=== PATIENT | male | born 1945 | race Caucasian/White ===

== ENCOUNTER 2023-09-06 09:23 | Outpatient (CLI) | payer MEDICARE, BC, SELFPAY | END 2023-09-06 09:24 | disposition home or self-care (01) | PROVIDERS: PCP Family Medicine; Visit Provider Physician Assistant | DX: E11.621 Type 2 diabetes mellitus with foot ulcer (principal); I87.2 Venous insufficiency (chronic) (peripheral); L97.511 Non-pressure chronic ulcer of other part of right foot limited to breakdown of skin; L97.422 Non-pressure chronic ulcer of left heel and midfoot with fat layer exposed; I25.10 Atherosclerotic heart disease of native coronary artery without angina pectoris; Z79.4 Long term (current) use of insulin | CPT/HCPCS: 97597; G0463 ==

== ENCOUNTER 2023-09-13 11:13 | Outpatient (CLI) | payer MEDICARE, BC, SELFPAY | END 2023-09-13 11:14 | disposition home or self-care (01) | LOC: WOUND 11:13 | PROVIDERS: PCP Family Medicine; Visit Provider Family Medicine | DX: E11.621 Type 2 diabetes mellitus with foot ulcer (principal); I87.2 Venous insufficiency (chronic) (peripheral); L97.512 Non-pressure chronic ulcer of other part of right foot with fat layer exposed; L97.421 Non-pressure chronic ulcer of left heel and midfoot limited to breakdown of skin; S81.802A Unspecified open wound, left lower leg, initial encounter; Z79.4 Long term (current) use of insulin | CPT/HCPCS: 11042; 97597 ==

== ENCOUNTER 2023-09-20 11:05 | Outpatient (CLI) | payer MEDICARE, BC, SELFPAY | END 2023-09-20 11:06 | disposition home or self-care (01) | LOC: WOUND 11:06 | PROVIDERS: PCP Family Medicine; Visit Provider Family Medicine | DX: E11.621 Type 2 diabetes mellitus with foot ulcer (principal); L97.512 Non-pressure chronic ulcer of other part of right foot with fat layer exposed; Z79.4 Long term (current) use of insulin | CPT/HCPCS: 11042 ==

== ENCOUNTER 2023-09-27 11:02 | Outpatient (CLI) | payer MEDICARE, BC, SELFPAY | END 2023-09-27 11:03 | disposition home or self-care (01) | LOC: WOUND 11:03 | PROVIDERS: PCP Family Medicine; Visit Provider Surgery | DX: E11.621 Type 2 diabetes mellitus with foot ulcer (principal); I87.2 Venous insufficiency (chronic) (peripheral); L97.512 Non-pressure chronic ulcer of other part of right foot with fat layer exposed; Z79.4 Long term (current) use of insulin | CPT/HCPCS: 97597 ==

== ENCOUNTER 2023-10-04 11:05 | Outpatient (CLI) | payer MEDICARE, BC, SELFPAY | END 2023-10-04 11:06 | disposition home or self-care (01) | LOC: WOUND 11:05 | PROVIDERS: PCP Family Medicine; Visit Provider Surgery | DX: E11.621 Type 2 diabetes mellitus with foot ulcer (principal); L97.515 Non-pressure chronic ulcer of other part of right foot with muscle involvement without evidence of necrosis; I87.2 Venous insufficiency (chronic) (peripheral); Z79.4 Long term (current) use of insulin | CPT/HCPCS: 11042; 87070; 87077; 87181; 87184; G0463 ==

== ENCOUNTER 2023-10-04 12:00 | Outpatient (CLI) | payer MEDICARE, BC, SELFPAY ==
--- NOTE | 2023-10-04 12:00 | XR_ITS ---
Patient: KIRSTEN HOLT Facility:?[facility] Patient ID:?[id number] Site Patient ID:?[id number]. Site :?[id number] Study:?XRay-Colonography Right FOOT 2V-10/04/2023 12:30:48 PM Ordering Physician:RUFUS Final Report: INDICATION: Wound big toe. COMPARISON: None. TECHNIQUE: Two-view study right foot. FINDINGS: No evidence of acute fracture or dislocation. Diffuse soft tissue swelling. No radiographic evidence of osteomyelitis. Dictated by Vishal Cardozo MD @ 10/05/2023 8:12:22 AM Signed by:?Vishal Cardozo MD @10/05/2023 8:12:22 AM (Electronic Signature)
== END 2023-10-04 12:01 | disposition home or self-care (01) ==
LOC: RAD 12:03
PROVIDERS: PCP Family Medicine; Visit Provider Surgery
DX: L97.512 Non-pressure chronic ulcer of other part of right foot with fat layer exposed (principal)
CPT/HCPCS: 11042; 73620; 87070; G0463

== ENCOUNTER 2023-10-11 10:13 | Outpatient (CLI) | payer MEDICARE, BC, SELFPAY | END 2023-10-11 10:14 | disposition home or self-care (01) | LOC: WOUND 10:13 | PROVIDERS: PCP Family Medicine; Visit Provider Surgery | DX: E11.621 Type 2 diabetes mellitus with foot ulcer (principal); L97.515 Non-pressure chronic ulcer of other part of right foot with muscle involvement without evidence of necrosis; Z79.4 Long term (current) use of insulin | CPT/HCPCS: 97597 ==

== ENCOUNTER 2023-10-18 10:28 | Outpatient (CLI) | payer MEDICARE, BC, SELFPAY | END 2023-10-18 10:29 | disposition home or self-care (01) | LOC: WOUND 10:28 | PROVIDERS: PCP Family Medicine; Visit Provider Surgery | DX: E11.621 Type 2 diabetes mellitus with foot ulcer (principal); L97.512 Non-pressure chronic ulcer of other part of right foot with fat layer exposed; Z79.4 Long term (current) use of insulin | CPT/HCPCS: 97597 ==

== ENCOUNTER 2023-10-25 10:21 | Outpatient (CLI) | payer MEDICARE, BC, SELFPAY | END 2023-10-25 10:22 | disposition home or self-care (01) | LOC: WOUND 10:21 | PROVIDERS: PCP Family Medicine; Visit Provider Surgery | DX: E11.621 Type 2 diabetes mellitus with foot ulcer (principal); L97.512 Non-pressure chronic ulcer of other part of right foot with fat layer exposed; Z79.4 Long term (current) use of insulin | CPT/HCPCS: 11042 ==

== ENCOUNTER 2023-11-01 10:27 | Outpatient (CLI) | payer MEDICARE, BC, SELFPAY ==
--- OUTSIDE RECORDS SUMMARY | 2023-11-01 10:30 | XMS_ITS | Continuity of Care Document ---
Author Name Unknown Organization [facility] Address [address] [place] [address] Phone Care Team Providers Care Ammonium Hydroxide Operator Name Role Phone Roshni Rousseau DPT Unavailable Unavailable Allergies, Adverse Reactions, Alerts Substance Reaction Status Criticality Penicillins Active No Information WARNIN allergy(ies) could not be collected because the type is not supported. Please contact the source practice for further details. Medications Medication Instructions Dosage Effective Dates (start - stop) Status Comments triamterene 37.5 mg-hydrochlorothiazid e 25 mg tablet take 1 tablet by oral route every day 1.00 tablet - Active tamsulosin 0.4 mg capsule take 1 capsule by oral route every day 1/2 hour following the same meal each day 0.4 MG - Active rosuvastatin 20 mg tablet take 1 tablet by oral route every day 20 MG - Active omeprazole 20 mg capsule,delayed release take 1 capsule by oral route every day 30 minutes to 1 hour before a meal 20 MG - Active metoprolol succinate ER 25 mg tablet,extended release 24 hr take 3 tablet by oral route 2 times every day 75 MG - Active metformin 500 mg tablet take 1 tablet by oral route 2 times every day with morning and evening meals 500 MG - Active losartan 100 mg tablet take 1 tablet by oral route every day 100 MG - Active levothyroxine 100 mcg capsule take 1 capsule by oral route every day 100 MCG - Active Novolin R FlexPen 100 unit/mL (3 mL) subcutaneous insulin pen - Active duloxetine 60 mg capsule,delayed release take 1 capsule by oral route every day 60 MG - Active clopidogrel 75 mg tablet take 1 tablet by oral route every day 75 MG - Active celecoxib 200 mg capsule take 1 capsule by oral route 2 times every day as needed 200 MG - Active amlodipine 5 mg tablet take 1 tablet by oral route every day 5 MG - Active Procedures Procedure Date PT Eval - High Complexity Neuromuscular Re-education Psychiatric Diagnostic Evaluation Teleph one Only Est Pt Eval New Pt Eval 45 Min Advance Directives Directive Yes / No Effective Date File Name No Information Encounters Encounter Description Practice Location Reason(s) For Visit Diagnoses Date Provider Providers Copied on Encounter RAJIV Hughes, [address], [place], [place], [id number], [place] tel:[phone] [place] [facility] No Information 3 Soham Barakat. [address], [place], [address], [place]. tel:[phone] RAJIV [facility], [address], [place], [place], [id number], [place] tel:[phone] [facility] Spinal stenosis, lumbar region with neurogenic claudicationRadic ulopathy, lumbar regionType 2 diabetes mellitus with diabetic neuropathy, unsp 3 Soham Barakat. [address], [address], [place], [address], [place]. tel:[phone] Referring Provider: Laron Basurto, [address], [place], [address] . tel:[phone] Psychiatric Diagnostic Evaluation Telephone Only RAJIV Hughes, [address], [place], [place], [id number], [place] tel:[phone] [facility] Pain disorder with related psychological factors 3 Selwyn Pabon. [address], [place], [address], [place]. tel:[phone] Referring Provider: Laron Basurto, [address], [place], [address] . tel:[phone] [facility], [address], [place], [place], [id number], [place] tel:[phone] [facility] Spinal stenosis, lumbar region with neurogenic claudicationRadic ulopathy, lumbar region 3 Foster Sam. [address], [place], [address], [place]. tel:[phone] Referring Provider: Laron Basurto, [address], [place], [address] . tel:[phone] Est Pt Eval [facility], [address], [place], [place], [id number], [place] tel:[phone] [facility] back pain (chief complaint) Spinal stenosis, lumbar region with neurogenic claudicationType 2 diabetes mellitus w/ diabetic neuropathyRadicul opathy, lumbar regionBody mass index (BMI) 40.0-44.9, adult 3 [place] Sam. [address], [place], [address], [place]. tel:[phone] Referring Provider: Laron Basurto, [address], [place], [address] . tel:[phone] New Pt Eval 45 Min [facility], [facility], [address], [place], [place], [id number], [place] tel:[phone] [facility] back pain (chief complaint) Body mass index (BMI) 40.0-44.9, adultSpinal stenosis, lumbar region with neurogenic claudicationRadic ulopathy, lumbar regionType 2 diabetes mellitus w/ diabetic neuropathy 3 Foster Sam. [address], [place], [address], [place]. tel:[phone] Referring Provider: Laron Basurto, [address], [place], [address] . tel:[phone] Family History Family Member Type Diagnosis Age At Onset No Information Payers Payer name Insurance type Covered green party ID Bernice galicia(s) Medicare Part B AKUA [id number] [employer] [id number] Social History Type Description Quantity Date Captured Comments Alcohol Use Details Unknown Caffeine Use Details Unknown Tobacco Use Status No Information Smoking Status No Information Sex Male Chief Complaint And Reason For Visit No Information Reason For Referral Reason For Referral No Information Plan Of Treatment Date Type Action Status Goal Lifestyle education regardin g diet completed Goal Lifestyle education regardin g diet completed Referral Ordered: Physical Therapy (related to Radiculopathy, lumbar region) ordered Referral Ordered: Referrals: Behavioral Health. Evaluate and treat ordered Referral Referred To: Physical Therapy Ordered: Referrals: Physical Therapy. Evaluate and treat ordered History Of Present Illness Encounter Date Complaint History Of Prese nt Illness back pain Location of pain is lower back. Pain is radiated to the legs. Symptoms are aggravated by standing and walking. Symptoms are relieved by lying down and sitting. back pain Location of pain isLocation of pain is lower back and legs. lower back and legs. Pain is radiated to the Pain is radiated to the left ankle right ankle, left calf, right calf, left foot, right foot, left thigh and right thigh., left ankle, right ankle, left calf, right calf, left foot, right foot, left thigh and right thigh. The patient describes the pain as The patient describes the pain as an ache. an ache. Symptoms are aggravated by Symptoms are aggravated by ascending stairs bending, daily activities, descending stairs, lifting, pushing, sitting, standing and walking., ascending stairs, bending, daily activities, descending stairs, lifting, pushing, sitting, standing and walking. Symptoms are relieved by Symptoms are relieved by rest and sitting. rest and sitting. Additional information: Feet are worse than back now. Functional Status Date Functional Assessmen t No Information Instructions Date Instruction Additional Infor mation - Schedule implant e valuation with physical therapy- Schedule implant evaluation with behavioral health- Prior authorization is in progress for MILD procedure, schedule when able- No [facility]LEY follow up required Related to Spinal stenosis, lumbar region with neurogenic claudication - Prior authorizatio n in progress for spinal cord stimulator trial Related to Type 2 diabetes mellitus w/ diabetic neuropathy Same plan of care as statement for above diagnosis, no changes Related to Radiculopathy, lumbar region Giving encouragement to exercise Related to Body mass index [BMI] 40.0-44.9, adult -Consider spinal cor d stimulation, literature provided today Related to Type 2 diabetes mellitus w/ diabetic neuropathy -Requested medical r ecords from [facility] ([place]Order MRI of the lumbar spine at [facility]-Order lateral flexion vs extension x ray of the lumbar spine at [facility]-Order stationary neutral A/P and lateral views x rays at [facility]-Pending imaging, consider MILD (Minimally Invasive Lumbar Decompression) and [place] procedures, literature provided today-Follow up after imaging with Dr. Hammond, [facility] [place] Related to Spinal stenosis, lumbar region with neurogenic claudication Same plan of care as statement for above diagnosis, no changes Related to Radiculopathy, lumbar region Lifestyle education regarding di et Related to Body mass index [BMI] 40.0-44.9, adult Lifestyle education regarding di et Related to Body mass index [BMI] 40.0-44.9, adult Assessments Type Assessment Date No Information Patient Care Teams Name Effective Dates (start - stop) Status Members No Information
--- OUTSIDE RECORDS SUMMARY | 2023-11-01 10:30 | XMS_ITS | Clinical Summary ---
Author Name Unknown Organization [employer] [facility] Address [place], [place] [address] Care Team Providers Care Eating Disorder Specialist Name Role Phone Soham James MD Primary Care Provider [phone] Hao Drew MD Unavailable [phone] Allergies Active Allergy Reactions Criticality Noted Date Comments Esomeprazole Magnesium Nausea Only 11/12/2012 INCREASED ACID Penicillins Hives 04/15/2014 Qqcbzlu-Kln-Jxj Reductase Inhibitors Nausea Only,Myalgia 04/15/2014 Medications Medication Sig Dispensed Refills Start Date End Date Status omeprazole (PRILOSEC) 20 mg Delayed-Release capsule Take 20 mg by mouth once daily before a meal. 06/08/2018 Active CPAPIndications:Cent ral sleep apnea,TING (obstructive sleep apnea) CPAP machine for home use at pressure: 12 cm, full face mask x1/3month with a full face cushion x1/mo; Length of Need: 99 months; Frequency of use: Daily 1 Device 10 10/29/2020 Active acetaminophen (TYLENOL) 325 mg tablet Take 650 mg by mouth every 4 hours if needed. Max acetaminophen dose: 4000mg in 24 hrs. Active amLODIPine (NORVASC) 2.5 mg tabletIndications:HT N (hypertension) Take 1 Tablet (2.5 mg) by mouth once daily. 30 Tablet 07/07/2023 Active camphor-menthol, 0.5%-0.5%, (SARNA ANTI-ITCH) lotionIndications:Pr uritus Apply topically to affected area(s) three times daily. 07/06/2023 Active diclofenac topical (VOLTAREN) 1 % gelIndications:Bilat eral thumb pain Apply 2 g topically to affected area(s) four times daily. 07/06/2023 Active DULoxetine (CYMBALTA) 60 mg Delayed-release capsuleIndications:P ain Take 1 Capsule (60 mg) by mouth once daily. 30 Capsule 07/06/2023 Active finasteride (PROSCAR) 5 mg tabletIndications:Be nign prostatic hyperplasia, unspecified whether lower urinary tract symptoms present Take 1 Tablet (5 mg) by mouth every morning. 30 Tablet 07/06/2023 Active folic acid 1 mg tabletIndications:Fo late deficiency Take 1 Tablet (1 mg) by mouth once daily. 30 Tablet 07/06/2023 Active gabapentin (NEURONTIN) 100 mg capsuleIndications:P ain Take 1 Capsule (100 mg) by mouth three times daily. 90 Capsule 07/06/2023 Active levothyroxine (LevoxyL) 100 mcg tabletIndications:Ac quired hypothyroidism Take 1 Tablet (100 mcg) by mouth before breakfast. 30 Tablet 07/06/2023 Active tamsulosin (FLOMAX) 0.4 mg capsuleIndications:B enign prostatic hyperplasia, unspecified whether lower urinary tract symptoms present Take 1 Capsule (0.4 mg) by mouth once daily after a meal. 30 Capsule 07/06/2023 Active thiamine (VITAMIN B1) 100 mg tabletIndications:Al cohol abuse Take 1 Tablet (100 mg) by mouth once daily. 30 Tablet 07/06/2023 Active Basaglar KwikPen U-100 Insulin 100 unit/mL (3 mL) penIndications:Type 2 diabetes mellitus with diabetic neuropathy, with long-term current use of insulin (HC) Inject 55 units subcutaneous two times daily. Product desired: BASAGLAR KWIKPEN 07/06/2023 Active insulin aspart, U-100, (NovoLOG Flexpen U-100 Insulin) 100 unit/mL (3 mL) penIndications:Type 2 diabetes mellitus with diabetic neuropathy, with long-term current use of insulin (HC) Inject 16 units subcutaneous three times daily before meals. 07/06/2023 Active CaneIndications:Acut e CVA (cerebrovascular accident) (HC) Single Point Cane for home use. For 99 weeks. 1 Each 07/06/2023 Active rosuvastatin (CRESTOR) 20 mg tabletIndications:ST elevation myocardial infarction involving left anterior descending (LAD) coronary artery (HC) Take 1 Tablet (20 mg) by mouth at bedtime. 90 Tablet 3 07/31/2023 Active nitroglycerin (NITROSTAT) 0.4 mg sublingual tabletIndications:Is chemic chest pain (HC) Place 1 Tablet (0.4 mg) under the tongue every 5 minutes if needed for Chest Pain (For chest pain x 3 doses.). 25 Tablet 3 07/31/2023 Active Ozempic 0.25 mg or 0.5 mg (2 mg/3 mL) pen Inject 0.25 mg subcutaneous once weekly. Inject 0.25 mg subcutaneous once weekly for 2 weeks, then go up to 0.5 mg thereafter. 06/02/2023 Active carvediloL (COREG) 6.25 mg tabletIndications:HT N (hypertension) Take 1 Tablet (6.25 mg) by mouth two times daily with meals. 180 Tablet 3 07/31/2023 Active clopidogreL (PLAVIX) 75 mg tabletIndications: CVD (arteriosclerotic cardiovascular disease) Take 1 Tablet (75 mg) by mouth once daily. 90 Tablet 3 07/31/2023 Active furosemide (LASIX) 40 mg tabletIndications:AK I (acute kidney injury) (HC),Chronic systolic heart failure (HC) Take 1 Tablet (40 mg) by mouth two times daily. 180 Tablet 07/31/2023 Active potassium chloride (KLOR-CON M10) 10 mEq extended-release tablet (part/cryst)Indicati ons:Chronic systolic heart failure (HC) Take 2 Tablets (20 mEq) by mouth two times daily with meals. 360 Tablet 3 07/31/2023 Active spironolactone (ALDACTONE) 25 mg tabletIndications:Ch ronic systolic heart failure (HC),Stage 3b chronic kidney disease (CKD) (HC) Take 1 Tablet (25 mg) by mouth every morning. 90 Tablet 3 07/31/2023 Active rivaroxaban (Xarelto) 20 mg tabletIndications:Pa roxysmal atrial fibrillation (HC) Take 1 Tablet (20 mg) by mouth once daily with evening meal. 90 Tablet 3 08/28/2023 Active Active Problems Problem Noted Date Diagnosed Date Bilateral thumb pain 07/01/2023 Anoxic Brain injury 06/23/2023 Encephalopathy acute 06/19/2023 Acute CVA (cerebrovascular accident) 06/16/2023 Shock 06/11/2023 DKA (diabetic ketoacidosis) 06/11/2023 High anion gap metabolic acidosis 06/11/2023 CARLENE (acute kidney injury) 06/11/2023 Right bundle branch block (RBBB) 06/11/2023 Hyperkalemia 06/11/2023 Stage 3b chronic kidney disease (CKD) 06/11/2023 Macrocytic anemia 06/11/2023 Primary osteoarthritis of right knee 08/14/2019 Major depressive disorder, single episode, mild 07/30/2019 Venous stasis dermatitis 07/30/2019 Central sleep apnea 06/25/2019 TING (obstructive sleep apnea) 06/25/2019 ST elevation myocardial infa rction involving left anterior descending (LAD) coronary artery 08/08/2018 Type 2 diabetes mellitus wit h diabetic neuropathy, unspecified 05/23/2016 Overview: Overview: DM2 Neuropathy Uncontrolled Acquired hypothyroidism 05/05/2015 Hyperlipidemia 05/05/2015 CAD (coronary artery disease), viejas coronary a rtery 10/30/2014 Systolic murmur 09/29/2014 Morbid obesity 04/28/2014 HTN (hypertension) 04/28/2014 Dyslipidemia 04/28/2014 Left knee DJD 04/28/2014 BPH (benign prostatic hyperplasia) 04/28/2014 Erectile dysfunction associa syl with type 2 diabetes mellitus 04/28/2014 Hypertensive heart disease without heart failure 04/28/2014 Resolved Problems Problem Noted Date Diagnosed Date Resolved Date Chest pain 09/29/2014 08/14/2019 Diabetes mellitus 04/28/2014 08/14/2019 Encounters Date Type Department Care Team Description 10/06/2023 Lab Requisition [facility] [phone] Jessica Barrow MD 10/05/2023 9:48 AM CDT - 10/05/2023 11:59 PM CDT [facility] [id number] [place] [address] [address] [place] [address] Zeny Isaac, Samina Nolasco, PT Left without seen 10/05/2023 Travel 10/03/2023 Patient Outreach [facility] [address] [place] [address] Bess [facility] Care Coordination - [facility] 09/22/2023 Telephone [facility] [address] [place] [phone] Hao Drew MD Results 09/21/2023 10:36 AM CDT - 09/21/2023 11:59 PM CDT Hospital Encounter [facility] [address] [place] [address] Zeny Isaac NP Bradshaw, Emily, PT 09/21/2023 Travel 09/14/2023 10:43 AM TRACTOR TRAILER TRUCK DRIVER - 09/14/2023 11:59 PM TRACTOR TRAILER TRUCK DRIVER Hospital Encounter [facility] [address] [place] [address] Zeny Isaac NP Bradshaw, Emily, PT 09/14/2023 Travel 09/07/2023 10:40 AM TRACTOR TRAILER TRUCK DRIVER - 09/07/2023 11:59 PM TRACTOR TRAILER TRUCK DRIVER Hospital Encounter [facility] [address] [place] [address] Zeny Isaac NP Bradshaw, Emily, PT 09/07/2023 Travel 09/06/[address] [facility] [address] [place] [address] Zeny Isaac NP MILLER HEAD ASSISTANT WET PROCESS ASSESSMENT 08/31/[address] [facility] [address] [place] [address] Zeny Isaac NP No Driving (No driving until BTW) 08/31/[address] [facility] [address] [place] [address] Zeny Isaac NP <No scans attached> 08/29/2023 2:07 PM TRACTOR TRAILER TRUCK DRIVER - 08/29/2023 11:59 PM TRACTOR TRAILER TRUCK DRIVER Hospital Encounter [facility] [address] [place] [address] Zeny Isaac NP Acute CVA (cerebrovascular accident) (HC) 08/28/2023 1:47 PM TRACTOR TRAILER TRUCK DRIVER - 08/28/2023 11:59 PM TRACTOR TRAILER TRUCK DRIVER Hospital Encounter [facility] [address] [facility] [address] [place] [address] Zeny Isaac NP Sanford, Abigail H, PT Acute CVA (cerebrovascular accident) (HC) 08/28/2023 Travel 08/22/2023 Telephone [facility] [address] [facility] [address] [place] [address] Hao Drew MD Prior Authorization (Eliquis) 08/17/2023 10:00 AM TRACTOR TRAILER TRUCK DRIVER Home Care Visit [address] [address] Sisi Angeles RN SN - OASIS DISCHARGE 08/17/2023 Home Care Visit [address] [address] Isabell Yu RN CARE COORDINATION 08/15/2023 12:54 PM TRACTOR TRAILER TRUCK DRIVER - 08/15/2023 11:59 PM TRACTOR TRAILER TRUCK DRIVER Hospital Encounter [facility] [address] [place] [address] Hao Drew MD Paroxysmal atrial fibrillation (HC) 08/15/2023 11:00 AM TRACTOR TRAILER TRUCK DRIVER Home Care Visit [address] [address] Sisi Angeles RN SN - HOME VISIT 08/14/2023 1:45 PM TRACTOR TRAILER TRUCK DRIVER Office Visit [facility] [address] [facility] [address] [place] [address] Zeny Isaac NP Hospital F/U (TBI) 08/14/2023 Travel 08/11/2023 11:30 AM TRACTOR TRAILER TRUCK DRIVER Home Care Visit [address] [place] [address] Mariaelena Hernandez, SONIA SN - HOME VISIT 08/09/2023 12:30 PM TRACTOR TRAILER TRUCK DRIVER Home Care Visit [address] [address] Christianne Andrade, PT PT - DISCIPLINE DISCHARGE 08/09/2023 Travel 08/08/2023 11:00 AM TRACTOR TRAILER TRUCK DRIVER Home Care Visit [address] [address] Sisi Angeles RN SN - HOME VISIT 08/07/2023 Patient Outreach [facility] [address] [place] [address] Bess Conroy [facility] Injury [facility] Care Coordination - [facility] 08/04/2023 10:00 AM TRACTOR TRAILER TRUCK DRIVER Home Care Visit [address] [address] Christianne Andrade, PT PT - HOME VISIT 08/04/2023 Travel 08/02/2023 4:00 PM TRACTOR TRAILER TRUCK DRIVER Home Care Visit [address] [address] Sisi Angeles RN SN - HOME VISIT from Last 3 Months Immunizations Name Administration Dates Next Due Influenza A (H1N1), Inactivated 08/10/2009 Influenza Intradermal PF 18-64 yrs 05/15/2012 Influenza, High-dose Inactivated 04/10/2018,04/10 Influenza, IIV3 (Age >=3 years) 08/25/2006 Influenza, Inactivated AIIV4 (Age 65+ Years) Preserv Free 05/24/2023 Pneumococcal Poly,23-Valent (Pneumovax) 12/05/19 19 Pneumococcal conj 13-Valent (Prevnar 13) 009 Tdap 02/23/2010 Family History Medical History Relation Name Comments Asthma Father Lung cancer Mother Relation Name Status Comments Father Mother Social History Tobacco Use Types Packs/Day Years Used Date Smoking Tobacco: Former Cigarettes 2 40 0 12/08/1964 - 12/08/2004 Cigars Smokeless Tobacco: Never Tobacco Cessation:Counseling Given: No Alcohol Use Standard Drinks/Week Comments Yes 14 (1 standard drink = 0.6 oz pure alcohol) couple drinks a night, drinks 1/2 gallon of rum every week, 3 drinks a day Social Connections Answer Date Recorded Frequency of Communication with Friends and Fami ly 0 06/23/2023 Financial Resource Strain Answer Date R ecorded Difficulty of Paying Living Expenses 3 06/23/2023 Difficulty of Paying Living Expenses Not on file 06/23/2023 Food Insecurity Answer Date Recorded Worried About Running Out of Food in the Last Ye ar 1 06/23/2023 Transportation Needs Answer Date Record ed Lack of Transportation (Medical) 1 06/23/2023 Housing Stability Answer Date Recorded Unable to Pay for Housing in the Last Year 1 06/23/2023 Sex and Gender Information Value Date Recorded Sex Assigned at Not on file Gender Identity Not on file Sexual Orientation Not on file Obstetrics History Last Filed Vital Signs Vital Sign Reading Time Taken Comments Blood Pressure 130/70 08/17/2023 10:43 AM TRACTOR TRAILER TRUCK DRIVER Pulse 67 08/17/2023 10:43 AM TRACTOR TRAILER TRUCK DRIVER Temperature 36.7 ??C (98.1 ??F) 08/17/2023 10:[address] Respiratory Rate 20 08/17/2023 10:43 AM TRACTOR TRAILER TRUCK DRIVER Oxygen Saturation 100% 08/17/2023 10:43 AM TRACTOR TRAILER TRUCK DRIVER Inhaled Oxygen Concentration - - Weight 120.2 kg (265 lb) 07/31/2023 10:43 AM TRACTOR TRAILER TRUCK DRIVER Height 180.3 cm (5' 11) 07/31/2023 10:43 AM TRACTOR TRAILER TRUCK DRIVER Body Mass Index 36.96 07/31/2023 10:43 AM TRACTOR TRAILER TRUCK DRIVER Plan of Treatment Upcoming Encounters Date Type Department Care Team (Late st Contact Info) Description 11/07/2023 1:15 PM CDT Office Visit [facility] [address] [facility] [address] [place] [address] Rose Marie Sands DO [address] [place] [address] Health Maintenance Due Date Last Done Comments Depression screening for age 12+ 1959 Hepatitis C screening for ag e 18-79 1965 Zoster (shingles) series for age 50+ (1 of 2) 1997 Medicare Wellness for age 65+ 2012 Tetanus booster 02/24/2020 02/23/2010 COVID-19 vaccine series ( season) 2023 05/09/2022, 01/30/2022, 06/07/2021, Additional history exists Influenza for age 65+ 03/10/2024 05/24/2023 , 04/10/2018, 04/30/2014, Additional history exists BMI (ht and wt on same day) for age 18+ 07/31/2024 07/31/2023, 11/18/2021, 05/20/2019, Additional history exists Tdap Completed 02/23/2010 Pneumococcal series for age 65+ Completed 9, 08/18/2008 Medical Devices Implanted Type Area Continuous Yarn Dyeing Machine Operator Device Identifier Shelf Expiration Date Model / Serial / Lot Cmnt Bone Simplex Hv Gentamicin - [id number] Implanted:Qty: 2 on 04/28/2014 by Amrik Falcon MD at [facility] Left: Knee [employer] 11/06/2014 6195-1-001 # / / [id number] Patella [id number] Triathlon Asymmetric X3 - [id number] Implanted:Qty: 1 on 04/28/2014 by Amrik Falcon MD at [facility] Left: Knee [employer] 02/06/2019 5551-G-350 # / / [id number] Fem Lt Sz7 Triathlon Post Stbznon Pors - [id number] Implanted:Qty: 1 on 04/28/2014 by Amrik Falcon MD at [facility] Left: Knee [employer] 02/06/2018 5515-F-701 # / / [id number] Baseplate Tib Sz6 Triathlon Pe - [id number] Implanted:Qty: 1 on 04/28/2014 by Amrik Falcon MD at [facility] Left: Knee [employer] 12/07/2018 5521-B-600 # / / [id number] Insert Knee Sz6 11mm Triathlonpost Stbz X3 - [id number] Implanted:Qty: 1 on 04/28/2014 by Amrik Falcon MD at [facility] Left: Knee [employer] 02/06/2019 5532-G-611 # / / [id number] Triathlon X3 Asymmetric Patella [id number] - [id number] Implanted:Qty: 1 on 08/14/2019 by Amrik Falcon MD at [facility] Right: Knee [employer] 02/19/2024 5551-G-381 -E / / [id number] Triathlon X3 Tibial Bearing Insert Cs Valery 5 Typ Cs Thkns 11mm - [id number] Implanted:Qty: 1 on 08/14/2019 by Amrik Falcon MD at [facility] Right: Knee [employer] 03/24/2024 5531-G-511 -E / / [id number] Cmnt Bone Simplex Hv - [id number] Implanted:Qty: 1 on 08/14/2019 by Amrik Falcon MD at [facility] Right: Knee [employer] 12/07/2020 6194-1-001 # / / [id number] Cmnt Bone Simplex Hv Gentamicin - [id number] Implanted:Qty: 1 on 08/14/2019 by Amrik Falcon MD at [facility] Right: Knee [employer] 06/08/2020 6195-1-001 # / / [id number] Fem Rt Sz6 Triathlon Cruc Ret Co Cr - [id number] Implanted:Qty: 1 on 08/14/2019 by Amrik Falcon MD at [facility] Right: Knee [employer] 01/11/2024 5510-F-602 # / / [id number] Baseplate Tib Sz5 Triathlon Pe - [id number] Implanted:Qty: 1 on 08/14/2019 by Amrik Falcon MD at [facility] Right: Knee [employer] 04/17/2024 5521-B-500 # / / [id number] Procedures Procedure Name Priority Date/Time Associated Diagnosis Comments REFERRAL ID/SUSC,NONURINE Routine 10/06/2023 11:30 AM CDT EXTENDED HOLTER Routine 09/20/2023 Paroxysmal atrial fibrillation (HC) from Last 3 Months Results * (ABNORMAL) REFERRAL ID/SUSC,NONURINE (10/06/2023 11:30 AM CDT) CULTURE RESULT(A) 10/10/2023 10:37 AM CDT [facility] CULTURE Streptococcus anginosus 10/10/2023 10:37 AM CDT [facility] Other Client Collect / Unknown 10/06/2023 11:30 AM CDT 10/06/2023 9:05 PM CDT Narrative Organism Antibiotic Method Susceptibility Streptococcus anginosus PENICILLIN <=0.06: S Streptococcus anginosus ERYTHROMYCIN R Streptococcus anginosus CLINDAMYCIN R Streptococcus anginosus VANCOMYCIN S Streptococcus anginosus CLARITHROMYCIN R Jessica Barrow MD MICROBIOLOGY [facility] [address] * EXTENDED HOLTER (09/20/2023) Hao Drew MD CARDIAC SERVICES ORD from Last 3 Months Advance Directives * Full Code (Latest Code Status on File) Date Activated Date Inactivated Comments 06/23/2023 3:00 PM 07/07/2023 1:09 PM Question Answer Comments Code Status Discussion: Reviewed Preferences * Full Code Date Activated Date Inactivated Comments 06/12/2023 8:09 AM 06/23/2023 2:49 PM Question Answer Comments Code Status Discussion: Reviewed Preferences * Full Code Date Activated Date Inactivated Comments 06/11/2023 8:40 PM 06/12/2023 8:09 AM Question Answer Comments Code Status Discussion: Unable to Assess Preferences, Provider to review later * Full Code Date Activated Date Inactivated Comments 08/14/2019 9:32 AM 08/15/2019 4:49 PM * Full Code Date Activated Date Inactivated Comments 08/07/2018 11:50 PM 08/09/2018 3:08 PM Care Teams Eating Disorder Specialist Relationship Specialty Start Date End Date Soham James MD [address] [place] [phone] PCP - General Family Practice 04/10/14 Hao Drew MD [address] [facility] [address] [facility] [address] [place] [address] Cardiology Cardiovascular Disease 12/30/19
--- OUTSIDE RECORDS SUMMARY | 2023-11-01 10:31 | XMS_ITS | Encounter Summary ---
Author Name Unknown Organization [facility] Address [address] [place] [address] Care Team Providers Care Boat Loader Helper Name Role Phone Soham James M.D., Ph.D. Primary Care Provider Reason for Visit * Reason Comments Med Refill Encounter Details Date Type Department Care Team (Late st Contact Info) Description 08/11/2023 Refill Department of Family Medicine, [facility], in [address] [phone] Soham James M.D., Ph.D. [address] [place] [phone] Med Refill Social History Tobacco Use Types Packs/Day Years Used Date Smoking Tobacco: Former Cigarettes Q uit: 05/21/2008 Smokeless Tobacco: Never Alcohol Use Standard Drinks/Week Comments Yes 0 (1 standard drink = 0.6 oz pur e alcohol) 2 drinks/night PHQ-2 Answer Date Recorded PHQ-2 Score 2 05/31/2023 Depression Answer Date Recor ded PHQ-9 Total Score (max 27) 3 05/31 Nutrition Answer Date Recorded Nutrition: EVOO Fat Source Unknown 08/27 Nutrition: Servings of Fruits/Vegetables per Day Not on file 08/27/2020 Dental Answer Date Recorded Dental: Regular Dentist Unknown 08/27/19 21 Sex and Gender Information Value Date Recorded Sex Assigned at Not on file Gender Identity Not on file Sexual Orientation Not on file documented as of this encounter Miscellaneous Notes * Telephone Encounter - Edita Ba L.PJoshNJosh - 08/17/2023 8:02 AM WOODS MANAGER Per AVS from 08/14/2023 patient is taking Gabapentin 100mg TID S MANAGER * Telephone Encounter - Jay Quincy Renae - 08/11/2023 11:36 AM CST Nurse review: Med Refill Team is unable to forward request to provider; Discrepancy; Verification Required. Directions for gabapentin are not complete on med list. - please complete directions Request for folic acid has been reviewed and can be forwarded to the provider. Primary Provider: Soham James M.D., Ph.D. Requested Prescriptions Pending Prescriptions Disp Refills folic acid 1 mg tablet 90 tablet 3 Sig: Take 1 tablet (1 mg total) by mouth daily. gabapentin (NEURONTIN) 100 mg capsule Sig: Take 1 capsule (100 mg total) by mouth. S MANAGER documented in this encounter Plan of Treatment Not on file documented as of this encounter Visit Diagnoses Not on filedocumented in this encounter Additional Health Concerns Assessment Noted Time PHQ-9 Depression Total Score: 3 05/31/20 23 3:22 PM WOODS MANAGER documented as of this encounter Care Teams Boat Loader Helper Relationship Specialty Start Date End Date Soham James M.D., Ph.D. [address] [place] [phone] PCP - General 12/22/16 documented as of this encounter
--- OUTSIDE RECORDS SUMMARY | 2023-11-01 10:31 | XMS_ITS | Encounter Summary ---
Author Name Unknown Organization [facility] Address [address] [place] [address] Care Team Providers Care Gun Welder Name Role Phone Soham James M.D., Ph.D. Primary Care Provider Reason for Visit * Reason Comments Med Refill Encounter Details Date Type Department Care Team (Late st Contact Info) Description 09/14/2023 Refill Department of Family Medicine, [facility], in [address] [phone] Soham James M.D., Ph.D. [address] [place] [phone] Med Refill Social History Tobacco Use Types [...] on file documented as of this encounter Plan of Treatment Not on file documented as of this encounter Visit Diagnoses Not on filedocumented in this encounter Additional Health Concerns Assessment Noted Time PHQ-9 Depression Total Score: 3 05/31/20 23 3:22 PM LEAD ELECTRICAL CONTROLS ENGINEER documented as of this encounter Care Teams Gun Welder Relationship Specialty Start Date End Date Soham James M.D., Ph.D. [address] [phone] PCP - General 12/22/16 documented as of this encounter
--- OUTSIDE RECORDS SUMMARY | 2023-11-01 10:31 | XMS_ITS | Encounter Summary ---
Author Name Unknown Organization [facility] Address [address] [place] [address] Care Team Providers Care Dowel Inspector Name Role Phone Soham James M.D., Ph.D. Primary Care Provider Reason for Visit * Reason Comments Med Change Request Encounter Details Date Type Department Care Team (Late st Contact Info) Description 08/23/2023 Refill Department of Family Medicine, [facility], in [address] [phone] Soham James M.D., Ph.D. [address] [place] [phone] Med Change Request Social History Tobacco Use Types Packs/Day Years [...] documented as of this encounter Visit Diagnoses Diagnosis Diabetes Mellitus Type 2 With Diabetic Neuropathy (HCC) documented in this encounter Additional Health Concerns Assessment Noted Time PHQ-9 Depression Total Score: 3 05/31/20 23 3:22 PM DECKHAND FISHING VESSEL documented as of this encounter Care Teams Dowel Inspector Relationship Specialty Start Date End Date Soham James M.D., Ph.D. [address] [place] [phone] PCP - General 12/22/16 documented as of this encounter
--- OUTSIDE RECORDS SUMMARY | 2023-11-01 10:31 | XMS_ITS | Encounter Summary ---
Author Name Unknown Organization [facility] Address [address] [place] [address] Care Team Providers Care Sales Representative Leather Goods Name Role Phone Soham James M.D., Ph.D. Primary Care Provider Reason for Referral * Outpatient (Routine) - Authorized Specialty Diagnoses / Procedures Referred By Rj rush Referred To Contact Diagnoses Pain Neck Pain Shoulder Right Soham James M.D., Ph.D. [address] [place] [phone] External, Referring Provider Referral ID Status Reason Start Date Expiration Date Visits Requested Visits Authorized [id number] Authorized Patient Preference 10/11/2023 04/11/2025 1 1 Reason for Visit * Reason Comments Chronic Disease Management Follow up had heart attack/stroke. Would like to restart Ozempic * Appointment Request (Routine) - Closed Specialty Diagnoses / Procedures Referred By Rj rush Referred To Contact Family Medicine Referral ID Status Reason Start Date Expiration Date Visits Re quested Visits Authorized [id number] Closed 07/20/2023 07/19/2024 1 1 Encounter Details Date Type Department Care Team (Latest Contact Info) Description 10/11/2023 6:00 PM CDT Office Visit Department of Family Medicine, [facility], in [address] [phone] Soham James M.D., Ph.D. 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); Pain Neck; Pain Shoulder Right Discharge Disposition: Home or Self Care Social History Tobacco Use Types Packs/Day Years Used Date Smoking Tobacco: Former Cigarettes Q uit: 05/21/2008 Smokeless Tobacco: Never Alcohol Use Standard Drinks/Week Comments Yes 0 (1 standard drink = 0.6 oz pur e alcohol) 2 drinks/night PHQ-2 Answer Date Recorded PHQ-2 Score 2 10/11/2023 Depression Answer Date Recor ded PHQ-9 Total Score (max 27) 5 10/10 Nutrition Answer Date Recorded Nutrition: EVOO Fat Source Unknown 08/27 Nutrition: Servings of Fruits/Vegetables per Day Not on file 08/27/2020 Dental Answer Date Recorded Dental: Regular Dentist Unknown 08/27/19 21 Sex and Gender Information Value Date Recorded Sex Assigned at Not on file Gender Identity Not on file Sexual Orientation Not on file documented as of this encounter Last Filed Vital Signs Vital Sign Reading Time Taken Comments Blood Pressure 133/84 10/11/2023 5:58 PM CDT Pulse 75 10/11/2023 5:58 PM CDT Temperature 36.5 ??C (97.7 ??F) 10/11/2023 5:58 PM CD T Respiratory Rate - - Oxygen Saturation 100% 10/11/2023 5:58 PM CDT Inhaled Oxygen Concentration - - Weight 123 kg (271 lb 9.7 oz) 10/11/2023 5:58 PM CDT Height - - Body Mass Index 39.32 05/31/2023 2:47 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 - 10/11/2023 6:00 PM CDT SUBJECTIVE CHIEF COMPLAINT / REASON FOR VISIT Shin Best is a 78 y.o. male who presents for evaluation of Chronic Disease Management (Follow up had heart attack/stroke. Would like to restart Ozempic). HISTORY OF PRESENT ILLNESS This is a 78 year old medically complex male accompanied by his spouse today for follow up. He had a cardiac arrest, now has completed rehab with no cardiac symptoms. He has been recovering also from stroke. He notes he sleeps more than in the past. However, he has been having to be inactive due to a healing wound on his right foot, treating with the [facility] wound clinic (on antibiotics, improving, but blood sugars have been a bit erratic with no hypoglycemia). His gait and balance have improved with therapy. He is using continuous positive airway pressure device, very compliant. He needs a new continuous positive airway pressure device. He has a facial rash, possibly from the continuous positive airway pressure device. He has not had Ozempic for nearly a month. He has diffuse joint pain especially lower extremities, right neck and shoulder, and low back. The following portions of the patient's history were reviewed and updated as appropriate: allergies, current medications, family history, medical history, social history, surgical history, and problem list. REVIEW OF SYSTEMS Constitutional: Positive for fatigue. - Negative for fever and loss of appetite. Skin: Positive for skin rash. Respiratory: - Negative for shortness of breath. Cardiovascular: Positive for swelling in the legs or feet. - Negative for chest pain, pressure or tightness and rapid or fluttering heart beat. Musculoskeletal: Positive for pain or stiffness in the joints, back pain, joint swelling and musclepain/stiffness. Neurological: Positive for loss of balance or tendency to fall easily. OBJECTIVE PHYSICAL EXAMINATION Vitals and nursing note reviewed. Constitutional General: He is not in acute distress. Appearance: Normal appearance. He is well-developed. He is obese. HENT Head: Normocephalic and atraumatic. Right Ear: Tympanic membrane, ear canal and external ear normal. Left Ear: Tympanic membrane, ear canal and external ear normal. Nose: Nose normal. Mouth/Throat: Mouth: Mucous membranes are moist. Pharynx: Oropharynx is clear. Eyes Conjunctiva/sclera: Conjunctivae normal. Neck Thyroid: No thyromegaly. Cardiovascular Rate and Rhythm: Normal rate and regular rhythm. Pulses: Normal pulses. Dorsalis pedis pulses are 2+ on the right side and 2+ on the left side. Posterior tibial pulses are 2+ on the right side and 2+ on the left side. Heart sounds: Normal heart sounds. Pulmonary Effort: Pulmonary effort is normal. Breath sounds: Normal breath sounds. No rales. Chest Chest wall: No tenderness. Abdominal General: Bowel sounds are normal. Palpations: Abdomen is soft. Musculoskeletal Cervical back: Normal range of motion and neck supple. Right foot: Normal range of motion. No deformity. Left foot: Normal range of motion. No deformity. Comments: Bilateral pedal edema 1+, stable. Feet Right foot: Protective Sensation: 10 sites tested. 10 sites sensed. Left foot: Protective Sensation: 10 sites tested. 10 sites sensed. Lymphadenopathy Cervical: No cervical adenopathy. Skin General: Skin is warm and dry. Capillary Refill: Capillary refill takes less than 2 seconds. Comments: Lower portion of face with mild erythema and fine scaling. Right foot is dressed and was not evaluated. Neurological General: No focal deficit present. Mental Status: He is alert and oriented to person, place, and time. Psychiatric Behavior: Behavior normal. Thought Content: Thought content normal. Judgment: Judgment normal. ASSESSMENT / PLAN Shin was seen today for chronic disease management. Diagnoses and all orders for this visit: Coronary Artery Disease With Stable Angina (HCC) Stroke Cerebrovascular Accident Personal History Hypersomnia Apnea Sleep Obstructive - DME Medical Justification: CPAP - DME CPAP; DME Order Dermatitis Seborrheic - triamcinolone (KENALOG) 0.1 % cream; Apply 1 Application topically 2 (two) times a day. Apply to face. - clotrimazole (LOTRIMIN) 1 % cream; Apply 1 Application topically 2 (two) times a day. Apply to face. Wound Foot Open Subsequent Right Diabetes Mellitus Type 2 With Diabetic Neuropathy (HCC) - Hemoglobin A1c Diabetes Mellitus Type 2 With Other Circulatory Complication ([facility]) Pain Neck - External referral ancillary ([facility]) - gabapentin (NEURONTIN) 100 mg capsule; Take 2 capsules (200 mg total) by mouth 3 (three) times a day for 14 days, THEN 3 capsules (300 mg total) 3 (three) times a day. Pain Shoulder Right - External referral ancillary ([facility]) Other orders - semaglutide (OZEMPIC) 2 mg/dose (8 mg/3 mL) injection; Inject 2 mg under the skin every 7 (seven)days. Otherwise continue current medications and treatments including with wound care specialists. Start physical therapy and increase gabapentin as above. documented in this encounter Plan of Treatment Not on file documented as of this encounter Procedures Procedure Name Priority Date/Time Associated Diagnosis Comments HEMOGLOBIN A1C, B Routine 10/11/2023 7:1 2 PM CDT Diabetes Mellitus Type 2 With Diabetic Neuropathy (HCC) documented in this encounter Results * (ABNORMAL) Hemoglobin A1c (10/11/2023 7:12 PM CDT) Hemoglobin A1c, B 8.6(H) 4.2 - 5.6 % 10/11/2023 7:26 PM CDT CNFL Comment: Hemoglobin A1c values greater than or equal to 6.5 percent are diagnostic for diabetes mellitus. ??Diagnosis should be confirmed by repeat testing. ??In diabetic patients, HbA1c goals should be discussed with healthcare provider. Blood (Blood, Venous) 10/11/2023 7:12 PM CDT 10/11/2023 7:13 PM CDT Soham James M.D., Ph.D. LAB BLOOD ADD-O N [facility] [address] [place] [id number], [facility] in [address] [address] documented in this encounter Visit Diagnoses Diagnosis Coronary Artery Disease With Stable Angina (HCC)- Primary Stroke Cerebrovascular Accident Personal History Hypersomnia Apnea Sleep Obstructive Dermatitis Seborrheic Wound Foot Open Subsequent Right Diabetes Mellitus Type 2 With Diabetic Neuropathy (HCC) 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) Pain Neck Pain Shoulder Right documented in this encounter Additional Health Concerns Assessment Noted Time PHQ-9 Depression Total Score: 5 10/11/19 24 9:23 PM CDT documented as of this encounter Care Teams Sales Representative Leather Goods Relationship Specialty Start Date End Date Soham James M.D., Ph.D. [address] [place] [phone] PCP - General 12/22/16 documented as of this encounter
--- OUTSIDE RECORDS SUMMARY | 2023-11-01 10:31 | XMS_ITS | Encounter Summary ---
Author Name Unknown Organization [facility] Address [address] [place] [address] Care Team Providers Care Septic Tank Setter Name Role Phone Soham James M.D., Ph.D. Primary Care Provider Reason for Visit * Reason Comments Med Change Request Encounter Details Date Type Department Care Team (Late st Contact Info) Description 09/15/2023 Refill Department of Family Medicine, [facility], in [address] [phone] Soham James M.D., Ph.D. 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 [id number] [phone] PCP - General 12/22/16 documented as of this encounter
--- OUTSIDE RECORDS SUMMARY | 2023-11-01 10:31 | XMS_ITS | Encounter Summary ---
Author Name Unknown Organization [facility] Address [address] [place] [address] Care Team Providers Care Mural Painter Name Role Phone Soham James M.D., Ph.D. Primary Care Provider Reason for Visit * Reason Onset Date Comments Med Question 09/17/2023 Encounter Details Date Type Department Care Team (Late st Contact Info) Description 09/17/2023 Nurse Triage Department of Family Medicine, [facility], in [address] [phone] Tracey Thompson R.N. [address] [place] [phone] Med Question Social History Tobacco Use Types Packs/Day Years [...] encounter Miscellaneous Notes * Telephone Encounter - Tracey Thompson R.N. - 09/17/2023 1:48 PM CDT Chief Complaint / Reason for Call Patient is a 78 y.o. male calling regarding Med Question. Assessment Concern: Sunita from [facility] pharmacy calls stating that patient called today to refill his Basaglar insulin because he is completely out. Reviewed medical record informed Sunita that an Rx was sent on 11/07/2022 which [facility] did not have. Verbal order provided to Sunita at [facility] The recommended disposition is Other. documented in this encounter Plan of Treatment Not on file documented as of this encounter Visit Diagnoses Not on filedocumented in this encounter Additional Health Concerns Assessment Noted Time PHQ-9 Depression Total Score: 3 05/31/20 23 3:22 PM SHOP HAND documented as of this encounter Care Teams Mural Painter Relationship Specialty Start Date End Date Soham James M.D., Ph.D. [address] [place] [phone] PCP - General 12/22/16 documented as of this encounter
--- OUTSIDE RECORDS SUMMARY | 2023-11-01 10:31 | XMS_ITS | Clinical Summary ---
Author Name Unknown Organization [facility] Address [address] [place] [address] Care Team Providers Care Java Solutions Architect Name Role Phone Soham James M.D., Ph.D. Primary Care Provider Source Comments Patient records contain information from all sites at [facility]. For routine questions regarding patient records, call [phone] during business hours, M-F 8:00 AM - 5:00 PM Central Time. Record requests for emergency care only can be directed to [phone] at any time.[facility] Allergies Active Allergy Reactions Criticality Noted Date Comments Esomeprazole Magnesium Nausea Only 11/12/2012 INCREASED ACID Penicillins Hives (Reselect Reaction) 04/15/2014 Uskkryo-Ash-Uwj Reductase Inhibitors Myalgia 04/15/2014 Medications Medication Sig Dispensed Refills Start Date End Date Status insulin syringe-needle U-100 1 mL 29 gauge x 1/2 syringe 11/10/2017 Active Accu-Chek Compact Plus Test strip USE TO TEST 3 TIMES DAILY 300 strip 3 07/22/2019 Active blood-glucose meter miscIndications:Di abetes Mellitus Type 2 With Other Circulatory Complication Hyperglycemic (HCC) Test as directed for diabetes control. Accu Check Guide Me Meter 1 each 08/28/2019 Active lancets 3 each daily. 300 each 3 09/12/2019 Active Accu-Chek Guide test strips stripsIndications: Diabetes Mellitus Type 2 With Other Circulatory Complication Hyperglycemic (HCC) TEST 3 TIMES DAILY. E11.9 300 strip 3 05/28/2021 Active desonide (DESOWEN) 0.05 % cream Apply 1 application topically 2 (two) times a day. Apply to affected area. 10/14/2021 Active clopidogreL (PLAVIX) 75 mg tablet take 1 tablet by mouth every day 90 tablet 3 05/12/2023 Active rosuvastatin (CRESTOR) 20 mg tabletIndications: Hyperlipidemia TAKE 1 TABLET BY MOUTH EVERY DAY 90 tablet 1 05/31/2023 Active insulin aspart U-100 (NovoLOG Flexpen U-100 Insulin) 100 unit/mL (3 mL) injectionIndicatio ns:Diabetes Mellitus Type 2 With Other Circulatory Complication Hyperglycemic (HCC) Inject 20 Units under the skin 3 (three) times a day with meals. 60 mL 3 05/31/2023 4 Active finasteride (PROSCAR) 5 mg tabletIndications: Urgency Urinary Take 1 tablet (5 mg total) by mouth daily. 90 tablet 3 05/31/2023 Active DULoxetine (CYMBALTA) [address] capsuleIndications :Depression Major One Episode Full Remission (HCC) take 1 capsule by mouth every day 90 capsule 3 07/05/2023 Active acetaminophen (TYLENOL) 325 mg tablet Take 650 mg by mouth every 4 (four) hours as needed. Active apixaban (ELIQUIS) 5 mg tablet Take 5 mg by mouth. 07/07/2023 Active carvediloL (COREG) 6.25 mg tablet Take 6.25 mg by mouth. 07/06/2023 Active diclofenac sodium (VOLTAREN) 1 % gel Apply 2 g topically. 07/06/2023 Active furosemide (LASIX) 40 mg tablet Take 40 mg by mouth. 07/06/2023 Active camphor-menthoL (SARNA) 0.5-0.5 % lotion Apply topically. 07/06/2023 Active nystatin (MYCOSTATIN) 100,000 unit/mL suspension 06/23/2023 Active potassium chloride (KLOR-CON M) 10 mEq ER tablet Take 20 mEq by mouth. 07/06/2023 Active spironolactone (ALDACTONE) 25 mg tablet Take 25 mg by mouth. 07/07/2023 Active tamsulosin (FLOMAX) 0.4 mg 24 hr capsule Take 0.4 mg by mouth. 07/06/2023 Active thiamine (VITAMIN B1) 100 mg tablet Take 100 mg by mouth. 07/06/2023 Active amLODIPine (NORVASC) 2.5 mg tablet Take 2.5 mg by mouth. 07/07/2023 Active nitroglycerin (NITROSTAT) 0.4 mg SL tabletIndications: Coronary Artery Disease With Stable Angina (HCC) Place 1 tablet (0.4 mg total) under the tongue every 5 (five) minutes as needed for chest pain. 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 90 tablet 3 07/20/2023 Active omeprazole (PriLOSEC) [address] capsule take 1 capsule by mouth every day 90 capsule 3 07/27/2023 Active folic acid 1 mg tablet Take 1 tablet (1 mg total) by mouth daily. 90 tablet 3 08/17/2023 Active Basaglar KwikPen U-100 Insulin 100 unit/mL (3 mL) injectionIndicatio ns:Diabetes Mellitus Type 2 With Diabetic Neuropathy (HCC) INJECT 70 UNITS UNDER THE SKIN 2 (TWO) TIMES A DAY. 126 mL 09/18/2023 Active semaglutide (OZEMPIC) 2 mg/dose (8 mg/3 mL) injection Inject 2 mg under the skin every 7 (seven) days. 9 mL 3 10/11/2023 Active gabapentin (NEURONTIN) 100 mg capsuleIndications :Pain Neck Take 2 capsules (200 mg total) by mouth 3 (three) times a day for 14 days, THEN 3 capsules (300 mg total) 3 (three) times a day. 810 capsule 3 10/11/2023 5 Active DME CPAPIndications:Ap romelia Sleep Obstructive DME Order 1 each 10/11/2023 Active triamcinolone (KENALOG) 0.1 % creamIndications:D ermatitis Seborrheic Apply 1 Application topically 2 (two) times a day. Apply to face. 30 g 11 10/11/2023 Active clotrimazole (LOTRIMIN) 1 % creamIndications:D ermatitis Seborrheic Apply 1 Application topically 2 (two) times a day. Apply to face. 30 g 11 10/11/2023 Active insulin glargine (Lantus Solostar U-100 Insulin) 100 unit/mL (3 mL) injectionIndicatio ns:Diabetes Mellitus Type 2 With Diabetic Neuropathy (HCC) Inject 70 Units under the skin 2 (two) times a day. Injected daily as directed. 126 mL 3 10/22/2023 Active triamcinolone (KENALOG) 0.1 % cream Apply 1 application topically 2 (two) times a day. Apply to affected area. 09/30/2021 4 Discontinu ed(Reorder ) gabapentin (NEURONTIN) 100 mg capsule Take 1 capsule (100 mg total) by mouth 3 (three) times a day. 270 capsule 3 08/17/2023 4 Discontinu ed(Reorder ) semaglutide (OZEMPIC) 2 mg/dose (8 mg/3 mL) injection Inject 2 mg under the skin every 7 (seven) days. 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 07/11 Diabetes Mellitus Type 2 Wit h Other Circulatory Complication 07/30/2019 Overview: Diagnosis Maintenance Updates Jul 2023 Venous Insufficiency Chronic Peripheral 07/30/19 Primary Central Sleep Apnea 06/25/2019 Apnea Sleep Obstructive 06/25/2019 Diabetes Mellitus Type 2 With Diabetic Neuropath y 05/23/2016 Overview: DM2 Neuropathy Uncontrolled Diagnosis Maintenance Updates Jul 2023 Dysfunction Erectile 04/12/2016 Hypothyroidism 05/05/2015 Hyperlipidemia 05/05/2015 Coronary Artery Disease With Stable Angina 10/30 Benign Prostatic Hyperplasia Without Obstruction 04/28/2014 Hypertensive Heart Without H eart Failure And Chronic Kidney Disease (CKD) Stage 3b Glomerular Filtration Rate (GFR) 30 To 44 04/28/2014 Morbid Obesity Body Mass Ind ex >= 35 with Comorbid Condition 04/28/2014 Resolved Problems Problem Noted Date Diagnosed Date Resolved Date Morbid Obesity Body Mass Ind ex 40.0-44.9 Adult 07/30/2019 07/30/2019 ST Elevation Myocardial Infa rction Involving Left Anterior Descending Coronary Artery 08/08/2018 07/30/2019 Diabetes Mellitus Type 2 Cir culatory Disease Uncontrolled 05/23/2016 10/08/2017 Overview: DM2 Circulatory Disease Uncontrolled Hypertension Essential Primary 05/05/2015 07/30/2019 Dyslipidemia 04/28/2014 07/21/2019 Primary Osteoarthritis Knee Right 04/28/2014 10/25/2021 Encounters Date Type Department Care Team Description 10/23/2023 Clinical Communication Department of Family [facility], [facility], [address] [phone] Soham James M.D., Ph.D. Form Review ([facility] diabetic footwear ) 10/18/2023 Clinical Communication Department of [facility], [facility], [address] [phone] Soham James M.D., Ph.D. 10/12/2023 Clinical Communication Department of [facility], [facility], [address] [phone] Soham James M.D., Ph.D. PT Referral 10/11/2023 6:00 PM CDT Office Visit Department of [facility], [address] [phone] Soham James M.D., Ph.D. Coronary Artery Disease With Stable Angina (HCC) (Primary Dx); Stroke Cerebrovascular Accident Personal History; Hypersomnia; Apnea Sleep Obstructive; Dermatitis Seborrheic; Wound Foot Open Subsequent Right; Diabetes Mellitus Type 2 With Diabetic Neuropathy (HCC); 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); Pain Neck; Pain Shoulder Right Discharge Disposition: Home or Self Care 10/10/2023 Orders Only [facility] PCP TH MNT Soham James M.D., Ph.D. Diabetes Mellitus Type 2 With Diabetic Neuropathy (HCC) 09/17/2023 Nurse Triage Department of Family Medicine, [facility], [place] [address] [place] [address] Tracey Thompson R.N. Med Question 09/17/2023 Refill Department of Family Medicine, [facility], [place] [address] [place] [address] Soham James M.D., Ph.D. Med Refill 09/15/2023 Refill Department of Family Medicine, [facility], [place] [address] [place] [address] Soham James M.D., Ph.D. Med Change Request 09/14/2023 Refill Department of Family Medicine, [facility], in [address] [phone] Soham James M.D., Ph.D. Med Refill 09/14/2023 Clinical Communication Department of Family [facility], [facility], in [address] [phone] Soham James M.D., Ph.D. 08/30/2023 Refill Department of Family [facility], [facility], in [address] [phone] Soham James M.D., Ph.D. Med Change Request 08/23/2023 Refill Department of Family Medicine, [facility], in [address] [place] [address] Soham James M.D., Ph.D. Med Change Request 08/23/2023 Refill Department of Family Medicine, [facility], in [address] [phone] Soham James M.D., Ph.D. Med Refill 08/22/2023 Clinical Communication Department of Family [facility], [facility], in [address] [place] [address] Soham James M.D., Ph.D. Form Review ([facility] Order [id number] ) 08/21/2023 Clinical Communication Department of Family [facility], [facility], in [address] [place] [address] Soham James M.D., Ph.D. Form Review ([facility] ( Order [id number]) 08/21/2023 Clinical Communication Department of Family [facility], [facility], [place] [address] [place] [address] Soham James M.D., Ph.D. Form Review ([facility] - order [id number]) 08/11/2023 Refill Department of Family Medicine, [facility], [place] [address] [place] [address] Soham James M.D., Ph.D. Med Refill 08/11/2023 Clinical Communication Department of Family [facility], [facility], in [address] [place] [address] Soham James M.D., Ph.D. Form Review ([facility] ( Order [id number]) 08/10/2023 Clinical Communication Department of Family Medicine, [facility], in [address] [place] [address] Soham James M.D., Ph.D. 08/03/2023 Clinical Communication Department of Family [facility], [facility], in [address] [place] [address] Soham James M.D., Ph.D. Forms ([facility] - order [id number]) 08/02/2023 Clinical Communication Department of Family Medicine, [facility], in [address] [phone] Soham James M.D., Ph.D. Form Review ([facility] ( Order [id number]) from Last 3 Months Immunizations Name Administration Dates Next Due H1N1 All Forms 08/10/2009 Influenza Split Preservative Free ID 05/15/2012 Influenza TIV (IM) 08/25/2006 Influenza high dose QV(65 years or older) (PF) 1 ,04/20/2020 Influenza, Quadrivalent, Adjuvanted, Preservativ e Free 05/12/2023 Influenza, Seasonal, Injectable 08/25/2006 PCV13 08/18/2008 PPSV23(Discontinued) 12/04/2018 SARS-COV-2 (COVID-19) - MODE RNA (12 YEARS AND OLDER) [id number] 05/12/2023 SARS-COV-2 (COVID-19) - MODERNA(Discontinued) SARS-COV-2 (COVID-19) - PFIZ ER (Discontinued)(12 years or older) 06/07/2021 SARS-COV-2 (COVID-19) - PFIZ ER BIVALENT TS(Discontinued)(12 YEARS OR OLDER) 05/09/2022 Tdap 02/23/2010 influenza high dose (65 years or older) (PF) 08/2017,04/30/2014 Family History Medical History Relation Name Comments [...] on file Sexual Orientation Not on file Last Filed Vital Signs Vital Sign Reading Time Taken Comments Blood Pressure 133/84 10/11/2023 5:58 PM CDT Pulse 75 10/11/2023 5:58 PM CDT Temperature 36.5 ??C (97.7 ??F) 10/11/2023 5:58 PM CD T Respiratory Rate 20 09/29/2020 1:05 PM CDT Oxygen Saturation 100% 10/11/2023 5:58 PM CDT Inhaled Oxygen Concentration - - Weight 123 kg (271 lb 9.7 oz) 10/11/2023 5:58 PM CDT Height 177 cm (5' 9.69) 05/31/2023 2:47 PM TELECINE OPERATOR Body Mass Index 39.32 05/31/2023 2:47 PM TELECINE OPERATOR Plan of Treatment Health Maintenance Due Date Last Done Comments Dilated Eye Exam 1945 Zoster Vaccines (1 of 2) 1997 Hepatitis B Vaccines (1 of 3 - Risk 3-dose series) 2007 DTaP,Tdap,and Td Vaccines (2 - Td or Tdap) 02/24/2020 02/23/2010 COVID-19 Vaccine (7 - 2022-2 4 season) 2023 05/12/2023, 05/09/2022, 01/30/2022, Additional history exists Hemoglobin A1C 01/10/2024 10/11/2023, 05/11, 05/09/2022, Additional history exists Depression Monitoring (PHQ-9) 02/10/2024 10/11/2023 Urine Albumin 05/31/2024 05/31/2023, 10/08, 09/15/2020, Additional history exists Visit: Medicare Annual Wellness 06/01/2024 Thyroid Stimulating Hormone (TSH) test for thyroid function 06/19/2024 06/19/2023, 10/25/2021, 09/15/2020, Additional history exists Creatinine Level (Kidney Fun ction Test) 07/04/2024 07/04/2023, 07/03/2023, 07/01/2023, Additional history exists Potassium Level 07/04/2024 07/04/2023, 06/10, 07/01/2023, Additional history exists Sodium Level 07/05/2024 07/05/2023, 06/10, 07/03/2023, Additional history exists Diabetic Office Visit with F oot Exam 10/10/2024 10/11/2023, 10/11/2023, 07/12/2023, Additional history exists Office Visit for Blood Press ure Check / Re-check 10/10/2024 10/11/2023 Hepatitis C Screening Completed 10/06/2017 Colonoscopy Discontinued 08/07/2018, 08/13/2007 Colorectal Cancer Screening Discontinued Pneumococcal vaccine (65+ years) Completed 12/05/19 19, 08/18/2008 Abdominal Aortic Aneurysm (A AA) Screen Discontinued 05/05/2020 Influenza Vaccine Completed 05/24/2023, , 05/09/2022, Additional history exists Fall Risk Screen (Annual) Completed 07/12/2023 Visit: Chronic Disease, age 18+ Discontinued 4, 07/12/2023 CT Colonography Discontinued Cologuard Discontinued FIT Discontinued Medical Devices Implanted Type Area Dampener Operator Device Identifier Shelf Expiration Date Model / Serial / Lot Knee Implant- 0 Implanted:08/14 by Amrik Falcon M.D. (Quantity not on file) Knee Implant Knee Procedures Procedure Name Priority Date/Time Associated Diagnosis Comments HEMOGLOBIN A1C, B Routine 10/11/2023 7:1 2 PM CDT Diabetes Mellitus Type 2 With Diabetic Neuropathy (HCC) EXTI SODIUM, S/P Routine 07/05/2023 9:05 AM TELECINE OPERATOR EXTI BASIC METABOLIC PANEL, S/P Routine 07/04/2023 11:49 PM TELECINE OPERATOR EXTI THYROID-STIMULATI NG HORMONE-SENSITIVE (S-TSH), S Routine 06/19/2023 5:47 AM TELECINE OPERATOR ALBUMIN, RANDOM, U Routine 05/31/2023 2:26 PM TELECINE OPERATOR Diabetes Mellitus Type 2 With Diabetic Neuropathy Hyperglycemic (HCC) US AORTA AAA SCREENING RAD - Routine (most inpatients and all outpatients) 05/05/2020 10:41 AM CDT Screening Abdominal Aortic Aneurysm HCV AB SCRN W/REFLEX TO HCV PCR, S Routine 10/06/2017 2:29 PM CDT Wellness Screening from Last 3 Months or Most Recently Relevant to Health Maintenance Results * (ABNORMAL) Hemoglobin A1c (10/11/2023 7:12 [...] James M.D., Ph.D. LAB BLOOD ADD-O N [facility] [address] [place] [address], [facility] CNFL [facility] [place] [address] * (ABNORMAL) Albumin, Random, Urine (05/31/2023 2:26 PM TELECINE OPERATOR) Microalbumin 53.8 mg/L 05/31/2023 2:48 PM TELECINE OPERATOR CNFL Creatinine 115 mg/dL 05/31/2023 2:48 PM TELECINE OPERATOR CNFL Albumin/Creatinin e Ratio 47(H) <17 mg/g 05/31/2023 2:48 PM TELECINE OPERATOR CNFL Urine (Urine, Midstream) 05/31/2023 2:26 PM TELECINE OPERATOR 05/31/2023 2:26 PM TELECINE OPERATOR Soham James M.D., Ph.D. LAB URINE ORDER [facility] [address] [place] [id number], [facility] in [address] [place] [address] * US Aorta AAA Screening (05/05/2020 10:41 AM CDT) Anatomical Region Laterality Modality Abdomen, Pelvis, Ultrasound RST LOS, Ultrasound ARZ LOS, Ultrasound FLA LOS N/A Ultrasound 05/05/2020 11:2 6 AM CDT Impressions 05/05/2020 11:27 AM CDT The abdominal aorta and common iliac arteries are normal in size and negative for aneurysm. Narrative 05/05/2020 11:27 AM CDT EXAM: ??US AORTA AAA SCREENING Exam performed with color and spectral Doppler analysis. COMPARISON: ??None FINDINGS: Aorta: AP - 2.0 cm Aorta: Trans - 2.0 cm Right OSWALD: AP - 1.3 cm Right OSWALD Trans - 1.3 cm Left OSWALD: AP - 1.3 cm Left OSWALD Trans - 1.2 cm Procedure Note Beni Paris M.D. - 05/05/2020 EXAM: US AORTA AAA SCREENING Exam performed with color and spectral Doppler analysis. COMPARISON: None FINDINGS: Aorta: AP - 2.0 cm Aorta: Trans - 2.0 cm Right OSWALD: AP - 1.3 cm Right OSWALD Trans - 1.3 cm Left OSWALD: AP - 1.3 cm Left OSWALD Trans - 1.2 cm IMPRESSION: The abdominal aorta and common iliac arteries are normal in size and negative for aneurysm. Soham James M.D., Ph.D. IMG US PROCEDUR ES * HCV AB Scrn w/Reflex to HCV PCR, S (10/06/2017 2:29 PM CDT) HCV Ab Screen, S Nonreactive Nonreactive 10/09/2017 10:[address] [facility] Blood 10/06/2017 2:29 PM CDT 10/06/2017 9:[address] [facility] - 10/09/2017 10:35 AM CDT Specimen Information: Specimen ID: [id number] Specimen Type: Blood Specimen Collection Start Date: 10/06/2017 ??2:29 PM Specimen Received Date: 10/06/2017 ??9:44 PM Specimen ID: [id number] Specimen Type: Blood Specimen Collection Start Date: 10/06/2017 ??2:29 PM Specimen Received Date: 10/06/2017 ??9:44 PM Soham James M.D., Ph.D. LAB MICROBIOLOG Y - BLOOD ORDERABLES [facility] [address] [place] [address], [facility] from Last 3 Months or Most Recently Relevant to Health Maintenance Care Teams Java Solutions Architect Relationship Specialty Start Date End Date Soham Jaems M.D., Ph.D. [id number] [place] [phone] PCP - General 12/22/16
--- OUTSIDE RECORDS SUMMARY | 2023-11-01 10:31 | XMS_ITS | Encounter Summary ---
Author Name Unknown Organization [facility] Address [address] [place] [address] Care Team Providers Care Assembly Person Name Role Phone Soham James M.D., Ph.D. Primary Care Provider Reason for Visit * Reason Comments Med Change Request Encounter Details Date Type Department Care Team (Late st Contact Info) Description 08/30/2023 Refill Department of Family Medicine, [facility], in [address] [phone] Soham James M.D., Ph.D. [address] [place] [phone] Med Change Request Social History Tobacco [...] Total Score: 3 05/31/20 23 3:22 PM PACKAGE LINER documented as of this encounter Care Teams Assembly Person Relationship Specialty Start Date End Date Soham James M.D., Ph.D. [address] [place] [phone] PCP - General 12/22/16 documented as of this encounter
--- OUTSIDE RECORDS SUMMARY | 2023-11-01 10:31 | XMS_ITS | Encounter Summary ---
Author Name Unknown Organization [facility] Address [address] [place] [address] Care Team Providers Care Lone Lead Lineman Name Role Phone Soham James M.D., Ph.D. Primary Care Provider Encounter Details Date Type Department Care Team (Late st Contact Info) Description 09/14/2023 Clinical Communication Department of Family Medicine, [facility], in [address] [phone] Soham James M.D., Ph.D. [address] [place] [phone] Social History Tobacco Use Types Packs/Day Years [...] encounter Miscellaneous Notes * Telephone Encounter - Shanae Martinez, L.P.N. - 09/15/2023 9:37 AM CST Information Discussed Let patient know requested prescription was sent in and PA was started for insurance. Transferred to scheduling for office visit to renew CPAP prescription. PLAN Disposition/Recommendation: patient transferred to the appointment desk Information/Education: patient/caller able to teach back Caller agreeable to plan of care: yes The following references were used: nursing clinical judgement IZER * Telephone Encounter - Marialuisa Benson - 09/14/2023 3:08 PM CST SEMN Nurse Message Reason for Communication: patient is calling and wondering why he is not gettinga response about his CPAP and why he is not getting his Ozempic. He was looking to get transferred directly to the dr Current Can Nursing/Provider leave a detailed message? no Did the patient refuse triage through Nurse line? (for symptom-based concerns): n/a Action Needed: call patient Name of Medication (if relevant): Ozempic Please send all scheduling replies to scheduling pool. IZER documented in this encounter Plan of Treatment Not on file documented as of this encounter Visit Diagnoses Diagnosis Diabetes Mellitus Type 2 With Diabetic Neuropathy (HCC) documented in this encounter Additional Health Concerns Assessment Noted Time PHQ-9 Depression Total Score: 3 05/31/20 23 3:22 PM UNITIZER documented as of this encounter Care Teams Lone Lead Lineman Relationship Specialty Start Date End Date Soham James M.D., Ph.D. [address] [place] [phone] PCP - General 12/22/16 documented as of this encounter
--- OUTSIDE RECORDS SUMMARY | 2023-11-01 10:31 | XMS_ITS | Encounter Summary ---
Author Name Unknown Organization [facility] Address [address] [place] [address] Care Team Providers Care Motion Picture Film Examiner Name Role Phone Soham James M.D., Ph.D. Primary Care Provider Reason for Visit * Reason Comments Med Refill Encounter Details Date Type Department Care Team (Late st Contact Info) Description 09/17/2023 Refill Department of Family Medicine, [facility], in [address] [phone] Soham James M.D., Ph.D. [address] [place] [phone] Med Refill Social History Tobacco Use Types [...] Total Score: 3 05/31/20 23 3:22 PM LABORATORY CUREMAN documented as of this encounter Care Teams Motion Picture Film Examiner Relationship Specialty Start Date End Date Soham James M.D., Ph.D. [address] [place] [phone] PCP - General 12/22/16 documented as of this encounter
--- OUTSIDE RECORDS SUMMARY | 2023-11-01 10:31 | XMS_ITS | Encounter Summary ---
Author Name Unknown Organization [facility] Address [address] [place] [address] Care Team Providers Care Founder And President Name Role Phone Soham James M.D., Ph.D. Primary Care Provider Reason for Visit * Reason Onset Date Comments Form Review 10/23/2023 [facility] diabetic footwear Encounter Details Date Type Department Care Team (Latest Contact Info) Description 10/23/2023 Clinical Communication Department of Family Medicine, [facility], in [address] [phone] Soham James M.D., Ph.D. [address] [place] [phone] Form Review ([facility] diabetic footwear ) Social History Tobacco Use Types Packs/Day Years [...] encounter Miscellaneous Notes * Telephone Encounter - Juliana Simon - 10/25/2023 9:03 AM CDT Form has been faxed back to the facility, copy sent to HIM. * Telephone Encounter - Josefina Mackey - 10/23/2023 7:35 PM CDT Form was emailed to Soham James M.D., Ph.D. for electronic review/signature. MACHINE GUIDE BASE WINDER: [facility] PHONE NUMBER: [phone] INFO REQUESTED: diabetic footwear INSTRUCTIONS: Fax information to [phone] documented in this encounter Plan of Treatment Not on file documented as of this encounter Visit Diagnoses Not on filedocumented in this encounter Additional Health Concerns Assessment Noted Time PHQ-9 Depression Total Score: 5 10/11/19 24 9:23 PM CDT documented as of this encounter Care Teams Founder And President Relationship Specialty Start Date End Date Soham James M.D., Ph.D. [address] [place] [phone] PCP - General 12/22/16 documented as of this encounter
--- OUTSIDE RECORDS SUMMARY | 2023-11-01 10:31 | XMS_ITS | Referral Summary ---
Author Name Unknown Organization [facility] Address [address] [place] [address] Care Team Providers Care Machine Cementer Name Role Phone Soham James M.D., Ph.D. Primary Care Provider Source Comments Patient records contain information from all sites at [facility]. For routine questions regarding patient records, call [phone] during business hours, M-F 8:00 AM - 5:00 PM Central Time. Record requests for emergency care only can be directed to [phone] at any time.[facility] Encounters Date Type Department Care Team Description 10/23/2023 Clinical Communication Department of Family Medicine, [facility], in [address] [phone] Soham James M.D., Ph.D. Form Review ([facility] diabetic footwear ) 10/18/2023 Clinical Communication Department of Family [facility], [facility], [address] [phone] Soham James M.D., Ph.D. 10/12/2023 Clinical Communication Department of Family Medicine, [facility], [address] [phone] Soham James M.D., Ph.D. PT Referral 10/11/2023 6:00 PM CDT Office Visit Department of Family Medicine, [facility], in [address] [phone] Soham James M.D., Ph.D. 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 Diabetes Mellitus Type 2 With Diabetic Neuropathy (HCC) 09/17/2023 Nurse Triage Department of Family Medicine, [facility], [address] [phone] Tracey Thompson R.N. Med Question 09/17/2023 Refill Department of Family [facility], [facility], [address] [phone] Soham James M.D., Ph.D. Med Refill 09/15/2023 Refill Department of Family Medicine, [facility], [address] [phone] Soham James M.D., Ph.D. Med Change Request 09/14/2023 Refill Department of Family Medicine, [facility], [address] [phone] Soham James M.D., Ph.D. Med Refill 09/14/2023 Clinical Communication Department of Family Medicine, [facility], [address] [phone] Soham James M.D., Ph.D. 08/30/2023 Refill Department of Family Medicine, [facility], [address] [phone] Soham James M.D., Ph.D. Med Change Request 08/23/2023 Refill Department of Family Medicine, [facility], in [address] [place] [phone] Soham James M.D., Ph.D. Med Change Request 08/23/2023 Refill Department of Family [facility], [facility], [place] [address] [place] [phone] Soham James M.D., Ph.D. Med Refill 08/22/2023 Clinical Communication Department of Family [facility], [facility], in [address] [place] [phone] Soham James M.D., Ph.D. Form Review ([facility] Order [id number] ) 08/21/2023 Clinical Communication Department of Family [facility], [facility], in [address] [place] [phone] Soham James M.D., Ph.D. Form Review ([facility] ( Order [id number]) 08/21/2023 Clinical Communication Department of Family [facility], in [address] [place] [address] Soham James M.D., Ph.D. Form Review ([facility] - order [id number]) 08/11/2023 Refill Department of Family Medicine, [facility], [place] [address] [place] [address] Soham James M.D., Ph.D. Med Refill 08/11/2023 Clinical Communication Department of Family [facility], [facility], [place] [address] [place] [address] Soham James M.D., Ph.D. Form Review ([facility] ( Order [id number]) 08/10/2023 Clinical Communication Department of Family Medicine, [facility], in [address] [phone] Soham James M.D., Ph.D. 08/03/[address] [facility], [facility], [address] [address] Soham James M.D., Ph.D. Forms ([email or web address] - order [id number]) 08/02/[address] [facility], [facility], in [address] [address] Soham James M.D., Ph.D. Form Review ([employer] ( Order [id number]) from Last 3 Months Allergies Active Allergy Reactions Criticality Noted Date Comments Esomeprazole Magnesium Nausea Only 11/12/2012 INCREASED ACID Penicillins Hives (Reselect Reaction) 04/15/2014 Xvqizpk-Ihy-Ced Reductase Inhibitors Myalgia 04/15/2014 Medications Medication Sig [...] as needed for chest pain. 25 tablet 07/12/2023 Active levothyroxine (SYNTHROID, LEVOTHROID) 100 mcg tablet take 1 tablet by mouth every day 90 tablet 07/20/2023 Active amLODIPine (NORVASC) 5 mg tabletIndications: [...] 07/21/2019 Primary Osteoarthritis Knee Right 04/28/2014 10/25/2021 Immunizations Name Administration Dates Next Due H1N1 All Forms 08/10/2009 Influenza Split Preservative Free ID 05/15/2012 Influenza TIV (IM) 08/25/2006 Influenza high dose QV(65 years or older) (PF) 1 ,04/20/2020 Influenza, Quadrivalent, Adjuvanted, Preservativ e Free 05/12/2023 Influenza, Seasonal, Injectable 08/25/2006 PCV13 08/18/2008 PPSV23(Discontinued) 12/04/2018 SARS-COV-2 (COVID-19) - MODE RNA (12 YEARS AND OLDER) [id number] 05/12/2023 SARS-COV-2 (COVID-19) - MODERNA(Discontinued) SARS-COV-2 (COVID-19) - PFIZ ER (Discontinued)(12 years or older) 06/07/2021 SARS-COV-2 (COVID-19) - PFIZ ER BIVALENT TS(Discontinued)(12 YEARS OR OLDER) 05/09/2022 Tdap 02/23/2010 influenza high dose (65 years or older) (PF) 08/2017,04/30/2014 Social History Tobacco Use Types Packs/Day Years [...] 177 cm (5' 9.69) 05/31/2023 2:47 PM DESIGNER WRITER Body Mass Index 39.32 05/31/2023 2:47 PM DESIGNER WRITER Plan of Treatment Not on file Medical Devices Implanted Type Area Automotive Design Layout Drafter Device Identifier Shelf Expiration Date Model / Serial / Lot Knee Implant- 0 Implanted:08/14 by Amrik Falcon M.D. (Quantity not on file) Knee Implant Knee Procedures Procedure Name Priority Date/Time Associated Diagnosis Comments HEMOGLOBIN A1C, B Routine 10/11/2023 7:1 2 PM CDT Diabetes Mellitus Type 2 With Diabetic Neuropathy (HCC) EXTI SODIUM, S/P Routine 07/05/2023 9:05 AM DESIGNER WRITER EXTI BASIC METABOLIC PANEL, S/P Routine 07/04/2023 11:49 PM DESIGNER WRITER EXTI THYROID-STIMULATI NG HORMONE-SENSITIVE (S-TSH), S Routine 06/19/2023 5:47 AM DESIGNER WRITER ALBUMIN, RANDOM, U Routine 05/31/2023 2:26 PM DESIGNER WRITER Diabetes Mellitus Type 2 With Diabetic Neuropathy [...] James M.D., Ph.D. LAB BLOOD ADD-O N Performing Organization Address City/[facility]/ZIP Co de Phone Number [facility] [address] [place] [address], [place] [phone] * (ABNORMAL) Albumin, Random, Urine (05/31/2023 2:26 PM DESIGNER WRITER) Microalbumin 53.8 mg/L 05/31/2023 2:48 PM DESIGNER WRITER CNFL Creatinine 115 mg/dL 05/31/2023 2:48 PM DESIGNER WRITER CNFL Albumin/Creatinin e Ratio 47(H) <17 mg/g 05/31/2023 2:48 PM DESIGNER WRITER CNFL Urine (Urine, Midstream) 05/31/2023 2:26 PM DESIGNER WRITER 05/31/2023 2:26 PM DESIGNER WRITER Soham James M.D., Ph.D. LAB URINE ORDER SREEKANTH Performing Organization Address City/[facility]/ZIP Co de Phone Number [facility] [address] [place] [phone], [place] [address] * US Aorta AAA Screening (05/05/2020 10:41 [...] S Nonreactive Nonreactive 10/09/2017 10:35 AM CDT [facility] Blood 10/06/2017 2:29 PM CDT 10/06/2017 9:44 PM CDT Narrative [facility] - 10/09/2017 10:35 AM CDT Specimen Information: Specimen ID: [id number] Specimen Type: Blood Specimen Collection Start Date: 10/06/2017 ??2:29 PM Specimen Received Date: 10/06/2017 ??9:44 PM Specimen ID: [id number] Specimen Type: Blood Specimen Collection Start Date: 10/06/2017 ??2:29 PM Specimen Received Date: 10/06/2017 ??9:44 PM Soham James M.D., Ph.D. LAB MICROBIOLOG Y - BLOOD ORDERABLES [facility] [address] [place] [phone], [facility] from Last 3 Months or Most Recently Relevant to Health Maintenance Care Teams Machine Cementer Relationship Specialty Start Date End Date Soham James M.D., Ph.D. [address] [place] [phone] PCP - General 12/22/16
--- OUTSIDE RECORDS SUMMARY | 2023-11-01 10:31 | XMS_ITS | Encounter Summary ---
Author Name Unknown Organization [facility] Address [address] [place] [address] Care Team Providers Care Floor Helper Name Role Phone Soham James M.D., Ph.D. Primary Care Provider Encounter Details Date Type Department Care Team (Late st Contact Info) Description 10/10/2023 Orders Only [facility] PCP [facility] Soham James M.D., Ph.D. [address] [place] [phone] Diabetes Mellitus Type 2 With Diabetic Neuropathy (HCC) Social History Tobacco Use Types Packs/Day Years [...] on file documented as of this encounter Results * (ABNORMAL) Hemoglobin A1c [...] James M.D., Ph.D. LAB BLOOD ADD-O N [facility] [address] [place] [phone], [facility] [address] [address] documented in this encounter Visit Diagnoses Diagnosis Diabetes Mellitus Type 2 With Diabetic Neuropathy (HCC) documented in this encounter Additional Health Concerns Assessment Noted Time PHQ-9 Depression Total Score: 3 05/31/20 23 3:22 PM ASSISTANT GROCERY STORE MANAGER documented as of this encounter Care Teams Floor Helper Relationship Specialty Start Date End Date Soham James M.D., Ph.D. [address] [place] [phone] PCP - General 12/22/16 documented as of this encounter
--- OUTSIDE RECORDS SUMMARY | 2023-11-01 10:31 | XMS_ITS | Encounter Summary ---
Author Name Unknown Organization [facility] Address [address] [place] [address] Care Team Providers Care Human Resources Designate Name Role Phone Soham James M.D., Ph.D. Primary Care Provider Reason for Visit * Reason Onset Date Comments Form Review 08/11/2023 [facility] ( Order [id number] Encounter Details Date Type Department Care Team (Latest Contact Info) Description 08/11/2023 Clinical Communication Department of Family Medicine, [facility], in [address] [phone] Soham James M.D., Ph.D. [address] [place] [phone] Form Review ([facility] ( Order [id number]) Social History Tobacco Use Types Packs/Day Years [...] encounter Miscellaneous Notes * Telephone Encounter - Jacki Sparrow - 08/11/2023 12:35 PM CST Received back completed form. Form faxed back to the listed facility. Scanned into [facility] SUPPORT EQUIPMENT MECHANIC * Telephone Encounter - Jacki Sparrow - 08/11/2023 9:38 AM CST Form was emailed to Soham James MD for electronic review/signature. CONTACT WORKER: [facility] PHONE NUMBER: [phone] INFO REQUESTED: Order [id number] INSTRUCTIONS: Fax information to [phone] [place] SUPPORT EQUIPMENT MECHANIC documented in this encounter Plan of Treatment Not on file documented as of this encounter Visit Diagnoses Not on filedocumented in this encounter Additional Health Concerns Assessment Noted Time PHQ-9 Depression Total Score: 3 05/31/20 23 3:22 PM GROUND SUPPORT EQUIPMENT MECHANIC documented as of this encounter Care Teams Human Resources Designate Relationship Specialty Start Date End Date Soham James M.D., Ph.D. [address] [place] [phone] PCP - General 12/22/16 documented as of this encounter
--- OUTSIDE RECORDS SUMMARY | 2023-11-01 10:31 | XMS_ITS | Encounter Summary ---
Author Name Unknown Organization [facility] Address [address] [place] [address] Care Team Providers Care Welt Rander Name Role Phone Soham James M.D., Ph.D. Primary Care Provider Reason for Visit * Reason Onset Date Comments Form Review 08/21/2023 [facility] kay [id number] Encounter Details Date Type Department Care Team (Latest Contact Info) Description 08/21/2023 Clinical Communication Department of Family Medicine, [facility], in [address] [phone] Soham James M.D., Ph.D. [address] [place] [phone] Form Review ([facility] - order [id number]) Social History Tobacco Use Types Packs/Day Years [...] encounter Miscellaneous Notes * Telephone Encounter - Ivonne Rivera - 08/21/2023 2:47 PM CST Received back completed form. Form faxed back to the listed facility. Scanned into [facility] LAY OUT WORKER * Telephone Encounter - Ivonne Rivera - 08/21/2023 12:40 PM CST Form was emailed to Dr James for electronic review/signature. CARTOGRAPHIC DESIGNER: [facility] PHONE NUMBER: [phone] INFO REQUESTED: order [id number] INSTRUCTIONS: Fax information to [phone] LAY OUT WORKER documented in this encounter Plan of Treatment Not on file documented as of this encounter Visit Diagnoses Not on filedocumented in this encounter Additional Health Concerns Assessment Noted Time PHQ-9 Depression Total Score: 3 05/31/20 23 3:22 PM DIE LAY OUT WORKER documented as of this encounter Care Teams Welt Rander Relationship Specialty Start Date End Date Soham James M.D., Ph.D. [address] [place] [phone] PCP - General 12/22/16 documented as of this encounter
--- OUTSIDE RECORDS SUMMARY | 2023-11-01 10:31 | XMS_ITS ---
Author Name Unknown Organization [facility] Address [address] [place] [address] Care Team Providers Care Group Leader Semiconductor Testing Name Role Phone Unavailable Unavailable Unavailable Surgery Details Not on file Complications Check Surgery Details section. Procedure Estimated Blood Loss Check Surgery Details section. Procedure Findings Check Surgery Details section. Procedure Specimens Taken Check Surgery Details section.
--- OUTSIDE RECORDS SUMMARY | 2023-11-01 10:31 | XMS_ITS | Encounter Summary ---
Author Name Unknown Organization [facility] Address [address] [place] [address] Care Team Providers Care Numerical Control Operator Name Role Phone Soham James M.D., Ph.D. Primary Care Provider Reason for Visit * Reason Comments Med Refill Encounter Details Date Type Department Care Team (Late st Contact Info) Description 08/23/2023 Refill Department of Family Medicine, [facility], in [address] [phone] Soham James M.D., Ph.D. [address] [place] [phone] Med Refill Social History Tobacco Use [...] encounter Miscellaneous Notes * Telephone Encounter - Beatriz Hackett - 08/23/2023 3:13 PM CST Ozempic 0.25 mg is pended. Historical med list shows the prescription has . Please renew or reject as appropriate. Thank you. SIZER documented in this encounter Plan of Treatment Not on file documented as of this encounter Visit Diagnoses Diagnosis Diabetes Mellitus Type 2 With Diabetic Neuropathy (HCC) documented in this encounter Additional Health Concerns Assessment Noted Time PHQ-9 Depression Total Score: 3 05/31/20 23 3:22 PM WEB SIZER documented as of this encounter Care Teams Numerical Control Operator Relationship Specialty Start Date End Date Soham James M.D., Ph.D. [address] [place] [phone] PCP - General 12/22/16 documented as of this encounter
--- OUTSIDE RECORDS SUMMARY | 2023-11-01 10:31 | XMS_ITS | Encounter Summary ---
Author Name Unknown Organization [facility] Address [address] [place] [address] Care Team Providers Care Corporate Bond Trader Name Role Phone Soham James M.D., Ph.D. Primary Care Provider Reason for Visit * Reason Onset Date Comments Form Review 08/22/2023 [facility] Order [id number] Encounter Details Date Type Department Care Team (Latest Contact Info) Description 08/22/2023 Clinical Communication Department of Family Medicine, [facility], in [address] [phone] Soham James M.D., Ph.D. [address] [place] [phone] Form Review ([facility] Order [id number] ) Social History Tobacco Use Types Packs/Day [...] encounter Miscellaneous Notes * Telephone Encounter - Afia Engcas Crow - 08/22/2023 12:11 PM CST Form faxed back to facility and sent for scanning. HOLOGY TEACHER * Telephone Encounter - Tracey Eng - 08/22/2023 11:26 AM CST Form was emailed to Dr. James for electronic review/signature. MANAGER INTERVENTIONAL: [facility] PHONE NUMBER: [phone] INFO REQUESTED: Order [id number] INSTRUCTIONS: Fax information to [phone] HOLOGY TEACHER documented in this encounter Plan of Treatment Not on file documented as of this encounter Visit Diagnoses Not on filedocumented in this encounter Additional Health Concerns Assessment Noted Time PHQ-9 Depression Total Score: 3 05/31/20 23 3:22 PM MORPHOLOGY TEACHER documented as of this encounter Care Teams Corporate Bond Trader Relationship Specialty Start Date End Date Soham James M.D., Ph.D. [address] [place] [phone] PCP - General 12/22/16 documented as of this encounter
--- OUTSIDE RECORDS SUMMARY | 2023-11-01 10:31 | XMS_ITS | Encounter Summary ---
Author Name Unknown Organization [facility] Address [address] [place] [address] Care Team Providers Care Coating Mixer Supervisor Name Role Phone Soham James M.D., Ph.D. Primary Care Provider Reason for Visit * Reason Onset Date Comments Form Review 08/21/2023 [facility] ( Order [id number] Encounter Details Date Type Department Care Team (Latest Contact Info) Description 08/21/2023 Clinical Communication Department of Family Medicine, [facility], in [address] [phone] Soham James M.D., Ph.D. [address] [place] [phone] Form Review ([facility] ( Order [id number]) Social History Tobacco Use Types Packs/Day Years [...] * Telephone Encounter - Jacki Sparrow - 08/21/2023 4:51 PM CST Received back completed form. Form faxed back to the listed facility. Scanned into [facility] RAL RESOURCE MANAGER * Telephone Encounter - Jacki Sparrow - 08/21/2023 3:36 PM CST Form was emailed to Soham James MD for electronic review/signature. SHELL ASSEMBLER: [facility] PHONE NUMBER: [phone] INFO REQUESTED: Order [id number] INSTRUCTIONS: Fax information to [phone] RAL RESOURCE MANAGER documented in this encounter Plan of Treatment Not on file documented as of this encounter Visit Diagnoses Not on filedocumented in this encounter Additional Health Concerns Assessment Noted Time PHQ-9 Depression Total Score: 3 05/31/20 23 3:22 PM NATURAL RESOURCE MANAGER documented as of this encounter Care Teams Coating Mixer Supervisor Relationship Specialty Start Date End Date Shoam James M.D., Ph.D. [address] [place] [phone] PCP - General 12/22/16 documented as of this encounter
--- OUTSIDE RECORDS SUMMARY | 2023-11-01 10:31 | XMS_ITS | Encounter Summary ---
Author Name Unknown Organization [facility] Address [address] [place] [address] Care Team Providers Care Road Manager Name Role Phone Soham James M.D., Ph.D. Primary Care Provider Reason for Referral * Medication Prior Authorization - Closed Specialty Diagnoses / Procedures Referred By Contac t Referred To Contact Diagnoses Diabetes Mellitus Type 2 With Diabetic Neuropathy (HCC) Soham James M.D., Ph.D. [address] [place] [phone] Referral ID Status Reason Start Date Expiration Date Visits Re quested Visits Authorized [id number] Closed 1 1 Encounter Details Date Type Department Care Team (Late st Contact Info) Description 10/18/2023 Clinical Communication Department of Family Medicine, [facility], in [address] [phone] Soham James M.D., Ph.D. [address] [place] [phone] Social History Tobacco Use Types Packs/Day [...] encounter Miscellaneous Notes * Telephone Encounter - Marialuisa Benson - 10/18/2023 1:06 PM CDT SEM[facility] Nurse Message Reason for Communication: pharmacist is calling and wondering if she can talk tosomeone about the issue that they are having with this prescription. She is trying to get it resolved so they can fill it for the patient. Current Can Nursing/Provider leave a detailed message? no Did the patient refuse triage through Nurse line? (for symptom-based concerns): n/a Action Needed: call pharmacy Name of Medication (if relevant): Ziyad Please send all scheduling replies to scheduling pool. documented in this encounter Plan of Treatment Not on file documented as of this encounter Visit Diagnoses Diagnosis Diabetes Mellitus Type 2 With Diabetic Neuropathy (HCC)- Primary documented in this encounter Additional Health Concerns Assessment Noted Time PHQ-9 Depression Total Score: 5 10/11/19 24 9:23 PM CDT documented as of this encounter Care Teams Road Manager Relationship Specialty Start Date End Date Soham James M.D., Ph.D. [address] [place] [phone] PCP - General 12/22/16 documented as of this encounter
--- OUTSIDE RECORDS SUMMARY | 2023-11-01 10:31 | XMS_ITS | Encounter Summary ---
Author Name Unknown Organization [facility] Address [address] [place] [address] Care Team Providers Care Scrap Breaker Name Role Phone Soham James M.D., Ph.D. Primary Care Provider Reason for Visit * Reason Onset Date Comments PT Referral 10/12/2023 Encounter Details Date Type Department Care Team (Late st Contact Info) Description 10/12/2023 Clinical Communication Department of Family Medicine, [facility], in [address] [phone] Soham James M.D., Ph.D. [address] [place] [phone] PT Referral Social History Tobacco Use Types Packs/Day Years [...] documented as of this encounter Care Teams Scrap Breaker Relationship Specialty Start Date End Date Soham James M.D., Ph.D. [address] [phone] PCP - General 12/22/16 documented as of this encounter
--- OUTSIDE RECORDS SUMMARY | 2023-11-01 10:32 | XMS_ITS | Encounter Summary ---
Author Name Unknown Organization [facility] Address [address] [place] [address] Care Team Providers Care Shovel Engineer Name Role Phone Soham James M.D., Ph.D. Primary Care Provider Reason for Visit * Reason Onset Date Comments Forms 08/03/2023 [employer] [id number] Encounter Details Date Type Department Care Team (Latest Contact Info) Description 08/03/2023 Clinical Communication Department of Family Medicine, [facility], in [address] [phone] Soham James M.D., Ph.D. [address] [place] [phone] Forms ([employer] [id number]) Social History Tobacco Use Types Packs/Day Years [...] * Telephone Encounter - Ivonne Rivera - 08/03/2023 12:54 PM CST Received back completed form. Form faxed back to the listed facility. Scanned into [facility] PRESS SETTER * Telephone Encounter - Ivonne Rivera - 08/03/2023 12:39 PM CST Form was emailed to DR James for electronic review/signature. SEMICONDUCTOR EQUIPMENT TECHNICIAN: [facility] PHONE NUMBER: [phone] INFO REQUESTED: order [id number] INSTRUCTIONS: Fax information to [phone] PRESS SETTER documented in this encounter Plan of Treatment Not on file documented as of this encounter Visit Diagnoses Not on filedocumented in this encounter Additional Health Concerns Assessment Noted Time PHQ-9 Depression Total Score: 3 05/31/20 23 3:22 PM KICK PRESS SETTER documented as of this encounter Care Teams Shovel Engineer Relationship Specialty Start Date End Date Soham James M.D., Ph.D. [address] [place] [phone] PCP - General 12/22/16 documented as of this encounter
--- OUTSIDE RECORDS SUMMARY | 2023-11-01 10:32 | XMS_ITS | Encounter Summary ---
Author Name Unknown Organization [facility] Address [address] [place] [address] Care Team Providers Care Cooker Mechanic Name Role Phone Soham James M.D., Ph.D. Primary Care Provider Reason for Visit * Reason Comments Med Refill Encounter Details Date Type Department Care Team (Late st Contact Info) Description 07/27/2023 Refill Department of Family Medicine, [facility], in [address] [phone] Soham James M.D., Ph.D. [address] [place] [phone] Med Refill Social History Tobacco Use Types [...] Total Score: 3 05/31/20 23 3:22 PM HYDROTHERAPIST documented as of this encounter Care Teams Cooker Mechanic Relationship Specialty Start Date End Date Soham James M.D., Ph.D. [address] [phone] PCP - General 12/22/16 documented as of this encounter
--- OUTSIDE RECORDS SUMMARY | 2023-11-01 10:32 | XMS_ITS | Encounter Summary ---
Author Name Unknown Organization [facility] Address [address] [place] [address] Care Team Providers Care Auto Damage Insurance Appraiser Name Role Phone Soham James M.D., Ph.D. Primary Care Provider Reason for Visit * Reason Onset Date Comments Form Review 07/26/2023 [facility] - [id number], [id number], [id number] Encounter Details Date Type Department Care Team (Latest Contact Info) Description 07/26/2023 Clinical Communication Department of Family Medicine, [facility], in [address] [phone] Soham James M.D., Ph.D. [address] [place] [phone] Form Review (Charles - [id number], [id number], [id number]) Social History Tobacco Use Types Packs/Day Years [...] encounter Miscellaneous Notes * Telephone Encounter - Catrachita Elder - 07/26/2023 11:52 AM REVENUE STAMP CUTTER Faxed back. Sent to be scanned into patient chart. Notation for electronic signature, date, full name, and credentials added. NUE STAMP CUTTER * Telephone Encounter - Catrachita Elder - 07/26/2023 10:51 AM REVENUE STAMP CUTTER Form was emailed to Dr James for electronic review/signature. AP OPERATOR: [employer] PHONE NUMBER: [phone] INFO REQUESTED: [id number], [id number], [id number] INSTRUCTIONS: Fax information to [phone] NUE STAMP CUTTER documented in this encounter Plan of Treatment Not on file documented as of this encounter Visit Diagnoses Not on filedocumented in this encounter Additional Health Concerns Assessment Noted Time PHQ-9 Depression Total Score: 3 05/31/20 23 3:22 PM REVENUE STAMP CUTTER documented as of this encounter Care Teams Auto Damage Insurance Appraiser Relationship Specialty Start Date End Date Soham James M.D., Ph.D. [address] [place] [phone] PCP - General 12/22/16 documented as of this encounter
--- OUTSIDE RECORDS SUMMARY | 2023-11-01 10:32 | XMS_ITS | Encounter Summary ---
Author Name Unknown Organization [facility] Address [address] [place] [address] Care Team Providers Care High School Counselor Name Role Phone Soham James M.D., Ph.D. Primary Care Provider Reason for Visit * Reason Onset Date Comments Form Review 07/28/2023 Charles [id number] Encounter Details Date Type Department Care Team (Latest Contact Info) Description 07/28/2023 Clinical Communication Department of Family Medicine, [facility], in [address] [phone] Soham James M.D., Ph.D. [address] [place] [phone] Form Review (Charles [id number]) Social History Tobacco Use Types Packs/Day Years [...] encounter Miscellaneous Notes * Telephone Encounter - Shaila Blanc - 07/28/2023 2:24 PM CST Form completed by the provider. Faxed back and sent to scanning. PLAYER * Telephone Encounter - Shaila Blanc - 07/28/2023 12:42 PM CST Form emailed to Dr. James for review/signature ALLERGIST/PEDIATRIC PULMONOLOGIST: [employer] PHONE NUMBER: [phone] INFO REQUESTED: [id number] INSTRUCTIONS: Fax to [phone] PLAYER documented in this encounter Plan of Treatment Not on file documented as of this encounter Visit Diagnoses Not on filedocumented in this encounter Additional Health Concerns Assessment Noted Time PHQ-9 Depression Total Score: 3 05/31/20 23 3:22 PM NBA PLAYER documented as of this encounter Care Teams High School Counselor Relationship Specialty Start Date End Date Soham James M.D., Ph.D. [address] [place] [phone] PCP - General 12/22/16 documented as of this encounter
--- OUTSIDE RECORDS SUMMARY | 2023-11-01 10:32 | XMS_ITS | Encounter Summary ---
Author Name Unknown Organization [facility] Address [address] [place] [address] Care Team Providers Care Distance Learning Unit Leader Name Role Phone Soham James M.D., Ph.D. Primary Care Provider Encounter Details Date Type Department Care Team (Late st Contact Info) Description 08/10/2023 Clinical Communication Department of Family Medicine, [facility], in [address] [phone] Soham James M.D., Ph.D. [address] [place] [phone] Social History Tobacco Use Types Packs/Day [...] encounter Miscellaneous Notes * Telephone Encounter - Nayla Childs - 08/10/2023 6:46 AM CST Images from the original note were not included. Nurse review: Pharmacy Communication. Primary Provider: Soham James M.D., Ph.D. LIANDEER LOOPER documented in this encounter Plan of Treatment Not on file documented as of this encounter Visit Diagnoses Not on filedocumented in this encounter Additional Health Concerns Assessment Noted Time PHQ-9 Depression Total Score: 3 05/31/20 23 3:22 PM BRILLIANDEER LOOPER documented as of this encounter Care Teams Distance Learning Unit Leader Relationship Specialty Start Date End Date Soham James M.D., Ph.D. [address] [place] [phone] PCP - General 12/22/16 documented as of this encounter
--- OUTSIDE RECORDS SUMMARY | 2023-11-01 10:32 | XMS_ITS | Encounter Summary ---
Author Name Unknown Organization [facility] Address [address] [place] [address] Care Team Providers Care Self Rising Flour Mixer Name Role Phone Soham James M.D., Ph.D. Primary Care Provider Reason for Visit * Reason Onset Date Comments Form Review 08/02/2023 [facility] ( Order [id number] Encounter Details Date Type Department Care Team (Latest Contact Info) Description 08/02/2023 Clinical Communication Department of Family Medicine, [facility], in [address] [phone] Soham James M.D., Ph.D. [address] [place] [phone] Form Review ([facility] ( Order [id number]) Social History Tobacco Use Types Packs/Day Years [...] * Telephone Encounter - Jacki Sparrow - 08/02/2023 2:31 PM CST Received back completed form. Form faxed back to the listed facility. Scanned into [facility] ENGINEERING TECHNICIAN * Telephone Encounter - Jacki Sparrow - 08/02/2023 12:44 PM CST Form was emailed to Soham James MD for electronic review/signature. MALLET AND DIE CUTTER: [facility] PHONE NUMBER: [phone] INFO REQUESTED: Order [id number] INSTRUCTIONS: Fax information to [phone] ENGINEERING TECHNICIAN documented in this encounter Plan of Treatment Not on file documented as of this encounter Visit Diagnoses Not on filedocumented in this encounter Additional Health Concerns Assessment Noted Time PHQ-9 Depression Total Score: 3 05/31/20 23 3:22 PM TEST ENGINEERING TECHNICIAN documented as of this encounter Care Teams Self Rising Flour Mixer Relationship Specialty Start Date End Date Soham James M.D., Ph.D. [address] [place] [phone] PCP - General 12/22/16 documented as of this encounter
--- OUTSIDE RECORDS SUMMARY | 2023-11-01 10:32 | XMS_ITS | Encounter Summary ---
Author Name Unknown Organization [facility] Address [address] [place] [address] Care Team Providers Care Zigzag Stitcher Name Role Phone Soham James M.D., Ph.D. Primary Care Provider Reason for Visit * Reason Onset Date Comments Form [id number], [id number], [id number] Encounter Details Date Type Department Care Team (Latest Contact Info) Description 07/24/2023 Clinical Communication Department of Family Medicine, [facility], in [address] [phone] Soham James M.D., Ph.D. [address] [place] [phone] Form Review ([facility] (orders [id number], [id number], [id number]) Social History Tobacco Use Types Packs/Day Years [...] encounter Miscellaneous Notes * Telephone Encounter - Tania Dash C.PhJoshT. - 07/24/2023 11:27 AM WORKSHOP MANAGER Faxed back. Uploaded to Sweep Folder to be scanned into patient's chart. SHOP MANAGER * Telephone Encounter - Tania Dash C.PhSally. - 07/24/2023 10:10 AM WORKSHOP MANAGER Form was emailed to Dr. James for electronic review/signature. BISTRO ATTENDANT: [employer] PHONE NUMBER: [phone] INFO REQUESTED: orders [id number], [id number], [id number] INSTRUCTIONS: Fax information to [phone] SHOP MANAGER documented in this encounter Plan of Treatment Not on file documented as of this encounter Visit Diagnoses Not on filedocumented in this encounter Additional Health Concerns Assessment Noted Time PHQ-9 Depression Total Score: 3 05/31/20 23 3:22 PM WORKSHOP MANAGER documented as of this encounter Care Teams Zigzag Stitcher Relationship Specialty Start Date End Date Soham James M.D., Ph.D. [address] [place] [phone] PCP - General 12/22/16 documented as of this encounter
--- OUTSIDE RECORDS SUMMARY | 2023-11-01 10:32 | XMS_ITS | Clinical Summary ---
Author Name Unknown Organization [facility] Address [address] [place] [address] Care Team Providers Care Assistant Public Defender Name Role Phone Soham James MD Primary Care Provider [phone] Allergies Active Allergy Reactions Criticality Noted Date Comments Esomeprazole Magnesium GI Disturbance 3 INCREASED ACID Penicillins Hives 08/03/2012 Medications Medication Sig Dispensed Refills Start Date End Date Status insulin lispro (HUMALOG) 100 UNIT/ML injectionIndication s:Type 1 Diabetes Mellitus Inject Subcutaneous 3 times daily (before meals). Per sliding scale Indications: Insulin-Dependent Diabetes Active insulin glargine (LANTUS) 100 UNIT/ML injectionIndication s:Type 1 Diabetes Mellitus Inject 40 Units Subcutaneous At Bedtime. Indications: Insulin-Dependent Diabetes Active Celecoxib (CELEBREX PO) Take 400 mg by mouth daily. Active Levothyroxine Sodium (LEVOXYL PO) Take 100 mcg by mouth daily. Active SIMVASTATIN PO Take 80 mg by mouth At Bedtime. Active OMEPRAZOLE PO Take 20 mg by mouth every morning. Active triamterene-hydroch lorothiazide (MAXZIDE-25) 37.5-25 MG per tablet Take 1 tablet by mouth daily. Active LISINOPRIL PO Take 10 mg by mouth daily. Active ASPIRIN PO Take 81 mg by mouth daily. Active amLODIPine (NORVASC) 10 MG tablet Take 10 mg by mouth daily Active bisoprolol (ZEBETA) 5 MG tablet Take 5 mg by mouth daily Active furosemide (LASIX) 20 MG tablet Take 20 mg by mouth daily Active metFORMIN (GLUCOPHAGE) 500 MG tablet Take 500 mg by mouth 2 times daily (with meals) Active zolpidem (AMBIEN) 10 MG tablet Take 10 mg by mouth nightly as needed for sleep Active clopidogrel (PLAVIX) 75 MG tabletIndications:H /O heart artery stent Take 1 tablet (75 mg) by mouth daily 08/10/2018 Active Social History Tobacco Use Types Packs/Day Years Used Date Smoking Tobacco: Former Cigars Smokeless Tobacco: Never Alcohol Use Standard Drinks/Week Comments Yes 0 (1 standard drink = 0.6 oz pur e alcohol) 2 a day Adolescent Education Answer Date Record ed Getting School Help Needed Not on file 06/05 Sex and Gender Information Value Date Recorded Sex Assigned at Not on file Gender Identity Not on file Sexual Orientation Not on file Last Filed Vital Signs Vital Sign Reading Time Taken Comments Blood Pressure 118/67 08/07/2018 9:20 AM ADULT SERVICES LIBRARIAN Pulse 64 08/07/2018 9:20 AM ADULT SERVICES LIBRARIAN Temperature 36.6 ??C (97.9 ??F) 08/21/2012 8:20 AM CS T Respiratory Rate 20 08/07/2018 9:30 AM ADULT SERVICES LIBRARIAN Oxygen Saturation 91% 08/07/2018 9:27 AM ADULT SERVICES LIBRARIAN Inhaled Oxygen Concentration - - Weight 124.7 kg (275 lb) 08/07/2018 7:52 AM ADULT SERVICES LIBRARIAN Height 177.8 cm (5' 10) 08/07/2018 7:52 AM ADULT SERVICES LIBRARIAN Body Mass Index 39.46 08/07/2018 7:52 AM ADULT SERVICES LIBRARIAN Plan of Treatment Health Maintenance Due Date Last Done Comments ADVANCE CARE PLANNING 1945 ANNUAL REVIEW OF HM ORDERS 1945 LIPID 1945 TSH W/FREE T4 REFLEX 1945 HEPATITIS C SCREENING 1965 LUNG CANCER SCREENING 1997 ZOSTER IMMUNIZATION (1 of 2) 1997 RSV VACCINE ( & 60+) (1 - 1-dose 60+ series) 2007 FALL RISK ASSESSMENT 2012 MEDICARE ANNUAL WELLNESS VISIT 2012 GLUCOSE 08/21/2015 08/21/2012, 07/11, 08/07/2012, Additional history exists DTAP/TDAP/TD IMMUNIZATION (2 - Td or Tdap) 02/24/2020 02/23/2010 PHQ-2 (once per calendar year) 2023 COVID-19 Vaccine (2022- season) 2023 05/12/2023, 05/09/2022, 01/29/2022, Additional history exists COLONOSCOPY Discontinued 08/07/2018, 06/19/2008 COLORECTAL CANCER SCREENING Discontinued Pneumococcal Vaccine: 65+ Years Completed 12/04/2018, 08/18/2008 INFLUENZA VACCINE Completed 05/12/2023, , 04/20/2020, Additional history exists CT COLONOGRAPHY Discontinued FIT Discontinued FLEX SIG Discontinued HPV IMMUNIZATION Aged Out No longer e ligible based on patient's age to complete this topic IPV IMMUNIZATION Aged Out No longer e ligible based on patient's age to complete this topic MENINGITIS IMMUNIZATION Aged Out No l onger eligible based on patient's age to complete this topic RSV MONOCLONAL ANTIBODY Aged Out No l onger eligible based on patient's age to complete this topic sDNA (Cologuard) Discontinued Procedures Procedure Name Priority Date/Time Associated Diagnosis Comments COLONOSCOPY Routine 08/07/2018 8:13 AM ADULT SERVICES LIBRARIAN GLUCOSE BY METER Routine 08/21/2012 7:19 AM ADULT SERVICES LIBRARIAN from Last 3 Months or Most Recently Relevant to Health Maintenance Results * COLONOSCOPY (08/07/2018 8:13 AM ADULT SERVICES LIBRARIAN) Pathologist [facility] COLONOSCOPY [facility] Endoscopy Department ___ Patient Name: Shin Best ? Procedure Date: 08/07/2018 8:13 AM ? Date of : 1945 ? Admit Type: Outpatient Age: 73 ? Room: 3 Note Status: Finalized ?Attending MD: Abraham Milner , Total Sedation Time: 41 mins of continuous bedside 1:1 Instrument Name: 325 [id number] AdultColonoscope ___ Procedure: ?Colonoscopy Indications: ?Screening for colorectal malignant neoplasm Providers: ?Abraham Milner, Marietta Garnica RN Referring MD: ? Soham James MD Medicines: ?Fentanyl 150 micrograms IV, Midazolam 3 mg IV Complications: ?No immediate complications. ___ Procedure: ?Pre-Anesthesia Assessment: ?- Prior to the procedure, a History and Physical ?was performed, and patient medications and ?allergies were reviewed. The patient is competent. ?The risks and benefits of the procedure and the ?sedation options and risks were discussed with the ?patient. All questions were answered and informed ?consent was obtained. Patient identification and ?proposed procedure were verified by the physician ?and the nurse in the procedure room. Mental Status ?Examination: alert and oriented. Airway ?Examination: normal oropharyngeal airway and neck ?mobility and Mallampati Class III (part of the ?uvula and soft palate visualized). Respiratory ?Examination: clear to auscultation. CV Examination: ?RRR, no murmurs, no S3 or S4. Prophylactic ?Antibiotics: The patient does not require ?prophylactic antibiotics. Prior Anticoagulants: The ?patient has taken Plavix (clopidogrel), last dose ?was 5 days prior to procedure. ASA Grade ?Assessment: III - A patient with severe systemic ?disease. After reviewing the risks and benefits, ?the patient was deemed in satisfactory condition to ?undergo the procedure. The anesthesia plan was to ?use moderate sedation / analgesia (conscious ?sedation). Immediately prior to administration of ?medications, the patient was re-assessed for ?adequacy to receive sedatives. The heart rate, ?respiratory rate, oxygen saturations, blood ?pressure, adequacy of pulmonary ventilation, and ?response to care were monitored throughout the ?procedure. The physical status of the patient was ?re-assessed after the procedure. ?After obtaining informed consent, the colonoscope ?was passed under direct vision. Throughout the ?procedure, the patient's blood pressure, pulse, and ?oxygen saturations were monitored continuously. The ?Colonoscope was introduced through the anus and ?advanced to the cecum, identified by appendiceal ?orifice and ileocecal valve. The ileocecal valve, ?the appendiceal orifice and the rectum were ?photographed. The colonoscopy was technically ?difficult and complex due to significant looping ?and the patient's body habitus. Successful ?completion of the procedure was aided by increasing ?the dose of sedation medication, changing the ?patient to a prone position, withdrawing and ?reinserting the scope, straightening and shortening ?the scope to obtain bowel loop reduction and using ?scope torsion. The patient tolerated the procedure ?fairly well. The quality of the bowel preparation ?was adequate. Scope withdrawal time was 13 minutes. ?The total duration of the procedure was 40 minutes. ? Findings: ? The digital rectal exam was normal. ? Two sessile polyps were found in the rectum. The polyps were 2 to 7 mm ? in size. These polyps were removed with a cold snare. Resection and ? retrieval were complete. Verification of patient identification for the ? specimen was done by the nurse. Estimated blood loss was minimal. ? No additional abnormalities were found on retroflexion. ? Impression: ? - Two 2 to 7 mm polyps in the rectum, removed with ?a cold snare. Resected and retrieved. Recommendation: ? - Discharge patient to home (ambulatory). ?- Await pathology results. If either of the polyps ?return as adenoma would recommend repeating the ?exam in 5 years. If both polyps are hyperplastic no ?further screening exams are necessary. If future ?colonoscopy is necessary would recommend use of ?deep sedation for patient comfort. ? Procedure Code(s): ? --- Professional --- ? 33600, Colonoscopy, flexible; with removal of tumor(s), polyp(s), or ? other lesion(s) by snare technique Diagnosis Code(s): ? --- Professional --- ? Z12.11, Encounter for screening for malignant neoplasm of colon ? K62.1, Rectal polyp CPT copyright 2017 [employer]. All rights reserved. The codes documented in this report are preliminary and upon assistant manager pt review may be revised to meet current compliance requirements. Abraham Milner, 08/07/2018 9:10:30 AM I was physically present for the entire viewing portion of the exam. Abraham Milner Number of Addenda: 0 Note Initiated On: 08/07/2018 8:13 AM MRN: ?[id number] Procedure Date: ? 08/07/2018 8:13:49 AM Scope Withdrawal Time: 0 hours 13 minutes 27 seconds Total Procedure Duration: 0 hours 40 minutes 58 seconds Estimated Blood Loss: ? Scope In: 8:20:39 AM Scope Out: 9:01:37 AM RADIOLOGY RESULTS 08/07/2018 8:13 AM ADULT SERVICES LIBRARIAN Soham James MD PROCEDURES RADIOLOGY RESULTS * Glucose by meter (08/21/2012 7:19 AM ADULT SERVICES LIBRARIAN) Glucose 79 60 - 99 mg/dL POINT OF CARE TEST, GLUCOSE Comment:Dr/RN Notified 08/21/2012 7:19 AM ADULT SERVICES LIBRARIAN 08/21/2012 7:25 AM ADULT SERVICES LIBRARIAN Stacy Ayers MD LAB - BEAKER POCT POINT OF CARE TEST, GLUCOSE from Last 3 Months or Most Recently Relevant to Health Maintenance Care Teams Assistant Public Defender Relationship Specialty Start Date End Date Soham James MD [facility] [address] [place] [address] PCP - General Family Practice 07/25/12
--- OUTSIDE RECORDS SUMMARY | 2023-11-01 10:32 | XMS_ITS | Referral Summary ---
Author Name Unknown Organization [place] Address [address] [place] [address] Care Team Providers Care Tape Edge Machine Operator Name Role Phone Soham James MD Primary Care Provider [phone] Allergies Active Allergy Reactions Criticality Noted Date [...] Comments Blood Pressure 118/67 08/07/2018 9:20 AM REMOTE SENSING SPECIALIST Pulse 64 08/07/2018 9:20 AM REMOTE SENSING SPECIALIST Temperature 36.6 ??C (97.9 ??F) 08/21/2012 8:20 AM CS T Respiratory Rate 20 08/07/2018 9:30 AM REMOTE SENSING SPECIALIST Oxygen Saturation 91% 08/07/2018 9:27 AM REMOTE SENSING SPECIALIST Inhaled Oxygen Concentration - - Weight 124.7 kg (275 lb) 08/07/2018 7:52 AM REMOTE SENSING SPECIALIST Height 177.8 cm (5' 10) 08/07/2018 7:52 AM REMOTE SENSING SPECIALIST Body Mass Index 39.46 08/07/2018 7:52 AM REMOTE SENSING SPECIALIST Plan of Treatment Not on file Procedures Procedure Name Priority Date/Time Associated Diagnosis Comments COLONOSCOPY Routine 08/07/2018 8:13 AM REMOTE SENSING SPECIALIST GLUCOSE BY METER Routine 08/21/2012 7:19 AM REMOTE SENSING SPECIALIST from Last 3 Months or Most Recently Relevant to Health Maintenance Results * COLONOSCOPY (08/07/2018 8:13 AM REMOTE SENSING SPECIALIST) [facility] COLONOSCOPY [facility] Endoscopy Department ___ Patient Name: Shin Best ? Procedure Date: 08/07/2018 8:13 AM ? Date of : 1945 ? Admit Type: Outpatient Age: 73 ? Room: 3 Note Status: Finalized ?Attending MD: Abraham Milner , Total Sedation Time: 41 mins of continuous bedside 1:1 Instrument Name: 325 [id number] AdultColonoscope ___ Procedure: ?Colonoscopy Indications: ?Screening for [...] Procedure Code(s): ? --- Professional --- ? 27151, Colonoscopy, flexible; with removal of tumor(s), polyp(s), or ? other lesion(s) by snare technique Diagnosis Code(s): ? --- Professional --- ? Z12.11, Encounter for screening for malignant neoplasm of colon ? K62.1, Rectal polyp CPT copyright 2017 [employer]. All rights reserved. The codes documented in this report are preliminary and upon pre coder review may be revised to meet current compliance requirements. Abraham Milner, 08/07/2018 9:10:30 AM I was physically present for the entire viewing portion of the exam. Abraham Milner Number of Addenda: 0 Note Initiated On: 08/07/2018 8:13 AM MRN: ?[id number] Procedure Date: ? 08/07/2018 8:13:49 AM Scope Withdrawal Time: 0 hours 13 minutes 27 seconds Total Procedure Duration: 0 hours 40 minutes 58 seconds Estimated Blood Loss: ? Scope In: 8:20:39 AM Scope Out: 9:01:37 AM RADIOLOGY RESULTS 08/07/2018 8:13 AM REMOTE SENSING SPECIALIST Soham James MD PROCEDURES RADIOLOGY RESULTS * Glucose by meter (08/21/2012 7:19 AM REMOTE SENSING SPECIALIST) Glucose 79 60 - 99 mg/dL POINT OF CARE TEST, GLUCOSE Comment:Dr/RN Notified 08/21/2012 7:19 AM REMOTE SENSING SPECIALIST 08/21/2012 7:25 AM REMOTE SENSING SPECIALIST Stacy Ayers MD [facility] POCT POINT OF CARE TEST, GLUCOSE from Last 3 Months or Most Recently Relevant to Health Maintenance Insurance Payer Benefit Plan / Group Subscriber ID Effective Dates Phone Address Type [place] [id number] 2018-Pr miguel nt [address] [address] [place] [address] Indemnity MEDICARE MEDICARE [id number] 2012-Pres ent ATTN CLAIMS [address] [place] [address] Medicare Care Teams Tape Edge Machine Operator Relationship Specialty Start Date End Date Soham James MD [facility] [address] [place] [address] PCP - General Family Practice 07/25/12
--- OUTSIDE RECORDS SUMMARY | 2023-11-01 10:32 | XMS_ITS | Encounter Summary ---
Author Name Unknown Organization [place] Address [address] [place] [address]. [place] [address] Care Team Providers Care Web Sizer Name Role Phone Soham James MD Primary Care Provider [phone] Encounter Details Date Type Department Care Team (Late st Contact Info) Description 2023 Telephone [facility] [address] [place], [place] [address] Piper Castanon, [place], Podiatry/Foot and Ankle Surgery [address] [facility] [address] [place], [place] [address] Social History Tobacco Use Types Packs/Day Years [...] encounter Miscellaneous Notes * Telephone Encounter - EliaMark - 2023 9:27 AM CST Consent to communicate found on file. Spoke with patient about scheduling him due to the referral we received from Dr. Soham James ([facility]) via fax this morning. Scheduled patient to see Dr. Castanon on June 20 in [place]. Patient requested the building address be sent to him via mail, so a letter was sent out. Patient was appreciative of the call. Dionte Rodrigez, Visit Driving School Instructor OR ENERGY CONSULTANT documented in this encounter Plan of Treatment Not on file documented as of this encounter Visit Diagnoses Not on filedocumented in this encounter Care Teams Web Sizer Relationship Specialty Start Date End Date Soham James MD [facility] [address] [place] [address] PCP - General Family Practice 07/25/12 documented as of this encounter
== END 2023-11-01 10:28 | disposition home or self-care (01) ==
LOC: WOUND 10:27
PROVIDERS: PCP Family Medicine; Visit Provider Family Medicine
DX: E11.621 Type 2 diabetes mellitus with foot ulcer (principal); L97.512 Non-pressure chronic ulcer of other part of right foot with fat layer exposed; I89.0 Lymphedema, not elsewhere classified; Z79.4 Long term (current) use of insulin
CPT/HCPCS: 11042

== ENCOUNTER 2023-11-02 13:02 | Outpatient (RCR) | payer MEDICARE, BC, SELFPAY | END 2024-03-01 23:59 | disposition home or self-care (01) | PROVIDERS: PCP Family Medicine; Visit Provider Family Medicine | DX: M54.2 Cervicalgia (principal); M25.511 Pain in right shoulder; R29.898 Other symptoms and signs involving the musculoskeletal system; Z74.09 Other reduced mobility; R26.89 Other abnormalities of gait and mobility; Z51.89 Encounter for other specified aftercare | CPT/HCPCS: 97110; 97162 ==

== ENCOUNTER 2023-11-08 09:09 | Outpatient (CLI) | payer MEDICARE, BC, SELFPAY | END 2023-11-08 09:10 | disposition home or self-care (01) | PROVIDERS: PCP Family Medicine; Visit Provider Surgery | DX: E11.621 Type 2 diabetes mellitus with foot ulcer (principal); I87.2 Venous insufficiency (chronic) (peripheral); L97.512 Non-pressure chronic ulcer of other part of right foot with fat layer exposed; I89.0 Lymphedema, not elsewhere classified; Z79.4 Long term (current) use of insulin | CPT/HCPCS: 97597 ==

== ENCOUNTER 2023-11-15 10:24 | Outpatient (CLI) | payer MEDICARE, BC, SELFPAY ==
--- OUTSIDE RECORDS SUMMARY | 2023-11-15 10:27 | XMS_ITS | Continuity of Care Document ---
Author Name Unknown Organization [facility] Address [address] [place] [address] Phone Care Team Providers Care Glass Beveler Name Role Phone Roshni Rousseau DPT Unavailable [...] Providers Copied on Encounter RAJIV Hughes, [address], [place], [place], [id number], [place] tel:[phone] [place] [facility] No Information 3 Soham Barakat. [address], [address], [place], [address], [place]. tel:[phone] RAJIV [facility], [address], [place], [place], [id number], [place] tel:[phone] [facility] Spinal stenosis, lumbar region with neurogenic claudicationRadic ulopathy, lumbar regionType 2 diabetes mellitus with diabetic neuropathy, unsp 3 Soham Barakat. [address], [address], [place], [address], [place]. tel:[phone] Referring Provider: Laron Basurto, [address], [place], [address] . tel:[phone] Psychiatric Diagnostic Evaluation Telephone Only RAJIV Hughes, [address], [place], [place], [id number], [place] tel:[phone] [facility] Pain disorder with related psychological factors 3 Selwyn Pabon. [address], [place], [address], [place]. tel:[phone] Referring Provider: Laron Basurto, [address], [place], [address] . tel:[phone] [facility], [address], [place], [place], [id number], [place] tel:[phone] [facility] Spinal stenosis, lumbar region with neurogenic claudicationRadic ulopathy, lumbar region 3 Foster Sam. [address], [place], [address], [place]. tel:[phone] Referring Provider: Laron Basurto, [address], [place], [address] . tel:[phone] Est Pt Eval [facility], [address], [place], [place], [id number], [place] tel:[phone] [facility] back pain (chief complaint) Spinal stenosis, lumbar region with neurogenic claudicationType 2 diabetes mellitus w/ diabetic neuropathyRadicul opathy, lumbar regionBody mass index (BMI) 40.0-44.9, adult 3 Winger Sam. [address], [place], [address], [place]. tel:[phone] Referring Provider: Laron Basurto, [address], [place], [address] . tel:[phone] New Pt Eval 45 Min [facility], [facility], [address], [place], [place], [id number], [place] tel:[phone] [facility] back pain (chief complaint) Body mass index (BMI) 40.0-44.9, adultSpinal stenosis, lumbar region with neurogenic claudicationRadic ulopathy, lumbar regionType 2 diabetes mellitus w/ diabetic neuropathy 3 Foster Sam. [address], [place], [address], [place]. tel:[phone] Referring Provider: Laron Basurto, [address], [place], [address] . tel:[phone] Family History Family Member Type Diagnosis Age At Onset No Information Payers Payer name Insurance type Covered libertarian ID Bernice galicia(s) Medicare Part B AKUA [id number] [employer] [place] [employer] [id number] Social History Type Description Quantity Date Captured [...] Instructions Date Instruction Additional Infor mation - Prior authorizatio n in progress for spinal cord stimulator trial Related to Type 2 diabetes mellitus w/ diabetic neuropathy - Schedule implant e valuation with physical [...] diabetic neuropathy -Requested medical r ecords from [facility]Order MRI of the lumbar spine at [facility] [...]
--- OUTSIDE RECORDS SUMMARY | 2023-11-15 10:27 | XMS_ITS | Clinical Summary ---
Author Name Unknown Organization [facility] Address [address] [place] [address] Care Team Providers Care Pharmacy Clinical Coordinator Name Role Phone Soham James M.D., Ph.D. Primary Care Provider Source Comments Patient records contain information from all sites at [facility]. For routine questions regarding patient records, call [phone] during business hours, M-F 8:00 AM - 5:00 PM Central Time. Record requests for emergency care only can be directed to [phone] at any time.[facility] Allergies Active Allergy Reactions Criticality Noted Date Comments Esomeprazole Magnesium Nausea Only 11/12/2012 INCREASED ACID Penicillins Hives (Reselect Reaction) 04/15/2014 Djpnpcj-Jhi-Pqg Reductase Inhibitors Myalgia 04/15/2014 Medications Medication Sig Dispensed Refills Start Date End Date Status insulin syringe-needle U-100 1 mL 29 gauge x 1/2 syringe 11/10/2017 Active Accu-Chek Compact Plus Test strip USE TO TEST 3 TIMES DAILY 300 strip 3 07/22/2019 Active blood-glucose meter miscIndications:Rachael betes Mellitus Type 2 With Other Circulatory Complication Hyperglycemic (HCC) Test as directed for diabetes control. Accu Check Guide Me Meter 1 each 08/28/2019 Active lancets 3 each daily. 300 each 3 09/12/2019 Active Accu-Chek Guide test strips stripsIndications:D iabetes Mellitus Type 2 With Other Circulatory Complication Hyperglycemic (HCC) TEST 3 TIMES DAILY. E11.9 300 strip 3 05/28/2021 Active desonide (DESOWEN) 0.05 % cream Apply 1 application topically 2 (two) times a day. Apply to affected area. 10/14/2021 Active clopidogreL (PLAVIX) 75 mg tablet take 1 tablet by mouth every day 90 tablet 3 05/12/2023 Active rosuvastatin (CRESTOR) 20 mg tabletIndications:H yperlipidemia TAKE 1 TABLET BY MOUTH EVERY DAY 90 tablet 1 05/31/2023 Active insulin aspart U-100 (NovoLOG Flexpen U-100 Insulin) 100 unit/mL (3 mL) injectionIndication s:Diabetes Mellitus Type 2 With Other Circulatory Complication Hyperglycemic (HCC) Inject 20 Units under the skin 3 (three) times a day with meals. 60 mL 3 05/31/2023 4 Active finasteride (PROSCAR) 5 mg tabletIndications:U rgency Urinary Take 1 tablet (5 mg total) by mouth daily. 90 tablet 3 05/31/2023 Active DULoxetine (CYMBALTA) [address] capsuleIndications: Depression Major One Episode Full Remission (HCC) take [...] 07/07/2023 Active nitroglycerin (NITROSTAT) 0.4 mg SL tabletIndications:C oronary Artery Disease With Stable Angina (HCC) Place 1 tablet (0.4 mg total) under the tongue every 5 (five) minutes as needed for chest pain. 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 90 tablet 3 07/20/2023 Active omeprazole (PriLOSEC) [address] capsule take 1 capsule by mouth every day 90 capsule 3 07/27/2023 Active folic acid 1 mg tablet Take 1 tablet (1 mg total) by mouth daily. 90 tablet 3 08/17/2023 Active Basaglmadina Theodore U-100 Insulin 100 unit/mL (3 mL) injectionIndication s:Diabetes Mellitus Type 2 With Diabetic Neuropathy (HCC) INJECT 70 UNITS UNDER THE SKIN 2 (TWO) TIMES A DAY. 126 mL 3 09/18/2023 Active semaglutide (OZEMPIC) 2 mg/dose (8 mg/3 mL) injection Inject 2 mg under the skin every 7 (seven) days. 9 mL 3 10/11/2023 Active gabapentin (NEURONTIN) 100 mg capsuleIndications: Pain Neck Take 2 capsules (200 mg total) by mouth 3 (three) times a day for 14 days, THEN 3 capsules (300 mg total) 3 (three) times a day. 810 capsule 3 10/11/2023 5 Active DME CPAPIndications:Cd Reactor Operator ea Sleep Obstructive DME Order 1 each 10/11/2023 Active triamcinolone (KENALOG) 0.1 % creamIndications:De rmatitis Seborrheic Apply 1 Application topically 2 (two) times a day. Apply to face. 30 g 11 10/11/2023 Active clotrimazole (LOTRIMIN) 1 % creamIndications:De rmatitis Seborrheic Apply 1 Application topically 2 (two) times a day. Apply to face. 30 g 10/11/2023 Active insulin glargine (Lantus Solostar U-100 Insulin) 100 unit/mL (3 mL) injectionIndication s:Diabetes Mellitus Type 2 With Diabetic Neuropathy (HCC) Inject 70 Units under the skin 2 (two) times a day. Injected daily as directed. 126 mL 3 10/22/2023 Active Active Problems Problem Noted Date Diagnosed [...] Encounters Date Type Department Care Team Description 11/06/2023 Clinical Communication Department of Family Medicine, [facility], in [address] [place] [address] Soham James M.D., Ph.D. [facility] Form ([facility] (PT Outpatient Eval 11/02/23) 10/23/2023 Clinical Communication Department of Family [facility], [facility], [address] [address] Soham James M.D., Ph.D. Form Review ([facility]. diabetic footwear ) 10/18/2023 Clinical Communication Department of [facility], [facility], [address] [address] Soham James M.D., Ph.D. 10/12/[address] [facility], [address] [address] Soham James M.D., Ph.D. PT Referral 10/11/2023 6:00 PM CDT Office Visit Department of [facility], [address] [address] Soham James M.D., Ph.D. Coronary Artery Disease With Stable Angina (HCC) (Primary Dx); Stroke Cerebrovascular Accident Personal History; Hypersomnia; Apnea Sleep Obstructive; Dermatitis Seborrheic; Wound Foot Open Subsequent Right; Diabetes Mellitus Type 2 With Diabetic Neuropathy (HCC); 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); Pain Neck; Pain Shoulder Right Discharge Disposition: Home or Self Care 10/10/2023 Orders Only [facility] Soham James M.D., Ph.D. Diabetes Mellitus Type 2 With Diabetic Neuropathy (HCC) 09/17/2023 Nurse Triage Department of [facility], [facility], [address] [address] Tracey Thompson, R.N. Med Question 09/17/2023 Refill Department of Family Medicine, [facility], in [address] [place] [address] Soham James M.D., Ph.D. Med Refill 09/15/2023 Refill Department of Family Medicine, [facility], in [address] [place] [address] Soham James M.D., Ph.D. Med Change Request 09/14/2023 Refill Department of Family Medicine, [facility], in [address] [place] [address] Soham James M.D., Ph.D. Med Refill 09/14/2023 Clinical Communication Department of Family [facility], [facility], in [address] [place] [address] Soham James M.D., Ph.D. 08/30/2023 Refill Department of Family Medicine, [facility], in [address] [place] [address] Soham James M.D., Ph.D. Med Change Request 08/23/2023 Refill Department of Family Medicine, [facility], in [address] [place] [address] Soham James M.D., Ph.D. Med Change Request 08/23/2023 Refill Department of Family Medicine, [facility], in [address] [place] [address] Soham James M.D., Ph.D. Med Refill 08/22/2023 Clinical Communication Department of Family Medicine, [facility], in [address] [place] [address] Soham James M.D., Ph.D. Form Review ([facility] Order [id number] ) 08/21/2023 Clinical Communication Department of [facility], [facility], [address] [address] Soham James M.D., Ph.D. Form Review ([facility] ( Order [id number]) 08/21/2023 Clinical Communication Department of [facility], [facility], [address] [address] Soham James M.D., Ph.D. Form Review ([facility] - order [id number]) from Last 3 Months Immunizations Name Administration Dates Next Due H1N1 All Forms 08/10/2009 Influenza Split Preservative Free ID 05/15/2012 Influenza TIV (IM) 08/25/2006 Influenza high dose QV(65 years or older) (PF) 1 ,04/20/2020 Influenza, Quadrivalent, Adjuvanted, Preservativ e Free 05/12/2023 Influenza, Seasonal, Injectable 08/25/2006 PCV13 08/18/2008 PPSV23 12/04/2018 SARS-COV-2 (COVID-19) - MODE RNA (12 YEARS AND OLDER) [id number] 05/12/2023 SARS-COV-2 (COVID-19) - MODERNA(Discontinued) SARS-COV-2 (COVID-19) [...] 177 cm (5' 9.69) 05/31/2023 2:47 PM HEALTH UNDERWRITER Body Mass Index 39.32 05/31/2023 2:47 PM HEALTH UNDERWRITER Plan of Treatment Health Maintenance Due Date [...] (PHQ-9) 02/10/2024 10/11/2023 Urine Albumin 05/31/2024 05/31/2023, 0402/2022, 09/15/2020, Additional history exists Visit: Medicare Annual Wellness 06/01/2024 11/22/202 3 Thyroid Stimulating Hormone (TSH) test for thyroid [...] FIT Discontinued Medical Devices Implanted Type Area New Home Sales Consultant Device Identifier Shelf Expiration Date Model / Serial / Lot Knee Implant- 0 Implanted:08/14 by Amrik Falcon M.D. (Quantity not on file) Knee Implant Knee Procedures Procedure Name Priority Date/Time Associated Diagnosis Comments HEMOGLOBIN A1C, B Routine 10/11/2023 7:1 2 PM CDT Diabetes Mellitus Type 2 With Diabetic Neuropathy (HCC) EXTI SODIUM, S/P Routine 07/05/2023 9:05 AM HEALTH UNDERWRITER EXTI BASIC METABOLIC PANEL, S/P Routine 07/04/2023 11:49 PM HEALTH UNDERWRITER EXTI THYROID-STIMULATI NG HORMONE-SENSITIVE (S-TSH), S Routine 06/19/2023 5:47 AM HEALTH UNDERWRITER ALBUMIN, RANDOM, U Routine 05/31/2023 2:26 PM HEALTH UNDERWRITER Diabetes Mellitus Type 2 With Diabetic Neuropathy [...] James M.D., Ph.D. LAB BLOOD ADD-O N [facility] [address] [place] [address], [facility] CNFL [facility] in [address] [address] * (ABNORMAL) Albumin, Random, Urine (05/31/2023 2:26 PM HEALTH UNDERWRITER) Microalbumin 53.8 mg/L 05/31/2023 2:48 PM HEALTH UNDERWRITER CNFL Creatinine 115 mg/dL 05/31/2023 2:48 PM HEALTH UNDERWRITER CNFL Albumin/Creatinin e Ratio 47(H) <17 mg/g 05/31/2023 2:48 PM HEALTH UNDERWRITER CNFL Urine (Urine, Midstream) 05/31/2023 2:26 PM HEALTH UNDERWRITER 05/31/2023 2:26 PM HEALTH UNDERWRITER Soham James M.D., Ph.D. LAB URINE [facility] [address] [place] [address], [facility] CNFL [facility] in [address] [address] * US Aorta AAA Screening (05/05/2020 10:41 [...] S Nonreactive Nonreactive 10/09/2017 10:35 AM CDT [facility] Blood 10/06/2017 2:29 PM CDT 10/06/2017 9:44 PM CDT Narrative [facility] - 10/09/2017 10:35 AM CDT Specimen Information: Specimen ID: [id number] Specimen Type: Blood Specimen Collection Start Date: 10/06/2017 ??2:29 PM Specimen Received Date: 10/06/2017 ??9:44 PM Specimen ID: [id number] Specimen Type: Blood Specimen Collection Start Date: 10/06/2017 ??2:29 PM Specimen Received Date: 10/06/2017 ??9:44 PM Soham James M.D., Ph.D. LAB MICROBIOLOG Y - BLOOD ORDERABLES [facility] [address] [place] [address], [facility] from Last 3 Months or Most Recently Relevant to Health Maintenance Care Teams Pharmacy Clinical Coordinator Relationship Specialty Start Date End Date Soham James M.D., Ph.D. [id number] [place] [id number] PCP - General 12/22/16
--- OUTSIDE RECORDS SUMMARY | 2023-11-15 10:27 | XMS_ITS | Clinical Summary ---
Author Name Unknown Organization [facility] Address [place], [place] [address] Care Team Providers Care Pediatric Critical Care Nurse Name Role Phone Soham James MD Primary Care Provider [phone] Hao Drew MD Unavailable Allergies Active Allergy Reactions Criticality Noted Date Comments Esomeprazole Magnesium Nausea Only 11/12/2012 INCREASED ACID Penicillins Hives 04/15/2014 Fjtpmip-Wxh-Ezj Reductase Inhibitors Nausea Only,Myalgia 04/15/2014 Medications Medication [...] 05/05/2015 Hyperlipidemia 05/05/2015 CAD (coronary artery disease), [place] coronary a rtery 10/30/2014 Systolic murmur 09/29/2014 [...] Department Care Team Description 10/06/2023 Lab Requisition [facility] [phone] Jessica Barrow MD 10/05/2023 9:48 AM CDT - 10/05/2023 11:59 PM CDT Hospital [facility] [address] [place] [address] [address] [place] [address] Zeny Isaac, Samina Nolasco, PT Left without seen 10/05/2023 Travel 10/03/2023 Patient Outreach [facility] [address] [place] [address] Bess Conroy Brain Injury Re[facility] Care Coordination - [facility] 09/22/2023 Telephone [facility] [address] [place] [phone] Hao Drew MD Results 09/21/2023 10:36 AM CDT - 09/21/2023 11:59 PM CDT Hospital Encounter [facility] [address] [place] [address] Zeny Isaac NP Bradshaw, Emily, PT 09/21/2023 Travel 09/14/2023 10:43 AM NETWORK SYSTEMS ENGINEER - 09/14/2023 11:59 PM NETWORK SYSTEMS ENGINEER Hospital Encounter [facility] [address] [place] [address] Zeny Isaac NP Bradshaw, Emily, PT 09/14/2023 Travel 09/07/2023 10:40 AM NETWORK SYSTEMS ENGINEER - 09/07/2023 11:59 PM NETWORK SYSTEMS ENGINEER Hospital Encounter [facility] [address] [place] [address] Zeny Isaac NP Bradshaw, Emily, PT 09/07/2023 Travel 09/06/2023 Telephone [facility] [address] [place] [address] Zeny Isaac NP GUT SORTER ASSESSMENT 08/31/2023 Telephone [facility] [address] [place] [address] Zeny Isaac NP No Driving (No driving until BTW) 08/31/2023 Orders Only [facility] [address] [place] [address] Zeny Isaac NP <No scans attached> 08/29/2023 2:07 PM NETWORK SYSTEMS ENGINEER - 08/29/2023 11:59 PM NETWORK SYSTEMS ENGINEER Hospital Encounter [facility] [address] [place] [address] Zeny Isaac NP Acute CVA (cerebrovascular accident) (HC) 08/28/2023 1:47 PM NETWORK SYSTEMS ENGINEER - 08/28/2023 11:59 PM NETWORK SYSTEMS ENGINEER [facility] [address] [place] [address] Zeny Isaac, Mary Lo H, PT Acute CVA (cerebrovascular accident) (HC) 08/28/2023 Travel 08/22/2023 Telephone [facility] [address] [place] [phone] Hao Drew MD Prior Authorization (Eliquis) 08/17/2023 10:00 AM NETWORK SYSTEMS ENGINEER Home Care Visit [facility] [address] [place] [address] Sisi Angeles, RN SN - OASIS DISCHARGE 08/17/2023 Home Care Visit [facility] [address] [place] [address] Isabell Yu, RN CARE COORDINATION from Last 3 Months Immunizations Name Administration [...] Comments Blood Pressure 130/70 08/17/2023 10:43 AM NETWORK SYSTEMS ENGINEER Pulse 67 08/17/2023 10:43 AM NETWORK SYSTEMS ENGINEER Temperature 36.7 ??C (98.1 ??F) 08/17/2023 10:[address] Respiratory Rate 20 08/17/2023 10:43 AM NETWORK SYSTEMS ENGINEER Oxygen Saturation 100% 08/17/2023 10:43 AM NETWORK SYSTEMS ENGINEER Inhaled Oxygen Concentration - - Weight 120.2 kg (265 lb) 07/31/2023 10:43 AM NETWORK SYSTEMS ENGINEER Height 180.3 cm (5' 11) 07/31/2023 10:43 AM NETWORK SYSTEMS ENGINEER Body Mass Index 36.96 07/31/2023 10:43 AM NETWORK SYSTEMS ENGINEER Plan of Treatment Health Maintenance Due Date [...] 9, 08/18/2008 Medical Devices Implanted Type Area Academic Dean Device Identifier Shelf Expiration Date Model / Serial / Lot Cmnt Bone Simplex Hv Gentamicin - [id number] Implanted:Qty: 2 on 04/28/2014 by Amrik Falcon MD at [facility] Left: Knee [employer] 11/06/2014 6195-1-001 # / / [id number] Patella [id number] Triathlon Asymmetric X3 - [id number] Implanted:Qty: 1 on 04/28/2014 by Amrik Falcon MD at [facility] Left: Knee [employer] 02/06/2019 5551-G-350 # / / [id number] Fem Lt Sz7 Triathlon Post Stbznon Pors - [id number] Implanted:Qty: 1 on 04/28/2014 by Amrik Falcon MD at [facility] Left: Knee [employer] 02/06/2018 5515-F-701 # / / [id number] Baseplate Tib Sz6 Triathlon Pe - [id number] Implanted:Qty: 1 on 04/28/2014 by Amrik Falcon MD at [facility] Left: Knee [employer] 12/07/2018 5521-B-600 # / / [id number] Insert Knee Sz6 11mm Triathlonpost Stbz X3 - [id number] Implanted:Qty: 1 on 04/28/2014 by Amrik Falcon MD at [facility] Left: Knee [employer] 02/06/2019 5532-G-611 # / / [id number] Triathlon X3 Asymmetric Patella S10w30en - [id number] Implanted:Qty: 1 on 08/14/2019 by Amrik Falcon MD at [facility] Right: Knee [employer] 02/19/2024 5551-G-381 -E / / [id number] Triathlon X3 Tibial Bearing Insert Cs Valery 5 Typ Cs Thkns 11mm - [id number] Implanted:Qty: 1 on 08/14/2019 by Amrik Falcon MD at [facility] Right: Knee [employer] 03/24/2024 5531-G-511 -E / / [id number] Cmnt Bone Simplex Hv - [id number] Implanted:Qty: 1 on 08/14/2019 by Amrik Falcon MD at [facility] Right: Knee [employer] 12/07/2020 6194-1-001 # / / [id number] Cmnt Bone Simplex Hv Gentamicin - [id number] Implanted:Qty: 1 on 08/14/2019 by Amrik Falcon MD at [facility] Right: Knee [employer] 06/08/2020 6195-1-001 # / / [id number] Fem Rt Sz6 Triathlon Cruc Ret Co Cr - [id number] Implanted:Qty: 1 on 08/14/2019 by Amrik Falcon MD at [facility] Right: Knee [employer] 01/11/2024 5510-F-602 # / / [id number] Baseplate Tib Sz5 Triathlon Pe - [id number] Implanted:Qty: 1 on 08/14/2019 by Amrik Falcon MD at [facility] Right: Knee [employer] 04/17/2024 5521-B-500 # / / [id number] Procedures Procedure Name Priority Date/Time Associated Diagnosis Comments REFERRAL ID/SUSC,NONURINE Routine 10/06/2023 11:30 AM CDT EXTENDED HOLTER Routine 09/20/2023 Paroxysmal atrial fibrillation (HC) from Last 3 Months Results * (ABNORMAL) REFERRAL ID/SUSC,NONURINE (10/06/2023 11:30 AM CDT) CULTURE RESULT(A) 10/10/2023 10:37 AM CDT [facility] CULTURE Streptococcus anginosus 10/10/2023 10:37 AM CDT [facility] Other Client Collect / Unknown 10/06/2023 11:30 AM CDT 10/06/2023 9:05 PM CDT Narrative Organism Antibiotic Method Susceptibility Streptococcus anginosus PENICILLIN <=0.06: S Streptococcus anginosus ERYTHROMYCIN R Streptococcus anginosus CLINDAMYCIN R Streptococcus anginosus VANCOMYCIN S Streptococcus anginosus CLARITHROMYCIN R Jessica Barrow MD [facility] [address] [place] [address], * EXTENDED HOLTER (09/20/2023) Hao Drew MD [...] 11:50 PM 08/09/2018 3:08 PM Care Teams Pediatric Critical Care Nurse Relationship Specialty Start [place] [id number] [place] [phone] PCP - General Family Practice 04/10/14 Hao Drew MD [address] [facility] [[email or web address] [address] [place] [address] Cardiology Cardiovascular Disease 12/30/19
--- OUTSIDE RECORDS SUMMARY | 2023-11-15 10:28 | XMS_ITS ---
Author Name Unknown Organization [facility] Address [address] [place] [address] Care Team Providers Care Drain Tile Machine Operator Name Role Phone Unavailable Unavailable Unavailable Surgery Details Not on file Complications Check Surgery Details section. Procedure Estimated Blood Loss Check Surgery Details section. Procedure Findings Check Surgery Details section. Procedure Specimens Taken Check Surgery Details section.
--- OUTSIDE RECORDS SUMMARY | 2023-11-15 10:28 | XMS_ITS | Encounter Summary ---
Author Name Unknown Organization [facility] Address [address] [place] [address] Care Team Providers Care Manager Care Management Name Role Phone Soham James M.D., Ph.D. Primary Care Provider Encounter Details Date Type Department Care Team (Late st Contact Info) Description 09/14/2023 Clinical Communication Department of Family Medicine, [facility], in [address] [phone] Soham James M.D., Ph.D. [address] [place] [phone] Social History Tobacco Use Types Packs/Day [...] following references were used: nursing clinical judgement ICAL APPLICATIONS MANAGER * Telephone Encounter - Marialuisa Benson - [...] send all scheduling replies to scheduling pool. ICAL APPLICATIONS MANAGER documented in this encounter Plan of Treatment Not on file documented as of this encounter Visit Diagnoses Diagnosis Diabetes Mellitus Type 2 With Diabetic Neuropathy (HCC) documented in this encounter Additional Health Concerns Assessment Noted Time PHQ-9 Depression Total Score: 3 05/31/20 23 3:22 PM CLINICAL APPLICATIONS MANAGER documented as of this encounter Care Teams Manager Care Management Relationship Specialty Start Date End Date Soham James M.D., Ph.D. [address] [place] [phone] PCP - General 12/22/16 documented as of this encounter
--- OUTSIDE RECORDS SUMMARY | 2023-11-15 10:28 | XMS_ITS | Encounter Summary ---
Author Name Unknown Organization [facility] Address [address] [place] [address] Care Team Providers Care Power Electronics Research Engineer Name Role Phone Soham James M.D., Ph.D. Primary Care Provider Reason for Visit * Reason Comments Med Refill Encounter Details Date Type Department Care Team (Late st Contact Info) Description 08/11/2023 Refill Department of Family Medicine, [facility], in [address] [phone] Soham James M.D., Ph.D. [address] [place] [phone] Med Refill Social History Tobacco Use [...] Edita Ba L.PJoshNJosh - 08/17/2023 8:02 AM HAND ETCHER HELPER Per AVS from 08/14/2023 patient is taking Gabapentin 100mg TID ETCHER HELPER * Telephone Encounter - Jay Quincy Renae [...] 1 capsule (100 mg total) by mouth. ETCHER HELPER documented in this encounter Plan of Treatment Not on file documented as of this encounter Visit Diagnoses Not on filedocumented in this encounter Additional Health Concerns Assessment Noted Time PHQ-9 Depression Total Score: 3 05/31/20 23 3:22 PM HAND ETCHER HELPER documented as of this encounter Care Teams Power Electronics Research Engineer Relationship Specialty Start Date End Date Soham James M.D., Ph.D. [address] [place] [phone] PCP - General 12/22/16 documented as of this encounter
--- OUTSIDE RECORDS SUMMARY | 2023-11-15 10:28 | XMS_ITS | Encounter Summary ---
Author Name Unknown Organization [facility] Address [address] [place] [address] Care Team Providers Care Packaging Supervisor Name Role Phone Soham James M.D., Ph.D. Primary Care Provider Encounter Details Date Type Department Care Team (Late st Contact Info) Description 10/10/2023 Orders Only [facility] Soham James M.D., Ph.D. [address] [place] [phone] Diabetes Mellitus Type 2 With Diabetic [...] James M.D., Ph.D. LAB BLOOD ADD-O N [facility] [address] [place] [address], [facility] [address] [address] documented in this encounter Visit Diagnoses Diagnosis Diabetes Mellitus Type 2 With Diabetic Neuropathy (HCC) documented in this encounter Additional Health Concerns Assessment Noted Time PHQ-9 Depression Total Score: 3 05/31/20 23 3:22 PM STEEL SAMPLER documented as of this encounter Care Teams Packaging Supervisor Relationship Specialty Start Date End Date Soham James M.D., Ph.D. [address] [place] [phone] PCP - General 12/22/16 documented as of this encounter
--- OUTSIDE RECORDS SUMMARY | 2023-11-15 10:28 | XMS_ITS | Encounter Summary ---
Author Name Unknown Organization [facility] Address [address] [place] [address] Care Team Providers Care Manager Of Operations Name Role Phone Soham James M.D., Ph.D. Primary Care Provider Reason for Visit * Reason Comments Med Refill Encounter Details Date Type Department Care Team (Late st Contact Info) Description 09/14/2023 Refill Department of Family Medicine, [facility], in [address] [phone] Soham James M.D., Ph.D. [address] [place] [phone] Med Refill Social History Tobacco Use Types [...] Total Score: 3 05/31/20 23 3:22 PM ALPACA FARMER documented as of this encounter Care Teams Manager Of Operations Relationship Specialty Start Date End Date Soham James M.D., Ph.D. [address] [phone] PCP - General 12/22/16 documented as of this encounter
--- OUTSIDE RECORDS SUMMARY | 2023-11-15 10:28 | XMS_ITS | Encounter Summary ---
Author Name Unknown Organization [facility] Address [address] [place] [address] Care Team Providers Care Costume Designer Name Role Phone Soham James M.D., Ph.D. Primary Care Provider Reason for Visit * Reason Onset Date Comments PandaDoc Form 11/06/2023 [facility] (PT Outpatient Eval 11/02/23 Encounter Details Date Type Department Care Team (Latest Contact Info) Description 11/06/2023 Clinical Communication Department of Family Medicine, [facility], in [address] [phone] Soham James M.D., Ph.D. [address] [place] [phone] PandaDoc Form ([facility] (PT Outpatient Eval 11/02/23) Social History Tobacco Use Types Packs/Day Years [...] encounter Miscellaneous Notes * Telephone Encounter - Maranda Joshi - 11/07/2023 9:14 AM CDT Completed form(s) faxed back to [place], and sent to [facility] for scanning. * Telephone Encounter - Maranda Joshi - 11/06/2023 4:50 PM CDT Form was routed to Soham James M.D., Ph.D. for electronic review/signature. ANGLEDOZER OPERATOR: [facility] PHONE NUMBER: [phone] INFO REQUESTED: PT Outpatient Eval 11/02/23 INSTRUCTIONS: Fax information to [phone] documented in this encounter Plan of Treatment Not on file documented as of this encounter Visit Diagnoses Not on filedocumented in this encounter Additional Health Concerns Assessment Noted Time PHQ-9 Depression Total Score: 5 10/11/19 24 9:23 PM CDT documented as of this encounter Care Teams Costume Designer Relationship Specialty Start Date End Date Soham James M.D., Ph.D. [address] [place] [phone] PCP - General 12/22/16 documented as of this encounter
--- OUTSIDE RECORDS SUMMARY | 2023-11-15 10:28 | XMS_ITS | Encounter Summary ---
Author Name Unknown Organization [facility] Address [address] [place] [address] Care Team Providers Care Angledozer Operator Name Role Phone Soham James M.D., Ph.D. Primary Care Provider Encounter Details Date Type Department Care Team (Late st Contact Info) Description 08/10/2023 Clinical Communication Department of Family Medicine, [facility], in [address] [phone] Soham James M.D., Ph.D. [address] [place] [phone] Social History Tobacco Use Types Packs/Day [...] Communication. Primary Provider: Soham James M.D., Ph.D. ERTY MANAGEMENT ASSISTANT documented in this encounter Plan of Treatment Not on file documented as of this encounter Visit Diagnoses Not on filedocumented in this encounter Additional Health Concerns Assessment Noted Time PHQ-9 Depression Total Score: 3 05/31/20 23 3:22 PM PROPERTY MANAGEMENT ASSISTANT documented as of this encounter Care Teams Angledozer Operator Relationship Specialty Start Date End Date Soham James M.D., Ph.D. [address] [place] [phone] PCP - General 12/22/16 documented as of this encounter
--- OUTSIDE RECORDS SUMMARY | 2023-11-15 10:28 | XMS_ITS | Encounter Summary ---
Author Name Unknown Organization [facility] Address [address] [place] [address] Care Team Providers Care Merchandising Execution Manager Name Role Phone Soham James M.D., Ph.D. Primary Care Provider Reason for Visit * Reason Onset Date Comments Med Question 09/17/2023 Encounter Details Date Type Department Care Team (Late st Contact Info) Description 09/17/2023 Nurse Triage Department of Family Medicine, [facility], in [address] [phone] Tracey Thompson R.N. [address] [place] [phone] Med Question Social History Tobacco [...] regarding Med Question. Assessment Concern: Sunita from [facility] pharmacy calls stating that patient called today to refill his Basaglar insulin because he is completely out. Reviewed medical record informed Sunita that an Rx was sent on 11/07/2022 which [facility] did not have. Verbal order provided to Sunita at [facility] The recommended disposition is Other. documented in this encounter Plan of Treatment Not on file documented as of this encounter Visit Diagnoses Not on filedocumented in this encounter Additional Health Concerns Assessment Noted Time PHQ-9 Depression Total Score: 3 05/31/20 23 3:22 PM AUDIT MGR documented as of this encounter Care Teams Merchandising Execution Manager Relationship Specialty Start Date End Date Soham James M.D., Ph.D. [address] [place] [phone] PCP - General 12/22/16 documented as of this encounter
--- OUTSIDE RECORDS SUMMARY | 2023-11-15 10:28 | XMS_ITS | Encounter Summary ---
Author Name Unknown Organization [facility] Address [address] [place] [address] Care Team Providers Care Piper Installer Name Role Phone Soham James M.D., Ph.D. Primary Care Provider Reason for Visit * Reason Comments Med Change Request Encounter Details Date Type Department Care Team (Late st Contact Info) Description 09/15/2023 Refill Department of Family Medicine, [facility], in [address] [phone] Soham James M.D., Ph.D. [address] [place] [phone] Med Change Request Social History Tobacco Use [...] Total Score: 3 05/31/20 23 3:22 PM CAR CARDER documented as of this encounter Care Teams Piper Installer Relationship Specialty Start Date End Date Soham James M.D., Ph.D. [address] [phone] PCP - General 12/22/16 documented as of this encounter
--- OUTSIDE RECORDS SUMMARY | 2023-11-15 10:28 | XMS_ITS | Encounter Summary ---
Author Name Unknown Organization [facility] Address [address] [place] [address] Care Team Providers Care Thread Cutter Name Role Phone Soham James M.D., Ph.D. Primary Care Provider Reason for Visit * Reason Onset Date Comments Form Review 08/22/2023 [employer] [facility] Order [id number] Encounter Details Date Type Department Care Team (Latest Contact Info) Description 08/22/2023 Clinical Communication Department of Family Medicine, [facility], in [address] [phone] Soham James M.D., Ph.D. [address] [place] [phone] Form Review ([employer] [facility] Order [id number] ) Social History Tobacco Use Types Packs/Day [...] back to facility and sent for scanning. JOCKEY * Telephone Encounter - Tracey Eng - 08/22/2023 11:26 AM CST Form was emailed to Dr. James for electronic review/signature. MAGNETIC DOCTOR: [facility] PHONE NUMBER: [phone] INFO REQUESTED: Order [id number] INSTRUCTIONS: Fax information to [phone] JOCKEY documented in this encounter Plan of Treatment Not on file documented as of this encounter Visit Diagnoses Not on filedocumented in this encounter Additional Health Concerns Assessment Noted Time PHQ-9 Depression Total Score: 3 05/31/20 23 3:22 PM YARD JOCKEY documented as of this encounter Care Teams Thread Cutter Relationship Specialty Start Date End Date Soham James M.D., Ph.D. [address] [place] [phone] PCP - General 12/22/16 documented as of this encounter
--- OUTSIDE RECORDS SUMMARY | 2023-11-15 10:28 | XMS_ITS | Encounter Summary ---
Author Name Unknown Organization [facility] Address [address] [place] [address] Care Team Providers Care Estimating Engineer Name Role Phone Soham James M.D., Ph.D. Primary Care Provider Reason for Visit * Reason Comments Med Change Request Encounter Details Date Type Department Care Team (Late st Contact Info) Description 08/23/2023 Refill Department of Family Medicine, [facility], in [address] [phone] Soham James M.D., Ph.D. [address] [place] [phone] Med Change Request Social History Tobacco [...] Total Score: 3 05/31/20 23 3:22 PM PACKAGING LINE OPERATOR documented as of this encounter Care Teams Estimating Engineer Relationship Specialty Start Date End Date Soham James M.D., Ph.D. [address] [place] [phone] PCP - General 12/22/16 documented as of this encounter
--- OUTSIDE RECORDS SUMMARY | 2023-11-15 10:28 | XMS_ITS | Encounter Summary ---
Author Name Unknown Organization [facility] Address [address] [place] [address] Care Team Providers Care Sheet Metal Pattern Cutter Name Role Phone Soham James M.D., Ph.D. Primary Care Provider Reason for Visit * Reason Onset Date Comments Form Review 10/23/2023 [facility] diabetic footwear Encounter Details Date Type Department Care Team (Latest Contact Info) Description 10/23/2023 Clinical Communication Department of Family Medicine, [facility], in [address] [phone] Soham James M.D., Ph.D. [address] [place] [phone] Form Review ([facility] diabetic footwear ) Social History Tobacco Use [...] Soham James M.D., Ph.D. for electronic review/signature. SPEEDER FRAME TENDER: [facility] PHONE NUMBER: [phone] INFO REQUESTED: diabetic footwear INSTRUCTIONS: Fax information to [phone] documented in this encounter Plan of Treatment Not on file documented as of this encounter Visit Diagnoses Not on filedocumented in this encounter Additional Health Concerns Assessment Noted Time PHQ-9 Depression Total Score: 5 10/11/19 24 9:23 PM CDT documented as of this encounter Care Teams Sheet Metal Pattern Cutter Relationship Specialty Start Date End Date Soham James M.D., Ph.D. [address] [place] [phone] PCP - General 12/22/16 documented as of this encounter
--- OUTSIDE RECORDS SUMMARY | 2023-11-15 10:28 | XMS_ITS | Encounter Summary ---
Author Name Unknown Organization [facility] Address [address] [place] [address] Care Team Providers Care Event Decorator And Designer Name Role Phone Soham James M.D., Ph.D. Primary Care Provider Reason for Visit * Reason Comments Med Change Request Encounter Details Date Type Department Care Team (Late st Contact Info) Description 08/30/2023 Refill Department of Family Medicine, [facility], in [address] [phone] Soham James M.D., Ph.D. [address] [place] [phone] Med Change Request Social History Tobacco [...] Total Score: 3 05/31/20 23 3:22 PM FLIGHT ENGINEER PERFORMANCE QUALIFIED documented as of this encounter Care Teams Event Decorator And Designer Relationship Specialty Start Date End Date Soham James M.D., Ph.D. [address] [place] [phone] PCP - General 12/22/16 documented as of this encounter
--- OUTSIDE RECORDS SUMMARY | 2023-11-15 10:28 | XMS_ITS | Referral Summary ---
Author Name Unknown Organization [facility] Address [address] [place] [address] Care Team Providers Care Edge Drummer Name Role Phone Soham James M.D., Ph.D. Primary Care Provider Source Comments Patient records contain information from all sites at [facility]. For routine questions regarding patient records, call [phone] during business hours, M-F 8:00 AM - 5:00 PM Central Time. Record requests for emergency care only can be directed to [phone] at any time.[facility] Encounters Date Type Department Care Team Description 11/06/2023 Clinical Communication Department of Family Medicine, [facility], [address] [phone] Soham James M.D., Ph.D. [facility] Form ([facility] (PT Outpatient Eval 11/02/23) 10/23/2023 Clinical Communication Department of Family [facility], [facility], in [address] [phone] Soham James M.D., Ph.D. Form Review ([facility]. diabetic footwear ) 10/18/2023 Clinical Communication Department of Family [facility], [facility], [address] [phone] Soham James M.D., Ph.D. 10/12/2023 Clinical Communication Department of Family [facility], [facility], in [address] [phone] Soham James M.D., Ph.D. PT Referral 10/11/2023 6:00 PM CDT Office Visit Department of Family [facility], [facility], [address] [address] Soham James M.D., Ph.D. 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 Diabetes Mellitus Type 2 With Diabetic Neuropathy (HCC) 09/17/2023 Nurse Triage Department of Family [facility], [facility], [address] [phone] Tracey Thompson R.N. Med Question 09/17/2023 Refill Department of [facility], [facility], [address] [phone] Soham James M.D., Ph.D. Med Refill 09/15/2023 Refill Department of Family Medicine, [facility], [address] [phone] Soham James M.D., Ph.D. Med Change Request 09/14/2023 Refill Department of [facility], [facility], [address] [address] Soham James M.D., Ph.D. Med Refill 09/14/2023 Clinical Communication Department of [facility], [facility], [address] [phone] Soham James M.D., Ph.D. 08/30/2023 Refill Department of [facility], [facility], [address] [phone] Soham James M.D., Ph.D. Med Change Request 08/23/2023 Refill Department of [facility], [facility], [address] [phone] Soham James M.D., Ph.D. Med Change Request 08/23/2023 Refill Department of [facility], [facility], [address] [address] Soham James M.D., Ph.D. Med Refill 08/22/2023 Clinical Communication Department of [facility], [address] [phone] Soham James M.D., Ph.D. Form Review ([facility] Order [id number] ) 08/21/2023 Clinical Communication Department of [facility], [address] [phone] Soham James M.D., Ph.D. Form Review ([facility] ( Order [id number]) 08/21/2023 Clinical Communication Department of [facility] Medicine, [facility], [address] [address] Soham James M.D., Ph.D. Form Review ([facility] - order [id number]) from Last 3 Months Allergies Active Allergy Reactions Criticality Noted Date Comments Esomeprazole Magnesium Nausea Only 11/12/2012 INCREASED ACID Penicillins Hives (Reselect Reaction) 04/15/2014 Iuzasbm-Qjz-Ihq Reductase Inhibitors Myalgia 04/15/2014 Medications Medication Sig Dispensed Refills Start Date End Date Status insulin syringe-needle U-100 1 mL 29 gauge x 1/2 syringe 11/10/2017 Active Accu-Chek Compact Plus Test strip USE TO TEST 3 TIMES DAILY 300 strip 3 07/22/2019 Active blood-glucose meter miscIndications:Rachael reese Mellitus Type 2 With Other Circulatory Complication [...] 7 (seven) days. 9 mL 3 10/11/2023 5 Active gabapentin (NEURONTIN) 100 mg capsuleIndications: Pain Neck Take 2 capsules (200 mg total) by mouth 3 (three) times a day for 14 days, THEN 3 capsules (300 mg total) 3 (three) times a day. 810 capsule 3 10/11/2023 5 Active DME CPAPIndications:Atomic Process Engineer ea Sleep Obstructive DME Order 1 each [...] Jul 2023 Venous Insufficiency Chronic Peripheral 07/30/19 20 Primary Central Sleep Apnea 06/25/2019 Apnea Sleep [...] - MODE RNA (12 YEARS AND OLDER) [id number] 05/12/2023 SARS-COV-2 (COVID-19) - MODERNA(Discontinued) SARS-COV-2 (COVID-19) [...] 177 cm (5' 9.69) 05/31/2023 2:47 PM ELASTIC ATTACHER OVERLOCK Body Mass Index 39.32 05/31/2023 2:47 PM ELASTIC ATTACHER OVERLOCK Plan of Treatment Not on file Medical Devices Implanted Type Area Film Rental Clerk Device Identifier Shelf Expiration Date Model / Serial / Lot Knee Implant- 0 Implanted:08/14 by Amrik Falcon M.D. (Quantity not on file) Knee Implant Knee Procedures Procedure Name Priority Date/Time Associated Diagnosis Comments HEMOGLOBIN A1C, B Routine 10/11/2023 7:1 2 PM CDT Diabetes Mellitus Type 2 With Diabetic Neuropathy (HCC) EXTI SODIUM, S/P Routine 07/05/2023 9:05 AM ELASTIC ATTACHER OVERLOCK EXTI BASIC METABOLIC PANEL, S/P Routine 07/04/2023 11:49 PM ELASTIC ATTACHER OVERLOCK EXTI THYROID-STIMULATI NG HORMONE-SENSITIVE (S-TSH), S Routine 06/19/2023 5:47 AM ELASTIC ATTACHER OVERLOCK ALBUMIN, RANDOM, U Routine 05/31/2023 2:26 PM ELASTIC ATTACHER OVERLOCK Diabetes Mellitus Type 2 With Diabetic Neuropathy [...] M.D., Ph.D. LAB BLOOD ADD-O N [facility] [address] [place] [address], [facility] CNFL [facility] [place] [address] * (ABNORMAL) Albumin, Random, Urine (05/31/2023 2:26 PM ELASTIC ATTACHER OVERLOCK) Microalbumin 53.8 mg/L 05/31/2023 2:48 PM ELASTIC ATTACHER OVERLOCK CNFL Creatinine 115 mg/dL 05/31/2023 2:48 PM ELASTIC ATTACHER OVERLOCK CNFL Albumin/Creatinin e Ratio 47(H) <17 mg/g 05/31/2023 2:48 PM ELASTIC ATTACHER OVERLOCK CNFL Urine (Urine, Midstream) 05/31/2023 2:26 PM ELASTIC ATTACHER OVERLOCK 05/31/2023 2:26 PM ELASTIC ATTACHER OVERLOCK Soham James M.D., Ph.D. LAB URINE ORDER [facility] [address] [place] [address], [facility] CNFL [facility] in [place] [id number] [place] [address] [address] [place] [address] * US Aorta AAA Screening (05/05/2020 10:41 [...] Nonreactive Nonreactive 10/09/2017 10:[address] [facility] Blood 10/06/2017 2:29 PM CDT 10/06/2017 9:44 PM CDT Narrative [facility] - 10/09/2017 10:35 AM CDT Specimen Information: Specimen ID: [id number] Specimen Type: Blood Specimen Collection Start Date: 10/06/2017 ??2:29 PM Specimen Received Date: 10/06/2017 ??9:44 PM Specimen ID: [id number] Specimen Type: Blood Specimen Collection Start Date: 10/06/2017 ??2:29 PM Specimen Received Date: 10/06/2017 ??9:44 PM Soham James M.D., Ph.D. LAB MICROBIOLOG Y - BLOOD ORDERABLES [facility] [address] from Last 3 Months or Most Recently Relevant to Health Maintenance Care Teams Edge Drummer Relationship Specialty Start Date End Date Soham James M.D., Ph.D. [address] [place] [phone] PCP - General 12/22/16
--- OUTSIDE RECORDS SUMMARY | 2023-11-15 10:28 | XMS_ITS | Encounter Summary ---
Author Name Unknown Organization [facility] Address [address] [place] [address] Care Team Providers Care Production Hand Name Role Phone Soham James M.D., Ph.D. Primary Care Provider Reason for Visit * Reason Comments Med Refill Encounter Details Date Type Department Care Team (Late st Contact Info) Description 09/17/2023 Refill Department of Family Medicine, [facility], in [address] [phone] Soham James M.D., Ph.D. [address] [place] [phone] Med Refill Social History Tobacco Use Types [...] Total Score: 3 05/31/20 23 3:22 PM PEER HEALTH PROMOTER documented as of this encounter Care Teams Production Hand Relationship Specialty Start Date End Date Soham James M.D., Ph.D. [address] [place] [phone] PCP - General 12/22/16 documented as of this encounter
--- OUTSIDE RECORDS SUMMARY | 2023-11-15 10:28 | XMS_ITS | Encounter Summary ---
Author Name Unknown Organization [facility] Address [address] [place] [address] Care Team Providers Care Hematology Oncology Consultant Name Role Phone Soham James M.D., Ph.D. Primary Care Provider Reason for Referral * Outpatient (Routine) - Authorized Specialty Diagnoses / Procedures Referred By Rj rush Referred To Contact Diagnoses Pain Neck Pain Shoulder Right Soham James M.D., Ph.D. [address] [place] [phone] External, Referring Provider Referral ID Status Reason Start Date Expiration Date Visits Requested Visits Authorized [id number] Authorized Patient Preference 10/11/2023 04/11/2025 1 1 Reason for Visit * Reason Comments Chronic Disease Management Follow up had heart attack/stroke. Would like to restart Ozempic * Appointment Request (Routine) - Closed Specialty Diagnoses / Procedures Referred By Rj rush Referred To Contact Family Medicine Referral ID Status Reason Start Date Expiration Date Visits Re quested Visits Authorized [id number] Closed 07/20/2023 07/19/2024 1 1 Encounter Details Date Type Department Care Team (Latest Contact Info) Description 10/11/2023 6:00 PM CDT Office Visit Department of Family Medicine, [facility], in [address] [phone] Soham James M.D., Ph.D. [address] [place] [phone] Coronary Artery Disease With Stable Angina [...] Body Mass Index 39.32 05/31/2023 2:47 PM STATION EXAMINER documented in this encounter Progress Notes * [...] on his right foot, treating with the [facility] wound clinic (on antibiotics, improving, but blood [...] Mellitus Type 2 With Other Circulatory Complication ([facility]) Pain Neck - External referral ancillary ([facility]) - gabapentin (NEURONTIN) 100 mg capsule; Take 2 capsules (200 mg total) by mouth 3 (three) times a day for 14 days, THEN 3 capsules (300 mg total) 3 (three) times a day. Pain Shoulder Right - External referral ancillary ([facility]) Other orders - semaglutide (OZEMPIC) 2 mg/dose [...] James M.D., Ph.D. LAB BLOOD ADD-O N [facility] [address] [place] [address], [facility] in [address] [address] documented in this encounter Visit Diagnoses Diagnosis [...] documented as of this encounter Care Teams Hematology Oncology Consultant Relationship Specialty Start Date End Date Soham James M.D., Ph.D. [address] [place] [phone] PCP - General 12/22/16 documented as of this encounter
--- OUTSIDE RECORDS SUMMARY | 2023-11-15 10:28 | XMS_ITS | Encounter Summary ---
Author Name Unknown Organization [facility] Address [address] [place] [address] Care Team Providers Care [employer] Advisor Name Role Phone Soham James M.D., Ph.D. Primary Care Provider Reason for Visit * Reason Comments Med Refill Encounter Details Date Type Department Care Team (Late st Contact Info) Description 08/23/2023 Refill Department of Family Medicine, [facility], in [address] [phone] Soham James M.D., Ph.D. [address] [place] [phone] Med Refill Social History Tobacco Use [...] renew or reject as appropriate. Thank you. URE PAINTER documented in this encounter Plan of Treatment Not on file documented as of this encounter Visit Diagnoses Diagnosis Diabetes Mellitus Type 2 With Diabetic Neuropathy (HCC) documented in this encounter Additional Health Concerns Assessment Noted Time PHQ-9 Depression Total Score: 3 05/31/20 23 3:22 PM PICTURE PAINTER documented as of this encounter Care Teams [employer] Advisor Relationship Specialty Start Date End Date Soham James M.D., Ph.D. [address] [place] [phone] PCP - General 12/22/16 documented as of this encounter
--- OUTSIDE RECORDS SUMMARY | 2023-11-15 10:28 | XMS_ITS | Encounter Summary ---
Author Name Unknown Organization [facility] Address [address] [place] [address] Care Team Providers Care Preconstruction Manager Name Role Phone Soham James M.D., Ph.D. Primary Care Provider Reason for Visit * Reason Onset Date Comments Form Review 08/21/2023 [facility] ( Order [id number] Encounter Details Date Type Department Care Team (Latest Contact Info) Description 08/21/2023 Clinical Communication Department of Family Medicine, [facility], in [address] [phone] Soham James M.D., Ph.D. [address] [place] [phone] Form Review ([facility] ( Order [id number]) Social History Tobacco Use Types Packs/Day Years [...] back to the listed facility. Scanned into [facility] GER TRAFFIC * Telephone Encounter - Jacki Sparrow - 08/21/2023 3:36 PM CST Form was emailed to Soham James MD for electronic review/signature. COMPLIANCE ATTORNEY: [facility] PHONE NUMBER: [phone] INFO REQUESTED: Order [id number] INSTRUCTIONS: Fax information to [phone] GER TRAFFIC documented in this encounter Plan of Treatment Not on file documented as of this encounter Visit Diagnoses Not on filedocumented in this encounter Additional Health Concerns Assessment Noted Time PHQ-9 Depression Total Score: 3 05/31/20 23 3:22 PM MANAGER TRAFFIC documented as of this encounter Care Teams Preconstruction Manager Relationship Specialty Start Date End Date Soham James M.D., Ph.D. [address] [place] [phone] PCP - General 12/22/16 documented as of this encounter
--- OUTSIDE RECORDS SUMMARY | 2023-11-15 10:28 | XMS_ITS | Encounter Summary ---
Author Name Unknown Organization [facility] Address [address] [place] [address] Care Team Providers Care Trapeze Performer Name Role Phone Soham James M.D., Ph.D. Primary Care Provider Reason for Visit * Reason Onset Date Comments PT Referral 10/12/2023 Encounter Details Date Type Department Care Team (Late st Contact Info) Description 10/12/2023 Clinical Communication Department of Family Medicine, [facility], in [address] [phone] Soham James M.D., Ph.D. [address] [place] [phone] PT Referral Social History Tobacco Use [...] documented as of this encounter Care Teams Trapeze Performer Relationship Specialty Start Date End Date Soham James M.D., Ph.D. [address] [phone] PCP - General 12/22/16 documented as of this encounter
--- OUTSIDE RECORDS SUMMARY | 2023-11-15 10:28 | XMS_ITS | Encounter Summary ---
Author Name Unknown Organization [facility] Address [address] [place] [address] Care Team Providers Care Cold Roller Name Role Phone Soham James M.D., Ph.D. Primary Care Provider Reason for Referral * Medication Prior Authorization - Closed Specialty Diagnoses / Procedures Referred By Contac t Referred To Contact Diagnoses Diabetes Mellitus Type 2 With Diabetic Neuropathy (HCC) Soahm James M.D., Ph.D. [address] [place] [phone] Referral ID Status Reason Start Date Expiration Date Visits Re quested Visits Authorized [id number] Closed 1 1 Encounter Details Date Type Department Care Team (Late st Contact Info) Description 10/18/2023 Clinical Communication Department of Family Medicine, [facility], in [address] [phone] Soham James M.D., Ph.D. [address] [place] [phone] Social History Tobacco Use Types Packs/Day [...] documented as of this encounter Care Teams Cold Roller Relationship Specialty Start Date End Date Soham James M.D., Ph.D. [address] [place] [phone] PCP - General 12/22/16 documented as of this encounter
--- OUTSIDE RECORDS SUMMARY | 2023-11-15 10:28 | XMS_ITS | Encounter Summary ---
Author Name Unknown Organization [facility] Address [address] [place] [address] Care Team Providers Care Promotion Producer Name Role Phone Soham James M.D., Ph.D. Primary Care Provider Reason for Visit * Reason Onset Date Comments Form Review 08/11/2023 [facility] ( Order [id number] Encounter Details Date Type Department Care Team (Latest Contact Info) Description 08/11/2023 Clinical Communication Department of Family Medicine, [facility], in [address] [phone] Soham James M.D., Ph.D. [address] [place] [phone] Form Review ([facility] ( Order [id number]) Social History Tobacco Use Types Packs/Day Years [...] to the listed facility. Scanned into [facility] UM REGISTRAR * Telephone Encounter - Jacki Sparrow - 08/11/2023 9:38 AM CST Form was emailed to Soham James MD for electronic review/signature. BOTTOM SCRUBBER: [facility] PHONE NUMBER: [phone] INFO REQUESTED: Order [id number] INSTRUCTIONS: Fax information to [phone] UM REGISTRAR documented in this encounter Plan of Treatment Not on file documented as of this encounter Visit Diagnoses Not on filedocumented in this encounter Additional Health Concerns Assessment Noted Time PHQ-9 Depression Total Score: 3 05/31/20 23 3:22 PM MUSEUM REGISTRAR documented as of this encounter Care Teams Promotion Producer Relationship Specialty Start Date End Date Soham James M.D., Ph.D. [address] [place] [phone] PCP - General 12/22/16 documented as of this encounter
--- OUTSIDE RECORDS SUMMARY | 2023-11-15 10:28 | XMS_ITS | Encounter Summary ---
Author Name Unknown Organization [facility] Address [address] [place] [address] Care Team Providers Care In Flight Refueling System Repairer Name Role Phone Soham James M.D., Ph.D. Primary Care Provider Reason for Visit * Reason Onset Date Comments Form Review 08/21/2023 [facility] kay [id number] Encounter Details Date Type Department Care Team (Latest Contact Info) Description 08/21/2023 Clinical Communication Department of Family Medicine, [facility], in [address] [phone] Soham James M.D., Ph.D. [address] [place] [phone] Form Review ([facility] - order [id number]) Social History Tobacco Use Types Packs/Day Years [...] back to the listed facility. Scanned into [facility] CARETAKER * Telephone Encounter - Ivonne Rivera - 08/21/2023 12:40 PM CST Form was emailed to Dr James for electronic review/signature. ASSEMBLER WIRE GROUP: [facility] PHONE NUMBER: [phone] INFO REQUESTED: order [id number] INSTRUCTIONS: Fax information to [phone] CARETAKER documented in this encounter Plan of Treatment Not on file documented as of this encounter Visit Diagnoses Not on filedocumented in this encounter Additional Health Concerns Assessment Noted Time PHQ-9 Depression Total Score: 3 05/31/20 23 3:22 PM ZOO CARETAKER documented as of this encounter Care Teams In Flight Refueling System Repairer Relationship Specialty Start Date End Date Soham James M.D., Ph.D. [address] [place] [phone] PCP - General 12/22/16 documented as of this encounter
--- OUTSIDE RECORDS SUMMARY | 2023-11-15 10:29 | XMS_ITS | Clinical Summary ---
Author Name Unknown Organization [facility] Address [address] [place] [address] Care Team Providers Care Cash Application Representative Name Role Phone Soham James MD Primary Care Provider [phone] Allergies Active Allergy Reactions Criticality Noted Date [...] Comments Blood Pressure 118/67 08/07/2018 9:20 AM [employer]ARD[employer] WORKERS Pulse 64 08/07/2018 9:20 AM [employer] Temperature 36.6 ??C (97.9 ??F) 08/21/2012 8:20 AM CS T Respiratory Rate 20 08/07/2018 9:30 AM [employer] Oxygen Saturation 91% 08/07/2018 9:27 AM [employer] Inhaled Oxygen Concentration - - Weight 124.7 kg (275 lb) 08/07/2018 7:52 AM [employer] Height 177.8 cm (5' 10) 08/07/2018 7:52 AM [employer]ARD[employer] Body Mass Index 39.46 08/07/2018 7:52 AM [employer] Plan of Treatment Health Maintenance Due Date [...] Diagnosis Comments COLONOSCOPY Routine 08/07/2018 8:13 AM [employer]ARD[employer] WORKERS GLUCOSE BY METER Routine 08/21/2012 7:19 AM [employer] WORK[employer] from Last 3 Months or Most Recently Relevant to Health Maintenance Results * COLONOSCOPY (08/07/2018 8:13 AM [employer]ARD[employer] WORK[employer]) Pathologist [facility] COLONOSCOPY [facility] Endoscopy Department ___ Patient Name: Shin Best ? Procedure Date: 08/07/2018 8:13 AM ? Date of : 1945 ? Admit Type: Outpatient Age: 73 ? Room: 3 Note Status: Finalized ?Attending MD: Abraham Milner , Total Sedation Time: 41 mins of continuous bedside 1:1 Instrument Name: 325 [id number] AdultColonoscope ___ Procedure: ?Colonoscopy Indications: ?Screening for [...] Procedure Code(s): ? --- Professional --- ? 16011, Colonoscopy, flexible; with removal of tumor(s), polyp(s), or ? other lesion(s) by snare technique Diagnosis Code(s): ? --- Professional --- ? Z12.11, Encounter for screening for malignant neoplasm of colon ? K62.1, Rectal polyp CPT copyright 2017 [employer]. All rights reserved. The codes documented in this report are preliminary and upon remote coders review may be revised to meet current compliance requirements. Abraham Milner, 08/07/2018 9:10:30 AM I was physically present for the entire viewing portion of the exam. Abraham Milner Number of Addenda: 0 Note Initiated On: 08/07/2018 8:13 AM MRN: ?[id number] Procedure Date: ? 08/07/2018 8:13:49 AM Scope Withdrawal Time: 0 hours 13 minutes 27 seconds Total Procedure Duration: 0 hours 40 minutes 58 seconds Estimated Blood Loss: ? Scope In: 8:20:39 AM Scope Out: 9:01:37 AM RADIOLOGY RESULTS 08/07/2018 8:13 AM [employer] Soham James MD PROCEDURES RADIOLOGY RESULTS * Glucose by meter (08/21/2012 7:19 AM [employer]) Glucose 79 60 - 99 mg/dL POINT OF CARE TEST, GLUCOSE Comment:Dr/RN Notified 08/21/2012 7:19 AM [employer] 08/21/2012 7:25 AM [employer] Stacy Ayers MD LAB - BEAKER POCT POINT OF CARE TEST, GLUCOSE from Last 3 Months or Most Recently Relevant to Health Maintenance Insurance Payer Benefit Plan / Group Subscriber ID Effective Dates Phone Address Type [place] [id number] 2018-Pr miguel nt [address] [address] [place] [address] Indemnity MEDICARE MEDICARE [id number] 2012-Pres ent ATTN CLAIMS [address] [place] [address] Medicare Care Teams Cash Application Representative Relationship Specialty Start Date End Date Soham James MD [facility] [address] [place] [address] PCP - General Family Practice 07/25/12
--- OUTSIDE RECORDS SUMMARY | 2023-11-15 10:29 | XMS_ITS | Referral Summary ---
Author Name Unknown Organization [place] Address [address] [place] [address] Care Team Providers Care Web Site Designer Name Role Phone Soham James MD Primary Care Provider [phone] Allergies Active Allergy Reactions Criticality Noted Date [...] Comments Blood Pressure 118/67 08/07/2018 9:20 AM MARKETING ADMIN Pulse 64 08/07/2018 9:20 AM MARKETING ADMIN Temperature 36.6 ??C (97.9 ??F) 08/21/2012 8:20 AM CS T Respiratory Rate 20 08/07/2018 9:30 AM MARKETING ADMIN Oxygen Saturation 91% 08/07/2018 9:27 AM MARKETING ADMIN Inhaled Oxygen Concentration - - Weight 124.7 kg (275 lb) 08/07/2018 7:52 AM MARKETING ADMIN Height 177.8 cm (5' 10) 08/07/2018 7:52 AM MARKETING ADMIN Body Mass Index 39.46 08/07/2018 7:52 AM MARKETING ADMIN Plan of Treatment Not on file Procedures Procedure Name Priority Date/Time Associated Diagnosis Comments COLONOSCOPY Routine 08/07/2018 8:13 AM MARKETING ADMIN GLUCOSE BY METER Routine 08/21/2012 7:19 AM MARKETING ADMIN from Last 3 Months or Most Recently Relevant to Health Maintenance Results * COLONOSCOPY (08/07/2018 8:13 AM MARKETING ADMIN) [facility] COLONOSCOPY [facility] Endoscopy Department ___ Patient Name: Shin Best ? Procedure Date: 08/07/2018 8:13 AM ? Date of : 1945 ? Admit Type: Outpatient Age: 73 ? Room: 3 Note Status: Finalized ?Attending MD: Abraham Milner , Total Sedation Time: 41 mins of continuous bedside 1:1 Instrument Name: 325 [id number] AdultColonoscope ___ Procedure: ?Colonoscopy Indications: ?Screening for [...] Procedure Code(s): ? --- Professional --- ? 52689, Colonoscopy, flexible; with removal of tumor(s), polyp(s), or ? other lesion(s) by snare technique Diagnosis Code(s): ? --- Professional --- ? Z12.11, Encounter for screening for malignant neoplasm of colon ? K62.1, Rectal polyp CPT copyright 2017 [employer]. All rights reserved. The codes documented in this report are preliminary and upon surgical coder review may be revised to meet current compliance requirements. Abraham Milner, 08/07/2018 9:10:30 AM I was physically present for the entire viewing portion of the exam. Abraham Milner Number of Addenda: 0 Note Initiated On: 08/07/2018 8:13 AM MRN: ?[id number] Procedure Date: ? 08/07/2018 8:13:49 AM Scope Withdrawal Time: 0 hours 13 minutes 27 seconds Total Procedure Duration: 0 hours 40 minutes 58 seconds Estimated Blood Loss: ? Scope In: 8:20:39 AM Scope Out: 9:01:37 AM RADIOLOGY RESULTS 08/07/2018 8:13 AM MARKETING ADMIN Soham James MD PROCEDURES RADIOLOGY RESULTS * Glucose by meter (08/21/2012 7:19 AM MARKETING ADMIN) Glucose 79 60 - 99 mg/dL POINT OF CARE TEST, GLUCOSE Comment:Dr/RN Notified 08/21/2012 7:19 AM MARKETING ADMIN 08/21/2012 7:25 AM MARKETING ADMIN Stacy Ayers MD [facility] POCT POINT OF CARE TEST, GLUCOSE from Last 3 Months or Most Recently Relevant to Health Maintenance Care Teams Web Site Designer Relationship Specialty Start Date End Date Soham James MD [facility] [address] [place] [address] PCP - General Family Practice 07/25/12
--- OUTSIDE RECORDS SUMMARY | 2023-11-15 10:29 | XMS_ITS | Encounter Summary ---
Author Name Unknown Organization [place] Address [address] [place] [address]. [place] [address] Care Team Providers Care Systems Software Specialist Name Role Phone Soham James MD Primary Care Provider [phone] Encounter Details Date Type Department Care Team (Late st Contact Info) Description 2023 Telephone [facility] Podiatry [address] [place], [place] [address] Piper Castanon, [place], Podiatry/Foot and Ankle Surgery [address] [facility] [address] [place], [place] [address] Social History Tobacco Use Types Packs/Day Years [...] encounter Miscellaneous Notes * Telephone Encounter - DerrekaniasruthiMark - 2023 9:27 AM CST Consent to communicate found on file. Spoke with patient about scheduling him due to the referral we received from Dr. Soham James ([facility]) via fax this morning. Scheduled patient to see Dr. Castanon on June 20 in [place]. Patient requested the building address be sent to him via mail, so a letter was sent out. Patient was appreciative of the call. Dionte Rodrigez, Visit Ground Operations Crew Member [employer] documented in this encounter Plan of Treatment Not on file documented as of this encounter Visit Diagnoses Not on filedocumented in this encounter Care Teams Systems Software Specialist Relationship Specialty Start Date End Date Soham James MD [facility] [address] [place] [address] PCP - General Family Practice 07/25/12 documented as of this encounter
== END 2023-11-15 10:25 | disposition home or self-care (01) ==
LOC: WOUND 10:24
PROVIDERS: PCP Family Medicine; Visit Provider Surgery
DX: E11.621 Type 2 diabetes mellitus with foot ulcer (principal); L97.512 Non-pressure chronic ulcer of other part of right foot with fat layer exposed; Z79.4 Long term (current) use of insulin
CPT/HCPCS: 97597

== ENCOUNTER 2023-11-22 10:27 | Outpatient (CLI) | payer MEDICARE, BC, SELFPAY ==
--- OUTSIDE RECORDS SUMMARY | 2023-11-22 10:29 | XMS_ITS | Continuity of Care Document ---
Author Name Unknown Organization [facility] Address [address] [place] [address] Phone Care Team Providers Care Sleeve Fixer Name Role Phone Roshni Rousseau DPT Unavailable [...] times every day 75 MG - Active amlodipine 5 mg tablet take 1 tablet by oral route every day 5 MG - Active celecoxib 200 mg capsule take 1 capsule by oral route 2 times every day as needed 200 MG - Active clopidogrel 75 mg tablet take 1 tablet by oral route every day 75 MG - Active duloxetine 60 mg capsule,delayed release take 1 capsule by oral route every day 60 MG - Active Novolin R FlexPen 100 unit/mL (3 mL) subcutaneous insulin pen - Active levothyroxine 100 mcg capsule take 1 capsule by oral route every day 100 MCG - Active losartan 100 mg tablet take 1 tablet by oral route every day 100 MG - Active metformin 500 mg tablet take 1 tablet by oral route 2 times every day with morning and evening meals 500 MG - Active Procedures Procedure Date PT Eval - High Complexity Neuromuscular Re-education Psychiatric Diagnostic Evaluation Teleph one Only Est Pt Eval New Pt Eval 45 Min Advance Directives Directive Yes / No Effective Date File Name No Information Encounters Encounter Description Practice Location Reason(s) For Visit Diagnoses Date Provider Providers Copied on Encounter RAJIV Hughes, [address], [place], [place], [id number], [place] tel:[phone] [place] [facility] No Information 3 Soham Barakat. [address], [place], [address], [place]. tel:[phone] RAJIV Hughes, [address], [place], [place], [id number], [place] tel:[phone] [facility] Spinal stenosis, lumbar region with neurogenic claudicationRadic ulopathy, lumbar regionType 2 diabetes mellitus with diabetic neuropathy, unsp 3 Soham Barakat. [address], [address], [place], [address], [place]. tel:[phone] Referring Provider: Laron Basurto, [address], [place], [address] . tel:[phone] Psychiatric Diagnostic Evaluation Telephone Only RAJIV Hughes, [address], [place], [place], [id number], [place] tel:[phone] [facility] Pain disorder with related psychological factors 3 Selwyn Pabon. [address], [place], [address], [place]. tel:[phone] Referring Provider: Laron Basurto, [address], [place], [address] . tel:[phone] [facility], [address], [place], [place], [id number], [place] tel:[phone] [facility] Spinal stenosis, lumbar region with neurogenic claudicationRadic ulopathy, lumbar region 3 Foster Sam. [address], [place], [address], [place]. tel:[phone] Referring Provider: Laron Basurto, [address], [place], [address] . tel:[phone] Est Pt Eval [facility], [address], [place], [place], [id number], [place] tel:[phone] [facility] back pain (chief complaint) Spinal stenosis, lumbar region with neurogenic claudicationType 2 diabetes mellitus w/ diabetic neuropathyRadicul opathy, lumbar regionBody mass index (BMI) 40.0-44.9, adult 3 [place] Sam. [address], [place], [address], [place]. tel:[phone] Referring Provider: Laron Basurto, [address], [place], [address] . tel:[phone] New Pt Eval 45 Min [facility], [facility], [address], [place], [place], [id number], [place] tel:[phone] [facility] back pain (chief complaint) Body mass index (BMI) 40.0-44.9, adultSpinal stenosis, lumbar region with neurogenic claudicationRadic ulopathy, lumbar regionType 2 diabetes mellitus w/ diabetic neuropathy 3 Foster Sam. [address], [place], [address], [place]. tel:[phone] Referring Provider: Laron Basurto, [address], [place], [address] . tel:[phone] Family History Family Member Type Diagnosis Age At Onset No Information Payers Payer name Insurance type Covered republican ID Bernice galicia(s) Medicare Part B AKUA [id number] [employer] [id number] Social History Type Description Quantity Date Captured [...] Information Instructions Date Instruction Additional Infor mation Same plan of care as statement for above diagnosis, no changes Related to Radiculopathy, lumbar region - Schedule implant e valuation with physical therapy- Schedule implant evaluation with behavioral health- Prior authorization is in progress for MILD procedure, schedule when able- No RILEY follow up required Related to Spinal stenosis, lumbar region with neurogenic claudication - Prior authorizatio n in progress for spinal cord stimulator trial Related to Type 2 diabetes mellitus w/ diabetic neuropathy Giving encouragement to exercise Related to Body mass index [BMI] 40.0-44.9, adult -Consider spinal cor d stimulation, literature provided today Related to Type 2 diabetes mellitus w/ diabetic neuropathy Same plan of care as statement for above diagnosis, no changes Related to Radiculopathy, lumbar region -Requested medical r ecords from [facility] ([place])-Order MRI of the lumbar spine at [facility]-Order lateral flexion vs extension x ray of the lumbar spine at [facility]-Order stationary neutral A/P and lateral views x rays at [facility]-Pending imaging, consider MILD (Minimally Invasive Lumbar Decompression) and [place] procedures, literature provided today-Follow up after imaging with Dr. Hammond, [facility] [place] Related to Spinal stenosis, lumbar region with neurogenic claudication Lifestyle education regarding di et Related to Body mass index [BMI] 40.0-44.9, adult Lifestyle education regarding di et Related to Body mass index [BMI] 40.0-44.9, adult Assessments Type Assessment Date No Information Patient Care Teams Name Effective Dates (start - stop) Status Members No Information
--- OUTSIDE RECORDS SUMMARY | 2023-11-22 10:29 | XMS_ITS | Clinical Summary ---
Author Name Unknown Organization [facility] Address [place], [place] [address] Care Team Providers Care Platform Architect Name Role Phone Soham James MD Primary Care Provider [phone] Hao Drew MD Unavailable [phone] Allergies Active Allergy Reactions Criticality Noted Date Comments Esomeprazole Magnesium Nausea Only 11/12/2012 INCREASED ACID Penicillins Hives 04/15/2014 Jymlmop-Mtb-Loe Reductase Inhibitors Nausea Only,Myalgia 04/15/2014 Medications Medication [...] 05/05/2015 Hyperlipidemia 05/05/2015 CAD (coronary artery disease), [place] coronary a rtery 10/30/2014 Systolic murmur 09/29/2014 [...] Department Care Team Description 10/06/2023 Lab Requisition [facility] [phone] Jessica Barrow MD 10/05/2023 9:48 AM CDT - 10/05/2023 11:59 PM CDT [facility] [address] [place] [address] [address] [place] [address] Zeny Isaac, Samina Nolasco, PT Left without seen 10/05/2023 Travel 10/03/2023 Patient Outreach [facility] [address] [place] [address] Bess Conroy Brain Injury Re[facility] Care Coordination - [facility] 09/22/2023 Telephone [facility] [address] [place] [address] Hao Drew MD Results 09/21/2023 10:36 AM CDT - 09/21/2023 11:59 PM CDT Hospital Encounter [facility] [address] [place] [address] Zeny Isaac NP Bradshaw, Emily, PT 09/21/2023 Travel 09/14/2023 10:43 AM LABORATORY CHEMICAL ASSISTANT - 09/14/2023 11:59 PM LABORATORY CHEMICAL ASSISTANT Hospital Encounter [facility] [address] [place] [address] Zeny Isaac NP Bradshaw, Emily, PT 09/14/2023 Travel 09/07/2023 10:40 AM LABORATORY CHEMICAL ASSISTANT - 09/07/2023 11:59 PM LABORATORY CHEMICAL ASSISTANT Hospital Encounter [facility] [address] [place] [address] Zeny Isaac NP Bradshaw, Emily, PT 09/07/2023 Travel 09/06/2023 Telephone [facility] [address] [place] [address] Zeny Isaac NP CASEWORK SPECIALIST ASSESSMENT 08/31/2023 Telephone [facility] [address] [place] [address] Zeny Isaac NP No Driving (No driving until BTW) 08/31/2023 Orders Only [facility] [address] [place] [address] Zeny Isaac NP <No scans attached> 08/29/2023 2:07 PM LABORATORY CHEMICAL ASSISTANT - 08/29/2023 11:59 PM LABORATORY CHEMICAL ASSISTANT Hospital Encounter [facility] [address] [place] [address] Zeny Isaac, MOSES Acute CVA (cerebrovascular accident) (HC) 08/28/2023 1:47 PM LABORATORY CHEMICAL ASSISTANT - 08/28/2023 11:59 PM LABORATORY CHEMICAL ASSISTANT Hospital Encounter [facility] [address] [place] [address] Zeny Isaac, Mary Lo H, PT Acute CVA (cerebrovascular accident) (HC) 08/28/2023 Travel from Last 3 Months Immunizations Name Administration [...] Comments Blood Pressure 130/70 08/17/2023 10:43 AM LABORATORY CHEMICAL ASSISTANT Pulse 67 08/17/2023 10:43 AM LABORATORY CHEMICAL ASSISTANT Temperature 36.7 ??C (98.1 ??F) 08/17/2023 10:[address] Respiratory Rate 20 08/17/2023 10:43 AM LABORATORY CHEMICAL ASSISTANT Oxygen Saturation 100% 08/17/2023 10:43 AM LABORATORY CHEMICAL ASSISTANT Inhaled Oxygen Concentration - - Weight 120.2 kg (265 lb) 07/31/2023 10:43 AM LABORATORY CHEMICAL ASSISTANT Height 180.3 cm (5' 11) 07/31/2023 10:43 AM LABORATORY CHEMICAL ASSISTANT Body Mass Index 36.96 07/31/2023 10:43 AM LABORATORY CHEMICAL ASSISTANT Plan of Treatment Health Maintenance Due Date [...] 9, 08/18/2008 Medical Devices Implanted Type Area Mid Level Game Designer Device Identifier Shelf Expiration Date Model / Serial / Lot Cmnt Bone Simplex Hv Gentamicin - [id number] Implanted:Qty: 2 on 04/28/2014 by Amrik Falcon MD at [facility] Left: Knee [employer] 11/06/2014 6195-1-001 # / / [id number] Patella [id number] Triathlon Asymmetric X3 - [id number] Implanted:Qty: 1 on 04/28/2014 by Amrik Falcon MD at [facility] Left: Knee [employer] 02/06/2019 5551-G-350 # / / [id number] Fem Lt Sz7 Triathlon Post Stbznon Pors - [id number] Implanted:Qty: 1 on 04/28/2014 by Amrik Falcon MD at [facility] Left: Knee [employer] 02/06/2018 5515-F-701 # / / [id number] Baseplate Tib Sz6 Triathlon Pe - [id number] Implanted:Qty: 1 on 04/28/2014 by Amrik Falcon MD at [facility] Left: Knee [employer] 12/07/2018 5521-B-600 # / / KRDE Insert Knee Sz6 11mm Triathlonpost Stbz X3 - [id number] Implanted:Qty: 1 on 04/28/2014 by Amrik Falcon MD at [facility] Left: Knee [employer] 02/06/2019 5532-G-611 # / / [id number] Triathlon X3 Asymmetric Patella L37p00rk - [id number] Implanted:Qty: 1 on 08/14/2019 by Amrik Falcon MD at [facility] Right: Knee [employer] 02/19/2024 5551-G-381 -E / / [id number] Triathlon X3 Tibial Bearing Insert Cs Valery 5 Typ Cs Thkns 11mm - [id number] Implanted:Qty: 1 on 08/14/2019 by Amrik Falcon MD at [facility] Right: Knee [employer] 03/24/2024 5531-G-511 -E / / [id number] Cmnt Bone Simplex Hv - [id number] Implanted:Qty: 1 on 08/14/2019 by Amrik Falcon MD at [facility] Right: Knee [employer] 12/07/2020 6194-1-001 # / / [id number] Cmnt Bone Simplex Hv Gentamicin - [id number] Implanted:Qty: 1 on 08/14/2019 by Amrik Falcon MD at [facility] Right: Knee [employer] 06/08/2020 6195-1-001 # / / [id number] Fem Rt Sz6 Triathlon Cruc Ret Co Cr - [id number] Implanted:Qty: 1 on 08/14/2019 by Amrik Falcon MD at [facility] Right: Knee [employer] 01/11/2024 5510-F-602 # / / [id number] Baseplate Tib Sz5 Triathlon Pe - [id number] Implanted:Qty: 1 on 08/14/2019 by Amrik Falcon MD at [facility] Right: Knee [employer] 04/17/2024 5521-B-500 # / / [id number] Procedures Procedure Name Priority Date/Time Associated Diagnosis Comments REFERRAL ID/SUSC,NONURINE Routine 10/06/2023 11:30 AM CDT EXTENDED HOLTER Routine 09/20/2023 Paroxysmal atrial fibrillation (HC) from Last 3 Months Results * (ABNORMAL) REFERRAL ID/SUSC,NONURINE (10/06/2023 11:30 AM CDT) CULTURE RESULT(A) 10/10/2023 10:37 AM CDT [facility] CULTURE Streptococcus anginosus 10/10/2023 10:37 AM CDT [facility] Other Client Collect / Unknown 10/06/2023 11:30 AM CDT 10/06/2023 9:05 PM CDT Narrative Organism Antibiotic Method Susceptibility Streptococcus anginosus PENICILLIN <=0.06: S Streptococcus anginosus ERYTHROMYCIN R Streptococcus anginosus CLINDAMYCIN R Streptococcus anginosus VANCOMYCIN S Streptococcus anginosus CLARITHROMYCIN R Jessica Barrow MD MICROBIOLOGY [facility] [address] [place] [address], * EXTENDED HOLTER (09/20/2023) Hao Drew MD [...] 11:50 PM 08/09/2018 3:08 PM Care Teams Platform Architect Relationship Specialty [place] [address] [address] PCP - General Family Practice 04/10/14 Hao Drew MD [address] [facility] [address] [place] [address] Cardiology Cardiovascular Disease 12/30/19
--- OUTSIDE RECORDS SUMMARY | 2023-11-22 10:30 | XMS_ITS | Referral Summary ---
Author Name Unknown Organization [facility] Address [address] [place] [address] Care Team Providers Care Mannequin Molder Name Role Phone Soham James M.D., Ph.D. Primary Care Provider Source Comments Patient records contain information from all sites at [facility]. For routine questions regarding patient records, call [phone] during business hours, M-F 8:00 AM - 5:00 PM Central Time. Record requests for emergency care only can be directed to [phone] at any time.[facility] Encounters Date Type Department Care Team Description 11/06/2023 Clinical Communication Department of Family Medicine, [facility], [address] [phone] Soham James M.D., Ph.D. [facility] Form ([facility] (PT Outpatient Eval 11/02/23) 10/23/2023 Clinical Communication Department of Family [facility], [facility], in [address] [phone] Soham James M.D., Ph.D. Form Review ([facility]. diabetic footwear ) 10/18/2023 Clinical Communication Department of Family [facility], [facility], [address] [phone] Soham James M.D., Ph.D. 10/12/2023 Clinical Communication Department of Family [facility], [facility], in [address] [phone] Soham James M.D., Ph.D. PT Referral 10/11/2023 6:00 PM CDT Office Visit Department of Family [facility], [facility], [address] [phone] Soham James M.D., Ph.D. 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 Diabetes Mellitus Type 2 With Diabetic Neuropathy (HCC) 09/17/2023 Nurse Triage Department of Family [facility], [facility], [address] [phone] Tracey Thompson R.N. Med Question 09/17/2023 Refill Department of [facility], [facility], [address] [phone] Soham James M.D., Ph.D. Med Refill 09/15/2023 Refill Department of Family Medicine, [facility], [address] [phone] Soham James M.D., Ph.D. Med Change Request 09/14/2023 Refill Department of [facility], [facility], [address] [phone] Soham James M.D., Ph.D. Med Refill 09/14/2023 Clinical Communication Department of [facility], [facility], [address] [phone] Soham James M.D., Ph.D. 08/30/2023 Refill Department of Family Medicine, [facility], in [address] [phone] Soham James M.D., Ph.D. Med Change Request from Last 3 Months Allergies Active Allergy Reactions Criticality Noted Date Comments Esomeprazole Magnesium Nausea Only 11/12/2012 INCREASED ACID Penicillins Hives (Reselect Reaction) 04/15/2014 Xdyqdrb-Bzi-Cwc Reductase Inhibitors Myalgia 04/15/2014 Medications Medication Sig [...] KwikPen U-100 Insulin 100 unit/mL (3 mL) injectionIndication [...] 810 capsule 3 10/11/2023 5 Active DME CPAPIndications:Financial Institution Branch Manager ea Sleep Obstructive DME Order 1 each [...] - MODE RNA (12 YEARS AND OLDER) 05/12/2023 SARS-COV-2 (COVID-19) - MODERNA(Discontinued) SARS-COV-2 (COVID-19) [...] 177 cm (5' 9.69) 05/31/2023 2:47 PM BOTTLED BEVERAGE INSPECTOR Body Mass Index 39.32 05/31/2023 2:47 PM BOTTLED BEVERAGE INSPECTOR Plan of Treatment Not on file Medical Devices Implanted Type Area Pen Rider Device Identifier Shelf Expiration Date Model / Serial / Lot Knee Implant- 0 Implanted:08/14 by Amrik Falcon M.D. (Quantity not on file) Knee Implant Knee Procedures Procedure Name Priority Date/Time Associated Diagnosis Comments HEMOGLOBIN A1C, B Routine 10/11/2023 7:1 2 PM CDT Diabetes Mellitus Type 2 With Diabetic Neuropathy (HCC) EXTI SODIUM, S/P Routine 07/05/2023 9:05 AM BOTTLED BEVERAGE INSPECTOR EXTI BASIC METABOLIC PANEL, S/P Routine 07/04/2023 11:49 PM BOTTLED BEVERAGE INSPECTOR EXTI THYROID-STIMULATI NG HORMONE-SENSITIVE (S-TSH), S Routine 06/19/2023 5:47 AM BOTTLED BEVERAGE INSPECTOR ALBUMIN, RANDOM, U Routine 05/31/2023 2:26 PM BOTTLED BEVERAGE INSPECTOR Diabetes Mellitus Type 2 With Diabetic Neuropathy [...] James M.D., Ph.D. LAB BLOOD ADD-O N [facility] [address] [place] [address], [place] CNFL [facility] in [address] [address] * (ABNORMAL) Albumin, Random, Urine (05/31/2023 2:26 PM BOTTLED BEVERAGE INSPECTOR) Microalbumin 53.8 mg/L 05/31/2023 2:48 PM BOTTLED BEVERAGE INSPECTOR CNFL Creatinine 115 mg/dL 05/31/2023 2:48 PM BOTTLED BEVERAGE INSPECTOR CNFL Albumin/Creatinin e Ratio 47(H) <17 mg/g 05/31/2023 2:48 PM BOTTLED BEVERAGE INSPECTOR CNFL Urine (Urine, Midstream) 05/31/2023 2:26 PM BOTTLED BEVERAGE INSPECTOR 05/31/2023 2:26 PM BOTTLED BEVERAGE INSPECTOR Soham James M.D., Ph.D. LAB URINE ORDER [facility]TH [facility] [address] [place] [address], [facility] CNFL [facility] in [place] [id number] * US Aorta AAA Screening (05/05/2020 10:41 [...] negative for aneurysm. Soham James M.D., Ph.D. [facility] US PROCEDUR ES * HCV AB Scrn w/Reflex to HCV PCR, S (10/06/2017 2:29 PM CDT) HCV Ab Screen, S Nonreactive Nonreactive 10/09/2017 10:35 AM CDT [facility] Blood 10/06/2017 2:29 PM CDT 10/06/2017 9:44 PM CDT Narrative [facility] - 10/09/2017 10:35 AM CDT Specimen Information: Specimen ID: [id number] Specimen Type: Blood Specimen Collection Start Date: 10/06/2017 ??2:29 PM Specimen Received Date: 10/06/2017 ??9:44 PM Specimen ID: [id number] Specimen Type: Blood Specimen Collection Start Date: 10/06/2017 ??2:29 PM Specimen Received Date: 10/06/2017 ??9:44 PM Soham James M.D., Ph.D. LAB MICROBIOLOG Y - BLOOD ORDERABLES [facility] [address] [place] [address], [facility] from Last 3 Months or Most Recently Relevant to Health Maintenance Care Teams Mannequin Molder Relationship Specialty Start Date End Date Soham James M.D., Ph.D. [address] [place] [phone] PCP - General 12/22/16
--- OUTSIDE RECORDS SUMMARY | 2023-11-22 10:30 | XMS_ITS | Encounter Summary ---
Author Name Unknown Organization [facility] Address [address] [place] [address] Care Team Providers Care Rn Integrated Name Role Phone Soham James M.D., Ph.D. Primary Care Provider Reason for Visit * Reason Comments Med Change Request Encounter Details Date Type Department Care Team (Late st Contact Info) Description 08/30/2023 Refill Department of Family Medicine, [facility], in [address] [phone] Soham James M.D., Ph.D. [address] [place] [phone] Med Change Request Social History Tobacco [...] Total Score: 3 05/31/20 23 3:22 PM BILINGUAL SALES CONSULTANT documented as of this encounter Care Teams Rn Integrated Relationship Specialty Start Date End Date Soham James M.D., Ph.D. [address] [place] [phone] PCP - General 12/22/16 documented as of this encounter
--- OUTSIDE RECORDS SUMMARY | 2023-11-22 10:30 | XMS_ITS | Encounter Summary ---
Author Name Unknown Organization [facility] Address [address] [place] [address] Care Team Providers Care Director Of Logistics Name Role Phone Soham James M.D., Ph.D. Primary Care Provider Reason for Visit * Reason Onset Date Comments PandaDoc Form 11/06/2023 [facility] (PT Outpatient Eval 11/02/23 Encounter Details Date Type Department Care Team (Latest Contact Info) Description 11/06/2023 Clinical Communication Department of Family Medicine, [facility], in [address] [phone] Soham James M.D., Ph.D. [address] [place] [phone] PandaDoc Form ([facility] (PT Outpatient Eval 11/02/23) Social History Tobacco [...] AM CDT Completed form(s) faxed back to [place], and sent to [facility] for scanning. * Telephone Encounter - Maranda Joshi - 11/06/2023 4:50 PM CDT Form was routed to Soham James M.D., Ph.D. for electronic review/signature. HARDWARE TRAINER: [facility] PHONE NUMBER: [phone] INFO REQUESTED: PT Outpatient Eval 11/02/23 INSTRUCTIONS: Fax information to [phone] documented in this encounter Plan of Treatment Not on file documented as of this encounter Visit Diagnoses Not on filedocumented in this encounter Additional Health Concerns Assessment Noted Time PHQ-9 Depression Total Score: 5 10/11/19 24 9:23 PM CDT documented as of this encounter Care Teams Director Of Logistics Relationship Specialty Start Date End Date Soham James M.D., Ph.D. [address] [place] [phone] PCP - General 12/22/16 documented as of this encounter
--- OUTSIDE RECORDS SUMMARY | 2023-11-22 10:30 | XMS_ITS | Encounter Summary ---
Author Name Unknown Organization [facility] Address [address] [place] [address] Care Team Providers Care Crude Tester Name Role Phone Soham James M.D., Ph.D. Primary Care Provider Reason for Referral * Outpatient (Routine) - Authorized Specialty Diagnoses / Procedures Referred By Rj rush Referred To Contact Diagnoses Pain Neck Pain Shoulder Right Soham James M.D., Ph.D. [address] [place] [phone] External, Referring Provider Referral ID Status Reason Start Date Expiration Date Visits Requested Visits Authorized [id number] Authorized Patient Preference 10/11/2023 04/11/2025 1 1 Reason for Visit * Reason Comments Chronic Disease Management Follow up had heart attack/stroke. Would like to restart Ozempic * Appointment Request (Routine) - Closed Specialty Diagnoses / Procedures Referred By Rj rush Referred To Contact Family Medicine Referral ID Status Reason Start Date Expiration Date Visits Re quested Visits Authorized [id number] Closed 07/20/2023 07/19/2024 1 1 Encounter Details Date Type Department Care Team (Latest Contact Info) Description 10/11/2023 6:00 PM CDT Office Visit Department of Family Medicine, [facility], in [address] [phone] Soham James M.D., Ph.D. [address] [place] [phone] Coronary Artery Disease With Stable Angina [...] Body Mass Index 39.32 05/31/2023 2:47 PM WINDOWS MIGRATION TECHNICIAN documented in this encounter Progress Notes * [...] on his right foot, treating with the [facility] wound clinic (on antibiotics, improving, but [...] Mellitus Type 2 With Other Circulatory Complication ([facility]) Pain Neck - External referral ancillary ([facility]) - gabapentin (NEURONTIN) 100 mg capsule; Take 2 capsules (200 mg total) by mouth 3 (three) times a day for 14 days, THEN 3 capsules (300 mg total) 3 (three) times a day. Pain Shoulder Right - External referral ancillary ([facility]) Other orders - semaglutide (OZEMPIC) 2 mg/dose [...] James M.D., Ph.D. LAB BLOOD ADD-O N [facility] [address] [place] [address], [facility] in [address] [address] documented in this encounter Visit Diagnoses Diagnosis [...] documented as of this encounter Care Teams Crude Tester Relationship Specialty Start Date End Date Soham James M.D., Ph.D. [address] [place] [phone] PCP - General 12/22/16 documented as of this encounter
--- OUTSIDE RECORDS SUMMARY | 2023-11-22 10:30 | XMS_ITS | Encounter Summary ---
Author Name Unknown Organization [facility] Address [address] [place] [address] Care Team Providers Care Mail Order Sorter Name Role Phone Soham James M.D., Ph.D. Primary Care Provider Reason for Visit * Reason Onset Date Comments Med Question 09/17/2023 Encounter Details Date Type Department Care Team (Late st Contact Info) Description 09/17/2023 Nurse Triage Department of Family Medicine, [facility], in [address] [phone] Tracey Thompson R.N. [address] [place] [phone] Med Question Social History Tobacco [...] regarding Med Question. Assessment Concern: Sunita from [facility] pharmacy calls stating that patient called today to refill his Basaglar insulin because he is completely out. Reviewed medical record informed Sunita that an Rx was sent on 11/07/2022 which [facility] did not have. Verbal order provided to Sunita at [facility] The recommended disposition is Other. documented in this encounter Plan of Treatment Not on file documented as of this encounter Visit Diagnoses Not on filedocumented in this encounter Additional Health Concerns Assessment Noted Time PHQ-9 Depression Total Score: 3 05/31/20 23 3:22 PM OYSTER FARMER documented as of this encounter Care Teams Mail Order Sorter Relationship Specialty Start Date End Date Soham James M.D., Ph.D. [address] [place] [phone] PCP - General 12/22/16 documented as of this encounter
--- OUTSIDE RECORDS SUMMARY | 2023-11-22 10:30 | XMS_ITS | Encounter Summary ---
Author Name Unknown Organization [facility] Address [address] [place] [address] Care Team Providers Care Canvas Cutter Machine Name Role Phone Soham James M.D., Ph.D. Primary Care Provider Reason for Visit * Reason Comments Med Refill Encounter Details Date Type Department Care Team (Late st Contact Info) Description 09/14/2023 Refill Department of Family Medicine, [facility], in [address] [phone] Soham James M.D., Ph.D. [address] [place] [phone] Med Refill Social History Tobacco Use Types [...] Total Score: 3 05/31/20 23 3:22 PM SPRING CRATER documented as of this encounter Care Teams Canvas Cutter Machine Relationship Specialty Start Date End Date Soham James M.D., Ph.D. [phone] [phone] PCP - General 12/22/16 documented as of this encounter
--- OUTSIDE RECORDS SUMMARY | 2023-11-22 10:30 | XMS_ITS | Encounter Summary ---
Author Name Unknown Organization [facility] Address [address] [place] [address] Care Team Providers Care Maintenance And Operations Supervisor Name Role Phone Soham James M.D., Ph.D. Primary Care Provider Reason for Visit * Reason Onset Date Comments Form Review 10/23/2023 [facility] diabetic footwear Encounter Details Date Type Department Care Team (Latest Contact Info) Description 10/23/2023 Clinical Communication Department of Family Medicine, [facility], in [address] [phone] Soham James M.D., Ph.D. [address] [place] [phone] Form Review ([facility] diabetic footwear ) Social History Tobacco Use [...] Soham James M.D., Ph.D. for electronic review/signature. MERCERIZER MACHINE OPERATOR: [facility] PHONE NUMBER: [phone] INFO REQUESTED: diabetic footwear INSTRUCTIONS: Fax information to [phone] documented in this encounter Plan of Treatment Not on file documented as of this encounter Visit Diagnoses Not on filedocumented in this encounter Additional Health Concerns Assessment Noted Time PHQ-9 Depression Total Score: 5 10/11/19 24 9:23 PM CDT documented as of this encounter Care Teams Maintenance And Operations Supervisor Relationship Specialty Start Date End Date Soham James M.D., Ph.D. [address] [place] [phone] PCP - General 12/22/16 documented as of this encounter
--- OUTSIDE RECORDS SUMMARY | 2023-11-22 10:30 | XMS_ITS | Encounter Summary ---
Author Name Unknown Organization [facility] Address [address] [place] [address] Care Team Providers Care Baggage Clerk Name Role Phone Soham James M.D., Ph.D. Primary Care Provider Reason for Visit * Reason Onset Date Comments Form Review 08/21/2023 [facility] ( Order [id number] Encounter Details Date Type Department Care Team (Latest Contact Info) Description 08/21/2023 Clinical Communication Department of Family Medicine, [facility], in [address] [phone] Soham James M.D., Ph.D. [address] [place] [phone] Form Review ([facility] ( Order [id number]) Social History Tobacco Use Types Packs/Day Years [...] back to the listed facility. Scanned into [facility] ATE TUTOR * Telephone Encounter - Jacki Sparrow - 08/21/2023 3:36 PM CST Form was emailed to Soham James MD for electronic review/signature. BEAUTY SPECIALIST: [facility] PHONE NUMBER: [phone] INFO REQUESTED: Order [id number] INSTRUCTIONS: Fax information to [phone] ATE TUTOR documented in this encounter Plan of Treatment Not on file documented as of this encounter Visit Diagnoses Not on filedocumented in this encounter Additional Health Concerns Assessment Noted Time PHQ-9 Depression Total Score: 3 05/31/20 23 3:22 PM PRIVATE TUTOR documented as of this encounter Care Teams Baggage Clerk Relationship Specialty Start Date End Date Soham James M.D., Ph.D. [address] [place] [phone] PCP - General 12/22/16 documented as of this encounter
--- OUTSIDE RECORDS SUMMARY | 2023-11-22 10:30 | XMS_ITS | Encounter Summary ---
Author Name Unknown Organization [facility] Address [address] [place] [address] Care Team Providers Care Sourcing Assistant Name Role Phone Soham James M.D., Ph.D. Primary Care Provider Encounter Details Date Type Department Care Team (Late st Contact Info) Description 10/10/2023 Orders Only [facility] Soham James M.D., Ph.D. [address] [place] [phone] Diabetes Mellitus Type 2 With Diabetic [...] James M.D., Ph.D. LAB BLOOD ADD-O N [facility] [address] [place] [address], [facility] [address] [address] documented in this encounter Visit Diagnoses Diagnosis Diabetes Mellitus Type 2 With Diabetic Neuropathy (HCC) documented in this encounter Additional Health Concerns Assessment Noted Time PHQ-9 Depression Total Score: 3 05/31/20 23 3:22 PM SUPERINTENDENT SALES documented as of this encounter Care Teams Sourcing Assistant Relationship Specialty Start Date End Date Soham James M.D., Ph.D. [address] [place] [phone] PCP - General 12/22/16 documented as of this encounter
--- OUTSIDE RECORDS SUMMARY | 2023-11-22 10:30 | XMS_ITS | Encounter Summary ---
Author Name Unknown Organization [facility] Address [address] [place] [address] Care Team Providers Care Dining Room Busser Name Role Phone Soham James M.D., Ph.D. Primary Care Provider Reason for Visit * Reason Comments Med Change Request Encounter Details Date Type Department Care Team (Late st Contact Info) Description 09/15/2023 Refill Department of Family Medicine, [facility], in [address] [phone] Soham James M.D., Ph.D. [address] [place] [phone] Med Change Request Social History Tobacco Use [...] Total Score: 3 05/31/20 23 3:22 PM BUNG SEWER documented as of this encounter Care Teams Dining Room Busser Relationship Specialty Start Date End Date Soham James M.D., Ph.D. [address] [phone] PCP - General 12/22/16 documented as of this encounter
--- OUTSIDE RECORDS SUMMARY | 2023-11-22 10:30 | XMS_ITS | Encounter Summary ---
Author Name Unknown Organization [facility] Address [address] [place] [address] Care Team Providers Care Microsoft Solutions Architect Name Role Phone Soham James M.D., Ph.D. Primary Care Provider Reason for Referral * Medication Prior Authorization - Closed Specialty Diagnoses / Procedures Referred By Contac t Referred To Contact Diagnoses Diabetes Mellitus Type 2 With Diabetic Neuropathy (HCC) Soham James M.D., Ph.D. [address] [place] [phone] Referral ID Status Reason Start Date Expiration Date Visits Re quested Visits Authorized [id number] Closed 1 1 Encounter Details Date Type Department Care Team (Late st Contact Info) Description 10/18/2023 Clinical Communication Department of Family Medicine, [facility], in [address] [phone] Soham James M.D., Ph.D. [address] [place] [phone] Social History Tobacco Use Types Packs/Day [...] documented as of this encounter Care Teams Microsoft Solutions Architect Relationship Specialty Start Date End Date Soham James M.D., Ph.D. [address] [place] [phone] PCP - General 12/22/16 documented as of this encounter
--- OUTSIDE RECORDS SUMMARY | 2023-11-22 10:30 | XMS_ITS | Encounter Summary ---
Author Name Unknown Organization [facility] Address [address] [place] [address] Care Team Providers Care Production Recorder Name Role Phone Soham James M.D., Ph.D. Primary Care Provider Reason for Visit * Reason Comments Med Refill Encounter Details Date Type Department Care Team (Late st Contact Info) Description 08/23/2023 Refill Department of Family Medicine, [facility], in [address] [phone] Soham James M.D., Ph.D. [address] [place] [phone] Med Refill Social History Tobacco Use [...] renew or reject as appropriate. Thank you. ASTRUCTURE ANALYST documented in this encounter Plan of Treatment Not on file documented as of this encounter Visit Diagnoses Diagnosis Diabetes Mellitus Type 2 With Diabetic Neuropathy (HCC) documented in this encounter Additional Health Concerns Assessment Noted Time PHQ-9 Depression Total Score: 3 05/31/20 23 3:22 PM INFRASTRUCTURE ANALYST documented as of this encounter Care Teams Production Recorder Relationship Specialty Start Date End Date Soham James M.D., Ph.D. [address] [place] [phone] PCP - General 12/22/16 documented as of this encounter
--- OUTSIDE RECORDS SUMMARY | 2023-11-22 10:30 | XMS_ITS | Clinical Summary ---
Author Name Unknown Organization [facility] Address [address] [place] [address] Care Team Providers Care Electronics Repair Technician Name Role Phone Soham James M.D., Ph.D. Primary Care Provider Source Comments Patient records contain information from all sites at [facility]. For routine questions regarding patient records, call [phone] during business hours, M-F 8:00 AM - 5:00 PM Central Time. Record requests for emergency care only can be directed to [phone] at any time.[facility] Allergies Active Allergy Reactions Criticality Noted Date Comments Esomeprazole Magnesium Nausea Only 11/12/2012 INCREASED ACID Penicillins Hives (Reselect Reaction) 04/15/2014 Lnvoydr-Xwk-Qnb Reductase Inhibitors Myalgia 04/15/2014 Medications Medication Sig [...] 810 capsule 3 10/11/2023 5 Active DME CPAPIndications:Visual Specialist ea Sleep Obstructive DME Order 1 each [...] 11/06/2023 Clinical Communication Department of Family Medicine, [facility], in [address] [place] [address] Soham James M.D., Ph.D. [facility] Form ([facility] (PT Outpatient Eval 11/02/23) 10/23/2023 Clinical Communication Department of Family [facility], [facility], [address] [address] Soham James M.D., Ph.D. Form Review ([facility]. diabetic footwear ) 10/18/2023 Clinical Communication Department of [facility], [facility], [address] [address] Soham James M.D., Ph.D. 10/12/2023 Clinical Communication Department of [facility], [address] [address] Soham James M.D., Ph.D. PT Referral 10/11/2023 6:00 PM CDT Office Visit Department of [facility], [address] [address] Soham James M.D., Ph.D. 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 Diabetes Mellitus Type 2 With Diabetic Neuropathy (HCC) 09/17/2023 Nurse Triage Department of [facility], [facility], [address] [address] Tracey Thompson, R.N. Med Question 09/17/2023 Refill Department of Family Medicine, [facility], in [address] [address] Soham James M.D., Ph.D. Med Refill 09/15/2023 Refill Department of Family Medicine, [facility], [address] [address] Soham James M.D., Ph.D. Med Change Request 09/14/2023 Refill Department of Family Medicine, [facility], [address] [place] [address] Soham James M.D., Ph.D. Med Refill 09/14/2023 Clinical Communication Department of [facility], [facility], [address] [place] [address] Soham James M.D., Ph.D. 08/30/2023 Refill Department of Family Medicine, [facility], [address] [place] [address] Soham James M.D., Ph.D. Med Change Request from Last 3 Months Immunizations Name Administration [...] 177 cm (5' 9.69) 05/31/2023 2:47 PM RESOURCE CENTER TEACHER Body Mass Index 39.32 05/31/2023 2:47 PM RESOURCE CENTER TEACHER Plan of Treatment Health Maintenance Due Date [...] 07/12/2023 Visit: Chronic Disease, age 18+ Discontinued , 07/12/2023 CT Colonography Discontinued Cologuard Discontinued FIT Discontinued Medical Devices Implanted Type Area Tracer Powder Blender Device Identifier Shelf Expiration Date Model / Serial / Lot Knee Implant- 0 Implanted:08/14 by Amrik Falcon M.D. (Quantity not on file) Knee Implant Knee Procedures Procedure Name Priority Date/Time Associated Diagnosis Comments HEMOGLOBIN A1C, B Routine 10/11/2023 7:1 2 PM CDT Diabetes Mellitus Type 2 With Diabetic Neuropathy (HCC) EXTI SODIUM, S/P Routine 07/05/2023 9:05 AM RESOURCE CENTER TEACHER EXTI BASIC METABOLIC PANEL, S/P Routine 07/04/2023 11:49 PM RESOURCE CENTER TEACHER EXTI THYROID-STIMULATI NG HORMONE-SENSITIVE (S-TSH), S Routine 06/19/2023 5:47 AM RESOURCE CENTER TEACHER ALBUMIN, RANDOM, U Routine 05/31/2023 2:26 PM RESOURCE CENTER TEACHER Diabetes Mellitus Type 2 With Diabetic Neuropathy [...] LAB BLOOD ADD-O N Performing Organization Address [facility] Co de Phone Number [facility] [address] [place] [phone], [facility] in [address] [address] * (ABNORMAL) Albumin, Random, Urine (05/31/2023 2:26 PM RESOURCE CENTER TEACHER) Microalbumin 53.8 mg/L 05/31/2023 2:48 PM RESOURCE CENTER TEACHER CNFL Creatinine 115 mg/dL 05/31/2023 2:48 PM RESOURCE CENTER TEACHER CNFL Albumin/Creatinin e Ratio 47(H) <17 mg/g 05/31/2023 2:48 PM RESOURCE CENTER TEACHER CNFL Urine (Urine, Midstream) 05/31/2023 2:26 PM RESOURCE CENTER TEACHER 05/31/2023 2:26 PM RESOURCE CENTER TEACHER Soham James M.D., Ph.D. LAB URINE ORDER SREEKANTH Performing Organization Address City/[facility] Co de Phone Number [facility] [address] [place] [phone], [facility] in [address] [address] * US Aorta AAA Screening (05/05/2020 10:41 [...] S Nonreactive Nonreactive 10/09/2017 10:35 AM CDT [facility] Blood 10/06/2017 2:29 PM CDT 10/06/2017 9:44 PM CDT Narrative [facility] - 10/09/2017 10:35 AM CDT Specimen Information: Specimen ID: [id number] Specimen Type: Blood Specimen Collection Start Date: 10/06/2017 ??2:29 PM Specimen Received Date: 10/06/2017 ??9:44 PM Specimen ID: [id number] Specimen Type: Blood Specimen Collection Start Date: 10/06/2017 ??2:29 PM Specimen Received Date: 10/06/2017 ??9:44 PM Soham James M.D., Ph.D. LAB MICROBIOLOG Y - BLOOD ORDERABLES [facility] [address] [place] [address], [facility] from Last 3 Months or Most Recently Relevant to Health Maintenance Care Teams Electronics Repair Technician Relationship Specialty Start Date End Date Soham James M.D., Ph.D. [address] [place] [phone] PCP - General 12/22/16
--- OUTSIDE RECORDS SUMMARY | 2023-11-22 10:30 | XMS_ITS | Encounter Summary ---
Author Name Unknown Organization [facility] Address [address] [place] [address] Care Team Providers Care Spooler Rubber Strand Name Role Phone Soham James M.D., Ph.D. Primary Care Provider Reason for Visit * Reason Comments Med Refill Encounter Details Date Type Department Care Team (Late st Contact Info) Description 09/17/2023 Refill Department of Family Medicine, [facility], in [address] [phone] Soham James M.D., Ph.D. [address] [place] [phone] Med Refill Social History Tobacco Use Types [...] Total Score: 3 05/31/20 23 3:22 PM OFFICE ADMINISTRATOR documented as of this encounter Care Teams Spooler Rubber Strand Relationship Specialty Start Date End Date Soham James M.D., Ph.D. [address] [place] [phone] PCP - General 12/22/16 documented as of this encounter
--- OUTSIDE RECORDS SUMMARY | 2023-11-22 10:30 | XMS_ITS | Encounter Summary ---
Author Name Unknown Organization [facility] Address [address] [place] [address] Care Team Providers Care Agricultural Plow Operator Name Role Phone Soham James M.D., Ph.D. Primary Care Provider Reason for Visit * Reason Onset Date Comments Form Review 08/22/2023 [employer] [facility] Order [id number] Encounter Details Date Type Department Care Team (Latest Contact Info) Description 08/22/2023 Clinical Communication Department of Family Medicine, [facility], in [address] [phone] Soham James M.D., Ph.D. [address] [place] [phone] Form Review ([employer] [facility] Order [id number] ) Social History Tobacco Use Types Packs/Day [...] back to facility and sent for scanning. ING MACHINE TENDER AUTOMATIC * Telephone Encounter - Tracey Eng - 08/22/2023 11:26 AM CST Form was emailed to Dr. James for electronic review/signature. CUFF PRESSER: [facility] PHONE NUMBER: [phone] INFO REQUESTED: Order [id number] INSTRUCTIONS: Fax information to [phone] ING MACHINE TENDER AUTOMATIC documented in this encounter Plan of Treatment Not on file documented as of this encounter Visit Diagnoses Not on filedocumented in this encounter Additional Health Concerns Assessment Noted Time PHQ-9 Depression Total Score: 3 05/31/20 23 3:22 PM SANDING MACHINE TENDER AUTOMATIC documented as of this encounter Care Teams Agricultural Plow Operator Relationship Specialty Start Date End Date Soham James M.D., Ph.D. [address] [place] [phone] PCP - General 12/22/16 documented as of this encounter
--- OUTSIDE RECORDS SUMMARY | 2023-11-22 10:30 | XMS_ITS | Encounter Summary ---
Author Name Unknown Organization [facility] Address [address] [place] [address] Care Team Providers Care Coupon Clerk Name Role Phone Soham James M.D., Ph.D. Primary Care Provider Reason for Visit * Reason Onset Date Comments PT Referral 10/12/2023 Encounter Details Date Type Department Care Team (Late st Contact Info) Description 10/12/2023 Clinical Communication Department of Family Medicine, [facility], in [address] [phone] Soham James M.D., Ph.D. [address] [place] [phone] PT Referral Social History Tobacco Use [...] documented as of this encounter Care Teams Coupon Clerk Relationship Specialty Start Date End Date Soham James M.D., Ph.D. [address] [phone] PCP - General 12/22/16 documented as of this encounter
--- OUTSIDE RECORDS SUMMARY | 2023-11-22 10:30 | XMS_ITS | Encounter Summary ---
Author Name Unknown Organization [facility] Address [address] [place] [address] Care Team Providers Care Help Desk Engineer Name Role Phone Soham James M.D., Ph.D. Primary Care Provider Encounter Details Date Type Department Care Team (Late st Contact Info) Description 09/14/2023 Clinical Communication Department of Family Medicine, [facility], in [address] [phone] Soham James M.D., Ph.D. [address] [place] [phone] Social History Tobacco Use Types Packs/Day [...] following references were used: nursing clinical judgement OGIST * Telephone Encounter - Marialuisa Benson - [...] send all scheduling replies to scheduling pool. OGIST documented in this encounter Plan of Treatment Not on file documented as of this encounter Visit Diagnoses Diagnosis Diabetes Mellitus Type 2 With Diabetic Neuropathy (HCC) documented in this encounter Additional Health Concerns Assessment Noted Time PHQ-9 Depression Total Score: 3 05/31/20 23 3:22 PM UROLOGIST documented as of this encounter Care Teams Help Desk Engineer Relationship Specialty Start Date End Date Soham James M.D., Ph.D. [address] [place] [phone] PCP - General 12/22/16 documented as of this encounter
--- OUTSIDE RECORDS SUMMARY | 2023-11-22 10:30 | XMS_ITS ---
Author Name Unknown Organization [facility] Address [address] [place] [address] Care Team Providers Care Supervisor Printing Shop Name Role Phone Unavailable Unavailable Unavailable Surgery Details Not on file Complications Check Surgery Details section. Procedure Estimated Blood Loss Check Surgery Details section. Procedure Findings Check Surgery Details section. Procedure Specimens Taken Check Surgery Details section.
--- OUTSIDE RECORDS SUMMARY | 2023-11-22 10:30 | XMS_ITS | Encounter Summary ---
Author Name Unknown Organization [facility] Address [address] [place] [address] Care Team Providers Care Top Lifter Name Role Phone Soham James M.D., Ph.D. Primary Care Provider Reason for Visit * Reason Comments Med Change Request Encounter Details Date Type Department Care Team (Late st Contact Info) Description 08/23/2023 Refill Department of Family Medicine, [facility], in [address] [phone] Soham James M.D., Ph.D. [address] [place] [phone] Med Change Request Social History Tobacco [...] Total Score: 3 05/31/20 23 3:22 PM RACE STARTER documented as of this encounter Care Teams Top Lifter Relationship Specialty Start Date End Date Soham James M.D., Ph.D. [address] [place] [phone] PCP - General 12/22/16 documented as of this encounter
--- OUTSIDE RECORDS SUMMARY | 2023-11-22 10:31 | XMS_ITS | Encounter Summary ---
Author Name Unknown Organization [facility] Address [address] [place] [address] Care Team Providers Care Director Shopper Marketing Name Role Phone Soham James M.D., Ph.D. Primary Care Provider Reason for Visit * Reason Onset Date Comments Form Review 08/21/2023 Charles kay [id number] Encounter Details Date Type Department Care Team (Latest Contact Info) Description 08/21/2023 Clinical Communication Department of Family Medicine, [facility], in [address] [phone] Soham James M.D., Ph.D. [address] [place] [phone] Form Review (Charles - order [id number]) Social History Tobacco Use Types Packs/Day Years [...] back to the listed facility. Scanned into [facility] ER SHREDDER * Telephone Encounter - Ivonne Rivera - 08/21/2023 12:40 PM CST Form was emailed to Dr James for electronic review/signature. FOREST OFFICER: [facility] PHONE NUMBER: [phone] INFO REQUESTED: order [id number] INSTRUCTIONS: Fax information to [phone] ER SHREDDER documented in this encounter Plan of Treatment Not on file documented as of this encounter Visit Diagnoses Not on filedocumented in this encounter Additional Health Concerns Assessment Noted Time PHQ-9 Depression Total Score: 3 05/31/20 23 3:22 PM FILLER SHREDDER documented as of this encounter Care Teams Director Shopper Marketing Relationship Specialty Start Date End Date Soham James M.D., Ph.D. [address] [place] [phone] PCP - General 12/22/16 documented as of this encounter
--- OUTSIDE RECORDS SUMMARY | 2023-11-22 10:31 | XMS_ITS | Encounter Summary ---
Author Name Unknown Organization [facility] Address [address] [place] [address]. [place] [address] Care Team Providers Care Warehouse Puller Name Role Phone Soham James MD Primary Care Provider [phone] Encounter Details Date Type Department Care Team (Late st Contact Info) Description 2023 Telephone [facility] Podiatry [address] [facility] [address] [place], [place] [address] Piper Castanon, [place], Podiatry/Foot and Ankle Surgery [address] [facility] [address] [place], [place] [phone] Social History Tobacco Use Types Packs/Day Years [...] referral we received from Dr. Soham James ([facility]) via fax this morning. Scheduled patient to see Dr. Castanon on June 20 in [place]. Patient requested the building address be sent to him via mail, so a letter was sent out. Patient was appreciative of the call. Dionte Rodrigez, Visit Fast Food Worker CHANGER documented in this encounter Plan of Treatment Not on file documented as of this encounter Visit Diagnoses Not on filedocumented in this encounter Care Teams Warehouse Puller Relationship Specialty Start Date End Date Soham James MD [facility] [address] [place] [address] PCP - General Family Practice 07/25/12 documented as of this encounter
--- OUTSIDE RECORDS SUMMARY | 2023-11-22 10:31 | XMS_ITS | Referral Summary ---
Author Name Unknown Organization [facility] Address [address] [place] [address] Care Team Providers Care Surveying Crew Stake Runner Name Role Phone Soham James MD Primary Care Provider [phone] Allergies Active Allergy Reactions Criticality Noted Date [...] Comments Blood Pressure 118/67 08/07/2018 9:20 AM IT MANAGER Pulse 64 08/07/2018 9:20 AM IT MANAGER Temperature 36.6 ??C (97.9 ??F) 08/21/2012 8:20 AM CS T Respiratory Rate 20 08/07/2018 9:30 AM IT MANAGER Oxygen Saturation 91% 08/07/2018 9:27 AM IT MANAGER Inhaled Oxygen Concentration - - Weight 124.7 kg (275 lb) 08/07/2018 7:52 AM IT MANAGER Height 177.8 cm (5' 10) 08/07/2018 7:52 AM IT MANAGER Body Mass Index 39.46 08/07/2018 7:52 AM IT MANAGER Plan of Treatment Not on file Procedures Procedure Name Priority Date/Time Associated Diagnosis Comments COLONOSCOPY Routine 08/07/2018 8:13 AM IT MANAGER GLUCOSE BY METER Routine 08/21/2012 7:19 AM IT MANAGER from Last 3 Months or Most Recently Relevant to Health Maintenance Results * COLONOSCOPY (08/07/2018 8:13 AM IT MANAGER) [facility] COLONOSCOPY [facility] Endoscopy Department ___ Patient Name: Shin Best ? Procedure Date: 08/07/2018 8:13 AM ? Date of : 1945 ? Admit Type: Outpatient Age: 73 ? Room: 3 Note Status: Finalized ?Attending MD: Abraham Milner , Total Sedation Time: 41 mins of continuous bedside 1:1 Instrument Name: 325 [id number] AdultColonoscope ___ Procedure: ?Colonoscopy Indications: ?Screening for [...] Procedure Code(s): ? --- Professional --- ? 79206, Colonoscopy, flexible; with removal of tumor(s), polyp(s), or ? other lesion(s) by snare technique Diagnosis Code(s): ? --- Professional --- ? Z12.11, Encounter for screening for malignant neoplasm of colon ? K62.1, Rectal polyp CPT copyright 2017 [employer]. All rights reserved. The codes documented in this report are preliminary and upon medical coder review may be revised to meet current compliance requirements. Abraham Milner, 08/07/2018 9:10:30 AM I was physically present for the entire viewing portion of the exam. Abraham Milner Number of Addenda: 0 Note Initiated On: 08/07/2018 8:13 AM MRN: ?[id number] Procedure Date: ? 08/07/2018 8:13:49 AM Scope Withdrawal Time: 0 hours 13 minutes 27 seconds Total Procedure Duration: 0 hours 40 minutes 58 seconds Estimated Blood Loss: ? Scope In: 8:20:39 AM Scope Out: 9:01:37 AM RADIOLOGY RESULTS 08/07/2018 8:13 AM IT MANAGER Soham James MD PROCEDURES RADIOLOGY RESULTS * Glucose by meter (08/21/2012 7:19 AM IT MANAGER) Glucose 79 60 - 99 mg/dL POINT OF CARE TEST, GLUCOSE Comment:Dr/RN Notified 08/21/2012 7:19 AM IT MANAGER 08/21/2012 7:25 AM IT MANAGER Stacy Ayers MD [facility] POCT POINT OF CARE TEST, GLUCOSE from Last 3 Months or Most Recently Relevant to Health Maintenance Care Teams Surveying Crew Stake Runner Relationship Specialty Start Date End Date Soham James MD [facility] [address] [place] [address] PCP - General Family Practice 07/25/12
--- OUTSIDE RECORDS SUMMARY | 2023-11-22 10:31 | XMS_ITS | Clinical Summary ---
Author Name Unknown Organization [facility] Address [address] [place] [address] Care Team Providers Care Econometrician Name Role Phone Soham James MD Primary Care Provider [phone] Allergies Active Allergy Reactions Criticality Noted Date [...] Comments Blood Pressure 118/67 08/07/2018 9:20 AM SECOND CUTTER Pulse 64 08/07/2018 9:20 AM SECOND CUTTER Temperature 36.6 ??C (97.9 ??F) 08/21/2012 8:20 AM CS T Respiratory Rate 20 08/07/2018 9:30 AM SECOND CUTTER Oxygen Saturation 91% 08/07/2018 9:27 AM SECOND CUTTER Inhaled Oxygen Concentration - - Weight 124.7 kg (275 lb) 08/07/2018 7:52 AM SECOND CUTTER Height 177.8 cm (5' 10) 08/07/2018 7:52 AM SECOND CUTTER Body Mass Index 39.46 08/07/2018 7:52 AM SECOND CUTTER Plan of Treatment Health Maintenance Due Date [...] Diagnosis Comments COLONOSCOPY Routine 08/07/2018 8:13 AM SECOND CUTTER GLUCOSE BY METER Routine 08/21/2012 7:19 AM SECOND CUTTER from Last 3 Months or Most Recently Relevant to Health Maintenance Results * COLONOSCOPY (08/07/2018 8:13 AM SECOND CUTTER) Pathologist [facility] COLONOSCOPY [facility] Endoscopy Department ___ Patient Name: Shin Best ? Procedure Date: 08/07/2018 8:13 AM ? Date of : 1945 ? Admit Type: Outpatient Age: 73 ? Room: 3 Note Status: Finalized ?Attending MD: Abraham Milner , Total Sedation Time: 41 mins of continuous bedside 1:1 Instrument Name: 325 [id number] AdultColonoscope ___ Procedure: ?Colonoscopy Indications: ?Screening for [...] Procedure Code(s): ? --- Professional --- ? 39940, Colonoscopy, flexible; with removal of tumor(s), polyp(s), or ? other lesion(s) by snare technique Diagnosis Code(s): ? --- Professional --- ? Z12.11, Encounter for screening for malignant neoplasm of colon ? K62.1, Rectal polyp CPT copyright 2017 [employer]. All rights reserved. The codes documented in this report are preliminary and upon braille coder review may be revised to meet current compliance requirements. Abraham Milner, 08/07/2018 9:10:30 AM I was physically present for the entire viewing portion of the exam. Abraham Milner Number of Addenda: 0 Note Initiated On: 08/07/2018 8:13 AM MRN: ?[id number] Procedure Date: ? 08/07/2018 8:13:49 AM Scope Withdrawal Time: 0 hours 13 minutes 27 seconds Total Procedure Duration: 0 hours 40 minutes 58 seconds Estimated Blood Loss: ? Scope In: 8:20:39 AM Scope Out: 9:01:37 AM RADIOLOGY RESULTS 08/07/2018 8:13 AM SECOND CUTTER Soham James MD PROCEDURES RADIOLOGY RESULTS * Glucose by meter (08/21/2012 7:19 AM SECOND CUTTER) Glucose 79 60 - 99 mg/dL POINT OF CARE TEST, GLUCOSE Comment:Dr/RN Notified 08/21/2012 7:19 AM SECOND CUTTER 08/21/2012 7:25 AM SECOND CUTTER Stacy Ayers MD LAB - [facility] POCT POINT OF CARE TEST, GLUCOSE from Last 3 Months or Most Recently Relevant to Health Maintenance Care Teams Econometrician Relationship Specialty Start Date End Date Soham James MD [facility] [address] [place] [address] PCP - General Family Practice 07/25/12
--- OUTSIDE RECORDS SUMMARY | 2023-11-22 10:31 | XMS_ITS | Encounter Summary ---
Author Name Unknown Organization [facility] Address [address] [place] [address] Care Team Providers Care Industrial Pipefitter Journeyman Name Role Phone Soham James M.D., Ph.D. Primary Care Provider Reason for Visit * Reason Comments Med Refill Encounter Details Date Type Department Care Team (Late st Contact Info) Description 08/11/2023 Refill Department of Family Medicine, [facility], in [address] [phone] Soham James M.D., Ph.D. [address] [place] [phone] Med Refill Social History Tobacco Use [...] Edita Ba L.PJoshNJosh - 08/17/2023 8:02 AM MAINTAINER CENTRAL OFFICE Per AVS from 08/14/2023 patient is taking Gabapentin 100mg TID TAINER CENTRAL OFFICE * Telephone Encounter - Jay Quincy Renae [...] 1 capsule (100 mg total) by mouth. TAINER CENTRAL OFFICE documented in this encounter Plan of Treatment Not on file documented as of this encounter Visit Diagnoses Not on filedocumented in this encounter Additional Health Concerns Assessment Noted Time PHQ-9 Depression Total Score: 3 05/31/20 23 3:22 PM MAINTAINER CENTRAL OFFICE documented as of this encounter Care Teams Industrial Pipefitter Journeyman Relationship Specialty Start Date End Date Soham James M.D., Ph.D. [address] [place] [phone] PCP - General 12/22/16 documented as of this encounter
--- OUTSIDE RECORDS SUMMARY | 2023-11-22 10:31 | XMS_ITS | Encounter Summary ---
Author Name Unknown Organization [facility] Address [address] [place] [address] Care Team Providers Care Needle Setter Name Role Phone Soham James M.D., Ph.D. Primary Care Provider Encounter Details Date Type Department Care Team (Late st Contact Info) Description 08/10/2023 Clinical Communication Department of Family Medicine, [facility], in [address] [phone] Soham James M.D., Ph.D. [address] [place] [phone] Social History Tobacco Use Types Packs/Day [...] Communication. Primary Provider: Soham James M.D., Ph.D. STANT HEALTH EDUCATOR documented in this encounter Plan of Treatment Not on file documented as of this encounter Visit Diagnoses Not on filedocumented in this encounter Additional Health Concerns Assessment Noted Time PHQ-9 Depression Total Score: 3 05/31/20 23 3:22 PM ASSISTANT HEALTH EDUCATOR documented as of this encounter Care Teams Needle Setter Relationship Specialty Start Date End Date Soham James M.D., Ph.D. [address] [place] [phone] PCP - General 12/22/16 documented as of this encounter
== END 2023-11-22 10:28 | disposition home or self-care (01) ==
LOC: WOUND 10:27
PROVIDERS: PCP Family Medicine; Visit Provider Surgery
DX: E11.621 Type 2 diabetes mellitus with foot ulcer (principal); L97.512 Non-pressure chronic ulcer of other part of right foot with fat layer exposed; I89.0 Lymphedema, not elsewhere classified; Z79.84 Long term (current) use of oral hypoglycemic drugs
CPT/HCPCS: 97597

== ENCOUNTER 2023-11-29 10:26 | Outpatient (CLI) | payer MEDICARE, BC, SELFPAY ==
--- OUTSIDE RECORDS SUMMARY | 2023-11-29 10:28 | XMS_ITS | Encounter Summary ---
Author Organization [facility] Address [address] [place] [address] Care Team Providers Care Youth Advocate Name Role Phone Soham James M.D., Ph.D. Primary Care Provider Encounter Details Date Type Department Care Team (Late st Contact Info) Description 10/10/2023 Orders Only [facility] Soham James M.D., Ph.D. [address] [place] [address] Diabetes Mellitus Type 2 With Diabetic Neuropathy [...] LAB BLOOD ADD-O N Performing Organization Address City/State/[facility] Co de Phone Number [facility] [address] [place] [address], [facility] [place] [address] documented in this encounter Visit Diagnoses Diagnosis Diabetes Mellitus Type 2 With Diabetic Neuropathy (HCC) documented in this encounter Additional Health Concerns Assessment Noted Time PHQ-9 Depression Total Score: 3 05/31/20 23 3:22 PM FLORAL DESIGNER documented as of this encounter Care Teams Youth Advocate Relationship Specialty Start Date End Date Soham James M.D., Ph.D. PCP - General 12/22/16 11/23/23 documented as of this encounter
--- OUTSIDE RECORDS SUMMARY | 2023-11-29 10:28 | XMS_ITS | Encounter Summary ---
Author Organization [facility] Address [address] [place] [address] Care Team Providers Care Vat House Supervisor Name Role Phone Soham James M.D., Ph.D. Primary Care Provider Reason for Visit * Reason Onset Date Comments PT Referral 10/12/2023 Encounter Details Date Type Department Care Team (Late st Contact Info) Description 10/12/2023 Clinical Communication Department of Family Medicine, [facility], in [address] [phone] Soham James M.D., Ph.D. [address] [place] [address] PT Referral Social History Tobacco Use Types [...] documented as of this encounter Care Teams Vat House Supervisor Relationship Specialty Start Date End Date Soham James M.D., Ph.D. PCP - General 12/22/16 11/23/23 documented as of this encounter
--- OUTSIDE RECORDS SUMMARY | 2023-11-29 10:28 | XMS_ITS | Encounter Summary ---
Author Organization [facility] Address [address] [place] [address] Care Team Providers Care Table Assembler Metal Name Role Phone Soham James M.D., Ph.D. Primary Care Provider Reason for Referral * Medication Prior Authorization - Closed Specialty Diagnoses / Procedures Referred By Contac t Referred To Contact Diagnoses Diabetes Mellitus Type 2 With Diabetic Neuropathy (HCC) Soham James M.D., Ph.D. [address] [facility] [place] [address] Referral ID Status Reason Start Date Expiration Date Visits Re quested Visits Authorized [id number] Closed 1 1 Encounter Details Date Type Department Care Team (Late st Contact Info) Description 10/18/2023 Clinical Communication Department of Family Medicine, [facility], in [address] [phone] Soham James M.D., Ph.D. [address] [place] [address] Social History Tobacco Use Types Packs/Day Years [...] documented as of this encounter Care Teams Table Assembler Metal Relationship Specialty Start Date End Date Soham James M.D., Ph.D. PCP - General 12/22/16 11/23/23 documented as of this encounter
--- OUTSIDE RECORDS SUMMARY | 2023-11-29 10:28 | XMS_ITS | Referral Summary ---
Author Organization [facility] Address [address] [place] [address] Care Team Providers Care Customer Engineer Name Role Phone Shanae Ugarte APRN, C.N.P. Primary Care Provide r Source Comments Patient records contain information from all sites at [facility]. For routine questions regarding patient records, call [phone] during business hours, M-F 8:00 AM - 5:00 PM Central Time. Record requests for emergency care only can be directed to [phone] at any time.[facility] Encounters Date Type Department Care Team Description 11/27/2023 Refill Department of Family Medicine, [facility], in [address] [phone] Shanae Ugarte APRN, C.N.P. Med Refill 11/06/2023 Clinical Communication Department of Family [facility], [facility], [address] [address] Soham James M.D., Ph.D. [facility] Form ([facility] (PT Outpatient Eval 11/02/23) 10/23/2023 Clinical Communication Department of Family [facility], [facility], in [address] [address] Soham James M.D., Ph.D. Form Review ([facility]. diabetic footwear ) 10/18/2023 Clinical Communication Department of Family Medicine, [facility], in [address] [address] Soham James M.D., Ph.D. 10/12/2023 Clinical Communication Department of Family [facility], [facility], [address] [address] Soham James M.D., Ph.D. PT Referral 10/11/2023 6:00 PM CDT Office Visit Department of Family Medicine, [facility], [address] [address] Soham James M.D., Ph.D. Coronary Artery Disease With Stable Angina (HCC) (Primary Dx); Stroke Cerebrovascular Accident Personal History; Hypersomnia; Apnea Sleep Obstructive; Dermatitis Seborrheic; Wound Foot Open Subsequent Right; Diabetes Mellitus Type 2 With Diabetic Neuropathy (HCC); 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); Pain Neck; Pain Shoulder Right Discharge Disposition: Home or Self Care 10/10/2023 Orders Only [facility] S[facility] M.D., Ph.D. Diabetes Mellitus Type 2 With Diabetic Neuropathy (HCC) 09/17/2023 Nurse Triage Department of Family [facility], [facility], [address] [address] Tracey Thompson R.N. Med Question 09/17/2023 Refill Department of Family [facility], [facility], [address] [address] Soham James M.D., Ph.D. Med Refill 09/15/2023 Refill Department of Family Medicine, [facility], [address] [address] Soham James M.D., Ph.D. Med Change Request 09/14/2023 Refill Department of Family Medicine, [facility], [address] [address] Soham James M.D., Ph.D. Med Refill 09/14/2023 Clinical Communication Department of Family Medicine, [facility], in [address] [phone] Soham James M.D., Ph.D. from Last 3 Months Allergies Active Allergy Reactions Criticality Noted Date Comments Esomeprazole Magnesium Nausea Only 11/12/2012 INCREASED ACID Penicillins Hives (Reselect Reaction) 04/15/2014 Kkglzki-Ljh-Cvz Reductase Inhibitors Myalgia 04/15/2014 Medications Medication Sig [...] each daily. 300 each 3 09/12/2019 Active desonide (DESOWEN) 0.05 % cream Apply [...] capsule by mouth every day 90 capsule 07/27/2023 Active folic acid 1 mg tablet [...] 10/11/2023 5 Active gabapentin (NEURONTIN) 100 mg capsuleIndications :Pain [...] as directed. 126 mL 3 10/22/2023 Active blood sugar diagnostic strips (Accu-Chek Guide test strips)Indications :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) TEST 3 TIMES DAILY. 270 strip 3 11/27/2023 Active Accu-Chek Guide test strips stripsIndications: Diabetes Mellitus Type 2 With Other Circulatory Complication Hyperglycemic (HCC) TEST 3 TIMES DAILY. E11.9 300 strip 3 05/28/2021 4 Discontinu ed(Reorder ) Active Problems Problem [...] - MODE RNA (12 YEARS AND OLDER) [id number] 05/12/2023 SARS-COV-2 (COVID-19) - MODERNA(Discontinued) SARS-COV-2 (COVID-19) [...] 177 cm (5' 9.69) 05/31/2023 2:47 PM SCUBA DIVING TEACHER Body Mass Index 39.32 05/31/2023 2:47 PM SCUBA DIVING TEACHER Plan of Treatment Not on file Medical Devices Implanted Type Area Longitudinal Float Operator Device Identifier Shelf Expiration Date Model / Serial / Lot Knee Implant- 0 Implanted:08/14 by Amrik Falcon M.D. (Quantity not on file) Knee Implant Knee Procedures Procedure Name Priority Date/Time Associated Diagnosis Comments HEMOGLOBIN A1C, B Routine 10/11/2023 7:1 2 PM CDT Diabetes Mellitus Type 2 With Diabetic Neuropathy (HCC) EXTI SODIUM, S/P Routine 07/05/2023 9:05 AM SCUBA DIVING TEACHER EXTI BASIC METABOLIC PANEL, S/P Routine 07/04/2023 11:49 PM SCUBA DIVING TEACHER EXTI THYROID-STIMULATI NG HORMONE-SENSITIVE (S-TSH), S Routine 06/19/2023 5:47 AM SCUBA DIVING TEACHER ALBUMIN, RANDOM, U Routine 05/31/2023 2:26 PM SCUBA DIVING TEACHER Diabetes Mellitus Type 2 With Diabetic [...] James M.D., Ph.D. LAB BLOOD ADD-O N [address] [address], [address] [address] * (ABNORMAL) Albumin, Random, Urine (05/31/2023 2:26 PM SCUBA DIVING TEACHER) Microalbumin 53.8 mg/L 05/31/2023 2:48 PM SCUBA DIVING TEACHER CNFL Creatinine 115 mg/dL 05/31/2023 2:48 PM SCUBA DIVING TEACHER CNFL Albumin/Creatinin e Ratio 47(H) <17 mg/g 05/31/2023 2:48 PM SCUBA DIVING TEACHER CNFL Urine (Urine, Midstream) 05/31/2023 2:26 PM SCUBA DIVING TEACHER 05/31/2023 2:26 PM SCUBA DIVING TEACHER Soham James M.D., Ph.D. LAB URINE ORDER [facility] [address] [address], [address] [address] * US Aorta AAA Screening (05/05/2020 10:41 [...] S Nonreactive Nonreactive 10/09/2017 10:35 AM CDT [facility] Blood 10/06/2017 2:29 PM CDT 10/06/2017 9:44 PM CDT Narrative [facility] - 10/09/2017 10:35 AM CDT Specimen Information: Specimen ID: [id number] Specimen Type: Blood Specimen Collection Start Date: 10/06/2017 ??2:29 PM Specimen Received Date: 10/06/2017 ??9:44 PM Specimen ID: [id number] Specimen Type: Blood Specimen Collection Start Date: 10/06/2017 ??2:29 PM Specimen Received Date: 10/06/2017 ??9:44 PM Soham James M.D., Ph.D. LAB MICROBIOLOG Y - BLOOD ORDERABLES [facility] [address] [place] [address], [facility] from Last 3 Months or Most Recently Relevant to Health Maintenance Care Teams Customer Engineer Relationship Specialty Start Date End Date Shanae Ugarte APRN, C.N.P. [address] [place] [address] PCP - General 11/24/23
--- OUTSIDE RECORDS SUMMARY | 2023-11-29 10:28 | XMS_ITS | Encounter Summary ---
Author Organization [facility] Address [address] [place] [address] Care Team Providers Care Securities Broker Name Role Phone Shanae Ugarte APRN, C.N.P. Primary Care Provide r Reason for Visit * Reason Comments Med Refill Encounter Details Date Type Department Care Team (Late st Contact Info) Description 11/27/2023 Refill Department of Family Medicine, [facility], in [address] [phone] Shanae Ugarte APRN, C.N.P. [address] [place] [phone] Med Refill Social History Tobacco Use Types [...] Miscellaneous Notes * Telephone Encounter - Edita Rios - 11/27/2023 7:37 AM CDT Lab Results Component Value Date HGBA1C 8.6 (H) 10/11/2023 documented in this encounter Plan of Treatment Not on file documented as of this encounter Visit Diagnoses Diagnosis 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) documented in this encounter Additional Health Concerns Assessment Noted Time PHQ-9 Depression Total Score: 5 10/11/19 9:23 PM CDT documented as of this encounter Care Teams Securities Broker Relationship Specialty Start Date End Date Shanae Ugarte APRN, C.N.P. [address] [place] [address] PCP - General 11/24/23 documented as of this encounter
--- OUTSIDE RECORDS SUMMARY | 2023-11-29 10:28 | XMS_ITS ---
Author Organization [facility] Address [address] [place] [address] Care Team Providers Care Tire Balancer Name Role Phone Unavailable Unavailable Unavailable Surgery Details Not on file Complications Check Surgery Details section. Procedure Estimated Blood Loss Check Surgery Details section. Procedure Findings Check Surgery Details section. Procedure Specimens Taken Check Surgery Details section.
--- OUTSIDE RECORDS SUMMARY | 2023-11-29 10:28 | XMS_ITS | Continuity of Care Document ---
Author Organization [facility] Address [address] [place] [address] Phone Care Team Providers Care Solution Specialist Name Role Phone Roshni Rousseau DPT Unavailable [...] Providers Copied on Encounter [facility], [address], [place], [place], [id number], [place] tel:[phone] [place] [facility] No Information 3 Soham Barakat. [address], [address], [place], [address], [place]. tel:[phone] [facility], [address], [place], [place], [id number], [place] tel:[phone] [facility] Spinal stenosis, lumbar region with neurogenic claudicationRadic ulopathy, lumbar regionType 2 diabetes mellitus with diabetic neuropathy, unsp 3 Soham Barakat. [address], [address], [place], [address], [place]. tel:[phone] Referring Provider: Laron Basurto, [address], [place], [address] . tel:[phone] Psychiatric Diagnostic Evaluation Telephone Only [facility], [address], [place], [place], [id number], [place] tel:[phone] [facility] Pain disorder with related psychological factors 3 Selwyn Pabon. [address], [place], [address], [place]. tel:[phone] Referring Provider: Laron Basurto, [address], [place], [address] . tel:[phone] [facility], [address], [place], [place], [id number], [place] tel:[phone] [facility] Spinal stenosis, lumbar region with neurogenic claudicationRadic ulopathy, lumbar region 3 Foster Sam. [address], [place], [address], [place]. tel:[phone] Referring Provider: Laron Basurto, [address], [place], [address] . tel:[phone] Est Pt [facility], [address], [place], [place], [id number], [place] tel:[phone] [facility] back pain (chief complaint) Spinal stenosis, lumbar region with neurogenic claudicationType 2 diabetes mellitus w/ diabetic neuropathyRadicul opathy, lumbar regionBody mass index (BMI) 40.0-44.9, adult 3 [place] Sam. [address], [place], [address], [place]. tel:[phone] Referring Provider: Laron Basurto, [address], [place], [address] . tel:[phone] New Pt Eval [address] Min [facility], [facility], [address], [place], [place], [id number], [place] tel:[phone] [facility] back pain (chief complaint) Body mass index (BMI) 40.0-44.9, adultSpinal stenosis, lumbar region with neurogenic claudicationRadic ulopathy, lumbar regionType 2 diabetes mellitus w/ diabetic neuropathy Dec- 3 Foster Sam. [address], [place], [address], [place]. tel:[phone] Referring Provider: Laron Basurto, [address], [place], [address] . tel:[phone] Family History Family Member Type Diagnosis Age At Onset No Information Payers Payer name Insurance type Covered alliance party ID Bernice galicia(s) Medicare Part B AKUA [id number] [employer] [id number] Social History Type Description Quantity Date Captured [...] (related to Radiculopathy, lumbar region) ordered Referral Referred To: Physical Therapy Ordered: Referrals: Physical Therapy. Evaluate and treat ordered Referral Ordered: Referrals: Behavioral Health. Evaluate and treat ordered History Of Present [...] No Information Instructions Date Instruction Additional Infor zachary - Schedule implant e valuation with physical therapy- Schedule implant evaluation with behavioral health- Prior authorization is in progress for MILD procedure, schedule when able- No RILEY follow up required Related to Spinal stenosis, lumbar region with neurogenic claudication Same plan of care as statement for above diagnosis, no changes Related to Radiculopathy, lumbar region - Prior authorizatio n in progress for [...] lumbar region -Requested medical r ecords from [facility]Order MRI of the lumbar spine at [facility] [...]
--- OUTSIDE RECORDS SUMMARY | 2023-11-29 10:28 | XMS_ITS | Clinical Summary ---
Author Organization [email or web address] Aff[facility] Address [place], [place] [address] Care Team Providers Care Systems Test Technician Name Role Phone Soham James MD Primary Care Provider [phone] Hao Drew MD Unavailable [phone] Allergies Active Allergy Reactions Criticality Noted Date Comments Esomeprazole Magnesium Nausea Only 11/12/2012 INCREASED ACID Penicillins Hives 04/15/2014 Qeyadbd-Tpu-Okv Reductase Inhibitors Nausea Only,Myalgia 04/15/2014 Medications Medication [...] mg) by mouth every morning. 90 Tablet 07/31/2023 Active rivaroxaban (Xarelto) 20 mg tabletIndications:Pa [...] 05/05/2015 Hyperlipidemia 05/05/2015 CAD (coronary artery disease), [place] coronary a rtery 10/30/2014 Systolic murmur 09/29/2014 [...] Department Care Team Description 10/06/2023 Lab Requisition [facility] [phone] Jessica Barrow MD 10/05/2023 9:48 AM CDT - 10/05/2023 11:59 PM CDT Hospital Encounter [facility] [id number] [place] [address] [address] [place] [address] Zeny Isaac, Samina Nolasco, PT Left without seen 10/05/2023 Travel 10/03/2023 Patient Outreach [facility] [address] [place] [address] Bess Conroy Brain Injury Rehab Care Coordination - [facility] 09/22/2023 Telephone [facility] [address] [place] [address] Hao Drew MD Results 09/21/2023 10:36 AM CDT - 09/21/2023 11:59 PM CDT Hospital Encounter [facility] [address] [place] [address] Zeny Isaac NP Bradshaw, Emily, PT 09/21/2023 Travel 09/14/2023 10:43 AM RECORDS MANAGEMENT CLERK - 09/14/2023 11:59 PM RECORDS MANAGEMENT CLERK Hospital Encounter [facility] [address] [place] [address] Zeny Isaac NP Bradshaw, Emily, PT 09/14/2023 Travel 09/07/2023 10:40 AM RECORDS MANAGEMENT CLERK - 09/07/2023 11:59 PM RECORDS MANAGEMENT CLERK Hospital Encounter [facility] [address] [place] [address] Zeny Isaac NP Bradshaw, Emily, PT 09/07/2023 Travel 09/06/2023 Telephone [facility] [address] [place] [address] Zeny Isaac NP LINUX SYSTEM ADMIN ASSESSMENT 08/31/2023 Telephone [facility] [address] [place] [address] Zeny Isaac NP No Driving (No driving until BTW) 08/31/2023 Orders Only [facility] [address] [place] [address] Zeny Isaac NP <No scans attached> from Last 3 Months Immunizations Name Administration [...] Comments Blood Pressure 130/70 08/17/2023 10:43 AM RECORDS MANAGEMENT CLERK Pulse 67 08/17/2023 10:43 AM RECORDS MANAGEMENT CLERK Temperature 36.7 ??C (98.1 ??F) 08/17/2023 10:[address] Respiratory Rate 20 08/17/2023 10:43 AM RECORDS MANAGEMENT CLERK Oxygen Saturation 100% 08/17/2023 10:43 AM RECORDS MANAGEMENT CLERK Inhaled Oxygen Concentration - - Weight 120.2 kg (265 lb) 07/31/2023 10:43 AM RECORDS MANAGEMENT CLERK Height 180.3 cm (5' 11) 07/31/2023 10:43 AM RECORDS MANAGEMENT CLERK Body Mass Index 36.96 07/31/2023 10:43 AM RECORDS MANAGEMENT CLERK Plan of Treatment Health Maintenance Due Date [...] 9, 08/18/2008 Medical Devices Implanted Type Area Rental Boats Caretaker Device Identifier Shelf Expiration Date Model / Serial / Lot Cmnt Bone Simplex Hv Gentamicin - [id number] Implanted:Qty: 2 on 04/28/2014 by Amrik Falcon MD at [facility] Left: Knee [employer] 11/06/2014 6195-1-001 # / / [id number] Patella [id number] Triathlon Asymmetric X3 - [id number] Implanted:Qty: 1 on 04/28/2014 by Amrik Falcon MD at [facility] Left: Knee [employer] 02/06/2019 5551-G-350 # / / [id number] Fem Lt Sz7 Triathlon Post Stbznon Pors - [id number] Implanted:Qty: 1 on 04/28/2014 by Amrik Falcon MD at [facility] Left: Knee [employer] 02/06/2018 5515-F-701 # / / [id number] Baseplate Tib Sz6 Triathlon Pe - [id number] Implanted:Qty: 1 on 04/28/2014 by Amrik Falcon MD at [facility] Left: Knee [employer] 12/07/2018 5521-B-600 # / / [id number] Insert Knee Sz6 11mm Triathlonpost Stbz X3 - [id number] Implanted:Qty: 1 on 04/28/2014 by Amrik Falcon MD at [facility] Left: Knee [employer] 02/06/2019 5532-G-611 # / / [id number] Triathlon X3 Asymmetric Patella [id number] - [id number] Implanted:Qty: 1 on 08/14/2019 by Amrik Falcon MD at [facility] Right: Knee [employer] 02/19/2024 5551-G-381 -E / / [id number] Triathlon X3 Tibial Bearing Insert Cs Valery 5 Typ Cs Thkns 11mm - [id number] Implanted:Qty: 1 on 08/14/2019 by Amrik Falcon MD at [facility] Right: Knee [employer] 03/24/2024 5531-G-511 -E / / [id number] Cmnt Bone Simplex Hv - [id number] Implanted:Qty: 1 on 08/14/2019 by Amrik Falcon MD at [facility] Right: Knee [employer] 12/07/2020 6194-1-001 # / / [id number] Cmnt Bone Simplex Hv Gentamicin - [id number] Implanted:Qty: 1 on 08/14/2019 by Amrik Falcon MD at [facility] Right: Knee [employer] 06/08/2020 6195-1-001 # / / [id number] Fem Rt Sz6 Triathlon Cruc Ret Co Cr - [id number] Implanted:Qty: 1 on 08/14/2019 by Amrik Falcon MD at [facility] Right: Knee [employer] 01/11/2024 5510-F-602 # / / [id number] Baseplate Tib Sz5 Triathlon Pe - [id number] Implanted:Qty: 1 on 08/14/2019 by Amrik Falcon MD at [facility] Right: Knee [employer] 04/17/2024 5521-B-500 # / / [id number] Procedures Procedure Name Priority Date/Time Associated Diagnosis Comments REFERRAL ID/SUSC,NONURINE Routine 10/06/2023 11:30 AM CDT EXTENDED HOLTER Routine 09/20/2023 Paroxysmal atrial fibrillation (HC) from Last 3 Months Results * (ABNORMAL) REFERRAL ID/SUSC,NONURINE (10/06/2023 11:30 AM CDT) CULTURE RESULT(A) 10/10/2023 10:37 AM CDT [facility] CULTURE Streptococcus anginosus 10/10/2023 10:37 AM CDT [facility] Other Client Collect / Unknown 10/06/2023 11:30 AM CDT 10/06/2023 9:05 PM CDT Narrative Organism Antibiotic Method Susceptibility Streptococcus anginosus PENICILLIN <=0.06: S Streptococcus anginosus ERYTHROMYCIN R Streptococcus anginosus CLINDAMYCIN R Streptococcus anginosus VANCOMYCIN S Streptococcus anginosus CLARITHROMYCIN R Jessica Barrow MD MICROBIOLOGY [facility] [address] [place] [address], * EXTENDED HOLTER (09/20/2023) Hao Drew MD [...] 11:50 PM 08/09/2018 3:08 PM Care Teams Systems Test Technician Relationship Specialty Start Date End Date Soham James MD [address] [place] [phone] PCP - General Family Practice 04/10/14 Hao Drew MD [address] [facility] [address] [place] [address] Cardiology Cardiovascular Disease 12/30/19
--- OUTSIDE RECORDS SUMMARY | 2023-11-29 10:28 | XMS_ITS | Clinical Summary ---
Author Organization [facility] Address [address] [place] [address] Care Team Providers Care Business Control Specialist Name Role Phone Shanae Ugarte APRN, C.N.P. Primary Care Provide r Source Comments Patient records contain information from all sites at [facility]. For routine questions regarding patient records, call [phone] during business hours, M-F 8:00 AM - 5:00 PM Central Time. Record requests for emergency care only can be directed to [phone] at any time.[facility] Allergies Active Allergy Reactions Criticality Noted Date Comments Esomeprazole Magnesium Nausea Only 11/12/2012 INCREASED ACID Penicillins Hives (Reselect Reaction) 04/15/2014 Iirrljo-Ebp-Kry Reductase Inhibitors Myalgia 04/15/2014 Medications Medication Sig [...] Description 11/27/2023 Refill Department of Family Medicine, [facility], [address] [phone] Shanae Ugarte APRN CJoshN.P. Med Refill 11/06/2023 Clinical Communication Department of Family [facility], [facility], [address] [phone] Soham James M.D., Ph.D. [facility] Form ([facility] (PT Outpatient Eval 11/02/23) 10/23/2023 Clinical Communication Department of Family Medicine, [facility], [address] [address] Soham James M.D., Ph.D. Form Review ([facility]. diabetic footwear ) 10/18/2023 Clinical Communication Department of Family Medicine, [facility], [address] [phone] Soham James M.D., Ph.D. 10/12/2023 Clinical Communication Department of Family Medicine, [facility], [address] [address] Shoam James M.D., Ph.D. PT Referral 10/11/2023 6:00 PM CDT Office Visit Department of Family Medicine, [facility], [address] [phone] Soham James M.D., Ph.D. Coronary Artery Disease [...] (HCC) 09/17/2023 Nurse Triage Department of Family [facility], [facility], [address] [address] Tracey Thompson R.N. Med Question 09/17/2023 Refill Department of Family Medicine, [facility], [address] [place] [address] Soham James M.D., Ph.D. Med Refill 09/15/2023 Refill Department of [facility], [facility], [address] [place] [address] Soham James M.D., Ph.D. Med Change Request 09/14/2023 Refill Department of Family Medicine, [facility], in [address] [place] [address] Soham James M.D., Ph.D. Med Refill 09/14/2023 Clinical Communication Department of [facility], [facility], [address] [place] [address] Soham James M.D., Ph.D. from Last 3 Months Immunizations Name Administration [...] 177 cm (5' 9.69) 05/31/2023 2:47 PM PROFESSOR OF ANTHROPOLOGY Body Mass Index 39.32 05/31/2023 2:47 PM PROFESSOR OF ANTHROPOLOGY Plan of Treatment Health Maintenance Due Date Last Done Comments Dilated Eye Exam 1945 Zoster Vaccines (1 of 2) 1997 Hepatitis B Vaccines (1 of 3 - Risk 3-dose series) 2007 DTaP,Tdap,and Td Vaccines (2 - Td or Tdap) 02/24/2020 02/23/2010 COVID-19 Vaccine (7 2022-2 4 season) 2023 05/12/2023, 05/09/2022, 01/30/2022, [...] FIT Discontinued Medical Devices Implanted Type Area Compass Operator Device Identifier Shelf Expiration Date Model / Serial / Lot Knee Implant- 0 Implanted:08/14 by Amrik Falcon M.D. (Quantity not on file) Knee Implant Knee Procedures Procedure Name Priority Date/Time Associated Diagnosis Comments HEMOGLOBIN A1C, B Routine 10/11/2023 7:1 2 PM CDT Diabetes Mellitus Type 2 With Diabetic Neuropathy (HCC) EXTI SODIUM, S/P Routine 07/05/2023 9:05 AM PROFESSOR OF ANTHROPOLOGY EXTI BASIC METABOLIC PANEL, S/P Routine 07/04/2023 11:49 PM PROFESSOR OF ANTHROPOLOGY EXTI THYROID-STIMULATI NG HORMONE-SENSITIVE (S-TSH), S Routine 06/19/2023 5:47 AM PROFESSOR OF ANTHROPOLOGY ALBUMIN, RANDOM, U Routine 05/31/2023 2:26 PM PROFESSOR OF ANTHROPOLOGY Diabetes Mellitus Type 2 With Diabetic Neuropathy [...] LAB BLOOD ADD-O N Performing Organization Address [facility] Co de Phone Number [place] [address], [place] [address] * (ABNORMAL) Albumin, Random, Urine (05/31/2023 2:26 PM PROFESSOR OF ANTHROPOLOGY) Microalbumin 53.8 mg/L 05/31/2023 2:48 PM PROFESSOR OF ANTHROPOLOGY CNFL Creatinine 115 mg/dL 05/31/2023 2:48 PM PROFESSOR OF ANTHROPOLOGY CNFL Albumin/Creatinin e Ratio 47(H) <17 mg/g 05/31/2023 2:48 PM PROFESSOR OF ANTHROPOLOGY CNFL Urine (Urine, Midstream) 05/31/2023 2:26 PM PROFESSOR OF ANTHROPOLOGY 05/31/2023 2:26 PM PROFESSOR OF ANTHROPOLOGY Soham James M.D., Ph.D. LAB URINE ORDER SREEKANTH Performing Organization Address [facility] Co de Phone Number [address] [address], [facility] [place] [address] * US Aorta AAA Screening (05/05/2020 10:41 [...] negative for aneurysm. Soham James M.D., Ph.D. [facility] US PROCEDUR ES * HCV AB Scrn w/Reflex to HCV PCR, S (10/06/2017 2:29 PM CDT) HCV Ab Screen, S Nonreactive Nonreactive 10/09/2017 10:35 AM CDT [facility] Blood 10/06/2017 2:29 PM CDT 10/06/2017 9:44 PM CDT Narrative [facility] - 10/09/2017 10:35 AM CDT Specimen Information: Specimen ID: [id number] Specimen Type: Blood Specimen Collection Start Date: 10/06/2017 ??2:29 PM Specimen Received Date: 10/06/2017 ??9:44 PM Specimen ID: [id number] Specimen Type: Blood Specimen Collection Start Date: 10/06/2017 ??2:29 PM Specimen Received Date: 10/06/2017 ??9:44 PM Soham James M.D., Ph.D. LAB MICROBIOLOG Y - BLOOD ORDERABLES [facility] [address] [place] [address] from Last 3 Months or Most Recently Relevant to Health Maintenance Care Teams Business Control Specialist Relationship Specialty Start Date End Date Shanae Ugarte APRN, C.N.P. [facility] [place] [phone] PCP - General 11/24/23
--- OUTSIDE RECORDS SUMMARY | 2023-11-29 10:28 | XMS_ITS | Encounter Summary ---
Author Organization [facility] Address [address] [place] [address] Care Team Providers Care Infrastructure Technician Name Role Phone Soham James M.D., Ph.D. Primary Care Provider Reason for Visit * Reason Onset Date Comments Form Review 10/23/2023 [facility] diabetic footwear Encounter Details Date Type Department Care Team (Latest Contact Info) Description 10/23/2023 Clinical Communication Department of Family Medicine, [facility], in [address] [phone] Soham James M.D., Ph.D. [address] [place] [address] Form Review ([facility] diabetic footwear ) Social History Tobacco [...] Notes * Telephone Encounter - Juliana Simon 10/25/2023 9:03 AM CDT Form has been faxed back to the facility, copy sent to HIM. * Telephone Encounter - Josefina Mackey - 10/23/2023 7:35 PM CDT Form was emailed to Soham James M.D., Ph.D. for electronic review/signature. CLIENT SUPPORT ANALYST: [facility] PHONE NUMBER: [phone] INFO REQUESTED: diabetic footwear INSTRUCTIONS: Fax information to [phone] documented in this encounter Plan of Treatment Not on file documented as of this encounter Visit Diagnoses Not on filedocumented in this encounter Additional Health Concerns Assessment Noted Time PHQ-9 Depression Total Score: 5 10/11/19 9:23 PM CDT documented as of this encounter Care Teams Infrastructure Technician Relationship Specialty Start Date End Date Soham James M.D., Ph.D. PCP - General 12/22/16 11/23/23 documented as of this encounter
--- OUTSIDE RECORDS SUMMARY | 2023-11-29 10:28 | XMS_ITS | Encounter Summary ---
Author Organization [facility] Address [address] [place] [address] Care Team Providers Care Batch Weigher Name Role Phone Soham James M.D., Ph.D. Primary Care Provider Reason for Referral * Outpatient (Routine) - Authorized Specialty Diagnoses / Procedures Referred By Rj rush Referred To Contact Diagnoses Pain Neck Pain Shoulder Right Soham James M.D., Ph.D. [address] [place] [address] External, Referring Provider Referral ID Status Reason Start Date Expiration Date Visits Requested Visits Authorized [id number] Authorized Patient Preference 10/11/2023 04/11/2025 1 1 Reason for Visit * Reason Comments Chronic Disease Management Follow up had heart attack/stroke. Would like to restart Ozempic * Appointment Request (Routine) - Closed Specialty Diagnoses / Procedures Referred By Rj rush Referred To Contact Family Medicine Referral ID Status Reason Start Date Expiration Date Visits Re quested Visits Authorized [id number] Closed 07/20/2023 07/19/2024 1 1 Encounter Details Date Type Department Care Team (Latest Contact Info) Description 10/11/2023 6:00 PM CDT Office Visit Department of Family Medicine, [facility], in [address] [phone] Soham James M.D., Ph.D. 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) - gabapentin (NEURONTIN) 100 mg capsule; Take 2 capsules (200 mg total) by mouth 3 (three) times a day for 14 days, THEN 3 capsules (300 mg total) 3 (three) times a day. Pain Shoulder Right - External referral ancillary ([facility] [facility]) Other orders - semaglutide (OZEMPIC) 2 mg/dose [...] LAB BLOOD ADD-O N Performing Organization Address [facility]/State/ZIP Co de Phone Number [facility] [address] [place] [address], [facility] in [address] [address] documented in this encounter Visit Diagnoses Diagnosis [...] documented as of this encounter Care Teams Batch Weigher Relationship Specialty Start Date End Date Soham James M.D., Ph.D. PCP - General 12/22/16 11/23/23 documented as of this encounter
--- OUTSIDE RECORDS SUMMARY | 2023-11-29 10:28 | XMS_ITS | Encounter Summary ---
Author Organization [facility] Address [address] [place] [address] Care Team Providers Care Supervisor Refractory Products Name Role Phone Soham James M.D., Ph.D. Primary Care Provider Reason for Visit * Reason Onset Date Comments P[employer] Form 11/06/2023 [facility] (PT Outpatient Eval 11/02/23 Encounter Details Date Type Department Care Team (Latest Contact Info) Description 11/06/2023 Clinical Communication Department of Family Medicine, [facility], in [address] [phone] Soham James M.D., Ph.D. [address] [place] [address] [employer] Form ([facility] (PT Outpatient Eval 11/02/23) Social [...] encounter Miscellaneous Notes * Telephone Encounter - Madelyn Maranda Kaye - 11/07/2023 9:14 AM CDT Completed form(s) faxed back to [facility], and sent to [facility] for scanning. * Telephone Encounter - Madelyn Maranda Kaye - 11/06/2023 4:50 PM CDT Form was routed to Soham James M.D., Ph.D. for electronic review/signature. TELEGRAPH AND TELETYPE OPERATOR: [facility] PHONE NUMBER: [phone] INFO REQUESTED: PT Outpatient Eval 11/02/23 INSTRUCTIONS: Fax information to [phone] documented in this encounter Plan of Treatment Not on file documented as of this encounter Visit Diagnoses Not on filedocumented in this encounter Additional Health Concerns Assessment Noted Time PHQ-9 Depression Total Score: 5 10/11/19 24 9:23 PM CDT documented as of this encounter Care Teams Supervisor Refractory Products Relationship Specialty Start Date End Date Soham James M.D., Ph.D. PCP - General 12/22/16 11/23/23 documented as of this encounter
--- OUTSIDE RECORDS SUMMARY | 2023-11-29 10:29 | XMS_ITS | Encounter Summary ---
Author Organization [facility] Address [address] [place] [address] Care Team Providers Care Kitchen Stewardess Name Role Phone Soham James M.D., Ph.D. Primary Care Provider Reason for Visit * Reason Comments Med Change Request Encounter Details Date Type Department Care Team (Late st Contact Info) Description 09/15/2023 Refill Department of Family Medicine, [facility], in [address] [phone] Soham James M.D., Ph.D. [address] [place] [phone] Med Change Request Social History Tobacco Use [...] Noted Time PHQ-9 Depression Total Score: 3 11/22/20 23 3:22 PM CARBON SEQUESTRATION PLANT MANAGER documented as of this encounter Care Teams Kitchen Stewardess Relationship Specialty Start Date End Date Soham James M.D., Ph.D. PCP - General 12/22/16 11/23/23 documented as of this encounter
--- OUTSIDE RECORDS SUMMARY | 2023-11-29 10:29 | XMS_ITS | Encounter Summary ---
Author Organization [facility] Address [address] [place] [address] Care Team Providers Care General Superintendent Name Role Phone Soham James M.D., Ph.D. Primary Care Provider Reason for Visit * Reason Onset Date Comments Med Question 09/17/2023 Encounter Details Date Type Department Care Team (Late st Contact Info) Description 09/17/2023 Nurse Triage Department of Family Medicine, [facility], in [address] [phone] Tracey Thompson R.N. [address] [place] [address] Med Question Social History Tobacco [...] regarding Med Question. Assessment Concern: Sunita from [facility] pharmacy calls stating that patient called today to refill his Basaglar insulin because he is completely out. Reviewed medical record informed Sunita that an Rx was sent on 11/07/2022 which [facility] did not have. Verbal order provided to Sunita at [facility] The recommended disposition is Other. documented in this encounter Plan of Treatment Not on file documented as of this encounter Visit Diagnoses Not on filedocumented in this encounter Additional Health Concerns Assessment Noted Time PHQ-9 Depression Total Score: 3 05/31/20 23 3:22 PM CANDY FEEDER documented as of this encounter Care Teams General Superintendent Relationship Specialty Start Date End Date Soham Jaems M.D., Ph.D. PCP - General 12/22/16 11/23/23 documented as of this encounter
--- OUTSIDE RECORDS SUMMARY | 2023-11-29 10:29 | XMS_ITS | Encounter Summary ---
Author Organization [facility] Address [address] [place] [address] Care Team Providers Care Entertainment Lawyer Name Role Phone Soham James M.D., Ph.D. Primary Care Provider Reason for Visit * Reason Onset Date Comments Form Review 08/21/2023 Charles kay [id number] Encounter Details Date Type Department Care Team (Latest Contact Info) Description 08/21/2023 Clinical Communication Department of Family Medicine, [facility], in [address] [phone] Soham James M.D., Ph.D. [address] [place] [address] Form Review (Charles Crum - order [id number]) Social History Tobacco Use Types Packs/Day Years [...] back to the listed facility. Scanned into [facility] FOOD SHIFT LEAD * Telephone Encounter - Ivonne Rivera - 08/21/2023 12:40 PM CST Form was emailed to Dr James for electronic review/signature. KNIT GOODS PRESS HAND: [facility] PHONE NUMBER: [phone] INFO REQUESTED: order [id number] INSTRUCTIONS: Fax information to [phone] FOOD SHIFT LEAD documented in this encounter Plan of Treatment Not on file documented as of this encounter Visit Diagnoses Not on filedocumented in this encounter Additional Health Concerns Assessment Noted Time PHQ-9 Depression Total Score: 3 05/31/20 23 3:22 PM FAST FOOD SHIFT LEAD documented as of this encounter Care Teams Entertainment Lawyer Relationship Specialty Start Date End Date Soham James M.D., Ph.D. PCP - General 12/22/16 11/23/23 documented as of this encounter
--- OUTSIDE RECORDS SUMMARY | 2023-11-29 10:29 | XMS_ITS | Encounter Summary ---
Author Organization [facility] Address [address] [place] [address] Care Team Providers Care Methods Specialist Name Role Phone Soham James M.D., Ph.D. Primary Care Provider Reason for Visit * Reason Onset Date Comments Form Review 08/21/2023 [facility] ( Order [id number] Encounter Details Date Type Department Care Team (Latest Contact Info) Description 08/21/2023 Clinical Communication Department of Family Medicine, [facility], in [address] [phone] Soham James M.D., Ph.D. [address] [place] [address] Form Review ([facility] ( Order [id number]) Social History Tobacco Use Types Packs/Day Years [...] the listed facility. Scanned into [facility] IBILITY EXAMINER * Telephone Encounter - Jacki Sparrow - 08/21/2023 3:36 PM CST Form was emailed to Soham James MD for electronic review/signature. NIGHT GUARD: [facility] PHONE NUMBER: [phone] INFO REQUESTED: Order [id number] INSTRUCTIONS: Fax information to [phone] IBILITY EXAMINER documented in this encounter Plan of Treatment Not on file documented as of this encounter Visit Diagnoses Not on filedocumented in this encounter Additional Health Concerns Assessment Noted Time PHQ-9 Depression Total Score: 3 05/31/20 23 3:22 PM ELIGIBILITY EXAMINER documented as of this encounter Care Teams Methods Specialist Relationship Specialty Start Date End Date Soham James M.D., Ph.D. PCP - General 12/22/16 11/23/23 documented as of this encounter
--- OUTSIDE RECORDS SUMMARY | 2023-11-29 10:29 | XMS_ITS | Encounter Summary ---
Author Organization [facility] Address [address] [place] [address] Care Team Providers Care Ip Technology Transactions Attorney Name Role Phone Soham James M.D., Ph.D. Primary Care Provider Reason for Visit * Reason Onset Date Comments Form Review 08/22/2023 [employer] Count includes the [facility] Order [id number] Encounter Details Date Type Department Care Team (Latest Contact Info) Description 08/22/2023 Clinical Communication Department of Family Medicine, [facility], in [address] [phone] Soham James M.D., Ph.D. [address] [place] [address] Form Review ([employer] [facility] Order [id number] ) Social History Tobacco Use Types Packs/Day [...] back to facility and sent for scanning. EM ADMINISTRATION ADVISOR * Telephone Encounter - Tracey Eng - 08/22/2023 11:26 AM CST Form was emailed to Dr. James for electronic review/signature. PLAYERS CLUB REPRESENTATIVE: [facility] PHONE NUMBER: [phone] INFO REQUESTED: Order [id number] INSTRUCTIONS: Fax information to [phone] EM ADMINISTRATION ADVISOR documented in this encounter Plan of Treatment Not on file documented as of this encounter Visit Diagnoses Not on filedocumented in this encounter Additional Health Concerns Assessment Noted Time PHQ-9 Depression Total Score: 3 05/31/20 23 3:22 PM SYSTEM ADMINISTRATION ADVISOR documented as of this encounter Care Teams Ip Technology Transactions Attorney Relationship Specialty Start Date End Date Soham James M.D., Ph.D. PCP - General 12/22/16 11/23/23 documented as of this encounter
--- OUTSIDE RECORDS SUMMARY | 2023-11-29 10:29 | XMS_ITS | Encounter Summary ---
Author Organization [facility] Address [address] [place] [address] Care Team Providers Care Thread Milling Machine Set Up Operator Name Role Phone Soham James M.D., Ph.D. Primary Care Provider Reason for Visit * Reason Comments Med Refill Encounter Details Date Type Department Care Team (Late st Contact Info) Description 08/23/2023 Refill Department of Family Medicine, [facility], in [address] [phone] Soham James M.D., Ph.D. [address] [place] [phone] Med Refill Social History Tobacco Use Types [...] renew or reject as appropriate. Thank you. ING MACHINE OPERATOR documented in this encounter Plan of Treatment Not on file documented as of this encounter Visit Diagnoses Diagnosis Diabetes Mellitus Type 2 With Diabetic Neuropathy (HCC) documented in this encounter Additional Health Concerns Assessment Noted Time PHQ-9 Depression Total Score: 3 05/31/20 23 3:22 PM WINDING MACHINE OPERATOR documented as of this encounter Care Teams Thread Milling Machine Set Up Operator Relationship Specialty Start Date End Date Soham James M.D., Ph.D. PCP - General 12/22/16 11/23/23 documented as of this encounter
--- OUTSIDE RECORDS SUMMARY | 2023-11-29 10:29 | XMS_ITS | Encounter Summary ---
Author Organization [place] Address [address] [place] [address] Care Team Providers Care Premium Cancellation Clerk Name Role Phone Soham James MD Primary Care Provider [phone] Encounter Details Date Type Department Care Team (Late st Contact Info) Description 2023 Telephone [facility] [address] [facility] [address] [place] [address] Piper Castanon, DPMikki, Podiatry/Foot and Ankle Surgery [address] [place], [place] [phone] Social History Tobacco Use Types Packs/Day Years [...] encounter Miscellaneous Notes * Telephone Encounter - Mark Rodrigez - 2023 9:27 AM CST Consent to communicate found on file. Spoke with patient about scheduling him due to the referral we received from Dr. Soham James ([facility]) via fax this morning. Scheduled patient to see Dr. Castanon on June 20 in [place]. Patient requested the building address be sent to him via mail, so a letter was sent out. Patient was appreciative of the call. Dionte Rodrigez, Visit Old Coin Dealer CAL IMAGING SPECIALIST documented in this encounter Plan of Treatment Not on file documented as of this encounter Visit Diagnoses Not on filedocumented in this encounter Care Teams Premium Cancellation Clerk Relationship Specialty Start Date End Date Soham James MD [facility] [address] [place] [address] PCP - General Family Practice 07/25/12 documented as of this encounter
--- OUTSIDE RECORDS SUMMARY | 2023-11-29 10:29 | XMS_ITS | Encounter Summary ---
Author Organization [facility] Address [address] [place] [address] Care Team Providers Care Machine Captain Name Role Phone Soham James M.D., Ph.D. Primary Care Provider Encounter Details Date Type Department Care Team (Late st Contact Info) Description 09/14/2023 Clinical Communication Department of Family Medicine, [facility], in [address] [phone] Soham James M.D., Ph.D. [address] [place] [address] Social History Tobacco Use Types [...] Miscellaneous Notes * Telephone Encounter - Shanae Martinez L.P.N. - 09/15/2023 9:37 AM CST Information Discussed Let patient know requested prescription was sent in and PA was started for insurance. Transferred to scheduling for office visit to renew CPAP prescription. PLAN Disposition/Recommendation: patient transferred to the appointment desk Information/Education: patient/caller able to teach back Caller agreeable to plan of care: yes The following references were used: nursing clinical judgement LING ROOM WORKER * Telephone Encounter - Marialuisa Benson - [...] send all scheduling replies to scheduling pool. LING ROOM WORKER documented in this encounter Plan of Treatment Not on file documented as of this encounter Visit Diagnoses Diagnosis Diabetes Mellitus Type 2 With Diabetic Neuropathy (HCC) documented in this encounter Additional Health Concerns Assessment Noted Time PHQ-9 Depression Total Score: 3 05/31/20 23 3:22 PM BOTTLING ROOM WORKER documented as of this encounter Care Teams Machine Captain Relationship Specialty Start Date End Date Soham James M.D., Ph.D. PCP - General 12/22/16 11/23/23 documented as of this encounter
--- OUTSIDE RECORDS SUMMARY | 2023-11-29 10:29 | XMS_ITS | Encounter Summary ---
Author Organization [facility] Address [address] [place] [address] Care Team Providers Care Leadite Heater Name Role Phone Soham James M.D., Ph.D. Primary Care Provider Reason for Visit * Reason Comments Med Refill Encounter Details Date Type Department Care Team (Late st Contact Info) Description 09/17/2023 Refill Department of Family Medicine, [facility], in [address] [phone] Soham James M.D., Ph.D. [address] [place] [phone] Med Refill Social History Tobacco Use Types [...] Total Score: 3 05/31/20 23 3:22 PM OCULARIST documented as of this encounter Care Teams Leadite Heater Relationship Specialty Start Date End Date Soham James M.D., Ph.D. PCP - General 12/22/16 11/23/23 documented as of this encounter
--- OUTSIDE RECORDS SUMMARY | 2023-11-29 10:29 | XMS_ITS | Encounter Summary ---
Author Organization [facility] Address [address] [place] [address] Care Team Providers Care Channel Worker Name Role Phone Soham James M.D., Ph.D. Primary Care Provider Reason for Visit * Reason Comments Med Refill Encounter Details Date Type Department Care Team (Late st Contact Info) Description 09/14/2023 Refill Department of Family Medicine, [facility], in [address] [phone] Soham James M.D., Ph.D. [address] [place] [phone] Med Refill Social History Tobacco Use Types [...] Total Score: 3 11/22/20 23 3:22 PM LEAD FORMER documented as of this encounter Care Teams Channel Worker Relationship Specialty Start Date End Date Soham James M.D., Ph.D. PCP - General 12/22/16 11/23/23 documented as of this encounter
--- OUTSIDE RECORDS SUMMARY | 2023-11-29 10:29 | XMS_ITS | Referral Summary ---
Author Organization [facility] Address [address] [place] [address] Care Team Providers Care Asbestos Handler Name Role Phone Soham James MD Primary Care Provider [phone] [phone] Allergies Active Allergy Reactions Criticality Noted Date [...] Comments Blood Pressure 118/67 08/07/2018 9:20 AM AUTOMOTIVE ELECTRICAL HELPER Pulse 64 08/07/2018 9:20 AM AUTOMOTIVE ELECTRICAL HELPER Temperature 36.6 ??C (97.9 ??F) 08/21/2012 8:20 AM CS T Respiratory Rate 20 08/07/2018 9:30 AM AUTOMOTIVE ELECTRICAL HELPER Oxygen Saturation 91% 08/07/2018 9:27 AM AUTOMOTIVE ELECTRICAL HELPER Inhaled Oxygen Concentration - - Weight 124.7 kg (275 lb) 08/07/2018 7:52 AM AUTOMOTIVE ELECTRICAL HELPER Height 177.8 cm (5' 10) 08/07/2018 7:52 AM AUTOMOTIVE ELECTRICAL HELPER Body Mass Index 39.46 08/07/2018 7:52 AM AUTOMOTIVE ELECTRICAL HELPER Plan of Treatment Not on file Procedures Procedure Name Priority Date/Time Associated Diagnosis Comments COLONOSCOPY Routine 08/07/2018 8:13 AM AUTOMOTIVE ELECTRICAL HELPER GLUCOSE BY METER Routine 08/21/2012 7:19 AM AUTOMOTIVE ELECTRICAL HELPER from Last 3 Months or Most Recently Relevant to Health Maintenance Results * COLONOSCOPY (08/07/2018 8:13 AM AUTOMOTIVE ELECTRICAL HELPER) [facility] COLONOSCOPY [facility] Endoscopy Department ___ Patient Name: Shin Best ? Procedure Date: 08/07/2018 8:13 AM ? Date of : 1945 ? Admit Type: Outpatient Age: 73 ? Room: 3 Note Status: Finalized ?Attending MD: Abraham Milner , Total Sedation Time: 41 mins of continuous bedside 1:1 Instrument Name: 325 [id number] AdultColonoscope ___ Procedure: ?Colonoscopy Indications: ?Screening for [...] Procedure Code(s): ? --- Professional --- ? 15694, Colonoscopy, flexible; with removal of tumor(s), polyp(s), or ? other lesion(s) by snare technique Diagnosis Code(s): ? --- Professional --- ? Z12.11, Encounter for screening for malignant neoplasm of colon ? K62.1, Rectal polyp CPT copyright 2017 [employer]. All rights reserved. The codes documented in this report are preliminary and upon breaker up machine operator review may be revised to meet current compliance requirements. Abraham Milner, 08/07/2018 9:10:30 AM I was physically present for the entire viewing portion of the exam. Abraham Milner Number of Addenda: 0 Note Initiated On: 08/07/2018 8:13 AM MRN: ?[id number] Procedure Date: ? 08/07/2018 8:13:49 AM Scope Withdrawal Time: 0 hours 13 minutes 27 seconds Total Procedure Duration: 0 hours 40 minutes 58 seconds Estimated Blood Loss: ? Scope In: 8:20:39 AM Scope Out: 9:01:37 AM RADIOLOGY RESULTS 08/07/2018 8:13 AM AUTOMOTIVE ELECTRICAL HELPER Soham James MD PROCEDURES RADIOLOGY RESULTS * Glucose by meter (08/21/2012 7:19 AM AUTOMOTIVE ELECTRICAL HELPER) Glucose 79 60 - 99 mg/dL POINT OF CARE TEST, GLUCOSE Comment:Dr/RN Notified 08/21/2012 7:19 AM AUTOMOTIVE ELECTRICAL HELPER 08/21/2012 7:25 AM AUTOMOTIVE ELECTRICAL HELPER Stacy Ayers MD [facility] POCT POINT OF CARE TEST, GLUCOSE from Last 3 Months or Most Recently Relevant to Health Maintenance Care Teams Asbestos Handler Relationship Specialty Start Date End Date Soham James MD [facility] [address] [place] [address] PCP - General Family Practice 07/25/12
--- OUTSIDE RECORDS SUMMARY | 2023-11-29 10:29 | XMS_ITS | Encounter Summary ---
Author Organization [facility] Address [address] [place] [address] Care Team Providers Care Reo Asset Manager Name Role Phone Soham James M.D., Ph.D. Primary Care Provider Reason for Visit * Reason Comments Med Change Request Encounter Details Date Type Department Care Team (Late st Contact Info) Description 08/23/2023 Refill Department of Family Medicine, [facility], in [address] [phone] Soham James M.D., Ph.D. [address] [place] [phone] Med Change Request Social History Tobacco Use [...] Total Score: 3 05/31/20 23 3:22 PM RESEARCH LIBRARIAN documented as of this encounter Care Teams Reo Asset Manager Relationship Specialty Start Date End Date Soham James M.D., Ph.D. PCP - General 12/22/16 11/23/23 documented as of this encounter
--- OUTSIDE RECORDS SUMMARY | 2023-11-29 10:29 | XMS_ITS | Clinical Summary ---
Author Organization [facility] Address [address] [place] [address] Care Team Providers Care Pellet Press Operator Name Role Phone Soham James MD Primary Care Provider +1 [phone] Allergies Active Allergy Reactions Criticality Noted Date [...] Comments Blood Pressure 118/67 08/07/2018 9:20 AM GROUND SUPPORT EQUIPMENT ASSEMBLER Pulse 64 08/07/2018 9:20 AM GROUND SUPPORT EQUIPMENT ASSEMBLER Temperature 36.6 ??C (97.9 ??F) 08/21/2012 8:20 AM CS T Respiratory Rate 20 08/07/2018 9:30 AM GROUND SUPPORT EQUIPMENT ASSEMBLER Oxygen Saturation 91% 08/07/2018 9:27 AM GROUND SUPPORT EQUIPMENT ASSEMBLER Inhaled Oxygen Concentration - - Weight 124.7 kg (275 lb) 08/07/2018 7:52 AM GROUND SUPPORT EQUIPMENT ASSEMBLER Height 177.8 cm (5' 10) 08/07/2018 7:52 AM GROUND SUPPORT EQUIPMENT ASSEMBLER Body Mass Index 39.46 08/07/2018 7:52 AM GROUND SUPPORT EQUIPMENT ASSEMBLER Plan of Treatment Health Maintenance Due Date [...] Diagnosis Comments COLONOSCOPY Routine 08/07/2018 8:13 AM GROUND SUPPORT EQUIPMENT ASSEMBLER GLUCOSE BY METER Routine 08/21/2012 7:19 AM GROUND SUPPORT EQUIPMENT ASSEMBLER from Last 3 Months or Most Recently Relevant to Health Maintenance Results * COLONOSCOPY (08/07/2018 8:13 AM GROUND SUPPORT EQUIPMENT ASSEMBLER) [facility] COLONOSCOPY [facility] Endoscopy Department ___ Patient Name: Shin Best ? Procedure Date: 08/07/2018 8:13 AM ? Date of : 1945 ? Admit Type: Outpatient Age: 73 ? Room: 3 Note Status: Finalized ?Attending MD: Abraham Milner , Total Sedation Time: 41 mins of continuous bedside 1:1 Instrument Name: 325 [id number] AdultColonoscope ___ Procedure: ?Colonoscopy Indications: ?Screening for [...] Procedure Code(s): ? --- Professional --- ? 78551, Colonoscopy, flexible; with removal of tumor(s), polyp(s), or ? other lesion(s) by snare technique Diagnosis Code(s): ? --- Professional --- ? Z12.11, Encounter for screening for malignant neoplasm of colon ? K62.1, Rectal polyp CPT copyright 2017 [employer]. All rights reserved. The codes documented in this report are preliminary and upon maintenance and repair worker review may be revised to meet current compliance requirements. Abraham Milner, 08/07/2018 9:10:30 AM I was physically present for the entire viewing portion of the exam. Abraham Milner Number of Addenda: 0 Note Initiated On: 08/07/2018 8:13 AM MRN: ?[id number] Procedure Date: ? 08/07/2018 8:13:49 AM Scope Withdrawal Time: 0 hours 13 minutes 27 seconds Total Procedure Duration: 0 hours 40 minutes 58 seconds Estimated Blood Loss: ? Scope In: 8:20:39 AM Scope Out: 9:01:37 AM RADIOLOGY RESULTS 08/07/2018 8:13 AM GROUND SUPPORT EQUIPMENT ASSEMBLER Soham James MD PROCEDURES RADIOLOGY RESULTS * Glucose by meter (08/21/2012 7:19 AM GROUND SUPPORT EQUIPMENT ASSEMBLER) Glucose 79 60 - 99 mg/dL POINT OF CARE TEST, GLUCOSE Comment:Dr/RN Notified 08/21/2012 7:19 AM GROUND SUPPORT EQUIPMENT ASSEMBLER 08/21/2012 7:25 AM GROUND SUPPORT EQUIPMENT ASSEMBLER Stacy Ayers MD LAB - BEAKER POCT Performing Organization Address City/[facility] Co de Phone Number POINT OF CARE TEST, GLUCOSE from Last 3 Months or Most Recently Relevant to Health Maintenance Care Teams Pellet Press Operator Relationship Specialty Start Date End Date Soham James MD [facility] [address] [place] [address] PCP - General Family Practice 07/25/12
--- OUTSIDE RECORDS SUMMARY | 2023-11-29 10:29 | XMS_ITS | Encounter Summary ---
Author Organization [facility] Address [address] [place] [address] Care Team Providers Care Brim Stretcher Name Role Phone Soham James M.D., Ph.D. Primary Care Provider Reason for Visit * Reason Comments Med Change Request Encounter Details Date Type Department Care Team (Late st Contact Info) Description 08/30/2023 Refill Department of Family Medicine, [facility], in [address] [phone] Soham James M.D., Ph.D. [address] [place] [address] Med Change Request Social History Tobacco Use [...] Total Score: 3 05/31/20 23 3:22 PM ADVOCACY DIRECTOR documented as of this encounter Care Teams Brim Stretcher Relationship Specialty Start Date End Date Soham James M.D., Ph.D. PCP - General 12/22/16 11/23/23 documented as of this encounter
[2023-11-29 11:38] LABS: Hemoglobin A1C* 9.3 % (0-5.6)
== END 2023-11-29 10:27 | disposition home or self-care (01) ==
LOC: WOUND 10:26
PROVIDERS: PCP Family Medicine; Visit Provider Surgery
DX: E11.621 Type 2 diabetes mellitus with foot ulcer (principal); L97.512 Non-pressure chronic ulcer of other part of right foot with fat layer exposed; I89.0 Lymphedema, not elsewhere classified; Z79.4 Long term (current) use of insulin; Z79.84 Long term (current) use of oral hypoglycemic drugs
CPT/HCPCS: 36415; 83036; 97597

== ENCOUNTER 2023-12-05 14:58 | Outpatient (CLI) | payer MEDICARE, BC, SELFPAY ==
--- OUTSIDE RECORDS SUMMARY | 2023-12-05 15:02 | XMS_ITS | Encounter Summary ---
Author Organization [facility] Address [address] [place] [address] Care Team Providers Care Sport Psychologist Name Role Phone Soham James M.D., Ph.D. Primary Care Provider Reason for Visit * Reason Onset Date Comments PT Referral 10/12/2023 Encounter Details Date Type Department Care Team (Late st Contact Info) Description 10/12/2023 Clinical Communication Department of Family Medicine, [facility], in [address] [phone] Soham James M.D., Ph.D. [address] [place] [address] PT Referral Social History Tobacco [...] documented as of this encounter Care Teams Sport Psychologist Relationship Specialty Start Date End Date Soham James M.D., Ph.D. PCP - General 12/22/16 11/23/23 documented as of this encounter
--- OUTSIDE RECORDS SUMMARY | 2023-12-05 15:02 | XMS_ITS | Encounter Summary ---
Author Organization [facility] Address [address] [place] [address] Care Team Providers Care Harnessmaker Name Role Phone Soham James M.D., Ph.D. Primary Care Provider Reason for Visit * Reason Onset Date Comments Form Review 10/23/2023 [facility] diabetic footwear Encounter Details Date Type Department Care Team (Latest Contact Info) Description 10/23/2023 Clinical Communication Department of Family Medicine, [facility], in [address] [phone] Soham James M.D., Ph.D. [address] [place] [address] Form Review ([facility] diabetic footwear ) Social History Tobacco [...] PM CDT Form was emailed to Soham Jmaes M.D., Ph.D. for electronic review/signature. FIBERGLASS LAMINATOR: [facility] PHONE NUMBER: [phone] INFO REQUESTED: diabetic footwear INSTRUCTIONS: Fax information to [phone] documented in this encounter Plan of Treatment Not on file documented as of this encounter Visit Diagnoses Not on filedocumented in this encounter Additional Health Concerns Assessment Noted Time PHQ-9 Depression Total Score: 5 10/11/19 9:23 PM CDT documented as of this encounter Care Teams Harnessmaker Relationship Specialty Start Date End Date Soham James M.D., Ph.D. PCP - General 12/22/16 11/23/23 documented as of this encounter
--- OUTSIDE RECORDS SUMMARY | 2023-12-05 15:02 | XMS_ITS | Referral Summary ---
Author Organization [facility] Address [address] [place] [address] Care Team Providers Care Store Leader Name Role Phone Shanae Ugarte APRN, C.N.P. Primary Care Provide r Source Comments Patient records contain information from all sites at [facility]. For routine questions regarding patient records, call [phone] during business hours, M-F 8:00 AM - 5:00 PM Central Time. Record requests for emergency care only can be directed to [phone] at any time.[facility] Encounters Date Type Department Care Team Description 11/27/2023 Refill Department of Family Medicine, [facility], in [address] [address] Shanae Ugarte APRN, C.N.P. Med Refill 11/06/2023 Clinical Communication Department of Family [facility], [facility], [address] [address] Soham James M.D., Ph.D. [facility] Form ([facility] (PT Outpatient Eval 11/02/23) 10/23/2023 Clinical Communication Department of Family [facility], [facility], in [address] [address] Soham James M.D., Ph.D. Form Review ([facility]. diabetic footwear ) 10/18/2023 Clinical Communication Department of Family Medicine, [facility], in [address] [address] Soham James M.D., Ph.D. 10/12/2023 Clinical Communication Department of Family [facility], [facility], [address] [address] Soham James M.D., Ph.D. PT Referral 10/11/2023 6:00 PM CDT Office Visit Department of Family Medicine, [facility], [address] [address] Soham James M.D., Ph.D. Coronary Artery Disease With Stable Angina (HCC) (Primary Dx); Stroke Cerebrovascular Accident Personal History; Hypersomnia; Apnea Sleep Obstructive; Dermatitis Seborrheic; Wound Foot Open Subsequent Right; Diabetes Mellitus Type 2 With Diabetic Neuropathy (HCC); 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); Pain Neck; Pain Shoulder Right Discharge Disposition: Home or Self Care 10/10/2023 Orders Only [facility] Soham James M.D., Ph.D. Diabetes Mellitus Type 2 With Diabetic Neuropathy (HCC) 09/17/2023 Nurse Triage Department of Family [facility], [facility], [address] [address] Tracey Thompson R.N. Med Question 09/17/2023 Refill Department of Family [facility], [facility], [address] [address] Soham James M.D., Ph.D. Med Refill 09/15/2023 Refill Department of Family Medicine, [facility], [address] [address] Soham James M.D., Ph.D. Med Change Request 09/14/2023 Refill Department of Family Medicine, [facility], [address] [address] Soham James M.D., Ph.D. Med Refill 09/14/2023 Clinical Communication Department of Family Medicine, [facility], in [address] [address] Soham James M.D., Ph.D. from Last 3 Months Allergies Active Allergy Reactions Criticality Noted Date Comments Esomeprazole Magnesium Nausea Only 11/12/2012 INCREASED ACID Penicillins Hives (Reselect Reaction) 04/15/2014 Elvnxgg-Erg-Qet Reductase Inhibitors Myalgia 04/15/2014 Medications Medication Sig [...] - MODE RNA (12 YEARS AND OLDER) [id number] 05/12/2023 SARS-COV-2 (COVID-19) - MODERNA(Discontinued) SARS-COV-2 (COVID-19) [...] 177 cm (5' 9.69) 05/31/2023 2:47 PM ENERGY PROFESSIONAL Body Mass Index 39.32 05/31/2023 2:47 PM ENERGY PROFESSIONAL Plan of Treatment Not on file Medical Devices Implanted Type Area Timber Hewer Device Identifier Shelf Expiration Date Model / Serial / Lot Knee Implant- 0 Implanted:08/14 by Amrik Falcon M.D. (Quantity not on file) Knee Implant Knee Procedures Procedure Name Priority Date/Time Associated Diagnosis Comments HEMOGLOBIN A1C, B Routine 10/11/2023 7:1 2 PM CDT Diabetes Mellitus Type 2 With Diabetic Neuropathy (HCC) EXTI SODIUM, S/P Routine 07/05/2023 9:05 AM ENERGY PROFESSIONAL EXTI BASIC METABOLIC PANEL, S/P Routine 07/04/2023 11:49 PM ENERGY PROFESSIONAL EXTI THYROID-STIMULATI NG HORMONE-SENSITIVE (S-TSH), S Routine 06/19/2023 5:47 AM ENERGY PROFESSIONAL ALBUMIN, RANDOM, U Routine 05/31/2023 2:26 PM ENERGY PROFESSIONAL Diabetes Mellitus Type 2 With Diabetic Neuropathy [...] James M.D., Ph.D. LAB BLOOD ADD-O N [address] [address], [address] [address] * (ABNORMAL) Albumin, Random, Urine (05/31/2023 2:26 PM ENERGY PROFESSIONAL) Microalbumin 53.8 mg/L 05/31/2023 2:48 PM ENERGY PROFESSIONAL CNFL Creatinine 115 mg/dL 05/31/2023 2:48 PM ENERGY PROFESSIONAL CNFL Albumin/Creatinin e Ratio 47(H) <17 mg/g 05/31/2023 2:48 PM ENERGY PROFESSIONAL CNFL Urine (Urine, Midstream) 05/31/2023 2:26 PM ENERGY PROFESSIONAL 05/31/2023 2:26 PM ENERGY PROFESSIONAL Soham James M.D., Ph.D. LAB URINE ORDER SREEKANTH [address] [address], [address] [address] * [place] Aorta AAA Screening (05/05/2020 10:41 [...] S Nonreactive Nonreactive 10/09/2017 10:35 AM CDT [facility] Blood 10/06/2017 2:29 PM CDT 10/06/2017 9:44 PM CDT Narrative [facility] - 10/09/2017 10:35 AM CDT Specimen Information: Specimen ID: [id number] Specimen Type: Blood Specimen Collection Start Date: 10/06/2017 ??2:29 PM Specimen Received Date: 10/06/2017 ??9:44 PM Specimen ID: [id number] Specimen Type: Blood Specimen Collection Start Date: 10/06/2017 ??2:29 PM Specimen Received Date: 10/06/2017 ??9:44 PM Soham James M.D., Ph.D. LAB MICROBIOLOG Y - BLOOD ORDERABLES [facility] [address] [place] [address], [facility] from Last 3 Months or Most Recently Relevant to Health Maintenance Care Teams Store Leader Relationship Specialty Start Date End Date Shanae Ugarte APRN, C.N.P. [address] [place] [address] PCP - General 11/24/23
--- OUTSIDE RECORDS SUMMARY | 2023-12-05 15:02 | XMS_ITS ---
Author Organization [facility] Address [address] [place] [address] Care Team Providers Care Surgical Supplies Sterilizer Name Role Phone Unavailable Unavailable Unavailable Surgery Details Not on file Complications Check Surgery Details section. Procedure Estimated Blood Loss Check Surgery Details section. Procedure Findings Check Surgery Details section. Procedure Specimens Taken Check Surgery Details section.
--- OUTSIDE RECORDS SUMMARY | 2023-12-05 15:02 | XMS_ITS | Encounter Summary ---
Author Organization [facility] Address [address] [place] [address] Care Team Providers Care Operational Risk Analyst Name Role Phone Soham James M.D., Ph.D. Primary Care Provider Reason for Visit * Reason Onset Date Comments PandaDoc Form 11/06/2023 [facility]inics (PT Outpatient Eval 11/02/23 Encounter Details Date Type Department Care Team (Latest Contact Info) Description 11/06/2023 Clinical Communication Department of Family Medicine, [facility], in [address] [phone] Soham James M.D., Ph.D. [address] [place] [address] [employer] Form ([facility] (PT Outpatient Eval 11/02/23) Social History [...] AM CDT Completed form(s) faxed back to [facility], and sent to [facility] for scanning. * Telephone Encounter - Madelyn Maranda Kaye - 11/06/2023 4:50 PM CDT Form was routed to Soham James M.D., Ph.D. for electronic review/signature. CHUTE MAN: [facility] PHONE NUMBER: [phone] INFO REQUESTED: PT Outpatient Eval 11/02/23 INSTRUCTIONS: Fax information to [phone] documented in this encounter Plan of Treatment Not on file documented as of this encounter Visit Diagnoses Not on filedocumented in this encounter Additional Health Concerns Assessment Noted Time PHQ-9 Depression Total Score: 5 10/11/19 24 9:23 PM CDT documented as of this encounter Care Teams Operational Risk Analyst Relationship Specialty Start Date End Date Soham James M.D., Ph.D. PCP - General 12/22/16 11/23/23 documented as of this encounter
--- OUTSIDE RECORDS SUMMARY | 2023-12-05 15:02 | XMS_ITS | Continuity of Care Document ---
Author Organization [facility] Address [address] [place] [address] Phone Care Team Providers Care Surgical Forceps Fabricator Name Role Phone Roshni Rousseau DPT Unavailable [...] Providers Copied on Encounter [facility], [address], [place], [place], [id number], [place] tel:[phone] [place] [facility] No Information 3 Soham Barakat. [address], [address], [place], [address], [place]. tel:[phone] [facility], [address], [place], [place], [id number], [place] tel:[phone] [facility] Spinal stenosis, lumbar region with neurogenic claudicationRadic ulopathy, lumbar regionType 2 diabetes mellitus with diabetic neuropathy, unsp 3 Soham Barakat. [address], [address], [place], [address], [place]. tel:[phone] Referring Provider: Laron Basurto, [address], [place], [address] . tel:[phone] Psychiatric Diagnostic Evaluation Telephone Only [facility], [address], [place], [place], [id number], [place] tel:[phone] [facility] Pain disorder with related psychological factors 3 Selwyn Pabon. [address], [place], [address], [place]. tel:[phone] Referring Provider: Laron Basurto, [address], [place], [address] . tel:[phone] [facility], [address], [place], [place], [id number], [place] tel:[phone] [facility] Spinal stenosis, lumbar region with neurogenic claudicationRadic ulopathy, lumbar region 3 Foster Sam. [address], [place], [address], [place]. tel:[phone] Referring Provider: Laron Basurto, [address], [place], [address] . tel:[phone] Est Pt Eval [facility], [address], [place], [place], [id number], [place] tel:[phone] [facility] back pain (chief complaint) Spinal stenosis, lumbar region with neurogenic claudicationType 2 diabetes mellitus w/ diabetic neuropathyRadicul opathy, lumbar regionBody mass index (BMI) 40.0-44.9, adult 3 Carmel Sam. [address], [place], [address], [place]. tel:[phone] Referring Provider: Laron Basurto, [address], [place], [address] . tel:[phone] New Pt Eval 45 Min [facility], [facility], [address], [place], [place], [id number], [place] tel:[phone] [facility] back pain (chief complaint) Body mass index (BMI) 40.0-44.9, adultSpinal stenosis, lumbar region with neurogenic claudicationRadic ulopathy, lumbar regionType 2 diabetes mellitus w/ diabetic neuropathy Dec- 3 Foster Sam. [address], [place], [address], [place]. tel:[phone] Referring Provider: Laron Basurto, [address], [place], [address] . tel:[phone] Family History Family Member Type Diagnosis Age At Onset No Information Payers Payer name Insurance type Covered republican ID Bernice galicia(s) Medicare Part B AKUA [id number] [employer] [id number] Social History Type Description Quantity Date Captured [...] diabetic neuropathy -Requested medical r ecords from [facility] ([place]Order MRI of the lumbar spine at [facility] [...]
--- OUTSIDE RECORDS SUMMARY | 2023-12-05 15:02 | XMS_ITS | Encounter Summary ---
Author Organization [facility] Address [address] [place] [address] Care Team Providers Care Turning Machine Operator Helper Name Role Phone Shanae Ugarte APRN, C.N.P. Primary Care Provide r Reason for Visit * Reason Comments Med Refill Encounter Details Date Type Department Care Team (Late st Contact Info) Description 11/27/2023 Refill Department of Family Medicine, [facility], in [address] [address] Shanae Ugarte APRN, C.N.P. [address] [place] [phone] Med Refill Social History Tobacco Use Types [...] documented as of this encounter Care Teams Turning Machine Operator Helper Relationship Specialty Start Date End Date Shanae Ugarte APRN, C.N.P. [address] [place] [address] PCP - General 11/24/23 documented as of this encounter
--- OUTSIDE RECORDS SUMMARY | 2023-12-05 15:02 | XMS_ITS | Encounter Summary ---
Author Organization [facility] Address [address] [place] [address] Care Team Providers Care Glue Sprayer Name Role Phone Soham James M.D., Ph.D. Primary Care Provider Reason for Referral * Medication Prior Authorization - Closed Specialty Diagnoses / Procedures Referred By Contac t Referred To Contact Diagnoses Diabetes Mellitus Type 2 With Diabetic Neuropathy (HCC) Soham James M.D., Ph.D. [address] [address] [place] [address] Referral ID Status Reason Start Date Expiration Date Visits Re quested Visits Authorized [id number] Closed 1 1 Encounter Details Date Type Department Care Team (Late st Contact Info) Description 10/18/2023 Clinical Communication Department of Family Medicine, [facility], in [address] [phone] Soham James M.D., Ph.D. [address] [place] [address] Social History Tobacco Use Types [...] documented as of this encounter Care Teams Glue Sprayer Relationship Specialty Start Date End Date Soham James M.D., Ph.D. PCP - General 12/22/16 11/23/23 documented as of this encounter
--- OUTSIDE RECORDS SUMMARY | 2023-12-05 15:02 | XMS_ITS | Clinical Summary ---
Author Organization [facility] Address [address] [place] [address] Care Team Providers Care Vault Person Name Role Phone Shanae Ugarte APRN, C.N.P. Primary Care Provide r Source Comments Patient records contain information from all sites at [facility]. For routine questions regarding patient records, call [phone] during business hours, M-F 8:00 AM - 5:00 PM Central Time. Record requests for emergency care only can be directed to [phone] at any time.[facility] Allergies Active Allergy Reactions Criticality Noted Date Comments Esomeprazole Magnesium Nausea Only 11/12/2012 INCREASED ACID Penicillins Hives (Reselect Reaction) 04/15/2014 Xtoflxh-Vwk-Hdn Reductase Inhibitors Myalgia 04/15/2014 Medications Medication Sig [...] Description 11/27/2023 Refill Department of Family Medicine, [facility], [address] [address] Shanae Ugarte APRN CJoshN.P. Med Refill 11/06/2023 Clinical Communication Department of Family [facility], [facility], [address] [address] Soham James M.D., Ph.D. [facility] Form ([facility] (PT Outpatient Eval 11/02/23) 10/23/2023 Clinical Communication Department of Family Medicine, [facility], [address] [address] Soham James M.D., Ph.D. Form Review ([facility]. diabetic footwear ) 10/18/2023 Clinical Communication Department of Family Medicine, [facility], [address] [address] Soham James M.D., Ph.D. 10/12/2023 Clinical Communication Department of Family Medicine, [facility], [address] [address] Soham James M.D., Ph.D. PT Referral 10/11/2023 6:00 PM CDT Office Visit Department of Family Medicine, [facility], [address] [address] Soham James M.D., Ph.D. Coronary Artery Disease [...] (HCC) 09/17/2023 Nurse Triage Department of Family [facility], [facility], [address] [address] Tracey Thompson R.N. Med Question 09/17/2023 Refill Department of Family Medicine, [facility], [address] [place] [address] Soham James M.D., Ph.D. Med Refill 09/15/2023 Refill Department of [facility], [facility], [address] [place] [address] Soham James M.D., Ph.D. Med Change Request 09/14/2023 Refill Department of Family Medicine, [facility], in [address] [place] [address] Soham James M.D., Ph.D. Med Refill 09/14/2023 Clinical Communication Department of [facility], [facility], [address] [place] [address] Soham James M.D., Ph.D. from Last 3 [...] 177 cm (5' 9.69) 05/31/2023 2:47 PM SALESPERSON BURIAL NEEDS Body Mass Index 39.32 05/31/2023 2:47 PM SALESPERSON BURIAL NEEDS Plan of Treatment Health Maintenance Due Date [...] FIT Discontinued Medical Devices Implanted Type Area Marble Installer Supervisor Device Identifier Shelf Expiration Date Model / Serial / Lot Knee Implant- 0 Implanted:08/14 by Amrik Falcon M.D. (Quantity not on file) Knee Implant Knee Procedures Procedure Name Priority Date/Time Associated Diagnosis Comments HEMOGLOBIN A1C, B Routine 10/11/2023 7:1 2 PM CDT Diabetes Mellitus Type 2 With Diabetic Neuropathy (HCC) EXTI SODIUM, S/P Routine 07/05/2023 9:05 AM SALESPERSON BURIAL NEEDS EXTI BASIC METABOLIC PANEL, S/P Routine 07/04/2023 11:49 PM SALESPERSON BURIAL NEEDS EXTI THYROID-STIMULATI NG HORMONE-SENSITIVE (S-TSH), S Routine 06/19/2023 5:47 AM SALESPERSON BURIAL NEEDS ALBUMIN, RANDOM, U Routine 05/31/2023 2:26 PM SALESPERSON BURIAL NEEDS Diabetes Mellitus Type 2 With Diabetic Neuropathy [...] LAB BLOOD ADD-O N Performing Organization Address [facility] [place] [address], [place] [address] * (ABNORMAL) Albumin, Random, Urine (05/31/2023 2:26 PM SALESPERSON BURIAL NEEDS) Microalbumin 53.8 mg/L 05/31/2023 2:48 PM SALESPERSON BURIAL NEEDS CNFL Creatinine 115 mg/dL 05/31/2023 2:48 PM SALESPERSON BURIAL NEEDS CNFL Albumin/Creatinin e Ratio 47(H) <17 mg/g 05/31/2023 2:48 PM SALESPERSON BURIAL NEEDS CNFL Urine (Urine, Midstream) 05/31/2023 2:26 PM SALESPERSON BURIAL NEEDS 05/31/2023 2:26 PM SALESPERSON BURIAL NEEDS Soham James M.D., Ph.D. LAB URINE ORDER SREEKANTH Performing Organization Address [facility] Co de Phone Number [address] [address], [facility] [place] [address] * [place] Aorta AAA Screening (05/05/2020 10:41 [...] negative for aneurysm. Soham James M.D., Ph.D. [facility] US PROCEDUR ES * HCV AB Scrn w/Reflex to HCV PCR, S (10/06/2017 2:29 PM CDT) HCV Ab Screen, S Nonreactive Nonreactive 10/09/2017 10:35 AM CDT [facility] Blood 10/06/2017 2:29 PM CDT 10/06/2017 9:44 PM CDT Narrative [facility] - 10/09/2017 10:35 AM CDT Specimen Information: Specimen ID: [id number] Specimen Type: Blood Specimen Collection Start Date: 10/06/2017 ??2:29 PM Specimen Received Date: 10/06/2017 ??9:44 PM Specimen ID: [id number] Specimen Type: Blood Specimen Collection Start Date: 10/06/2017 ??2:29 PM Specimen Received Date: 10/06/2017 ??9:44 PM Soham James M.D., Ph.D. LAB MICROBIOLOG Y - BLOOD ORDERABLES [facility] [address] [place] [address] from Last 3 Months or Most Recently Relevant to Health Maintenance Care Teams Vault Person Relationship Specialty Start Date End Date Shanae Ugarte APRN, C.N.P. [address] [place] [phone] PCP - General 11/24/23
--- OUTSIDE RECORDS SUMMARY | 2023-12-05 15:02 | XMS_ITS | Clinical Summary ---
Author Organization [email or web address] Address [place], [place] [address] Care Team Providers Care Pipe Layer Name Role Phone Soham James MD Primary Care Provider Hao Drew MD Unavailable [phone] Allergies Active Allergy Reactions Criticality Noted Date Comments Esomeprazole Magnesium Nausea Only 11/12/2012 INCREASED ACID Penicillins Hives 04/15/2014 Tlwqrdn-Zat-Uhs Reductase Inhibitors Nausea Only,Myalgia 04/15/2014 Medications Medication [...] 05/05/2015 Hyperlipidemia 05/05/2015 CAD (coronary artery disease), [place] coronary a rtery 10/30/2014 Systolic murmur 09/29/2014 [...] Department Care Team Description 10/06/2023 Lab Requisition [facility] [phone] Jessica Barrow MD 10/05/2023 9:48 AM CDT - 10/05/2023 11:59 PM CDT Hospital Encounter [facility] [address] [place] [address] [address] [place] [address] Zeny Isaac, Samina Nolasco, PT Left without seen 10/05/2023 Travel 10/03/2023 Patient Outreach [facility] [address] [place] [address] Bess Conroy Brain Injury Rehab Care Coordination - [facility] 09/22/2023 Telephone [facility] [address] [place] [phone] Hao Drew MD Results 09/21/2023 10:36 AM CDT - 09/21/2023 11:59 PM CDT Hospital Encounter [facility] [address] [place] [address] Zeny Isaac, Samina Nolasco, PT 09/21/2023 Travel 09/14/2023 10:43 AM PUBLIC ADDRESS TECHNICIAN - 09/14/2023 11:59 PM PUBLIC ADDRESS TECHNICIAN Hospital Encounter [facility] [address] [place] [address] Zeny Isaac, Samina Nolasco, PT 09/14/2023 Travel 09/07/2023 10:40 AM PUBLIC ADDRESS TECHNICIAN - 09/07/2023 11:59 PM PUBLIC ADDRESS TECHNICIAN Hospital Encounter [facility] [address] [place] [address] Zeny Isaac NP Bradshaw, Emily, PT 09/07/2023 Travel 09/06/2023 Telephone [facility] [address] [place] [address] Zeny Isaac NP CMS EXPERT ASSESSMENT from Last 3 Months Immunizations Name Administration [...] Comments Blood Pressure 130/70 08/17/2023 10:43 AM PUBLIC ADDRESS TECHNICIAN Pulse 67 08/17/2023 10:43 AM PUBLIC ADDRESS TECHNICIAN Temperature 36.7 ??C (98.1 ??F) 08/17/2023 10:[address] Respiratory Rate 20 08/17/2023 10:43 AM PUBLIC ADDRESS TECHNICIAN Oxygen Saturation 100% 08/17/2023 10:43 AM PUBLIC ADDRESS TECHNICIAN Inhaled Oxygen Concentration - - Weight 120.2 kg (265 lb) 07/31/2023 10:43 AM PUBLIC ADDRESS TECHNICIAN Height 180.3 cm (5' 11) 07/31/2023 10:43 AM PUBLIC ADDRESS TECHNICIAN Body Mass Index 36.96 07/31/2023 10:43 AM PUBLIC ADDRESS TECHNICIAN Plan of Treatment Health Maintenance Due Date [...] 9, 08/18/2008 Medical Devices Implanted Type Area Bookmaker'S Clerk Device Identifier Shelf Expiration Date Model / Serial / Lot Cmnt Bone Simplex Hv Gentamicin - [id number] Implanted:Qty: 2 on 04/28/2014 by Amrik Falcon MD at [facility] Left: Knee [employer] 11/06/2014 6195-1-001 # / / [id number] Patella [id number] Triathlon Asymmetric X3 - [id number] Implanted:Qty: 1 on 04/28/2014 by Amrik Falcon MD at [facility] Left: Knee [employer] 02/06/2019 5551-G-350 # / / [id number] Fem Lt Sz7 Triathlon Post Stbznon Pors - [id number] Implanted:Qty: 1 on 04/28/2014 by Amrik Falcon MD at [facility] Left: Knee [employer] 02/06/2018 5515-F-701 # / / [id number] Baseplate Tib Sz6 Triathlon Pe - [id number] Implanted:Qty: 1 on 04/28/2014 by Amrik Falcon MD at [facility] Left: Knee [employer] 12/07/2018 5521-B-600 # / / KRDE Insert Knee Sz6 11mm Triathlonpost Stbz X3 - [id number] Implanted:Qty: 1 on 04/28/2014 by Amrik Falcon MD at [facility] Left: Knee [employer] 02/06/2019 5532-G-611 # / / [id number] Triathlon X3 Asymmetric Patella [id number] - [id number] Implanted:Qty: 1 on 08/14/2019 by Amrik Falcon MD at [facility] Right: Knee [employer] 02/19/2024 5551-G-381 -E / / [id number] Triathlon X3 Tibial Bearing Insert Cs Valery 5 Typ Cs Thkns 11mm - [id number] Implanted:Qty: 1 on 08/14/2019 by Amrik Falcon MD at [facility] Right: Knee [employer] 03/24/2024 5531-G-511 -E / / [id number] Cmnt Bone Simplex Hv - [id number] Implanted:Qty: 1 on 08/14/2019 by Amrik Falcon MD at [facility] Right: Knee [employer] 12/07/2020 6194-1-001 # / / [id number] Cmnt Bone Simplex Hv Gentamicin - [id number] Implanted:Qty: 1 on 08/14/2019 by Amrik Falcon MD at [facility] Right: Knee [employer] 06/08/2020 6195-1-001 # / / [id number] Fem Rt Sz6 Triathlon Cruc Ret Co Cr - [id number] Implanted:Qty: 1 on 08/14/2019 by Amrik Falcon MD at [facility] Right: Knee [employer] 01/11/2024 5510-F-602 # / / [id number] Baseplate Tib Sz5 Triathlon Pe - [id number] Implanted:Qty: 1 on 08/14/2019 by Amrik Falcon MD at [facility] Right: Knee [employer] 04/17/2024 5521-B-500 # / / [id number] Procedures Procedure Name Priority Date/Time Associated Diagnosis Comments REFERRAL ID/SUSC,NONURINE Routine 10/06/2023 11:30 AM CDT EXTENDED HOLTER Routine 09/20/2023 Paroxysmal atrial fibrillation (HC) from Last 3 Months Results * (ABNORMAL) REFERRAL ID/SUSC,NONURINE (10/06/2023 11:30 AM CDT) CULTURE RESULT(A) 10/10/2023 10:37 AM CDT [facility] CULTURE Streptococcus anginosus 10/10/2023 10:37 AM CDT [facility] Other Client Collect / Unknown 10/06/2023 11:30 AM CDT 10/06/2023 9:05 PM CDT Narrative Organism Antibiotic Method Susceptibility Streptococcus anginosus PENICILLIN <=0.06: S Streptococcus anginosus ERYTHROMYCIN R Streptococcus anginosus CLINDAMYCIN R Streptococcus anginosus VANCOMYCIN S Streptococcus anginosus CLARITHROMYCIN R Jessica Barrow MD MICROBIOLOGY [facility] [address] [place] [address] * EXTENDED HOLTER (09/20/2023) Hao Drew MD [...] 11:50 PM 08/09/2018 3:08 PM Care Teams Pipe Layer Relationship Specialty Start Date End Date Soham James MD [address] [place] [phone] PCP - General Family Practice 04/10/14 Hao Drew MD [address] [place] [address] [address] [place] [address] Cardiology Cardiovascular Disease 12/30/19
--- OUTSIDE RECORDS SUMMARY | 2023-12-05 15:03 | XMS_ITS | Encounter Summary ---
Author Organization [facility] Address [address] [place] [address] Care Team Providers Care Stamp Press Operator Name Role Phone Soham James M.D., Ph.D. Primary Care Provider Encounter Details Date Type Department Care Team (Late st Contact Info) Description 09/14/2023 Clinical Communication Department of Family Medicine, [facility], in [address] [address] Soham James M.D., Ph.D. [address] [place] [address] Social History Tobacco Use Types [...] following references were used: nursing clinical judgement NICAL DOCUMENTATION SPECIALIST * Telephone Encounter - Marialuisa Benson - [...] send all scheduling replies to scheduling pool. NICAL DOCUMENTATION SPECIALIST documented in this encounter Plan of Treatment Not on file documented as of this encounter Visit Diagnoses Diagnosis Diabetes Mellitus Type 2 With Diabetic Neuropathy (HCC) documented in this encounter Additional Health Concerns Assessment Noted Time PHQ-9 Depression Total Score: 3 05/31/20 23 3:22 PM TECHNICAL DOCUMENTATION SPECIALIST documented as of this encounter Care Teams Stamp Press Operator Relationship Specialty Start Date End Date Soham James M.D., Ph.D. PCP - General 12/22/16 11/23/23 documented as of this encounter
--- OUTSIDE RECORDS SUMMARY | 2023-12-05 15:03 | XMS_ITS | Referral Summary ---
Author Organization [facility] Address [address] [place] [address] Care Team Providers Care Dispatcher Service Name Role Phone Soham James MD Primary Care Provider [phone] Allergies Active Allergy Reactions Criticality Noted Date [...] Comments Blood Pressure 118/67 08/07/2018 9:20 AM RADIATION TECHNICIAN Pulse 64 08/07/2018 9:20 AM RADIATION TECHNICIAN Temperature 36.6 ??C (97.9 ??F) 08/21/2012 8:20 AM CS T Respiratory Rate 20 08/07/2018 9:30 AM RADIATION TECHNICIAN Oxygen Saturation 91% 08/07/2018 9:27 AM RADIATION TECHNICIAN Inhaled Oxygen Concentration - - Weight 124.7 kg (275 lb) 08/07/2018 7:52 AM RADIATION TECHNICIAN Height 177.8 cm (5' 10) 08/07/2018 7:52 AM RADIATION TECHNICIAN Body Mass Index 39.46 08/07/2018 7:52 AM RADIATION TECHNICIAN Plan of Treatment Not on file Procedures Procedure Name Priority Date/Time Associated Diagnosis Comments COLONOSCOPY Routine 08/07/2018 8:13 AM RADIATION TECHNICIAN GLUCOSE BY METER Routine 08/21/2012 7:19 AM RADIATION TECHNICIAN from Last 3 Months or Most Recently Relevant to Health Maintenance Results * COLONOSCOPY (08/07/2018 8:13 AM RADIATION TECHNICIAN) [facility] COLONOSCOPY [facility] Endoscopy Department ___ Patient Name: Shin Best ? Procedure Date: 08/07/2018 8:13 AM ? Date of : 1945 ? Admit Type: Outpatient Age: 73 ? Room: 3 Note Status: Finalized ?Attending MD: Abraham Milner , Total Sedation Time: 41 mins of continuous bedside 1:1 Instrument Name: 325 [id number] AdultColonoscope ___ Procedure: ?Colonoscopy Indications: ?Screening for [...] Procedure Code(s): ? --- Professional --- ? 18005, Colonoscopy, flexible; with removal of tumor(s), polyp(s), or ? other lesion(s) by snare technique Diagnosis Code(s): ? --- Professional --- ? Z12.11, Encounter for screening for malignant neoplasm of colon ? K62.1, Rectal polyp CPT copyright 2017 [employer]. All rights reserved. The codes documented in this report are preliminary and upon mineral resources inspector review may be revised to meet current compliance requirements. Abraham Milner, 08/07/2018 9:10:30 AM I was physically present for the entire viewing portion of the exam. Abraham Milner Number of Addenda: 0 Note Initiated On: 08/07/2018 8:13 AM MRN: ?[id number] Procedure Date: ? 08/07/2018 8:13:49 AM Scope Withdrawal Time: 0 hours 13 minutes 27 seconds Total Procedure Duration: 0 hours 40 minutes 58 seconds Estimated Blood Loss: ? Scope In: 8:20:39 AM Scope Out: 9:01:37 AM RADIOLOGY RESULTS 08/07/2018 8:13 AM RADIATION TECHNICIAN Soham James MD PROCEDURES RADIOLOGY RESULTS * Glucose by meter (08/21/2012 7:19 AM RADIATION TECHNICIAN) Glucose 79 60 - 99 mg/dL POINT OF CARE TEST, GLUCOSE Comment:Dr/RN Notified 08/21/2012 7:19 AM RADIATION TECHNICIAN 08/21/2012 7:25 AM RADIATION TECHNICIAN Stacy Ayers MD [facility] POCT POINT OF CARE TEST, GLUCOSE from Last 3 Months or Most Recently Relevant to Health Maintenance Care Teams Dispatcher Service Relationship Specialty Start Date End Date Soham James MD [facility] [address] [place] [address] PCP - General Family Practice 07/25/12
--- OUTSIDE RECORDS SUMMARY | 2023-12-05 15:03 | XMS_ITS | Encounter Summary ---
Author Organization [facility] Address [address] [place] [address] Care Team Providers Care Senior Scrum Master Name Role Phone Soham James M.D., Ph.D. Primary Care Provider Reason for Visit * Reason Comments Med Refill Encounter Details Date Type Department Care Team (Late st Contact Info) Description 09/14/2023 Refill Department of Family Medicine, [facility], in [address] [address] Soham James M.D., Ph.D. [address] [place] [phone] Med Refill Social History Tobacco Use Types [...] Total Score: 3 11/22/20 23 3:22 PM SAFE AND VAULT MECHANIC documented as of this encounter Care Teams Senior Scrum Master Relationship Specialty Start Date End Date Soham James M.D., Ph.D. PCP - General 12/22/16 11/23/23 documented as of this encounter
--- OUTSIDE RECORDS SUMMARY | 2023-12-05 15:03 | XMS_ITS | Encounter Summary ---
Author Organization [facility] Address [address] [place] [address] Care Team Providers Care Magazine Editor Name Role Phone Soham James M.D., Ph.D. Primary Care Provider Reason for Visit * Reason Comments Med Change Request Encounter Details Date Type Department Care Team (Late st Contact Info) Description 08/23/2023 Refill Department of Family Medicine, [facility], in [address] [address] Soham James M.D., Ph.D. [address] [place] [phone] Med Change Request Social History Tobacco Use [...] Total Score: 3 05/31/20 23 3:22 PM RESTAURANT FRONT MANAGER documented as of this encounter Care Teams Magazine Editor Relationship Specialty Start Date End Date Soham James M.D., Ph.D. PCP - General 12/22/16 11/23/23 documented as of this encounter
--- OUTSIDE RECORDS SUMMARY | 2023-12-05 15:03 | XMS_ITS | Clinical Summary ---
Author Organization [facility] Address [address] [place] [address] Care Team Providers Care Activated Sludge Operator Name Role Phone Soham James MD Primary Care Provider [phone] Allergies Active Allergy Reactions Criticality Noted Date [...] Comments Blood Pressure 118/67 08/07/2018 9:20 AM BRICK CLEANER Pulse 64 08/07/2018 9:20 AM BRICK CLEANER Temperature 36.6 ??C (97.9 ??F) 08/21/2012 8:20 AM CS T Respiratory Rate 20 08/07/2018 9:30 AM BRICK CLEANER Oxygen Saturation 91% 08/07/2018 9:27 AM BRICK CLEANER Inhaled Oxygen Concentration - - Weight 124.7 kg (275 lb) 08/07/2018 7:52 AM BRICK CLEANER Height 177.8 cm (5' 10) 08/07/2018 7:52 AM BRICK CLEANER Body Mass Index 39.46 08/07/2018 7:52 AM BRICK CLEANER Plan of Treatment Health Maintenance Due Date [...] Diagnosis Comments COLONOSCOPY Routine 08/07/2018 8:13 AM BRICK CLEANER GLUCOSE BY METER Routine 08/21/2012 7:19 AM BRICK CLEANER from Last 3 Months or Most Recently Relevant to Health Maintenance Results * COLONOSCOPY (08/07/2018 8:13 AM BRICK CLEANER) [facility] COLONOSCOPY [facility] Endoscopy Department ___ Patient Name: Shin Best ? Procedure Date: 08/07/2018 8:13 AM ? Date of : 1945 ? Admit Type: Outpatient Age: 73 ? Room: 3 Note Status: Finalized ?Attending MD: Abraham Milner , Total Sedation Time: 41 mins of continuous bedside 1:1 Instrument Name: 325 [id number] AdultColonoscope ___ Procedure: ?Colonoscopy Indications: ?Screening for [...] Procedure Code(s): ? --- Professional --- ? 63572, Colonoscopy, flexible; with removal of tumor(s), polyp(s), or ? other lesion(s) by snare technique Diagnosis Code(s): ? --- Professional --- ? Z12.11, Encounter for screening for malignant neoplasm of colon ? K62.1, Rectal polyp CPT copyright 2017 [employer]. All rights reserved. The codes documented in this report are preliminary and upon hand grinder review may be revised to meet current compliance requirements. Abraham Milner, 08/07/2018 9:10:30 AM I was physically present for the entire viewing portion of the exam. Abraham Milner Number of Addenda: 0 Note Initiated On: 08/07/2018 8:13 AM MRN: ?[id number] Procedure Date: ? 08/07/2018 8:13:49 AM Scope Withdrawal Time: 0 hours 13 minutes 27 seconds Total Procedure Duration: 0 hours 40 minutes 58 seconds Estimated Blood Loss: ? Scope In: 8:20:39 AM Scope Out: 9:01:37 AM RADIOLOGY RESULTS 08/07/2018 8:13 AM BRICK CLEANER Soham James MD PROCEDURES RADIOLOGY RESULTS * Glucose by meter (08/21/2012 7:19 AM BRICK CLEANER) Glucose 79 60 - 99 mg/dL POINT OF CARE TEST, GLUCOSE Comment:Dr/RN Notified 08/21/2012 7:19 AM BRICK CLEANER 08/21/2012 7:25 AM BRICK CLEANER Stacy Ayers MD LAB - BEAKER POCT Performing Organization Address City/[facility] Co de Phone Number POINT OF CARE TEST, GLUCOSE from Last 3 Months or Most Recently Relevant to Health Maintenance Care Teams Activated Sludge Operator Relationship Specialty Start Date End Date Soham James MD [facility] [address] [place] [address] PCP - General Family Practice 07/25/12
--- OUTSIDE RECORDS SUMMARY | 2023-12-05 15:03 | XMS_ITS | Encounter Summary ---
Author Organization [facility] Address [address] [place] [address] Care Team Providers Care Tire Layer Name Role Phone Soham James M.D., Ph.D. Primary Care Provider Encounter Details Date Type Department Care Team (Late st Contact Info) Description 10/10/2023 Orders Only [facility] Soham James M.D., Ph.D. [address] [place] [address] Diabetes Mellitus Type 2 With [...] LAB BLOOD ADD-O N Performing Organization Address City/State/[facility] Co de Phone Number [facility] [address] [place] [address], [facility] [address] documented in this encounter Visit Diagnoses Diagnosis Diabetes Mellitus Type 2 With Diabetic Neuropathy (HCC) documented in this encounter Additional Health Concerns Assessment Noted Time PHQ-9 Depression Total Score: 3 05/31/20 23 3:22 PM SLD TEACHER documented as of this encounter Care Teams Tire Layer Relationship Specialty Start Date End Date Soham James M.D., Ph.D. PCP - General 12/22/16 11/23/23 documented as of this encounter
--- OUTSIDE RECORDS SUMMARY | 2023-12-05 15:03 | XMS_ITS | Encounter Summary ---
Author Organization [facility] Address [address] [place] [address] Care Team Providers Care Manager Of Supply Chain Name Role Phone Soham James M.D., Ph.D. Primary Care Provider Reason for Visit * Reason Comments Med Refill Encounter Details Date Type Department Care Team (Late st Contact Info) Description 09/17/2023 Refill Department of Family Medicine, [facility], in [address] [phone] Soham James M.D., Ph.D. [address] [place] [phone] Med Refill Social History Tobacco Use Types [...] Total Score: 3 05/31/20 23 3:22 PM ANTITANK ASSAULT GUNNER documented as of this encounter Care Teams Manager Of Supply Chain Relationship Specialty Start Date End Date Soham James M.D., Ph.D. PCP - General 12/22/16 11/23/23 documented as of this encounter
--- OUTSIDE RECORDS SUMMARY | 2023-12-05 15:03 | XMS_ITS | Encounter Summary ---
Author Organization [facility] Address [address] [place] [address] Care Team Providers Care Business Process Modeler Name Role Phone Soham James M.D., Ph.D. Primary Care Provider Reason for Visit * Reason Onset Date Comments Med Question 09/17/2023 Encounter Details Date Type Department Care Team (Late st Contact Info) Description 09/17/2023 Nurse Triage Department of Family Medicine, [facility], in [address] [phone] Tracey Thompson R.N. [address] [place] [address] Med Question Social History Tobacco [...] regarding Med Question. Assessment Concern: Sunita from [facility] pharmacy calls stating that patient called today to refill his Basaglar insulin because he is completely out. Reviewed medical record informed Sunita that an Rx was sent on 11/07/2022 which [facility] did not have. Verbal order provided to Sunita at [facility] The recommended disposition is Other. documented in this encounter Plan of Treatment Not on file documented as of this encounter Visit Diagnoses Not on filedocumented in this encounter Additional Health Concerns Assessment Noted Time PHQ-9 Depression Total Score: 3 05/31/20 23 3:22 PM CO FOUNDER & CEO documented as of this encounter Care Teams Business Process Modeler Relationship Specialty Start Date End Date Soham James M.D., Ph.D. PCP - General 12/22/16 11/23/23 documented as of this encounter
--- OUTSIDE RECORDS SUMMARY | 2023-12-05 15:03 | XMS_ITS | Encounter Summary ---
Author Organization [facility] Address [address] [place] [address] Care Team Providers Care Fibreglass Lay Up Worker Name Role Phone Soham James MD Primary Care Provider [phone] [phone] Encounter Details Date Type Department Care Team (Late st Contact Info) Description 2023 Telephone [facility] Podiatry [address] [place] [address] Piper Castanon, DPMikki, Podiatry/Foot and Ankle Surgery [address] [place], [place] [address] Social History Tobacco Use Types Packs/Day Years [...] referral we received from Dr. Soham James ([facility]) via fax this morning. Scheduled patient to see Dr. Castanon on June 20 in [place]. Patient requested the building address be sent to him via mail, so a letter was sent out. Patient was appreciative of the call. Dionte Rodrigez, Visit Glaze Mixer ANALYST documented in this encounter Plan of Treatment Not on file documented as of this encounter Visit Diagnoses Not on filedocumented in this encounter Care Teams Fibreglass Lay Up Worker Relationship Specialty Start Date End Date Soham James MD [facility] [address] [place] [address] PCP - General Family Practice 07/25/12 documented as of this encounter
--- OUTSIDE RECORDS SUMMARY | 2023-12-05 15:03 | XMS_ITS | Encounter Summary ---
Author Organization [facility] Address [address] [place] [address] Care Team Providers Care Horse Breaker Name Role Phone Soham James M.D., Ph.D. Primary Care Provider Reason for Visit * Reason Comments Med Change Request Encounter Details Date Type Department Care Team (Late st Contact Info) Description 09/15/2023 Refill Department of Family Medicine, [facility], in [address] [address] Soham James M.D., Ph.D. [address] [place] [phone] Med Change Request Social History Tobacco Use [...] Total Score: 3 11/22/20 23 3:22 PM TRANSFORMATION SPECIALIST documented as of this encounter Care Teams Horse Breaker Relationship Specialty Start Date End Date Soham James M.D., Ph.D. PCP - General 12/22/16 11/23/23 documented as of this encounter
--- OUTSIDE RECORDS SUMMARY | 2023-12-05 15:03 | XMS_ITS | Encounter Summary ---
Author Organization [facility] Address [address] [place] [address] Care Team Providers Care Well Drill Operator Rotary Drill Name Role Phone Soham James M.D., Ph.D. Primary Care Provider Reason for Visit * Reason Comments Med Change Request Encounter Details Date Type Department Care Team (Late st Contact Info) Description 08/30/2023 Refill Department of Family Medicine, [facility], in [address] [address] Soham James M.D., Ph.D. [address] [place] [address] Med Change Request Social History [...] Total Score: 3 05/31/20 23 3:22 PM CONSERVATION ENFORCEMENT OFFICER documented as of this encounter Care Teams Well Drill Operator Rotary Drill Relationship Specialty Start Date End Date Soham James M.D., Ph.D. PCP - General 12/22/16 11/23/23 documented as of this encounter
--- OUTSIDE RECORDS SUMMARY | 2023-12-05 15:03 | XMS_ITS | Encounter Summary ---
Author Organization [facility] Address [address] [place] [address] Care Team Providers Care Warehouse Receiving Clerk Name Role Phone Soham James M.D., Ph.D. Primary Care Provider Reason for Referral * Outpatient (Routine) - Authorized Specialty Diagnoses / Procedures Referred By Rj rush Referred To Contact Diagnoses Pain Neck Pain Shoulder Right Soham James M.D., Ph.D. [address] [place] [address] External, Referring Provider Referral ID Status Reason Start Date Expiration Date Visits Requested Visits Authorized [id number] Authorized Patient Preference 10/11/2023 04/11/2025 1 1 Reason for Visit * Reason Comments Chronic Disease Management Follow up had heart attack/stroke. Would like to restart Ozempic * Appointment Request (Routine) - Closed Specialty Diagnoses / Procedures Referred By Rj rush Referred To Contact Family Medicine Referral ID Status Reason Start Date Expiration Date Visits Re quested Visits Authorized [id number] Closed 07/20/2023 07/19/2024 1 1 Encounter Details Date Type Department Care Team (Latest Contact Info) Description 10/11/2023 6:00 PM CDT Office Visit Department of Family Medicine, [facility], in [address] [phone] Soham James M.D., Ph.D. 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 Pain Shoulder Right - External referral ancillary ([facility]) Other orders - semaglutide (OZEMPIC) 2 mg/dose [...] LAB BLOOD ADD-O N Performing Organization Address [facility]/State/ZIP Co de Phone Number [facility] [address] [place] [address], [facility] in [address] [address] documented in this encounter Visit Diagnoses Diagnosis [...] documented as of this encounter Care Teams Warehouse Receiving Clerk Relationship Specialty Start Date End Date Soham James M.D., Ph.D. PCP - General 12/22/16 11/23/23 documented as of this encounter
== END 2023-12-05 14:59 | disposition home or self-care (01) ==
PROVIDERS: PCP Family Medicine; Visit Provider Family Medicine
DX: Z00.00 Encounter for general adult medical examination without abnormal findings (principal); I10 Essential (primary) hypertension; E78.5 Hyperlipidemia, unspecified; E03.9 Hypothyroidism, unspecified; N18.32 Chronic kidney disease, stage 3b; E11.40 Type 2 diabetes mellitus with diabetic neuropathy, unspecified
CPT/HCPCS: 80053; 80061; 84443

== ENCOUNTER 2023-12-06 10:27 | Outpatient (CLI) | payer MEDICARE, BC, SELFPAY ==
--- OUTSIDE RECORDS SUMMARY | 2023-12-06 10:29 | XMS_ITS | Continuity of Care Document ---
Author Organization [facility] Address [address] [place] [address] Phone Care Team Providers Care Top Steep Tender Name Role Phone Roshni Rousseau DPT Unavailable [...] Providers Copied on Encounter [facility], [address], [place], [place], [id number], [place] tel:[phone] [place] [facility] No Information 3 Soham Barakat. [address], [address], [place], [address], [place]. tel:[phone] [facility], [address], [place], [place], [address], [place] tel:[phone] [facility] Spinal stenosis, lumbar region with neurogenic claudicationRadic ulopathy, lumbar regionType 2 diabetes mellitus with diabetic neuropathy, unsp 3 Soham Barakat. [address], [address], [place], [address], [place]. tel:[phone] Referring Provider: Laron Basurto, [address], [place], [address] . tel:[phone] Psychiatric Diagnostic Evaluation Telephone Only [facility], [address], [place], [place], [id number], [place] tel:[phone] [facility] Pain disorder with related psychological factors 3 Selwyn Pabon. [address], [place], [address], [place]. tel:[phone] Referring Provider: Laron Basurto, [address], [place], [address] . tel:[phone] [facility], [address], [place], [place], [id number], [place] tel:[phone] [facility] Spinal stenosis, lumbar region with neurogenic claudicationRadic ulopathy, lumbar region 3 Foster Sam. [address], [place], [address], [place]. tel:[phone] Referring Provider: Laron Basurto, [address], [place], [address] . tel:[phone] Est Pt Eval [facility], [address], [place], [place], [id number], [place] tel:[phone] [facility] back pain (chief complaint) Spinal stenosis, lumbar region with neurogenic claudicationType 2 diabetes mellitus w/ diabetic neuropathyRadicul opathy, lumbar regionBody mass index (BMI) 40.0-44.9, adult 3 Helen Sam. [address], [place], [address], [place]. tel:[phone] Referring Provider: Laron Basurto, [address], [place], [address] . tel:[phone] New Pt Eval 45 Min [facility], [facility], [address], [place], [place], [id number], [place] tel:[phone] [facility] back pain (chief complaint) Body mass index (BMI) 40.0-44.9, adultSpinal stenosis, lumbar region with neurogenic claudicationRadic ulopathy, lumbar regionType 2 diabetes mellitus w/ diabetic neuropathy Dec- 3 Foster Sam. [address], [place], [address], [place]. tel:[phone] Referring Provider: Laron Basurto, [address], [place], [address] . tel:[phone] Family History Family Member Type Diagnosis Age At Onset No Information Payers Payer name Insurance type Covered libertarian ID Bernice galicia(s) Medicare Part B AKUA [id number] goAct Cross Commercial BL [id number] Social History Type Description Quantity Date Captured [...] for MILD procedure, schedule when able- No RILYE follow up required Related to Spinal stenosis, [...] diabetic neuropathy -Requested medical r ecords from [facility]Order MRI of the lumbar spine at [facility] [...]
--- OUTSIDE RECORDS SUMMARY | 2023-12-06 10:30 | XMS_ITS | Encounter Summary ---
Author Organization [facility] Address [address] [place] [address] Care Team Providers Care Practice Architect Name Role Phone Soham James M.D., Ph.D. Primary Care Provider Reason for Referral * Outpatient (Routine) - Authorized Specialty Diagnoses / Procedures Referred By Rj rush Referred To Contact Diagnoses Pain Neck Pain Shoulder Right Soham James M.D., Ph.D. [address] [place] [address] External, Referring Provider Referral ID Status Reason Start Date Expiration Date Visits Requested Visits Authorized [id number] Authorized Patient Preference 10/11/2023 04/11/2025 1 1 Reason for Visit * Reason Comments Chronic Disease Management Follow up had heart attack/stroke. Would like to restart Ozempic * Appointment Request (Routine) - Closed Specialty Diagnoses / Procedures Referred By Rj rush Referred To Contact Family Medicine Referral ID Status Reason Start Date Expiration Date Visits Re quested Visits Authorized [id number] Closed 07/20/2023 07/19/2024 1 1 Encounter Details Date Type Department Care Team (Latest Contact Info) Description 10/11/2023 6:00 PM CDT Office Visit Department of Family Medicine, [facility], in [address] [phone] Soham James M.D., Ph.D. 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 Pain Shoulder Right - External referral ancillary ([facility]) Other orders - semaglutide (OZEMPIC) 2 mg/dose [...] LAB BLOOD ADD-O N Performing Organization Address [facility]/State/ZIP Co de Phone Number [facility] [address] [place] [address], [facility] in [address] [address] documented in this encounter Visit Diagnoses Diagnosis [...] documented as of this encounter Care Teams Practice Architect Relationship Specialty Start Date End Date Soham James M.D., Ph.D. PCP - General 12/22/16 11/23/23 documented as of this encounter
--- OUTSIDE RECORDS SUMMARY | 2023-12-06 10:30 | XMS_ITS | Encounter Summary ---
Author Organization [facility] Address [address] [place] [address] Care Team Providers Care Gun Mechanic Name Role Phone Soham James M.D., Ph.D. Primary Care Provider Reason for Visit * Reason Onset Date Comments PandaDoc Form 11/06/2023 [facility] (PT Outpatient Eval 11/02/23 Encounter Details Date Type Department Care Team (Latest Contact Info) Description 11/06/2023 Clinical Communication Department of Family Medicine, [facility], in [address] [phone] Soham James M.D., Ph.D. [address] [place] [address] PandaDoc Form ([facility] (PT Outpatient Eval 11/02/23) Social History Tobacco [...] AM CDT Completed form(s) faxed back to [employer], and sent to [facility] for scanning. * Telephone Encounter - Madelyn Maranda Kaye - 11/06/2023 4:50 PM CDT Form was routed to Soham James M.D., Ph.D. for electronic review/signature. TECHNICAL TRANSLATOR: [facility] PHONE NUMBER: [phone] INFO REQUESTED: PT Outpatient Eval 11/02/23 INSTRUCTIONS: Fax information to [phone] documented in this encounter Plan of Treatment Not on file documented as of this encounter Visit Diagnoses Not on filedocumented in this encounter Additional Health Concerns Assessment Noted Time PHQ-9 Depression Total Score: 5 10/11/19 24 9:23 PM CDT documented as of this encounter Care Teams Gun Mechanic Relationship Specialty Start Date End Date Soham James M.D., Ph.D. PCP - General 12/22/16 11/23/23 documented as of this encounter
--- OUTSIDE RECORDS SUMMARY | 2023-12-06 10:30 | XMS_ITS | Encounter Summary ---
Author Organization [facility] Address [address] [place] [address] Care Team Providers Care Gameplay Programmer Name Role Phone Soham James M.D., Ph.D. Primary Care Provider Reason for Visit * Reason Comments Med Change Request Encounter Details Date Type Department Care Team (Late st Contact Info) Description 09/15/2023 Refill Department of Family Medicine, [facility], in [address] [phone] Soham James M.D., Ph.D. [address] [place] [phone] Med Change Request Social History Tobacco Use [...] Total Score: 3 11/22/20 23 3:22 PM MEDIA PRODUCTION OPERATOR documented as of this encounter Care Teams Gameplay Programmer Relationship Specialty Start Date End Date Soham James M.D., Ph.D. PCP - General 12/22/16 11/23/23 documented as of this encounter
--- OUTSIDE RECORDS SUMMARY | 2023-12-06 10:30 | XMS_ITS | Encounter Summary ---
Author Organization [facility] Address [address] [place] [address] Care Team Providers Care Nascar Driver Name Role Phone Soham James M.D., Ph.D. Primary Care Provider Encounter Details Date Type Department Care Team (Late st Contact Info) Description 09/14/2023 Clinical Communication Department of Family Medicine, [facility], in [address] [phone] Soham James M.D., Ph.D. [address] [place] [address] Social History Tobacco Use Types [...] following references were used: nursing clinical judgement PRESS OPERATOR * Telephone Encounter - Marialuisa Benson - [...] send all scheduling replies to scheduling pool. PRESS OPERATOR documented in this encounter Plan of Treatment Not on file documented as of this encounter Visit Diagnoses Diagnosis Diabetes Mellitus Type 2 With Diabetic Neuropathy (HCC) documented in this encounter Additional Health Concerns Assessment Noted Time PHQ-9 Depression Total Score: 3 05/31/20 23 3:22 PM WEB PRESS OPERATOR documented as of this encounter Care Teams Nascar Driver Relationship Specialty Start Date End Date Soham James M.D., Ph.D. PCP - General 12/22/16 11/23/23 documented as of this encounter
--- OUTSIDE RECORDS SUMMARY | 2023-12-06 10:30 | XMS_ITS | Encounter Summary ---
Author Organization [facility] Address [address] [place] [address] Care Team Providers Care Marble Chip Terrazzo Worker Name Role Phone Soham James M.D., Ph.D. Primary Care Provider Reason for Visit * Reason Comments Med Refill Encounter Details Date Type Department Care Team (Late st Contact Info) Description 09/17/2023 Refill Department of Family Medicine, [facility], in [address] [phone] Soham James M.D., Ph.D. [address] [place] [phone] Med Refill Social History Tobacco Use Types [...] Total Score: 3 05/31/20 23 3:22 PM CHILDCARE DIRECTOR documented as of this encounter Care Teams Marble Chip Terrazzo Worker Relationship Specialty Start Date End Date Soham James M.D., Ph.D. PCP - General 12/22/16 11/23/23 documented as of this encounter
--- OUTSIDE RECORDS SUMMARY | 2023-12-06 10:30 | XMS_ITS | Clinical Summary ---
Author Organization [facility] Address [place], [place] [address] Care Team Providers Care Actuarial Clerk Name Role Phone Soham James MD Primary Care Provider [phone] Hao Drew MD Unavailable Allergies Active Allergy Reactions Criticality Noted Date Comments Esomeprazole Magnesium Nausea Only 11/12/2012 INCREASED ACID Penicillins Hives 04/15/2014 Ylquruy-Osz-Nfx Reductase Inhibitors Nausea Only,Myalgia 04/15/2014 Medications Medication [...] 05/05/2015 Hyperlipidemia 05/05/2015 CAD (coronary artery disease), [place] coronary a rtery 10/30/2014 Systolic murmur 09/29/2014 [...] Department Care Team Description 10/06/2023 Lab Requisition [facility] [phone] Jessica Barrow MD 10/05/2023 9:48 AM CDT - 10/05/2023 11:59 PM CDT Hospital Encounter [facility] [id number] [place] [address] [address] [place] [address] Zeny Isaac, Samina Nolasco, PT Left without seen 10/05/2023 Travel 10/03/2023 Patient Outreach [facility] [address] [place] [address] Bess Conroy [facility] Care Coordination - [facility] 09/22/2023 Telephone [facility] [address] [place] [phone] Hao Drew MD Results 09/21/2023 10:36 AM CDT - 09/21/2023 11:59 PM CDT Hospital Encounter [facility] [address] [place] [address] Zeny Isaac, Samina Nolasco, PT 09/21/2023 Travel 09/14/2023 10:43 AM CAMPAIGN CONSULTANT - 09/14/2023 11:59 PM CAMPAIGN CONSULTANT Hospital Encounter [facility] [address] [place] [address] Zeny Isaac, Samina Nolasco, PT 09/14/2023 Travel 09/07/2023 10:40 AM CAMPAIGN CONSULTANT - 09/07/2023 11:59 PM CAMPAIGN CONSULTANT Hospital Encounter [facility] [address] [place] [address] Zeny Isaac NP Bradshaw, Emily, PT 09/07/2023 Travel from Last 3 Months Immunizations Name [...] Comments Blood Pressure 130/70 08/17/2023 10:43 AM CAMPAIGN CONSULTANT Pulse 67 08/17/2023 10:43 AM CAMPAIGN CONSULTANT Temperature 36.7 ??C (98.1 ??F) 08/17/2023 10:[address] Respiratory Rate 20 08/17/2023 10:43 AM CAMPAIGN CONSULTANT Oxygen Saturation 100% 08/17/2023 10:43 AM CAMPAIGN CONSULTANT Inhaled Oxygen Concentration - - Weight 120.2 kg (265 lb) 07/31/2023 10:43 AM CAMPAIGN CONSULTANT Height 180.3 cm (5' 11) 07/31/2023 10:43 AM CAMPAIGN CONSULTANT Body Mass Index 36.96 07/31/2023 10:43 AM CAMPAIGN CONSULTANT Plan of Treatment Health Maintenance Due Date [...] 9, 08/18/2008 Medical Devices Implanted Type Area Photographer Motion Picture Device Identifier Shelf Expiration Date Model / Serial / Lot Cmnt Bone Simplex Hv Gentamicin - [id number] Implanted:Qty: 2 on 04/28/2014 by Amrik Falcon MD at [facility] Left: Knee [employer] 11/06/2014 6195-1-001 # / / [id number] Patella [id number] Triathlon Asymmetric X3 - [id number] Implanted:Qty: 1 on 04/28/2014 by Amrik Falcon MD at [facility] Left: Knee [employer] 02/06/2019 5551-G-350 # / / [id number] Fem Lt Sz7 Triathlon Post Stbznon Pors - [id number] Implanted:Qty: 1 on 04/28/2014 by Amrik Falcon MD at [facility] Left: Knee [employer] 02/06/2018 5515-F-701 # / / [id number] Baseplate Tib Sz6 Triathlon Pe - [id number] Implanted:Qty: 1 on 04/28/2014 by Amrik Falcon MD at [facility] Left: Knee [employer] 12/07/2018 5521-B-600 # / / [id number] Insert Knee Sz6 11mm Triathlonpost Stbz X3 - [id number] Implanted:Qty: 1 on 04/28/2014 by Amrik Falcon MD at [facility] Left: Knee [employer] 02/06/2019 5532-G-611 # / / [id number] Triathlon X3 Asymmetric Patella [id number] - [id number] Implanted:Qty: 1 on 08/14/2019 by Amrik Falcon MD at [facility] Right: Knee [employer] 02/19/2024 5551-G-381 -E / / [id number] Triathlon X3 Tibial Bearing Insert Cs Valery 5 Typ Cs Thkns 11mm - [id number] Implanted:Qty: 1 on 08/14/2019 by Amrik Falcon MD at [facility] Right: Knee [employer] 03/24/2024 5531-G-511 -E / / [id number] Cmnt Bone Simplex Hv - [id number] Implanted:Qty: 1 on 08/14/2019 by Amrik Falcon MD at [facility] Right: Knee [employer] 12/07/2020 6194-1-001 # / / [id number] Cmnt Bone Simplex Hv Gentamicin - [id number] Implanted:Qty: 1 on 08/14/2019 by Amrik Falcon MD at [facility] Right: Knee [employer] 06/08/2020 6195-1-001 # / / [id number] Fem Rt Sz6 Triathlon Cruc Ret Co Cr - [id number] Implanted:Qty: 1 on 08/14/2019 by Amrik Falcon MD at [facility] Right: Knee [employer] 01/11/2024 5510-F-602 # / / [id number] Baseplate Tib Sz5 Triathlon Pe - [id number] Implanted:Qty: 1 on 08/14/2019 by Amrik Falcon MD at [facility] Right: Knee [employer] 04/17/2024 5521-B-500 # / / [id number] Procedures Procedure Name Priority Date/Time Associated Diagnosis Comments REFERRAL ID/THANIANONURINE Routine 10/06/2023 11:30 AM CDT EXTENDED HOLTER Routine 09/20/2023 Paroxysmal atrial fibrillation (HC) from Last 3 Months Results * (ABNORMAL) REFERRAL ID/THANIANONURINE (10/06/2023 11:30 AM CDT) CULTURE RESULT(A) 10/10/2023 10:37 AM CDT [facility] CULTURE Streptococcus anginosus 10/10/2023 10:37 AM CDT [facility] Other Client Collect / Unknown 10/06/2023 11:30 AM CDT 10/06/2023 9:05 PM CDT Narrative Organism Antibiotic Method Susceptibility Streptococcus anginosus PENICILLIN <=0.06: S Streptococcus anginosus ERYTHROMYCIN R Streptococcus anginosus CLINDAMYCIN R Streptococcus anginosus VANCOMYCIN S Streptococcus anginosus CLARITHROMYCIN R Jessica Barrow MD MICROBIOLOGY [facility] [address] [place] [address], * EXTENDED HOLTER (09/20/2023) Hao Drew MD [...] 11:50 PM 08/09/2018 3:08 PM Care Teams Actuarial Clerk Relationship Specialty Start Date End Date Soham James MD [address] [place] [phone] PCP - General Family Practice 04/10/14 Hao Drew MD [address] [facility] [address] [facility] [address] [place] [address] Cardiology Cardiovascular Disease 12/30/19
--- OUTSIDE RECORDS SUMMARY | 2023-12-06 10:30 | XMS_ITS | Encounter Summary ---
Author Organization [facility] Address [address] [place] [address] Care Team Providers Care Seed Cleaning Machine Operator Name Role Phone Shanae Ugarte APRN, C.N.P. Primary Care Provide r Reason for Visit * Reason Comments Med Refill Encounter Details Date Type Department Care Team (Late st Contact Info) Description 11/27/2023 Refill Department of Family Medicine, [facility], in [address] [phone] Shanae Ugarte APRN, C.N.P. [address] [place] [phone] Med Refill Social History Tobacco Use Types [...] documented as of this encounter Care Teams Seed Cleaning Machine Operator Relationship Specialty Start Date End Date Shanae Ugarte APRN, C.N.P. [address] [place] [address] PCP - General 11/24/23 documented as of this encounter
--- OUTSIDE RECORDS SUMMARY | 2023-12-06 10:30 | XMS_ITS | Referral Summary ---
Author Organization [facility] Address [address] [place] [address] Care Team Providers Care Harp Regulator Name Role Phone Shanae Ugarte APRN, C.N.P. Primary Care Provide r Source Comments Patient records contain information from all sites at [facility]. For routine questions regarding patient records, call [phone] during business hours, M-F 8:00 AM - 5:00 PM Central Time. Record requests for emergency care only can be directed to [phone] at any time.[facility] Encounters Date Type Department Care Team Description 11/27/2023 Refill Department of Family Medicine, [facility], in [address] [address] Shanae Ugarte APRN, C.N.P. Med Refill 11/06/2023 Clinical Communication Department of Family [facility], [facility], [address] [address] Soham James M.D., Ph.D. [facility] Form ([facility]/Clinics (PT Outpatient Eval 11/02/23) 10/23/2023 Clinical Communication Department of Family [facility], [facility], in [address] [address] Soham James M.D., Ph.D. Form Review ([facility]. diabetic footwear ) 10/18/2023 Clinical Communication Department of Family Medicine, [facility], in [address] [address] Soham James M.D., Ph.D. 10/12/2023 Clinical Communication Department of Family [facility], [facility], [address] [address] Soham James M.D., Ph.D. PT Referral 10/11/2023 6:00 PM CDT Office Visit Department of Family Medicine, [facility], [address] [address] Soham James M.D., Ph.D. Coronary Artery Disease With Stable Angina (HCC) (Primary Dx); Stroke Cerebrovascular Accident Personal History; Hypersomnia; Apnea Sleep Obstructive; Dermatitis Seborrheic; Wound Foot Open Subsequent Right; Diabetes Mellitus Type 2 With Diabetic Neuropathy (HCC); 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); Pain Neck; Pain Shoulder Right Discharge Disposition: Home or Self Care 10/10/2023 Orders Only [facility] Soham James M.D., Ph.D. Diabetes Mellitus Type 2 With Diabetic Neuropathy (HCC) 09/17/2023 Nurse Triage Department of Family [facility], [facility], [address] [address] Tracey Thompson R.N. Med Question 09/17/2023 Refill Department of Family [facility], [facility], [address] [address] Soham James M.D., Ph.D. Med Refill 09/15/2023 Refill Department of Family Medicine, [facility], [address] [address] Soham James M.D., Ph.D. Med Change Request 09/14/2023 Refill Department of Family Medicine, [facility], [address] [address] Soham James M.D., Ph.D. Med Refill 09/14/2023 Clinical Communication Department of Family Medicine, [facility], in [address] [address] Soham James M.D., Ph.D. from Last 3 Months Allergies Active Allergy Reactions Criticality Noted Date Comments Esomeprazole Magnesium Nausea Only 11/12/2012 INCREASED ACID Penicillins Hives (Reselect Reaction) 04/15/2014 Vajugac-Mbo-Ggc Reductase Inhibitors Myalgia 04/15/2014 Medications Medication Sig [...] - MODE RNA (12 YEARS AND OLDER) [id number] 05/12/2023 SARS-COV-2 (COVID-19) - MODERNA(Discontinued) SARS-COV-2 (COVID-19) [...] 177 cm (5' 9.69) 05/31/2023 2:47 PM DIRECTOR OF SOLUTIONS ARCHITECTURE Body Mass Index 39.32 05/31/2023 2:47 PM DIRECTOR OF SOLUTIONS ARCHITECTURE Plan of Treatment Not on file Medical Devices Implanted Type Area Photo Producer Device Identifier Shelf Expiration Date Model / Serial / Lot Knee Implant- 0 Implanted:08/14 by Amrik Falcon M.D. (Quantity not on file) Knee Implant Knee Procedures Procedure Name Priority Date/Time Associated Diagnosis Comments HEMOGLOBIN A1C, B Routine 10/11/2023 7:1 2 PM CDT Diabetes Mellitus Type 2 With Diabetic Neuropathy (HCC) EXTI SODIUM, S/P Routine 07/05/2023 9:05 AM DIRECTOR OF SOLUTIONS ARCHITECTURE EXTI BASIC METABOLIC PANEL, S/P Routine 07/04/2023 11:49 PM DIRECTOR OF SOLUTIONS ARCHITECTURE EXTI THYROID-STIMULATI NG HORMONE-SENSITIVE (S-TSH), S Routine 06/19/2023 5:47 AM DIRECTOR OF SOLUTIONS ARCHITECTURE ALBUMIN, RANDOM, U Routine 05/31/2023 2:26 PM DIRECTOR OF SOLUTIONS ARCHITECTURE Diabetes Mellitus Type 2 With Diabetic Neuropathy [...] James M.D., Ph.D. LAB BLOOD ADD-O N [address] [address], [address] [address] * (ABNORMAL) Albumin, Random, Urine (05/31/2023 2:26 PM DIRECTOR OF SOLUTIONS ARCHITECTURE) Microalbumin 53.8 mg/L 05/31/2023 2:48 PM DIRECTOR OF SOLUTIONS ARCHITECTURE CNFL Creatinine 115 mg/dL 05/31/2023 2:48 PM DIRECTOR OF SOLUTIONS ARCHITECTURE CNFL Albumin/Creatinin e Ratio 47(H) <17 mg/g 05/31/2023 2:48 PM DIRECTOR OF SOLUTIONS ARCHITECTURE CNFL Urine (Urine, Midstream) 05/31/2023 2:26 PM DIRECTOR OF SOLUTIONS ARCHITECTURE 05/31/2023 2:26 PM DIRECTOR OF SOLUTIONS ARCHITECTURE Soham James M.D., Ph.D. LAB URINE ORDER SREEKANTH [address] [address], [address] [address] * US Aorta AAA Screening (05/05/2020 10:41 [...] 10:35 AM CDT [facility] Blood 10/06/2017 2:29 PM CDT 10/06/2017 9:44 PM CDT Narrative [facility] - 10/09/2017 10:35 AM CDT Specimen Information: Specimen ID: [id number] Specimen Type: Blood Specimen Collection Start Date: 10/06/2017 ??2:29 PM Specimen Received Date: 10/06/2017 ??9:44 PM Specimen ID: [id number] Specimen Type: Blood Specimen Collection Start Date: 10/06/2017 ??2:29 PM Specimen Received Date: 10/06/2017 ??9:44 PM Soham James M.D., Ph.D. LAB MICROBIOLOG Y - BLOOD ORDERABLES [facility] [address] [place] [address], [facility] from Last 3 Months or Most Recently Relevant to Health Maintenance Care Teams Harp Regulator Relationship Specialty Start Date End Date Shanae Ugarte APRN, C.N.P. [address] [place] [address] PCP - General 11/24/23
--- OUTSIDE RECORDS SUMMARY | 2023-12-06 10:30 | XMS_ITS ---
Author Organization [facility] Address [address] [place] [address] Care Team Providers Care Functional Skills Tutor Name Role Phone Unavailable Unavailable Unavailable Surgery Details Not on file Complications Check Surgery Details section. Procedure Estimated Blood Loss Check Surgery Details section. Procedure Findings Check Surgery Details section. Procedure Specimens Taken Check Surgery Details section.
--- OUTSIDE RECORDS SUMMARY | 2023-12-06 10:30 | XMS_ITS | Encounter Summary ---
Author Organization [facility] Address [address] [place] [address] Care Team Providers Care Barrel Waterer Name Role Phone Soham James M.D., Ph.D. Primary Care Provider Reason for Visit * Reason Onset Date Comments Med Question 09/17/2023 Encounter Details Date Type Department Care Team (Late st Contact Info) Description 09/17/2023 Nurse Triage Department of Family Medicine, [facility], in [address] [address] Tracey Thompson R.N. [address] [place] [address] Med Question Social History Tobacco [...] regarding Med Question. Assessment Concern: Sunita from [facility] pharmacy calls stating that patient called today to refill his Basaglar insulin because he is completely out. Reviewed medical record informed Sunita that an Rx was sent on 11/07/2022 which [facility] did not have. Verbal order provided to Sunita at [facility] The recommended disposition is Other. documented in this encounter Plan of Treatment Not on file documented as of this encounter Visit Diagnoses Not on filedocumented in this encounter Additional Health Concerns Assessment Noted Time PHQ-9 Depression Total Score: 3 05/31/20 23 3:22 PM AIRPLANE CABIN ATTENDANT documented as of this encounter Care Teams Barrel Waterer Relationship Specialty Start Date End Date Soham James M.D., Ph.D. PCP - General 12/22/16 11/23/23 documented as of this encounter
--- OUTSIDE RECORDS SUMMARY | 2023-12-06 10:30 | XMS_ITS | Encounter Summary ---
Author Organization [facility] Address [address] [place] [address] Care Team Providers Care Straight Ruling Machine Operator Name Role Phone Soham James M.D., Ph.D. Primary Care Provider Reason for Visit * Reason Onset Date Comments PT Referral 10/12/2023 Encounter Details Date Type Department Care Team (Late st Contact Info) Description 10/12/2023 Clinical Communication Department of Family Medicine, [facility], in [address] [address] Soham James M.D., Ph.D. [address] [place] [address] PT Referral Social History Tobacco [...] documented as of this encounter Care Teams Straight Ruling Machine Operator Relationship Specialty Start Date End Date Soham James M.D., Ph.D. PCP - General 12/22/16 11/23/23 documented as of this encounter
--- OUTSIDE RECORDS SUMMARY | 2023-12-06 10:30 | XMS_ITS | Encounter Summary ---
Author Organization [facility] Address [address] [place] [address] Care Team Providers Care Receptionist Name Role Phone Soham James M.D., Ph.D. Primary Care Provider Encounter Details Date Type Department Care Team (Late st Contact Info) Description 10/10/2023 Orders Only [facility] Soham James M.D., Ph.D. [address] [place] [address] Diabetes Mellitus Type 2 With [...] LAB BLOOD ADD-O N Performing Organization Address City/State/[facility] Co de Phone Number [facility] [address] [place] [address], [employer] [place] [address] documented in this encounter Visit Diagnoses Diagnosis Diabetes Mellitus Type 2 With Diabetic Neuropathy (HCC) documented in this encounter Additional Health Concerns Assessment Noted Time PHQ-9 Depression Total Score: 3 05/31/20 23 3:22 PM HOSPITAL MONITOR documented as of this encounter Care Teams Receptionist Relationship Specialty Start Date End Date Soham James M.D., Ph.D. PCP - General 12/22/16 11/23/23 documented as of this encounter
--- OUTSIDE RECORDS SUMMARY | 2023-12-06 10:30 | XMS_ITS | Clinical Summary ---
Author Organization [facility] Address [address] [place] [address] Care Team Providers Care Physician Chief Of Pathology Name Role Phone Shanae Ugarte APRN, C.N.P. Primary Care Provide r Source Comments Patient records contain information from all sites at [facility]. For routine questions regarding patient records, call [phone] during business hours, M-F 8:00 AM - 5:00 PM Central Time. Record requests for emergency care only can be directed to [phone] at any time.[facility] Allergies Active Allergy Reactions Criticality Noted Date Comments Esomeprazole Magnesium Nausea Only 11/12/2012 INCREASED ACID Penicillins Hives (Reselect Reaction) 04/15/2014 Zxlnyaf-Nof-Pww Reductase Inhibitors Myalgia 04/15/2014 Medications Medication Sig [...] Description 11/27/2023 Refill Department of Family Medicine, [facility], [address] [address] Shanae Ugarte APRN CJoshN.P. Med Refill 11/06/2023 Clinical Communication Department of Family [facility], [facility], [address] [address] Soham James M.D., Ph.D. [facility] Form ([facility] (PT Outpatient Eval 11/02/23) 10/23/2023 Clinical Communication Department of Family Medicine, [facility], [address] [address] Soham James M.D., Ph.D. Form Review ([facility]. diabetic footwear ) 10/18/2023 Clinical Communication Department of Family Medicine, [facility], [address] [address] Soham James M.D., Ph.D. 10/12/2023 Clinical Communication Department of Family Medicine, [facility], [address] [address] Soham James M.D., Ph.D. PT Referral 10/11/2023 6:00 PM CDT Office Visit Department of Family Medicine, [facility], [address] [address] Soham James M.D., Ph.D. Coronary Artery Disease [...] 09/17/2023 Nurse Triage Department of Family [facility], [facility], [address] [address] Tracey Thompson R.N. Med Question 09/17/2023 Refill Department of Family Medicine, [facility], [address] [place] [address] Soham James M.D., Ph.D. Med Refill 09/15/[address] [facility], [facility], [address] [place] [address] Soham James M.D., Ph.D. Med Change Request 09/14/2023 Refill Department of Family Medicine, [facility], in [address] [place] [address] Soham James M.D., Ph.D. Med Refill 09/14/[address] [facility], [facility], [address] [place] [address] Soham James M.D., Ph.D. from Last 3 [...] 177 cm (5' 9.69) 05/31/2023 2:47 PM RAT POISONER Body Mass Index 39.32 05/31/2023 2:47 PM RAT POISONER Plan of Treatment Health Maintenance Due Date [...] FIT Discontinued Medical Devices Implanted Type Area Fisher Trap Device Identifier Shelf Expiration Date Model / Serial / Lot Knee Implant- 0 Implanted:08/14 by Amrik Falcon M.D. (Quantity not on file) Knee Implant Knee Procedures Procedure Name Priority Date/Time Associated Diagnosis Comments HEMOGLOBIN A1C, B Routine 10/11/2023 7:1 2 PM CDT Diabetes Mellitus Type 2 With Diabetic Neuropathy (HCC) EXTI SODIUM, S/P Routine 07/05/2023 9:05 AM RAT POISONER EXTI BASIC METABOLIC PANEL, S/P Routine 07/04/2023 11:49 PM RAT POISONER EXTI THYROID-STIMULATI NG HORMONE-SENSITIVE (S-TSH), S Routine 06/19/2023 5:47 AM RAT POISONER ALBUMIN, RANDOM, U Routine 05/31/2023 2:26 PM RAT POISONER Diabetes Mellitus Type 2 With Diabetic Neuropathy [...] LAB BLOOD ADD-O N Performing Organization Address [facility] [address], [place] [address] * (ABNORMAL) Albumin, Random, Urine (05/31/2023 2:26 PM RAT POISONER) Microalbumin 53.8 mg/L 05/31/2023 2:48 PM RAT POISONER CNFL Creatinine 115 mg/dL 05/31/2023 2:48 PM RAT POISONER CNFL Albumin/Creatinin e Ratio 47(H) <17 mg/g 05/31/2023 2:48 PM RAT POISONER CNFL Urine (Urine, Midstream) 05/31/2023 2:26 PM RAT POISONER 05/31/2023 2:26 PM RAT POISONER Soham James M.D., Ph.D. LAB URINE ORDER SREEKANTH Performing Organization Address [facility] Co de Phone Number [address] [address], [facility] [place] [address] * [place] Aorta AAA Screening (05/05/2020 10:41 [...] negative for aneurysm. Soham James M.D., Ph.D. [facility] [place] US PROCEDUR ES * HCV AB Scrn w/Reflex to HCV PCR, S (10/06/2017 2:29 PM CDT) HCV Ab Screen, S Nonreactive Nonreactive 10/09/2017 10:35 AM CDT [facility] Blood 10/06/2017 2:29 PM CDT 10/06/2017 9:44 PM CDT Narrative [facility] - 10/09/2017 10:35 AM CDT Specimen Information: Specimen ID: [id number] Specimen Type: Blood Specimen Collection Start Date: 10/06/2017 ??2:29 PM Specimen Received Date: 10/06/2017 ??9:44 PM Specimen ID: [id number] Specimen Type: Blood Specimen Collection Start Date: 10/06/2017 ??2:29 PM Specimen Received Date: 10/06/2017 ??9:44 PM Soham James M.D., Ph.D. LAB MICROBIOLOG Y - BLOOD ORDERABLES [facility] [address] [place] [address] from Last 3 Months or Most Recently Relevant to Health Maintenance Care Teams Physician Chief Of Pathology Relationship Specialty Start Date End Date Shanae Ugarte APRN, C.N.P. [address] [place] [address] PCP - General 11/24/23
--- OUTSIDE RECORDS SUMMARY | 2023-12-06 10:30 | XMS_ITS | Encounter Summary ---
Author Organization [facility] Address [address] [place] [address] Care Team Providers Care Summer Sessions Director Name Role Phone Soham James M.D., Ph.D. Primary Care Provider Reason for Visit * Reason Comments Med Refill Encounter Details Date Type Department Care Team (Late st Contact Info) Description 09/14/2023 Refill Department of Family Medicine, [facility], in [address] [address] Soham James M.D., Ph.D. [address] [place] [phone] Med Refill Social History Tobacco Use Types [...] Total Score: 3 11/22/20 23 3:22 PM HIGH SCHOOL ASSISTANT PRINCIPAL documented as of this encounter Care Teams Summer Sessions Director Relationship Specialty Start Date End Date Soham James M.D., Ph.D. PCP - General 12/22/16 11/23/23 documented as of this encounter
--- OUTSIDE RECORDS SUMMARY | 2023-12-06 10:30 | XMS_ITS | Encounter Summary ---
Author Organization [facility] Address [address] [place] [address] Care Team Providers Care Energy Systems Engineer Name Role Phone Soham James M.D., Ph.D. Primary Care Provider Reason for Referral * Medication Prior Authorization - Closed Specialty Diagnoses / Procedures Referred By Contac t Referred To Contact Diagnoses Diabetes Mellitus Type 2 With Diabetic Neuropathy (HCC) Soham James M.D., Ph.D. [address] [facility] [place] [address] Referral ID Status Reason Start Date Expiration Date Visits Re quested Visits Authorized [id number] Closed 1 1 Encounter Details Date Type Department Care Team (Late st Contact Info) Description 10/18/2023 Clinical Communication Department of Family Medicine, [facility], in [address] [phone] Soham James M.D., Ph.D. [address] [place] [address] Social History Tobacco Use Types [...] documented as of this encounter Care Teams Energy Systems Engineer Relationship Specialty Start Date End Date Soham James M.D., Ph.D. PCP - General 12/22/16 11/23/23 documented as of this encounter
--- OUTSIDE RECORDS SUMMARY | 2023-12-06 10:30 | XMS_ITS | Encounter Summary ---
Author Organization [facility] Address [address] [place] [address] Care Team Providers Care Air Sampler Name Role Phone Soham James M.D., Ph.D. Primary Care Provider Reason for Visit * Reason Onset Date Comments Form Review 10/23/2023 [facility] diabetic footwear Encounter Details Date Type Department Care Team (Latest Contact Info) Description 10/23/2023 Clinical Communication Department of Family Medicine, [facility], in [address] [address] Soham James M.D., Ph.D. [address] [place] [address] Form Review ([facility] diabetic footwear ) Social History Tobacco Use [...] Soham James M.D., Ph.D. for electronic review/signature. NARCOTICS AND/OR VICE DETECTIVE: [facility] PHONE NUMBER: [phone] INFO REQUESTED: diabetic footwear INSTRUCTIONS: Fax information to [phone] documented in this encounter Plan of Treatment Not on file documented as of this encounter Visit Diagnoses Not on filedocumented in this encounter Additional Health Concerns Assessment Noted Time PHQ-9 Depression Total Score: 5 10/11/19 9:23 PM CDT documented as of this encounter Care Teams Air Sampler Relationship Specialty Start Date End Date Soham James M.D., Ph.D. PCP - General 12/22/16 11/23/23 documented as of this encounter
--- OUTSIDE RECORDS SUMMARY | 2023-12-06 10:31 | XMS_ITS | Encounter Summary ---
Author Organization [facility] Address [address] [place] [address] Care Team Providers Care Fire Department Battalion Chief Name Role Phone Soham James M.D., Ph.D. Primary Care Provider Reason for Visit * Reason Comments Med Change Request Encounter Details Date Type Department Care Team (Late st Contact Info) Description 08/30/2023 Refill Department of Family Medicine, [facility], in [address] [address] Soham James M.D., Ph.D. [address] [place] [address] Med Change Request Social History [...] Total Score: 3 05/31/20 23 3:22 PM SENIOR SOFTWARE DEVELOPMENT ENGINEER documented as of this encounter Care Teams Fire Department Battalion Chief Relationship Specialty Start Date End Date Soham James M.D., Ph.D. PCP - General 12/22/16 11/23/23 documented as of this encounter
--- OUTSIDE RECORDS SUMMARY | 2023-12-06 10:31 | XMS_ITS | Referral Summary ---
Author Organization [facility] Address [address] [place] [address] Care Team Providers Care Board Operator Name Role Phone Soham James MD Primary Care Provider [phone] Allergies Active Allergy Reactions Criticality Noted Date [...] Comments Blood Pressure 118/67 08/07/2018 9:20 AM PROFESSOR OF MANAGEMENT Pulse 64 08/07/2018 9:20 AM PROFESSOR OF MANAGEMENT Temperature 36.6 ??C (97.9 ??F) 08/21/2012 8:20 AM CS T Respiratory Rate 20 08/07/2018 9:30 AM PROFESSOR OF MANAGEMENT Oxygen Saturation 91% 08/07/2018 9:27 AM PROFESSOR OF MANAGEMENT Inhaled Oxygen Concentration - - Weight 124.7 kg (275 lb) 08/07/2018 7:52 AM PROFESSOR OF MANAGEMENT Height 177.8 cm (5' 10) 08/07/2018 7:52 AM PROFESSOR OF MANAGEMENT Body Mass Index 39.46 08/07/2018 7:52 AM PROFESSOR OF MANAGEMENT Plan of Treatment Not on file Procedures Procedure Name Priority Date/Time Associated Diagnosis Comments COLONOSCOPY Routine 08/07/2018 8:13 AM PROFESSOR OF MANAGEMENT GLUCOSE BY METER Routine 08/21/2012 7:19 AM PROFESSOR OF MANAGEMENT from Last 3 Months or Most Recently Relevant to Health Maintenance Results * COLONOSCOPY (08/07/2018 8:13 AM PROFESSOR OF MANAGEMENT) [facility] COLONOSCOPY [facility] Endoscopy Department ___ Patient Name: Shin Best ? Procedure Date: 08/07/2018 8:13 AM ? Date of : 1945 ? Admit Type: Outpatient Age: 73 ? Room: 3 Note Status: Finalized ?Attending MD: Abraham Milner , Total Sedation Time: 41 mins of continuous bedside 1:1 Instrument Name: 325 [id number] AdultColonoscope ___ Procedure: ?Colonoscopy Indications: ?Screening for [...] Procedure Code(s): ? --- Professional --- ? 81583, Colonoscopy, flexible; with removal of tumor(s), polyp(s), or ? other lesion(s) by snare technique Diagnosis Code(s): ? --- Professional --- ? Z12.11, Encounter for screening for malignant neoplasm of colon ? K62.1, Rectal polyp CPT copyright 2017 [employer]. All rights reserved. The codes documented in this report are preliminary and upon cable inspector review may be revised to meet current compliance requirements. Abraham Milner, 08/07/2018 9:10:30 AM I was physically present for the entire viewing portion of the exam. Abraham Milner Number of Addenda: 0 Note Initiated On: 08/07/2018 8:13 AM MRN: ?[id number] Procedure Date: ? 08/07/2018 8:13:49 AM Scope Withdrawal Time: 0 hours 13 minutes 27 seconds Total Procedure Duration: 0 hours 40 minutes 58 seconds Estimated Blood Loss: ? Scope In: 8:20:39 AM Scope Out: 9:01:37 AM RADIOLOGY RESULTS 08/07/2018 8:13 AM PROFESSOR OF MANAGEMENT Soham James MD PROCEDURES RADIOLOGY RESULTS * Glucose by meter (08/21/2012 7:19 AM PROFESSOR OF MANAGEMENT) Glucose 79 60 - 99 mg/dL POINT OF CARE TEST, GLUCOSE Comment:Dr/RN Notified 08/21/2012 7:19 AM PROFESSOR OF MANAGEMENT 08/21/2012 7:25 AM PROFESSOR OF MANAGEMENT Stacy Ayers MD [facility] POCT POINT OF CARE TEST, GLUCOSE from Last 3 Months or Most Recently Relevant to Health Maintenance Care Teams Board Operator Relationship Specialty Start Date End Date Soham James MD [facility] [address] [place] [address] PCP - General Family Practice 07/25/12
--- OUTSIDE RECORDS SUMMARY | 2023-12-06 10:31 | XMS_ITS | Encounter Summary ---
Author Organization [facility] Address [address] [place] [address] Care Team Providers Care Fern Picker Name Role Phone Soham James MD Primary Care Provider [phone] Encounter Details Date Type Department Care Team (Late st Contact Info) Description 2023 Telephone [facility] [address] [facility] [address] [place] [address] Piper Castanon, DPMikki, Podiatry/Foot and Ankle Surgery [address] [place], [place] [address] Social History Tobacco Use Types Packs/Day Years [...] referral we received from Dr. Soham James ([facility]) via fax this morning. Scheduled patient to see Dr. Castanon on June 20 in [place]. Patient requested the building address be sent to him via mail, so a letter was sent out. Patient was appreciative of the call. Dionte Rodrigez, Visit Sort Line Worker CIATE SALES MANAGER documented in this encounter Plan of Treatment Not on file documented as of this encounter Visit Diagnoses Not on filedocumented in this encounter Care Teams Fern Picker Relationship Specialty Start Date End Date Soham James MD [facility] [address] [place] [address] PCP - General Family Practice 07/25/12 documented as of this encounter
--- OUTSIDE RECORDS SUMMARY | 2023-12-06 10:31 | XMS_ITS | Clinical Summary ---
Author Organization [facility] Address [address] [place] [address] Care Team Providers Care Highway Technician Name Role Phone Soham James MD Primary Care Provider [phone] Allergies Active Allergy Reactions Criticality Noted Date [...] Comments Blood Pressure 118/67 08/07/2018 9:20 AM BOX MAKER WOOD Pulse 64 08/07/2018 9:20 AM BOX MAKER WOOD Temperature 36.6 ??C (97.9 ??F) 08/21/2012 8:20 AM CS T Respiratory Rate 20 08/07/2018 9:30 AM BOX MAKER WOOD Oxygen Saturation 91% 08/07/2018 9:27 AM BOX MAKER WOOD Inhaled Oxygen Concentration - - Weight 124.7 kg (275 lb) 08/07/2018 7:52 AM BOX MAKER WOOD Height 177.8 cm (5' 10) 08/07/2018 7:52 AM BOX MAKER WOOD Body Mass Index 39.46 08/07/2018 7:52 AM BOX MAKER WOOD Plan of Treatment Health Maintenance Due Date [...] Diagnosis Comments COLONOSCOPY Routine 08/07/2018 8:13 AM BOX MAKER WOOD GLUCOSE BY METER Routine 08/21/2012 7:19 AM BOX MAKER WOOD from Last 3 Months or Most Recently Relevant to Health Maintenance Results * COLONOSCOPY (08/07/2018 8:13 AM BOX MAKER WOOD) [facility] COLONOSCOPY [facility] Endoscopy Department ___ Patient Name: Shin Best ? Procedure Date: 08/07/2018 8:13 AM ? Date of : 1945 ? Admit Type: Outpatient Age: 73 ? Room: 3 Note Status: Finalized ?Attending MD: Abraham Milner , Total Sedation Time: 41 mins of continuous bedside 1:1 Instrument Name: 325 [id number] AdultColonoscope ___ Procedure: ?Colonoscopy Indications: ?Screening for [...] Procedure Code(s): ? --- Professional --- ? 36658, Colonoscopy, flexible; with removal of tumor(s), polyp(s), or ? other lesion(s) by snare technique Diagnosis Code(s): ? --- Professional --- ? Z12.11, Encounter for screening for malignant neoplasm of colon ? K62.1, Rectal polyp CPT copyright 2017 [employer]. All rights reserved. The codes documented in this report are preliminary and upon precipitation equipment tender review may be revised to meet current compliance requirements. Abraham Milner, 08/07/2018 9:10:30 AM I was physically present for the entire viewing portion of the exam. Abraham Milner Number of Addenda: 0 Note Initiated On: 08/07/2018 8:13 AM MRN: ?[id number] Procedure Date: ? 08/07/2018 8:13:49 AM Scope Withdrawal Time: 0 hours 13 minutes 27 seconds Total Procedure Duration: 0 hours 40 minutes 58 seconds Estimated Blood Loss: ? Scope In: 8:20:39 AM Scope Out: 9:01:37 AM RADIOLOGY RESULTS 08/07/2018 8:13 AM BOX MAKER WOOD Soham James MD PROCEDURES RADIOLOGY RESULTS * Glucose by meter (08/21/2012 7:19 AM BOX MAKER WOOD) Glucose 79 60 - 99 mg/dL POINT OF CARE TEST, GLUCOSE Comment:Dr/RN Notified 08/21/2012 7:19 AM BOX MAKER WOOD 08/21/2012 7:25 AM BOX MAKER WOOD Stacy Ayers MD LAB - BEAKER POCT Performing Organization Address City/[facility] Co de Phone Number POINT OF CARE TEST, GLUCOSE from Last 3 Months or Most Recently Relevant to Health Maintenance Care Teams Highway Technician Relationship Specialty Start Date End Date Soham James MD [facility] [address] [place] [address] PCP - General Family Practice 07/25/12
--- OUTSIDE RECORDS SUMMARY | 2023-12-06 10:31 | XMS_ITS | Encounter Summary ---
Author Organization [facility] Address [address] [place] [address] Care Team Providers Care Fourchette Sewer Name Role Phone Soham James M.D., Ph.D. Primary Care Provider Reason for Visit * Reason Comments Med Change Request Encounter Details Date Type Department Care Team (Late st Contact Info) Description 08/23/2023 Refill Department of Family Medicine, [facility], in [address] [address] Soham James M.D., Ph.D. [address] [place] [phone] Med Change Request Social History Tobacco Use [...] Total Score: 3 05/31/20 23 3:22 PM RESIDENT MANAGER documented as of this encounter Care Teams Fourchette Sewer Relationship Specialty Start Date End Date Soham James M.D., Ph.D. PCP - General 12/22/16 11/23/23 documented as of this encounter
== END 2023-12-06 10:28 | disposition home or self-care (01) ==
LOC: WOUND 10:27
PROVIDERS: PCP Family Medicine; Visit Provider Surgery
DX: E11.621 Type 2 diabetes mellitus with foot ulcer (principal); L97.512 Non-pressure chronic ulcer of other part of right foot with fat layer exposed; I89.0 Lymphedema, not elsewhere classified; Z79.4 Long term (current) use of insulin
CPT/HCPCS: 97597

== ENCOUNTER 2023-12-13 10:27 | Outpatient (CLI) | payer MEDICARE, BC, SELFPAY | END 2023-12-13 10:28 | disposition home or self-care (01) | LOC: WOUND 10:27 | PROVIDERS: PCP Family Medicine; Visit Provider Surgery | DX: E11.621 Type 2 diabetes mellitus with foot ulcer (principal); L97.512 Non-pressure chronic ulcer of other part of right foot with fat layer exposed; Z79.4 Long term (current) use of insulin; Z79.84 Long term (current) use of oral hypoglycemic drugs | CPT/HCPCS: 15275; Q4151 ==

== ENCOUNTER 2023-12-19 11:45 | Outpatient (RCR) | payer MEDICARE, BC, SELFPAY | END 2024-04-17 23:59 | disposition home or self-care (01) | PROVIDERS: PCP Family Medicine; Visit Provider Family Medicine | DX: Z86.73 Personal history of transient ischemic attack (TIA), and cerebral infarction without residual deficits (principal); Z86.74 Personal history of sudden cardiac arrest; Z51.89 Encounter for other specified aftercare | CPT/HCPCS: 97165; 97535 ==

== ENCOUNTER 2023-12-20 10:25 | Outpatient (CLI) | payer MEDICARE, BC, SELFPAY | END 2023-12-20 10:26 | disposition home or self-care (01) | LOC: WOUND 10:26 | PROVIDERS: PCP Family Medicine; Visit Provider Surgery | DX: E11.621 Type 2 diabetes mellitus with foot ulcer (principal); L97.512 Non-pressure chronic ulcer of other part of right foot with fat layer exposed; I89.0 Lymphedema, not elsewhere classified; Z79.4 Long term (current) use of insulin; Z79.84 Long term (current) use of oral hypoglycemic drugs | CPT/HCPCS: 97597 ==

== ENCOUNTER 2023-12-27 10:25 | Outpatient (CLI) | payer MEDICARE, BC, SELFPAY | END 2023-12-27 10:26 | disposition home or self-care (01) | LOC: WOUND 10:26 | PROVIDERS: PCP Family Medicine; Visit Provider Surgery | DX: E11.621 Type 2 diabetes mellitus with foot ulcer (principal); I87.2 Venous insufficiency (chronic) (peripheral); L97.512 Non-pressure chronic ulcer of other part of right foot with fat layer exposed; I89.0 Lymphedema, not elsewhere classified; Z79.4 Long term (current) use of insulin | CPT/HCPCS: 97597 ==

== ENCOUNTER 2024-01-03 10:25 | Outpatient (CLI) | payer MEDICARE, BC, SELFPAY ==
--- OUTSIDE RECORDS SUMMARY | 2024-01-03 10:27 | XMS_ITS | Clinical Summary ---
Author Organization [facility] Address [place], [place] [address] Care Team Providers Care Product Test Engineer Name Role Phone Soham James MD Primary Care Provider Hao Drew MD Unavailable [phone] Allergies Active Allergy Reactions Criticality Noted Date Comments Esomeprazole Magnesium Nausea Only 11/12/2012 INCREASED ACID Penicillins Hives 04/15/2014 Cjnrlaz-Nch-Jyr Reductase Inhibitors Nausea Only,Myalgia 04/15/2014 Medications Medication [...] 05/05/2015 Hyperlipidemia 05/05/2015 CAD (coronary artery disease), [place] coronary a rtery 10/30/2014 Systolic murmur 09/29/2014 [...] Encounters Date Type Department Care Team Description 12/27/2023 Patient Outreach [facility] [address] [place] [address] Bess Conroy [facility] Care Coordination - [facility] 10/06/2023 Lab Requisition [facility] [phone] Jessica Barrow MD 10/05/2023 9:48 AM CDT - 10/05/2023 11:59 PM CDT Hospital Encounter [facility] [address] [place] [address] [address] [place] [address] Zeny Isaac, Samina Nolasco, PT Left without seen 10/05/2023 Travel 10/03/2023 Patient Outreach [facility] [address] [place], [place] [phone] Bess Con[facility] Care Coordination - [facility] from Last 3 Months Immunizations Name Administration [...] Comments Blood Pressure 130/70 08/17/2023 10:43 AM LOCOMOTIVE ENGINEER ELECTRIC Pulse 67 08/17/2023 10:43 AM LOCOMOTIVE ENGINEER ELECTRIC Temperature 36.7 ??C (98.1 ??F) 08/17/2023 10:[address] Respiratory Rate 20 08/17/2023 10:43 AM LOCOMOTIVE ENGINEER ELECTRIC Oxygen Saturation 100% 08/17/2023 10:43 AM LOCOMOTIVE ENGINEER ELECTRIC Inhaled Oxygen Concentration - - Weight 120.2 kg (265 lb) 07/31/2023 10:43 AM LOCOMOTIVE ENGINEER ELECTRIC Height 180.3 cm (5' 11) 07/31/2023 10:43 AM LOCOMOTIVE ENGINEER ELECTRIC Body Mass Index 36.96 07/31/2023 10:43 AM LOCOMOTIVE ENGINEER ELECTRIC Plan of Treatment Upcoming Encounters Date Type Department Care Team (Late st Contact Info) Description 02/05/2024 4:00 PM CDT Office Visit [facility] [address] [place], [place] [phone] [place] [address] [place], [place] [phone] Health Maintenance Due Date Last Done Comments [...] 9, 08/18/2008 Medical Devices Implanted Type Area Financial Cost Analyst Device Identifier Shelf Expiration Date Model / Serial / Lot Cmnt Bone Simplex Hv Gentamicin - [id number] Implanted:Qty: 2 on 04/28/2014 by Amrik Falcon MD at [facility] Left: Knee [employer] 11/06/2014 6195-1-001 # / / [id number] Patella 26l98va Triathlon Asymmetric X3 - [id number] Implanted:Qty: 1 on 04/28/2014 by Amrik Falcon MD at [facility] Left: Knee [employer] 02/06/2019 5551-G-350 # / / [id number] Fem Lt Sz7 Triathlon Post Stbznon Pors - [id number] Implanted:Qty: 1 on 04/28/2014 by Amrik Falcon MD at [facility] Left: Knee [employer] 02/06/2018 5515-F-701 # / / [id number] Baseplate Tib Sz6 Triathlon Pe - [id number] Implanted:Qty: 1 on 04/28/2014 by Amrik Falcon MD at [facility] Left: Knee [employer] 12/07/2018 5521-B-600 # / / [id number] Insert Knee Sz6 11mm Triathlonpost Stbz X3 - [id number] Implanted:Qty: 1 on 04/28/2014 by Amrik Falcon MD at [facility] Left: Knee [employer] 02/06/2019 5532-G-611 # / / [id number] Triathlon X3 Asymmetric Patella E40d11zz - [id number] Implanted:Qty: 1 on 08/14/2019 by Amrik Falcon MD at [facility] Right: Knee [employer] 02/19/2024 5551-G-381 -E / / [id number] Triathlon X3 Tibial Bearing Insert Cs Valery 5 Typ Cs Thkns 11mm - [id number] Implanted:Qty: 1 on 08/14/2019 by Amrik Falcon MD at [facility] Right: Knee [employer] 03/24/2024 5531-G-511 -E / / [id number] Cmnt Bone Simplex Hv - [id number] Implanted:Qty: 1 on 08/14/2019 by Amrik Falcon MD at [facility] Right: Knee [employer] 12/07/2020 6194-1-001 # / / [id number] Cmnt Bone Simplex Hv Gentamicin - [id number] Implanted:Qty: 1 on 08/14/2019 by Amrik Falcon MD at [facility] Right: Knee [employer] 06/08/2020 6195-1-001 # / / [id number] Fem Rt Sz6 Triathlon Cruc Ret Co Cr - [id number] Implanted:Qty: 1 on 08/14/2019 by Amrik Falcon MD at [facility] Right: Knee [employer] 01/11/2024 5510-F-602 # / / [id number] Baseplate Tib Sz5 Triathlon Pe - [id number] Implanted:Qty: 1 on 08/14/2019 by Amrik Falcon MD at [facility] Right: Knee [employer] 04/17/2024 5521-B-500 # / / [id number] Procedures Procedure Name Priority Date/Time Associated Diagnosis Comments REFERRAL ID/SUSC,NONURINE Routine 10/06/2023 11:30 AM CDT from Last 3 Months Results * (ABNORMAL) REFERRAL ID/SUSC,NONURINE (10/06/2023 11:30 AM CDT) CULTURE RESULT(A) 10/10/2023 10:37 AM CDT [facility] CULTURE Streptococcus anginosus 10/10/2023 10:37 AM CDT [facility] Other Client Collect / Unknown 10/06/2023 11:30 AM CDT 10/06/2023 9:05 PM CDT Narrative Organism Antibiotic Method Susceptibility Streptococcus anginosus PENICILLIN <=0.06: S Streptococcus anginosus ERYTHROMYCIN R Streptococcus anginosus CLINDAMYCIN R Streptococcus anginosus VANCOMYCIN S Streptococcus anginosus CLARITHROMYCIN R Jessiac Barrow MD MICROBIOLOGY [facility] [address] [place] [address], from Last 3 Months Advance Directives * [...] 11:50 PM 08/09/2018 3:08 PM Care Teams Product Test Engineer Relationship Specialty [place] [address] [address] PCP - General Family Practice 04/10/14 Hao Drew MD [address] [facility] [address] [place] [address] Cardiology Cardiovascular Disease 12/30/19
--- OUTSIDE RECORDS SUMMARY | 2024-01-03 10:27 | XMS_ITS | Clinical Summary ---
Author Organization [facility] Address [address] [place] [address] Care Team Providers Care Automation/Controls Manager Name Role Phone Shanae Ugarte APRN, C.N.P. Primary Care Provide r Source Comments Patient records contain information from all sites at [facility]. For routine questions regarding patient records, call [phone] during business hours, M-F 8:00 AM - 5:00 PM Central Time. Record requests for emergency care only can be directed to [phone] at any time.[facility] Allergies Active Allergy Reactions Criticality Noted Date Comments Esomeprazole Magnesium Nausea Only 11/12/2012 INCREASED ACID Penicillins Hives (Reselect Reaction) 04/15/2014 Lbqyhgs-Mdw-Sun Reductase Inhibitors Myalgia 04/15/2014 Medications Medication Sig [...] 810 capsule 3 10/11/2023 5 Active DME CPAPIndications:Photographic Laboratory Technician ea Sleep Obstructive DME Order 1 each [...] blood sugar diagnostic strips (Accu-Chek Guide test strips)Indications: 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) TEST 3 TIMES DAILY. 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 Full Remission 07/11 Diabetes Mellitus Type 2 Wit h Other Circulatory Complication 07/30/2019 Venous Insufficiency Chronic Peripheral 07/30/19 Primary Central Sleep Apnea 06/25/2019 Apnea Sleep Obstructive 06/25/2019 Diabetes Mellitus Type 2 With Diabetic Neuropath y 05/23/2016 Overview: DM2 Neuropathy Uncontrolled Dysfunction Erectile 04/12/2016 Hypothyroidism 05/05/2015 Hyperlipidemia 05/05/2015 [...] Encounters Date Type Department Care Team Description 01/02/2024 Clinical Communication Department of Family Medicine, [facility], in [address] [phone] Shanae Ugarte APRN, C.N.P. 11/27/2023 Refill Department of Family [facility], [facility], [address] [address] Shanae Ugarte APRN, C.N.P. Med Refill 11/06/2023 Clinical Communication Department of Family [facility], [facility], [address] [phone] Soham James M.D., Ph.D. [facility] Form ([facility]/Clinics (PT Outpatient Eval 11/02/23) 10/23/2023 Clinical Communication Department of Family Medicine, [facility], [address] [address] Soham James M.D., Ph.D. Form Review ([facility]. diabetic footwear ) 10/18/2023 Clinical Communication Department of Family Medicine, [facility], [address] [place] [address] Soham James M.D., Ph.D. 10/12/2023 Clinical Communication Department of Family [facility], [facility], [address] [address] Soham James M.D., Ph.D. PT Referral 10/11/2023 6:00 PM CDT Office Visit Department of Family Medicine, [facility], [address] [address] Soham James M.D., Ph.D. Coronary Artery Disease With Stable Angina (HCC) (Primary Dx); Stroke Cerebrovascular Accident Personal History; Hypersomnia; Apnea Sleep Obstructive; Dermatitis Seborrheic; Wound Foot Open Subsequent Right; Diabetes Mellitus Type 2 With Diabetic Neuropathy (HCC); 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); Pain Neck; Pain Shoulder Right Discharge Disposition: Home or Self Care 10/10/2023 Orders Only [facility] PCP [facility] Soham James M.D., Ph.D. Diabetes Mellitus Type 2 With Diabetic Neuropathy (HCC) from Last 3 Months Immunizations Name Administration Dates Next Due H1N1 All Forms 08/10/2009 Influenza Split Preservative Free ID 05/15/2012 Influenza TIV (IM) 08/25/2006 Influenza high dose QV(65 years or older) (PF) 1 ,04/20/2020 Influenza, Quadrivalent, Adjuvanted, Preservativ e Free 05/12/2023 Influenza, Seasonal, Injectable 08/25/2006 PCV13 08/18/2008 PPSV23 12/04/2018 SARS-COV-2 (COVID-19) - MODE RNA (12 YEARS AND OLDER) [id number] 05/12/2023 SARS-COV-2 (COVID-19) - MODERNA(Discontinued) SARS-COV-2 (COVID-19) [...] 177 cm (5' 9.69) 05/31/2023 2:47 PM WEB DEVELOPMENT MANAGER Body Mass Index 39.32 05/31/2023 2:47 PM WEB DEVELOPMENT MANAGER Plan of Treatment Health Maintenance Due Date [...] FIT Discontinued Medical Devices Implanted Type Area Plumber And Tinner Device Identifier Shelf Expiration Date Model / Serial / Lot Knee Implant- 0 Implanted:08/14 by Amrik Falcon M.D. (Quantity not on file) Knee Implant Knee Procedures Procedure Name Priority Date/Time Associated Diagnosis Comments HEMOGLOBIN A1C, B Routine 10/11/2023 7:1 2 PM CDT Diabetes Mellitus Type 2 With Diabetic Neuropathy (HCC) EXTI SODIUM, S/P Routine 07/05/2023 9:05 AM WEB DEVELOPMENT MANAGER EXTI BASIC METABOLIC PANEL, S/P Routine 07/04/2023 11:49 PM WEB DEVELOPMENT MANAGER EXTI THYROID-STIMULATI NG HORMONE-SENSITIVE (S-TSH), S Routine 06/19/2023 5:47 AM WEB DEVELOPMENT MANAGER ALBUMIN, RANDOM, U Routine 05/31/2023 2:26 PM WEB DEVELOPMENT MANAGER Diabetes Mellitus Type 2 With Diabetic Neuropathy [...] James M.D., Ph.D. LAB BLOOD ADD-O N [facility] [address] [place] [address], [place] [address] * (ABNORMAL) Albumin, Random, Urine (05/31/2023 2:26 PM WEB DEVELOPMENT MANAGER) Microalbumin 53.8 mg/L 05/31/2023 2:48 PM WEB DEVELOPMENT MANAGER CNFL Creatinine 115 mg/dL 05/31/2023 2:48 PM WEB DEVELOPMENT MANAGER CNFL Albumin/Creatinin e Ratio 47(H) <17 mg/g 05/31/2023 2:48 PM WEB DEVELOPMENT MANAGER CNFL Urine (Urine, Midstream) 05/31/2023 2:26 PM WEB DEVELOPMENT MANAGER 05/31/2023 2:26 PM WEB DEVELOPMENT MANAGER Soham James M.D., Ph.D. LAB URINE ORDER SREEKANTH Performing Organization Address City/[facility]/ZIP Co de Phone Number [facility] [address] [place] [address], [facility] CNFL [facility] in [address] [address] * US Aorta AAA Screening (05/05/2020 10:41 [...] negative for aneurysm. Soham James M.D., Ph.D. [facility] US PROCEDUR ES * HCV AB Scrn w/Reflex to HCV PCR, S (10/06/2017 2:29 PM CDT) HCV Ab Screen, S Nonreactive Nonreactive 10/09/2017 10:35 AM CDT [facility] Blood 10/06/2017 2:29 PM CDT 10/06/2017 9:44 PM CDT Narrative [facility] - 10/09/2017 10:35 AM CDT Specimen Information: Specimen ID: [id number] Specimen Type: Blood Specimen Collection Start Date: 10/06/2017 ??2:29 PM Specimen Received Date: 10/06/2017 ??9:44 PM Specimen ID: [id number] Specimen Type: Blood Specimen Collection Start Date: 10/06/2017 ??2:29 PM Specimen Received Date: 10/06/2017 ??9:44 PM Soham James M.D., Ph.D. LAB MICROBIOLOG Y - BLOOD ORDERABLES [facility] [address] [place] [address], [facility] from Last 3 Months or Most Recently Relevant to Health Maintenance Care Teams Automation/Controls Manager Relationship Specialty Start Date End Date Shanae Ugarte APRN, C.N.P. [address] [place] [address] PCP - General 11/24/23
--- OUTSIDE RECORDS SUMMARY | 2024-01-03 10:27 | XMS_ITS | Continuity of Care Document ---
Author Organization [facility] Address [address] [facility] [address] [place] [address] Phone Care Team Providers Care Piano Assembler Name Role Phone Roshni Rousseau DPT Unavailable [...] Providers Copied on Encounter [facility], [address], [place], [place], [id number], [place] tel:[phone] [place] [facility] No Information 3 Soham Barakat. [address], [address], [place], [address], [place]. tel:[phone] [facility], [address], [place], [place], [id number], [place] tel:[phone] [facility] Spinal stenosis, lumbar region with neurogenic claudicationRadic ulopathy, lumbar regionType 2 diabetes mellitus with diabetic neuropathy, unsp 3 Soham Barakat. [address], [address], [place], [address], [place]. tel:[phone] Referring Provider: Laron Basurto, [address], [facility] [place], [address] . tel:[phone] Psychiatric Diagnostic Evaluation Telephone Only [facility], [address], [place], [place], [id number], [place] tel:[phone] [facility] Pain disorder with related psychological factors 3 Selwyn Pabon. [address], [address], [place], [address], [place]. tel:[phone] Referring Provider: Laron Basurto, [address], [place], [address] . tel:[phone] [facility], [address], [place], [place], [id number], [place] tel:[phone] [facility] Spinal stenosis, lumbar region with neurogenic claudicationRadic ulopathy, lumbar region 3 Foster Sam. [address], [place], [address], [place]. tel:[phone] Referring Provider: Laron Basurto, [address], [place], [address] . tel:[phone] Est Pt Eval [facility], [address], [place], [place], [id number], [place] tel:[phone] [facility] back pain (chief complaint) Spinal stenosis, lumbar region with neurogenic claudicationType 2 diabetes mellitus w/ diabetic neuropathyRadicul opathy, lumbar regionBody mass index (BMI) 40.0-44.9, adult 3 Strawn Sam. [address], [place], [address], [place]. tel:[phone] Referring Provider: Laron Basurto, [address], [place], [address] . tel:[phone] New Pt Eval 45 Min [facility], [facility], [address], [place], [place], [address], [place] tel:[phone] [facility] back pain (chief complaint) Body mass index (BMI) 40.0-44.9, adultSpinal stenosis, lumbar region with neurogenic claudicationRadic ulopathy, lumbar regionType 2 diabetes mellitus w/ diabetic neuropathy Dec- 3 Foster Sam. [address], [place], [address], [place]. tel:[phone] Referring Provider: Laron Basurto, [address], [place], [address] . tel:[phone] Family History Family Member Type Diagnosis Age At Onset No Information Payers Payer name Insurance type Covered libertarian ID Bernice galicia(s) Medicare Part B AKUA [id number] [employer] BL [id number] Social History Type Description Quantity Date Captured [...] Information Instructions Date Instruction Additional Infor zachary Same plan of care as statement for [...] Spinal stenosis, lumbar region with neurogenic claudication Giving encouragement to exercise Related to Body mass index [BMI] 40.0-44.9, adult -Consider spinal cor d stimulation, literature provided today Related to Type 2 diabetes mellitus w/ diabetic neuropathy -Requested medical r ecords from [facility] ([facility])-Order MRI of the lumbar spine at [facility] [...]
--- OUTSIDE RECORDS SUMMARY | 2024-01-03 10:28 | XMS_ITS | Encounter Summary ---
Author Organization [facility] Address [address] [place] [address] Care Team Providers Care Healthcare Advisory Services Manager Name Role Phone Soham James M.D., Ph.D. Primary Care Provider Reason for Visit * Reason Comments Med Refill Encounter Details Date Type Department Care Team (Late st Contact Info) Description 09/14/2023 Refill Department of Family Medicine, [facility], in [address] [address] Soham James M.D., Ph.D. [address] [place] [phone] Med Refill Social History Tobacco Use Types [...] Total Score: 3 11/22/20 23 3:22 PM COIL WINDER REPAIR documented as of this encounter Care Teams Healthcare Advisory Services Manager Relationship Specialty Start Date End Date Soham James M.D., Ph.D. PCP - General 12/22/16 11/23/23 documented as of this encounter
--- OUTSIDE RECORDS SUMMARY | 2024-01-03 10:28 | XMS_ITS | Clinical Summary ---
Author Organization [place] [facility] Address [address] [place] [address] Care Team Providers Care Souvenir Assembler Name Role Phone Soham James MD Primary Care Provider [phone] Allergies Active Allergy Reactions Criticality Noted Date [...] Comments Blood Pressure 118/67 08/07/2018 9:20 AM FAGOT MAKER Pulse 64 08/07/2018 9:20 AM FAGOT MAKER Temperature 36.6 ??C (97.9 ??F) 08/21/2012 8:20 AM CS T Respiratory Rate 20 08/07/2018 9:30 AM FAGOT MAKER Oxygen Saturation 91% 08/07/2018 9:27 AM FAGOT MAKER Inhaled Oxygen Concentration - - Weight 124.7 kg (275 lb) 08/07/2018 7:52 AM FAGOT MAKER Height 177.8 cm (5' 10) 08/07/2018 7:52 AM FAGOT MAKER Body Mass Index 39.46 08/07/2018 7:52 AM FAGOT MAKER Plan of Treatment Health Maintenance Due Date [...] Diagnosis Comments COLONOSCOPY Routine 08/07/2018 8:13 AM FAGOT MAKER GLUCOSE BY METER Routine 08/21/2012 7:19 AM FAGOT MAKER from Last 3 Months or Most Recently Relevant to Health Maintenance Results * COLONOSCOPY (08/07/2018 8:13 AM FAGOT MAKER) [facility] COLONOSCOPY [facility] Endoscopy Department ___ Patient Name: Shin Best ? Procedure Date: 08/07/2018 8:13 AM ? Date of : 1945 ? Admit Type: Outpatient Age: 73 ? Room: 3 Note Status: Finalized ?Attending MD: Abraham Milner , Total Sedation Time: 41 mins of continuous bedside 1:1 Instrument Name: 325 [id number] AdultColonoscope ___ Procedure: ?Colonoscopy Indications: ?Screening for [...] Procedure Code(s): ? --- Professional --- ? 40859, Colonoscopy, flexible; with removal of tumor(s), polyp(s), or ? other lesion(s) by snare technique Diagnosis Code(s): ? --- Professional --- ? Z12.11, Encounter for screening for malignant neoplasm of colon ? K62.1, Rectal polyp CPT copyright 2017 [employer]. All rights reserved. The codes documented in this report are preliminary and upon hands assembler review may be revised to meet current compliance requirements. Abraham Milner, 08/07/2018 9:10:30 AM I was physically present for the entire viewing portion of the exam. Abraham Milner Number of Addenda: 0 Note Initiated On: 08/07/2018 8:13 AM MRN: ?[id number] Procedure Date: ? 08/07/2018 8:13:49 AM Scope Withdrawal Time: 0 hours 13 minutes 27 seconds Total Procedure Duration: 0 hours 40 minutes 58 seconds Estimated Blood Loss: ? Scope In: 8:20:39 AM Scope Out: 9:01:37 AM RADIOLOGY RESULTS 08/07/2018 8:13 AM FAGOT MAKER Soham James MD PROCEDURES RADIOLOGY RESULTS * Glucose by meter (08/21/2012 7:19 AM FAGOT MAKER) Glucose 79 60 - 99 mg/dL POINT OF CARE TEST, GLUCOSE Comment:Dr/RN Notified 08/21/2012 7:19 AM FAGOT MAKER 08/21/2012 7:25 AM FAGOT MAKER Stacy Ayers MD LAB - BEAKER POCT Performing Organization Address City/[facility] Co de Phone Number POINT OF CARE TEST, GLUCOSE from Last 3 Months or Most Recently Relevant to Health Maintenance Care Teams Souvenir Assembler Relationship Specialty Start Date End Date Soham James MD [facility] [address] [place] [address] PCP - General Family Practice 07/25/12
--- OUTSIDE RECORDS SUMMARY | 2024-01-03 10:28 | XMS_ITS | Referral Summary ---
Author Organization [facility] Address [address] [place] [address] Care Team Providers Care Laser Technician Name Role Phone Shanae Ugarte APRN, C.N.P. Primary Care Provide r Source Comments Patient records contain information from all sites at [facility]. For routine questions regarding patient records, call [phone] during business hours, M-F 8:00 AM - 5:00 PM Central Time. Record requests for emergency care only can be directed to [phone] at any time.[facility] Encounters Date Type Department Care Team Description 01/02/2024 Clinical Communication Department of Family Medicine, [facility], in [address] [phone] Shanae Ugarte APRN, C.N.P. 11/27/2023 Refill Department of Family [facility], [facility], in [address] [phone] Shanae Ugarte APRN, C.N.P. Med Refill 11/06/2023 Clinical Communication Department of Family Medicine, [facility], in [address] [phone] Soham James M.D., Ph.D. [facility] Form ([facility] (PT Outpatient Eval 11/02/23) 10/23/2023 Clinical Communication Department of Family Medicine, [facility], in [address] [phone] Soham James M.D., Ph.D. Form Review ([facility]. diabetic footwear ) 10/18/2023 Clinical Communication Department of Family Medicine, [facility], [address] [phone] Soham James M.D., Ph.D. 10/12/2023 Clinical Communication Department of [facility], [facility], [address] [phone] Soham James M.D., Ph.D. PT Referral 10/11/2023 6:00 PM CDT Office Visit Department of [facility], [facility], [address] [phone] Soham James M.D., Ph.D. 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 Diabetes Mellitus Type 2 With Diabetic Neuropathy (HCC) from Last 3 Months Allergies Active Allergy Reactions Criticality Noted Date Comments Esomeprazole Magnesium Nausea Only 11/12/2012 INCREASED ACID Penicillins Hives (Reselect Reaction) 04/15/2014 Jwpmjdk-Ivv-Fsh Reductase Inhibitors Myalgia 04/15/2014 Medications Medication Sig [...] daily. 90 tablet 3 08/17/2023 Active Basaglar KwEnzo U-100 Insulin 100 unit/mL (3 mL) injectionIndication [...] times a day. 810 capsule 3 10/11/2023 Active DME CPAPIndications:Loading Dock Hand ea Sleep Obstructive DME Order 1 each [...] - MODE RNA (12 YEARS AND OLDER) [id number] 05/12/2023 SARS-COV-2 (COVID-19) - MODERNA(Discontinued) SARS-COV-2 (COVID-19) [...] 177 cm (5' 9.69) 05/31/2023 2:47 PM SIGNAL TOWER OPERATOR Body Mass Index 39.32 05/31/2023 2:47 PM SIGNAL TOWER OPERATOR Plan of Treatment Not on file Medical Devices Implanted Type Area Wardrobe Specialist Device Identifier Shelf Expiration Date Model / Serial / Lot Knee Implant- 0 Implanted:08/14 by Amrik Falcon M.D. (Quantity not on file) Knee Implant Knee Procedures Procedure Name Priority Date/Time Associated Diagnosis Comments HEMOGLOBIN A1C, B Routine 10/11/2023 7:1 2 PM CDT Diabetes Mellitus Type 2 With Diabetic Neuropathy (HCC) EXTI SODIUM, S/P Routine 07/05/2023 9:05 AM SIGNAL TOWER OPERATOR EXTI BASIC METABOLIC PANEL, S/P Routine 07/04/2023 11:49 PM SIGNAL TOWER OPERATOR EXTI THYROID-STIMULATI NG HORMONE-SENSITIVE (S-TSH), S Routine 06/19/2023 5:47 AM SIGNAL TOWER OPERATOR ALBUMIN, RANDOM, U Routine 05/31/2023 2:26 PM SIGNAL TOWER OPERATOR Diabetes Mellitus Type 2 With Diabetic [...] LAB BLOOD ADD-O N Performing Organization Address City/[facility]/[place] [address], [place] [address] * (ABNORMAL) Albumin, Random, Urine (05/31/2023 2:26 PM SIGNAL TOWER OPERATOR) Microalbumin 53.8 mg/L 05/31/2023 2:48 PM SIGNAL TOWER OPERATOR CNFL Creatinine 115 mg/dL 05/31/2023 2:48 PM SIGNAL TOWER OPERATOR CNFL Albumin/Creatinin e Ratio 47(H) <17 mg/g 05/31/2023 2:48 PM SIGNAL TOWER OPERATOR [facility] Urine (Urine, Midstream) 05/31/2023 2:26 PM SIGNAL TOWER OPERATOR 05/31/2023 2:26 PM SIGNAL TOWER OPERATOR Soham James M.D., Ph.D. LAB URINE ORDER [facility] [address] [place] [address], [place] [address] * US Aorta AAA Screening (05/05/2020 10:41 [...] S Nonreactive Nonreactive 10/09/2017 10:[address] [facility] Blood 10/06/2017 2:29 PM CDT 10/06/2017 9:44 PM CDT Narrative [facility] - 10/09/2017 10:35 AM CDT Specimen Information: Specimen ID: [id number] Specimen Type: Blood Specimen Collection Start Date: 10/06/2017 ??2:29 PM Specimen Received Date: 10/06/2017 ??9:44 PM Specimen ID: [id number] Specimen Type: Blood Specimen Collection Start Date: 10/06/2017 ??2:29 PM Specimen Received Date: 10/06/2017 ??9:44 PM Soham James M.D., Ph.D. LAB MICROBIOLOG Y - BLOOD ORDERABLES [facility] [address] [place] [address], [facility] from Last 3 Months or Most Recently Relevant to Health Maintenance Care Teams Laser Technician Relationship Specialty Start Date End Date Shanae Ugarte APRN, C.N.P. [address] [place] [phone] PCP - General 11/24/23
--- OUTSIDE RECORDS SUMMARY | 2024-01-03 10:28 | XMS_ITS ---
Author Organization [facility] Address [address] [place] [address] Care Team Providers Care Impregnator Carbon Products Name Role Phone Unavailable Unavailable Unavailable Surgery Details Not on file Complications Check Surgery Details section. Procedure Estimated Blood Loss Check Surgery Details section. Procedure Findings Check Surgery Details section. Procedure Specimens Taken Check Surgery Details section.
--- OUTSIDE RECORDS SUMMARY | 2024-01-03 10:28 | XMS_ITS | Encounter Summary ---
Author Organization [facility] Address [address] [place] [address] Care Team Providers Care Appraiser Art Name Role Phone Shanae Ugarte APRN, C.N.P. Primary Care Provide r Reason for Visit * Reason Comments Med Refill Encounter Details Date Type Department Care Team (Late st Contact Info) Description 11/27/2023 Refill Department of Family Medicine, [facility], in [address] [phone] Shanae Ugarte APRN, C.N.P. [address] [place] [phone] Med Refill Social History Tobacco Use Types [...] documented as of this encounter Care Teams Appraiser Art Relationship Specialty Start Date End Date Shanae Ugarte APRN, C.N.P. [address] [place] [phone] PCP - General 11/24/23 documented as of this encounter
--- OUTSIDE RECORDS SUMMARY | 2024-01-03 10:28 | XMS_ITS | Encounter Summary ---
Author Organization [facility] Address [address] [place] [address] Care Team Providers Care Wood Heel Back Liner Name Role Phone Soham James M.D., Ph.D. Primary Care Provider Encounter Details Date Type Department Care Team (Late st Contact Info) Description 10/10/2023 Orders Only [facility] PCP [facility] Soham James M.D., Ph.D. [address] [place] [address] Diabetes Mellitus Type 2 With [...] LAB BLOOD ADD-O N Performing Organization Address City/State/[facility] Co de Phone Number [facility] [address] [place] [address], [place] [address] documented in this encounter Visit Diagnoses Diagnosis Diabetes Mellitus Type 2 With Diabetic Neuropathy (HCC) documented in this encounter Additional Health Concerns Assessment Noted Time PHQ-9 Depression Total Score: 3 05/31/20 23 3:22 PM OCCUPATIONAL THERAPY PROFESSOR documented as of this encounter Care Teams Wood Heel Back Liner Relationship Specialty Start Date End Date Soham James M.D., Ph.D. PCP - General 12/22/16 11/23/23 documented as of this encounter
--- OUTSIDE RECORDS SUMMARY | 2024-01-03 10:28 | XMS_ITS | Encounter Summary ---
Author Organization [facility] Address [address] [place] [address] Care Team Providers Care Copyright Expert Name Role Phone Soham James M.D., Ph.D. Primary Care Provider Reason for Referral * Medication Prior Authorization - Closed Specialty Diagnoses / Procedures Referred By Contac t Referred To Contact Diagnoses Diabetes Mellitus Type 2 With Diabetic Neuropathy (HCC) Soham James M.D., Ph.D. [address] [facility] [place] [address] Referral ID Status Reason Start Date Expiration Date Visits Re quested Visits Authorized [id number] Closed 1 1 Encounter Details Date Type Department Care Team (Late st Contact Info) Description 10/18/2023 Clinical Communication Department of Family Medicine, [facility], in [address] [phone] Soham James M.D., Ph.D. [address] [place] [address] Social History Tobacco Use Types [...] documented as of this encounter Care Teams Copyright Expert Relationship Specialty Start Date End Date Soham James M.D., Ph.D. PCP - General 12/22/16 11/23/23 documented as of this encounter
--- OUTSIDE RECORDS SUMMARY | 2024-01-03 10:28 | XMS_ITS | Encounter Summary ---
Author Organization [facility] Address [address] [place] [address] Care Team Providers Care Manager Of Warehouse Name Role Phone Soham James M.D., Ph.D. Primary Care Provider Reason for Referral * Outpatient (Routine) - Authorized Specialty Diagnoses / Procedures Referred By Rj rush Referred To Contact Diagnoses Pain Neck Pain Shoulder Right Soham James M.D., Ph.D. [address] [place] [address] External, Referring Provider Referral ID Status Reason Start Date Expiration Date Visits Requested Visits Authorized [id number] Authorized Patient Preference 10/11/2023 04/11/2025 1 1 Reason for Visit * Reason Comments Chronic Disease Management Follow up had heart attack/stroke. Would like to restart Ozempic * Appointment Request (Routine) - Closed Specialty Diagnoses / Procedures Referred By Rj rush Referred To Contact Family Medicine Referral ID Status Reason Start Date Expiration Date Visits Re quested Visits Authorized [id number] Closed 07/20/2023 07/19/2024 1 1 Encounter Details Date Type Department Care Team (Latest Contact Info) Description 10/11/2023 6:00 PM CDT Office Visit Department of Family Medicine, [facility], in [address] [phone] Soham James M.D., Ph.D. [address] [place] [address] Coronary Artery Disease With Stable [...] Body Mass Index 39.32 05/31/2023 2:47 PM CLERK SPECIALIST documented in this encounter Progress Notes * [...] on his right foot, treating with the [facility] wound clinic (on antibiotics, improving, [...] Mellitus Type 2 With Other Circulatory Complication ([facility]) Pain Neck - External referral ancillary ([facility]) - gabapentin (NEURONTIN) 100 mg capsule; Take 2 capsules (200 mg total) by mouth 3 (three) times a day for 14 days, THEN 3 capsules (300 mg total) 3 (three) times a day. Pain Shoulder Right - External referral ancillary ([facility]) Other orders - semaglutide (OZEMPIC) 2 mg/dose [...] LAB BLOOD ADD-O N Performing Organization Address [facility]/State/ZIP Co de Phone Number [facility] [address] [place] [address], [facility] in [address] [address] documented in this encounter Visit Diagnoses Diagnosis [...] of this encounter Care Teams Manager Of Warehouse Relationship Specialty Start Date End Date Soham James M.D., Ph.D. PCP - General 12/22/16 11/23/23 documented as of this encounter
--- OUTSIDE RECORDS SUMMARY | 2024-01-03 10:28 | XMS_ITS | Encounter Summary ---
Author Organization [facility] Address [address] [place] [address] Care Team Providers Care Handbag Parts Cutter Name Role Phone Shanae Ugarte APRN, C.N.P. Primary Care Provide r Encounter Details Date Type Department Care Team (Late st Contact Info) Description 01/02/2024 Clinical Communication Department of Family Medicine, [facility], in [address] [phone] Shanae Ugarte APRN, C.N.P. [address] [place] [address] Social History Tobacco Use Types Packs/Day Years [...] Noted Time PHQ-9 Depression Total Score: 5 04/03/20 24 9:23 PM CDT documented as of this encounter Care Teams Handbag Parts Cutter Relationship Specialty Start Date End Date Shanae Ugarte APRN, C.N.P. [address] [place] [phone] PCP - General 11/24/23 documented as of this encounter
--- OUTSIDE RECORDS SUMMARY | 2024-01-03 10:28 | XMS_ITS | Encounter Summary ---
Author Organization [facility] Address [address] [place] [address] Care Team Providers Care Retail Business Manager Name Role Phone Soham James M.D., Ph.D. Primary Care Provider Reason for Visit * Reason Comments Med Change Request Encounter Details Date Type Department Care Team (Late st Contact Info) Description 09/15/2023 Refill Department of Family Medicine, [facility], in [address] [phone] Soham James M.D., Ph.D. [address] [place] [phone] Med Change Request Social History Tobacco Use [...] Total Score: 3 11/22/20 23 3:22 PM IT SUPPORT SPECIALIST documented as of this encounter Care Teams Retail Business Manager Relationship Specialty Start Date End Date Soham James M.D., Ph.D. PCP - General 12/22/16 11/23/23 documented as of this encounter
--- OUTSIDE RECORDS SUMMARY | 2024-01-03 10:28 | XMS_ITS | Encounter Summary ---
Author Organization [facility] Address [address] [place] [address] Care Team Providers Care Multiplex Operator Name Role Phone Soham James M.D., Ph.D. Primary Care Provider Reason for Visit * Reason Onset Date Comments Form Review 10/23/2023 [facility] diabetic footwear Encounter Details Date Type Department Care Team (Latest Contact Info) Description 10/23/2023 Clinical Communication Department of Family Medicine, [facility], in [address] [phone] Soham James M.D., Ph.D. [address] [place] [address] Form Review ([facility] diabetic [...] PM CDT Form was emailed to Soham Jaems M.D., Ph.D. for electronic review/signature. OB TECH: [facility] PHONE NUMBER: [phone] INFO REQUESTED: diabetic footwear INSTRUCTIONS: Fax information to [phone] documented in this encounter Plan of Treatment Not on file documented as of this encounter Visit Diagnoses Not on filedocumented in this encounter Additional Health Concerns Assessment Noted Time PHQ-9 Depression Total Score: 5 10/11/19 9:23 PM CDT documented as of this encounter Care Teams Multiplex Operator Relationship Specialty Start Date End Date Soham James M.D., Ph.D. PCP - General 12/22/16 11/23/23 documented as of this encounter
--- OUTSIDE RECORDS SUMMARY | 2024-01-03 10:28 | XMS_ITS | Encounter Summary ---
Author Organization [facility] Address [address] [place] [address] Care Team Providers Care Sales Performance Manager Name Role Phone Soham James M.D., Ph.D. Primary Care Provider Reason for Visit * Reason Onset Date Comments Panda[employer] Form 11/06/2023 [facility] (PT Outpatient Eval 11/02/23 Encounter Details Date Type Department Care Team (Latest Contact Info) Description 11/06/2023 Clinical Communication Department of Family Medicine, [facility], in [address] [phone] Soham James M.D., Ph.D. [address] [place] [address] [employer] Form ([facility] (PT Outpatient Eval 11/02/23) Social History [...] encounter Miscellaneous Notes * Telephone Encounter - Madleyn Maranda Kaye - 11/07/2023 9:14 AM CDT Completed form(s) faxed back to [facility], and sent to [facility] for scanning. * Telephone Encounter - Madelyn Maranda Kaye - 11/06/2023 4:50 PM CDT Form was routed to Soham James M.D., Ph.D. for electronic review/signature. SEWING INSPECTOR: [facility] PHONE NUMBER: [phone] INFO REQUESTED: PT Outpatient Eval 11/02/23 INSTRUCTIONS: Fax information to [phone] documented in this encounter Plan of Treatment Not on file documented as of this encounter Visit Diagnoses Not on filedocumented in this encounter Additional Health Concerns Assessment Noted Time PHQ-9 Depression Total Score: 5 10/11/19 24 9:23 PM CDT documented as of this encounter Care Teams Sales Performance Manager Relationship Specialty Start Date End Date Soham James M.D., Ph.D. PCP - General 12/22/16 11/23/23 documented as of this encounter
--- OUTSIDE RECORDS SUMMARY | 2024-01-03 10:28 | XMS_ITS | Encounter Summary ---
Author Organization [facility] Address [address] [place] [address] Care Team Providers Care Ice Skating Teacher Name Role Phone Soham James MD Primary Care Provider [phone] Encounter Details Date Type Department Care Team (Late st Contact Info) Description 2023 Telephone [facility] Podiatry [address] [facility] [address] [place] [address] Piper Castanon, DPMikki, Podiatry/Foot and Ankle Surgery [address] [place], [place] [phone] Social History Tobacco Use Types Packs/Day Years [...] referral we received from Dr. Soham James ([facility]) via fax this morning. Scheduled patient to see Dr. Castanon on June 20 in [place]. Patient requested the building address be sent to him via mail, so a letter was sent out. Patient was appreciative of the call. Dionte Rodrigez, Visit Dandy Tender TURBINE ASSEMBLER documented in this encounter Plan of Treatment Not on file documented as of this encounter Visit Diagnoses Not on filedocumented in this encounter Care Teams Ice Skating Teacher Relationship Specialty Start Date End Date Soham James MD [facility] [address] [place] [address] PCP - General Family Practice 07/25/12 documented as of this encounter
--- OUTSIDE RECORDS SUMMARY | 2024-01-03 10:28 | XMS_ITS | Encounter Summary ---
Author Organization [facility] Address [address] [place] [address] Care Team Providers Care Crowning Hammer Operator Name Role Phone Soham James M.D., Ph.D. Primary Care Provider Reason for Visit * Reason Onset Date Comments PT Referral 10/12/2023 Encounter Details Date Type Department Care Team (Late st Contact Info) Description 10/12/2023 Clinical Communication Department of Family Medicine, [facility], in [address] [phone] Soham James M.D., Ph.D. [address] [place] [address] PT Referral Social History Tobacco [...] documented as of this encounter Care Teams Crowning Hammer Operator Relationship Specialty Start Date End Date Soham James M.D., Ph.D. PCP - General 12/22/16 11/23/23 documented as of this encounter
--- OUTSIDE RECORDS SUMMARY | 2024-01-03 10:28 | XMS_ITS | Encounter Summary ---
Author Organization [facility] Address [address] [place] [address] Care Team Providers Care Netezza Architect Name Role Phone Soham James M.D., Ph.D. Primary Care Provider Reason for Visit * Reason Comments Med Change Request Encounter Details Date Type Department Care Team (Late st Contact Info) Description 08/30/2023 Refill Department of Family Medicine, [facility], in [address] [phone] Soham James M.D., Ph.D. [address] [place] [phone] Med Change Request Social History Tobacco Use [...] Total Score: 3 05/31/20 23 3:22 PM TAP PULLER documented as of this encounter Care Teams Netezza Architect Relationship Specialty Start Date End Date Soham James M.D., Ph.D. PCP - General 12/22/16 11/23/23 documented as of this encounter
--- OUTSIDE RECORDS SUMMARY | 2024-01-03 10:28 | XMS_ITS | Referral Summary ---
Author Organization [facility] Address [address] [place] [address] Care Team Providers Care Environmental Health Safety Manager Name Role Phone Soham James MD Primary Care Provider [phone] Allergies Active Allergy Reactions Criticality Noted Date [...] Comments Blood Pressure 118/67 08/07/2018 9:20 AM GRINDER CHIPPER Pulse 64 08/07/2018 9:20 AM GRINDER CHIPPER Temperature 36.6 ??C (97.9 ??F) 08/21/2012 8:20 AM CS T Respiratory Rate 20 08/07/2018 9:30 AM GRINDER CHIPPER Oxygen Saturation 91% 08/07/2018 9:27 AM GRINDER CHIPPER Inhaled Oxygen Concentration - - Weight 124.7 kg (275 lb) 08/07/2018 7:52 AM GRINDER CHIPPER Height 177.8 cm (5' 10) 08/07/2018 7:52 AM GRINDER CHIPPER Body Mass Index 39.46 08/07/2018 7:52 AM GRINDER CHIPPER Plan of Treatment Not on file Procedures Procedure Name Priority Date/Time Associated Diagnosis Comments COLONOSCOPY Routine 08/07/2018 8:13 AM GRINDER CHIPPER GLUCOSE BY METER Routine 08/21/2012 7:19 AM GRINDER CHIPPER from Last 3 Months or Most Recently Relevant to Health Maintenance Results * COLONOSCOPY (08/07/2018 8:13 AM GRINDER CHIPPER) [facility] COLONOSCOPY [facility] Endoscopy Department ___ Patient Name: Shin Best ? Procedure Date: 08/07/2018 8:13 AM ? Date of : 1945 ? Admit Type: Outpatient Age: 73 ? Room: 3 Note Status: Finalized ?Attending MD: Abraham Milner , Total Sedation Time: 41 mins of continuous bedside 1:1 Instrument Name: 325 [id number] AdultColonoscope ___ Procedure: ?Colonoscopy Indications: ?Screening for [...] Procedure Code(s): ? --- Professional --- ? 27086, Colonoscopy, flexible; with removal of tumor(s), polyp(s), or ? other lesion(s) by snare technique Diagnosis Code(s): ? --- Professional --- ? Z12.11, Encounter for screening for malignant neoplasm of colon ? K62.1, Rectal polyp CPT copyright 2017 [employer]. All rights reserved. The codes documented in this report are preliminary and upon development administrator review may be revised to meet current compliance requirements. Abraham Milner, 08/07/2018 9:10:30 AM I was physically present for the entire viewing portion of the exam. Abraham Milner Number of Addenda: 0 Note Initiated On: 08/07/2018 8:13 AM MRN: ?[id number] Procedure Date: ? 08/07/2018 8:13:49 AM Scope Withdrawal Time: 0 hours 13 minutes 27 seconds Total Procedure Duration: 0 hours 40 minutes 58 seconds Estimated Blood Loss: ? Scope In: 8:20:39 AM Scope Out: 9:01:37 AM RADIOLOGY RESULTS 08/07/2018 8:13 AM GRINDER CHIPPER Soham James MD PROCEDURES RADIOLOGY RESULTS * Glucose by meter (08/21/2012 7:19 AM GRINDER CHIPPER) Glucose 79 60 - 99 mg/dL POINT OF CARE TEST, GLUCOSE Comment:Dr/RN Notified 08/21/2012 7:19 AM GRINDER CHIPPER 08/21/2012 7:25 AM GRINDER CHIPPER Stacy Ayers MD [facility] POCT POINT OF CARE TEST, GLUCOSE from Last 3 Months or Most Recently Relevant to Health Maintenance Care Teams Environmental Health Safety Manager Relationship Specialty Start Date End Date Soham James MD [facility] [address] [place] [address] PCP - General Family Practice 07/25/12
== END 2024-01-03 10:26 | disposition home or self-care (01) ==
LOC: WOUND 10:25
PROVIDERS: PCP Family Medicine; Visit Provider Surgery
DX: E11.621 Type 2 diabetes mellitus with foot ulcer (principal); I87.2 Venous insufficiency (chronic) (peripheral); L97.512 Non-pressure chronic ulcer of other part of right foot with fat layer exposed; A69.20 Lyme disease, unspecified; Z79.4 Long term (current) use of insulin; Z79.84 Long term (current) use of oral hypoglycemic drugs
CPT/HCPCS: 97597; G0463

== ENCOUNTER 2024-01-10 10:22 | Outpatient (CLI) | payer MEDICARE, BC, SELFPAY | END 2024-01-10 10:23 | disposition home or self-care (01) | LOC: WOUND 10:22 | PROVIDERS: PCP Family Medicine; Visit Provider Surgery | DX: E11.621 Type 2 diabetes mellitus with foot ulcer (principal); I87.2 Venous insufficiency (chronic) (peripheral); I89.0 Lymphedema, not elsewhere classified; L97.512 Non-pressure chronic ulcer of other part of right foot with fat layer exposed; Z79.4 Long term (current) use of insulin | CPT/HCPCS: 97597 ==

== ENCOUNTER 2024-01-24 10:25 | Outpatient (CLI) | payer MEDICARE, BC, SELFPAY | END 2024-01-24 10:26 | disposition home or self-care (01) | LOC: WOUND 10:26 | PROVIDERS: PCP Family Medicine; Visit Provider Surgery | DX: E11.621 Type 2 diabetes mellitus with foot ulcer (principal); L97.512 Non-pressure chronic ulcer of other part of right foot with fat layer exposed; Z79.4 Long term (current) use of insulin; Z79.84 Long term (current) use of oral hypoglycemic drugs | CPT/HCPCS: 97597 ==

== ENCOUNTER 2024-01-31 09:22 | Outpatient (CLI) | payer MEDICARE, BC, SELFPAY | END 2024-01-31 09:23 | disposition home or self-care (01) | LOC: WOUND 09:22 | PROVIDERS: PCP Family Medicine; Visit Provider Surgery | DX: E11.621 Type 2 diabetes mellitus with foot ulcer (principal); I87.2 Venous insufficiency (chronic) (peripheral); L97.512 Non-pressure chronic ulcer of other part of right foot with fat layer exposed; I89.0 Lymphedema, not elsewhere classified; Z79.4 Long term (current) use of insulin; Z79.84 Long term (current) use of oral hypoglycemic drugs | CPT/HCPCS: 87086; 87186; G0463 ==

== ENCOUNTER 2024-02-07 10:21 | Outpatient (CLI) | payer MEDICARE, BC, SELFPAY ==
--- OUTSIDE RECORDS SUMMARY | 2024-02-07 10:24 | XMS_ITS | Continuity of Care Document ---
Author Organization [facility] Address [address] [place] [address] Phone Care Team Providers Care Transport Aide Name Role Phone Roshni Rousseau DPT Unavailable [...] Providers Copied on Encounter [facility], [address], [place], [place], [id number], [place] tel:[phone] [place] [facility] No Information 3 Soham Barakat. [address], [address], [place], [address], [place]. tel:[phone] [facility], [address], [place], [place], [id number], [place] tel:[phone] [facility] Spinal stenosis, lumbar region with neurogenic claudicationRadic ulopathy, lumbar regionType 2 diabetes mellitus with diabetic neuropathy, unsp 3 Soham Barakat. [address], [address], [place], [address], [place]. tel:[phone] Referring Provider: Laron Basurto, [address], [place], [address] . tel:[phone] Psychiatric Diagnostic Evaluation Telephone Only [facility], [address], [place], [place], [id number], [place] tel:[phone] [facility] Pain disorder with related psychological factors 3 Selwyn Pabon. [address], [place], [address], [place]. tel:[phone] Referring Provider: Laron Basurto, [address], [place], [address] . tel:[phone] [facility], [address], [place], [place], [id number], [place] tel:[phone] [facility] Spinal stenosis, lumbar region with neurogenic claudicationRadic ulopathy, lumbar region 3 Foster Sam. [address], [place], [address], [place]. tel:[phone] Referring Provider: Laron Basurto, [address], [place], [address] . tel:[phone] Est Pt Eval [facility], [address], [place], [place], [id number], [place] tel:[phone] [facility] back pain (chief complaint) Spinal stenosis, lumbar region with neurogenic claudicationType 2 diabetes mellitus w/ diabetic neuropathyRadicul opathy, lumbar regionBody mass index (BMI) 40.0-44.9, adult 3 Rowley Sam. [address], [place], [address], [place]. tel:[phone] Referring Provider: Laron Basurto, [address], [place], [address] . tel:[phone] New Pt Eval 45 Min [facility], [facility], [address], [place], [place], [id number], [place] tel:[phone] [facility] back pain (chief complaint) Body mass index (BMI) 40.0-44.9, adultSpinal stenosis, lumbar region with neurogenic claudicationRadic ulopathy, lumbar regionType 2 diabetes mellitus w/ diabetic neuropathy Dec- 3 Foster Sam. [address], [place], [address], [place]. tel:[phone] Referring Provider: Laron Basurto, [address], [place], [address] . tel:[phone] Family History Family Member Type Diagnosis Age At Onset No Information Payers Payer name Insurance type Covered alliance party ID Bernice galicia(s) Medicare Part B AKUA [id number] [employer] [id number] Social History Type Description Quantity Date Captured [...] Instructions Date Instruction Additional Infor zachary - Prior authorizatio n in progress for [...] lumbar region -Requested medical r ecords from [facility]Order MRI of the lumbar spine at [facility] [...]
--- OUTSIDE RECORDS SUMMARY | 2024-02-07 10:24 | XMS_ITS | Clinical Summary ---
Author Organization [facility] Address [place], [place] [address] Care Team Providers Care Security Administrator Name Role Phone Hao Drew MD Unavailable [phone] Desiree Black MD Primary Care Provider + Allergies Active Allergy Reactions Criticality Noted Date Comments Esomeprazole Magnesium Nausea Only 11/12/2012 INCREASED ACID Penicillins Hives 04/15/2014 Tubiqar-Ehj-Uyx Reductase Inhibitors Nausea Only,Myalgia 04/15/2014 Medications Medication Sig Dispensed Refills Start Date End Date Status omeprazole (PRILOSEC) 20 mg Delayed-Release capsule Take 20 mg by mouth once daily before a meal. 8 Active CPAPIndications:Sagar tral sleep apnea,TING (obstructive sleep apnea) CPAP machine for home use at pressure: 12 cm, full face mask x1/3month with a full face cushion x1/mo; Length of Need: 99 months; Frequency of use: Daily 1 Device 10 1 Active acetaminophen (TYLENOL) 325 mg tablet Take 650 mg by mouth every 4 hours if needed. Max acetaminophen dose: 4000mg in 24 hrs. Active amLODIPine (NORVASC) 2.5 mg tabletIndications:H TN (hypertension) Take 1 Tablet (2.5 mg) by mouth once daily. 30 Tablet 3 Active camphor-menthol, 0.5%-0.5%, (SARNA ANTI-ITCH) lotionIndications:P ruritus Apply topically to affected area(s) three times daily. 3 Active diclofenac topical (VOLTAREN) 1 % gelIndications:Bila teral thumb pain Apply 2 g topically to affected area(s) four times daily. 3 Active DULoxetine (CYMBALTA) 60 mg Delayed-release capsuleIndications: Pain Take 1 Capsule (60 mg) by mouth once daily. 30 Capsule 3 Active finasteride (PROSCAR) 5 mg tabletIndications:B enign prostatic hyperplasia, unspecified whether lower urinary tract symptoms present Take 1 Tablet (5 mg) by mouth every morning. 30 Tablet 3 Active folic acid 1 mg tabletIndications:F olate deficiency Take 1 Tablet (1 mg) by mouth once daily. 30 Tablet 3 Active gabapentin (NEURONTIN) 100 mg capsuleIndications: Pain Take 1 Capsule (100 mg) by mouth three times daily. 90 Capsule 3 Active levothyroxine (LevoxyL) 100 mcg tabletIndications:A cquired hypothyroidism Take 1 Tablet (100 mcg) by mouth before breakfast. 30 Tablet 3 Active tamsulosin (FLOMAX) 0.4 mg capsuleIndications: Benign prostatic hyperplasia, unspecified whether lower urinary tract symptoms present Take 1 Capsule (0.4 mg) by mouth once daily after a meal. 30 Capsule 3 Active thiamine (VITAMIN B1) 100 mg tabletIndications:A lcohol abuse Take 1 Tablet (100 mg) by mouth once daily. 30 Tablet 3 Active Basaglar KwikPen U-100 Insulin 100 unit/mL (3 mL) penIndications:Type 2 diabetes mellitus with diabetic neuropathy, with long-term current use of insulin (HC) Inject 55 units subcutaneous two times daily. Product desired: BASAGLAR KWIKPEN 3 Active insulin aspart, U-100, (NovoLOG Flexpen U-100 Insulin) 100 unit/mL (3 mL) penIndications:Type 2 diabetes mellitus with diabetic neuropathy, with long-term current use of insulin (HC) Inject 16 units subcutaneous three times daily before meals. 3 Active CaneIndications:Acu te CVA (cerebrovascular accident) (HC) Single Point Cane for home use. For 99 weeks. 1 Each 3 Active rosuvastatin (CRESTOR) 20 mg tabletIndications:S T elevation myocardial infarction involving left anterior descending (LAD) coronary artery (HC) Take 1 Tablet (20 mg) by mouth at bedtime. 90 Tablet 3 4 Active nitroglycerin (NITROSTAT) 0.4 mg sublingual tabletIndications:I schemic chest pain (HC) Place 1 Tablet (0.4 mg) under the tongue every 5 minutes if needed for Chest Pain (For chest pain x 3 doses.). 25 Tablet 3 4 Active Ozempic 0.25 mg or 0.5 mg (2 mg/3 mL) pen Inject 0.25 mg subcutaneous once weekly. Inject 0.25 mg subcutaneous once weekly for 2 weeks, then go up to 0.5 mg thereafter. 3 Active carvediloL (COREG) 6.25 mg tabletIndications:H TN (hypertension) Take 1 Tablet (6.25 mg) by mouth two times daily with meals. 180 Tablet 3 4 Active clopidogreL (PLAVIX) 75 mg tabletIndications:A SCVD (arteriosclerotic cardiovascular disease) Take 1 Tablet (75 mg) by mouth once daily. 90 Tablet 3 4 Active spironolactone (ALDACTONE) 25 mg tabletIndications:C hronic systolic heart failure (HC),Stage 3b chronic kidney disease (CKD) (HC) Take 1 Tablet (25 mg) by mouth every morning. 90 Tablet 3 4 Active rivaroxaban (Xarelto) 20 mg tabletIndications:P aroxysmal atrial fibrillation (HC) Take 1 Tablet (20 mg) by mouth once daily with evening meal. 90 Tablet 3 4 Active metFORMIN (GLUCOPHAGE) 500 mg tablet Take 2 Tablets by mouth two times daily. Active furosemide (LASIX) 40 mg tabletIndications:A KI (acute kidney injury) (HC),Chronic systolic heart failure (HC) Take 1 Tablet (40 mg) by mouth once daily in the morning. 90 Tablet 3 4 Active potassium chloride (KLOR-CON M10) 10 mEq extended-release tablet (part/cryst)Indicat ions:Chronic systolic heart failure (HC) Take 2 Tablets (20 mEq) by mouth once daily with a meal. 180 Tablet 3 4 Active furosemide (LASIX) 40 mg tabletIndications:A KI (acute kidney injury) (HC),Chronic systolic heart failure (HC) Take 1 Tablet (40 mg) by mouth two times daily. 180 Tablet 3 4 02/06/20 24 Discontinu ed(Reorder (E-cancel not sent)) potassium chloride (KLOR-CON M10) 10 mEq extended-release tablet (part/cryst)Indicat ions:Chronic systolic heart failure (HC) Take 2 Tablets (20 mEq) by mouth two times daily with meals. 360 Tablet 3 4 02/06/20 24 Discontinu ed(Reorder (E-cancel not sent)) Active Problems Problem Noted Date Diagnosed Date [...] 05/05/2015 Hyperlipidemia 05/05/2015 CAD (coronary artery disease), king salmon coronary a rtery 10/30/2014 Systolic murmur 09/29/2014 [...] Encounters Date Type Department Care Team Description 02/05/2024 4:40 PM CDT Orders Only [facility] [address] [place] [address] Lab, Appv Lab 02/05/2024 4:00 PM CDT Office Visit [facility] [address] [place] [address] Hao Drew MD Concerns (Andrew denies chest pain, shortness of breath /Patient states he has been having some dizziness ) 02/05/2024 Travel 12/27/2023 Patient Outreach [facility] [address] [place] [address] [facility] Care Coordination [...] Cigars Smokeless Tobacco: Never Tobacco Cessation:Counseling Given: Not Answered Alcohol Use Standard Drinks/Week Comments Not Currently 0 (1 standard drink = 0.6 oz pur e alcohol) QUIT June [id number] Social Connections Answer Date Recorded Frequency of [...] Sign Reading Time Taken Comments Blood Pressure 124/74 02/05/2024 4:04 PM CDT Pulse 72 02/05/2024 4:04 PM CDT Temperature 36.7 ??C (98.1 ??F) 08/17/2023 1 0:43 AM SUPPORT SERVICES SPECIALIST Respiratory Rate 16 02/05/2024 4:04 PM CDT Oxygen Saturation 97% 02/05/2024 4:04 PM CDT Inhaled Oxygen Concentration - - Weight 114.6 kg (252 lb 9.6 oz) 02/05/2024 4:04 PM CDT Height 180.3 cm (5' 11) 02/05/2024 4:04 PM CDT Body Mass Index 35.23 02/05/2024 4:04 PM CDT Plan of Treatment Health Maintenance Due Date [...] wt on same day) for age 18+ 02/04/2025 02/05/2024, 07/31/2023, 11/18/2021, Additional history exists Tdap Completed 02/23/2010 Pneumococcal series for age 65+ Completed , 08/18/2008 Medical Devices Implanted Type Area Ovens Supervisor Device Identifier Shelf Expiration Date Model / Serial / Lot Cmnt Bone Simplex Hv Gentamicin - [id number] Implanted:Qty: 2 on 04/28/2014 by Amrik Falcon MD at [facility] Left: Knee [employer] 11/06/2014 6195-1-001 # / / [id number] Patella [id number] Triathlon Asymmetric X3 - [id number] Implanted:Qty: 1 on 04/28/2014 by Amrik Falcon MD at [facility] Left: Knee [employer] 02/06/2019 5551-G-350 # / / [id number] Fem Lt Sz7 Triathlon Post Stbznon Pors - [id number] Implanted:Qty: 1 on 04/28/2014 by Amrik Falcon MD at [facility] Left: Knee [employer] 02/06/2018 5515-F-701 # / / [id number] Baseplate Tib Sz6 Triathlon Pe - [id number] Implanted:Qty: 1 on 04/28/2014 by Amrik Falcon MD at [facility] Left: Knee [employer] 12/07/2018 5521-B-600 # / / [id number] Insert Knee Sz6 11mm Triathlonpost Stbz X3 - [id number] Implanted:Qty: 1 on 04/28/2014 by Amrik Falcon MD at [facility] Left: Knee [employer] 02/06/2019 5532-G-611 # / / [id number] Triathlon X3 Asymmetric Patella [id number] - [id number] Implanted:Qty: 1 on 08/14/2019 by Amrik Falcon MD at [facility] Right: Knee [employer] 02/19/2024 5551-G-381 -E / / [id number] Triathlon X3 Tibial Bearing Insert Cs Valery 5 Typ Cs Thkns 11mm - [id number] Implanted:Qty: 1 on 08/14/2019 by Amrik Falcon MD at [facility] Right: Knee [employer] 03/24/2024 5531-G-511 -E / / [id number] Cmnt Bone Simplex Hv - [id number] Implanted:Qty: 1 on 08/14/2019 by Amrik Falcon MD at [facility] Right: Knee [employer] 12/07/2020 6194-1-001 # / / [id number] Cmnt Bone Simplex Hv Gentamicin - [id number] Implanted:Qty: 1 on 08/14/2019 by Amrik Falcon MD at [facility] Right: Knee [employer] 06/08/2020 6195-1-001 # / / [id number] Fem Rt Sz6 Triathlon Cruc Ret Co Cr - [id number] Implanted:Qty: 1 on 08/14/2019 by Amrik Falcon MD at [facility] Right: Knee [employer] 01/11/2024 5510-F-602 # / / [id number] Baseplate Tib Sz5 Triathlon Pe - [id number] Implanted:Qty: 1 on 08/14/2019 by Amrik Falcon MD at [facility] Right: Knee [employer] 04/17/2024 5521-B-500 # / / [id number] Procedures Procedure Name Priority Date/Time Associated Diagnosis Comments BASIC METABOLIC PANEL Routine 02/05/2024 4:41 PM CDT Stage 3 chronic kidney disease, unspecified whether stage 3a or 3b CKD (HC) from Last 3 Months Results * (ABNORMAL) BASIC METABOLIC PANEL (02/05/2024 4:41 PM CDT) SODIUM 139 136 - 145 mmol/L 02/06/2024 9:25 AM CDT [facility] POTASSIUM 4.3 3.5 - 5.1 mmol/L 02/06/2024 9:25 AM CDT [facility] CHLORIDE 99 98 - 107 mmol/L 02/06/2024 9:25 AM CDT [facility] CO2,TOTAL 27 22 - 29 mmol/L 02/06/2024 9:25 AM CDT [facility] ANION GAP 13 5 - 18 02/06/2024 9:25 AM CDT [facility] GLUCOSE 156(H) 70 - 99 mg/dL 02/06/2024 9:25 AM CDT [facility] CALCIUM 10.1 8.8 - 10.2 mg/dL 02/06/2024 9:25 AM CDT [facility] BUN 36(H) 8 - 23 mg/dL 02/06/2024 9:25 AM CDT [facility] CREATININE 2.09(H) 0.70 - 1.20 mg/dL 02/06/2024 9:25 AM CDT [facility] BUN/CREAT RATIO 17 10 - 20 9:25 AM CDT [facility] eGFR 32(L) >90 mL/min/1.7 3m2 02/06/2024 9:25 AM CDT [facility] Comment:As of 2021, eG FR is calculated by the CKD-EPI creatinine equation without race adjustment. ??eGFR can be influenced by muscle mass, exercise, and diet. ??The reported eGFR is an estimation only and is only applicable if the renal function is stable. Blood BLOOD SPECIMEN / Unknown Venipuncture / Unknown 02/05/2024 4:41 PM CDT 02/05/2024 4:41 PM CDT Hao Drew MD [facility] [address] [place] [address], [place] from Last 3 Months Advance Directives * [...] 11:50 PM 08/09/2018 3:08 PM Care Teams Security Administrator Relationship Specialty Start Date End Date Desiree Black MD [address] [place] [address] PCP - General Family Practice 02/05/24 Hao Drew MD [address] [place] [address] Cardiology Cardiovascular Disease 12/30/19
--- OUTSIDE RECORDS SUMMARY | 2024-02-07 10:24 | XMS_ITS | Clinical Summary ---
Author Organization [facility] Address [address] [place] [address] Care Team Providers Care Unit Secy Name Role Phone Shanae Ugarte APRN, C.N.P. Primary Care Provide r Source Comments Patient records contain information from all sites at [facility]. For routine questions regarding patient records, call [phone] during business hours, M-F 8:00 AM - 5:00 PM Central Time. 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 Obstructive DME Order 1 each [...] Type 2 With Diabetic Neuropath y 05/23/2016 Overview (11/29/2016): DM2 Neuropathy Uncontrolled Dysfunction Erectile 04/12/2016 Hypothyroidism 05/05/2015 Hyperlipidemia 05/05/2015 Coronary Artery Disease With Stable Angina 10/30 Benign Prostatic Hyperplasia Without Obstruction 04/28/2014 Hypertensive Heart And Chron ic Kidney Disease Without Heart Failure With Stage 1 To 4 Chronic Kidney Disease Or Unspecified Chronic Kidney Disease 04/28/2014 Morbid Obesity Body Mass Ind ex >= 35 with Comorbid Condition 04/28/2014 Resolved Problems Problem Noted Date Diagnosed Date Resolved Date Morbid Obesity Body Mass Ind ex 40.0-44.9 Adult 07/30/2019 07/30/2019 ST Elevation Myocardial Infa rction Involving Left Anterior Descending Coronary Artery 08/08/2018 07/30/2019 Diabetes Mellitus Type 2 Cir culatory Disease Uncontrolled 05/23/2016 10/08/2017 Overview (11/29/2016): DM2 Circulatory Disease Uncontrolled Hypertension Essential Primary 05/05/2015 07/30/2019 Dyslipidemia 04/28/2014 07/21/2019 Primary Osteoarthritis Knee Right 04/28/2014 10/25/2021 Encounters Date Type Department Care Team Description 01/16/2024 Orders Only [facility] MNT Shanae Ugarte, PIT SLAGMAN, C.N.P. 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) 01/02/2024 Clinical Communication Department of Family Medicine, [facility], in [address] [address] Shanae Ugarte APRN, C.N.P. 11/27/2023 Refill Department of Family Medicine, [facility], in [address] [address] Shanae Ugarte APRN, C.N.P. Med Refill from Last 3 Months Immunizations Name Administration Dates Next Due H1N1 All Forms 08/10/2009 Influenza Split Preservative Free ID 05/15/2012 Influenza TIV (IM) 08/25/2006 Influenza high dose QV(65 years or older) (PF) 1 ,04/20/2020 Influenza, Quadrivalent, Adjuvanted, Preservativ e Free 05/12/2023 Influenza, Seasonal, Injectable 08/25/2006 PCV13 08/18/2008 PPSV23 12/04/2018 SARS-COV-2 (COVID-19) - MODE RNA (12 YEARS AND OLDER) [id number] 05/12/2023 SARS-COV-2 (COVID-19) - MODERNA(Discontinued) SARS-COV-2 (COVID-19) [...] 177 cm (5' 9.69) 05/31/2023 2:47 PM COMPRESSED GAS EQUIPMENT MECHANIC Body Mass Index 39.32 05/31/2023 2:47 PM COMPRESSED GAS EQUIPMENT MECHANIC Plan of Treatment Health Maintenance Due Date Last Done Comments Dilated Eye Exam 1945 Zoster Vaccines (1 of 2) 1997 Hepatitis B Vaccines (1 of 3 - Risk 3-dose series) 2007 DTaP,Tdap,and Td Vaccines (2 - Td or Tdap) 02/24/2020 02/23/2010 COVID-19 Vaccine (2022-2 4 season) 2023 05/12/2023, 05/09/2022, 01/30/2022, Additional history exists Hemoglobin A1C 01/10/2024 10/11/2023, 05/11, 05/09/2022, Additional history exists Depression Monitoring (PHQ-9) 02/10/2024 10/11/2023 Influenza Vaccine (#1) 2024 3, 05/12/2023, 05/09/2022, Additional history exists Urine Albumin 05/31/2024 05/31/2023, 10/08, 09/15/2020, Additional [...] Aortic Aneurysm (A AA) Screen Discontinued 05/05/2020 Fall Risk Screen (Annual) Completed 07/12/2023 Visit: Chronic Disease, age 18+ Discontinued 4, 07/12/2023 CT Colonography Discontinued Cologuard Discontinued FIT Discontinued Medical Devices Implanted Type Area Fine Patcher Device Identifier Shelf Expiration Date Model / Serial / Lot Knee Implant- 0 Implanted:08/14 by Amrik Falcon M.D. (Quantity not on file) Knee Implant Knee Procedures Procedure Name Priority Date/Time Associated Diagnosis Comments HEMOGLOBIN A1C, B Routine 10/11/2023 7:1 2 PM CDT Diabetes Mellitus Type 2 With Diabetic Neuropathy (HCC) ALBUMIN, RANDOM, U Routine 05/31/2023 2:26 PM COMPRESSED GAS EQUIPMENT MECHANIC Diabetes Mellitus Type 2 With Diabetic Neuropathy Hyperglycemic (HCC) BASIC METABOLIC PANEL, S/P Routine 05/31/2023 2:22 PM COMPRESSED GAS EQUIPMENT MECHANIC Monitoring For Therapeutic Drug Therapy THYROID-STIMULATI NG HORMONE-SENSITIVE (S-TSH) Routine 10/25/2021 10:43 AM CDT Hypothyroidism US AORTA AAA SCREENING RAD - Routine [...] LAB BLOOD ADD-O N Performing Organization Address [facility]/State/[facility] Co de Phone Number [facility] [address] [place] [address], [facility] in [place] [phone] * (ABNORMAL) Albumin, Random, Urine (05/31/2023 2:26 PM COMPRESSED GAS EQUIPMENT MECHANIC) Microalbumin 53.8 mg/L 05/31/2023 2:48 PM COMPRESSED GAS EQUIPMENT MECHANIC CNFL Creatinine 115 mg/dL 05/31/2023 2:48 PM COMPRESSED GAS EQUIPMENT MECHANIC CNFL Albumin/Creatinin e Ratio 47(H) <17 mg/g 05/31/2023 2:48 PM COMPRESSED GAS EQUIPMENT MECHANIC CNFL Urine (Urine, Midstream) 05/31/2023 2:26 PM COMPRESSED GAS EQUIPMENT MECHANIC 05/31/2023 2:26 PM COMPRESSED GAS EQUIPMENT MECHANIC Soham James M.D., Ph.D. LAB URINE ORDER [place] [address] [address], [facility] CNFL [facility] in [address] [address] * (ABNORMAL) Basic Metabolic Panel (05/31/2023 2:22 PM COMPRESSED GAS EQUIPMENT MECHANIC) Potassium, P 4.2 3.6 - 5.2 mmol/L 05/31/2023 2:47 PM COMPRESSED GAS EQUIPMENT MECHANIC CNFL Sodium, P 139 135 - 145 mmol/L 05/31/2023 2:47 PM COMPRESSED GAS EQUIPMENT MECHANIC CNFL Chloride, P 102 98 - 107 mmol/L 05/31/2023 2:47 PM COMPRESSED GAS EQUIPMENT MECHANIC CNFL Bicarbonate, P 26 22 - 29 mmol/L 05/31/2023 2:47 PM COMPRESSED GAS EQUIPMENT MECHANIC CNFL Anion Gap, P 11 7 - 15 05/31/2023 2:47 PM COMPRESSED GAS EQUIPMENT MECHANIC CNFL BUN (Blood Urea Nitrogen), P 26(H) 8 - 24 mg/dL 05/31/2023 2:47 PM COMPRESSED GAS EQUIPMENT MECHANIC CNFL Creatinine 1.62(H) 0.74 - 1.35 mg/dL 05/31/2023 2:47 PM COMPRESSED GAS EQUIPMENT MECHANIC CNFL Estimated GFR (eGFR) 44(L) >=60 mL/min/BSA 05/31/2023 2:47 PM COMPRESSED GAS EQUIPMENT MECHANIC CNFL Comment: Estimated GFR calculated using the 2020 CKD_EPI creatinine equation. Calcium, Total, P 9.1 8.8 - 10.2 mg/dL 05/31/2023 2:47 PM COMPRESSED GAS EQUIPMENT MECHANIC CNFL Glucose, P 293(H) 70 - 140 mg/dL 05/31/2023 2:47 PM COMPRESSED GAS EQUIPMENT MECHANIC CNFL Blood (Blood, Venous) 05/31/2023 2:22 PM COMPRESSED GAS EQUIPMENT MECHANIC 05/31/2023 2:23 PM COMPRESSED GAS EQUIPMENT MECHANIC Soham James M.D., Ph.D. LAB BLOOD ADD-O N [facility] [address] [place] [address], [facility] CNFL [facility] in [address] [address] * S-TSH (Thyroid-Stimulating Hormone - Sensitive) (10/25/2021 10:43 AM CDT) TSH, Sensitive 1.8 0.3 - 4.2 mIU/L 10/25/2021 11:15 AM CDT CNFL Blood (Blood, Venous) 10/25/2021 10:43 AM CDT 10/25/2021 10:47 AM CDT Soham James M.D., Ph.D. LAB BLOOD ADD-O N [facility] [address] [place] [address], [facility] in [address] [address] * US Aorta AAA Screening (05/05/2020 10:41 [...] negative for aneurysm. Soham James M.D., Ph.D. [facility] US PROCEDUR ES * HCV AB Scrn w/Reflex to HCV PCR, S (10/06/2017 2:29 PM CDT) HCV Ab Screen, S Nonreactive Nonreactive 10/09/2017 10:35 AM CDT [facility] Blood 10/06/2017 2:29 PM CDT 10/06/2017 9:44 PM CDT Narrative [facility] - 10/09/2017 10:35 AM CDT Specimen Information: Specimen ID: [id number] Specimen Type: Blood Specimen Collection Start Date: 10/06/2017 ??2:29 PM Specimen Received Date: 10/06/2017 ??9:44 PM Specimen ID: [id number] Specimen Type: Blood Specimen Collection Start Date: 10/06/2017 ??2:29 PM Specimen Received Date: 10/06/2017 ??9:44 PM Soham James M.D., Ph.D. LAB MICROBIOLOG Y - BLOOD ORDERABLES [facility] [address] [place] [address], [facility] from Last 3 Months or Most Recently Relevant to Health Maintenance Care Teams Unit Secy Relationship Specialty Start Date End Date Shanae Ugarte APRN, C.N.P. [address] [place] [address] PCP - General 11/24/23
--- OUTSIDE RECORDS SUMMARY | 2024-02-07 10:25 | XMS_ITS | Encounter Summary ---
Author Organization [facility] Address [address] [place] [address] Care Team Providers Care Aerophysics Engineer Name Role Phone Soham James M.D., Ph.D. Primary Care Provider Reason for Visit * Reason Comments Med Refill Encounter Details Date Type Department Care Team (Late st Contact Info) Description 09/14/2023 Refill Department of Family Medicine, [facility], in [address] [phone] Soham James M.D., Ph.D. [address] [place] [phone] Med Refill Social History Tobacco Use Types [...] Total Score: 3 11/22/20 23 3:22 PM FREELANCE OPERATOR documented as of this encounter Care Teams Aerophysics Engineer Relationship Specialty Start Date End Date Soham James M.D., Ph.D. PCP - General 12/22/16 11/23/23 documented as of this encounter
--- OUTSIDE RECORDS SUMMARY | 2024-02-07 10:25 | XMS_ITS | Clinical Summary ---
Author Organization [facility] Address [address] [place] [address] Care Team Providers Care Rubber Stamp Maker Name Role Phone Soham James MD Primary Care Provider [phone] [phone] Allergies Active Allergy Reactions Criticality Noted Date [...] Comments Blood Pressure 118/67 08/07/2018 9:20 AM CREASING MACHINE OPERATOR Pulse 64 08/07/2018 9:20 AM CREASING MACHINE OPERATOR Temperature 36.6 ??C (97.9 ??F) 08/21/2012 8:20 AM CS T Respiratory Rate 20 08/07/2018 9:30 AM CREASING MACHINE OPERATOR Oxygen Saturation 91% 08/07/2018 9:27 AM CREASING MACHINE OPERATOR Inhaled Oxygen Concentration - - Weight 124.7 kg (275 lb) 08/07/2018 7:52 AM CREASING MACHINE OPERATOR Height 177.8 cm (5' 10) 08/07/2018 7:52 AM CREASING MACHINE OPERATOR Body Mass Index 39.46 08/07/2018 7:52 AM CREASING MACHINE OPERATOR Plan of Treatment Health Maintenance Due Date Last Done Comments ADVANCE CARE PLANNING 1945 ANNUAL REVIEW OF HM ORDERS 1945 LIPID 1945 TSH W/FREE T4 REFLEX 1945 HEPATITIS C SCREENING 1965 LUNG CANCER SCREENING 1997 ZOSTER IMMUNIZATION (1 of 2) 1997 RSV VACCINE ( & 60+) (1 - 1-dose 60+ series) 2007 FALL RISK ASSESSMENT 2012 GLUCOSE 08/21/2015 08/21/2012, 07/11, 08/07/2012, Additional history exists DTAP/TDAP/TD IMMUNIZATION (2 - Td or Tdap) 02/24/2020 02/23/2010 PHQ-2 (once per calendar year) 2023 COVID-19 Vaccine ( season) 2023 05/12/2023, 05/09/2022, 01/29/2022, Additional history exists INFLUENZA VACCINE (#1) 2024 3, 05/09/2022, 04/20/2020, Additional history exists COLONOSCOPY Discontinued 08/07/2018, 06/19/2008 COLORECTAL CANCER SCREENING Discontinued Pneumococcal Vaccine: 65+ Years Completed 12/04/2018, 08/18/2008 CT COLONOGRAPHY Discontinued FIT Discontinued FLEX SIG [...] Diagnosis Comments COLONOSCOPY Routine 08/07/2018 8:13 AM CREASING MACHINE OPERATOR GLUCOSE BY METER Routine 08/21/2012 7:19 AM CREASING MACHINE OPERATOR from Last 3 Months or Most Recently Relevant to Health Maintenance Results * COLONOSCOPY (08/07/2018 8:13 AM CREASING MACHINE OPERATOR) [facility] COLONOSCOPY [facility] Endoscopy Department ___ Patient Name: Shin Best ? Procedure Date: 08/07/2018 8:13 AM ? Date of : 1945 ? Admit Type: Outpatient Age: 73 ? Room: 3 Note Status: Finalized ?Attending MD: Abraham Milner , Total Sedation Time: 41 mins of continuous bedside 1:1 Instrument Name: 325 [id number] AdultColonoscope ___ Procedure: ?Colonoscopy Indications: ?Screening for [...] Procedure Code(s): ? --- Professional --- ? 08510, Colonoscopy, flexible; with removal of tumor(s), polyp(s), or ? other lesion(s) by snare technique Diagnosis Code(s): ? --- Professional --- ? Z12.11, Encounter for screening for malignant neoplasm of colon ? K62.1, Rectal polyp CPT copyright 2017 [employer]. All rights reserved. The codes documented in this report are preliminary and upon patient relations coordinator review may be revised to meet current compliance requirements. Abraham Milner, 08/07/2018 9:10:30 AM I was physically present for the entire viewing portion of the exam. Abraham Milner Number of Addenda: 0 Note Initiated On: 08/07/2018 8:13 AM MRN: ?[id number] Procedure Date: ? 08/07/2018 8:13:49 AM Scope Withdrawal Time: 0 hours 13 minutes 27 seconds Total Procedure Duration: 0 hours 40 minutes 58 seconds Estimated Blood Loss: ? Scope In: 8:20:39 AM Scope Out: 9:01:37 AM RADIOLOGY RESULTS 08/07/2018 8:13 AM CREASING MACHINE OPERATOR Soham James MD PROCEDURES RADIOLOGY RESULTS * Glucose by meter (08/21/2012 7:19 AM CREASING MACHINE OPERATOR) Glucose 79 60 - 99 mg/dL POINT OF CARE TEST, GLUCOSE Comment:Dr/RN Notified 08/21/2012 7:19 AM CREASING MACHINE OPERATOR 08/21/2012 7:25 AM CREASING MACHINE OPERATOR Stacy Ayers MD LAB - BEAKER POCT Performing Organization Address City/[facility] Co de Phone Number POINT OF CARE TEST, GLUCOSE from Last 3 Months or Most Recently Relevant to Health Maintenance Care Teams Rubber Stamp Maker Relationship Specialty Start Date End Date Soham James MD [facility] [address] [place] [address] PCP - General Family Practice 07/25/12
--- OUTSIDE RECORDS SUMMARY | 2024-02-07 10:25 | XMS_ITS ---
Author Organization [facility] Address [address] [place] [address] Care Team Providers Care Smasher Name Role Phone Unavailable Unavailable Unavailable Surgery Details Not on file Complications Check Surgery Details section. Procedure Estimated Blood Loss Check Surgery Details section. Procedure Findings Check Surgery Details section. Procedure Specimens Taken Check Surgery Details section.
--- OUTSIDE RECORDS SUMMARY | 2024-02-07 10:25 | XMS_ITS | Encounter Summary ---
Author Organization [facility] Address [address] [place] [address] Care Team Providers Care Quality Systems Manager Name Role Phone Soham James MD Primary Care Provider [phone] [phone] Encounter Details Date Type Department Care Team (Late st Contact Info) Description 2023 Telephone [facility] Podiatry [address] [facility] [address] [place] [address] Piper Castanon, DPMikki, Podiatry/Foot and Ankle Surgery [address] [place], [place] [address] Social History Tobacco Use Types Packs/Day Years [...] referral we received from Dr. Soham James ([facility]) via fax this morning. Scheduled patient to see Dr. Castanon on June 20 in [place]. Patient requested the building address be sent to him via mail, so a letter was sent out. Patient was appreciative of the call. Dionte Rodrigez, Visit Se[employer] Executive IALIST FIELD ENGINEER documented in this encounter Plan of Treatment Not on file documented as of this encounter Visit Diagnoses Not on filedocumented in this encounter Care Teams Quality Systems Manager Relationship Specialty Start Date End Date Soham James MD [facility] [address] [place] [address] PCP - General Family Practice 07/25/12 documented as of this encounter
--- OUTSIDE RECORDS SUMMARY | 2024-02-07 10:25 | XMS_ITS | Encounter Summary ---
Author Organization [facility] Address [address] [place] [address] Care Team Providers Care Air Brake Rigger Name Role Phone Soham James M.D., Ph.D. Primary Care Provider Reason for Referral * Medication Prior Authorization - Closed Specialty Diagnoses / Procedures Referred By Contcandie t Referred To Contact Diagnoses Diabetes Mellitus Type 2 With Diabetic Neuropathy (HCC) Soham James M.D., Ph.D. [address] [facility] [place] [address] Referral ID Status Reason Start Date Expiration Date Visits Re quested Visits Authorized [id number] Closed 1 1 Encounter Details Date Type Department Care Team (Late st Contact Info) Description 10/18/2023 Clinical Communication Department of Family Medicine, [facility], in [address] [phone] Soham James M.D., Ph.D. [address] [place] [address] Social History Tobacco Use Types [...] as of this encounter Care Teams Air Brake Rigger Relationship Specialty Start Date End Date Soham James M.D., Ph.D. PCP - General 12/22/16 11/23/23 documented as of this encounter
--- OUTSIDE RECORDS SUMMARY | 2024-02-07 10:25 | XMS_ITS | Encounter Summary ---
Author Organization [facility] Address [address] [place] [address] Care Team Providers Care Technology Methodology Consultant Name Role Phone Shanae Ugarte APRN, C.N.P. Primary Care Provide r Reason for Visit * Reason Comments Med Refill Encounter Details Date Type Department Care Team (Late st Contact Info) Description 11/27/2023 Refill Department of Family Medicine, [facility], in [address] [phone] Shanae Ugarte APRN, C.N.P. [address] [place] [phone] Med Refill Social History Tobacco Use Types [...] documented as of this encounter Care Teams Technology Methodology Consultant Relationship Specialty Start Date End Date Shanae Ugarte APRN, C.N.P. [address] [place] [address] PCP - General 11/24/23 documented as of this encounter
--- OUTSIDE RECORDS SUMMARY | 2024-02-07 10:25 | XMS_ITS | Encounter Summary ---
Author Organization [facility] Address [address] [place] [address] Care Team Providers Care Ballistic Expert Name Role Phone Shanae Ugarte APRN, C.N.P. Primary Care Provide r Encounter Details Date Type Department Care Team (Late st Contact Info) Description 01/16/2024 Orders Only [facility] PCP [facility] MNT Shanae Ugarte, ARRON, C.N.P. 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 [address] [place] [address] PCP - General 11/24/23 documented as of this encounter
--- OUTSIDE RECORDS SUMMARY | 2024-02-07 10:25 | XMS_ITS | Encounter Summary ---
Author Organization [facility] Address [address] [place] [address] Care Team Providers Care Information Technology Auditor Name Role Phone Shanae Ugarte APRN, C.N.P. Primary Care Provide r Encounter Details Date Type Department Care Team (Late st Contact Info) Description 01/02/2024 Clinical Communication Department of Family Medicine, [facility], in [address] [phone] Shanae Ugarte APRN, C.N.P. [address] [place] [address] Social History Tobacco Use Types [...] encounter Miscellaneous Notes * Telephone Encounter - Clarisa Chase L.P.N. - 01/04/2024 9:58 AM CDT A copy of this note was faxed to [facility] so that they would have all of the necessary information. documented in this encounter Plan of Treatment Not on file documented as of this encounter Visit Diagnoses Not on filedocumented in this encounter Additional Health Concerns Assessment Noted Time PHQ-9 Depression Total Score: 5 10/11/19 24 9:23 PM CDT documented as of this encounter Care Teams Information Technology Auditor Relationship Specialty Start Date End Date Shanae Ugarte APRN, C.N.P. [address] [place] [address] PCP - General 11/24/23 documented as of this encounter
--- OUTSIDE RECORDS SUMMARY | 2024-02-07 10:25 | XMS_ITS | Referral Summary ---
Author Organization [facility] Address [address] [place] [address] Care Team Providers Care Ham Rolling Machine Operator Name Role Phone Soham James MD Primary Care Provider [phone] [phone] Allergies Active Allergy Reactions Criticality Noted Date [...] Comments Blood Pressure 118/67 08/07/2018 9:20 AM GROUNDS PERSON Pulse 64 08/07/2018 9:20 AM GROUNDS PERSON Temperature 36.6 ??C (97.9 ??F) 08/21/2012 8:20 AM CS T Respiratory Rate 20 08/07/2018 9:30 AM GROUNDS PERSON Oxygen Saturation 91% 08/07/2018 9:27 AM GROUNDS PERSON Inhaled Oxygen Concentration - - Weight 124.7 kg (275 lb) 08/07/2018 7:52 AM GROUNDS PERSON Height 177.8 cm (5' 10) 08/07/2018 7:52 AM GROUNDS PERSON Body Mass Index 39.46 08/07/2018 7:52 AM GROUNDS PERSON Plan of Treatment Not on file Procedures Procedure Name Priority Date/Time Associated Diagnosis Comments COLONOSCOPY Routine 08/07/2018 8:13 AM GROUNDS PERSON GLUCOSE BY METER Routine 08/21/2012 7:19 AM GROUNDS PERSON from Last 3 Months or Most Recently Relevant to Health Maintenance Results * COLONOSCOPY (08/07/2018 8:13 AM GROUNDS PERSON) [facility] COLONOSCOPY [facility] Endoscopy Department ___ Patient Name: Shin Best ? Procedure Date: 08/07/2018 8:13 AM ? Date of : 1945 ? Admit Type: Outpatient Age: 73 ? Room: 3 Note Status: Finalized ?Attending MD: Abraham Milner , Total Sedation Time: 41 mins of continuous bedside 1:1 Instrument Name: 325 [id number] AdultColonoscope ___ Procedure: ?Colonoscopy Indications: ?Screening for [...] Procedure Code(s): ? --- Professional --- ? 93738, Colonoscopy, flexible; with removal of tumor(s), polyp(s), or ? other lesion(s) by snare technique Diagnosis Code(s): ? --- Professional --- ? Z12.11, Encounter for screening for malignant neoplasm of colon ? K62.1, Rectal polyp CPT copyright 2017 [employer]. All rights reserved. The codes documented in this report are preliminary and upon spring coverer review may be revised to meet current compliance requirements. Abraham Milner, 08/07/2018 9:10:30 AM I was physically present for the entire viewing portion of the exam. Abraham Milner Number of Addenda: 0 Note Initiated On: 08/07/2018 8:13 AM MRN: ?[id number] Procedure Date: ? 08/07/2018 8:13:49 AM Scope Withdrawal Time: 0 hours 13 minutes 27 seconds Total Procedure Duration: 0 hours 40 minutes 58 seconds Estimated Blood Loss: ? Scope In: 8:20:39 AM Scope Out: 9:01:37 AM RADIOLOGY RESULTS 08/07/2018 8:13 AM GROUNDS PERSON Soham James MD PROCEDURES RADIOLOGY RESULTS * Glucose by meter (08/21/2012 7:19 AM GROUNDS PERSON) Glucose 79 60 - 99 mg/dL POINT OF CARE TEST, GLUCOSE Comment:Dr/RN Notified 08/21/2012 7:19 AM GROUNDS PERSON 08/21/2012 7:25 AM GROUNDS PERSON Stacy Ayers MD [facility] POCT POINT OF CARE TEST, GLUCOSE from Last 3 Months or Most Recently Relevant to Health Maintenance Care Teams Ham Rolling Machine Operator Relationship Specialty Start Date End Date Soham James MD [facility] [address] [place] [address] PCP - General Family Practice 07/25/12
--- OUTSIDE RECORDS SUMMARY | 2024-02-07 10:25 | XMS_ITS | Encounter Summary ---
Author Organization [facility] Address [address] [place] [address] Care Team Providers Care Screener Operator Name Role Phone Soham James M.D., Ph.D. Primary Care Provider Reason for Visit * Reason Onset Date Comments PandaDoc Form 11/06/2023 [facility] (PT Outpatient Eval 11/02/23 Encounter Details Date Type Department Care Team (Latest Contact Info) Description 11/06/2023 Clinical Communication Department of Family Medicine, [facility], in [address] [phone] Soham James M.D., Ph.D. [address] [place] [address] PandaDoc Form ([facility] (PT Outpatient Eval 11/02/23) Social History Tobacco [...] AM CDT Completed form(s) faxed back to [place], and sent to [facility] for scanning. * Telephone Encounter - Madelyn Maranda Kaye - 11/06/2023 4:50 PM CDT Form was routed to Soham James M.D., Ph.D. for electronic review/signature. DEVIL DOG: [facility] PHONE NUMBER: [phone] INFO REQUESTED: PT Outpatient Eval 11/02/23 INSTRUCTIONS: Fax information to [phone] documented in this encounter Plan of Treatment Not on file documented as of this encounter Visit Diagnoses Not on filedocumented in this encounter Additional Health Concerns Assessment Noted Time PHQ-9 Depression Total Score: 5 10/11/19 24 9:23 PM CDT documented as of this encounter Care Teams Screener Operator Relationship Specialty Start Date End Date Soham James M.D., Ph.D. PCP - General 12/22/16 11/23/23 documented as of this encounter
--- OUTSIDE RECORDS SUMMARY | 2024-02-07 10:25 | XMS_ITS | Referral Summary ---
Author Organization [facility] Address [address] [place] [address] Care Team Providers Care Cadd Operator Name Role Phone Shanae Ugarte APRN, C.N.P. Primary Care Provide r Source Comments Patient records contain information from all sites at [facility]. For routine questions regarding patient records, call [phone] during business hours, M-F 8:00 AM - 5:00 PM Central Time. Record requests for emergency care only can be directed to [phone] at any time.[facility] Encounters Date Type Department Care Team Description 01/16/2024 Orders Only [facility] MNT Shanae Ugarte APRN, C.N.P. 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 11/27/2023 Refill Department of Family Medicine, [facility], in [address] [phone] Shanae Ugarte APRN, C.N.P. Med Refill from Last 3 Months Allergies Active Allergy Reactions Criticality Noted Date Comments Esomeprazole Magnesium Nausea Only 11/12/2012 INCREASED ACID Penicillins Hives (Reselect Reaction) 04/15/2014 Rjwlsyb-Wsr-Pao Reductase Inhibitors Myalgia 04/15/2014 Medications Medication Sig [...] mouth daily. 90 tablet 3 08/17/2023 Active Ziyad Theodore U-100 Insulin 100 unit/mL (3 mL) [...] 810 capsule 3 10/11/2023 5 Active DME CPAPIndications:Tribal Council Member ea Sleep Obstructive DME Order 1 each [...] Complication 07/30/2019 Venous Insufficiency Chronic Peripheral 07/30/19 20 Primary [...] - MODE RNA (12 YEARS AND OLDER) [id number] 05/12/2023 SARS-COV-2 (COVID-19) - MODERNA(Discontinued) SARS-COV-2 (COVID-19) [...] 177 cm (5' 9.69) 05/31/2023 2:47 PM COST RECORDER Body Mass Index 39.32 05/31/2023 2:47 PM COST RECORDER Plan of Treatment Not on file Medical Devices Implanted Type Area Drawing Tender Device Identifier Shelf Expiration Date Model / Serial / Lot Knee Implant- 0 Implanted:08/14 by Amrik Falcon M.D. (Quantity not on file) Knee Implant Knee Procedures Procedure Name Priority Date/Time Associated Diagnosis Comments HEMOGLOBIN A1C, B Routine 10/11/2023 7:1 2 PM CDT Diabetes Mellitus Type 2 With Diabetic Neuropathy (HCC) ALBUMIN, RANDOM, U Routine 05/31/2023 2:26 PM COST RECORDER Diabetes Mellitus Type 2 With Diabetic Neuropathy Hyperglycemic (HCC) BASIC METABOLIC PANEL, S/P Routine 05/31/2023 2:22 PM COST RECORDER Monitoring For Therapeutic Drug Therapy THYROID-STIMULATI NG [...] LAB BLOOD ADD-O N Performing Organization Address City/[facility]/ZIP Co de Phone Number [address] [address], [address] [address] * (ABNORMAL) Albumin, Random, Urine (05/31/2023 2:26 PM COST RECORDER) Pathologist [facility] Microalbumin 53.8 mg/L 05/31/2023 2:48 PM COST RECORDER CNFL Creatinine 115 mg/dL 05/31/2023 2:48 PM COST RECORDER CNFL Albumin/Creatinin e Ratio 47(H) <17 mg/g 05/31/2023 2:48 PM COST RECORDER CNFL Urine (Urine, Midstream) 05/31/2023 2:26 PM COST RECORDER 05/31/2023 2:26 PM COST RECORDER Soham James M.D., Ph.D. LAB URINE ORDER SREEKANTH Performing Organization Address City/[facility]/ZIP Co de Phone Number [address] [address], [address] [place] [address] * (ABNORMAL) Basic Metabolic Panel (05/31/2023 2:22 PM COST RECORDER) Potassium, P 4.2 3.6 - 5.2 mmol/L 05/31/2023 2:47 PM COST RECORDER CNFL Sodium, P 139 135 - 145 mmol/L 05/31/2023 2:47 PM COST RECORDER CNFL Chloride, P 102 98 - 107 mmol/L 05/31/2023 2:47 PM COST RECORDER CNFL Bicarbonate, P 26 22 - 29 mmol/L 05/31/2023 2:47 PM COST RECORDER CNFL Anion Gap, P 11 7 - 15 05/31/2023 2:47 PM COST RECORDER CNFL BUN (Blood Urea Nitrogen), P 26(H) 8 - 24 mg/dL 05/31/2023 2:47 PM COST RECORDER CNFL Creatinine 1.62(H) 0.74 - 1.35 mg/dL 05/31/2023 2:47 PM COST RECORDER CNFL Estimated GFR (eGFR) 44(L) >=60 mL/min/BSA 05/31/2023 2:47 PM COST RECORDER CNFL Comment: Estimated GFR calculated using the 2020 CKD_EPI creatinine equation. Calcium, Total, P 9.1 8.8 - 10.2 mg/dL 05/31/2023 2:47 PM COST RECORDER CNFL Glucose, P 293(H) 70 - 140 mg/dL 05/31/2023 2:47 PM COST RECORDER CNFL Blood (Blood, Venous) 05/31/2023 2:22 PM COST RECORDER 05/31/2023 2:23 PM COST RECORDER Soham James M.D., Ph.D. LAB BLOOD ADD-O N [facility] [address] [place] [address], [place] CNFL [facility] in [address] [address] * S-TSH (Thyroid-Stimulating Hormone - Sensitive) (10/25/2021 10:43 AM CDT) Pathologist [facility] TSH, Sensitive 1.8 0.3 - 4.2 mIU/L 10/25/2021 11:15 AM CDT CNFL Blood (Blood, Venous) 10/25/2021 10:43 AM CDT 10/25/2021 10:47 AM CDT Soham James M.D., Ph.D. LAB BLOOD ADD-O N [facility] [address] [place] [address], [facility] CNFL [facility] in [address] [address] * [place] Aorta AAA Screening (05/05/2020 10:41 [...] 10/09/2017 10:[address] [facility] Blood 10/06/2017 2:29 PM CDT 10/06/2017 9:44 PM CDT Narrative [facility] - 10/09/2017 10:35 AM CDT Specimen Information: Specimen ID: [id number] Specimen Type: Blood Specimen Collection Start Date: 10/06/2017 ??2:29 PM Specimen Received Date: 10/06/2017 ??9:44 PM Specimen ID: [id number] Specimen Type: Blood Specimen Collection Start Date: 10/06/2017 ??2:29 PM Specimen Received Date: 10/06/2017 ??9:44 PM Soham James M.D., Ph.D. LAB MICROBIOLOG Y - BLOOD ORDERABLES [facility] [address] [place] [address], [facility] from Last 3 Months or Most Recently Relevant to Health Maintenance Care Teams Cadd Operator Relationship Specialty Start Date End Date Shanae Ugarte APRN, C.N.P. [address] [place] [phone] (work) [facility] - General 11/24/23
--- OUTSIDE RECORDS SUMMARY | 2024-02-07 10:25 | XMS_ITS | Encounter Summary ---
Author Organization [facility] Address [address] [place] [address] Care Team Providers Care Cap Coverer Name Role Phone Soham James M.D., Ph.D. Primary Care Provider Reason for Visit * Reason Comments Med Change Request Encounter Details Date Type Department Care Team (Late st Contact Info) Description 09/15/2023 Refill Department of Family Medicine, [facility], in [address] [phone] Soham James M.D., Ph.D. [address] [place] [phone] Med Change Request Social History Tobacco Use [...] Total Score: 3 11/22/20 23 3:22 PM CREAM CHEESE MAKER documented as of this encounter Care Teams Cap Coverer Relationship Specialty Start Date End Date Soham James M.D., Ph.D. PCP - General 12/22/16 11/23/23 documented as of this encounter
== END 2024-02-07 10:22 | disposition home or self-care (01) ==
LOC: WOUND 10:22
PROVIDERS: PCP Family Medicine; Visit Provider Surgery
DX: E11.621 Type 2 diabetes mellitus with foot ulcer (principal); L97.512 Non-pressure chronic ulcer of other part of right foot with fat layer exposed; Z79.4 Long term (current) use of insulin
CPT/HCPCS: 97597

== ENCOUNTER 2024-02-14 10:27 | Outpatient (CLI) | payer MEDICARE, BC, SELFPAY ==
--- OUTSIDE RECORDS SUMMARY | 2024-02-14 10:32 | XMS_ITS | Clinical Summary ---
Author Organization [facility] Address [place], [place] [address] Care Team Providers Care Cosmetology Instructor Name Role Phone Hao Drew MD Unavailable [phone] Desiree Black MD Primary Care Provider + Allergies Active Allergy Reactions Criticality Noted Date Comments Esomeprazole Magnesium Nausea Only 11/12/2012 INCREASED ACID Penicillins Hives 04/15/2014 Gsrqblj-Txq-Pss Reductase Inhibitors Nausea Only,Myalgia 04/15/2014 Medications Medication [...] 05/05/2015 Hyperlipidemia 05/05/2015 CAD (coronary artery disease), [place] coronary a rtery 10/30/2014 Systolic murmur 09/29/2014 [...] Encounters Date Type Department Care Team Description 02/12/[address] [facility] [address] [place] [address] Hao Drew MD Results 02/05/2024 4:40 PM CDT Orders Only [facility] [address] [place] [address] Lab, Appv Lab 02/05/2024 4:00 PM CDT Office Visit [facility] [address] [place] [address] Hao Drew MD Concerns (Paitent denies chest pain, shortness of breath /Patient states he has been having some dizziness ) 02/05/2024 Travel 12/27/2023 Patient Outreach [facility] [address] [place] [address] [facility] Coordination - [facility] from Last 3 Months Immunizations Name Administration [...] ??C (98.1 ??F) 08/17/2023 1 0:43 AM APPEALS WRITER Respiratory Rate 16 02/05/2024 4:04 PM CDT [...] 9, 08/18/2008 Medical Devices Implanted Type Area Astronautical Engineer Device Identifier Shelf Expiration Date Model / Serial / Lot Cmnt Bone Simplex Hv Gentamicin - [id number] Implanted:Qty: 2 on 04/28/2014 by Amrik Falcon MD at [facility] Left: Knee [employer] 11/06/2014 6195-1-001 # / / [id number] Patella [id number] Triathlon Asymmetric X3 - [id number] Implanted:Qty: 1 on 04/28/2014 by Amrik Falcon MD at [facility] Left: Knee [employer] 02/06/2019 5551-G-350 # / / [id number] Fem Lt Sz7 Triathlon Post Stbznon Pors - [id number] Implanted:Qty: 1 on 04/28/2014 by Amrik Falcon MD at [facility] Left: Knee [employer] 02/06/2018 5515-F-701 # / / [id number] Baseplate Tib Sz6 Triathlon Pe - [id number] Implanted:Qty: 1 on 04/28/2014 by Amrik Falcon MD at [facility] Left: Knee [employer] 12/07/2018 5521-B-600 # / / [id number] Insert Knee Sz6 11mm Triathlonpost Stbz X3 - [id number] Implanted:Qty: 1 on 04/28/2014 by Amrik Falcon MD at [facility] Left: Knee [employer] 02/06/2019 5532-G-611 # / / [id number] Triathlon X3 Asymmetric Patella [id number] - [id number] Implanted:Qty: 1 on 08/14/2019 by Amrik Falcon MD at [facility] Right: Knee [employer] 02/19/2024 5551-G-381 -E / / [id number] Triathlon X3 Tibial Bearing Insert Cs Valery 5 Typ Cs Thkns 11mm - [id number] Implanted:Qty: 1 on 08/14/2019 by Amrik Falcon MD at [facility] Right: Knee [employer] 03/24/2024 5531-G-511 -E / / [id number] Cmnt Bone Simplex Hv - [id number] Implanted:Qty: 1 on 08/14/2019 by Amrik Falcon MD at [facility] Right: Knee [employer] 12/07/2020 6194-1-001 # / / [id number] Cmnt Bone Simplex Hv Gentamicin - [id number] Implanted:Qty: 1 on 08/14/2019 by Amrik Falcon MD at [facility] Right: Knee [employer] 06/08/2020 6195-1-001 # / / [id number] Fem Rt Sz6 Triathlon Cruc Ret Co Cr - [id number] Implanted:Qty: 1 on 08/14/2019 by Amrik Falcon MD at [facility] Right: Knee [employer] 01/11/2024 5510-F-602 # / / [id number] Baseplate Tib Sz5 Triathlon Pe - [id number] Implanted:Qty: 1 on 08/14/2019 by Amrik Falcon MD at [facility] Right: Knee [employer] 04/17/2024 5521-B-500 [...] - 145 mmol/L 02/06/2024 9:25 AM CDT [facility] POTASSIUM 4.3 3.5 - 5.1 mmol/L 02/06/2024 9:25 AM CDT [facility] CHLORIDE 99 98 - 107 mmol/L 02/06/2024 9:25 AM CDT [facility] CO2,TOTAL 27 22 - 29 mmol/L 02/06/2024 9:25 AM CDT [facility] ANION GAP 13 5 - 18 02/06/2024 9:25 AM CDT [facility] GLUCOSE 156(H) 70 - 99 mg/dL 02/06/2024 9:25 AM CDT [facility] CALCIUM 10.1 8.8 - 10.2 mg/dL 02/06/2024 9:25 AM T [facility] BUN 36(H) 8 - 23 mg/dL 02/06/2024 9:25 AM T [facility] CREATININE 2.09(H) 0.70 - 1.20 mg/dL 02/06/2024 9:25 AM T [facility] BUN/CREAT RATIO 17 10 - 20 9:25 AM CDT [facility] eGFR 32(L) >90 mL/min/1.7 3m2 02/06/2024 9:25 AM T [facility] Comment:As of 2021, eG FR [...] 4:41 PM CDT Hao Drew MD CHEMISTRY [facility] [address] [place] [address], [place] from Last 3 Months Advance Directives [...] 11:50 PM 08/09/2018 3:08 PM Care Teams Cosmetology Instructor Relationship Specialty Start Date End Date Desiree Black MD [address] [place] [address] PCP - General Family Practice 02/05/24 Hao Drew MD [address] [facility] [address] [place] [address] Cardiology Cardiovascular Disease 12/30/19
--- OUTSIDE RECORDS SUMMARY | 2024-02-14 10:32 | XMS_ITS | Clinical Summary ---
Author Organization [facility] Address [address] [place] [address] Care Team Providers Care Pharmacy Assistant Name Role Phone Shanae Ugarte APRN, C.N.P. Primary Care Provide r Source Comments Patient records contain information from all sites at [facility]. For routine questions regarding patient records, call [phone] during business hours, M-F 8:00 AM - 5:00 PM Central Time. Record requests for emergency care only can be directed to [phone] at any time.[facility] Allergies Active Allergy Reactions Criticality Noted Date Comments Esomeprazole Magnesium Nausea Only 11/12/2012 INCREASED ACID Penicillins Hives (Reselect Reaction) 04/15/2014 Juwizjt-Sxp-Ijr Reductase Inhibitors Myalgia 04/15/2014 Medications Medication Sig [...] 810 capsule 3 10/11/2023 5 Active DME CPAPIndications:It Trainee ea Sleep Obstructive DME Order 1 each [...] [facility] Shanae Ugarte, LOWER IN SUPERVISOR, C.N.P. 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 11/27/2023 Refill Department of Family Medicine, [facility], in [address] [phone] Shanae Ugarte APRN, C.N.P. Med [...] - MODE RNA (12 YEARS AND OLDER) [id number] 05/12/2023 SARS-COV-2 (COVID-19) - MODERNA(Discontinued) SARS-COV-2 (COVID-19) [...] 177 cm (5' 9.69) 05/31/2023 2:47 PM BARBACK Body Mass Index 39.32 05/31/2023 2:47 PM BARBACK Plan of Treatment Health Maintenance Due Date Last Done Comments Dilated Eye Exam 1945 Zoster Vaccines (1 of 2) 1997 Hepatitis B Vaccines (1 of 3 - Risk 3-dose series) 2007 DTaP,Tdap,and Td Vaccines (2 - Td or Tdap) 02/24/2020 02/23/2010 COVID-19 Vaccine (2022-2 4 season) 2023 05/12/2023, 05/09/2022, 01/30/2022, Additional history exists Hemoglobin A1C 01/10/2024 10/11/2023, 12/0 02/2023, 05/31/2023, Additional history exists Depression Monitoring (PHQ-9) 02/10/2024 10/11/2023 Influenza Vaccine (#1) 2024 3, 05/12/2023, 05/09/2022, Additional history exists Urine Albumin 05/31/2024 05/31/2023, 04/1 02/2022, 09/15/2020, Additional history exists Visit: Medicare Annual [...] FIT Discontinued Medical Devices Implanted Type Area Message Clerk Device Identifier Shelf Expiration Date Model / Serial / Lot Knee Implant- 0 Implanted:08/14 by Amrik Falcon M.D. (Quantity not on file) Knee Implant Knee Procedures Procedure Name Priority Date/Time Associated Diagnosis Comments HEMOGLOBIN A1C, B Routine 10/11/2023 7:1 2 PM CDT Diabetes Mellitus Type 2 With Diabetic Neuropathy (HCC) ALBUMIN, RANDOM, U Routine 05/31/2023 2:26 PM BARBACK Diabetes Mellitus Type 2 With Diabetic Neuropathy Hyperglycemic (HCC) BASIC METABOLIC PANEL, S/P Routine 05/31/2023 2:22 PM BARBACK Monitoring For Therapeutic Drug Therapy THYROID-STIMULATI NG [...] LAB BLOOD ADD-O N Performing Organization Address [facility]/State/[facility] Co de Phone Number [facility] [address] [place] [address], [facility] [place] [phone] * (ABNORMAL) Albumin, Random, Urine (05/31/2023 2:26 PM BARBACK) Microalbumin 53.8 mg/L 05/31/2023 2:48 PM BARBACK CNFL Creatinine 115 mg/dL 05/31/2023 2:48 PM BARBACK CNFL Albumin/Creatinin e Ratio 47(H) <17 mg/g 05/31/2023 2:48 PM BARBACK CNFL Urine (Urine, Midstream) 05/31/2023 2:26 PM BARBACK 05/31/2023 2:26 PM BARBACK Soham James M.D., Ph.D. LAB URINE ORDER SREEKANTH [address] [address], [facility] CNFL [facility] in [address] [address] * (ABNORMAL) Basic Metabolic Panel (05/31/2023 2:22 PM BARBACK) Potassium, P 4.2 3.6 - 5.2 mmol/L 05/31/2023 2:47 PM BARBACK CNFL Sodium, P 139 135 - 145 mmol/L 05/31/2023 2:47 PM BARBACK CNFL Chloride, P 102 98 - 107 mmol/L 05/31/2023 2:47 PM BARBACK CNFL Bicarbonate, P 26 22 - 29 mmol/L 05/31/2023 2:47 PM BARBACK CNFL Anion Gap, P 11 7 - 15 05/31/2023 2:47 PM BARBACK CNFL BUN (Blood Urea Nitrogen), P 26(H) 8 - 24 mg/dL 05/31/2023 2:47 PM BARBACK CNFL Creatinine 1.62(H) 0.74 - 1.35 mg/dL 05/31/2023 2:47 PM BARBACK CNFL Estimated GFR (eGFR) 44(L) >=60 mL/min/BSA 05/31/2023 2:47 PM BARBACK CNFL Comment: Estimated GFR calculated using the 2020 CKD_EPI creatinine equation. Calcium, Total, P 9.1 8.8 - 10.2 mg/dL 05/31/2023 2:47 PM BARBACK CNFL Glucose, P 293(H) 70 - 140 mg/dL 05/31/2023 2:47 PM BARBACK CNFL Blood (Blood, Venous) 05/31/2023 2:22 PM BARBACK 05/31/2023 2:23 PM BARBACK Soham James M.D., Ph.D. LAB BLOOD ADD-O N [facility] [address] [place] [address], [facility] CNFL [facility] in [address] [address] * S-TSH (Thyroid-Stimulating Hormone - Sensitive) (10/25/2021 10:43 AM CDT) TSH, Sensitive 1.8 0.3 - 4.2 mIU/L 10/25/2021 11:15 AM CDT CNFL Blood (Blood, Venous) 10/25/2021 10:43 AM CDT 10/25/2021 10:47 AM CDT Soham James M.D., Ph.D. LAB BLOOD ADD-O N [facility] [address] [place] [address], [facility] in [address] [address] * [place] Aorta AAA Screening (05/05/2020 10:41 [...] negative for aneurysm. Soham James M.D., Ph.D. [facility] US PROCEDUR ES * HCV AB Scrn w/Reflex to HCV PCR, S (10/06/2017 2:29 PM CDT) HCV Ab Screen, S Nonreactive Nonreactive 10/09/2017 10:35 AM CDT [facility] Blood 10/06/2017 2:29 PM CDT 10/06/2017 9:44 PM CDT Narrative [facility] - 10/09/2017 10:35 AM CDT Specimen Information: Specimen ID: [id number] Specimen Type: Blood Specimen Collection Start Date: 10/06/2017 ??2:29 PM Specimen Received Date: 10/06/2017 ??9:44 PM Specimen ID: [id number] Specimen Type: Blood Specimen Collection Start Date: 10/06/2017 ??2:29 PM Specimen Received Date: 10/06/2017 ??9:44 PM Soham James M.D., Ph.D. LAB MICROBIOLOG Y - BLOOD ORDERABLES [facility] [address] [place] [address], [facility] from Last 3 Months or Most Recently Relevant to Health Maintenance Care Teams Pharmacy Assistant Relationship Specialty Start Date End Date Shanae Ugarte APRN, C.N.P. [address] [place] [address] PCP - General 11/24/23
--- OUTSIDE RECORDS SUMMARY | 2024-02-14 10:33 | XMS_ITS | Encounter Summary ---
Author Organization [facility] Address [address] [place] [address] Care Team Providers Care Employee Communications Intern Name Role Phone Soham James M.D., Ph.D. Primary Care Provider Reason for Referral * Medication Prior Authorization - Closed Specialty Diagnoses / Procedures Referred By Contcandie t Referred To Contact Diagnoses Diabetes Mellitus Type 2 With Diabetic Neuropathy (HCC) Soham James M.D., Ph.D. [address] [place] [address] Referral ID Status Reason Start Date Expiration Date Visits Re quested Visits Authorized [id number] Closed 1 1 Encounter Details Date Type Department Care Team (Late st Contact Info) Description 10/18/2023 Clinical Communication Department of Family Medicine, [facility], in [address] [phone] Soham James M.D., Ph.D. [address] [place] [address] Social History Tobacco Use Types [...] documented as of this encounter Care Teams Employee Communications Intern Relationship Specialty Start Date End Date Soham James M.D., Ph.D. PCP - General 12/22/16 11/23/23 documented as of this encounter
--- OUTSIDE RECORDS SUMMARY | 2024-02-14 10:33 | XMS_ITS | Referral Summary ---
Author Organization [facility] Address [address] [place] [address] Care Team Providers Care Assessment Consultant Name Role Phone Soham James MD Primary Care Provider [phone] [phone] Allergies Active Allergy Reactions Criticality Noted Date [...] Comments Blood Pressure 118/67 08/07/2018 9:20 AM FIELD INSTRUCTOR Pulse 64 08/07/2018 9:20 AM FIELD INSTRUCTOR Temperature 36.6 ??C (97.9 ??F) 08/21/2012 8:20 AM CS T Respiratory Rate 20 08/07/2018 9:30 AM FIELD INSTRUCTOR Oxygen Saturation 91% 08/07/2018 9:27 AM FIELD INSTRUCTOR Inhaled Oxygen Concentration - - Weight 124.7 kg (275 lb) 08/07/2018 7:52 AM FIELD INSTRUCTOR Height 177.8 cm (5' 10) 08/07/2018 7:52 AM FIELD INSTRUCTOR Body Mass Index 39.46 08/07/2018 7:52 AM FIELD INSTRUCTOR Plan of Treatment Not on file Procedures Procedure Name Priority Date/Time Associated Diagnosis Comments COLONOSCOPY Routine 08/07/2018 8:13 AM FIELD INSTRUCTOR GLUCOSE BY METER Routine 08/21/2012 7:19 AM FIELD INSTRUCTOR from Last 3 Months or Most Recently Relevant to Health Maintenance Results * COLONOSCOPY (08/07/2018 8:13 AM FIELD INSTRUCTOR) [facility] COLONOSCOPY [facility] Endoscopy Department ___ Patient Name: Shin Best ? Procedure Date: 08/07/2018 8:13 AM ? Date of : 1945 ? Admit Type: Outpatient Age: 73 ? Room: 3 Note Status: Finalized ?Attending MD: Abraham Milner , Total Sedation Time: 41 mins of continuous bedside 1:1 Instrument Name: 325 [id number] AdultColonoscope ___ Procedure: ?Colonoscopy Indications: ?Screening for colorectal malignant neoplasm Providers: ?bAraham Milner, Marietta Garnica RN Referring MD: ? [...] Procedure Code(s): ? --- Professional --- ? 75091, Colonoscopy, flexible; with removal of tumor(s), polyp(s), or ? other lesion(s) by snare technique Diagnosis Code(s): ? --- Professional --- ? Z12.11, Encounter for screening for malignant neoplasm of colon ? K62.1, Rectal polyp CPT copyright 2017 [employer]. All rights reserved. The codes documented in this report are preliminary and upon clinical trials nurse review may be revised to meet current compliance requirements. Abraham Milner, 08/07/2018 9:10:30 AM I was physically present for the entire viewing portion of the exam. Abraham Milner Number of Addenda: 0 Note Initiated On: 08/07/2018 8:13 AM MRN: ?[id number] Procedure Date: ? 08/07/2018 8:13:49 AM Scope Withdrawal Time: 0 hours 13 minutes 27 seconds Total Procedure Duration: 0 hours 40 minutes 58 seconds Estimated Blood Loss: ? Scope In: 8:20:39 AM Scope Out: 9:01:37 AM RADIOLOGY RESULTS 08/07/2018 8:13 AM FIELD INSTRUCTOR Soham James MD PROCEDURES RADIOLOGY RESULTS * Glucose by meter (08/21/2012 7:19 AM FIELD INSTRUCTOR) Glucose 79 60 - 99 mg/dL POINT OF CARE TEST, GLUCOSE Comment:Dr/RN Notified 08/21/2012 7:19 AM FIELD INSTRUCTOR 08/21/2012 7:25 AM FIELD INSTRUCTOR Stacy Ayers MD [facility] POCT POINT OF CARE TEST, GLUCOSE from Last 3 Months or Most Recently Relevant to Health Maintenance Care Teams Assessment Consultant Relationship Specialty Start Date End Date Soham James MD [facility] [address] [place] [address] PCP - General Family Practice 07/25/12
--- OUTSIDE RECORDS SUMMARY | 2024-02-14 10:33 | XMS_ITS | Encounter Summary ---
Author Organization [facility] Address [address] [place] [address] Care Team Providers Care Service Order Clerk Name Role Phone Soham James M.D., Ph.D. Primary Care Provider Reason for Visit * Reason Comments Med Change Request Encounter Details Date Type Department Care Team (Late st Contact Info) Description 09/15/2023 Refill Department of Family Medicine, [facility], in [address] [phone] Soham James M.D., Ph.D. 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 PCP - General 12/22/16 11/23/23 documented as of this encounter
--- OUTSIDE RECORDS SUMMARY | 2024-02-14 10:33 | XMS_ITS | Encounter Summary ---
Author Organization [facility] Address [address] [place] [address] Care Team Providers Care Treating Inspector Name Role Phone Soham James M.D., Ph.D. Primary Care Provider Reason for Visit * Reason Onset Date Comments PandaDoc Form 11/06/2023 [facility] (PT Outpatient Eval 11/02/23 Encounter Details Date Type Department Care Team (Latest Contact Info) Description 11/06/2023 Clinical Communication Department of Family Medicine, [facility], in [address] [phone] Soham James M.D., Ph.D. [address] [place] [address] PandaDoc Form ([facility] (PT Outpatient Eval 11/02/23) Social History [...] AM CDT Completed form(s) faxed back to [place], and sent to [facility] for scanning. * Telephone Encounter - Madelyn Maranda Kaye - 11/06/2023 4:50 PM CDT Form was routed to Soham James M.D., Ph.D. for electronic review/signature. STRIP STAMP STRAIGHTENER: [facility] PHONE NUMBER: [phone] INFO REQUESTED: PT Outpatient Eval 11/02/23 INSTRUCTIONS: Fax information to [phone] documented in this encounter Plan of Treatment Not on file documented as of this encounter Visit Diagnoses Not on filedocumented in this encounter Additional Health Concerns Assessment Noted Time PHQ-9 Depression Total Score: 5 10/11/19 24 9:23 PM CDT documented as of this encounter Care Teams Treating Inspector Relationship Specialty Start Date End Date Soham James M.D., Ph.D. PCP - General 12/22/16 11/23/23 documented as of this encounter
--- OUTSIDE RECORDS SUMMARY | 2024-02-14 10:33 | XMS_ITS | Encounter Summary ---
Author Organization [facility] Address [address] [place] [address] Care Team Providers Care Acoustical Tile Carpenters Supervisor Name Role Phone Shanae Ugarte APRN, C.N.P. Primary Care Provide r Reason for Visit * Reason Comments Med Refill Encounter Details Date Type Department Care Team (Late st Contact Info) Description 11/27/2023 Refill Department of Family Medicine, [facility], in [address] [phone] Shanae Ugarte APRN, C.N.P. [address] [place] [phone] Med Refill Social History Tobacco Use Types [...] documented as of this encounter Care Teams Acoustical Tile Carpenters Supervisor Relationship Specialty Start Date End Date Shanae Ugarte APRN, C.N.P. [address] [place] [address] PCP - General 11/24/23 documented as of this encounter
--- OUTSIDE RECORDS SUMMARY | 2024-02-14 10:33 | XMS_ITS | Encounter Summary ---
Author Organization [facility] Address [address] [place] [address] Care Team Providers Care Governor Assembler Hydraulic Name Role Phone Shanae Ugarte APRN, C.N.P. Primary Care Provide r Encounter Details Date Type Department Care Team (Late st Contact Info) Description 01/16/2024 Orders Only [facility] PCP [facility] MNT Shanae Ugarte, ARRON, C.N.P. [address] [place] [phone] Diabetes Mellitus Type 2 With [...] documented as of this encounter Care Teams Governor Assembler Hydraulic Relationship Specialty Start Date End Date Shanae Ugarte APRN, C.N.P. [address] [place] [address] PCP - General 11/24/23 documented as of this encounter
--- OUTSIDE RECORDS SUMMARY | 2024-02-14 10:33 | XMS_ITS | Referral Summary ---
Author Organization [facility] Address [address] [place] [address] Care Team Providers Care Type Soldering Machine Tender Name Role Phone Shanae Ugarte APRN, C.N.P. Primary Care Provide r Source Comments Patient records contain information from all sites at [facility]. For routine questions regarding patient records, call [phone] during business hours, M-F 8:00 AM - 5:00 PM Central Time. Record requests for emergency care only can be directed to [phone] at any time.[facility] Encounters Date Type Department Care Team Description 01/16/2024 Orders Only [facility] PCP [facility] MNT Shanae Ugarte APRN, C.N.P. 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 11/27/2023 Refill Department of Family Medicine, [facility], in [address] [phone] Shanae Ugarte APRN, C.N.P. Med Refill from Last 3 Months Allergies Active Allergy Reactions Criticality Noted Date Comments Esomeprazole Magnesium Nausea Only 11/12/2012 INCREASED ACID Penicillins Hives (Reselect Reaction) 04/15/2014 Sxqirfa-Mgs-Trf Reductase Inhibitors Myalgia 04/15/2014 Medications Medication Sig [...] 810 capsule 3 10/11/2023 5 Active DME CPAPIndications:Hydrologic Modeler ea Sleep Obstructive DME Order 1 each [...] - MODE RNA (12 YEARS AND OLDER) [id number] 05/12/2023 SARS-COV-2 (COVID-19) - MODERNA(Discontinued) SARS-COV-2 (COVID-19) [...] 177 cm (5' 9.69) 05/31/2023 2:47 PM FLOATING LABOR GANG SUPERVISOR Body Mass Index 39.32 05/31/2023 2:47 PM FLOATING LABOR GANG SUPERVISOR Plan of Treatment Not on file Medical Devices Implanted Type Area Railroad Wheels And Axles Inspector Device Identifier Shelf Expiration Date Model / Serial / Lot Knee Implant- 0 Implanted:08/14 by Amrik Falcon M.D. (Quantity not on file) Knee Implant Knee Procedures Procedure Name Priority Date/Time Associated Diagnosis Comments HEMOGLOBIN A1C, B Routine 10/11/2023 7:1 2 PM CDT Diabetes Mellitus Type 2 With Diabetic Neuropathy (HCC) ALBUMIN, RANDOM, U Routine 05/31/2023 2:26 PM FLOATING LABOR GANG SUPERVISOR Diabetes Mellitus Type 2 With Diabetic Neuropathy Hyperglycemic (HCC) BASIC METABOLIC PANEL, S/P Routine 05/31/2023 2:22 PM FLOATING LABOR GANG SUPERVISOR Monitoring For Therapeutic Drug Therapy THYROID-STIMULATI NG [...] LAB BLOOD ADD-O N Performing Organization Address City/[facility]/ZIP Co de Phone Number [address] [address], [address] [address] * (ABNORMAL) Albumin, Random, Urine (05/31/2023 2:26 PM FLOATING LABOR GANG SUPERVISOR) Pathologist [facility] Microalbumin 53.8 mg/L 05/31/2023 2:48 PM FLOATING LABOR GANG SUPERVISOR CNFL Creatinine 115 mg/dL 05/31/2023 2:48 PM FLOATING LABOR GANG SUPERVISOR CNFL Albumin/Creatinin e Ratio 47(H) <17 mg/g 05/31/2023 2:48 PM FLOATING LABOR GANG SUPERVISOR CNFL Urine (Urine, Midstream) 05/31/2023 2:26 PM FLOATING LABOR GANG SUPERVISOR 05/31/2023 2:26 PM FLOATING LABOR GANG SUPERVISOR Soham James M.D., Ph.D. LAB URINE ORDER SREEKANTH Performing Organization Address City/[facility]/ZIP Co de Phone Number [address] [address], [address] [place] [address] * (ABNORMAL) Basic Metabolic Panel (05/31/2023 2:22 PM FLOATING LABOR GANG SUPERVISOR) Potassium, P 4.2 3.6 - 5.2 mmol/L 05/31/2023 2:47 PM FLOATING LABOR GANG SUPERVISOR CNFL Sodium, P 139 135 - 145 mmol/L 05/31/2023 2:47 PM FLOATING LABOR GANG SUPERVISOR CNFL Chloride, P 102 98 - 107 mmol/L 05/31/2023 2:47 PM FLOATING LABOR GANG SUPERVISOR CNFL Bicarbonate, P 26 22 - 29 mmol/L 05/31/2023 2:47 PM FLOATING LABOR GANG SUPERVISOR CNFL Anion Gap, P 11 7 - 15 05/31/2023 2:47 PM FLOATING LABOR GANG SUPERVISOR CNFL BUN (Blood Urea Nitrogen), P 26(H) 8 - 24 mg/dL 05/31/2023 2:47 PM FLOATING LABOR GANG SUPERVISOR CNFL Creatinine 1.62(H) 0.74 - 1.35 mg/dL 05/31/2023 2:47 PM FLOATING LABOR GANG SUPERVISOR CNFL Estimated GFR (eGFR) 44(L) >=60 mL/min/BSA 05/31/2023 2:47 PM FLOATING LABOR GANG SUPERVISOR CNFL Comment: Estimated GFR calculated using the 2020 CKD_EPI creatinine equation. Calcium, Total, P 9.1 8.8 - 10.2 mg/dL 05/31/2023 2:47 PM FLOATING LABOR GANG SUPERVISOR CNFL Glucose, P 293(H) 70 - 140 mg/dL 05/31/2023 2:47 PM FLOATING LABOR GANG SUPERVISOR CNFL Blood (Blood, Venous) 05/31/2023 2:22 PM FLOATING LABOR GANG SUPERVISOR 05/31/2023 2:23 PM FLOATING LABOR GANG SUPERVISOR Soham James M.D., Ph.D. LAB BLOOD ADD-O N [facility] [address] [place] [address], [place] CNFL [facility] in [address] [address] * S-TSH (Thyroid-Stimulating Hormone - Sensitive) (10/25/2021 10:43 AM CDT) Pathologist [facility] TSH, Sensitive 1.8 0.3 - 4.2 mIU/L 10/25/2021 11:15 AM CDT CNFL Blood (Blood, Venous) 10/25/2021 10:43 AM CDT 10/25/2021 10:47 AM CDT Soham James M.D., Ph.D. LAB BLOOD ADD-O N [facility] [address] [place] [address], [facility] CNFL [facility] in [address] [address] * [place] Aorta AAA Screening (05/05/2020 10:41 [...] S Nonreactive Nonreactive 10/09/2017 10:35 AM CDT [facility] Blood 10/06/2017 2:29 PM CDT 10/06/2017 9:44 PM CDT Narrative [facility] - 10/09/2017 10:35 AM CDT Specimen Information: Specimen ID: [id number] Specimen Type: Blood Specimen Collection Start Date: 10/06/2017 ??2:29 PM Specimen Received Date: 10/06/2017 ??9:44 PM Specimen ID: [id number] Specimen Type: Blood Specimen Collection Start Date: 10/06/2017 ??2:29 PM Specimen Received Date: 10/06/2017 ??9:44 PM Soham James M.D., Ph.D. LAB MICROBIOLOG Y - BLOOD ORDERABLES [facility] [address] [place] [address], [facility] from Last 3 Months or Most Recently Relevant to Health Maintenance Care Teams Type Soldering Machine Tender Relationship Specialty Start Date End Date Shanae Ugarte APRN, C.N.P. [address] [place] [phone] (work) [facility] - General 11/24/23
--- OUTSIDE RECORDS SUMMARY | 2024-02-14 10:33 | XMS_ITS | Encounter Summary ---
Author Organization [facility] Address [address] [place] [address] Care Team Providers Care Rug Weaver Name Role Phone Shanae Ugarte APRN, C.N.P. Primary Care Provide r Encounter Details Date Type Department Care Team (Late st Contact Info) Description 01/02/2024 Clinical Communication Department of Family Medicine, [facility], in [address] [phone] Shanae Ugarte APRN, C.N.P. [address] [place] [phone] Social History Tobacco Use Types [...] copy of this note was faxed to [facility] so that they would have all of the necessary information. documented in this encounter Plan of Treatment Not on file documented as of this encounter Visit Diagnoses Not on filedocumented in this encounter Additional Health Concerns Assessment Noted Time PHQ-9 Depression Total Score: 5 10/11/19 24 9:23 PM CDT documented as of this encounter Care Teams Rug Weaver Relationship Specialty Start Date End Date Shanae Ugarte APRN, C.N.P. [address] [place] [phone] PCP - General 11/24/23 documented as of this encounter
--- OUTSIDE RECORDS SUMMARY | 2024-02-14 10:33 | XMS_ITS | Encounter Summary ---
Author Organization [facility] Address [address] [place] [address] Care Team Providers Care Location Manager Name Role Phone Soham James M.D., Ph.D. Primary Care Provider Reason for Visit * Reason Comments Med Refill Encounter Details Date Type Department Care Team (Late st Contact Info) Description 09/14/2023 Refill Department of Family Medicine, [facility], in [address] [phone] Soham James M.D., Ph.D. [address] [place] [phone] Med Refill Social History Tobacco Use Types [...] Total Score: 3 11/22/20 23 3:22 PM PRINTING TABLE HAND documented as of this encounter Care Teams Location Manager Relationship Specialty Start Date End Date Soham James M.D., Ph.D. PCP - General 12/22/16 11/23/23 documented as of this encounter
--- OUTSIDE RECORDS SUMMARY | 2024-02-14 10:33 | XMS_ITS | Encounter Summary ---
Author Organization [facility] Address [address] [place] [address] Care Team Providers Care Mule Developer Name Role Phone Soham James MD Primary Care Provider [phone] [phone] Encounter Details Date Type Department Care Team (Late st Contact Info) Description [address] [facility] Podiatry [address] [place] [address] Piper Castanon, DPMikki, Podiatry/Foot and Ankle Surgery [address] [place], [place] [address] Social History Tobacco Use Types Packs/Day Years [...] referral we received from Dr. Soham James ([facility]) via fax this morning. Scheduled patient to see Dr. Castanon on June 20 in [place]. Patient requested the building address be sent to him via mail, so a letter was sent out. Patient was appreciative of the call. Dionte Rodrigez, Visit Glass Edger CTURAL STEEL WORKER HELPER documented in this encounter Plan of Treatment Not on file documented as of this encounter Visit Diagnoses Not on filedocumented in this encounter Care Teams Mule Developer Relationship Specialty Start Date End Date Soham James MD [facility] [address] [place] [address] PCP - General Family Practice 07/25/12 documented as of this encounter
--- OUTSIDE RECORDS SUMMARY | 2024-02-14 10:33 | XMS_ITS ---
Author Organization [facility] Address [address] [place] [address] Care Team Providers Care Trash Man Name Role Phone Unavailable Unavailable Unavailable Surgery Details Not on file Complications Check Surgery Details section. Procedure Estimated Blood Loss Check Surgery Details section. Procedure Findings Check Surgery Details section. Procedure Specimens Taken Check Surgery Details section.
--- OUTSIDE RECORDS SUMMARY | 2024-02-14 10:33 | XMS_ITS | Clinical Summary ---
Author Organization [facility] Address [address] [place] [address] Care Team Providers Care Clinical Implementation Specialist Name Role Phone Soham James MD Primary Care Provider [phone] [phone] Allergies Active Allergy Reactions Criticality Noted Date [...] Comments Blood Pressure 118/67 08/07/2018 9:20 AM WRAPPER HAND Pulse 64 08/07/2018 9:20 AM WRAPPER HAND Temperature 36.6 ??C (97.9 ??F) 08/21/2012 8:20 AM CS T Respiratory Rate 20 08/07/2018 9:30 AM WRAPPER HAND Oxygen Saturation 91% 08/07/2018 9:27 AM WRAPPER HAND Inhaled Oxygen Concentration - - Weight 124.7 kg (275 lb) 08/07/2018 7:52 AM WRAPPER HAND Height 177.8 cm (5' 10) 08/07/2018 7:52 AM WRAPPER HAND Body Mass Index 39.46 08/07/2018 7:52 AM WRAPPER HAND Plan of Treatment Health Maintenance Due Date [...] Diagnosis Comments COLONOSCOPY Routine 08/07/2018 8:13 AM WRAPPER HAND GLUCOSE BY METER Routine 08/21/2012 7:19 AM WRAPPER HAND from Last 3 Months or Most Recently Relevant to Health Maintenance Results * COLONOSCOPY (08/07/2018 8:13 AM WRAPPER HAND) [facility] COLONOSCOPY [facility] Endoscopy Department ___ Patient Name: Shin Best ? Procedure Date: 08/07/2018 8:13 AM ? Date of : 1945 ? Admit Type: Outpatient Age: 73 ? Room: 3 Note Status: Finalized ?Attending MD: Abraham Milner , Total Sedation Time: 41 mins of continuous bedside 1:1 Instrument Name: 325 [id number] AdultColonoscope ___ Procedure: ?Colonoscopy Indications: ?Screening for [...] Procedure Code(s): ? --- Professional --- ? 69777, Colonoscopy, flexible; with removal of tumor(s), polyp(s), or ? other lesion(s) by snare technique Diagnosis Code(s): ? --- Professional --- ? Z12.11, Encounter for screening for malignant neoplasm of colon ? K62.1, Rectal polyp CPT copyright 2017 [employer] [employer]. All rights reserved. The codes documented in this report are preliminary and upon lawyer criminal review may be revised to meet current compliance requirements. Abraham Milner, 08/07/2018 9:10:30 AM I was physically present for the entire viewing portion of the exam. Abraham Milner Number of Addenda: 0 Note Initiated On: 08/07/2018 8:13 AM MRN: ?[id number] Procedure Date: ? 08/07/2018 8:13:49 AM Scope Withdrawal Time: 0 hours 13 minutes 27 seconds Total Procedure Duration: 0 hours 40 minutes 58 seconds Estimated Blood Loss: ? Scope In: 8:20:39 AM Scope Out: 9:01:37 AM RADIOLOGY RESULTS 08/07/2018 8:13 AM WRAPPER HAND Soham James MD PROCEDURES RADIOLOGY RESULTS * Glucose by meter (08/21/2012 7:19 AM WRAPPER HAND) Glucose 79 60 - 99 mg/dL POINT OF CARE TEST, GLUCOSE Comment:Dr/RN Notified 08/21/2012 7:19 AM WRAPPER HAND 08/21/2012 7:25 AM WRAPPER HAND Stacy Ayers MD LAB - BEAKER POCT Performing Organization Address City/[facility] Co de Phone Number POINT OF CARE TEST, GLUCOSE from Last 3 Months or Most Recently Relevant to Health Maintenance Care Teams Clinical Implementation Specialist Relationship Specialty Start Date End Date Soham James MD [facility] [address] [place] [address] PCP - General Family Practice 07/25/12
== END 2024-02-14 10:28 | disposition home or self-care (01) ==
LOC: WOUND 10:27
PROVIDERS: PCP Family Medicine; Visit Provider Surgery
DX: E11.621 Type 2 diabetes mellitus with foot ulcer (principal); I89.0 Lymphedema, not elsewhere classified; L97.518 Non-pressure chronic ulcer of other part of right foot with other specified severity; Z79.4 Long term (current) use of insulin; Z79.84 Long term (current) use of oral hypoglycemic drugs
CPT/HCPCS: G0463

== ENCOUNTER 2024-02-28 10:27 | Outpatient (CLI) | payer MEDICARE, BC, SELFPAY ==
--- OUTSIDE RECORDS SUMMARY | 2024-02-28 10:30 | XMS_ITS | Encounter Summary ---
Author Organization [facility] Address [address] [place] [address] Care Team Providers Care Electronic Scale Subassembler Name Role Phone Shanae Ugarte APRN, C.N.P. Primary Care Provide r Reason for Visit * Reason Comments Med Refill Encounter Details Date Type Department Care Team (Late st Contact Info) Description 11/27/2023 Refill Department of Family Medicine, [facility], in [address] [phone] Shanae Ugarte APRN, C.N.P. [address] [place] [phone] Med Refill Social History Tobacco Use Types [...] Date Recorded Dental: Regular Dentist Unknown 08/27/19 Sex and Gender Information Value Date Recorded [...] documented as of this encounter Care Teams Electronic Scale Subassembler Relationship Specialty Start Date End Date Shanae Ugarte APRN, C.N.P. [address] [place] [address] PCP - General 11/24/23 documented as of this encounter
--- OUTSIDE RECORDS SUMMARY | 2024-02-28 10:30 | XMS_ITS | Clinical Summary ---
Author Organization [facility] Address [address] [place] [address] Care Team Providers Care Cargo Checker Name Role Phone Shanae Ugarte APRN, C.N.P. Primary Care Provide r Source Comments Patient records contain information from all sites at [facility]. For routine questions regarding patient records, call [phone] during business hours, M-F 8:00 AM - 5:00 PM Central Time. Record requests for emergency care only can be directed to [phone] at any time.[facility] Allergies Active Allergy Reactions Criticality Noted Date Comments Esomeprazole Magnesium Nausea Only 11/12/2012 INCREASED ACID Penicillins Hives (Reselect Reaction) 04/15/2014 Dzapcxf-Iqx-Zxd Reductase Inhibitors Myalgia 04/15/2014 Medications Medication Sig [...] 810 capsule 3 10/11/2023 5 Active DME CPAPIndications:Timber Sprinkler ea Sleep Obstructive DME Order 1 each [...] Encounters Date Type Department Care Team Description 02/26/2024 Refill Department of Family Medicine, [facility], in [address] [address] Shanae Ugarte APRN, C.N.P. Med Refill 01/16/2024 Orders Only [facility] MNT Shanae Ugarte APRN, C.N.P. 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 from Last 3 Months Immunizations Name Administration Dates Next Due H1N1 All Forms 08/10/2009 Influenza Split Preservative Free ID 05/15/2012 Influenza TIV (IM) 08/25/2006 Influenza high dose QV(65 years or older) (PF) 1 ,04/20/2020 Influenza, Quadrivalent, Adjuvanted, Preservativ e Free 05/12/2023 Influenza, Seasonal, Injectable 08/25/2006 PCV13 08/18/2008 PPSV23 12/04/2018 SARS-COV-2 (COVID-19) - MODE RNA (12 YEARS AND OLDER) [id number] 05/12/2023 SARS-COV-2 (COVID-19) - MODERNA(Discontinued) SARS-COV-2 (COVID-19) [...] 177 cm (5' 9.69) 05/31/2023 2:47 PM TNT LINE SUPERVISOR Body Mass Index 39.32 05/31/2023 2:47 PM TNT LINE SUPERVISOR Plan of Treatment Health Maintenance Due Date [...] 06/19/2024 06/19/2023, 10/25/2021, 09/15/2020, Additional history exists Diabetic Office Visit with F oot Exam 10/10/2024 10/11/2023, 10/11/2023, 07/12/2023, Additional history exists Office Visit for Blood Press ure Check / Re-check 10/10/2024 10/11/2023 Creatinine Level (Kidney Fun ction Test) 02/04/2025 02/05/2024, 07/04/2023, 07/03/2023, Additional history exists Potassium Level 02/04/2025 02/05/2024, 06/10, 07/03/2023, Additional history exists Sodium Level 02/04/2025 02/05/2024, 06/10, 07/04/2023, Additional history exists Hepatitis C Screening Completed 10/06/2017 Colonoscopy Discontinued 08/07/2018, 08/13/2007 Colorectal Cancer Screening Discontinued Pneumococcal vaccine (65+ years) Completed 12/05/19 19, 08/18/2008 Abdominal Aortic Aneurysm (A AA) Screen Discontinued 05/05/2020 Fall Risk Screen (Annual) Completed 07/12/2023 Visit: Chronic Disease, age 18+ Discontinued 4, 07/12/2023 CT Colonography Discontinued Cologuard Discontinued FIT Discontinued Medical Devices Implanted Type Area Water Reclamation Systems Operator Device Identifier Shelf Expiration Date Model / Serial / Lot Knee Implant- 0 Implanted:08/14 by Amrik Falcon M.D. (Quantity not on file) Knee Implant Knee Procedures Procedure Name Priority Date/Time Associated Diagnosis Comments HEMOGLOBIN A1C, B Routine 10/11/2023 7:1 2 PM CDT Diabetes Mellitus Type 2 With Diabetic Neuropathy (HCC) ALBUMIN, RANDOM, U Routine 05/31/2023 2:26 PM TNT LINE SUPERVISOR Diabetes Mellitus Type 2 With Diabetic Neuropathy Hyperglycemic (HCC) BASIC METABOLIC PANEL, S/P Routine 05/31/2023 2:22 PM TNT LINE SUPERVISOR Monitoring For Therapeutic Drug Therapy THYROID-STIMULATI [...] LAB BLOOD ADD-O N Performing Organization Address [facility]/State/[facility] Co de Phone Number [facility] [address] [place] [address], [facility] [place] [phone] * (ABNORMAL) Albumin, Random, Urine (05/31/2023 2:26 PM TNT LINE SUPERVISOR) Microalbumin 53.8 mg/L 05/31/2023 2:48 PM TNT LINE SUPERVISOR CNFL Creatinine 115 mg/dL 05/31/2023 2:48 PM TNT LINE SUPERVISOR CNFL Albumin/Creatinin e Ratio 47(H) <17 mg/g 05/31/2023 2:48 PM TNT LINE SUPERVISOR CNFL Urine (Urine, Midstream) 05/31/2023 2:26 PM TNT LINE SUPERVISOR 05/31/2023 2:26 PM TNT LINE SUPERVISOR Soham James M.D., Ph.D. LAB URINE ORDER SREEKANTH Performing Organization Address City/[facility]/ZIP Co de Phone Number [facility] [address] [place] [address], [facility] CNFL [address] [address] * S-TSH (Thyroid-Stimulating Hormone - Sensitive) (10/25/2021 10:43 AM CDT) TSH, Sensitive 1.8 0.3 - 4.2 mIU/L 10/25/2021 11:15 AM CDT CNFL Blood (Blood, Venous) 10/25/2021 10:43 AM CDT 10/25/2021 10:47 AM CDT Soham James M.D., Ph.D. LAB BLOOD ADD-O N Performing Organization Address City/[facility]/ZIP Co de Phone Number [facility] [address] [place] [address], [facility] [place] [address] * US Aorta AAA Screening (05/05/2020 10:41 [...] in size and negative for aneurysm. Soham Jamse M.D., Ph.D. IMG US PROCEDUR ES * HCV AB Scrn w/Reflex to HCV PCR, S (10/06/2017 2:29 PM CDT) HCV Ab Screen, S Nonreactive Nonreactive 10/09/2017 10:35 AM CDT [facility] Blood 10/06/2017 2:29 PM CDT 10/06/2017 9:44 PM CDT Narrative [facility] - 10/09/2017 10:35 AM CDT Specimen Information: Specimen ID: [id number] Specimen Type: Blood Specimen Collection Start Date: 10/06/2017 ??2:29 PM Specimen Received Date: 10/06/2017 ??9:44 PM Specimen ID: [id number] Specimen Type: Blood Specimen Collection Start Date: 10/06/2017 ??2:29 PM Specimen Received Date: 10/06/2017 ??9:44 PM Soham James M.D., Ph.D. LAB MICROBIOLOG Y - BLOOD ORDERABLES [facility] [address] [place] [address], [facility] from Last 3 Months or Most Recently Relevant to Health Maintenance Care Teams Cargo Checker Relationship Specialty Start Date End Date Shanae Ugarte APRN, C.N.P. [facility] [place] [address] PCP - General 11/24/23
--- OUTSIDE RECORDS SUMMARY | 2024-02-28 10:30 | XMS_ITS | Encounter Summary ---
Author Organization [facility] Address [address] [place] [address] Care Team Providers Care Rug Cutter Name Role Phone Shanae Ugarte APRN, C.N.P. Primary Care Provide r Encounter Details Date Type Department Care Team (Late st Contact Info) Description 01/02/2024 Clinical Communication Department of Family Medicine, [facility], in [address] [address] Shanae Ugarte APRN, C.N.P. [address] [place] [address] Social History Tobacco Use Types [...] copy of this note was faxed to [facility] so that they would have all of the necessary information. documented in this encounter Plan of Treatment Not on file documented as of this encounter Visit Diagnoses Not on filedocumented in this encounter Additional Health Concerns Assessment Noted Time PHQ-9 Depression Total Score: 5 10/11/19 24 9:23 PM CDT documented as of this encounter Care Teams Rug Cutter Relationship Specialty Start Date End Date Shanae Ugarte APRN, C.N.P. [address] [place] [address] PCP - General 11/24/23 documented as of this encounter
--- OUTSIDE RECORDS SUMMARY | 2024-02-28 10:30 | XMS_ITS | Clinical Summary ---
Author Organization [place] Address [address] [place] [address] Care Team Providers Care Framing And Hanging Name Role Phone Soham James MD Primary Care Provider [phone] Allergies Active Allergy Reactions Criticality Noted Date [...] Comments Blood Pressure 118/67 08/07/2018 9:20 AM LEAN MANUFACTURING COORDINATOR Pulse 64 08/07/2018 9:20 AM LEAN MANUFACTURING COORDINATOR Temperature 36.6 ??C (97.9 ??F) 08/21/2012 8:20 AM CS T Respiratory Rate 20 08/07/2018 9:30 AM LEAN MANUFACTURING COORDINATOR Oxygen Saturation 91% 08/07/2018 9:27 AM LEAN MANUFACTURING COORDINATOR Inhaled Oxygen Concentration - - Weight 124.7 kg (275 lb) 08/07/2018 7:52 AM LEAN MANUFACTURING COORDINATOR Height 177.8 cm (5' 10) 08/07/2018 7:52 AM LEAN MANUFACTURING COORDINATOR Body Mass Index 39.46 08/07/2018 7:52 AM LEAN MANUFACTURING COORDINATOR Plan of Treatment Health Maintenance Due Date [...] Diagnosis Comments COLONOSCOPY Routine 08/07/2018 8:13 AM LEAN MANUFACTURING COORDINATOR GLUCOSE BY METER Routine 08/21/2012 7:19 AM LEAN MANUFACTURING COORDINATOR from Last 3 Months or Most Recently Relevant to Health Maintenance Results * COLONOSCOPY (08/07/2018 8:13 AM LEAN MANUFACTURING COORDINATOR) [facility] COLONOSCOPY [facility] Endoscopy Department ___ Patient Name: Shin Best ? Procedure Date: 08/07/2018 8:13 AM ? Date of : 1945 ? Admit Type: Outpatient Age: 73 ? Room: 3 Note Status: Finalized ?Attending MD: Abraham Milner , Total Sedation Time: 41 mins of continuous bedside 1:1 Instrument Name: 325 [id number] AdultColonoscope ___ Procedure: ?Colonoscopy Indications: ?Screening for [...] Procedure Code(s): ? --- Professional --- ? 44168, Colonoscopy, flexible; with removal of tumor(s), polyp(s), or ? other lesion(s) by snare technique Diagnosis Code(s): ? --- Professional --- ? Z12.11, Encounter for screening for malignant neoplasm of colon ? K62.1, Rectal polyp CPT copyright 2017 [employer]. All rights reserved. The codes documented in this report are preliminary and upon lean manufacturing engineer review may be revised to meet current compliance requirements. Abraham Milner, 08/07/2018 9:10:30 AM I was physically present for the entire viewing portion of the exam. Abraham Milner Number of Addenda: 0 Note Initiated On: 08/07/2018 8:13 AM MRN: ?[id number] Procedure Date: ? 08/07/2018 8:13:49 AM Scope Withdrawal Time: 0 hours 13 minutes 27 seconds Total Procedure Duration: 0 hours 40 minutes 58 seconds Estimated Blood Loss: ? Scope In: 8:20:39 AM Scope Out: 9:01:37 AM RADIOLOGY RESULTS 08/07/2018 8:13 AM LEAN MANUFACTURING COORDINATOR Soham James MD PROCEDURES RADIOLOGY RESULTS * Glucose by meter (08/21/2012 7:19 AM LEAN MANUFACTURING COORDINATOR) Glucose 79 60 - 99 mg/dL POINT OF CARE TEST, GLUCOSE Comment:Dr/RN Notified 08/21/2012 7:19 AM LEAN MANUFACTURING COORDINATOR 08/21/2012 7:25 AM LEAN MANUFACTURING COORDINATOR Stacy Ayers MD LAB - BEAKER POCT Performing Organization Address City/[facility] Co de Phone Number POINT OF CARE TEST, GLUCOSE from Last 3 Months or Most Recently Relevant to Health Maintenance Care Teams Framing And Hanging Relationship Specialty Start Date End Date Soham James MD [facility] [address] [place] [address] PCP - General Family Practice 07/25/12
--- OUTSIDE RECORDS SUMMARY | 2024-02-28 10:30 | XMS_ITS | Clinical Summary ---
Author Organization [facility] Address [place], [place] [address] Care Team Providers Care Human Resources Hr Generalist Name Role Phone Hao Drew MD Unavailable [phone] Desiree Black MD Primary Care Provider + Allergies Active Allergy Reactions Criticality Noted Date Comments Esomeprazole Magnesium Nausea Only 11/12/2012 INCREASED ACID Penicillins Hives 04/15/2014 Nzrgldk-Nnx-Wpe Reductase Inhibitors Nausea Only,Myalgia 04/15/2014 Medications Medication [...] 05/05/2015 Hyperlipidemia 05/05/2015 CAD (coronary artery disease), igiugig coronary a rtery 10/30/2014 Systolic murmur 09/29/2014 [...] Type Department Care Team Description 02/12/2024 Telephone [facility] [address] [facility] [address] [place] [address] Hao Drew MD Results (labs) 02/05/2024 4:40 PM CDT Orders Only [facility] [address] [place] [address] Lab, Appv Lab 02/05/2024 4:00 PM CDT Office Visit 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 DRIVER Respiratory Rate 16 02/05/2024 4:04 PM CDT Oxygen Saturation 97% 02/05/2024 4:04 PM CDT Inhaled Oxygen Concentration - - Weight 114.6 kg (252 lb 9.6 oz) 02/05/2024 4:04 PM CDT Height 180.3 cm (5' 11) 02/05/2024 4:04 PM CDT Body Mass Index 35.23 02/05/2024 4:04 PM CDT Plan of Treatment Upcoming Encounters Date Type Department Care Team (Late st Contact Info) Description 03/12/2024 11:10 AM CDT Orders Only [facility] [address] [place] [address] Lab, Appv Health Maintenance Due Date Last Done Comments [...] 9, 08/18/2008 Medical Devices Implanted Type Area Computer Terminal Operator Device Identifier Shelf Expiration Date Model / Serial / Lot Cmnt Bone Simplex Hv Gentamicin - [id number] Implanted:Qty: 2 on 04/28/2014 by Amrik Falcon MD at [facility] Left: Knee [employer] 11/06/2014 6195-1-001 # / / [id number] Patella [id number] Triathlon Asymmetric X3 - [id number] Implanted:Qty: 1 on 04/28/2014 by Amrik Falcon MD at [facility] Left: Knee [employer] 02/06/2019 5551-G-350 # / / [id number] Fem Lt Sz7 Triathlon Post Stbznon Pors - [id number] Implanted:Qty: 1 on 04/28/2014 by Amrik Falcon MD at [facility] Left: Knee [employer] 02/06/2018 5515-F-701 # / / [id number] Baseplate Tib Sz6 Triathlon Pe - [id number] Implanted:Qty: 1 on 04/28/2014 by Amrik Falcon MD at [facility] Left: Knee [employer] 12/07/2018 5521-B-600 # / / [id number] Insert Knee Sz6 11mm Triathlonpost Stbz X3 - [id number] Implanted:Qty: 1 on 04/28/2014 by Amrik Falcon MD at [facility] Left: Knee [employer] 02/06/2019 5532-G-611 # / / [id number] Triathlon X3 Asymmetric Patella [id number] - [id number] Implanted:Qty: 1 on 08/14/2019 by Amrik Falcon MD at [facility] Right: Knee [employer] 02/19/2024 5551-G-381 -E / / [id number] Triathlon X3 Tibial Bearing Insert Cs Valery 5 Typ Cs Thkns 11mm - [id number] Implanted:Qty: 1 on 08/14/2019 by Amrik Falcon MD at [facility] Right: Knee [employer] 03/24/2024 5531-G-511 -E / / [id number] Cmnt Bone Simplex Hv - [id number] Implanted:Qty: 1 on 08/14/2019 by Amrik Falcon MD at [facility] Right: Knee [employer] 12/07/2020 6194-1-001 # / / [id number] Cmnt Bone Simplex Hv Gentamicin - [id number] Implanted:Qty: 1 on 08/14/2019 by Amrik Falcon MD at [facility] Right: Knee [employer] 06/08/2020 6195-1-001 # / / [id number] Fem Rt Sz6 Triathlon Cruc Ret Co Cr - [id number] Implanted:Qty: 1 on 08/14/2019 by Amrik Falcon MD at [facility] Right: Knee [employer] 01/11/2024 5510-F-602 # / / [id number] Baseplate Tib Sz5 Triathlon Pe - [id number] Implanted:Qty: 1 on 08/14/2019 by Amrik Falcon MD at [facility] Right: Knee [employer] 04/17/2024 [...] - 145 mmol/L 02/06/2024 9:25 AM CDT [facility] POTASSIUM 4.3 3.5 - 5.1 mmol/L 02/06/2024 9:25 AM CDT [facility] CHLORIDE 99 98 - 107 mmol/L 02/06/2024 9:25 AM CDT [facility] CO2,TOTAL 27 22 - 29 mmol/L 02/06/2024 9:25 AM CDT [facility] ANION GAP 13 5 - 18 02/06/2024 9:25 AM CDT [facility] GLUCOSE 156(H) 70 - 99 mg/dL 02/06/2024 9:25 AM CDT [facility] CALCIUM 10.1 8.8 - 10.2 mg/dL 02/06/2024 9:25 AM CDT [facility] BUN 36(H) 8 - 23 mg/dL 02/06/2024 9:25 AM CDT [facility] CREATININE 2.09(H) 0.70 - 1.20 mg/dL 02/06/2024 9:25 AM T [facility] BUN/CREAT RATIO 17 10 - 20 9:25 AM CDT [facility] eGFR 32(L) >90 mL/min/1.7 3m2 02/06/2024 9:25 AM T [facility] Comment:As of 2021, eG [...] 4:41 PM CDT Hao Drew MD CHEMISTRY [facility] [address] [place] [address], from Last 3 Months Advance Directives * [...] 11:50 PM 08/09/2018 3:08 PM Care Teams Human Resources Hr Generalist Relationship Specialty Start Date End Date Desiree Black MD [address] [place] [address] PCP - General Family Practice 02/05/24 Hao Drew MD [address] [place] [address] [address] [place] [address] Cardiology Cardiovascular Disease 12/30/19
--- OUTSIDE RECORDS SUMMARY | 2024-02-28 10:30 | XMS_ITS | Encounter Summary ---
Author Organization [facility] Address [address] [place] [address] Care Team Providers Care Medical Scheduler Name Role Phone Shanae Ugarte APRN, C.N.P. Primary Care Provide r Reason for Visit * Reason Comments Med Refill Encounter Details Date Type Department Care Team (Late st Contact Info) Description 02/26/2024 Refill Department of Family Medicine, [facility], in [address] [address] Shanae Ugarte APRN, C.N.P. [address] [place] [phone] Med Refill Social History Tobacco Use Types [...] encounter Miscellaneous Notes * Telephone Encounter - Quincy Thompson - 02/26/2024 9:17 AM CDT Nurse review: Med Refill Team is unable to forward request to provider. Discrepancy: Verification Required. Medication Discontinued. Primary Provider: Shanae Ugarte APRN, C.N.P. Requested Prescriptions Pending Prescriptions Disp Refills metoprolol succinate (Toprol XL) 25 mg 24 hr tablet 90 tablet 11 Sig: Take 1 tablet (25 mg total) by mouth daily. documented in this encounter Plan of Treatment Not on file documented as of this encounter Visit Diagnoses Not on filedocumented in this encounter Additional Health Concerns Assessment Noted Time PHQ-9 Depression Total Score: 5 10/11/19 24 9:23 PM CDT documented as of this encounter Care Teams Medical Scheduler Relationship Specialty Start Date End Date Shanae Ugarte APRN, C.N.P. [address] [place] [address] PCP - General 11/24/23 documented as of this encounter
--- OUTSIDE RECORDS SUMMARY | 2024-02-28 10:30 | XMS_ITS | Encounter Summary ---
Author Organization [facility] Address [address] [place] [address] Care Team Providers Care Sales And Marketing Engineer Name Role Phone Shanae Ugarte APRN, C.N.P. Primary Care Provide r Encounter Details Date Type Department Care Team (Late st Contact Info) Description 01/16/2024 Orders Only [facility] P[facility] MNT Shanae Ugarte, ARRON, C.N.P. [address] [place] [address] Diabetes Mellitus Type 2 With [...] as of this encounter Care Teams Sales And Marketing Engineer Relationship Specialty Start Date End Date Shanae Ugarte APRN, C.N.P. [address] [place] [address] PCP - General 11/24/23 documented as of this encounter
--- OUTSIDE RECORDS SUMMARY | 2024-02-28 10:30 | XMS_ITS | Encounter Summary ---
Author Organization [place] Address [address] [place] [address] Care Team Providers Care Cloth Washer Back Tender Name Role Phone Soham James MD Primary Care Provider [phone] Encounter Details Date Type Department Care Team (Late st Contact Info) Description 2023 Telephone [facility] Podiatry [address] [place] [address] Piper Castanon, DPMikki, Podiatry/Foot and Ankle Surgery [address] [place], [place] [address] Social History Tobacco Use Types Packs/Day Years [...] referral we received from Dr. Soham James ([facility]) via fax this morning. Scheduled patient to see Dr. Castanon on June 20 in [place]. Patient requested the building address be sent to him via mail, so a letter was sent out. Patient was appreciative of the call. Dionte Rodrigez, Visit Personnel Officer ER HAND documented in this encounter Plan of Treatment Not on file documented as of this encounter Visit Diagnoses Not on filedocumented in this encounter Care Teams Cloth Washer Back Tender Relationship Specialty Start Date End Date Soham James MD [facility] [address] [place] [address] PCP - General Family Practice 07/25/12 documented as of this encounter
--- OUTSIDE RECORDS SUMMARY | 2024-02-28 10:30 | XMS_ITS | Referral Summary ---
Author Organization [facility] Address [address] [place] [address] Care Team Providers Care Branch Lending Manager Name Role Phone Soham James MD Primary Care Provider [phone] Allergies Active Allergy Reactions Criticality Noted Date [...] Comments Blood Pressure 118/67 08/07/2018 9:20 AM PATENT AGENT Pulse 64 08/07/2018 9:20 AM PATENT AGENT Temperature 36.6 ??C (97.9 ??F) 08/21/2012 8:20 AM CS T Respiratory Rate 20 08/07/2018 9:30 AM PATENT AGENT Oxygen Saturation 91% 08/07/2018 9:27 AM PATENT AGENT Inhaled Oxygen Concentration - - Weight 124.7 kg (275 lb) 08/07/2018 7:52 AM PATENT AGENT Height 177.8 cm (5' 10) 08/07/2018 7:52 AM PATENT AGENT Body Mass Index 39.46 08/07/2018 7:52 AM PATENT AGENT Plan of Treatment Not on file Procedures Procedure Name Priority Date/Time Associated Diagnosis Comments COLONOSCOPY Routine 08/07/2018 8:13 AM PATENT AGENT GLUCOSE BY METER Routine 08/21/2012 7:19 AM PATENT AGENT from Last 3 Months or Most Recently Relevant to Health Maintenance Results * COLONOSCOPY (08/07/2018 8:13 AM PATENT AGENT) [facility] COLONOSCOPY [facility] Endoscopy Department ___ Patient Name: Shin Best ? Procedure Date: 08/07/2018 8:13 AM ? Date of : 1945 ? Admit Type: Outpatient Age: 73 ? Room: 3 Note Status: Finalized ?Attending MD: Abraham Milner , Total Sedation Time: 41 mins of continuous bedside 1:1 Instrument Name: 325 CF-[id number] AdultColonoscope ___ Procedure: ?Colonoscopy Indications: ?Screening for [...] Procedure Code(s): ? --- Professional --- ? 70939, Colonoscopy, flexible; with removal of tumor(s), polyp(s), or ? other lesion(s) by snare technique Diagnosis Code(s): ? --- Professional --- ? Z12.11, Encounter for screening for malignant neoplasm of colon ? K62.1, Rectal polyp CPT copyright 2017 [employer]. All rights reserved. The codes documented in this report are preliminary and upon assistant coach review may be revised to meet current compliance requirements. Abraham Milner, 08/07/2018 9:10:30 AM I was physically present for the entire viewing portion of the exam. Abraham Milner Number of Addenda: 0 Note Initiated On: 08/07/2018 8:13 AM MRN: ?[id number] Procedure Date: ? 08/07/2018 8:13:49 AM Scope Withdrawal Time: 0 hours 13 minutes 27 seconds Total Procedure Duration: 0 hours 40 minutes 58 seconds Estimated Blood Loss: ? Scope In: 8:20:39 AM Scope Out: 9:01:37 AM RADIOLOGY RESULTS 08/07/2018 8:13 AM PATENT AGENT Soham James MD PROCEDURES RADIOLOGY RESULTS * Glucose by meter (08/21/2012 7:19 AM PATENT AGENT) Glucose 79 60 - 99 mg/dL POINT OF CARE TEST, GLUCOSE Comment:Dr/RN Notified 08/21/2012 7:19 AM PATENT AGENT 08/21/2012 7:25 AM PATENT AGENT Stacy Ayers MD [facility] POCT POINT OF CARE TEST, GLUCOSE from Last 3 Months or Most Recently Relevant to Health Maintenance Care Teams Branch Lending Manager Relationship Specialty Start Date End Date Soham James MD [facility] [address] [place] [address] PCP - General Family Practice 07/25/12
--- OUTSIDE RECORDS SUMMARY | 2024-02-28 10:30 | XMS_ITS | Referral Summary ---
Author Organization [facility] Address [address] [place] [address] Care Team Providers Care Global Implementation Manager Name Role Phone Shanae Ugarte APRN, C.N.P. Primary Care Provide r Source Comments Patient records contain information from all sites at [facility]. For routine questions regarding patient records, call [phone] during business hours, M-F 8:00 AM - 5:00 PM Central Time. Record requests for emergency care only can be directed to [phone] at any time.[facility] Encounters Date Type Department Care Team Description 02/26/2024 Refill Department of Family Medicine, [facility], in [address] [phone] Shanae Ugarte APRN, C.N.P. Med Refill 01/16/2024 Orders Only [facility] Shanae Ugarte APRN, C.N.P. 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 from Last 3 Months Allergies Active Allergy Reactions Criticality Noted Date Comments Esomeprazole Magnesium Nausea Only 11/12/2012 INCREASED ACID Penicillins Hives (Reselect Reaction) 04/15/2014 Yobgwyk-Hxg-Fgj Reductase Inhibitors Myalgia 04/15/2014 Medications Medication Sig [...] 810 capsule 3 10/11/2023 5 Active DME CPAPIndications:Rail Specialist ea Sleep Obstructive DME Order 1 [...] - MODE RNA (12 YEARS AND OLDER) [id number] 05/12/2023 SARS-COV-2 (COVID-19) - MODERNA(Discontinued) SARS-COV-2 (COVID-19) [...] 177 cm (5' 9.69) 05/31/2023 2:47 PM RAG BOILER Body Mass Index 39.32 05/31/2023 2:47 PM RAG BOILER Plan of Treatment Not on file Medical Devices Implanted Type Area Erp Analyst Device Identifier Shelf Expiration Date Model / Serial / Lot Knee Implant- 0 Implanted:08/14 by Amrik Falcon M.D. (Quantity not on file) Knee Implant Knee Procedures Procedure Name Priority Date/Time Associated Diagnosis Comments HEMOGLOBIN A1C, B Routine 10/11/2023 7:1 2 PM CDT Diabetes Mellitus Type 2 With Diabetic Neuropathy (HCC) ALBUMIN, RANDOM, U Routine 05/31/2023 2:26 PM RAG BOILER Diabetes Mellitus Type 2 With Diabetic Neuropathy Hyperglycemic (HCC) BASIC METABOLIC PANEL, S/P Routine 05/31/2023 2:22 PM RAG BOILER Monitoring For Therapeutic Drug Therapy THYROID-STIMULATI NG [...] LAB BLOOD ADD-O N Performing Organization Address City/[facility]/ZIP Co de Phone Number [address] [address], [address] [address] * (ABNORMAL) Albumin, Random, Urine (05/31/2023 2:26 PM RAG BOILER) Pathologist [facility] Microalbumin 53.8 mg/L 05/31/2023 2:48 PM RAG BOILER CNFL Creatinine 115 mg/dL 05/31/2023 2:48 PM RAG BOILER CNFL Albumin/Creatinin e Ratio 47(H) <17 mg/g 05/31/2023 2:48 PM RAG BOILER CNFL Urine (Urine, Midstream) 05/31/2023 2:26 PM RAG BOILER 05/31/2023 2:26 PM RAG BOILER Soham James M.D., Ph.D. LAB URINE ORDER SREEKANTH Performing Organization Address City/[facility]/ZIP Co de Phone Number [address] [address], [address] [place] [address] * S-TSH (Thyroid-Stimulating Hormone - Sensitive) (10/25/2021 10:43 AM CDT) TSH, Sensitive 1.8 0.3 - 4.2 mIU/L 10/25/2021 11:15 AM CDT CNFL Blood (Blood, Venous) 10/25/2021 10:43 AM CDT 10/25/2021 10:47 AM CDT Soham James M.D., Ph.D. LAB BLOOD ADD-O N [facility] [address] [place] [id number], [facility] CNFL [employer] in [address] [address] * US Aorta AAA Screening (05/05/2020 10:41 [...] 10/09/2017 10:35 AM CDT [facility] Blood 10/06/2017 2:29 PM CDT 10/06/2017 9:44 PM CDT Narrative [facility] - 10/09/2017 10:35 AM CDT Specimen Information: Specimen ID: [id number] Specimen Type: Blood Specimen Collection Start Date: 10/06/2017 ??2:29 PM Specimen Received Date: 10/06/2017 ??9:44 PM Specimen ID: [id number] Specimen Type: Blood Specimen Collection Start Date: 10/06/2017 ??2:29 PM Specimen Received Date: 10/06/2017 ??9:44 PM Soham James M.D., Ph.D. LAB MICROBIOLOG Y - BLOOD ORDERABLES [facility] [address] [place] [address], [facility] from Last 3 Months or Most Recently Relevant to Health Maintenance Care Teams Global Implementation Manager Relationship Specialty Start Date End Date Shanae Ugarte APRN, C.N.P. [address] [place] [phone] PCP - General 11/24/23
--- OUTSIDE RECORDS SUMMARY | 2024-02-28 10:30 | XMS_ITS ---
Author Organization [facility] Address [address] [place] [address] Care Team Providers Care Charcoal Unloader Name Role Phone Unavailable Unavailable Unavailable Surgery Details Not on file Complications Check Surgery Details section. Procedure Estimated Blood Loss Check Surgery Details section. Procedure Findings Check Surgery Details section. Procedure Specimens Taken Check Surgery Details section.
== END 2024-02-28 10:28 | disposition home or self-care (01) ==
LOC: WOUND 10:27
PROVIDERS: PCP Family Medicine; Visit Provider Surgery
DX: E11.621 Type 2 diabetes mellitus with foot ulcer (principal); I87.2 Venous insufficiency (chronic) (peripheral); L97.512 Non-pressure chronic ulcer of other part of right foot with fat layer exposed; Z79.4 Long term (current) use of insulin
CPT/HCPCS: 97597

== ENCOUNTER 2024-03-04 10:09 | Outpatient (CLI) | payer MEDICARE, BC, SELFPAY | END 2024-03-04 10:10 | disposition home or self-care (01) | LOC: NFLDREF 03-08 00:58 | PROVIDERS: PCP Family Medicine; Referring Provider Family Medicine; Visit Provider Family Medicine | DX: E11.40 Type 2 diabetes mellitus with diabetic neuropathy, unspecified (principal); I10 Essential (primary) hypertension; Z79.4 Long term (current) use of insulin | CPT/HCPCS: 80053; 82043; 82570 ==

== ENCOUNTER 2024-03-06 10:27 | Outpatient (CLI) | payer MEDICARE, BC, SELFPAY | END 2024-03-06 10:28 | disposition home or self-care (01) | LOC: WOUND 10:28 | PROVIDERS: PCP Family Medicine; Visit Provider Surgery | DX: S81.801A Unspecified open wound, right lower leg, initial encounter (principal) | CPT/HCPCS: 97597 ==

== ENCOUNTER 2024-03-13 10:27 | Outpatient (CLI) | payer MEDICARE, BC, SELFPAY ==
--- OUTSIDE RECORDS SUMMARY | 2024-03-13 10:29 | XMS_ITS | Clinical Summary ---
Author Organization [facility] Address [address] [place] [address] Care Team Providers Care Ping Pong Table Assembler Name Role Phone Shanae Ugarte APRN, C.N.P. Primary Care Provide r Source Comments Patient records contain information from all sites at [facility]. For routine questions regarding patient records, call [phone] during business hours, M-F 8:00 AM - 5:00 PM Central Time. Record requests for emergency care only can be directed to [phone] at any time.[facility] Allergies Active Allergy Reactions Criticality Noted Date Comments Esomeprazole Magnesium Nausea Only 11/12/2012 INCREASED ACID Penicillins Hives (Reselect Reaction) 04/15/2014 Wvipjuy-Xfx-Gax Reductase Inhibitors Myalgia 04/15/2014 Medications Medication Sig [...] 810 capsule 3 10/11/2023 5 Active DME CPAPIndications:Accounts Clerk ea Sleep Obstructive DME Order 1 each [...] Encounters Date Type Department Care Team Description 03/08/2024 6:24 PM CDT - 03/08/2024 8:42 PM CDT Emergency [facility] [place] [id number] Jaden Serna P.A.-C. Laceration Forehead Initial (Primary Dx); Laceration Ankle Without Foreign Body Initial Right Discharge Disposition: Home or Self Care 02/26/2024 Refill Department of [facility], [facility], in [address] [phone] Shanae Ugarte APRN, C.N.P. Med Refill 01/16/2024 Orders Only [facility] Shanae Ugarte APRN, C.N.P. 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 from Last 3 Months Immunizations Name Administration Dates Next Due H1N1 All Forms 08/10/2009 Influenza Split Preservative Free ID 05/15/2012 Influenza TIV (IM) 08/25/2006 Influenza high dose QV(65 years or older) (PF) 1 ,04/20/2020 Influenza, Quadrivalent, Adjuvanted, Preservativ e Free 05/12/2023 Influenza, Seasonal, Injectable 08/25/2006 PCV13 08/18/2008 PPSV23 12/04/2018 SARS-COV-2 (COVID-19) - MODE RNA (12 YEARS AND OLDER) [id number] 05/12/2023 SARS-COV-2 (COVID-19) - MODERNA(Discontinued) SARS-COV-2 (COVID-19) - PFIZ ER (Discontinued)(12 years or older) 06/07/2021 SARS-COV-2 (COVID-19) - PFIZ ER BIVALENT TS(Discontinued)(12 YEARS OR OLDER) 05/09/2022 Tdap 03/08/2024,02/23/2010 influenza high dose (65 years or older) [...] Answer Date Recorded Nutrition: EVOO Fat Source 13 04/01 Nutrition: Servings of Fruits/Vegetables per Day Not on file 04/01/2020 Dental Answer Date Recorded Dental: Regular Dentist Unknown 08/27/19 21 Sex and Gender Information Value Date Recorded Sex Assigned at Not on file Gender Identity Not on file Sexual Orientation Not on file Last Filed Vital Signs Vital Sign Reading Time Taken Comments Blood Pressure 140/62 03/08/2024 6:45 PM CDT Pulse 76 03/08/2024 6:45 PM CDT Temperature 36.7 ??C (98.1 ??F) 03/08/2024 6:27 PM CD T Respiratory Rate 14 03/08/2024 6:27 PM CDT Oxygen Saturation 99% 03/08/2024 6:45 PM CDT Inhaled Oxygen Concentration - - Weight 119 kg (261 lb 11 oz) 03/08/2024 6:29 PM CDT Height 177 cm (5' 9.69) 05/31/2023 2:47 PM SUPERVISOR SHUTTLE FITTING Body Mass Index 37.89 05/31/2023 2:47 PM SUPERVISOR SHUTTLE FITTING Plan of Treatment Health Maintenance Due Date Last Done Comments Dilated Eye Exam 1945 Zoster Vaccines (1 of 2) 1997 Hepatitis B Vaccines (1 of 3 - Risk 3-dose series) 2007 Hemoglobin A1C 01/10/2024 10/11/2023, 12/0 02/2023, 05/31/2023, Additional history exists Depression Monitoring (PHQ-9) 02/10/2024 10/11/2023 COVID-19 Vaccine (2022-08 4 season) 2024 05/12/2023, 05/09/2022, 01/30/2022, Additional history exists Influenza Vaccine (#1) 2024 3, 05/12/2023, 05/09/2022, [...] 02/04/2025 02/05/2024, 06/10, 07/04/2023, Additional history exists DTaP,Tdap,and Td Vaccines (3 - Td or Tdap) 03/08/2034 03/08/2024, 02/23/2010 Hepatitis C Screening Completed 10/06/2017 Colonoscopy Discontinued 08/07/2018, 08/13/2007 Colorectal Cancer Screening Discontinued Pneumococcal vaccine (65+ years) Completed 12/05/19 19, 08/18/2008 Abdominal Aortic Aneurysm (A AA) Screen Discontinued 05/05/2020 Fall Risk Screen (Annual) Completed 07/12/2023 Visit: Chronic Disease, age 18+ Discontinued 4, 07/12/2023 CT Colonography Discontinued Cologuard Discontinued FIT Discontinued Medical Devices Implanted Type Area Impact Retail Service Merchandiser Device Identifier Shelf Expiration Date Model / Serial / Lot Knee Implant- 0 Implanted:08/14 by Amrik Falcon M.D. (Quantity not on file) Knee Implant Knee Procedures Procedure Name Priority Date/Time Associated Diagnosis Comments DX CHEST AP OR PA AND LATERAL 2 VIEWS RAD - Semiurgent (Fast; most ED patients; some inpatients) 03/08/2024 7:[address] CERVICAL SPINE WITHOUT IV CONTRAST RAD - Semiurgent (Fast; most ED patients; some inpatients) 03/08/2024 7:[address] HEAD WITHOUT IV CONTRAST RAD - Semiurgent (Fast; most ED patients; some inpatients) 03/08/2024 7:11 PM CDT HEMOGLOBIN A1C, B Routine 10/11/2023 7:1 2 PM CDT Diabetes Mellitus Type 2 With Diabetic Neuropathy (HCC) ALBUMIN, RANDOM, U Routine 05/31/2023 2:26 PM SUPERVISOR SHUTTLE FITTING Diabetes Mellitus Type 2 With Diabetic Neuropathy Hyperglycemic (HCC) BASIC METABOLIC PANEL, S/P Routine 05/31/2023 2:22 PM SUPERVISOR SHUTTLE FITTING Monitoring For Therapeutic Drug Therapy THYROID-STIMULATI NG HORMONE-SENSITIVE (S-TSH) Routine 10/25/2021 10:43 AM CDT Hypothyroidism US AORTA AAA SCREENING RAD - Routine (most inpatients and all outpatients) 05/05/2020 10:41 AM CDT Screening Abdominal Aortic Aneurysm HCV AB SCRN W/REFLEX TO HCV PCR, S Routine 10/06/2017 2:29 PM CDT Wellness Screening from Last 3 Months or Most Recently Relevant to Health Maintenance Results * DX Chest AP or PA and Lateral 2 Views (03/08/2024 7:16 PM CDT) Anatomical Region Laterality Modality Chest, Thoracic RST LOS, Tho racic ARZ LOS, Thoracic FLA LOS N/A Digital Radiography Impressions 03/08/2024 7:37 PM CDT No comparison. Normal heart size. Mild right hemidiaphragmatic elevation. Negative for consolidative process, pleural effusion or appreciable pneumothorax. Narrative 03/08/2024 7:37 PM CDT EXAM: DX CHEST AP OR PA AND LATERAL 2 VIEWS Procedure Note Raulito Pearson M.D. - 03/08/2024 EXAM: DX CHEST AP OR PA AND LATERAL 2 VIEWS IMPRESSION: No comparison. Normal heart size. Mild right hemidiaphragmatic elevation.Negative for consolidative process, pleural effusion or appreciablepneumothorax. Jaden Serna P.A.-C. IMG DIAGNOSTIC IMAGING PROCEDURES * CT Cervical Spine without IV Contrast (03/08/2024 7:11 PM CDT) Anatomical Region Laterality Modality Cervical Spine, Neuroradiolo gy RST LOS, Neuroradiology ARZ LOS, Neuroradiology FLA LOS N/A Computed Tomography 03/08/2024 7:04 PM CDT Impressions 03/08/2024 7:35 PM CDT Negative for acute cervical spine fracture. Narrative 03/08/2024 7:35 PM CDT EXAM: CT CERVICAL SPINE WITHOUT IV CONTRAST COMPARISON: None FINDINGS: Cervical spine straightening, trace likely chronic/degenerative C4-C5 anterolisthesis. Vertebral body heights, disc spaces, dens and facets intact. Chronic traumatic deformity C6 spinous process tip. Advanced C2-C3 disc degeneration and inferior C2 endplate sclerotic permeation. Other moderate multilevel multifactorial spondylotic change. Suspect moderate/marked canal stenosis at C3-C4 relating to spondylosis. Negative for prevertebral edema. Clear lung apices. Procedure Note Raulito Pearson M.D. - 03/08/2024 EXAM: CT CERVICAL SPINE WITHOUT IV CONTRAST COMPARISON: None FINDINGS: Cervical spine straightening, trace likely chronic/degenerative C4- [id number]. Vertebral body heights, disc spaces, dens and facetsintact. Chronic traumatic deformity C6 spinous process tip. Advanced C2-C3disc degeneration and inferior C2 endplate sclerotic permeation. Other moderate multilevel multifactorialspondylotic change. Suspect moderate/marked canal stenosis at C3-P4ocurowsr to spondylosis. Negative for prevertebral edema. Clear lung apices. IMPRESSION: Negative for acute cervical spine fracture. Jaden Serna P.A.-C. [facility] PROCEDUR ES * CT Head without IV Contrast (03/08/2024 7:11 PM CDT) Anatomical Region Laterality Modality Head, Neuroradiology RST LOS , Neuroradiology ARZ LOS, Neuroradiology FLA LOS N/A Computed Tomography 03/08/2024 7:04 PM CDT Impressions 03/08/2024 7:22 PM CDT No acute intracranial findings. Lateral right frontal scalp laceration and small associated contusion. Narrative 03/08/2024 7:22 PM CDT EXAM: CT HEAD WITHOUT IV CONTRAST COMPARISON: None FINDINGS: No intracranial hemorrhage, mass or edema. No midline shift or ventricular dilatation. No extra-axial fluid collection. Scalp laceration and small underlying contusion lateral right frontal region. Mild to moderate mucosal thickening in inferior maxillary sinuses bilaterally. Mild chronic ischemic changes in the periventricular white matter bilaterally. Moderate nasal septal deviation to the right. Procedure Note Corby Bishop M.D. - 03/08/2024 EXAM: CT HEAD WITHOUT IV CONTRAST COMPARISON: None FINDINGS: No intracranial hemorrhage, mass or edema. No midline shift orventricular dilatation. No extra-axial fluid collection. Scalp lacerationand small underlying contusion lateral right frontal region. Mild tomoderate mucosal thickening in inferior maxillary sinuses bilaterally. Mild chronic ischemic changes inthe periventricular white matter bilaterally. Moderate nasal septaldeviation to the right. IMPRESSION: No acute intracranial findings. Lateral right frontal scalp laceration and small associated contusion. Jaden Serna P.A.-C. [facility] PROCEDUR ES * (ABNORMAL) Hemoglobin A1c (10/11/2023 7:12 PM [...] James M.D., Ph.D. LAB BLOOD ADD-O N [facility] [address] [place] [id number], [facility] [place] [address] * (ABNORMAL) Albumin, Random, Urine (05/31/2023 2:26 PM SUPERVISOR SHUTTLE FITTING) Microalbumin 53.8 mg/L 05/31/2023 2:48 PM SUPERVISOR SHUTTLE FITTING CNFL Creatinine 115 mg/dL 05/31/2023 2:48 PM SUPERVISOR SHUTTLE FITTING CNFL Albumin/Creatinin e Ratio 47(H) <17 mg/g 05/31/2023 2:48 PM SUPERVISOR SHUTTLE FITTING CNFL Urine (Urine, Midstream) 05/31/2023 2:26 PM SUPERVISOR SHUTTLE FITTING 05/31/2023 2:26 PM SUPERVISOR SHUTTLE FITTING Soham James M.D., Ph.D. LAB URINE ORDER SREEKANTH Performing Organization Address [facility] Co de Phone Number [address] [address], [facility] [place] [address] * S-TSH (Thyroid-Stimulating Hormone - Sensitive) (10/25/2021 10:43 AM CDT) TSH, Sensitive 1.8 0.3 - 4.2 mIU/L 10/25/2021 11:15 AM CDT CNFL Blood (Blood, Venous) 10/25/2021 10:43 AM CDT 10/25/2021 10:47 AM CDT Soham James M.D., Ph.D. LAB BLOOD ADD-O N Performing Organization Address City/[facility]/ZIP Co de Phone Number [facility] [address] [place] [address], [facility] CNFL [facility] in [address] [address] * US Aorta AAA Screening (05/05/2020 10:41 [...] S Nonreactive Nonreactive 10/09/2017 10:35 AM CDT [facility] Blood 10/06/2017 2:29 PM CDT 10/06/2017 9:44 PM CDT Narrative [facility] - 10/09/2017 10:35 AM CDT Specimen Information: Specimen ID: [id number] Specimen Type: Blood Specimen Collection Start Date: 10/06/2017 ??2:29 PM Specimen Received Date: 10/06/2017 ??9:44 PM Specimen ID: [id number] Specimen Type: Blood Specimen Collection Start Date: 10/06/2017 ??2:29 PM Specimen Received Date: 10/06/2017 ??9:44 PM Soham James M.D., Ph.D. LAB MICROBIOLOG Y - BLOOD ORDERABLES [facility] [address] [place] [address], [facility] from Last 3 Months or Most Recently Relevant to Health Maintenance Care Teams Ping Pong Table Assembler Relationship Specialty Start Date End Date Shanae Ugarte APRN, C.N.P. [address] [place] [phone] PCP - General 11/24/23
--- OUTSIDE RECORDS SUMMARY | 2024-03-13 10:29 | XMS_ITS | Clinical Summary ---
Author Organization [facility] Address [place], [place] [address] Care Team Providers Care Plastics Factory Worker Name Role Phone Hao Drew MD Unavailable [phone] Desiree Black MD Primary Care Provider + Allergies Active Allergy Reactions Criticality Noted Date Comments Esomeprazole Magnesium Nausea Only 11/12/2012 INCREASED ACID Penicillins Hives 04/15/2014 Yuubvdm-Poz-Qge Reductase Inhibitors Nausea Only,Myalgia 04/15/2014 Medications Medication [...] once daily. 90 Tablet 3 07/31/2023 Active spironolactone (ALDACTONE) 25 mg tabletIndications:Ch ronic systolic heart failure (HC),Stage 3b chronic kidney disease (CKD) (HC) Take 1 Tablet (25 mg) by mouth every morning. 90 Tablet 3 07/31/2023 Active rivaroxaban (Xarelto) 20 mg tabletIndications:Pa roxysmal atrial fibrillation (HC) Take 1 Tablet (20 mg) by mouth once daily with evening meal. 90 Tablet 3 08/28/2023 Active metFORMIN (GLUCOPHAGE) 500 mg tablet Take 2 Tablets by mouth two times daily. Active furosemide (LASIX) 40 mg tabletIndications:AK I (acute kidney injury) (HC),Chronic systolic heart failure (HC) Take 1 Tablet (40 mg) by mouth once daily in the morning. 90 Tablet 3 02/06/2024 Active potassium chloride (KLOR-CON M10) 10 mEq extended-release tablet (part/cryst)Indicati ons:Chronic systolic heart failure (HC) Take 2 Tablets (20 mEq) by mouth once daily with a meal. 180 Tablet 3 02/06/2024 Active Active Problems Problem Noted Date Diagnosed [...] 05/05/2015 Hyperlipidemia 05/05/2015 CAD (coronary artery disease), [place] coronary a rtery 10/30/2014 Systolic murmur 09/29/2014 [...] Type Department Care Team Description 02/12/2024 Telephone [facility] [address] [place] [address] Hao Drew MD Results (labs) 02/05/2024 4:40 PM CDT Orders Only [facility] [address] [place] [address] Lab, Appv Lab 02/05/2024 4:00 PM CDT Office Visit [facility] [address] [place] [address] Hao Drew MD Concerns (Andrew denies chest pain, shortness of breath /Patient states he has been having some dizziness ) 02/05/2024 Travel 12/27/2023 Patient Outreach [facility] [address] [place] [address] [facility] Care Coordination [...] ??C (98.1 ??F) 08/17/2023 1 0:43 AM UNIX DEVELOPER Respiratory Rate 16 02/05/2024 4:04 PM CDT [...] for age 50+ (1 of 2) 1997 RSV vaccine for adults or (1 - 1-dose 60+ series) 2007 Medicare Wellness for age 65+ 2012 Tetanus booster 02/24/2020 02/23/2010 COVID-19 vaccine series ( season) 2024 05/09/2022, 01/30/2022, 06/07/2021, Additional history exists Influenza for age 65+ 03/10/2024 05/24/2023 , 04/10/2018, 04/30/2014, Additional history exists BMI (ht and wt on same day) for age 18+ 02/04/2025 02/05/2024, 07/31/2023, 11/18/2021, Additional history exists Tdap Completed 02/23/2010 Pneumococcal series for age 65+ Completed , 08/18/2008 Medical Devices Implanted Type Area Advertising Dispatch Clerks Supervisor Device Identifier Shelf Expiration Date Model / Serial / Lot Cmnt Bone Simplex Hv Gentamicin - [id number] Implanted:Qty: 2 on 04/28/2014 by Amrik Falcon MD at [facility] Left: Knee [employer] 11/06/2014 6195-1-001 # / / [id number] Patella [id number] Triathlon Asymmetric X3 - [id number] Implanted:Qty: 1 on 04/28/2014 by Amrik Falcon MD at [facility] Left: Knee [employer] 02/06/2019 5551-G-350 # / / [id number] Fem Lt Sz7 Triathlon Post Stbznon Pors - [id number] Implanted:Qty: 1 on 04/28/2014 by Amrik Falcon MD at [facility] Left: Knee [employer] 02/06/2018 5515-F-701 # / / [id number] Baseplate Tib Sz6 Triathlon Pe - [id number] Implanted:Qty: 1 on 04/28/2014 by Amrik Falcon MD at [facility] Left: Knee [employer] 12/07/2018 5521-B-600 # / / KRDE Insert Knee Sz6 11mm Triathlonpost Stbz X3 - [id number] Implanted:Qty: 1 on 04/28/2014 by Amrik Falcon MD at [facility] Left: Knee [employer] 02/06/2019 5532-G-611 # / / [id number] Triathlon X3 Asymmetric Patella [id number] - [id number] Implanted:Qty: 1 on 08/14/2019 by Amrik Falcon MD at [facility] Right: Knee [employer] 02/19/2024 5551-G-381 -E / / [id number] Triathlon X3 Tibial Bearing Insert Cs Valery 5 Typ Cs Thkns 11mm - [id number] Implanted:Qty: 1 on 08/14/2019 by Amrik Falcon MD at [facility] Right: Knee [employer] 03/24/2024 5531-G-511 -E / / [id number] Cmnt Bone Simplex Hv - [id number] Implanted:Qty: 1 on 08/14/2019 by Amrik Falcon MD at [facility] Right: Knee [employer] 12/07/2020 6194-1-001 # / / [id number] Cmnt Bone Simplex Hv Gentamicin - [id number] Implanted:Qty: 1 on 08/14/2019 by Amrik Falcon MD at [facility] Right: Knee [employer] 06/08/2020 6195-1-001 # / / [id number] Fem Rt Sz6 Triathlon Cruc Ret Co Cr - [id number] Implanted:Qty: 1 on 08/14/2019 by Amrik Falcon MD at [facility] Right: Knee [employer] 01/11/2024 5510-F-602 # / / [id number] Baseplate Tib Sz5 Triathlon Pe - [id number] Implanted:Qty: 1 on 08/14/2019 by Amrik Falcon [...] - 145 mmol/L 02/06/2024 9:25 AM CDT [facility] POTASSIUM 4.3 3.5 - 5.1 mmol/L 02/06/2024 9:25 AM CDT [facility] CHLORIDE 99 98 - 107 mmol/L 02/06/2024 9:25 AM CDT [facility] CO2,TOTAL 27 22 - 29 mmol/L 02/06/2024 9:25 AM CDT [facility] ANION GAP 13 5 - 18 02/06/2024 9:25 AM CDT [facility] GLUCOSE 156(H) 70 - 99 mg/dL 02/06/2024 9:25 AM CDT [facility] CALCIUM 10.1 8.8 - 10.2 mg/dL 02/06/2024 9:25 AM CDT [facility] BUN 36(H) 8 - 23 mg/dL 02/06/2024 9:25 AM CDT [facility] CREATININE 2.09(H) 0.70 - 1.20 mg/dL 02/06/2024 9:25 AM CDT [facility] BUN/CREAT RATIO 17 10 - 20 9:25 AM CDT [facility] eGFR 32(L) >90 mL/min/1.7 3m2 02/06/2024 9:25 AM T [facility] Comment:As of 2021, eG [...] 4:41 PM CDT Hao Drew MD CHEMISTRY [facility] [address] [place] [address], from Last 3 Months Advance Directives * [...] 11:50 PM 08/09/2018 3:08 PM Care Teams Plastics Factory Worker Relationship Specialty Start Date End Date Desiree Black MD [address] [place] [address] PCP - General Family Practice 02/05/24 Hao Drew MD [address] [facility] [address] [place] [address] Cardiology Cardiovascular Disease 12/30/19
--- OUTSIDE RECORDS SUMMARY | 2024-03-13 10:29 | XMS_ITS ---
Author Organization [facility] Address [address] [place] [address] Care Team Providers Care Linotype Mechanic Name Role Phone Unavailable Unavailable Unavailable Surgery Details Not on file Complications Check Surgery Details section. Procedure Estimated Blood Loss Check Surgery Details section. Procedure Findings Check Surgery Details section. Procedure Specimens Taken Check Surgery Details section.
--- OUTSIDE RECORDS SUMMARY | 2024-03-13 10:29 | XMS_ITS | Continuity of Care Document ---
Author Organization [facility] Address [address] [place] [address] Phone Care Team Providers Care Consultant Electronics Name Role Phone Roshni Rousseau DPT Unavailable [...] Providers Copied on Encounter [facility], [address], [place], [place], [id number], [place] tel:[phone] [place] [facility] No Information 3 Soham Barakat. [address], [address], [place], [address], [place]. tel:[phone] [facility], [address], [place], [place], [id number], [place] tel:[phone] [facility] Spinal stenosis, lumbar region with neurogenic claudicationRadic ulopathy, lumbar regionType 2 diabetes mellitus with diabetic neuropathy, unsp 3 Soham Barakat. [address], [address], [place], [address], [place]. tel:[phone] Referring Provider: Laron Basurto, [address], [place], [address] . tel:[phone] Psychiatric Diagnostic Evaluation Telephone Only [facility], [address], [place], [place], [id number], [place] tel:[phone] [facility] Pain disorder with related psychological factors 3 Selwyn Pabon. [address], [place], [address], [place]. tel:[phone] Referring Provider: Laron Basurto, [address], [place], [address] . tel:[phone] [facility], [address], [place], [place], [id number], [place] tel:[phone] [facility] Spinal stenosis, lumbar region with neurogenic claudicationRadic ulopathy, lumbar region 3 Foster Sam. [address], [place], [address], [place]. tel:[phone] Referring Provider: Laron Basurto, [address], [place], [address] . tel:[phone] Est Pt [facility], [address], [place], [place], [id number], [place] tel:[phone] [facility] back pain (chief complaint) Spinal stenosis, lumbar region with neurogenic claudicationType 2 diabetes mellitus w/ diabetic neuropathyRadicul opathy, lumbar regionBody mass index (BMI) 40.0-44.9, adult 3 [place] Sam. [address], [place], [address], [place]. tel:[phone] Referring Provider: Laron Basurto, [address], [place], [address] . tel:[phone] New Pt Eval 45 Min [facility], [facility], [address], [place], [place], [id number], [place] tel:[phone] [facility] back pain (chief complaint) Body mass index (BMI) 40.0-44.9, adultSpinal stenosis, lumbar region with neurogenic claudicationRadic ulopathy, lumbar regionType 2 diabetes mellitus w/ diabetic neuropathy Dec- 3 Foster Sam. [address], [place], [address], [place]. tel:[phone] Referring Provider: Laron Basurto, [address], [place], [address] . tel:[phone] Family History Family Member Type Diagnosis Age At Onset No Information Payers Payer name Insurance type Covered democrat ID Bernice galicia(s) Medicare Part B AKUA [id number] [employer] BL [id number] Social History Type Description Quantity Date Captured [...] lumbar region -Requested medical r ecords from [facility] ([facility])-Order MRI of the lumbar spine at [facility] [...]
--- OUTSIDE RECORDS SUMMARY | 2024-03-13 10:29 | XMS_ITS | Referral Summary ---
Author Organization [facility] Address [address] [place] [address] Care Team Providers Care Time Piece Repairer Name Role Phone Shanae Ugarte APRN, C.N.P. Primary Care Provide r Source Comments Patient records contain information from all sites at [facility]. For routine questions regarding patient records, call [phone] during business hours, M-F 8:00 AM - 5:00 PM Central Time. Record requests for emergency care only can be directed to [phone] at any time.[facility] Encounters Date Type Department Care Team Description 03/08/2024 6:24 PM CDT - 03/08/2024 8:42 PM CDT Emergency [facility] [address] [place] [phone] Jaden Serna, P.A.-C. Laceration Forehead Initial (Primary Dx); Laceration Ankle Without Foreign Body Initial Right Discharge Disposition: Home or Self Care 02/26/2024 Refill Department of [facility], [facility], in [address] [phone] Shanae Ugarte APRN, C.N.P. Med Refill 01/16/2024 Orders Only [facility] Shanae Ugarte APRN, C.N.P. 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 from Last 3 Months Allergies Active Allergy Reactions Criticality Noted Date Comments Esomeprazole Magnesium Nausea Only 11/12/2012 INCREASED ACID Penicillins Hives (Reselect Reaction) 04/15/2014 Bypfeku-Ibb-Ywt Reductase Inhibitors Myalgia 04/15/2014 Medications Medication Sig [...] daily. 90 tablet 3 08/17/2023 Active Basaglar JayashreeikPen U-100 Insulin 100 unit/mL (3 mL) injectionIndication [...] 810 capsule 3 10/11/2023 5 Active DME CPAPIndications:Finishing Range Feeder ea Sleep Obstructive DME Order 1 each [...] - MODE RNA (12 YEARS AND OLDER) [id number] 05/12/2023 SARS-COV-2 (COVID-19) - MODERNA(Discontinued) SARS-COV-2 (COVID-19) [...] 177 cm (5' 9.69) 05/31/2023 2:47 PM WELDER FITTER GAS Body Mass Index 37.89 05/31/2023 2:47 PM WELDER FITTER GAS Plan of Treatment Not on file Medical Devices Implanted Type Area Music Theory Professor Device Identifier Shelf Expiration Date Model / [...] ALBUMIN, RANDOM, U Routine 05/31/2023 2:26 PM WELDER FITTER GAS Diabetes Mellitus Type 2 With Diabetic Neuropathy Hyperglycemic (HCC) BASIC METABOLIC PANEL, S/P Routine 05/31/2023 2:22 PM WELDER FITTER GAS Monitoring For Therapeutic Drug Therapy THYROID-STIMULATI NG [...] Cervical spine straightening, trace likely chronic/degenerative C4- F6fcfewxwbefoyfvi. Vertebral body heights, disc spaces, dens and facetsintact. Chronic traumatic deformity C6 spinous process tip. Advanced C2-C3disc degeneration and inferior C2 endplate sclerotic permeation. Other moderate multilevel multifactorialspondylotic change. Suspect moderate/marked canal stenosis at C3-E6virpucxu to spondylosis. Negative for prevertebral edema. Clear lung apices. IMPRESSION: Negative for acute cervical spine fracture. Jaden Serna P.A.-C. IMG CT PROCEDUR ES * CT Head without [...] and small associated contusion. Jaden Serna P.A.-C. IMG CT PROCEDUR ES * (ABNORMAL) Hemoglobin A1c [...] James M.D., Ph.D. LAB BLOOD ADD-O N [facility] [address] [place] [address], [place] [address] * (ABNORMAL) Albumin, Random, Urine (05/31/2023 2:26 PM WELDER FITTER GAS) Microalbumin 53.8 mg/L 05/31/2023 2:48 PM WELDER FITTER GAS CNFL Creatinine 115 mg/dL 05/31/2023 2:48 PM WELDER FITTER GAS CNFL Albumin/Creatinin e Ratio 47(H) <17 mg/g 05/31/2023 2:48 PM WELDER FITTER GAS [facility] Urine (Urine, Midstream) 05/31/2023 2:26 PM WELDER FITTER GAS 05/31/2023 2:26 PM WELDER FITTER GAS Soham James M.D., Ph.D. LAB URINE ORDER SREEKANTH Performing Organization Address City/[facility]/ZIP Co de Phone Number [place] [id number], [place] [address] * S-TSH (Thyroid-Stimulating Hormone - Sensitive) (10/25/2021 10:43 AM CDT) Pathologist [facility] TSH, Sensitive 1.8 0.3 - 4.2 mIU/L 10/25/2021 11:15 AM CDT [facility] Blood (Blood, Venous) 10/25/2021 10:43 AM CDT 10/25/2021 10:47 AM CDT Soham James M.D., Ph.D. LAB BLOOD ADD-O N [place] [id number], [place] [id number] * US Aorta AAA Screening (05/05/2020 10:41 [...] negative for aneurysm. Soham James M.D., Ph.D. G US PROCEDUR ES * HCV AB Scrn w/Reflex to HCV PCR, S (10/06/2017 2:29 PM CDT) HCV Ab Screen, S Nonreactive Nonreactive 10/09/2017 10:35 AM CDT [facility] Blood 10/06/2017 2:29 PM CDT 10/06/2017 9:44 PM CDT Narrative [facility] - 10/09/2017 10:35 AM CDT Specimen Information: Specimen ID: [id number] Specimen Type: Blood Specimen Collection Start Date: 10/06/2017 ??2:29 PM Specimen Received Date: 10/06/2017 ??9:44 PM Specimen ID: [id number] Specimen Type: Blood Specimen Collection Start Date: 10/06/2017 ??2:29 PM Specimen Received Date: 10/06/2017 ??9:44 PM Soham James M.D., Ph.D. LAB MICROBIOLOG Y - BLOOD ORDERABLES [facility] [address] [place] [address], [facility] from Last 3 Months or Most Recently Relevant to Health Maintenance Care Teams Time Piece Repairer Relationship Specialty Start Date End Date Shanae Ugarte APRN, C.N.P. [address] [place] [phone] PCP - General 11/24/23
--- OUTSIDE RECORDS SUMMARY | 2024-03-13 10:30 | XMS_ITS | Clinical Summary ---
Author Organization [facility] Address [address] [place] [address] Care Team Providers Care Barrel Rifler Button Name Role Phone Soham James MD Primary Care Provider [phone] Allergies Active Allergy Reactions Criticality Noted Date [...] Comments Blood Pressure 118/67 08/07/2018 9:20 AM ESCROW MANAGER Pulse 64 08/07/2018 9:20 AM ESCROW MANAGER Temperature 36.6 ??C (97.9 ??F) 08/21/2012 8:20 AM CS T Respiratory Rate 20 08/07/2018 9:30 AM ESCROW MANAGER Oxygen Saturation 91% 08/07/2018 9:27 AM ESCROW MANAGER Inhaled Oxygen Concentration - - Weight 124.7 kg (275 lb) 08/07/2018 7:52 AM ESCROW MANAGER Height 177.8 cm (5' 10) 08/07/2018 7:52 AM ESCROW MANAGER Body Mass Index 39.46 08/07/2018 7:52 AM ESCROW MANAGER Plan of Treatment Health Maintenance Due Date Last Done Comments ADVANCE CARE PLANNING 1945 ANNUAL REVIEW OF HM ORDERS 1945 LIPID 1945 TSH W/FREE T4 REFLEX 1945 HEPATITIS C SCREENING 1965 LUNG CANCER SCREENING 1997 ZOSTER IMMUNIZATION (1 of 2) 1997 RSV VACCINE (1 - 1-dose 60+ series) 2007 FALL RISK ASSESSMENT 2012 GLUCOSE 08/21/2015 08/21/2012, 07/11, 08/07/2012, Additional history exists DTAP/TDAP/TD IMMUNIZATION (2 - Td or Tdap) 02/24/2020 02/23/2010 PHQ-2 (once per calendar year) 2023 COVID-19 Vaccine (2022- season) 2023 05/12/2023, 05/09/2022, 01/29/2022, Additional history exists INFLUENZA VACCINE (#1) 2024 , 05/09/2022, 04/20/2020, Additional history exists COLONOSCOPY Discontinued [...] Diagnosis Comments COLONOSCOPY Routine 08/07/2018 8:13 AM ESCROW MANAGER GLUCOSE BY METER Routine 08/21/2012 7:19 AM ESCROW MANAGER from Last 3 Months or Most Recently Relevant to Health Maintenance Results * COLONOSCOPY (08/07/2018 8:13 AM ESCROW MANAGER) COLONOSCOPY [facility] Endoscopy Department ___ Patient Name: Shin Best ? Procedure Date: 08/07/2018 8:13 AM ? Date of : 1945 ? Admit Type: Outpatient Age: 73 ? Room: 3 Note Status: Finalized ?Attending MD: Abraham Milner , Total Sedation Time: 41 mins of continuous bedside 1:1 Instrument Name: 325 [id number] AdultColonoscope ___ Procedure: ?Colonoscopy Indications: ?Screening for colorectal malignant neoplasm Providers: ?Abraham Milner, Marietta Garnica, SONIA Referring MD: ? Soham James MD Medicines: [...] Procedure Code(s): ? --- Professional --- ? 08827, Colonoscopy, flexible; with removal of tumor(s), polyp(s), or ? other lesion(s) by snare technique Diagnosis Code(s): ? --- Professional --- ? Z12.11, Encounter for screening for malignant neoplasm of colon ? K62.1, Rectal polyp CPT copyright 2017 [employer]. All rights reserved. The codes documented in this report are preliminary and upon cop winder review may be revised to meet current compliance requirements. Abraham Milner, 08/07/2018 9:10:30 AM I was physically present for the entire viewing portion of the exam. Abraham Milner Number of Addenda: 0 Note Initiated On: 08/07/2018 8:13 AM MRN: ?[id number] Procedure Date: ? 08/07/2018 8:13:49 AM Scope Withdrawal Time: 0 hours 13 minutes 27 seconds Total Procedure Duration: 0 hours 40 minutes 58 seconds Estimated Blood Loss: ? Scope In: 8:20:39 AM Scope Out: 9:01:37 AM RADIOLOGY RESULTS 08/07/2018 8:13 AM ESCROW MANAGER Soham James MD PROCEDURES RADIOLOGY RESULTS * Glucose by meter (08/21/2012 7:19 AM ESCROW MANAGER) Glucose 79 60 - 99 mg/dL POINT OF CARE TEST, GLUCOSE Comment:Dr/RN Notified 08/21/2012 7:19 AM ESCROW MANAGER 08/21/2012 7:25 AM ESCROW MANAGER Stacy Ayers MD LAB - [facility] POCT Performing Organization Address City/[facility]/ZIP Co de Phone Number POINT OF CARE TEST, GLUCOSE from Last 3 Months or Most Recently Relevant to Health Maintenance Care Teams Barrel Rifler Button Relationship Specialty Start Date End Date Soham James MD [facility] [address] [place] [address] PCP - General Family Practice 07/25/12
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
--- OUTSIDE RECORDS SUMMARY | 2024-03-13 10:30 | XMS_ITS | Encounter Summary ---
Author Organization [facility] Address [address] [place] [address] Care Team Providers Care Doorshaker Name Role Phone Shanae Ugarte APRN, C.N.P. Primary Care Provide r Reason for Visit * Reason Comments Med Refill Encounter Details Date Type Department Care Team (Late st Contact Info) Description 02/26/2024 Refill Department of Family Medicine, [facility], in [address] [address] Shanae Ugarte APRN, C.N.P. [address] [place] [phone] Med Refill Social History Tobacco Use Types [...] documented as of this encounter Care Teams Doorshaker Relationship Specialty Start Date End Date Shanae Ugarte APRN, C.N.P. [address] [place] [phone] PCP - General 11/24/23 documented as of this encounter
--- OUTSIDE RECORDS SUMMARY | 2024-03-13 10:30 | XMS_ITS | Encounter Summary ---
Author Organization [facility] Address [address] [place] [address] Care Team Providers Care Corporate Representative Name Role Phone Shanae Ugarte APRN, C.N.P. Primary Care Provide r Encounter Details Date Type Department Care Team (Late st Contact Info) Description 01/16/2024 Orders Only [facility] PCP [facility] M[facility] Shanae Ugarte, ARRON, C.N.P. [address] [place] [address] Diabetes Mellitus Type 2 With [...] as of this encounter Care Teams Corporate Representative Relationship Specialty Start Date End Date Shanae Ugarte APRN, C.N.P. [address] [place] [phone] PCP - General 11/24/23 documented as of this encounter
--- OUTSIDE RECORDS SUMMARY | 2024-03-13 10:30 | XMS_ITS | Referral Summary ---
Author Organization [facility] Address [address] [place] [address] Care Team Providers Care Gum Machine Filler Name Role Phone Soham James MD Primary Care Provider [phone] Allergies Active Allergy Reactions Criticality Noted Date [...] Blood Pressure 118/67 08/07/2018 9:20 AM FIELD CROP HARVEST CONTRACTOR Pulse 64 08/07/2018 9:20 AM FIELD CROP HARVEST CONTRACTOR Temperature 36.6 ??C (97.9 ??F) 08/21/2012 8:20 AM CS T Respiratory Rate 20 08/07/2018 9:30 AM FIELD CROP HARVEST CONTRACTOR Oxygen Saturation 91% 08/07/2018 9:27 AM FIELD CROP HARVEST CONTRACTOR Inhaled Oxygen Concentration - - Weight 124.7 kg (275 lb) 08/07/2018 7:52 AM FIELD CROP HARVEST CONTRACTOR Height 177.8 cm (5' 10) 08/07/2018 7:52 AM FIELD CROP HARVEST CONTRACTOR Body Mass Index 39.46 08/07/2018 7:52 AM FIELD CROP HARVEST CONTRACTOR Plan of Treatment Not on file Procedures Procedure Name Priority Date/Time Associated Diagnosis Comments COLONOSCOPY Routine 08/07/2018 8:13 AM FIELD CROP HARVEST CONTRACTOR GLUCOSE BY METER Routine 08/21/2012 7:19 AM FIELD CROP HARVEST CONTRACTOR from Last 3 Months or Most Recently Relevant to Health Maintenance Results * COLONOSCOPY (08/07/2018 8:13 AM FIELD CROP HARVEST CONTRACTOR) [facility] COLONOSCOPY [facility] Endoscopy Department ___ Patient Name: Shin Best ? Procedure Date: 08/07/2018 8:13 AM ? Date of : 1945 ? Admit Type: Outpatient Age: 73 ? Room: 3 Note Status: Finalized ?Attending MD: Abraham Milner , Total Sedation Time: 41 mins of continuous bedside 1:1 Instrument Name: 325 [id number] AdultColonoscope ___ Procedure: ?Colonoscopy Indications: ?Screening for [...] Procedure Code(s): ? --- Professional --- ? 49990, Colonoscopy, flexible; with removal of tumor(s), polyp(s), or ? other lesion(s) by snare technique Diagnosis Code(s): ? --- Professional --- ? Z12.11, Encounter for screening for malignant neoplasm of colon ? K62.1, Rectal polyp CPT copyright 2017 [employer]. All rights reserved. The codes documented in this report are preliminary and upon breaker oiler review may be revised to meet current compliance requirements. Abraham Milner, 08/07/2018 9:10:30 AM I was physically present for the entire viewing portion of the exam. Abraham Milner Number of Addenda: 0 Note Initiated On: 08/07/2018 8:13 AM MRN: ?[id number] Procedure Date: ? 08/07/2018 8:13:49 AM Scope Withdrawal Time: 0 hours 13 minutes 27 seconds Total Procedure Duration: 0 hours 40 minutes 58 seconds Estimated Blood Loss: ? Scope In: 8:20:39 AM Scope Out: 9:01:37 AM RADIOLOGY RESULTS 08/07/2018 8:13 AM FIELD CROP HARVEST CONTRACTOR Soham James MD PROCEDURES RADIOLOGY RESULTS * Glucose by meter (08/21/2012 7:19 AM FIELD CROP HARVEST CONTRACTOR) Glucose 79 60 - 99 mg/dL POINT OF CARE TEST, GLUCOSE Comment:Dr/RN Notified 08/21/2012 7:19 AM FIELD CROP HARVEST CONTRACTOR 08/21/2012 7:25 AM FIELD CROP HARVEST CONTRACTOR Stacy Ayers MD [facility] POCT POINT OF CARE TEST, GLUCOSE from Last 3 Months or Most Recently Relevant to Health Maintenance Care Teams Gum Machine Filler Relationship Specialty Start Date End Date Soham James MD [facility] [address] [place] [address] PCP - General Family Practice 07/25/12
--- OUTSIDE RECORDS SUMMARY | 2024-03-13 10:30 | XMS_ITS | Encounter Summary ---
Author Organization [facility] Address [address] [place] [address] Care Team Providers Care Tool Builder Name Role Phone Shanae Ugarte APRN, C.N.P. Primary Care Provide r Encounter Details Date Type Department Care Team (Late st Contact Info) Description 01/02/2024 Clinical Communication Department of Family Medicine, [facility], in [address] [phone] Shanae Ugarte APRN, C.N.P. [address] [place] [address] Social History Tobacco Use Types [...] copy of this note was faxed to [facility] so that they would have all of the necessary information. documented in this encounter Plan of Treatment Not on file documented as of this encounter Visit Diagnoses Not on filedocumented in this encounter Additional Health Concerns Assessment Noted Time PHQ-9 Depression Total Score: 5 10/11/19 24 9:23 PM CDT documented as of this encounter Care Teams Tool Builder Relationship Specialty Start Date End Date Shanae Ugarte APRN, C.N.P. [address] [place] [address] PCP - General 11/24/23 documented as of this encounter
--- OUTSIDE RECORDS SUMMARY | 2024-03-13 10:30 | XMS_ITS | Encounter Summary ---
Author Organization [facility] Address [address] [place] [address] Care Team Providers Care Embossing Unit Operator Name Role Phone Soham James MD Primary Care Provider [phone] Encounter Details Date Type Department Care Team (Late st Contact Info) Description 2023 Telephone [facility] [address] [place] [address] Piper Castanon, DPMikki, Podiatry/Foot and Ankle Surgery [address] [place], [place] [address] Social History Tobacco Use Types Packs/Day Years [...] referral we received from Dr. Soham James ([facility]) via fax this morning. Scheduled patient to see Dr. Castanon on June 20 in [place]. Patient requested the building address be sent to him via mail, so a letter was sent out. Patient was appreciative of the call. Dionte Rodrigez, Visit Recruitment Director STANT PROFESSOR OF ART documented in this encounter Plan of Treatment Not on file documented as of this encounter Visit Diagnoses Not on filedocumented in this encounter Care Teams Embossing Unit Operator Relationship Specialty Start Date End Date Soham James MD [facility] [address] [place] [address] PCP - General Family Practice 07/25/12 documented as of this encounter
== END 2024-03-13 10:28 | disposition home or self-care (01) ==
LOC: WOUND 10:27
PROVIDERS: PCP Family Medicine; Visit Provider Surgery
DX: S81.801A Unspecified open wound, right lower leg, initial encounter (principal); S01.81XA Laceration without foreign body of other part of head, initial encounter; S61.402A Unspecified open wound of left hand, initial encounter; S61.401A Unspecified open wound of right hand, initial encounter; S91.001A Unspecified open wound, right ankle, initial encounter; V19.9XXA Pedal cyclist (driver) (passenger) injured in unspecified traffic accident, initial encounter; Y93.55 Activity, bike riding; E11.621 Type 2 diabetes mellitus with foot ulcer; I87.2 Venous insufficiency (chronic) (peripheral); L97.512 Non-pressure chronic ulcer of other part of right foot with fat layer exposed; Z79.4 Long term (current) use of insulin; Z79.84 Long term (current) use of oral hypoglycemic drugs
CPT/HCPCS: 11042; G0463

== ENCOUNTER 2024-03-18 06:02 | Inpatient (IN) | payer MEDICARE, BC, SELFPAY ==
[2024-03-18] VITALS (19 sets, daily range): BP systolic 131–176; BP diastolic 69–89; PULSE 65–88; RESP 14–22; TEMP 36.6–38.8; O2SAT 93–99
--- NOTE | 2024-03-18 06:45 | CRLHL7_ITS ---
For Patients: As a result of the Cures Act, medical imaging exams and procedure reports are released immediately into your electronic medical record. You may view this report before your referring provider. If you have questions, please contact your health care provider. Indication: : Fever TECHNIQUE: Single-view chest. FINDINGS: Low lung volumes. Normal cardiac mediastinal silhouette no acute airspace or interstitial process probable mild basilar atelectasis. Dictated by Kirti Shabazz MD @ 03/18/2024 7:20:32 AM (Electronically Signed)
--- NOTE | 2024-03-18 06:47 | CRLHL7_ITS ---
For Patients: As a result of the Century Cures Act, medical imaging exams and procedure reports are released immediately into your electronic medical record. You may view this report before your referring provider. If you have questions, please contact your health care provider. INDICATION: Injury. Altered mental status. COMPARISON: None TECHNIQUE: CT examination of the head was performed as axial sections without intravenous contrast. Images were obtained from the vertex of the skull through the skull base. Please note that all CT scans at this facility use dose modulation, iterative reconstruction, and/or weight-based dosing when appropriate to reduce radiation dose to as low as reasonably achievable. FINDINGS: The brain shows no sign of mass lesion, mass effect, hemorrhage, or edema. There are involutional changes. There is moderate cortical atrophy and there is moderate white matter disease. There is no hydrocephalus. The visualized portions of the orbits are normal in appearance. The osseous structures are normal in appearance with no sign of abnormality in the skull base or calvarium. IMPRESSION: Involutional changes. No acute-appearing findings. Please note that all CT scans at this facility use dose modulation, iterative reconstruction, and/or weight-based dosing when appropriate to reduce radiation dose to as low as reasonably achievable. Dictated by Prosper Smith MD @ 03/18/2024 7:22:11 AM (Electronically Signed)
[2024-03-18 06:57] LABS: Basophils Absolute Auto 0.06 K/uL (0.00-0.30); Basophils Percent Auto 0.6 % (0.0-3.0); Eosinophils Absolute Auto 0.48 K/uL (0.00-0.50); Hematocrit 39.3 % (37.0-53.0); Immature Granulocytes Abs Auto 0.11 K/uL (0.00-0.30); Immature Granulocytes Pct Auto 1.1 %; Lactate* 1.9 mmol/L (0.5-1.9); Lymphocytes Percent Auto 12.1 % (20-44); Mean Corpuscular HGB Conc 33 gm/dL (32-36); Mean Corpuscular Hemoglobin 28 pg (26-34); Mean Corpuscular Volume 86 fL (80-100); Monocytes Percent Auto 13.8 % (0.0-11.0); Neutrophils Absolute Auto 6.52 K/uL (1.7-7.0); Neutrophils Percent Auto 67.4 % (42.0-72.0); Platelet Count* 353 K/uL (140-440); RDW Coefficient of Variation % 14.5 % (11.5-15.5); Red Blood Count 4.58 m/uL (4.30-5.90); White Blood Count* 9.68 K/uL (4.50-11.00)
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
[2024-03-18 06:59] LABS: Slide Review Reflex No
[2024-03-18 07:08] LABS: Appearance Urine Clear (Clear); Bilirubin Urine Negative (Negative); Blood Urine Trace-intact (Negative); Color Urine Yellow (Yellow); Glucose Urine 3+ (Negative); Ketones Urine Negative (Negative); Leukocyte Esterase Urine Negative (Negative); Nitrite Urine Negative (Negative); Protein Urine 2+ (Negative); Specific Gravity Urine 1.025 (1.000-1.030)
[2024-03-18 07:10] LABS: Chloride* 99 mmol/L (96-114); Potassium* 3.6 mmol/L (3.6-5.1); Sodium* 135 mmol/L (135-149)
[2024-03-18 07:11] LABS: Albumin* 4.3 g/dL (3.3-5.0)
[2024-03-18 07:12] LABS: Creatinine* 1.5 mg/dL (0.5-1.5); Estimated Glomerular Filt Rate 48 ml/min
[2024-03-18 07:13] LABS: Anion Gap 9 mEq/L (7-15); Blood Urea Nitrogen* 29 mg/dL (7-30); Carbon Dioxide* 27 mmol/L (20-32); Glucose* 202 mg/dL (60-115)
[2024-03-18 07:14] LABS: Alanine Aminotransferase* 17 U/L (4-50); Alkaline Phosphatase* 123 U/L (40-150); Aspartate Amino Transferase* 19 U/L (12-35); Bilirubin Direct* 0.5 mg/dL (0.0-0.5); Bilirubin Total* 0.8 mg/dL (0.1-1.5); Calcium* 9.6 mg/dL (8.4-10.6); Total Protein* 7.6 g/dL (6.0-8.3)
[2024-03-18 07:16] LABS: C Reactive Protein* 1.2 mg/dL (0.5-1.0)
--- OUTSIDE RECORDS SUMMARY | 2024-03-18 07:16 | XMS_ITS | Encounter Summary ---
Author Organization [facility] Er Address [address] [place] [address] Care Team Providers Care Probate Lawyer Name Role Phone Shanae Ugarte APRN, C.N.P. Primary Care Provide r Reason for Visit * Reason Comments Med Refill Encounter Details Date Type Department Care Team (Late st Contact Info) Description 02/26/2024 Refill Department of Family Medicine, [facility], in [address] [id number] Shanae Ugarte APRN, C.N.P. [address] [place] [phone] Med Refill Social History Tobacco Use Types [...] documented as of this encounter Care Teams Probate Lawyer Relationship Specialty Start Date End Date Shanae Ugarte APRN, C.N.P. [address] [place] [phone] PCP - General 11/24/23 documented as of this encounter
--- OUTSIDE RECORDS SUMMARY | 2024-03-18 07:16 | XMS_ITS | Encounter Summary ---
Author Organization [facility] Address [address] [place] [address] Care Team Providers Care Glue Specialty Supervisor Name Role Phone Shanae Ugarte APRN, C.N.P. Primary Care Provide r Reason for Visit * Reason Comments Fall Encounter Details Date Type Department Care Team (Late st Contact Info) Description 03/08/2024 6:24 PM CDT - 03/08/2024 8:42 PM CDT Emergency [facility] [address] [place] [address] Jaden Serna, P.A.-C. [address] [place] [address] Laceration Forehead Initial (Primary Dx); [...] Body Mass Index 37.89 05/31/2023 2:47 PM EDUCATION REVIEWER documented in this encounter Discharge Instructions * Discharge Instructions* Jaden Serna P.A.-C. - 03/08/2024 8:31 PM CDT Sutures in your forehead can come out in 5 days Sutures in your ankle can come out in 7-10 days * Attachments The following attachments cannot be sent through Care Everywhere. * Laceration Care Adult [id number]-wm-[id number] ([place]ahamian) documented in this encounter Medications at Time [...] tablet 3 05/12/2023 clotrimazole (LOTRIMIN) 1 % creamIndications:[place] titis Seborrheic Apply 1 Application topically 2 [...] by mouth. 07/06/2023 triamcinolone (KENALOG) 0.1 % creamIndications:[place] titis Seborrheic Apply 1 Application topically 2 (two) times a day. Apply to face. 30 g 11 10/11/2023 documented as of this encounter Procedure Notes * Jaden Serna P.A.-C. - 03/08/2024 8:32 PM CDTAssociated Order(s): Laceration Repair Procedure Laceration Repair Performed by: Jaden Serna P.A.-C. Authorized by: Jaden Serna P.A.-C. Care team members present 1. Jaden Serna P.A.-C. PROCEDURE DETAILS Repair type: Simple Limited defect created (wound extended): no Hemostasis achieved with: Direct pressure Contaminated: no Wound exploration: wound explored through full range of motion and entire depth of wound probed andvisualized Wound extent: areolar tissue violated Wound extent: fascia not violated, no foreign body, no signs of injury, no nerve damage, no tendon damage, no underlying fracture and no vascular damage Repair method: Sutures Suture size: 4-0 Suture material: Nylon Suture technique: Simple interrupted Number of sutures: 5 Approximation: Close CONSENT Consent obtained: verbal Consent given by: patient SEDATION / ANESTHESIA Anesthesia method: local infiltration Local infiltrate type: lidocaine PRE PROCEDURE DETAILS Indication: laceration Location: Face Length (cm): 4 Depth (mm): 4 Area cleansed with: Chlorhexidine Amount of cleaning: Standard POST PROCEDURE DETAILS Procedure completed successfully: yes Tetanus status up to date: Up to date Dressing Applied: yes Dressing applied: Adhesive bandage Complications: no immediate complications Jaden Serna P.A.-C. 03/13/24 1109 documented in this encounter ED Notes * Jaden Serna [...] by: Patient REVIEW OF SYSTEMS As per [facility] OBJECTIVE Initial Vitals Temperature 03/08/241826 36.7 ??C Pulse Rate 03/08/241826 75 Heart Rate -- Resp Rate 03/08/241826 14 BP -- SpO2 03/08/241826 99 % Pain Score 03/08/241827 9 PHYSICAL EXAMINATION ASSESSMENT/PLAN Assessment and Plan [...] loc. Pt on Plavix. Keyona Soto R.N. 03/08/24 1827 documented in this encounter Plan of Treatment Not on file documented as of this encounter Procedures Procedure Name Priority Date/Time Associated Diagnosis Comments LACERATION REPAIR Routine 03/08/2024 8:3 2 PM CDT DX CHEST AP OR PA AND LATERAL [...] CDT documented in this encounter Results * Laceration Repair (03/08/2024 8:32 PM CDT) Narrative Jaden Serna P.A.-C. - 03/08/2024 8:32 PM CDT Jaden Serna P.A.-C. ? 03/13/2024 11:09 AM Laceration Repair Performed by: Jaden Serna P.A.-C. Authorized by: Jaden Serna P.A.-C. ?? Care team members present 1. Jaden Serna P.A.-C. PROCEDURE DETAILS Repair type: ??Simple Limited defect created (wound extended): no ?? Hemostasis achieved with: ??Direct pressure Contaminated: no ?? Wound exploration: wound explored through full range of motion and entire depth of wound probed and visualized ?? Wound extent: areolar tissue violated ?? Wound extent: fascia not violated, no foreign body, no signs of injury, no nerve damage, no tendon damage, no underlying fracture and no vascular damage ?? Repair method: ??Sutures Suture size: ??4-0 Suture material: ??Nylon Suture technique: ??Simple interrupted Number of sutures: ??5 Approximation: ??Close CONSENT Consent obtained: verbal Consent given by: patient SEDATION / ANESTHESIA Anesthesia method: local infiltration Local infiltrate type: lidocaine PRE PROCEDURE DETAILS Indication: laceration ?? Location: ??Face Length (cm): ??4 Depth (mm): ??4 Area cleansed with: ??Chlorhexidine Amount of cleaning: ??Standard POST PROCEDURE DETAILS Procedure completed successfully: yes ?? Tetanus status up to date: ??Up to date Dressing Applied: yes ?? Dressing applied: ??Adhesive bandage Complications: no immediate complications ?? Jaden Serna P.A.-C. PROCEDURE/MINOR SURGICAL ORDERABLES * DX Chest AP or PA and [...] Cervical spine straightening, trace likely chronic/degenerative C4- D4gvyailwbeobsuwt. Vertebral body heights, disc spaces, dens and facetsintact. Chronic traumatic deformity C6 spinous process tip. Advanced C2-C3disc degeneration and inferior C2 endplate sclerotic permeation. Other moderate multilevel multifactorialspondylotic change. Suspect moderate/marked canal stenosis at C3-N7aunwjhci to spondylosis. Negative for prevertebral edema. Clear lung apices. IMPRESSION: Negative for acute cervical spine fracture. Jaden Serna P.A.-C. [place]te CT PROCEDUR ES * CT Head without IV Contrast (03/08/2024 7:11 PM CDT) Anatomical Region Laterality Modality Head, Neuroradiology [facility] , [facility] [place], [facility] Computed Tomography 03/08/2024 7:04 PM CDT [...] Jaden Serna P.A.-C. IMG CT PROCEDUR ES documented in this encounter [...] On Mon03/08/24 at 1952, For 1 dose Given 03/08/2024 8:37 PM CDT 10 mL lidocaine-prilocaine 2.5-2.5 % cream 1 Application (Emla) 1 Application, topical, Once, On Mon03/08/24 at 2004, For 1 dose Given 03/08/2024 8:08 PM CDT 1 Application omjngkubd-pwixtxmqd-ikenegma ne 4-0.05-0.5 % gel 1 mL (L.E.T. [...] 1 Application, topical, Once, On Mon03/08/24 at 2004, For 1 dose 2007 (Given - Provid er: Samina Rios R.N.) PRN Medication Order 03/06/2024 03/07/2024 03/08/2024 nufjuagcv-snmiexrkg-nspbzkxrfx 4-0.05-0.5 % gel 1 mL (L.E.T. Gel) 1 mL, topical, As needed, mild pain or score 1-3 of 10, Starting on Mon03/08/24 at 1952 documented in this encounter Additional Health Concerns Assessment Noted Time PHQ-9 Depression Total Score: 5 10/11/19 24 9:23 PM CDT documented as of this encounter Care Teams Glue Specialty Supervisor Relationship Specialty Start Date End Date Shanae Ugarte APRN, C.N.P. [address] [place] [address] PCP - General 11/24/23 documented as of this encounter
--- OUTSIDE RECORDS SUMMARY | 2024-03-18 07:16 | XMS_ITS | Encounter Summary ---
Author Organization [facility] Address [address] [place] [address] Care Team Providers Care Grounds Maintenance Worker Name Role Phone Shanae Ugarte APRN, C.N.P. Primary Care Provide r Encounter Details Date Type Department Care Team (Late st Contact Info) Description 01/02/2024 Clinical Communication Department of Family Medicine, [facility], in [address] [address] Shanae Ugarte APRN, C.N.P. [address] [place] [address] Social History Tobacco Use Types [...] of this note was faxed to [facility] so that they would have all of the necessary information. documented in this encounter Plan of Treatment Not on file documented as of this encounter Visit Diagnoses Not on filedocumented in this encounter Additional Health Concerns Assessment Noted Time PHQ-9 Depression Total Score: 5 10/11/19 24 9:23 PM CDT documented as of this encounter Care Teams Grounds Maintenance Worker Relationship Specialty Start Date End Date Shanae Ugarte APRN, C.N.P. [address] [place] [address] PCP - General 11/24/23 documented as of this encounter
--- OUTSIDE RECORDS SUMMARY | 2024-03-18 07:16 | XMS_ITS | Clinical Summary ---
Author Organization [facility] Address [address] [place] [address] Care Team Providers Care Pvc Monitor Name Role Phone Shanae Ugarte APRN, C.N.P. Primary Care Provide r Source Comments Patient records contain information from all sites at [facility]. For routine questions regarding patient records, call [phone] during business hours, M-F 8:00 AM - 5:00 PM Central Time. 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 Laceration Forehead Initial (Primary Dx); Laceration Ankle Without Foreign Body Initial Right Discharge Disposition: Home or Self Care 02/26/2024 Refill Department of [facility], [facility], in [address] [address] Shanae Ugarte APRN, C.N.P. Med Refill 01/16/2024 Orders Only [facility] Shanae Ugarte APRN, C.N.P. 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 from Last 3 [...] YEARS OR OLDER) 05/09/2022 Tdap 03/08/2024,02/23/2010 influenza trivalent high dose (HD)(PF) 8,04/30/2014 Family History Medical History Relation Name Comments [...] 177 cm (5' 9.69) 05/31/2023 2:47 PM PRODUCT MARKETING MANAGER Body Mass Index 37.89 05/31/2023 2:47 PM PRODUCT MARKETING MANAGER Plan of Treatment Health Maintenance Due Date Last Done Comments Dilated Eye Exam 1945 Zoster Vaccines (1 of 2) 1997 Hepatitis B Vaccines (1 of 3 - Risk 3-dose series) 2007 Hemoglobin A1C 01/10/2024 10/11/2023, 12/0 02/2023, 05/31/2023, Additional history exists Depression Monitoring (PHQ-9) 02/10/2024 10/11/2023 COVID-19 Vaccine (2 4 season) 2024 05/12/2023, 05/09/2022, 01/30/2022, Additional [...] FIT Discontinued Medical Devices Implanted Type Area Bacon De Rinder Device Identifier Shelf Expiration Date Model / [...] ALBUMIN, RANDOM, U Routine 05/31/2023 2:26 PM PRODUCT MARKETING MANAGER Diabetes Mellitus Type 2 With Diabetic Neuropathy Hyperglycemic (HCC) BASIC METABOLIC PANEL, S/P Routine 05/31/2023 2:22 PM PRODUCT MARKETING MANAGER Monitoring For Therapeutic Drug Therapy THYROID-STIMULATI NG HORMONE-SENSITIVE (S-TSH) Routine 10/25/2021 10:43 AM CDT Hypothyroidism US AORTA AAA SCREENING RAD - Routine (most inpatients and all outpatients) 05/05/2020 10:41 AM CDT Screening Abdominal Aortic Aneurysm HCV AB SCRN W/REFLEX TO HCV PCR, S Routine 10/06/2017 2:29 PM CDT Wellness Screening from Last 3 Months or Most Recently Relevant to Health Maintenance Results * Laceration Repair (03/08/2024 8:32 PM [...] Cervical spine straightening, trace likely chronic/degenerative C4- Q2toxkejkjnatnqvm. Vertebral body heights, disc spaces, dens and facetsintact. Chronic traumatic deformity C6 spinous process tip. Advanced C2-C3disc degeneration and inferior C2 endplate sclerotic permeation. Other moderate multilevel multifactorialspondylotic change. Suspect moderate/marked canal stenosis at C3-J6psuftnsr to spondylosis. Negative for prevertebral edema. Clear lung apices. IMPRESSION: Negative for acute cervical spine fracture. Jaden Serna P.A.-C. IMG CT PROCEDUR ES * CT Head without IV Contrast (03/08/2024 7:11 PM CDT) Anatomical Region Laterality Modality Head, Neuroradiology RST LOS , Neuroradiology AR LOS, Neuroradiology FLA LOS N/A Computed Tomography [...] James M.D., Ph.D. LAB BLOOD ADD-O N [address] [address], [address] [address] * (ABNORMAL) Albumin, Random, Urine (05/31/2023 2:26 PM PRODUCT MARKETING MANAGER) Microalbumin 53.8 mg/L 05/31/2023 2:48 PM PRODUCT MARKETING MANAGER CNFL Creatinine 115 mg/dL 05/31/2023 2:48 PM PRODUCT MARKETING MANAGER CNFL Albumin/Creatinin e Ratio 47(H) <17 mg/g 05/31/2023 2:48 PM PRODUCT MARKETING MANAGER CNFL Urine (Urine, Midstream) 05/31/2023 2:26 PM PRODUCT MARKETING MANAGER 05/31/2023 2:26 PM PRODUCT MARKETING MANAGER Soham James M.D., Ph.D. LAB URINE ORDER SREEKANTH Performing Organization Address [facility]/ZIP Co de Phone Number [address] [address], [address] [address] * S-TSH (Thyroid-Stimulating Hormone - Sensitive) (10/25/2021 10:43 AM CDT) TSH, Sensitive 1.8 0.3 - 4.2 mIU/L 10/25/2021 11:15 AM CDT [facility] Blood (Blood, Venous) 10/25/2021 10:43 AM CDT 10/25/2021 10:47 AM CDT Soham James M.D., Ph.D. LAB BLOOD ADD-O N Performing Organization Address City/[facility]/ZIP Co de Phone Number [address] [address], [address] [address] * US Aorta AAA Screening (05/05/2020 10:41 [...] S Nonreactive Nonreactive 10/09/2017 10:35 AM CDT [facility] Blood 10/06/2017 2:29 PM CDT 10/06/2017 9:44 PM CDT Narrative [facility] - 10/09/2017 10:35 AM CDT Specimen Information: Specimen ID: [id number] Specimen Type: Blood Specimen Collection Start Date: 10/06/2017 ??2:29 PM Specimen Received Date: 10/06/2017 ??9:44 PM Specimen ID: [id number] Specimen Type: Blood Specimen Collection Start Date: 10/06/2017 ??2:29 PM Specimen Received Date: 10/06/2017 ??9:44 PM Soham James M.D., Ph.D. LAB MICROBIOLOG Y - BLOOD ORDERABLES [facility] [place] [address], [facility] from Last 3 Months or Most Recently Relevant to Health Maintenance Care Teams Pvc Monitor Relationship Specialty Start Date End Date Shanae Ugarte APRN, C.N.P. [address] [place] [phone] PCP - General 11/24/23
--- OUTSIDE RECORDS SUMMARY | 2024-03-18 07:16 | XMS_ITS ---
Author Organization [facility] Address [address] [place] [address] Care Team Providers Care Logger Name Role Phone Unavailable Unavailable Unavailable Surgery Details Not on file Complications Check Surgery Details section. Procedure Estimated Blood Loss Check Surgery Details section. Procedure Findings Check Surgery Details section. Procedure Specimens Taken Check Surgery Details section.
--- OUTSIDE RECORDS SUMMARY | 2024-03-18 07:16 | XMS_ITS | Referral Summary ---
Author Organization [facility] Address [address] [place] [address] Care Team Providers Care Supervisor Vegetable Farming Name Role Phone Soham James MD Primary Care Provider [phone] Allergies Active Allergy Reactions Criticality Noted Date [...] Comments Blood Pressure 118/67 08/07/2018 9:20 AM FIRE CAPTAIN Pulse 64 08/07/2018 9:20 AM FIRE CAPTAIN Temperature 36.6 ??C (97.9 ??F) 08/21/2012 8:20 AM CS T Respiratory Rate 20 08/07/2018 9:30 AM FIRE CAPTAIN Oxygen Saturation 91% 08/07/2018 9:27 AM FIRE CAPTAIN Inhaled Oxygen Concentration - - Weight 124.7 kg (275 lb) 08/07/2018 7:52 AM FIRE CAPTAIN Height 177.8 cm (5' 10) 08/07/2018 7:52 AM FIRE CAPTAIN Body Mass Index 39.46 08/07/2018 7:52 AM FIRE CAPTAIN Plan of Treatment Not on file Procedures Procedure Name Priority Date/Time Associated Diagnosis Comments COLONOSCOPY Routine 08/07/2018 8:13 AM FIRE CAPTAIN GLUCOSE BY METER Routine 08/21/2012 7:19 AM FIRE CAPTAIN from Last 3 Months or Most Recently Relevant to Health Maintenance Results * COLONOSCOPY (08/07/2018 8:13 AM FIRE CAPTAIN) [facility] COLONOSCOPY [facility] Endoscopy Department ___ Patient Name: Shin Best ? Procedure Date: 08/07/2018 8:13 AM ? Date of : 1945 ? Admit Type: Outpatient Age: 73 ? Room: 3 Note Status: Finalized ?Attending MD: Abraham Milner , Total Sedation Time: 41 mins of continuous bedside 1:1 Instrument Name: 325 [id number] AdultColonoscope ___ Procedure: ?Colonoscopy Indications: ?Screening for [...] Procedure Code(s): ? --- Professional --- ? 94041, Colonoscopy, flexible; with removal of tumor(s), polyp(s), or ? other lesion(s) by snare technique Diagnosis Code(s): ? --- Professional --- ? Z12.11, Encounter for screening for malignant neoplasm of colon ? K62.1, Rectal polyp CPT copyright 2017 [employer]. All rights reserved. The codes documented in this report are preliminary and upon event planning manager review may be revised to meet current compliance requirements. Abraham Milner, 08/07/2018 9:10:30 AM I was physically present for the entire viewing portion of the exam. Abraham Milner Number of Addenda: 0 Note Initiated On: 08/07/2018 8:13 AM MRN: ?[id number] Procedure Date: ? 08/07/2018 8:13:49 AM Scope Withdrawal Time: 0 hours 13 minutes 27 seconds Total Procedure Duration: 0 hours 40 minutes 58 seconds Estimated Blood Loss: ? Scope In: 8:20:39 AM Scope Out: 9:01:37 AM RADIOLOGY RESULTS 08/07/2018 8:13 AM FIRE CAPTAIN Soham James MD PROCEDURES RADIOLOGY RESULTS * Glucose by meter (08/21/2012 7:19 AM FIRE CAPTAIN) Glucose 79 60 - 99 mg/dL POINT OF CARE TEST, GLUCOSE Comment:Dr/RN Notified 08/21/2012 7:19 AM FIRE CAPTAIN 08/21/2012 7:25 AM FIRE CAPTAIN Stacy Ayers MD [facility] POCT POINT OF CARE TEST, GLUCOSE from Last 3 Months or Most Recently Relevant to Health Maintenance Care Teams Supervisor Vegetable Farming Relationship Specialty Start Date End Date Soham James MD [place] [id number] [place] [address] PCP - General Family Practice 07/25/12
--- OUTSIDE RECORDS SUMMARY | 2024-03-18 07:16 | XMS_ITS | Referral Summary ---
Author Organization [facility] Address [address] [place] [address] Care Team Providers Care Outsole Compressor Name Role Phone Shanae Ugarte APRN, C.N.P. Primary Care Provide r Source Comments Patient records contain information from all sites at [facility]. For routine questions regarding patient records, call [phone] during business hours, M-F 8:00 AM - 5:00 PM Central Time. Record requests for emergency care only can be directed to [phone] at any time.[facility] Encounters Date Type Department Care Team Description 03/08/2024 6:24 PM CDT - 03/08/2024 8:42 PM CDT [facility] [address] [place] [phone] Jaden Serna, P.A.-C. Laceration Forehead Initial (Primary Dx); Laceration Ankle Without Foreign Body Initial Right Discharge Disposition: Home or Self Care 02/26/2024 Refill Department of [facility] Medicine, [facility], in [address] [phone] Shanae Ugarte APRN, C.N.P. Med Refill 01/16/2024 Orders Only [facility] Shanae Ugarte APRN, C.N.P. 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 from Last 3 Months Allergies Active Allergy Reactions Criticality Noted Date Comments Esomeprazole Magnesium Nausea Only 11/12/2012 INCREASED ACID Penicillins Hives (Reselect Reaction) 04/15/2014 Ofpueao-Gnz-Ryl Reductase Inhibitors Myalgia 04/15/2014 Medications Medication Sig Dispensed Refills Start Date End Date Status insulin syringe-needle U-100 1 mL 29 gauge x 1/2 syringe 11/10/2017 Active Accu-Chek Compact Plus Test strip USE TO TEST 3 TIMES DAILY 300 strip 3 07/22/2019 Active blood-glucose meter miscIndications:Racheal reese Mellitus Type 2 With Other Circulatory [...] 810 capsule 3 10/11/2023 5 Active DME CPAPIndications: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 Curriculum ea Sleep Obstructive DME Order 1 each [...] - MODE RNA (12 YEARS AND OLDER) [id number] 05/12/2023 SARS-COV-2 (COVID-19) - MODERNA(Discontinued) SARS-COV-2 (COVID-19) - PFIZ ER (Discontinued)(12 years or older) 06/07/2021 SARS-COV-2 (COVID-19) - PFIZ ER BIVALENT TS(Discontinued)(12 YEARS OR OLDER) 05/09/2022 Tdap 03/08/2024,02/23/2010 influenza trivalent high dose (HD)(PF) 8,04/30/2014 Social History Tobacco Use Types Packs/Day Years [...] 177 cm (5' 9.69) 05/31/2023 2:47 PM BIOMEDICAL SERVICE ENGINEER Body Mass Index 37.89 05/31/2023 2:47 PM BIOMEDICAL SERVICE ENGINEER Plan of Treatment Not on file Medical Devices Implanted Type Area Restaurant Cook Device Identifier Shelf Expiration Date Model / [...] ALBUMIN, RANDOM, U Routine 05/31/2023 2:26 PM BIOMEDICAL SERVICE ENGINEER Diabetes Mellitus Type 2 With Diabetic Neuropathy Hyperglycemic (HCC) BASIC METABOLIC PANEL, S/P Routine 05/31/2023 2:22 PM BIOMEDICAL SERVICE ENGINEER Monitoring For Therapeutic Drug Therapy THYROID-STIMULATI NG [...] consolidative process, pleural effusion or appreciablepneumothorax. Jaden Sharma-Josh IMG DIAGNOSTIC IMAGING PROCEDURES * CT Cervical [...] Cervical spine straightening, trace likely chronic/degenerative C4- N4qbzbzeictkcfyec. Vertebral body heights, disc spaces, dens and facetsintact. Chronic traumatic deformity C6 spinous process tip. Advanced C2-C3disc degeneration and inferior C2 endplate sclerotic permeation. Other moderate multilevel multifactorialspondylotic change. Suspect moderate/marked canal stenosis at C3-R9kgsjgjlt to spondylosis. Negative for prevertebral edema. Clear lung apices. IMPRESSION: Negative for acute cervical spine fracture. Jaden PROCTOR CT PROCEDUR ES * CT Head without [...] - 5.6 % 10/11/2023 7:26 PM CDT [facility] Comment: Hemoglobin A1c values greater than or equal to 6.5 percent are diagnostic for diabetes mellitus. ??Diagnosis should be confirmed by repeat testing. ??In diabetic patients, HbA1c goals should be discussed with healthcare provider. Blood (Blood, Venous) 10/11/2023 7:12 PM CDT 10/11/2023 7:13 PM CDT Soham James M.D., Ph.D. LAB BLOOD ADD-O N [facility] [address] [place] [address], [facility] in [address] [address] * (ABNORMAL) Albumin, Random, Urine (05/31/2023 2:26 PM BIOMEDICAL SERVICE ENGINEER) Microalbumin 53.8 mg/L 05/31/2023 2:48 PM BIOMEDICAL SERVICE ENGINEER CNFL Creatinine 115 mg/dL 05/31/2023 2:48 PM BIOMEDICAL SERVICE ENGINEER CNFL Albumin/Creatinin e Ratio 47(H) <17 mg/g 05/31/2023 2:48 PM BIOMEDICAL SERVICE ENGINEER CNFL Urine (Urine, Midstream) 05/31/2023 2:26 PM BIOMEDICAL SERVICE ENGINEER 05/31/2023 2:26 PM BIOMEDICAL SERVICE ENGINEER Soham James M.D., Ph.D. LAB URINE ORDER SREEKANTH Performing Organization Address [facility] [place] [address], [place] [address] * S-TSH (Thyroid-Stimulating Hormone - Sensitive) (10/25/2021 10:43 AM CDT) [facility] TSH, Sensitive 1.8 0.3 - 4.2 mIU/L 10/25/2021 11:15 AM CDT CNFL Blood (Blood, Venous) 10/25/2021 10:43 AM CDT 10/25/2021 10:47 AM CDT Soham James M.D., Ph.D. LAB BLOOD ADD-O N Performing Organization Address [facility]/[place] [address], [place] [address] * US Aorta AAA Screening (05/05/2020 10:41 [...] S Nonreactive Nonreactive 10/09/2017 10:35 AM CDT [facility] Blood 10/06/2017 2:29 PM CDT 10/06/2017 9:44 PM CDT Narrative [facility] - 10/09/2017 10:35 AM CDT Specimen Information: Specimen ID: [id number] Specimen Type: Blood Specimen Collection Start Date: 10/06/2017 ??2:29 PM Specimen Received Date: 10/06/2017 ??9:44 PM Specimen ID: [id number] Specimen Type: Blood Specimen Collection Start Date: 10/06/2017 ??2:29 PM Specimen Received Date: 10/06/2017 ??9:44 PM Soham James M.D., Ph.D. LAB MICROBIOLOG Y - BLOOD ORDERABLES [facility] [address] [place] [address], [facility] from Last 3 Months or Most Recently Relevant to Health Maintenance Care Teams Outsole Compressor Relationship Specialty Start Date End Date Shanae Ugarte APRN, C.N.P. [address] [place] [phone] PCP - General 11/24/23
--- OUTSIDE RECORDS SUMMARY | 2024-03-18 07:16 | XMS_ITS | Encounter Summary ---
Author Organization [facility] Address [address] [place] [address] Care Team Providers Care Ship Joiner Name Role Phone Shanae Ugarte APRN, C.N.P. Primary Care Provide r Encounter Details Date Type Department Care Team (Late st Contact Info) Description 01/16/2024 Orders Only [facility] MNT Shanae Ugarte, ARRON, C.N.P. [address] [place] [phone] Diabetes Mellitus Type 2 With [...] documented as of this encounter Care Teams Ship Joiner Relationship Specialty Start Date End Date Shanae Ugarte APRN, C.N.P. [address] [place] [phone] PCP - General 11/24/23 documented as of this encounter
--- OUTSIDE RECORDS SUMMARY | 2024-03-18 07:16 | XMS_ITS | Encounter Summary ---
Author Organization [facility] Address [address] [place] [address] Care Team Providers Care Computer Technology Trainer Name Role Phone Soham James MD Primary Care Provider [phone] Encounter Details Date Type Department Care Team (Late st Contact Info) Description 2023 Telephone [facility] Podiatry [address] [place] [address] Piper Castanon, DPMikki, Podiatry/Foot and Ankle Surgery [address] [place], [place] [phone] Social History Tobacco Use Types Packs/Day Years [...] encounter Miscellaneous Notes * Telephone Encounter - aMrk Rodrigez - 2023 9:27 AM CST Consent to communicate found on file. Spoke with patient about scheduling him due to the referral we received from Dr. Soham James ([facility]) via fax this morning. Scheduled patient to see Dr. Castanon on June 20 in [place]. Patient requested the building address be sent to him via mail, so a letter was sent out. Patient was appreciative of the call. Dionte Rodrigez, Visit Lapidarist MOTIVE REPAIR TECHNICIAN documented in this encounter Plan of Treatment Not on file documented as of this encounter Visit Diagnoses Not on filedocumented in this encounter Care Teams Computer Technology Trainer Relationship Specialty Start Date End Date Soham James MD [facility] [address] [place] [address] PCP - General Family Practice 07/25/12 documented as of this encounter
--- OUTSIDE RECORDS SUMMARY | 2024-03-18 07:16 | XMS_ITS | Clinical Summary ---
Author Organization [facility] Address [place], [place] [address] Care Team Providers Care Banbury Operator Name Role Phone Hao Drew MD Unavailable [phone] Desiree Black MD Primary Care Provider + Allergies Active Allergy Reactions Criticality Noted Date Comments Esomeprazole Magnesium Nausea Only 11/12/2012 INCREASED ACID Penicillins Hives 04/15/2014 Wacsana-Dfi-Gvp Reductase Inhibitors Nausea Only,Myalgia 04/15/2014 Medications Medication [...] mellitus wit h diabetic neuropathy, unspecified 05/23/2016 Overview (08/14/2019): Overview: DM2 Neuropathy Uncontrolled Acquired hypothyroidism 05/05/2015 Hyperlipidemia 05/05/2015 CAD (coronary artery disease), curyung coronary a rtery 10/30/2014 Systolic murmur 09/29/2014 [...] Type Department Care Team Description 02/12/2024 Telephone [facility] [address] [place] [address] Hao Drew MD Results (labs) 02/05/2024 4:40 PM CDT Orders Only [facility] [address] [place] [address] Lab, Appv Lab 02/05/2024 4:00 PM CDT Office Visit [facility] [address] [place] [address] Hao Drew MD Concerns (Andrew denies chest pain, shortness of breath /Patient states he has been having some dizziness ) 02/05/2024 Travel 12/27/2023 [facility] [address] [place] [address] [facility] Care Coordination [...] ??C (98.1 ??F) 08/17/2023 1 0:43 AM 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 REPAIRER Respiratory Rate 16 02/05/2024 4:04 PM CDT [...] 9, 08/18/2008 Medical Devices Implanted Type Area Np Device Identifier Shelf Expiration Date Model / Serial / Lot Cmnt Bone Simplex Hv Gentamicin - [id number] Implanted:Qty: 2 on 04/28/2014 by Amrik Falcon MD at [facility] Left: Knee [employer] 11/06/2014 6195-1-001 # / / [id number] Patella 64v95am Triathlon Asymmetric X3 - [id number] Implanted:Qty: 1 on 04/28/2014 by Amrik Falcon MD at [facility] Left: Knee [employer] 02/06/2019 5551-G-350 # / / [id number] Fem Lt Sz7 Triathlon Post Stbznon Pors - [id number] Implanted:Qty: 1 on 04/28/2014 by Amrik Falcon MD at [facility] Left: Knee [employer] 02/06/2018 5515-F-701 # / / [id number] Baseplate Tib Sz6 Triathlon Pe - [id number] Implanted:Qty: 1 on 04/28/2014 by Amrik Falcon MD at [facility] Left: Knee [employer] 12/07/2018 5521-B-600 # / / KRDE Insert Knee Sz6 11mm Triathlonpost Stbz X3 - [id number] Implanted:Qty: 1 on 04/28/2014 by Amrik Falcon MD at [facility] Left: Knee [employer] 02/06/2019 5532-G-611 # / / [id number] Triathlon X3 Asymmetric Patella R92t76ad - [id number] Implanted:Qty: 1 on 08/14/2019 by Amrik Falcon MD at [facility] Right: Knee [employer] 02/19/2024 5551-G-381 -E / / [id number] Triathlon X3 Tibial Bearing Insert Cs Valery 5 Typ Cs Thkns 11mm - [id number] Implanted:Qty: 1 on 08/14/2019 by Amrik Falcon MD at [facility] Right: Knee [employer] 03/24/2024 5531-G-511 -E / / [id number] Cmnt Bone Simplex Hv - [id number] Implanted:Qty: 1 on 08/14/2019 by Amrik Falcon MD at [facility] Right: Knee [employer] 12/07/2020 6194-1-001 # / / [id number] Cmnt Bone Simplex Hv Gentamicin - [id number] Implanted:Qty: 1 on 08/14/2019 by Amrik Falcon MD at [facility] Right: Knee [employer] 06/08/2020 6195-1-001 # / / [id number] Fem Rt Sz6 Triathlon Cruc Ret Co Cr - [id number] Implanted:Qty: 1 on 08/14/2019 by Amrik Falcon MD at [facility] Right: Knee [employer] 01/11/2024 5510-F-602 # / / [id number] Baseplate Tib Sz5 Triathlon Pe - [id number] Implanted:Qty: 1 on 08/14/2019 by Amrik Falcon MD at [facility] Right: Knee [employer] 04/17/2024 5521-B-500 # / / [id number] Procedures Procedure Name Priority Date/Time Associated Diagnosis Comments BASIC METABOLIC PANEL Routine 02/05/2024 4:41 PM CDT Stage 3 chronic kidney disease, unspecified whether stage 3a or 3b CKD (HC) from Last 3 Months Results * (ABNORMAL) BASIC METABOLIC PANEL (02/05/2024 4:41 PM CDT) SODIUM 139 136 - 145 mmol/L 02/06/2024 9:25 AM CDT [facility] POTASSIUM 4.3 3.5 - 5.1 mmol/L 02/06/2024 9:25 AM CDT [facility] CHLORIDE 99 98 - 107 mmol/L 02/06/2024 9:25 AM CDT [facility] CO2,TOTAL 27 22 - 29 mmol/L 02/06/2024 9:25 AM CDT [facility] ANION GAP 13 5 - 18 02/06/2024 9:25 AM CDT [facility] GLUCOSE 156(H) 70 - 99 mg/dL 02/06/2024 9:25 AM CDT [facility] CALCIUM 10.1 8.8 - 10.2 mg/dL 02/06/2024 9:25 AM CDT [facility] BUN 36(H) 8 - 23 mg/dL 02/06/2024 9:25 AM CDT [facility] CREATININE 2.09(H) 0.70 - 1.20 mg/dL 02/06/2024 9:25 AM CDT [facility] BUN/CREAT RATIO 17 10 - 20 9:25 AM CDT [facility] eGFR 32(L) >90 mL/min/1.7 3m2 02/06/2024 9:25 AM CDT [facility] Comment:As of 2021, eG [...] 4:41 PM CDT Hao Drew MD CHEMISTRY [facility] [address] [place] [address], from Last 3 Months Advance Directives * [...] 11:50 PM 08/09/2018 3:08 PM Care Teams Banbury Operator Relationship Specialty Start Date End Date Desiree Black MD [address] [place] [address] PCP - General Family Practice 02/05/24 Hao Drew MD [address] [place] [address] [address] [place] [address] Cardiology Cardiovascular Disease 12/30/19
--- OUTSIDE RECORDS SUMMARY | 2024-03-18 07:16 | XMS_ITS | Clinical Summary ---
Author Organization [facility] Address [address] [place] [address] Care Team Providers Care Collection Advisor Name Role Phone Soham James MD Primary Care Provider [phone] Allergies Active Allergy Reactions Criticality Noted Date [...] Comments Blood Pressure 118/67 08/07/2018 9:20 AM TRANSPLANTER Pulse 64 08/07/2018 9:20 AM TRANSPLANTER Temperature 36.6 ??C (97.9 ??F) 08/21/2012 8:20 AM CS T Respiratory Rate 20 08/07/2018 9:30 AM TRANSPLANTER Oxygen Saturation 91% 08/07/2018 9:27 AM TRANSPLANTER Inhaled Oxygen Concentration - - Weight 124.7 kg (275 lb) 08/07/2018 7:52 AM TRANSPLANTER Height 177.8 cm (5' 10) 08/07/2018 7:52 AM TRANSPLANTER Body Mass Index 39.46 08/07/2018 7:52 AM TRANSPLANTER Plan of Treatment Health Maintenance Due Date [...] calendar year) 2023 COVID-19 Vaccine (2022- season) 2024 05/12/2023, 05/09/2022, 01/29/2022, Additional history exists INFLUENZA [...] Diagnosis Comments COLONOSCOPY Routine 08/07/2018 8:13 AM TRANSPLANTER GLUCOSE BY METER Routine 08/21/2012 7:19 AM TRANSPLANTER from Last 3 Months or Most Recently Relevant to Health Maintenance Results * COLONOSCOPY (08/07/2018 8:13 AM TRANSPLANTER) COLONOSCOPY [facility] ___ Patient Name: Shin Best ? Procedure Date: 08/07/2018 8:13 AM ? Date of : 1945 ? Admit Type: Outpatient Age: 73 ? Room: 3 Note Status: Finalized ?Attending MD: Abraham Milner , Total Sedation Time: 41 mins of continuous bedside 1:1 Instrument Name: 325 [id number] AdultColonoscope ___ Procedure: ?Colonoscopy Indications: ?Screening for [...] Procedure Code(s): ? --- Professional --- ? 53049, Colonoscopy, flexible; with removal of tumor(s), polyp(s), or ? other lesion(s) by snare technique Diagnosis Code(s): ? --- Professional --- ? Z12.11, Encounter for screening for malignant neoplasm of colon ? K62.1, Rectal polyp CPT copyright 2017 [employer]. All rights reserved. The codes documented in this report are preliminary and upon feather separator review may be revised to meet current compliance requirements. Abraham Milner, 08/07/2018 9:10:30 AM I was physically present for the entire viewing portion of the exam. Abraham Milner Number of Addenda: 0 Note Initiated On: 08/07/2018 8:13 AM MRN: ?[id number] Procedure Date: ? 08/07/2018 8:13:49 AM Scope Withdrawal Time: 0 hours 13 minutes 27 seconds Total Procedure Duration: 0 hours 40 minutes 58 seconds Estimated Blood Loss: ? Scope In: 8:20:39 AM Scope Out: 9:01:37 AM RADIOLOGY RESULTS 08/07/2018 8:13 AM TRANSPLANTER Soham James MD PROCEDURES RADIOLOGY RESULTS * Glucose by meter (08/21/2012 7:19 AM TRANSPLANTER) Glucose 79 60 - 99 mg/dL POINT OF CARE TEST, GLUCOSE Comment:Dr/RN Notified 08/21/2012 7:19 AM TRANSPLANTER 08/21/2012 7:25 AM TRANSPLANTER Stacy Ayers MD LAB - AK[facility] POCT Performing Organization Address City/[facility]/ZIP Co de Phone Number POINT OF CARE TEST, GLUCOSE from Last 3 Months or Most Recently Relevant to Health Maintenance Care Teams Collection Advisor Relationship Specialty Start Date End Date Soham James MD [facility] [address] [place] [address] PCP - General Family Practice 07/25/12
[2024-03-18 07:25] LABS: Ethanol* < 0.01 % (0.01-0.03); NT Pro B Type NatriureticPept* 449 pg/mL
[2024-03-18 07:26] LABS: Bacteria Urine Few; RBC Urine 0-2 (0-2); Squamous Epithelial Cell Urine Few (None-Few); WBC Urine 0-2 (0-5)
[2024-03-18 07:26] LABS: Troponin I* 0.01 ng/mL (0.01-0.04)
[2024-03-18 07:31] LABS: INR 1.01 (0.91-1.10); Partial Thromboplastin Time* 27 Seconds (23-33); Prothrombin Time 13.9 Seconds
[2024-03-18] MEDS: 0.9 % SODIUM CHLORIDE 1000 ml 1,000 ML IV (07:41)
[2024-03-18] MEDS: ACETAMINOPHEN 500 MG TABLET 1000 MG PO (07:46)
--- NOTE | 2024-03-18 07:49 | CRLHL7_ITS ---
For Patients: As a result of the Century Cures Act, medical imaging exams and procedure reports are released immediately into your electronic medical record. You may view this report before your referring provider. If you have questions, please contact your health care provider. INDICATION: Fevers and chills. Altered mental status. COMPARISON: None of the abdomen and pelvis TECHNIQUE: CT examination of the abdomen and pelvis was performed following the uneventful intravenous administration of 95 cc of Isovue 370. Thin section axial images were obtained from the lung bases through the pubic symphysis. Oral contrast was not administered. Please note that all CT scans at this facility use dose modulation, iterative reconstruction, and/or weight-based dosing when appropriate to reduce radiation dose to as low as reasonably achievable. FINDINGS: LUNG BASES: Trace linear opacities at the lung bases consistent with atelectasis. Heart size normal. Atherosclerotic vascular and valvular calcifications associated with the heart.Incidental bilateral gynecomastia. LIVER/BILIARY SYSTEM:The liver is normal in size and configuration. There is no focal mass and there is no intra- or extra hepatic biliary ductal dilatation.Probable steatosis. Normal-appearing gallbladder ADRENALS: Normal KIDNEYS, URETERS and BLADDER:The kidneys appear normal. The ureters are of normal caliber and not abnormally dilated. There is a Osman catheter in the bladder. SPLEEN:Normal appearance. PANCREAS: Appears normal. RETROPERITONEUM and MESENTERY: There is no mass, adenopathy or aortic aneurysm. Atherosclerotic vascular calcifications GASTROINTESTINAL SYSTEM: There is no evidence of diverticulitis, colitis, mechanical obstruction, or appendicitis. The small bowel as visualized appears normal.Redundant sigmoid. Scattered diverticulosis. No evidence of volvulus or other acute GI finding PELVIS: No mass, adenopathy or free fluid. OSSEOUS STRUCTURES and ABDOMINAL WALL: There is an age-appropriate appearance of the osseous structures.There is induration of the anterior abdominal wall at and near the umbilicus. The nausea this uncertain and could be inflammatory such as cellulitis. There is no collection in this area. Correlate directly with the clinical findings in this area. OTHER: No free fluid or free air. IMPRESSION: 1. Cutaneous and subcutaneous induration in the region of the umbilicus. No collection. This could be inflammatory though it may be chronic. Correlate with direct physical findings in this area. No hernia. 2. Other incidental nonacute appearing findings as discussed in the body of the report Please note that all CT scans at this facility use dose modulation, iterative reconstruction, and/or weight-based dosing when appropriate to reduce radiation dose to as low as reasonably achievable. Dictated by Prosper Smith MD @ 03/18/2024 8:49:48 AM (Electronically Signed)
--- NOTE | 2024-03-18 07:49 | CRLHL7_ITS ---
For Patients: As a result of the Century Cures Act, medical imaging exams and procedure reports are released immediately into your electronic medical record. You may view this report before your referring provider. If you have questions, please contact your health care provider. Indication: Fevers, chills, altered mental status. Technique: CT pulmonary arteriography of the chest was performed following the administration of 95 mL Isovue 370. Comparison: Same day chest radiograph. Findings: Lungs and pleura: Mild subsegmental atelectasis in the right lower lobe in lingula. No focal consolidation. No pleural effusion or pneumothorax. 6 mm right upper lobe pulmonary nodule (12/05). Heart and great vessels: The heart is normal in size. No pericardial effusion. Extensive atherosclerotic coronary artery calcifications and mild atherosclerotic aortic calcifications. Aorta and main pulmonary artery are normal in caliber. No evidence of right heart strain. Pulmonary artery opacification is adequate. No evidence of pulmonary embolism. Thyroid and mediastinum: Thyroid is normal. No mediastinal lymphadenopathy by size criteria. Chest wall: Bilateral gynecomastia. Visualized upper abdomen: Unremarkable. Bones: Multilevel degenerative disc disease. Diffuse idiopathic skeletal hyperostosis. Impression: 1. No evidence of pulmonary embolism. 2. No acute abnormality identified in the chest. 3. Right upper lobe pulmonary nodule measuring [address] follow-up in 6-12 months. Please note that all CT scans at this facility use dose modulation, iterative reconstruction, and/or weight-based dosing when appropriate to reduce radiation dose to as low as reasonably achievable. Dictated by Farhana Hamm MD @ 03/18/2024 8:52:45 AM (Electronically Signed)
[2024-03-18 07:58] LABS: PCR FLU A Negative PCR FLU A (Negative); PCR FLU B Negative PCR FLU B (Negative); PCR RSV Negative PCR RSV (Negative); SARS PCR* Negative SARS-CoV-2 (Negative)
[2024-03-18] MEDS: CEFEPIME HCL 2 GM in 0.9 % SODIUM CHLORIDE Mini-bag 100 ML IVPB (08:01)
[2024-03-18] MEDS: VANCOMYCIN 2 GM/400 ML 2 GM/400 ML PIGGYBACK IVPB (08:47)
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
--- NOTE | 2024-03-18 12:07 | PC.NURSE ---
Definity 2ml administered via IV. Patient tolerated well. Lot # [id number] Exp 12/2024.
[2024-03-18] MEDS: PERFLUTREN LIPID MICROSPHERES 2 ML VIAL IV (12:08)
[2024-03-18] MEDS: OMEPRAZOLE 20 MG CAPSULE DR PO (13:58)
[2024-03-18] MEDS: INSULIN ASPART 100 UNIT/ML 16 UNIT SUBCUT (14:06)
--- NOTE | 2024-03-18 14:48 | PC.NURSE ---
End of Shift: Patient pleasant and cooperative, arrived to the floor about 0922. Patient oriented to self and place, slightly of on time. Patient hypertensive but stable, lungs clear, BS WNL, IV SL and intact. Patient has not been up from bed since admission. Osman intact and draining clear straw urine. Patient tolerating regular diet eating all of lunch. Blood sugar in afternoon 204, scheduled 10 units given. Tele=NS with BBB. Patient with 3 meplix on right lower extremity, 1 of the 2 wounds contains stitches. One mepilex on right wrist and left side of face under eye reddened and swollen, it is outlined.
--- NOTE | 2024-03-18 15:31 | RESP.RT ---
Home CPAP checked and found clean and in good working order. Patient water chamber filled, patient able to place on/off mask as needed.
[2024-03-18] MEDS: INSULIN ASPART 100 UNIT/ML SUBCUT ×2 (18:15→20:07)
[2024-03-18] MEDS: INSULIN ASPART 100 UNIT/ML 10 UNIT SUBCUT (18:16)
[2024-03-18] MEDS: ACETAMINOPHEN 325 MG TABLET 975 MG PO (18:18)
[2024-03-18] MEDS: POTASSIUM CHLORIDE 10 MEQ CAPSULE ER 20 MEQ PO (20:05)
[2024-03-18] MEDS: ENOXAPARIN 30 MG/0.3ML INJ SUBCUT (20:05)
[2024-03-18] MEDS: SODIUM CHLORIDE 0.9 % (FLUSH) 10 ML SYRINGE 5 ML IVF (20:06)
[2024-03-18] MEDS: DOXYCYCLINE HYCLATE 100 MG PO (20:06)
[2024-03-18] MEDS: INSULIN GLARGINE,HUM.REC.ANLOG 100 UNIT/ML INSULN.PEN 50 UNIT SUBCUT (20:06)
[2024-03-18] MEDS: GABAPENTIN 100 MG CAPSULE 200 MG PO (20:08)
[2024-03-19] VITALS (7 sets, daily range): BP systolic 140–186; BP diastolic 74–99; PULSE 66–82; RESP 14–18; TEMP 36.6–37.2; O2SAT 96–99
[2024-03-19] MEDS: OMEPRAZOLE 20 MG CAPSULE DR PO (06:18)
[2024-03-19 06:36] LABS: Basophils Absolute Auto 0.03 K/uL (0.00-0.30); Basophils Percent Auto 0.4 % (0.0-3.0); Eosinophils Absolute Auto 0.39 K/uL (0.00-0.50); Eosinophils Percent Auto 4.7 % (0.0-7.0); Hematocrit 36.1 % (37.0-53.0); Immature Granulocytes Abs Auto 0.07 K/uL (0.00-0.30); Immature Granulocytes Pct Auto 0.8 %; Lymphocytes Percent Auto 13.4 % (20-44); Mean Corpuscular HGB Conc 33 gm/dL (32-36); Mean Corpuscular Hemoglobin 29 pg (26-34); Mean Corpuscular Volume 86 fL (80-100); Monocytes Percent Auto 14.3 % (0.0-11.0); Neutrophils Absolute Auto 5.48 K/uL (1.7-7.0); Neutrophils Percent Auto 66.4 % (42.0-72.0); Platelet Count* 299 K/uL (140-440); RDW Coefficient of Variation % 14.2 % (11.5-15.5); Red Blood Count 4.21 m/uL (4.30-5.90); White Blood Count* 8.26 K/uL (4.50-11.00)
[2024-03-19 06:43] LABS: Slide Review Reflex No
--- NOTE | 2024-03-19 06:43 | PC.NURSE ---
19-: pleasant and cooperative. Occasionally forgetful. A x 1 with gb and walker. Osman patent and draining. 2x large loose stools, pt reports loose stools daily and since ?forever?. Stool appears to be grainy/flakey. 4 mepis on RLE. One mepi on R wrist. Dried drainage to R side of face, scientific technical writer cleaned as much as the pt tolerated. 1 Suture noted to R side of face.?Afebrile this shift. BP trending up, home meds to resume this AM ? included BP medication. ?Tele ? NSR with BBB & Occasional PVCs.
[2024-03-19 06:51] LABS: Albumin* 3.6 g/dL (3.3-5.0); Chloride* 103 mmol/L (96-114); Potassium* 3.2 mmol/L (3.6-5.1); Sodium* 134 mmol/L (135-149)
[2024-03-19 06:53] LABS: Creatinine* 1.2 mg/dL (0.5-1.5); Est. Creatinine Clearance* 52.37; Estimated Glomerular Filt Rate 63 ml/min
[2024-03-19 06:54] LABS: Alanine Aminotransferase* 14 U/L (4-50); Alkaline Phosphatase* 94 U/L (40-150); Anion Gap 8 mEq/L (7-15); Aspartate Amino Transferase* 17 U/L (12-35); Bilirubin Total* 0.9 mg/dL (0.1-1.5); Blood Urea Nitrogen* 19 mg/dL (7-30); Carbon Dioxide* 23 mmol/L (20-32); Total Protein* 6.6 g/dL (6.0-8.3)
[2024-03-19 06:55] LABS: Calcium* 9.1 mg/dL (8.4-10.6); Glucose* 144 mg/dL (60-115)
[2024-03-19 06:57] LABS: C Reactive Protein* 1.5 mg/dL (0.5-1.0)
[2024-03-19 07:02] LABS: Procalcitonin* 0.28 ng/mL (<0.50)
[2024-03-19] MEDS: INSULIN ASPART 100 UNIT/ML 10 UNIT SUBCUT ×2 (08:24→12:22)
[2024-03-19] MEDS: INSULIN GLARGINE,HUM.REC.ANLOG 100 UNIT/ML INSULN.PEN 70 UNIT SUBCUT (08:25)
[2024-03-19] MEDS: FUROSEMIDE 40 MG TABLET PO (09:24)
[2024-03-19] MEDS: DOXYCYCLINE HYCLATE 100 MG PO ×2 (09:24→20:16)
[2024-03-19] MEDS: FOLIC ACID 1 MG TABLET PO (09:24)
[2024-03-19] MEDS: FINASTERIDE 5 MG TABLET PO (09:24)
[2024-03-19] MEDS: TAMSULOSIN HCL 0.4 MG CAPSULE PO (09:24)
[2024-03-19] MEDS: LEVOTHYROXINE 100 MCG TABLET PO (09:24)
[2024-03-19] MEDS: DULOXETINE 30 MG CAPSULE DR 60 MG PO (09:24)
[2024-03-19] MEDS: ROSUVASTATIN CALCIUM 10 MG TABLET 20 MG PO (09:25)
[2024-03-19] MEDS: carvediloL 6.25 MG TABLET PO (09:25)
[2024-03-19] MEDS: GABAPENTIN 100 MG CAPSULE 200 MG PO ×2 (09:25→20:16)
[2024-03-19] MEDS: CLOPIDOGREL 75 MG TABLET PO (09:25)
[2024-03-19] MEDS: SODIUM CHLORIDE 0.9 % (FLUSH) 10 ML SYRINGE 5 ML IVF ×2 (09:25→20:22)
[2024-03-19] MEDS: POTASSIUM CHLORIDE 10 MEQ CAPSULE ER 20 MEQ PO ×2 (09:25→20:16)
[2024-03-19] MEDS: SPIRONOLACTONE 25 MG TABLET PO (09:27)
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
[2024-03-19] MEDS: VANCOMYCIN 1.5 GM/300 ML 1.5 GM/300 ML PIGGYBACK IVPB (09:44)
[2024-03-19] MEDS: 0.9 % SODIUM CHLORIDE 250 ml IV (11:17)
[2024-03-19] MEDS: INSULIN ASPART 100 UNIT/ML SUBCUT ×3 (12:22→20:20)
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
[2024-03-19] MEDS: CEFAZOLIN 2 GM in 0.9 % SODIUM CHLORIDE Mini-bag 100 ML IVPB ×2 (14:18→21:15)
--- NOTE | 2024-03-19 18:18 | PC.NURSE ---
End of shift [id number]: Pt alert and oriented x4. pleasant and cooperative. Occasionally forgetful. A x 1 with gb and walker. Tolerating diet/fluids well. Pt denies CP/N/V/D/SOB/PAIN. Osman discontinued. 3 mepis on R wrist, R ankle, R overton. Changed and redressed per wound orders. Dried drainage to R side of face, L side of face is staying within the borders. Redness noted. Sutures removed. ?TELE: NSR with BBB.
[2024-03-19] MEDS: ENOXAPARIN 30 MG/0.3ML INJ SUBCUT (20:16)
[2024-03-19] MEDS: INSULIN GLARGINE,HUM.REC.ANLOG 100 UNIT/ML INSULN.PEN 50 UNIT SUBCUT (20:19)
[2024-03-20] VITALS (11 sets, daily range): BP systolic 157–188; BP diastolic 76–94; PULSE 65–81; RESP 14–18; TEMP 36.4–36.9; O2SAT 97–100
[2024-03-20] MEDS: CEFAZOLIN 2 GM in 0.9 % SODIUM CHLORIDE Mini-bag 100 ML IVPB ×3 (05:14→21:41)
[2024-03-20] MEDS: SODIUM CHLORIDE 0.9 % (FLUSH) 10 ML SYRINGE 5 ML IVF ×3 (05:14→20:37)
[2024-03-20] MEDS: OMEPRAZOLE 20 MG CAPSULE DR PO (05:51)
[2024-03-20] MEDS: LEVOTHYROXINE 100 MCG TABLET PO (05:52)
--- NOTE | 2024-03-20 06:48 | PC.NURSE ---
Pt alert and oriented to self only. Afebrile. Room air. Pt denies pain, chest pain, SOB, and N/V. Pt?s left eye redness has not exceeded outline. Right great toe, right ankle, right overton and wrist dressings CDI.?Pt is up SBA with walker, voiding and tolerating a regular diet. ?
[2024-03-20] MEDS: TAMSULOSIN HCL 0.4 MG CAPSULE PO (08:29)
[2024-03-20] MEDS: DULOXETINE 30 MG CAPSULE DR 60 MG PO (08:29)
[2024-03-20] MEDS: DOXYCYCLINE HYCLATE 100 MG PO ×2 (08:29→20:32)
[2024-03-20] MEDS: FOLIC ACID 1 MG TABLET PO (08:29)
[2024-03-20] MEDS: CLOPIDOGREL 75 MG TABLET PO (08:29)
[2024-03-20] MEDS: ROSUVASTATIN CALCIUM 10 MG TABLET 20 MG PO (08:30)
[2024-03-20] MEDS: FUROSEMIDE 40 MG TABLET PO (08:30)
[2024-03-20] MEDS: SPIRONOLACTONE 25 MG TABLET PO (08:30)
[2024-03-20] MEDS: carvediloL 6.25 MG TABLET PO (08:30)
[2024-03-20] MEDS: FINASTERIDE 5 MG TABLET PO (08:30)
[2024-03-20] MEDS: POTASSIUM CHLORIDE 10 MEQ CAPSULE ER 20 MEQ PO ×2 (08:30→20:31)
[2024-03-20] MEDS: GABAPENTIN 100 MG CAPSULE 200 MG PO ×2 (08:30→20:32)
--- NOTE | 2024-03-20 10:48 | PC.SOCIAL ---
Pt. did not answer his cell phone # [phone]. Spoke with pt.'s spouse Denia at [phone]. She was concerned pt. was being discharged home today and last evening when she was visiting pt. was still confused. Confirmed pt. was not being discharged today and that pt.'s next appointment at the wound care clinic is on 03/27 @ 10:[address] Barrow. Denia states she is able to get pt. to his wound care appointments and they have no additional needs for resources at home for pt.
--- NOTE | 2024-03-20 12:13 | CRLHL7_ITS ---
For Patients: As a result of the Century Cures Act, medical imaging exams and procedure reports are released immediately into your electronic medical record. You may view this report before your referring provider. If you have questions, please contact your health care provider. Indication: Altered mental status. Technique: Multiplanar, multisequence MRI of the brain was performed without intravenous contrast. Comparison: CT head 03/18/2024. Findings: The corpus callosum, pituitary gland clivus appear intact. Mild degenerative change visualized upper cervical spine. There is no restricted diffusion. No intracranial hemorrhage. The ventricles are proportionate to the cerebral sulci. The 4th ventricle appears midline. The basal cisterns appear patent. No abnormal extra-axial fluid collection identified. Mild parenchymal volume loss. Severe scattered T2 FLAIR hyperintense foci within the subcortical and periventricular white matter, favored to represent chronic ischemic microvascular disease. There is no intracranial mass, abnormal mass-effect or midline shift identified. Mild paranasal sinus mucosal disease. Impression: 1. No acute/subacute infarct. 2. Severe chronic ischemic microvascular disease. Dictated by Hai Talbert MD @ 03/20/2024 6:04:19 PM (Electronically Signed)
--- NOTE | 2024-03-20 12:35 | W.PM.INFD_ITS ---
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 myalgia, thrombocytopenia, leukopenia, elevated AST and ALT which is not the case here, therefore I would not suggest empiric treatment with Rifampin. -To follow up final blood and urine cx results (they have been negative to date) -Follow up pending tickborn panel Lyme, Ehlichia and anaplasma PCRs (of note, from EMR, pt with Hx lyme, please note that Lyme screening serology can remain positive after an initial infection, a confirmatory test with a Western blot is needed if positive screening test). -Continue IV cefazolin for treatment of non-purulent facial cellulitis/possible facial Erysipelas and when substantial clinical improved is noted, consider switching to PO Keflex. Please note, staph aureus erysipelas of the face can mimic strep erysipelas of an extremity, pt is already on doxy (I agree with switching from IV vancomycin due to CARLENE), doxy would treat possible staph aureus infection while covering for tick-born disease. -Consider Neurology evaluation due to persistent confusion. -While pt remains on IV Abx, please monitor labs with cbc/diff, BMP. -The duration of treatment for facial cellulitis depends on the severity and extent of the infection, it seems that the pt has a mild-moderate cellulitis for which 7 days of therapy might be sufficient. When pt is ready for discharge he can be switched to oral Keflex to complete the Abx course, please follow up results of tick-borne disease PCR panel, if plan to discharge prior to receiving results, continue PO doxycycline for 14 days. -Above plan was d/w Primary team. -Thanks for the consult, tele ID will sign off, you can call tele ID with any questions/concerns. Miky Hester MD [facility]
[2024-03-20 12:59] LABS: Ammonia* < 9.0 umol/L (13.1-30.0)
[2024-03-20] MEDS: INSULIN ASPART 100 UNIT/ML 10 UNIT SUBCUT ×2 (13:06→17:49)
[2024-03-20] MEDS: INSULIN ASPART 100 UNIT/ML SUBCUT ×3 (13:07→20:37)
[2024-03-20] MEDS: THIAMINE 250 MG in 0.9 % SODIUM CHLORIDE 100 ml 100 ML 102.5 MG IVPB ×2 (13:44→20:31)
[2024-03-20 13:49] LABS: HIV 1/2/P24 Combo Screen* Negative (Negative)
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
[2024-03-20 14:06] LABS: Vitamin B12* 242 pg/mL (243-894)
[2024-03-20 14:10] LABS: Anaplasma phagocyt PCR Not Detected; Babesia microti by PCR Not Detected; Babesia species by PCR Not Detected; Ehrlichia chaffeensis by PCR Not Detected; Ehrlichia ewingii/canis by PCR Not Detected; Ehrlichia muris-like by PCR Not Detected
--- NOTE | 2024-03-20 19:16 | PC.NURSE ---
End of Shift ([id number]): Patient Pleasant and cooperative, not oriented to time. Patient vitally stable, lungs clear, BS WNL, IV SL and intact. Patient denies pain and SBA with ambulation. Patient tolerating regular diet. Patient in chair this shift. Tele=BBB. Patient dinner blood sugar 204. Left side of face still reddened and puffy, all wound mepilex C/D/I.
[2024-03-20] MEDS: ENOXAPARIN 30 MG/0.3ML INJ SUBCUT (20:31)
[2024-03-20] MEDS: INSULIN GLARGINE,HUM.REC.ANLOG 100 UNIT/ML INSULN.PEN 50 UNIT SUBCUT (20:37)
[2024-03-21 02:16] VITALS: BP 174/78; PULSE 65; RESP 16; TEMP 36.6; O2SAT 100
[2024-03-21] MEDS: CEFAZOLIN 2 GM in 0.9 % SODIUM CHLORIDE Mini-bag 100 ML IVPB ×2 (05:23→13:07)
[2024-03-21] MEDS: LEVOTHYROXINE 100 MCG TABLET PO (06:35)
[2024-03-21] MEDS: OMEPRAZOLE 20 MG CAPSULE DR PO (06:35)
[2024-03-21 06:59] LABS: Hematocrit 33.5 % (37.0-53.0); Hemoglobin* 11.2 gm/dL (13.5-17.5); Mean Corpuscular HGB Conc 33 gm/dL (32-36); Mean Corpuscular Hemoglobin 28 pg (26-34); Mean Corpuscular Volume 84 fL (80-100); Platelet Count* 284 K/uL (140-440); Red Blood Count 3.98 m/uL (4.30-5.90); White Blood Count* 6.94 K/uL (4.50-11.00)
[2024-03-21 07:00] VITALS: PULSE 67
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
[2024-03-21 07:02] LABS: Slide Review Reflex No
[2024-03-21 07:15] LABS: Chloride* 101 mmol/L (96-114); Sodium* 132 mmol/L (135-149)
[2024-03-21 07:17] LABS: Est. Creatinine Clearance* 62.84; Estimated Glomerular Filt Rate 78 ml/min
[2024-03-21 07:18] LABS: Anion Gap 9 mEq/L (7-15); Blood Urea Nitrogen* 16 mg/dL (7-30); Carbon Dioxide* 22 mmol/L (20-32); Glucose* 81 mg/dL (60-115)
[2024-03-21 07:19] LABS: Calcium* 8.7 mg/dL (8.4-10.6)
[2024-03-21 07:47] LABS: Potassium* 2.8 mmol/L (3.6-5.1)
[2024-03-21 07:51] VITALS: BP 164/71; PULSE 68; RESP 18; TEMP 36.4; O2SAT 100
[2024-03-21] MEDS: POTASSIUM BICARB 25 MEQ EFFERVESCENT TAB PO ×4 (08:42→13:51)
[2024-03-21] MEDS: INSULIN ASPART 100 UNIT/ML 10 UNIT SUBCUT (08:43)
[2024-03-21] MEDS: INSULIN GLARGINE,HUM.REC.ANLOG 100 UNIT/ML INSULN.PEN 70 UNIT SUBCUT (08:44)
[2024-03-21] MEDS: POTASSIUM CHLORIDE 10 MEQ CAPSULE ER 20 MEQ PO (08:46)
[2024-03-21] MEDS: DULOXETINE 30 MG CAPSULE DR 60 MG PO (08:46)
[2024-03-21] MEDS: TAMSULOSIN HCL 0.4 MG CAPSULE PO (08:46)
[2024-03-21] MEDS: FUROSEMIDE 40 MG TABLET PO (08:47)
[2024-03-21] MEDS: DOXYCYCLINE HYCLATE 100 MG PO (08:47)
[2024-03-21] MEDS: FOLIC ACID 1 MG TABLET PO (08:47)
[2024-03-21] MEDS: GABAPENTIN 100 MG CAPSULE 200 MG PO (08:47)
[2024-03-21] MEDS: FINASTERIDE 5 MG TABLET PO (08:47)
[2024-03-21] MEDS: carvediloL 6.25 MG TABLET PO (08:47)
[2024-03-21] MEDS: CLOPIDOGREL 75 MG TABLET PO (08:47)
[2024-03-21] MEDS: SODIUM CHLORIDE 0.9 % (FLUSH) 10 ML SYRINGE 5 ML IVF (09:01)
[2024-03-21] MEDS: ROSUVASTATIN CALCIUM 10 MG TABLET 20 MG PO (09:01)
[2024-03-21] MEDS: THIAMINE 250 MG in 0.9 % SODIUM CHLORIDE 100 ml 100 ML 102.5 MG IVPB (10:12)
[2024-03-21] MEDS: 0.9 % SODIUM CHLORIDE 250 ml IV (10:16)
[2024-03-21 11:16] VITALS: BP 154/77; PULSE 65; RESP 16; TEMP 36.5; O2SAT 96
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
[2024-03-21 12:41] LABS: Potassium* 3.5 mmol/L (3.6-5.1)
--- NOTE | 2024-03-21 14:01 | PC.SOCIAL ---
Discharge planning: Met with pt and in room regarding d/c plan. is concerned about ability to provide 24 hour supervision and requested information on available services for this. Provided with written information on the [facility] and received her permission for vp digital marketing social media and crm to make a referral to the [facility] for them to contact the for a Penitentiary Care Assessment to see if pt is eligible for any free services through the [facility] for support and assistance at home. utility worker film processing made this referral online. Provided with with written information on [place] care and discussed this option to hire assistance. Also provided with written information on [facility] Assisted living and explained the process and timeline for admission from home into a facility. states she is working during the day and needs to keep working due to their financial situation. PT and have multiple children and grandchildren who have offered to help them at home. states she will be reaching out to them to ask for assistance as they are hoping to remain in their home for the next 5 years. was appreciative of information provided and is aware of how to reach vp digital marketing social media and crm if she has additional questions or needs more resources.
--- NOTE | 2024-03-21 16:19 | PC.NURSE ---
Pt alert and oriented to self and place; Pt had some bouts of confusion during the shift. Pt had no complaints of pain. Pt up with SBA with walker and gait belt. Pt's IV removed; catheter intact. Pt refused scheduled insulin for lunch and to order lunch. Pt and spoke with older adult social work specialist per their request. Discharge instructions reviewed with Pt and . Importance of 24 hour supervision was stressed to the Pt and . Pt's potassium level redrawn before discharge and had increased from morning potassium level. Pt discharged home with .
--- NOTE | 2024-03-21 16:23 | PC.NURSE ---
Wound care completed this morning; dressings changed. updated on this matter.
[2024-03-21 17:11] LABS: Thyroid Peroxidase (TPO) Ab <0.3 IU/mL (0.0-9.0)
[2024-03-21 18:44] LABS: Folate, Serum >22.3 ng/mL (>=5.9)
[2024-03-25 08:44] LABS: Vitamin B1, Whole Blood 110 nmol/L (70-180)
== END 2024-03-21 14:26 | disposition home or self-care (01) | DRG 603 ==
LOC: ED 07:54 → MEDSURG 09:13
PROVIDERS: Physician Assistant; Admitting Provider Family Medicine; Emergency Provider Family Medicine; PCP Family Medicine; Visit Provider Family Medicine
DX: A46 Erysipelas (principal); L03.211 Cellulitis of face; N17.9 Acute kidney failure, unspecified; A93.8 Other specified arthropod-borne viral fevers; L97.919 Non-pressure chronic ulcer of unspecified part of right lower leg with unspecified severity; L97.519 Non-pressure chronic ulcer of other part of right foot with unspecified severity; E11.40 Type 2 diabetes mellitus with diabetic neuropathy, unspecified; R50.81 Fever presenting with conditions classified elsewhere; Z79.4 Long term (current) use of insulin; Z79.84 Long term (current) use of oral hypoglycemic drugs; R32 Unspecified urinary incontinence; E11.621 Type 2 diabetes mellitus with foot ulcer; E11.65 Type 2 diabetes mellitus with hyperglycemia; G47.33 Obstructive sleep apnea (adult) (pediatric); Z99.89 Dependence on other enabling machines and devices; I48.0 Paroxysmal atrial fibrillation; Z86.74 Personal history of sudden cardiac arrest; F10.11 Alcohol abuse, in remission; E11.22 Type 2 diabetes mellitus with diabetic chronic kidney disease; I12.9 Hypertensive chronic kidney disease with stage 1 through stage 4 chronic kidney disease, or unspecified chronic kidney disease; N18.32 Chronic kidney disease, stage 3b; R41.82 Altered mental status, unspecified; I87.2 Venous insufficiency (chronic) (peripheral); N40.0 Benign prostatic hyperplasia without lower urinary tract symptoms; Z86.73 Personal history of transient ischemic attack (TIA), and cerebral infarction without residual deficits; E03.9 Hypothyroidism, unspecified; E78.5 Hyperlipidemia, unspecified; I25.10 Atherosclerotic heart disease of native coronary artery without angina pectoris; R91.1 Solitary pulmonary nodule; E87.6 Hypokalemia; Z87.891 Personal history of nicotine dependence; S00.81XA Abrasion of other part of head, initial encounter; S60.811A Abrasion of right wrist, initial encounter; S80.811A Abrasion, right lower leg, initial encounter; V28.41XA Electric (assisted) bicycle driver injured in noncollision transport accident in traffic accident, initial encounter; Y93.55 Activity, bike riding; E66.9 Obesity, unspecified; Z98.61 Coronary angioplasty status; Z68.37 Body mass index [BMI] 37.0-37.9, adult
CPT/HCPCS: 36415; 70450; 70551; 71046; 71275; 74177; 80048; 80053; 80076; 81001; 82077; 82140; 82607; 82746; 82962; 83605; 83880; 84132; 84145; 84425; 84443; 84484; 85025; 85027; 85610; 85730; 86140; 86376; 86617; 86703; 87040; 87086; 87468; 87469; 87484; 87631; 87798; 93005; 93306; 94761; 97116; 97161; 97165; 97530; 97535; 99285; A9270; J0690; J0692; J1650; J1815; J3372; J3411; J7030; J7050; Q9957; Q9967

== ENCOUNTER 2024-03-25 10:39 | Inpatient (IN) | payer MEDICARE, BC, SELFPAY ==
[2024-03-25 10:58] VITALS: BP 133/78; PULSE 99; RESP 20; TEMP 36; O2SAT 99; BMI 34.9
--- NOTE | 2024-03-25 12:03 | ED.AMS ---
HPI - Altered Mental Status General Time Seen by Provider: 12:03 Date Seen: 03/25/24 Chief Complaint: Altered Mental Status Stated Complaint: confusion, low blood sugars, multiple falls Time Seen by Provider: 03/25/24 11:58 Source: patient and RN notes reviewed Mode of arrival: ambulatory Limitations: altered mental status Related Data Home Medications ?Medication ?Instructions ?Recorded ?Confirmed carvedilol 6.25 mg tablet 6.25 mg PO DAILY 12/05/23 03/18/24 finasteride 5 mg tablet 5 mg PO DAILY 12/05/23 03/18/24 folic acid 1 mg tablet 1 mg PO DAILY 12/05/23 03/18/24 furosemide 40 mg tablet 40 mg PO DAILY 12/05/23 03/18/24 gabapentin 100 mg capsule 200 mg PO BID 12/05/23 03/18/24 nitroglycerin 0.4 mg sublingual 0.4 mg sublingual Q5M PRN 12/05/23 03/18/24 tablet omeprazole 20 mg capsule,delayed 20 mg PO QDAY 12/05/23 03/18/24 release potassium chloride 10 mEq 20 meq PO BID 12/05/23 03/18/24 tablet,extended release(part/cryst) (Klor-Con M) rosuvastatin 20 mg tablet 20 mg PO DAILY 12/05/23 03/18/24 spironolactone 25 mg tablet 25 mg PO DAILY 12/05/23 03/18/24 tamsulosin 0.4 mg capsule 0.4 mg PO DAILY 12/05/23 03/18/24 clopidogrel 75 mg tablet 75 mg PO DAILY 03/18/24 03/18/24 duloxetine 60 mg capsule,delayed 60 mg PO DAILY 03/18/24 03/18/24 release insulin aspart U-100 100 unit/mL 16 unit subcut TID 03/18/24 03/18/24 (3 mL) subcutaneous pen (Novolog FlexPen U-100 Insulin aspart) insulin glargine 100 unit/mL (3 70 unit subcut BID 03/18/24 03/18/24 mL) subcutaneous pen (Lantus Solostar U-100 Insulin) levothyroxine 100 mcg tablet 100 mcg PO DAILY 03/18/24 03/18/24 metformin 500 mg tablet,extended 1,000 mg PO BID 03/18/24 03/18/24 release 24 hr Previous Rx's ?Medication ?Instructions ?Recorded cephalexin 500 mg capsule 500 mg PO TID 4 days #12 caps 03/21/24 doxycycline hyclate 100 mg tablet 100 mg PO BID 10 days #20 tabs 03/21/24 thiamine HCl (vitamin B1) 100 mg 100 mg PO DAILY #7 tabs 03/21/24 tablet Allergies Allergy/AdvReac Type Severity Reaction Status Date / Time Penicillins Allergy Intermediate Hives Verified 03/18/24 08:46 esomeprazole [From Nexium] AdvReac Unknown Nausea Verified 03/18/24 08:46 Jdgvsws-DJX-SuB Reductase AdvReac Unknown Muscle Pain Verified 03/18/24 08:46 Inhibitor PFSH [facility] Medical History (Updated 03/24/24 @ 00:00 by Background Daemon) Paroxysmal atrial fibrillation ?I48.0 - Paroxysmal atrial fibrillation (ICD-10) Bilateral foot pain ?M79.671 - Pain in right foot (ICD-10) ?M79.672 - Pain in left foot (ICD-10) Hyperglycemia ?R73.9 - Hyperglycemia, unspecified (ICD-10) Lyme disease with largest skin lesion of 2 inches or more ?A69.20 - Lyme disease, unspecified (ICD-10) Obesity (BMI 30-39.9) ?E66.9 - Obesity, unspecified (ICD-10) Venous insufficiency (chronic) (peripheral) ?I87.2 - Venous insufficiency (chronic) (peripheral) (ICD-10) History of cardiac arrest (06/2023) ?Z86.74 - Personal history of sudden cardiac arrest (ICD-10) ASO (arteriosclerosis obliterans) ?I70.90 - Unspecified atherosclerosis (ICD-10) History of alcohol abuse ?F10.11 - Alcohol abuse, in remission (ICD-10) Osteoarthritis of multiple joints ?M15.9 - Polyosteoarthritis, unspecified (ICD-10) Chronic kidney disease, stage 3b ?N18.32 - Chronic kidney disease, stage 3b (ICD-10) BPH (benign prostatic hyperplasia) ?N40.0 - Benign prostatic hyperplasia without lower urinary tract symptoms (ICD-10) History of CVA (cerebrovascular accident) (06/11/23) ?Z86.73 - Personal history of transient ischemic attack (TIA), and cerebral infarction without residual deficits (ICD-10) Hypothyroidism ?E03.9 - Hypothyroidism, unspecified (ICD-10) Hypertensive heart disease without HF (heart failure) ?I11.9 - Hypertensive heart disease without heart failure (ICD-10) Hyperlipidemia ?E78.5 - Hyperlipidemia, unspecified (ICD-10) Erectile dysfunction ?N52.9 - Male erectile dysfunction, unspecified (ICD-10) History of ST elevation myocardial infarction (STEMI) (08/07/18) ?I25.2 - Old myocardial infarction (ICD-10) Hypertension ?I10 - Essential (primary) hypertension (ICD-10) CAD (coronary artery disease) ?I25.10 - Atherosclerotic heart disease of tribal coronary artery without angina pectoris (ICD-10) TING (obstructive sleep apnea) ?G47.33 - Obstructive sleep apnea (adult) (pediatric) (ICD-10) Type 2 diabetes mellitus with diabetic neuropathy (~1993) ?E11.40 - Type 2 diabetes mellitus with diabetic neuropathy, unspecified (ICD-10) Diabetic foot ulcer ?E11.621 - Type 2 diabetes mellitus with foot ulcer (ICD-10) ?L97.509 - Non-pressure chronic ulcer of other part of unspecified foot with unspecified severity (ICD-10) Surgical History History of total bilateral knee replacement ?Z96.653 - Presence of artificial knee joint, bilateral (ICD-10) History of colonoscopy ?Z98.890 - Other specified postprocedural states (ICD-10) History of percutaneous coronary intervention ?Z98.61 - Coronary angioplasty status (ICD-10) Family History Father Asthma Mother Lung cancer Aunt Breast cancer Maternal Grandmother Diabetes Paternal Grandmother Diabetes Social History (Updated 03/18/24 @ 12:30 by Tiara Ocampo MD) Narrative: , 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, 3 adult children, lives in [place] No regular exercise Nonsmoker, quit in 2004, before then 40 pack years Does not drink alcohol, Quit 06/2023 following many years of alcohol use disorder What is your current living situation?: I presently have a place to live Problems where you live: no known problems Problems where you live details: none In the past 12 months, utilities in danger of being shut off: no In past 12 months, lack of transportation kept you from medical appts, meetings, work, or getting things needed for daily living: no In the past 12 mos, have been you worried that your food would run out before you had money to buy more?: never true In the past 12 mos, the food you bought just didn't last and you didn't have money to buy more?: never true Highest level of school completed/degree received: Associate degree: occupational, technical, vocational program Smoking Status: Former smoker How often do you have a drink containing alcohol: never AUDIT-C Alcohol total score: 0 Non-prescribed substance use: denies use Caffeine: Yes (pop) How often does anyone, including family, friends and others, physically hurt you: never How often does anyone, including family, friends and others, insult or talk down to you: never How often does anyone, including family, friends and others, threaten you with harm: never How often does anyone, including family, friends and others, scream or curse at you: never Little interest or pleasure in doing things: not at all Feeling down, depressed, or hopeless: not at all service: No Exam Const: Vital Signs, click to edit/add: Vital Signs - 24 hr 03/25/24 10:58 Temperature 96.8 F L Pulse Rate [Pulse Oximeter] 99 Respiratory Rate 20 Blood Pressure [Ri ght Upper Arm] 133/78 Pulse Oximetry 99 Oxygen Delivery Me thod Room Air Course Vital Signs Vital signs: Initial Vital Signs Temperature 96.8 F L 03/25/24 10:58 Temperature Source Temporal Artery Scan 03/25/24 10:58 Pulse Rate 99 03/25/24 10:58 Respiratory Rate 20 03/25/24 10:58 Blood Pressure 133/78 03/25/24 10:58 Blood Pressure Mean 96 03/25/24 10:58 Blood Pressure Position Sitting 03/25/24 10:58 Pulse Oximetry 99 03/25/24 10:58 Oxygen Delivery Method Room Air 03/25/24 10:58 Vital Signs Temperature 96.8 F L 03/25/24 10:58 Pulse Rate 99 03/25/24 10:58 Respiratory Rate 20 03/25/24 10:58 Blood Pressure 133/78 03/25/24 10:58 Pulse Oximetry 99 03/25/24 10:58 Oxygen Delivery Method Room Air 03/25/24 10:58 Temperature 96.8 F L 03/25/24 10:58 Pulse Rate 99 03/25/24 10:58 Respiratory Rate 20 03/25/24 10:58 Blood Pressure 133/78 03/25/24 10:58 Pulse Oximetry 99 03/25/24 10:58 Oxygen Delivery Method Room Air 03/25/24 10:58 Discharge Plan Discharge Prescriptions: No Action gabapentin 100 mg capsule 200 mg PO BID nitroglycerin 0.4 mg tablet, sublingual 0.4 mg sublingual Q5M PRN Rx Instructions: do not exceed 3 doses per episode furosemide 40 mg tablet 40 mg PO DAILY tamsulosin 0.4 mg capsule 0.4 mg PO DAILY spironolactone 25 mg tablet 25 mg PO DAILY finasteride 5 mg tablet 5 mg PO DAILY carvedilol 6.25 mg tablet 6.25 mg PO DAILY Rx Instructions: must administer with a meal/food omeprazole 20 mg capsule,delayed release(DR/EC) 20 mg PO QDAY rosuvastatin 20 mg tablet 20 mg PO DAILY potassium chloride [Klor-Con M10] 10 mEq tablet,ER particles/crystals 20 meq PO BID folic acid 1 mg tablet 1 mg PO DAILY levothyroxine 100 mcg tablet 100 mcg PO DAILY duloxetine 60 mg capsule,delayed release(DR/EC) 60 mg PO DAILY clopidogrel 75 mg tablet 75 mg PO DAILY metformin 500 mg tablet extended release 24 hr 1,000 mg PO BID insulin aspart U-100 [Novolog FlexPen U-100 Insulin] 100 unit/mL (3 mL) insulin pen 16 unit subcut TID Rx Instructions: 10 units with breakfast , lunch and dinner insulin glargine [Lantus Solostar U-100 Insulin] 100 unit/mL (3 mL) insulin pen 70 unit subcut BID Rx Instructions: 70 in morning, 50 in pm doxycycline hyclate 100 mg Tablet 100 mg PO BID 10 Days Qty: 20 0RF thiamine HCl (vitamin B1) 100 mg tablet 100 mg PO DAILY Qty: 7 0RF cephalexin 500 mg capsule 500 mg PO TID 4 Days Qty: 12 0RF Follow Up/Referrals: Desiree Black MD [Primary Care Provider] -
--- NOTE | 2024-03-25 12:21 | CRLHL7_ITS ---
For Patients: As a result of the 21st Century Cures Act, medical imaging exams and procedure reports are released immediately into your electronic medical record. You may view this report before your referring provider. If you have questions, please contact your health care provider. INDICATION: FALLS. WEAKNESS TECHNIQUE: CT of the head was performed without IV contrast. COMPARISON: 03/20/2024, 03/18/2024. FINDINGS: Parenchyma: No acute hemorrhage, infarction, or mass. Moderate scattered periventricular white matter hypoattenuation is nonspecific and is favored to represent chronic small vessel ischemic disease. Ventricles and extra-axial spaces: Appropriate for age. Visualized paranasal sinuses: Mild mucosal thickening of the bilateral maxillary sinuses. Mastoid air cells: Clear. Bones: No focal abnormality. Additional comment: None. IMPRESSION: No acute intracranial abnormality. Please note that all CT scans at this facility use dose modulation, iterative reconstruction, and/or weight-based dosing when appropriate to reduce radiation dose to as low as reasonably achievable. Dictated by Sundar Upton MD @ 03/25/2024 1:28:43 PM (Electronically Signed)
--- OUTSIDE RECORDS SUMMARY | 2024-03-25 12:31 | XMS_ITS | Referral Summary ---
Author Organization [facility] Address [address] [place] [address] Care Team Providers Care Tire Specialist Name Role Phone Shanae Ugarte APRN, C.N.P. Primary Care Provide r Source Comments Patient records contain information from all sites at [facility]. For routine questions regarding patient records, call [phone] during business hours, M-F 8:00 AM - 5:00 PM Central Time. Record requests for emergency care only can be directed to [phone] at any time.[facility] Encounters Date Type Department Care Team Description 03/08/2024 6:24 PM CDT - 03/08/2024 8:42 PM CDT Emergency [facility] [address] [place] [phone] Jaden Serna, P.A.-C. Laceration Forehead Initial (Primary Dx); Laceration Ankle Without Foreign Body Initial Right Discharge Disposition: Home or Self Care 02/26/2024 Refill Department of [facility] Medicine, [facility], in [address] [phone] Shanae Ugarte APRN, C.N.P. Med Refill 01/16/2024 Orders Only [facility] Sh[facility] Ugarte APRN, C.N.P. 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) 01/02/2024 Clinical Communication Department of [facility], [facility], in [address] [phone] Monsour, Shanae M, HELP DESK TEAM LEADER, C.N.P. from Last 3 Months Allergies Active Allergy Reactions Criticality Noted Date Comments Esomeprazole Magnesium Nausea Only 11/12/2012 INCREASED ACID Penicillins Hives (Reselect Reaction) 04/15/2014 Fkkoawl-Seg-Ksm Reductase Inhibitors Myalgia 04/15/2014 Medications Medication Sig [...] 810 capsule 3 10/11/2023 5 Active DME CPAPIndications:Mallet Cutter ea Sleep Obstructive DME Order 1 each [...] - MODE RNA (12 YEARS AND OLDER) [id number] 05/12/2023 SARS-COV-2 (COVID-19) - MODERNA(Discontinued) SARS-COV-2 (COVID-19) [...] 177 cm (5' 9.69) 05/31/2023 2:47 PM GENERAL MAINTENANCE MECHANIC Body Mass Index 37.89 05/31/2023 2:47 PM GENERAL MAINTENANCE MECHANIC Plan of Treatment Not on file Medical Devices Implanted Type Area Spiral Binder Device Identifier Shelf Expiration Date Model / [...] ALBUMIN, RANDOM, U Routine 05/31/2023 2:26 PM GENERAL MAINTENANCE MECHANIC Diabetes Mellitus Type 2 With Diabetic Neuropathy Hyperglycemic (HCC) BASIC METABOLIC PANEL, S/P Routine 05/31/2023 2:22 PM GENERAL MAINTENANCE MECHANIC Monitoring For Therapeutic Drug Therapy THYROID-STIMULATI [...] consolidative process, pleural effusion or appreciablepneumothorax. Jaden Sharma-Jsoh IMG DIAGNOSTIC IMAGING PROCEDURES * CT Cervical [...] Cervical spine straightening, trace likely chronic/degenerative C4- G7dswxlzygrwznsev. Vertebral body heights, disc spaces, dens and facetsintact. Chronic traumatic deformity C6 spinous process tip. Advanced C2-C3disc degeneration and inferior C2 endplate sclerotic permeation. Other moderate multilevel multifactorialspondylotic change. Suspect moderate/marked canal stenosis at C3-O1ppbksncg to spondylosis. Negative for prevertebral edema. Clear [...] - 5.6 % 10/11/2023 7:26 PM CDT [facility] Comment: Hemoglobin A1c values greater than or equal to 6.5 percent are diagnostic for diabetes mellitus. ??Diagnosis should be confirmed by repeat testing. ??In diabetic patients, HbA1c goals should be discussed with healthcare provider. Blood (Blood, Venous) 10/11/2023 7:12 PM CDT 10/11/2023 7:13 PM CDT Soham James M.D., Ph.D. LAB BLOOD ADD-O N [facility] [address] [place] [address], [facility] in [address] [address] * (ABNORMAL) Albumin, Random, Urine (05/31/2023 2:26 PM GENERAL MAINTENANCE MECHANIC) Microalbumin 53.8 mg/L 05/31/2023 2:48 PM GENERAL MAINTENANCE MECHANIC CNFL Creatinine 115 mg/dL 05/31/2023 2:48 PM GENERAL MAINTENANCE MECHANIC CNFL Albumin/Creatinin e Ratio 47(H) <17 mg/g 05/31/2023 2:48 PM GENERAL MAINTENANCE MECHANIC CNFL Urine (Urine, Midstream) 05/31/2023 2:26 PM GENERAL MAINTENANCE MECHANIC 05/31/2023 2:26 PM GENERAL MAINTENANCE MECHANIC Soham James M.D., Ph.D. LAB URINE ORDER SREEKANTH Performing Organization Address [facility] [place] [address], [place] [address] * S-TSH (Thyroid-Stimulating Hormone - Sensitive) (10/25/2021 10:43 AM CDT) [facility] TSH, Sensitive 1.8 0.3 - 4.2 mIU/L 10/25/2021 11:15 AM CDT CNFL Blood (Blood, Venous) 10/25/2021 10:43 AM CDT 10/25/2021 10:47 AM CDT Soham James M.D., Ph.D. LAB BLOOD ADD-O N Performing Organization Address [facility]/[place] [address], [place] [address] * US Aorta AAA Screening (05/05/2020 10:41 [...] S Nonreactive Nonreactive 10/09/2017 10:35 AM CDT [facility] Blood 10/06/2017 2:29 PM CDT 10/06/2017 9:44 PM CDT Narrative [facility] - 10/09/2017 10:35 AM CDT Specimen Information: Specimen ID: [id number] Specimen Type: Blood Specimen Collection Start Date: 10/06/2017 ??2:29 PM Specimen Received Date: 10/06/2017 ??9:44 PM Specimen ID: [id number] Specimen Type: Blood Specimen Collection Start Date: 10/06/2017 ??2:29 PM Specimen Received Date: 10/06/2017 ??9:44 PM Soham James M.D., Ph.D. LAB MICROBIOLOG Y - BLOOD ORDERABLES [facility] [address] [place] [address], [facility] from Last 3 Months or Most Recently Relevant to Health Maintenance Care Teams Tire Specialist Relationship Specialty Start Date End Date Shanae Ugarte APRN, C.N.P. [address] [place] [phone] PCP - General 11/24/23
--- OUTSIDE RECORDS SUMMARY | 2024-03-25 12:31 | XMS_ITS | Clinical Summary ---
Author Organization [facility] Address [address] [place] [address] Care Team Providers Care Tank Processor Name Role Phone Shanae Ugarte APRN, C.N.P. Primary Care Provide r Source Comments Patient records contain information from all sites at [facility]. For routine questions regarding patient records, call [phone] during business hours, M-F 8:00 AM - 5:00 PM Central Time. 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 Laceration Forehead Initial (Primary Dx); Laceration Ankle Without Foreign Body Initial Right Discharge Disposition: Home or Self Care 02/26/2024 Refill Department of [facility], [facility], in [address] [phone] Shanae Ugarte APRN, C.N.P. Med Refill 01/16/2024 Orders Only [facility] Shanae Ugarte APRN, C.N.P. 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) 01/02/2024 Clinical Communication Department of [facility], [facility], in [address] [phone] Shanae Ugarte APRN, C.N.P. from Last 3 [...] 177 cm (5' 9.69) 05/31/2023 2:47 PM ASSEMBLER WET WASH Body Mass Index 37.89 05/31/2023 2:47 PM ASSEMBLER WET WASH Plan of Treatment Health Maintenance Due Date [...] FIT Discontinued Medical Devices Implanted Type Area Auger Mill Operator Device Identifier Shelf Expiration Date Model [...] ALBUMIN, RANDOM, U Routine 05/31/2023 2:26 PM ASSEMBLER WET WASH Diabetes Mellitus Type 2 With Diabetic Neuropathy Hyperglycemic (HCC) BASIC METABOLIC PANEL, S/P Routine 05/31/2023 2:22 PM ASSEMBLER WET WASH Monitoring For Therapeutic Drug Therapy THYROID-STIMULATI NG [...] Cervical spine straightening, trace likely chronic/degenerative C4- B5ehclgozygsshnmc. Vertebral body heights, disc spaces, dens and facetsintact. Chronic traumatic deformity C6 spinous process tip. Advanced C2-C3disc degeneration and inferior C2 endplate sclerotic permeation. Other moderate multilevel multifactorialspondylotic change. Suspect moderate/marked canal stenosis at C3-R0kptekidf to spondylosis. Negative for prevertebral edema. Clear [...] James M.D., Ph.D. LAB BLOOD ADD-O N [address] [address], [address] [address] * (ABNORMAL) Albumin, Random, Urine (05/31/2023 2:26 PM ASSEMBLER WET WASH) Microalbumin 53.8 mg/L 05/31/2023 2:48 PM ASSEMBLER WET WASH CNFL Creatinine 115 mg/dL 05/31/2023 2:48 PM ASSEMBLER WET WASH CNFL Albumin/Creatinin e Ratio 47(H) <17 mg/g 05/31/2023 2:48 PM ASSEMBLER WET WASH CNFL Urine (Urine, Midstream) 05/31/2023 2:26 PM ASSEMBLER WET WASH 05/31/2023 2:26 PM ASSEMBLER WET WASH Soham James M.D., Ph.D. LAB URINE ORDER SREEKANTH Performing Organization Address [facility]/ZIP Co de Phone Number [address] [address], [address] [address] * S-TSH (Thyroid-Stimulating Hormone - Sensitive) (10/25/2021 10:43 AM CDT) TSH, Sensitive 1.8 0.3 - 4.2 mIU/L 10/25/2021 11:15 AM CDT [facility] Blood (Blood, Venous) 10/25/2021 10:43 AM CDT 10/25/2021 10:47 AM CDT Soham James M.D., Ph.D. LAB BLOOD ADD-O N Performing Organization Address City/[facility]/ZIP Co de Phone Number [address] [address], [address] [address] * US Aorta AAA Screening (05/05/2020 10:41 [...] S Nonreactive Nonreactive 10/09/2017 10:35 AM CDT [facility] Blood 10/06/2017 2:29 PM CDT 10/06/2017 9:44 PM CDT Narrative [facility] - 10/09/2017 10:35 AM CDT Specimen Information: Specimen ID: [id number] Specimen Type: Blood Specimen Collection Start Date: 10/06/2017 ??2:29 PM Specimen Received Date: 10/06/2017 ??9:44 PM Specimen ID: [id number] Specimen Type: Blood Specimen Collection Start Date: 10/06/2017 ??2:29 PM Specimen Received Date: 10/06/2017 ??9:44 PM Soham James M.D., Ph.D. LAB MICROBIOLOG Y - BLOOD ORDERABLES [facility] [place] [address], [facility] from Last 3 Months or Most Recently Relevant to Health Maintenance Care Teams Tank Processor Relationship Specialty Start Date End Date Shanae Ugarte APRN, C.N.P. [address] [place] [phone] PCP - General 11/24/23
--- OUTSIDE RECORDS SUMMARY | 2024-03-25 12:31 | XMS_ITS | Encounter Summary ---
Author Organization [facility] Address [address] [place] [address] Care Team Providers Care Scourer Name Role Phone Shanae Ugarte APRN, C.N.P. Primary Care Provide r Reason for Visit * Reason Comments Med Refill Encounter Details Date Type Department Care Team (Late st Contact Info) Description 02/26/2024 Refill Department of Family Medicine, [facility], in [address] [phone] Shanae Ugarte APRN, C.N.P. [address] [place] [phone] Med Refill Social History Tobacco Use Types [...] documented as of this encounter Care Teams Scourer Relationship Specialty Start Date End Date Shanae Ugarte APRN, C.N.P. [address] [place] [phone] PCP - General 11/24/23 documented as of this encounter
--- OUTSIDE RECORDS SUMMARY | 2024-03-25 12:31 | XMS_ITS | Clinical Summary ---
Author Organization [facility] Address [place], [place] [address] Care Team Providers Care Reverberatory Skimmer Name Role Phone Hao Drew MD Unavailable [phone] Desiree Black MD Primary Care Provider + Allergies Active Allergy Reactions Criticality Noted Date Comments Esomeprazole Magnesium Nausea Only 11/12/2012 INCREASED ACID Penicillins Hives 04/15/2014 Fkmyslg-Oho-Moz Reductase Inhibitors Nausea Only,Myalgia 04/15/2014 Medications Medication [...] 05/05/2015 Hyperlipidemia 05/05/2015 CAD (coronary artery disease), ione coronary a rtery 10/30/2014 Systolic murmur 09/29/2014 [...] Encounters Date Type Department Care Team Description 03/18/2024 3:00 PM CDT Ancillary Procedure [facility] [address] [place] [address] 02/12/[address] [facility] [address] [place] [address] Hao Drew MD Results (labs) 02/05/2024 4:40 PM CDT Orders Only [facility] [address] [place] [address] Lab, Appv Lab 02/05/2024 4:00 PM CDT Office Visit [facility] [address] [place] [address] Hao Drew MD Concerns (Andrew denies chest pain, shortness of breath /Patient states he has been having some dizziness ) 02/05/2024 Travel 12/27/2023 Patient Outreach [facility] [address] [place] [address] [facility] Care Coordination [...] ??C (98.1 ??F) 08/17/2023 1 0:43 AM CRYSTAL SYRUP MAKER Respiratory Rate 16 02/05/2024 4:04 PM CDT [...] 9, 08/18/2008 Medical Devices Implanted Type Area Strap Cutter Device Identifier Shelf Expiration Date Model / Serial / Lot Cmnt Bone Simplex Hv Gentamicin - [id number] Implanted:Qty: 2 on 04/28/2014 by Amrik Falcon MD at [facility] Left: Knee [employer] 11/06/2014 6195-1-001 # / / [id number] Patella [id number] Triathlon Asymmetric X3 - [id number] Implanted:Qty: 1 on 04/28/2014 by Amrik Falcon MD at [facility] Left: Knee [employer] 02/06/2019 5551-G-350 # / / [id number] Fem Lt Sz7 Triathlon Post Stbznon Pors - [id number] Implanted:Qty: 1 on 04/28/2014 by Amrik Falcon MD at [facility] Left: Knee [employer] 02/06/2018 5515-F-701 # / / [id number] Baseplate Tib Sz6 Triathlon Pe - [id number] Implanted:Qty: 1 on 04/28/2014 by Amrik Falcon MD at [facility] Left: Knee [employer] 12/07/2018 5521-B-600 # / / KRDE Insert Knee Sz6 11mm Triathlonpost Stbz X3 - [id number] Implanted:Qty: 1 on 04/28/2014 by Amrik Falcon MD at [facility] Left: Knee [employer] 02/06/2019 5532-G-611 # / / [id number] Triathlon X3 Asymmetric Patella [id number] - [id number] Implanted:Qty: 1 on 08/14/2019 by Amrik Falcon MD at [facility] Right: Knee [employer] 02/19/2024 5551-G-381 -E / / [id number] Triathlon X3 Tibial Bearing Insert Cs Valery 5 Typ Cs Thkns 11mm - [id number] Implanted:Qty: 1 on 08/14/2019 by Amrik Falcon MD at [facility] Right: Knee [employer] 03/24/2024 5531-G-511 -E / / [id number] Cmnt Bone Simplex Hv - [id number] Implanted:Qty: 1 on 08/14/2019 by Amrik Falcon MD at [facility] Right: Knee [employer] 12/07/2020 6194-1-001 # / / [id number] Cmnt Bone Simplex Hv Gentamicin - [id number] Implanted:Qty: 1 on 08/14/2019 by Amrik Falcon MD at [facility] Right: Knee [employer] 06/08/2020 6195-1-001 # / / [id number] Fem Rt Sz6 Triathlon Cruc Ret Co Cr - [id number] Implanted:Qty: 1 on 08/14/2019 by Amrik Falcon MD at [facility] Right: Knee [employer] 01/11/2024 5510-F-602 # / / [id number] Baseplate Tib Sz5 Triathlon Pe - [id number] Implanted:Qty: 1 on 08/14/2019 by Amrik Falcon MD at [facility] Right: Knee [employer] 04/17/2024 5521-B-500 # / / [id number] Procedures Procedure Name Priority Date/Time Associated Diagnosis Comments ECHO TTE COMPLETE W CONTRAST Routine 03/18/2024 12:15 PM CDT Heart murmur Fever BASIC METABOLIC PANEL Routine 02/05/2024 4:41 PM CDT Stage 3 chronic kidney disease, unspecified whether stage 3a or 3b CKD (HC) from Last 3 Months Results * ECHO TTE COMPLETE W CONTRAST (03/18/2024 12:15 PM CDT) AORTIC VALVE MEAN PG 21 mmHg LVEDD 4.4 cm EJECTION FRACTION 60 - 65% Anatomical Region Laterality Modality Ultrasound 03/18/2024 11:3 5 AM CDT Narrative 03/18/2024 12:53 PM CDT ECHOCARDIOGRAM SHIN BEST ?Accession#: ?? [id number] : ?1945 78 years Study Date: ?? 03/18/2024 11:35:50 AM Gender: M ? BP: ? 161/74 mmHg Height: 175.00 cm ? BSA: ?2.25 m? ? ? Weight: 111.00 kg ? Tech: ? MCK ?Referring MD: DRE HUGHES Site: ? [facility] Reading Location: [facility] Patient Location: Inpatient. Procedure: 2D w/ Contrast, Color Doppler and Spectral Doppler. Indication for study: Murmur, fever Cardiac Rhythm: Regular and with premature ventricular contractions.Study quality: Technically limited. Final Impressions: 1. Technically limited exam. 2. LVEF estimate 60-65%. Normal LV size and wall thickness. 3. Normal RV size and global function. 4. Moderate [peak velocity 3.2 m/s, mean gradient 21 mmHg, valve area 1.27 cm2]. 5. Normal PASP and RAP estimates. 6. No LV thrombus [contrast study]. Chamber Sizes and Function Left atrial size is normal. Right ventricular cavity size is normal, global systolic RV function is normal. RV wall thickness is normal. The right atrium is normal. Right atrial volume index is 13 ml/m? ? ?. Right atrial area is 14 cm? ? ?. The pulmonary artery is not well visualized. The sinus of Valsalva is normal for age/sex/bsa. The ascending aorta is normal for age/sex/bsa. Valves, RV Pressures and Diastolic Function The aortic valve is sclerotic, calcified and trileaflet, moderate stenosis and no regurgitation. The mitral valve is not well visualized, no mitral regurgitation. Mitral annular calcification is present. Indeterminate pattern of LV diastolic filling. The tricuspid valve is not well visualized. Tricuspid regurgitation is trace regurgitation. The pulmonic valve is not well visualized. Trace pulmonary regurgitation. Masses, Effusion, Shunts There is no pericardial effusion. The inferior vena cava is not well visualized, respiratory size variation not well visualized. No left to right shunting was detected by limited color flow Doppler interrogation of the interatrial septum. MEASUREMENTS AND CALCULATIONS 2-D Measurements and LV Function: LVID (d) 4.4 cm LV FS% (2D) ?? 57 % LVID (s) 1.9 cm LVOT diameter 2.0 cm IVS (d) ??1.3 cm HR ?68 bpm LVPW (d) 1.5 cm LA Vol index ??19 ml/m2 Ao Sinus 3.8 cm RA Vol index ??13 ml/m2 Asc Ao ?? 3.6 cm RA area ? 14 cm? ? ? LA ? 4.6 cm RV Max 4C (d) 4.1 cm Diastology: Mitral E Peak 0.9 m/s A Peak 1.2 m/s E/A ?0.8 DT ? 310 msec Aortic Valve: Vmax ? 3.2 m/s ??ÁLVARO (V) ?? 1.16 cm? ? ? VTI ?0.67 m ?? ÁLVARO (I) ?? 1.27 cm? ? ? LVOT V max 1.2 m/s ??Max PG ?42 mmHg LVOT VTI ?? 0.27 m ?? Mean PG ?? 21 mmHg SV ? 86 ml ?Dim Index 0.40 SV index ?? 38 ml/m? ? ? CO ?5.8 l/min ?CI ?2.6 l/min/m? ? ? Mitral Valve: MVA ?2.4 cm? ? ? MV P 1/2 90 msec Tricuspid Valve and estimated PA pressures: TAPSE 2.5 cm Contrast documentation: 2 ml diluted Definity, lot #[id number], [facility]# [id number] was administered peripherally to enhance visualization of all left ventricular segments. . This study was interpreted by an [facility] accredited facility. CC: HIM (med records) [facility], Med/Surg - IP [facility]. ??Final ?? Procedure Note Davi Ruiz MD - 03/18/2024 ECHOCARDIOGRAM SHIN BEST : 1945 78 years Study Date: 03/18/2024 11:35:50 AM Gender: M BP: 161/74 mmHg Height: 175.00 cm BSA: 2.25 m? ? ? Weight: 111.00 kg Tech: ALMA Referring MD: DRE HUGHES Site: [facility] Reading Location: [facility] Patient Location: Inpatient. Procedure: 2D w/ Contrast, Color Doppler and Spectral Doppler. Indication for study: Murmur, fever Cardiac Rhythm: Regular and with premature ventricular contractions.Studyquality: Technically limited. Final Impressions: 1. Technically limited exam. 2. LVEF estimate 60-65%. Normal LV size and wall thickness. 3. Normal RV size and global function. 4. Moderate [peak velocity 3.2 m/s, mean gradient 21 mmHg, valve area1.27 cm2]. 5. Normal PASP and RAP estimates. 6. No LV thrombus [contrast study]. Chamber Sizes and Function Left atrial size is normal. Right ventricular cavity size is normal,global systolic RV function is normal. RV wall thickness is normal. Theright atrium is normal. Right atrial volume index is 13 ml/m? ? ?. Rightatrial area is 14 cm? ? ?. The pulmonary artery is not well visualized. Thesinus of Valsalva is normal for age/sex/bsa. The ascending aorta is normalfor age/sex/bsa. Valves, RV Pressures and Diastolic Function The aortic valve is sclerotic, calcified and trileaflet, moderate stenosisand no regurgitation. The mitral valve is not well visualized, no mitralregurgitation. Mitral annular calcification is present. Indeterminatepattern of LV diastolic filling. The tricuspid valve is not wellvisualized. Tricuspid regurgitation is trace regurgitation. The pulmonicvalve is not well visualized. Trace pulmonary regurgitation. Masses, Effusion, Shunts There is no pericardial effusion. The inferior vena cava is not wellvisualized, respiratory size variation not well visualized. No left toright shunting was detected by limited color flow Doppler interrogation ofthe interatrial septum. MEASUREMENTS AND CALCULATIONS 2-D Measurements and LV Function: LVID (d) 4.4 cm LV FS% (2D) 57 % LVID (s) 1.9 cm LVOT diameter 2.0 cm IVS (d) 1.3 cm HR 68 bpm LVPW (d) 1.5 cm LA Vol index 19 ml/m2 Ao Sinus 3.8 cm RA Vol index 13 ml/m2 Asc Ao 3.6 cm RA area 14 cm? ? ? LA 4.6 cm RV Max 4C (d) 4.1 cm Diastology: Mitral E Peak 0.9 m/s A Peak 1.2 m/s E/A 0.8 DT 310 msec Aortic Valve: Vmax 3.2 m/s ÁLVARO (V) 1.16 cm? ? ? VTI 0.67 m ÁLVARO (I) 1.27 cm? ? ? LVOT V max 1.2 m/s Max PG 42 mmHg LVOT VTI 0.27 m Mean PG 21 mmHg SV 86 ml Dim Index 0.40 SV index 38 ml/m? ? ? CO 5.8 l/min CI 2.6 l/min/m? ? ? Mitral Valve: MVA 2.4 cm? ? ? MV P 1/2 90 msec Tricuspid Valve and estimated PA pressures: TAPSE 2.5 cm Contrast documentation: 2 ml diluted Definity, lot #[id number], [facility]#[id number] was administered peripherally to enhance visualization of allleft ventricular segments. . This study was interpreted by an [facility] accredited facility. CC: HIM (med records) [facility], Med/Surg - IP [facility]. Final Tiara Ocampo MD ECHO ORD * (ABNORMAL) BASIC METABOLIC PANEL (02/05/2024 4:41 PM CDT) SODIUM 139 136 - 145 mmol/L 02/06/2024 9:25 AM CDT [facility] POTASSIUM 4.3 3.5 - 5.1 mmol/L 02/06/2024 9:25 AM CDT [facility] CHLORIDE 99 98 - 107 mmol/L 02/06/2024 9:25 AM CDT [facility] CO2,TOTAL 27 22 - 29 mmol/L 02/06/2024 9:25 AM CDT [facility] ANION GAP 13 5 - 18 02/06/2024 9:25 AM CDT [facility] GLUCOSE 156(H) 70 - 99 mg/dL 02/06/2024 9:25 AM CDT [facility] CALCIUM 10.1 8.8 - 10.2 mg/dL 02/06/2024 9:25 AM CDT [facility] BUN 36(H) 8 - 23 mg/dL 02/06/2024 9:25 AM T [facility] CREATININE 2.09(H) 0.70 - 1.20 mg/dL 02/06/2024 9:25 AM CDT [facility] BUN/CREAT RATIO 17 10 - 20 9:25 AM T [facility] eGFR 32(L) >90 mL/min/1.7 3m2 02/06/2024 9:25 AM T [facility] Comment:As of 2021, [...] 4:41 PM CDT Hao Drew MD [facility] [address] [place] [address], [place] from Last 3 Months Advance Directives [...] 11:50 PM 08/09/2018 3:08 PM Care Teams Reverberatory Skimmer Relationship Specialty Start Date End Date Desiree Black MD [address] [place] [id number] PCP - General Family Practice 02/05/24 Hao Drew MD [address] [place] [address] Cardiology Cardiovascular Disease 12/30/19
--- OUTSIDE RECORDS SUMMARY | 2024-03-25 12:31 | XMS_ITS | Referral Summary ---
Author Organization [facility] Address [address] [place] [address] Care Team Providers Care Soft Sugar Operator Head Name Role Phone Soham James MD Primary Care Provider [phone] Allergies Active Allergy Reactions Criticality Noted Date [...] Comments Blood Pressure 118/67 08/07/2018 9:20 AM VENEER DEPARTMENT MANAGER Pulse 64 08/07/2018 9:20 AM VENEER DEPARTMENT MANAGER Temperature 36.6 ??C (97.9 ??F) 08/21/2012 8:20 AM CS T Respiratory Rate 20 08/07/2018 9:30 AM VENEER DEPARTMENT MANAGER Oxygen Saturation 91% 08/07/2018 9:27 AM VENEER DEPARTMENT MANAGER Inhaled Oxygen Concentration - - Weight 124.7 kg (275 lb) 08/07/2018 7:52 AM VENEER DEPARTMENT MANAGER Height 177.8 cm (5' 10) 08/07/2018 7:52 AM VENEER DEPARTMENT MANAGER Body Mass Index 39.46 08/07/2018 7:52 AM VENEER DEPARTMENT MANAGER Plan of Treatment Not on file Procedures Procedure Name Priority Date/Time Associated Diagnosis Comments COLONOSCOPY Routine 08/07/2018 8:13 AM VENEER DEPARTMENT MANAGER GLUCOSE BY METER Routine 08/21/2012 7:19 AM VENEER DEPARTMENT MANAGER from Last 3 Months or Most Recently Relevant to Health Maintenance Results * COLONOSCOPY (08/07/2018 8:13 AM VENEER DEPARTMENT MANAGER) [facility] COLONOSCOPY [facility] Department ___ Patient Name: Shin Best ? Procedure Date: 08/07/2018 8:13 AM ? Date of : 1945 ? Admit Type: Outpatient Age: 73 ? Room: 3 Note Status: Finalized ?Attending MD: Abraham Milner , Total Sedation Time: 41 mins of continuous bedside 1:1 Instrument Name: 325 CF-OT350T AdultColonoscope ___ Procedure: ?Colonoscopy Indications: ?Screening for [...] Procedure Code(s): ? --- Professional --- ? 85917, Colonoscopy, flexible; with removal of tumor(s), polyp(s), or ? other lesion(s) by snare technique Diagnosis Code(s): ? --- Professional --- ? Z12.11, Encounter for screening for malignant neoplasm of colon ? K62.1, Rectal polyp CPT copyright 2017 [employer]. All rights reserved. The codes documented in this report are preliminary and upon business continuity planning director review may be revised to meet current compliance requirements. Abraham Milner, 08/07/2018 9:10:30 AM I was physically present for the entire viewing portion of the exam. Abraham Milner Number of Addenda: 0 Note Initiated On: 08/07/2018 8:13 AM MRN: ?[id number] Procedure Date: ? 08/07/2018 8:13:49 AM Scope Withdrawal Time: 0 hours 13 minutes 27 seconds Total Procedure Duration: 0 hours 40 minutes 58 seconds Estimated Blood Loss: ? Scope In: 8:20:39 AM Scope Out: 9:01:37 AM RADIOLOGY RESULTS 08/07/2018 8:13 AM VENEER DEPARTMENT MANAGER Soham James MD PROCEDURES RADIOLOGY RESULTS * Glucose by meter (08/21/2012 7:19 AM VENEER DEPARTMENT MANAGER) Glucose 79 60 - 99 mg/dL POINT OF CARE TEST, GLUCOSE Comment:Dr/RN Notified 08/21/2012 7:19 AM VENEER DEPARTMENT MANAGER 08/21/2012 7:25 AM VENEER DEPARTMENT MANAGER Stacy Ayers MD [facility] POCT POINT OF CARE TEST, GLUCOSE from Last 3 Months or Most Recently Relevant to Health Maintenance Care Teams Soft Sugar Operator Head Relationship Specialty Start Date End Date Soham James MD [place] [id number] [place] [address] PCP - General Family Practice 07/25/12
--- OUTSIDE RECORDS SUMMARY | 2024-03-25 12:31 | XMS_ITS | Encounter Summary ---
Author Organization [facility] Address [address] [place] [address] Care Team Providers Care Collar Separator Name Role Phone Shanae Ugarte APRN, C.N.P. Primary Care Provide r Encounter Details Date Type Department Care Team (Late st Contact Info) Description 01/16/2024 Orders Only [facility] PCP [facility] MNT Shanae Ugarte, ARRON, C.N.P. [address] [place] [address] Diabetes Mellitus Type 2 With [...] documented as of this encounter Care Teams Collar Separator Relationship Specialty Start Date End Date Shanae Ugarte APRN, C.N.P. [address] [place] [id number] PCP - General 11/24/23 documented as of this encounter
--- OUTSIDE RECORDS SUMMARY | 2024-03-25 12:31 | XMS_ITS | Encounter Summary ---
Author Organization [facility] Address [address] [place] [address] Care Team Providers Care Artillery Specialist Name Role Phone Shanae Ugarte APRN, C.N.P. Primary Care Provide r Encounter Details Date Type Department Care Team (Late st Contact Info) Description 01/02/2024 Clinical Communication Department of Family Medicine, [facility], in [address] [address] Shanae Ugarte APRN, C.N.P. [address] [place] [address] Social History Tobacco Use Types [...] copy of this note was faxed to [facility] so that they would have all of the necessary information. documented in this encounter Plan of Treatment Not on file documented as of this encounter Visit Diagnoses Not on filedocumented in this encounter Additional Health Concerns Assessment Noted Time PHQ-9 Depression Total Score: 5 10/11/19 24 9:23 PM CDT documented as of this encounter Care Teams Artillery Specialist Relationship Specialty Start Date End Date Shanae Ugarte APRN, C.N.P. [address] [place] [address] PCP - General 11/24/23 documented as of this encounter
--- OUTSIDE RECORDS SUMMARY | 2024-03-25 12:31 | XMS_ITS ---
Author Organization [facility] Address [address] [place] [address] Care Team Providers Care Senior Devops Engineer Name Role Phone Unavailable Unavailable Unavailable Surgery Details Not on file Complications Check Surgery Details section. Procedure Estimated Blood Loss Check Surgery Details section. Procedure Findings Check Surgery Details section. Procedure Specimens Taken Check Surgery Details section.
--- OUTSIDE RECORDS SUMMARY | 2024-03-25 12:31 | XMS_ITS | Clinical Summary ---
Author Organization [facility] Address [address] [place] [address] Care Team Providers Care Apparel Embroidery Digitizer Name Role Phone Soham James MD Primary Care Provider [phone] Allergies Active Allergy Reactions Criticality Noted Date [...] Comments Blood Pressure 118/67 08/07/2018 9:20 AM RF MANAGER Pulse 64 08/07/2018 9:20 AM RF MANAGER Temperature 36.6 ??C (97.9 ??F) 08/21/2012 8:20 AM CS T Respiratory Rate 20 08/07/2018 9:30 AM RF MANAGER Oxygen Saturation 91% 08/07/2018 9:27 AM RF MANAGER Inhaled Oxygen Concentration - - Weight 124.7 kg (275 lb) 08/07/2018 7:52 AM RF MANAGER Height 177.8 cm (5' 10) 08/07/2018 7:52 AM RF MANAGER Body Mass Index 39.46 08/07/2018 7:52 AM RF MANAGER Plan of Treatment Health Maintenance Due Date Last Done Comments ADVANCE CARE PLANNING 1945 ANNUAL REVIEW OF HM ORDERS 1945 LIPID 1945 TSH W/FREE T4 REFLEX 1945 HEPATITIS C SCREENING 1965 LUNG CANCER SCREENING 1997 ZOSTER IMMUNIZATION (1 of 2) 1997 FALL RISK ASSESSMENT 2012 GLUCOSE 08/21/2015 08/21/2012, 07/11, 08/07/2012, Additional history exists DTAP/TDAP/TD IMMUNIZATION (2 - Td or Tdap) 02/24/2020 02/23/2010 RSV VACCINE (1 - 1-dose 75+ series) 2022 PHQ-2 (once per calendar year) 2023 COVID-19 Vaccine ( - 2022- season) 2024 05/12/2023, 05/09/2022, 01/29/2022, Additional history [...] Diagnosis Comments COLONOSCOPY Routine 08/07/2018 8:13 AM RF MANAGER GLUCOSE BY METER Routine 08/21/2012 7:19 AM RF MANAGER from Last 3 Months or Most Recently Relevant to Health Maintenance Results * COLONOSCOPY (08/07/2018 8:13 AM RF MANAGER) COLONOSCOPY [facility] Endoscopy Department ___ Patient Name: Shin Best ? Procedure Date: 08/07/2018 8:13 AM ? Date of : 1945 ? Admit Type: Outpatient Age: 73 ? Room: 3 Note Status: Finalized ?Attending MD: Abraham Milner , Total Sedation Time: 41 mins of continuous bedside 1:1 Instrument Name: 325 CF-OI950I AdultColonoscope ___ Procedure: ?Colonoscopy Indications: ?Screening for [...] Procedure Code(s): ? --- Professional --- ? 55315, Colonoscopy, flexible; with removal of tumor(s), polyp(s), or ? other lesion(s) by snare technique Diagnosis Code(s): ? --- Professional --- ? Z12.11, Encounter for screening for malignant neoplasm of colon ? K62.1, Rectal polyp CPT copyright 2017 [employer]. All rights reserved. The codes documented in this report are preliminary and upon utility supervisor boat and plant review may be revised to meet current compliance requirements. Abraham Milner, 08/07/2018 9:10:30 AM I was physically present for the entire viewing portion of the exam. Abraham Milner Number of Addenda: 0 Note Initiated On: 08/07/2018 8:13 AM MRN: ?[id number] Procedure Date: ? 08/07/2018 8:13:49 AM Scope Withdrawal Time: 0 hours 13 minutes 27 seconds Total Procedure Duration: 0 hours 40 minutes 58 seconds Estimated Blood Loss: ? Scope In: 8:20:39 AM Scope Out: 9:01:37 AM RADIOLOGY RESULTS 08/07/2018 8:13 AM RF MANAGER Soham James MD PROCEDURES RADIOLOGY RESULTS * Glucose by meter (08/21/2012 7:19 AM RF MANAGER) Glucose 79 60 - 99 mg/dL POINT OF CARE TEST, GLUCOSE Comment:Dr/RN Notified 08/21/2012 7:19 AM RF MANAGER 08/21/2012 7:25 AM RF MANAGER Stacy Ayers MD LAB - BEAKER POCT Performing Organization Address City/[facility] Co de Phone Number POINT OF CARE TEST, GLUCOSE from Last 3 Months or Most Recently Relevant to Health Maintenance Care Teams Apparel Embroidery Digitizer Relationship Specialty Start Date End Date Soham James MD [facility] [address] [place] [address] PCP - General Family Practice 07/25/12
--- OUTSIDE RECORDS SUMMARY | 2024-03-25 12:31 | XMS_ITS | Encounter Summary ---
Author Organization [facility] Address [address] [place] [address] Care Team Providers Care Shear Scrapman Name Role Phone Shanae Ugarte APRN, C.N.P. Primary Care Provide r Reason for Visit * Reason Comments Fall Encounter Details Date Type Department Care Team (Late st Contact Info) Description 03/08/2024 6:24 PM CDT - 03/08/2024 8:42 PM CDT Emergency [facility] [address] [place] [address] Jaden Serna, P.A.-C. [address] [place] [address] Laceration Forehead Initial (Primary Dx); [...] Body Mass Index 37.89 05/31/2023 2:47 PM REPLENISHMENT ANALYST documented in this encounter Discharge Instructions * Discharge Instructions* Jaden Serna P.A.-C. - 03/08/2024 8:31 PM CDT Sutures in your forehead can come out in 5 days Sutures in your ankle can come out in 7-10 days * Attachments The following attachments cannot be sent through Care Everywhere. * Laceration Care Adult Ujwz-il-Xgwk (Faroese) documented in this encounter Medications at Time [...] tablet 3 05/12/2023 clotrimazole (LOTRIMIN) 1 % creamIndications:[place] titis Seborrheic Apply 1 Application topically 2 [...] by mouth. 07/06/2023 triamcinolone (KENALOG) 0.1 % creamIndications:[place] titis Seborrheic Apply 1 Application topically 2 [...] by: Patient REVIEW OF SYSTEMS As per [facility] OBJECTIVE Initial Vitals Temperature 03/08/241826 36.7 ??C [...] Cervical spine straightening, trace likely chronic/degenerative C4- S9okfbcmjemhczgmj. Vertebral body heights, disc spaces, dens and facetsintact. Chronic traumatic deformity C6 spinous process tip. Advanced C2-C3disc degeneration and inferior C2 endplate sclerotic permeation. Other moderate multilevel multifactorialspondylotic change. Suspect moderate/marked canal stenosis at C3-S3jnvlnagt to spondylosis. Negative for prevertebral edema. Clear lung apices. IMPRESSION: Negative for acute cervical spine fracture. Jaden Serna P.A.-C. Mayte CT PROCEDUR ES * CT Head without IV Contrast (03/08/2024 7:11 PM CDT) Anatomical Region Laterality Modality Head, Neuroradiology [facility] , Neuroradiology [facility], Neuroradiology [facility] N/A Computed Tomography 03/08/2024 7:04 PM [...] Given 03/08/2024 8:08 PM CDT 1 Application cwmecpplr-yfknnqupc-uvnanfxu ne 4-0.05-0.5 % gel 1 mL (L.E.T. [...] R.N.) PRN Medication Order 03/06/2024 03/07/2024 03/08/2024 cbtwgvqvz-vtatgsbqo-nawlxpshzn 4-0.05-0.5 % gel 1 mL (L.E.T. Gel) 1 mL, topical, As needed, mild pain or score 1-3 of 10, Starting on Mon03/08/24 at 1952 documented in this encounter Additional Health Concerns Assessment Noted Time PHQ-9 Depression Total Score: 5 10/11/19 24 9:23 PM CDT documented as of this encounter Care Teams Shear Scrapman Relationship Specialty Start Date End Date Shanae Ugarte APRN, C.N.P. [address] [place] [address] PCP - General 11/24/23 documented as of this encounter
--- OUTSIDE RECORDS SUMMARY | 2024-03-25 12:32 | XMS_ITS | Encounter Summary ---
Author Organization [facility] Address [address] [place] [address] Care Team Providers Care Jawbone Puller Name Role Phone Soham James MD Primary Care Provider [phone] Encounter Details Date Type Department Care Team (Late st Contact Info) Description 2023 Telephone [facility] Podiatry [address] [place] [address] Piper Castanon, DPMikki, Podiatry/Foot and Ankle Surgery [address] [place], [place] [address] Social History Tobacco Use Types Packs/Day Years [...] referral we received from Dr. Soham James ([facility]) via fax this morning. Scheduled patient to see Dr. Castanon on June 20 in [place]. Patient requested the building address be sent to him via mail, so a letter was sent out. Patient was appreciative of the call. Dionte Rodrigez, Visit [employer] BEVELLER documented in this encounter Plan of Treatment Not on file documented as of this encounter Visit Diagnoses Not on filedocumented in this encounter Care Teams Jawbone Puller Relationship Specialty Start Date End Date Soham James MD [facility] [address] [place] [address] PCP - General Family Practice 07/25/12 documented as of this encounter
[2024-03-25 12:46] LABS: Basophils Absolute Auto 0.07 K/uL (0.00-0.30); Basophils Percent Auto 0.7 % (0.0-3.0); Eosinophils Absolute Auto 0.26 K/uL (0.00-0.50); Eosinophils Percent Auto 2.7 % (0.0-7.0); Hematocrit 38.3 % (37.0-53.0); Hemoglobin* 12.6 gm/dL (13.5-17.5); Immature Granulocytes Abs Auto 0.16 K/uL (0.00-0.30); Immature Granulocytes Pct Auto 1.6 %; Lymphocytes Percent Auto 14.7 % (20-44); Mean Corpuscular HGB Conc 33 gm/dL (32-36); Mean Corpuscular Hemoglobin 28 pg (26-34); Mean Corpuscular Volume 86 fL (80-100); Monocytes Percent Auto 10.3 % (0.0-11.0); Platelet Count* 372 K/uL (140-440); RDW Coefficient of Variation % 14.2 % (11.5-15.5); Red Blood Count 4.47 m/uL (4.30-5.90); White Blood Count* 9.72 K/uL (4.50-11.00)
[2024-03-25 12:48] LABS: Slide Review Reflex No
[2024-03-25 12:59] LABS: Chloride* 96 mmol/L (96-114); Potassium* 4.4 mmol/L (3.6-5.1); Sodium* 133 mmol/L (135-149)
[2024-03-25 13:01] LABS: Creatinine* 1.5 mg/dL (0.5-1.5); Est. Creatinine Clearance* 44.62; Estimated Glomerular Filt Rate 48 ml/min
[2024-03-25 13:02] LABS: Alanine Aminotransferase* 9 U/L (4-50); Alkaline Phosphatase* 110 U/L (40-150); Anion Gap 9 mEq/L (7-15); Aspartate Amino Transferase* 15 U/L (12-35); Bilirubin Direct* 0.5 mg/dL (0.0-0.5); Bilirubin Total* 0.7 mg/dL (0.1-1.5); Blood Urea Nitrogen* 28 mg/dL (7-30); Carbon Dioxide* 28 mmol/L (20-32); Glucose* 290 mg/dL (60-115); Total Protein* 6.8 g/dL (6.0-8.3)
[2024-03-25 13:03] LABS: Calcium* 9.3 mg/dL (8.4-10.6)
[2024-03-25 13:06] VITALS: BP 168/87; PULSE 78; RESP 14; O2SAT 100
[2024-03-25 13:10] LABS: C Reactive Protein* < 0.5 mg/dL (0.5-1.0)
[2024-03-25 13:21] LABS: Procalcitonin* 0.07 ng/mL (<0.50)
[2024-03-25 13:24] LABS: PCR FLU A Negative PCR FLU A (Negative); PCR FLU B Negative PCR FLU B (Negative); PCR RSV Negative PCR RSV (Negative); SARS PCR* Negative SARS-CoV-2 (Negative)
[2024-03-25 13:40] LABS: Appearance Urine Clear (Clear); Bilirubin Urine Negative (Negative); Blood Urine Negative (Negative); Color Urine Yellow (Yellow); Glucose Urine 2+ (Negative); Ketones Urine Negative (Negative); Leukocyte Esterase Urine Negative (Negative); Nitrite Urine Negative (Negative); Protein Urine Negative (Negative); Specific Gravity Urine 1.015 (1.000-1.030); Urobilinogen Urine 0.2 (0.2-1.0)
[2024-03-25 13:56] LABS: RBC Urine 0-2 (0-2); WBC Urine 0-2 (0-5)
[2024-03-25 13:57] LABS: Squamous Epithelial Cell Urine Few (None-Few)
--- NOTE | 2024-03-25 15:07 | ED_ITS ---
HPI - Altered Mental Status General Date Seen: 03/25/24 Chief Complaint: Altered Mental Status Stated Complaint: confusion, low blood sugars, multiple falls Time Seen by Provider: 03/25/24 11:58 Source: patient and family Mode of arrival: ambulatory Limitations: no limitations History of Present Illness HPI narrative: Patient is a 78-year-old gentleman who was recently released from the hospital on March 21, toe home. He was admitted at this institution for altered mental status and left-sided facial erysipelas. He was sent home on doxycycline, and since then his family is noted there has been no change in his mental status he still is altered, he also was having episodes of falling he has fallen 3 times in last 24 hours, some of these falls are related to his hypoglycemia as low as 50, and the a family member who is a nurse is been trying to titrate his Lantus, and there has been some improvement with this. They initially thought they could take him home care from but at the present time these really disputes that they cannot. At least 1 of these episodes was a fall with a head injury, he is here with his and his son, and his sjrqyukb-mo-ozw also is here. No history of fevers chills or sweats he is eating and drinking normally, his urinary issues of likely improved a little bit they say. They remind me that 2 weeks ago he was driving RV with no problems at all. He also of concern is he has had headache, since he was in the hospital. MD complaint: altered mental status and confusion Related Data Home Medications ?Medication ?Instructions ?Recorded ?Confirmed carvedilol 6.25 mg tablet 6.25 mg PO DAILY 12/05/23 03/18/24 finasteride 5 mg tablet 5 mg PO DAILY 12/05/23 03/18/24 folic acid 1 mg tablet 1 mg PO DAILY 12/05/23 03/18/24 furosemide 40 mg tablet 40 mg PO DAILY 12/05/23 03/18/24 gabapentin 100 mg capsule 200 mg PO BID 12/05/23 03/18/24 nitroglycerin 0.4 mg sublingual 0.4 mg sublingual Q5M PRN 12/05/23 03/18/24 tablet omeprazole 20 mg capsule,delayed 20 mg PO QDAY 12/05/23 03/18/24 release potassium chloride 10 mEq 20 meq PO BID 12/05/23 03/18/24 tablet,extended release(part/cryst) (Klor-Con M) rosuvastatin 20 mg tablet 20 mg PO DAILY 12/05/23 03/18/24 spironolactone 25 mg tablet 25 mg PO DAILY 12/05/23 03/18/24 tamsulosin 0.4 mg capsule 0.4 mg PO DAILY 12/05/23 03/18/24 clopidogrel 75 mg tablet 75 mg PO DAILY 03/18/24 03/18/24 duloxetine 60 mg capsule,delayed 60 mg PO DAILY 03/18/24 03/18/24 release insulin aspart U-100 100 unit/mL 16 unit subcut TID 03/18/24 03/18/24 (3 mL) subcutaneous pen (Novolog FlexPen U-100 Insulin aspart) insulin glargine 100 unit/mL (3 70 unit subcut BID 03/18/24 03/18/24 mL) subcutaneous pen (Lantus Solostar U-100 Insulin) levothyroxine 100 mcg tablet 100 mcg PO DAILY 03/18/24 03/18/24 metformin 500 mg tablet,extended 1,000 mg PO BID 03/18/24 03/18/24 release 24 hr Previous Rx's ?Medication ?Instructions ?Recorded cephalexin 500 mg capsule 500 mg PO TID 4 days #12 caps 03/21/24 doxycycline hyclate 100 mg tablet 100 mg PO BID 10 days #20 tabs 03/21/24 thiamine HCl (vitamin B1) 100 mg 100 mg PO DAILY #7 tabs 03/21/24 tablet Allergies Allergy/AdvReac Type Severity Reaction Status Date / Time Penicillins Allergy Intermediate Hives Verified 03/18/24 08:46 esomeprazole [From Nexium] AdvReac Unknown Nausea Verified 03/18/24 08:46 Vbxiqfj-WJE-QpH Reductase AdvReac Unknown Muscle Pain Verified 03/18/24 08:46 Inhibitor Review of Systems Status of ROS: Reports: 10 or more systems reviewed and unremarkable except as noted in History and below [facility] Medical History Paroxysmal atrial fibrillation ?I48.0 - Paroxysmal atrial fibrillation (ICD-10) Bilateral foot pain ?M79.671 - Pain in right foot (ICD-10) ?M79.672 - Pain in left foot (ICD-10) Hyperglycemia ?R73.9 - Hyperglycemia, unspecified (ICD-10) Lyme disease with largest skin lesion of 2 inches or more ?A69.20 - Lyme disease, unspecified (ICD-10) Obesity (BMI 30-39.9) ?E66.9 - Obesity, unspecified (ICD-10) Venous insufficiency (chronic) (peripheral) ?I87.2 - Venous insufficiency (chronic) (peripheral) (ICD-10) History of cardiac arrest (06/2023) ?Z86.74 - Personal history of sudden cardiac arrest (ICD-10) ASO (arteriosclerosis obliterans) ?I70.90 - Unspecified atherosclerosis (ICD-10) History of alcohol abuse ?F10.11 - Alcohol abuse, in remission (ICD-10) Osteoarthritis of multiple joints ?M15.9 - Polyosteoarthritis, unspecified (ICD-10) Chronic kidney disease, stage 3b ?N18.32 - Chronic kidney disease, stage 3b (ICD-10) BPH (benign prostatic hyperplasia) ?N40.0 - Benign prostatic hyperplasia without lower urinary tract symptoms (ICD-10) History of CVA (cerebrovascular accident) (06/11/23) ?Z86.73 - Personal history of transient ischemic attack (TIA), and cerebral infarction without residual deficits (ICD-10) Hypothyroidism ?E03.9 - Hypothyroidism, unspecified (ICD-10) Hypertensive heart disease without HF (heart failure) ?I11.9 - Hypertensive heart disease without heart failure (ICD-10) Hyperlipidemia ?E78.5 - Hyperlipidemia, unspecified (ICD-10) Erectile dysfunction ?N52.9 - Male erectile dysfunction, unspecified (ICD-10) History of ST elevation myocardial infarction (STEMI) (08/07/18) ?I25.2 - Old myocardial infarction (ICD-10) Hypertension ?I10 - Essential (primary) hypertension (ICD-10) CAD (coronary artery disease) ?I25.10 - Atherosclerotic heart disease of [place] coronary artery without angina pectoris (ICD-10) TING (obstructive sleep apnea) ?G47.33 - Obstructive sleep apnea (adult) (pediatric) (ICD-10) Type 2 diabetes mellitus with diabetic neuropathy (~1993) ?E11.40 - Type 2 diabetes mellitus with diabetic neuropathy, unspecified (ICD-10) Diabetic foot ulcer ?E11.621 - Type 2 diabetes mellitus with foot ulcer (ICD-10) ?L97.509 - Non-pressure chronic ulcer of other part of unspecified foot with unspecified severity (ICD-10) Surgical History History of total bilateral knee replacement ?Z96.653 - Presence of artificial knee joint, bilateral (ICD-10) History of colonoscopy ?Z98.890 - Other specified postprocedural states (ICD-10) History of percutaneous coronary intervention ?Z98.61 - Coronary angioplasty status (ICD-10) Family History Father Asthma Mother Lung cancer Aunt Breast cancer Maternal Grandmother Diabetes Paternal Grandmother Diabetes Social History Narrative: , 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, 3 adult children, lives in [place] No regular exercise Nonsmoker, quit in 2004, before then 40 pack years Does not drink alcohol, Quit 06/2023 following many years of alcohol use disorder What is your current living situation?: I presently have a place to live Problems where you live: no known problems Problems where you live details: N/A In the past 12 months, utilities in danger of being shut off: no In past 12 months, lack of transportation kept you from medical appts, meetings, work, or getting things needed for daily living: no In the past 12 mos, have been you worried that your food would run out before you had money to buy more?: never true In the past 12 mos, the food you bought just didn't last and you didn't have money to buy more?: never true Highest level of school completed/degree received: Associate degree: occupational, technical, vocational program Smoking Status: Former smoker How often do you have a drink containing alcohol: never AUDIT-C Alcohol total score: 0 Non-prescribed substance use: denies use Caffeine: Yes How often does anyone, including family, friends and others, physically hurt you : never How often does anyone, including family, friends and others, insult or talk down to you: never How often does anyone, including family, friends and others, threaten you with harm: never How often does anyone, including family, friends and others, scream or curse at you: never Little interest or pleasure in doing things: not at all Feeling down, depressed, or hopeless: not at all service: No Exam Narrative: Exam Narrative: Patient is seen and stabilization room 2 he is in no apparent distress he is growing a little bit of appeared since I saw him last, he is alert, oriented to self, but not place or time pupils are equal round reactive to light, small pupils 1-2 mm, track normally, no nystagmus is TMs bilaterally are normal, oropharynx normal cranial nerves 3-12 are normal his neck is supple there is no meningismus, thick neck, cannot sees JVP, I do not hear any bruits. Chest is good air entry bilaterally with no wheezing crackles noted heart sounds no clicks murmurs or gallops his abdomen is soft, obese there is no guarding small bruise from an insulin spoke is noted on the right side of his abdomen otherwise normal moves all extremities independently well with 1 to 2+ edema noted. In his lower extremities. No rashes are noted early SIRS marked improvement of his facial erysipelas, Const: Vital Signs, click to edit/add: Vital Signs - 24 hr 03/25/24 10:58 03/25/24 13:06 Temperature 96.8 F L Pulse Rate 78 Pulse Rate [Pulse Oximeter] 99 Respiratory Rate 20 14 Blood Pressure 168/87 H Blood Pressure [Ri ght Upper Arm] 133/78 Pulse Oximetry 99 100 Oxygen Delivery Me thod Room Air Documenting provider has reviewed patient's vital signs: yes Course Course ED Course: I spoke to the patient and family, I can find no abnormality here suggestive of an acute problem, when he was in the hospital he had an MRI of his brain which showed microvascular disease, I do agree with him no however he is not safe to go home, admission to observation status is appropriate I do not know how this works exactly with transitioning to a fdc, was able to talk to the inpatient hospitalist, she accepted the patient, Vital Signs Vital signs: Initial Vital Signs Temperature 96.8 F L 03/25/24 10:58 Temperature Source Temporal Artery Scan 03/25/24 10:58 Pulse Rate 99 03/25/24 10:58 Respiratory Rate 20 03/25/24 10:58 Blood Pressure 133/78 03/25/24 10:58 Blood Pressure Mean 96 03/25/24 10:58 Blood Pressure Position Sitting 03/25/24 10:58 Pulse Oximetry 99 03/25/24 10:58 Oxygen Delivery Method Room Air 03/25/24 10:58 Vital Signs Temperature 96.8 F L 03/25/24 10:58 Pulse Rate 99 03/25/24 10:58 Respiratory Rate 20 03/25/24 10:58 Blood Pressure 133/78 03/25/24 10:58 Pulse Oximetry 99 03/25/24 10:58 Oxygen Delivery Method Room Air 03/25/24 10:58 Temperature 98.2 F 03/25/24 15:19 Pulse Rate 88 03/25/24 15:19 Respiratory Rate 18 03/25/24 15:19 Blood Pressure 167/86 H 03/25/24 15:19 Pulse Oximetry 96 03/25/24 15:19 Oxygen Delivery Method Room Air 03/25/24 15:19 MDM - Altered Mental Status MDM Narrative Medical decision making narrative: Life-threatening differential diagnosis considered include stroke, coronary artery disease, pneumonia, and heart failure. Other differential diagnosis incl ude but are not limited to electrolyte imbalances, anemia, medication reactions, and urinary tract infection Multiple differential diagnoses were considered for altered mental status. The life-threatening differential diagnosis considered include: Meningitis/encephalitis, bacteremia, subdural, cerebrovascular accident, SAH, and hypertensive encephalopathy. Other differential diagnosis included include medication effect, hypoxia, hypoglycemia, hypercalcemia, hypo or hypernatremia, hypothyroidism, hepatic encephalopathy, carbon monoxide poisoning, UTI, pneumonia, depression, seizure, as well as other etiologies. Medical Records Attestation: I reviewed the patient's medical records. Lab Data Attestation: I reviewed the patient's lab results. Labs: Lab Results 03/25/24 03/25/24 03/25/24 Range/Units 12:35 12:35 12:35 WBC 9.72 (4.50-11.00) K/uL RBC 4.47 (4.30-5.90) m/uL Hgb 12.6 L (13.5-17.5) gm/dL Hct 38.3 (37.0-53.0) % MCV 86 (80-100) fL MCH 28 (26-34) pg MCHC 33 (32-36) gm/dL RDW Coeff of Serina 14.2 (11.5-15.5) % Plt Count 372 (140-440) K/uL Neut % (Auto) 70.0 (42.0-72.0) % Lymph % (Auto) 14.7 L (20-44) % Jones % (Auto) 10.3 (0.0-11.0) % Eos % (Auto) 2.7 (0.0-7.0) % Baso % (Auto) 0.7 (0.0-3.0) % Neut # (Auto) 6.80 (1.7-7.0) K/uL Lymph # (Auto) 1.40 (0.90-2.90) K/uL Jones # (Auto) 1.00 H (0.00-0.90) K/UL Eos # (Auto) 0.26 (0.00-0.50) K/uL Baso # (Auto) 0.07 (0.00-0.30) K/uL Abs Immat Gran (auto) 0.16 (0.00-0.30) K/uL Imm/Tot Granulo (auto) 1.6 % Sodium 133 L (135-149) mmol/L Potassium 4.4 (3.6-5.1) mmol/L Chloride 96 (96-114) mmol/L Carbon Dioxide 28 (20-32) mmol/L Anion Gap 9 (7-15) mEq/L BUN 28 (7-30) mg/dL Creatinine 1.5 (0.5-1.5) mg/dL Estimated Creat Clear 44.62 Estimated GFR 48 ml/min Glucose 290 H (60-115) mg/dL Calcium 9.3 (8.4-10.6) mg/dL Total Bilirubin 0.7 Cancelled (0.1-1.5) mg/dL Direct Bilirubin 0.5 Cancelled (0.0-0.5) mg/dL AST 15 (12-35) U/L ALT (4-50) U/L Alkaline Phosphatase (40-150) U/L C-Reactive Protein (0.5-1.0) mg/dL Total Protein (6.0-8.3) g/dL Albumin (3.3-5.0) g/dL Procalcitonin (<0.50) ng/mL Urine Color (Yellow) Urine Appearance (Clear) Urine pH (5.0-8.5) Ur Specific [place] (1.000-1.030) Urine Protein (Negative) Urine Glucose (UA) (Negative) Urine Ketones (Negative) Urine Blood (Negative) Urine Nitrite (Negative) Urine Bilirubin (Negative) Urine Urobilinogen (0.2-1.0) Ur Leukocyte Esterase (Negative) Urine RBC (0-2) Urine WBC (0-5) Ur Squamous Epith Cells (None-Few) Urine Bacteria (None) SARS-CoV-2 (PCR) (Negative) Influenza Type A (PCR) (Negative) Influenza Type B (PCR) (Negative) RSV (PCR) (Negative) 03/25/24 03/25/24 03/25/24 Range/Units 12:35 12:35 12:35 WBC (4.50-11.00) K/uL RBC (4.30-5.90) m/uL Hgb (13.5-17.5) gm/dL Hct (37.0-53.0) % MCV (80-100) fL MCH (26-34) pg MCHC (32-36) gm/dL RDW Coeff of Serina (11.5-15.5) % Plt Count (140-440) K/uL Neut % (Auto) (42.0-72.0) % Lymph % (Auto) (20-44) % Jones % (Auto) (0.0-11.0) % Eos % (Auto) (0.0-7.0) % Baso % (Auto) (0.0-3.0) % Neut # (Auto) (1.7-7.0) K/uL Lymph # (Auto) (0.90-2.90) K/uL Jones # (Auto) (0.00-0.90) K/UL Eos # (Auto) (0.00-0.50) K/uL Baso # (Auto) (0.00-0.30) K/uL Abs Immat Gran (auto) (0.00-0.30) K/uL Imm/Tot Granulo (auto) % Sodium (135-149) mmol/L Potassium (3.6-5.1) mmol/L Chloride (96-114) mmol/L Carbon Dioxide (20-32) mmol/L Anion Gap (7-15) mEq/L BUN (7-30) mg/dL Creatinine (0.5-1.5) mg/dL Estimated Creat Clear Estimated GFR ml/min Glucose (60-115) mg/dL Calcium (8.4-10.6) mg/dL Total Bilirubin (0.1-1.5) mg/dL Direct Bilirubin (0.0-0.5) mg/dL AST Cancelled (12-35) U/L ALT 9 Cancelled (4-50) U/L Alkaline Phosphatase 110 Cancelled (40-150) U/L C-Reactive Protein < 0.5 L (0.5-1.0) mg/dL Total Protein 6.8 (6.0-8.3) g/dL Albumin (3.3-5.0) g/dL Procalcitonin (<0.50) ng/mL Urine Color (Yellow) Urine Appearance (Clear) Urine pH (5.0-8.5) Ur Specific [place] (1.000-1.030) Urine Protein (Negative) Urine Glucose (UA) (Negative) Urine Ketones (Negative) Urine Blood (Negative) Urine Nitrite (Negative) Urine Bilirubin (Negative) Urine Urobilinogen (0.2-1.0) Ur Leukocyte Esterase (Negative) Urine RBC (0-2) Urine WBC (0-5) Ur Squamous Epith Cells (None-Few) Urine Bacteria (None) SARS-CoV-2 (PCR) (Negative) Influenza Type A (PCR) (Negative) Influenza Type B (PCR) (Negative) RSV (PCR) (Negative) 03/25/24 03/25/24 03/25/24 Range/Units 12:35 12:35 13:25 WBC (4.50-11.00) K/uL RBC (4.30-5.90) m/uL Hgb (13.5-17.5) gm/dL Hct (37.0-53.0) % MCV (80-100) fL MCH (26-34) pg MCHC (32-36) gm/dL RDW Coeff of Serina (11.5-15.5) % Plt Count (140-440) K/uL Neut % (Auto) (42.0-72.0) % Lymph % (Auto) (20-44) % Jones % (Auto) (0.0-11.0) % Eos % (Auto) (0.0-7.0) % Baso % (Auto) (0.0-3.0) % Neut # (Auto) (1.7-7.0) K/uL Lymph # (Auto) (0.90-2.90) K/uL Jones # (Auto) (0.00-0.90) K/UL Eos # (Auto) (0.00-0.50) K/uL Baso # (Auto) (0.00-0.30) K/uL Abs Immat Gran (auto) (0.00-0.30) K/uL Imm/Tot Granulo (auto) % Sodium (135-149) mmol/L Potassium (3.6-5.1) mmol/L Chloride (96-114) mmol/L Carbon Dioxide (20-32) mmol/L Anion Gap (7-15) mEq/L BUN (7-30) mg/dL Creatinine (0.5-1.5) mg/dL Estimated Creat Clear Estimated GFR ml/min Glucose (60-115) mg/dL Calcium (8.4-10.6) mg/dL Total Bilirubin (0.1-1.5) mg/dL Direct Bilirubin (0.0-0.5) mg/dL AST (12-35) U/L ALT (4-50) U/L Alkaline Phosphatase (40-150) U/L C-Reactive Protein (0.5-1.0) mg/dL Total Protein Cancelled (6.0-8.3) g/dL Albumin 4.0 Cancelled (3.3-5.0) g/dL Procalcitonin 0.07 (<0.50) ng/mL Urine Color Yellow (Yellow) Urine Appearance Clear (Clear) Urine pH 6.0 (5.0-8.5) Ur Specific [place] 1.015 (1.000-1.030) Urine Protein Negative (Negative) Urine Glucose (UA) 2+ A (Negative) Urine Ketones Negative (Negative) Urine Blood Negative (Negative) Urine Nitrite Negative (Negative) Urine Bilirubin Negative (Negative) Urine Urobilinogen 0.2 (0.2-1.0) Ur Leukocyte Esterase Negative (Negative) Urine RBC 0-2 (0-2) Urine WBC 0-2 (0-5) Ur Squamous Epith Cells Few (None-Few) Urine Bacteria None (None) SARS-CoV-2 (PCR) Negative SARS-CoV-2 (Negative) Influenza Type A (PCR) Negative PCR FLU A (Negative) Influenza Type B (PCR) Negative PCR FLU B (Negative) RSV (PCR) Negative PCR RSV (Negative) Imaging Data CT scan - head: Attestation: I have reviewed the pertinent imaging results. My impression: No acute findings on CT, by my review Radiologist's impression: No acute findings per Radiology review. ECG Data Attestation: I personally reviewed and interpreted this ECG as follows: ECG interpretation date: 03/25/24 Prior ECG tracings: available for review Interpretation: EKG shows normal sinus rhythm, with a right bundle-branch block, ventricular rate of 74, normal QRS, normal QT. slight increase in the QTC is noted no change from previous EKG is noted. Discharge Plan Discharge Clinical Impression: Altered mental status, Weakness, Headache, History of erysipelas, Falls, Cognitive safety issue Patient Disposition: Admitted As Observation Condition: Stable Activity Level: Light activity
[2024-03-25 15:19] VITALS: BP 167/86; PULSE 88; RESP 18; TEMP 36.8; O2SAT 96; BMI 33.9
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
--- NOTE | 2024-03-25 16:13 | PC.SOCIAL ---
Addendum entered by TARIQ Buenrostro 03/25/24 16:27: Social work: [facility] and requesting information be sent tomorrow morning. fountain worker to follow up as needed. Original Note: Discharge planning: Met with pt, and dtr-in-law, Shanae [phone], regarding discharge plan. Family shared they were hoping pt could stay at home, but he has fallen twice since discharge from the hospital and they are requesting a rehab stay at a group home facility. Provided family with written resource list of facilities including the [place] [facility] ratings and where to find the website with additional rating information. requested placement at facilities in this order. Called the facilities with the listed results: 1. [facility] - no beds available. 2. [facility] - no beds available. 3. [facility] - left message and awaiting call back with decision on admit. fountain worker to follow up as needed.
[2024-03-25] MEDS: INSULIN ASPART 100 UNIT/ML SUBCUT ×2 (17:28→21:09)
[2024-03-25 19:00] VITALS: BP 179/87; PULSE 84; RESP 18; TEMP 36.8; O2SAT 96
[2024-03-25] MEDS: POTASSIUM CHLORIDE 10 MEQ CAPSULE ER 20 MEQ PO (21:08)
[2024-03-25] MEDS: DOXYCYCLINE HYCLATE 100 MG PO (21:08)
[2024-03-25] MEDS: ROSUVASTATIN CALCIUM 10 MG TABLET 20 MG PO (21:08)
[2024-03-25] MEDS: GABAPENTIN 100 MG CAPSULE 200 MG PO (21:08)
[2024-03-25] MEDS: INSULIN GLARGINE,HUM.REC.ANLOG 100 UNIT/ML INSULN.PEN 25 UNIT SUBCUT (21:09)
[2024-03-25] MEDS: METFORMIN 1,000 MG TABLET 1000 MG PO (21:09)
[2024-03-25] MEDS: SODIUM CHLORIDE 0.9 % (FLUSH) 10 ML SYRINGE 5 ML IVF (21:10)
[2024-03-26] VITALS (9 sets, daily range): BP systolic 139–198; BP diastolic 62–100; PULSE 75–92; RESP 16–22; TEMP 36.6–38.6; O2SAT 93–98
[2024-03-26] MEDS: DEXTROSE 50 % SYRINGE IVP (04:39)
--- NOTE | 2024-03-26 06:40 | PC.NURSE ---
Pt is alert and oriented to self only. Afebrile. Pt denies pain, chest pain, SOB, and N/V. Around 0400 this RN came into pt?s room to obtain vital signs, RN noted pt was sleepy but would move his extremities?and fidget with the pulse oximeter. RN attempted to wake pt up to a more alert state and pt would open eyes but only briefly, pt seemed more confused, RN took blood sugar it was 30. Attempted to get pt to drink orange juice but pt was unable to follow direction,?medical charge entry specialist Vicki called and updated MD Archer, orders given to give 25g D50% IVP, blood sugar rechecked after 15mins it was 148. Pt became more alert, making eye contact, was able to drink some orange juice and denied pain, nausea, or lightheadedness. Pt is up A1 with walker, voiding and tolerating a therapeutic diet. ?Pt Bs checked around 0645 blood sugar was 60 gave pt orange juice and toast blood sugar went up to 70 updated MD Og and oncoming RN.
[2024-03-26] MEDS: 5 % DEXTROSE IN LAC RINGER'S 1,000 ML 125 ML IV ×2 (08:30→16:16)
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
[2024-03-26 10:06] LABS: Basophils Percent Auto 0.5 % (0.0-3.0); Hematocrit 37.7 % (37.0-53.0); Hemoglobin* 12.5 gm/dL (13.5-17.5); Immature Granulocytes Pct Auto 1.3 %; Lymphocytes Percent Auto 11.5 % (20-44); Mean Corpuscular HGB Conc 33 gm/dL (32-36); Mean Corpuscular Hemoglobin 28 pg (26-34); Mean Corpuscular Volume 85 fL (80-100); Monocytes Percent Auto 8.8 % (0.0-11.0); Neutrophils Percent Auto 76.9 % (42.0-72.0); Platelet Count* 423 K/uL (140-440); RDW Coefficient of Variation % 13.9 % (11.5-15.5); Red Blood Count 4.44 m/uL (4.30-5.90); White Blood Count* 11.77 K/uL (4.50-11.00)
[2024-03-26 10:10] LABS: Slide Review Reflex No
--- NOTE | 2024-03-26 10:12 | CRLHL7_ITS ---
For Patients: As a result of the Century Cures Act, medical imaging exams and procedure reports are released immediately into your electronic medical record. You may view this report before your referring provider. If you have questions, please contact your health care provider. Indication: Aspiration Comparison: Two-view chest March 18, 2024 Technique: Single AP view chest Findings: There is hyperinflation and chronic interstitial change. There is an elevated right hemidiaphragm again seen with likely basilar atelectasis. There is no obvious dense consolidation, pneumothorax or pleural effusion. The cardiac silhouette is mildly prominent. The bony thorax is grossly intact. Impression: Mildly elevated right hemidiaphragm with basilar atelectasis. Chronic interstitial changes. No obvious dense consolidation. Dictated by Luís Mueller MD @ 03/26/2024 10:53:36 AM (Electronically Signed)
[2024-03-26 10:24] LABS: Chloride* 97 mmol/L (96-114)
[2024-03-26 10:25] LABS: Potassium* 3.7 mmol/L (3.6-5.1); Sodium* 132 mmol/L (135-149)
[2024-03-26 10:27] LABS: Anion Gap 9 mEq/L (7-15); Carbon Dioxide* 26 mmol/L (20-32); Creatinine* 1.1 mg/dL (0.5-1.5); Est. Creatinine Clearance* 60.85; Estimated Glomerular Filt Rate 70 ml/min
[2024-03-26 10:28] LABS: Blood Urea Nitrogen* 23 mg/dL (7-30); Calcium* 9.2 mg/dL (8.4-10.6); Glucose* 108 mg/dL (60-115)
--- NOTE | 2024-03-26 10:31 | REH.PT ---
Order for PT recieved. Patient is not responsive this am so PT eval on hold. Will ck status tomorrow.
--- NOTE | 2024-03-26 10:33 | PC.SOCIAL ---
Social work: At 9:48, called pt's dtr-in-law Shanae, who school social worker had been told yesterday would be contact today as was working today, at RN request to clarify if is able to come in to the hospital. Shanae states she is able to come in and is available by phone. At Shanae's request, requested charge nurse called Shanae back to answer medical questions.
[2024-03-26] MEDS: FUROSEMIDE 10 MG/ML inj 20 MG IVP (11:31)
--- NOTE | 2024-03-26 12:03 | REH.OT ---
Order received for OT consult. Pt. not able to participate in evaluation today d/t medical condition. OT will reattempt evaluation tomorrow.
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
[2024-03-26] MEDS: ACETAMINOPHEN 650 MG SUPP PR (13:26)
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
--- NOTE | 2024-03-26 16:45 | PC.SOCIAL ---
Discharge planning: Received call back from [facility] stating pt does not meet criteria for rehab bed and they do not have a usp care bed. If pt is appropriate for a rehab bed tomorrow, they will evaluate him for that if still available. They will not hold a rehab bed for pt. Met with and family and explained this decision. would like pt to stay as close to [place] as possible but will agree with placement at a facility in [place] as second choice and [place] as the next choice. Explained that a terminal block assembler care stay at a residential would not be covered by insurance and that there may be an enhanced assisted living bed available at [facility] or [facility]. is interested in exploring enhanced assisted living as an option. family service worker to follow up as needed.
[2024-03-26] MEDS: INSULIN ASPART 100 UNIT/ML SUBCUT ×2 (17:39→21:35)
--- NOTE | 2024-03-26 21:07 | PC.NURSE ---
pt restless. BI SOLUTIONS ARCHITECT at BS for now.
[2024-03-26] MEDS: POTASSIUM CHLORIDE 10 MEQ CAPSULE ER 20 MEQ PO (21:31)
[2024-03-26] MEDS: GABAPENTIN 100 MG CAPSULE 200 MG PO (21:32)
[2024-03-26] MEDS: ROSUVASTATIN CALCIUM 10 MG TABLET 20 MG PO (21:32)
--- NOTE | 2024-03-26 23:12 | PC.NURSE ---
Pt noted to have pulled CPAP off, across the bed and entire unit landed on the floor and water spilled out. Picked it up and appears to be working. Patient declined to have it back on. Patient turned and repositioned.
[2024-03-27] MEDS: 5 % DEXTROSE IN LAC RINGER'S 1,000 ML 125 ML IV (00:19)
[2024-03-27 03:49] VITALS: PULSE 70; RESP 20; TEMP 36.4; O2SAT 93
[2024-03-27 05:54] VITALS: RESP 24
[2024-03-27 06:53] LABS: Hematocrit 33.9 % (37.0-53.0); Hemoglobin* 11.1 gm/dL (13.5-17.5); Mean Corpuscular HGB Conc 33 gm/dL (32-36); Mean Corpuscular Hemoglobin 28 pg (26-34); Mean Corpuscular Volume 87 fL (80-100); Platelet Count* 332 K/uL (140-440); Red Blood Count 3.92 m/uL (4.30-5.90); White Blood Count* 16.81 K/uL (4.50-11.00)
[2024-03-27 06:59] LABS: Slide Review Reflex No
[2024-03-27 07:10] LABS: Chloride* 94 mmol/L (96-114)
[2024-03-27 07:11] LABS: Potassium* 3.8 mmol/L (3.6-5.1); Sodium* 128 mmol/L (135-149)
[2024-03-27 07:13] LABS: Creatinine* 1.2 mg/dL (0.5-1.5); Est. Creatinine Clearance* 55.78; Estimated Glomerular Filt Rate 63 ml/min
[2024-03-27 07:14] LABS: Anion Gap 6 mEq/L (7-15); Blood Urea Nitrogen* 20 mg/dL (7-30); Calcium* 8.5 mg/dL (8.4-10.6); Carbon Dioxide* 28 mmol/L (20-32); Glucose* 268 mg/dL (60-115)
[2024-03-27 07:30] VITALS: BP 138/76; PULSE 78; RESP 18; TEMP 36.4; O2SAT 94
--- NOTE | 2024-03-27 07:47 | PC.NURSE ---
Pt is alert and oriented to self only. Afebrile. Pt was turned and repositioned throughout night, several attempts were made to place CPAP on pt but pt continuously pulled it off and grew irritated. Pt denies pain. BS a 0200 was 256 MD [place] updated orders given to decrease infusion rate of pt?s LR w/ 5% dextrose from 125 ml/hr to 75 ml/hr.?
[2024-03-27] MEDS: INSULIN ASPART 100 UNIT/ML SUBCUT ×4 (07:53→21:46)
--- NOTE | 2024-03-27 08:14 | CRLHL7_ITS ---
For Patients: As a result of the Century Cures Act, medical imaging exams and procedure reports are released immediately into your electronic medical record. You may view this report before your referring provider. If you have questions, please contact your health care provider. INDICATION: Fever, leukocytosis, choking episode. TECHNIQUE: CT chest with 75 cc Isovue 370 IV contrast. COMPARISON: CT PE 03/18/2024 FINDINGS: Lungs and pleura: Stable 6 millimeter pulmonary nodule in the right upper lobe (3/12). Minimal ground-glass opacity in the right upper lobe (3/15). Bibasilar atelectasis. No pleural effusions, pleural thickening, or pneumothorax. Heart and vasculature: Heart size is normal. LAD and left circumflex coronary artery calcification. Aortic annular and valvular calcification. Thoracic aorta and pulmonary artery are normal in caliber. Lymph nodes/mediastinum: No mediastinal, hilar, or axillary adenopathy. Chest wall: Gynecomastia. Upper abdomen: Normal. Bones: DISH. Moderate degenerative disease of the spine. IMPRESSION: No new findings compared to prior exam. Similar right upper lobe nodule and ground-glass opacity, which may be infectious/inflammatory. Consider a repeat CT in 6-12 months to evaluate for resolution. Please note that all CT scans at this facility use dose modulation, iterative reconstruction, and/or weight-based dosing when appropriate to reduce radiation dose to as low as reasonably achievable. Dictated by Brie Hernandez MD @ 03/27/2024 9:31:27 AM (Electronically Signed)
[2024-03-27 08:34] LABS: Lactate* 1.1 mmol/L (0.5-1.9)
[2024-03-27] MEDS: INSULIN GLARGINE,HUM.REC.ANLOG 100 UNIT/ML INSULN.PEN 25 UNIT SUBCUT (08:38)
[2024-03-27 09:15] LABS: Procalcitonin* 0.12 ng/mL (<0.50)
[2024-03-27] MEDS: PIPERACILLIN/TAZOBACTAM 3.375 GM in 0.9 % SODIUM CHLORIDE Mini-bag 100 ML IVPB ×3 (10:01→21:35)
[2024-03-27 11:10] VITALS: BP 148/75; PULSE 94; RESP 20; TEMP 36.3; O2SAT 96
[2024-03-27] MEDS: FUROSEMIDE 10 MG/ML inj 20 MG IVP (11:17)
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
[2024-03-27] MEDS: 3 % SODIUM CHLORIDE 500 ml 50 ML 33.33 ML IV (11:48)
--- NOTE | 2024-03-27 12:38 | PC.SOCIAL ---
Discharge planning: Met with and dtr as follow up to meeting yesterday regarding d/c planning. is aware discharge planning will continue when discharge needs are determined. agrees with plan for discharge to a snf facility. Needs at discharge will determine which facilities are appropriate to meet the pt's needs and whether pt is eligible for Medicare covered stay at a facility or will be private pay. Provided with written information on the [employer] for questions about finances for [facility]. has already been contacted by the [employer] from a referral made by this social media project manager at the 's request for long-term care assessment at during previous hospital stay. will pass along contact information from [employer] to one of children to follow up with her questions about applying for financial assistance if pt needs emt intermediate care. has social workers contact information and is aware social media project manager will follow up when discharge needs of pt are determined. sheep farm worker to follow up as needed.
[2024-03-27] MEDS: 5 % DEXTROSE IN LAC RINGER'S 1,000 ML 75 ML IV (13:38)
[2024-03-27 15:00] VITALS: BP 175/74; PULSE 73; PULSE 77; RESP 16; RESP 18; TEMP 37.1; O2SAT 96
[2024-03-27 15:26] LABS: Sodium* 130 mmol/L (135-149)
[2024-03-27 19:00] VITALS: BP 163/74; PULSE 77; RESP 16; TEMP 36.7; O2SAT 96
[2024-03-27] MEDS: ROSUVASTATIN CALCIUM 10 MG TABLET 20 MG PO (21:28)
[2024-03-27] MEDS: POTASSIUM CHLORIDE 10 MEQ CAPSULE ER 20 MEQ PO (21:28)
[2024-03-27] MEDS: SODIUM CHLORIDE 0.9 % (FLUSH) 10 ML SYRINGE 5 ML IVF (21:29)
[2024-03-27] MEDS: GABAPENTIN 100 MG CAPSULE 200 MG PO (21:29)
--- NOTE | 2024-03-27 22:44 | PC.NURSE ---
End of Shift: Patient pleasant and cooperative. Afebrile. Denies pain. Alert to self and that he is in the hospital. Up to chair with 2 assist, walker and gait belt. Tolerating minced and moist diet with no nausea. BG 345 at dinner, updated and IV MAVERICK. Jacqui patent.
[2024-03-28] VITALS (9 sets, daily range): BP systolic 113–167; BP diastolic 71–84; PULSE 75–79; RESP 14–20; TEMP 36.5–37.3; O2SAT 93–98
[2024-03-28] MEDS: PIPERACILLIN/TAZOBACTAM 3.375 GM in 0.9 % SODIUM CHLORIDE Mini-bag 100 ML IVPB ×4 (03:43→21:41)
[2024-03-28 06:31] LABS: Hematocrit 34.9 % (37.0-53.0); Hemoglobin* 11.4 gm/dL (13.5-17.5); Mean Corpuscular HGB Conc 33 gm/dL (32-36); Mean Corpuscular Hemoglobin 29 pg (26-34); Mean Corpuscular Volume 87 fL (80-100); Platelet Count* 325 K/uL (140-440); White Blood Count* 12.66 K/uL (4.50-11.00)
[2024-03-28 06:33] LABS: Slide Review Reflex No
[2024-03-28 06:46] LABS: Chloride* 99 mmol/L (96-114); Sodium* 132 mmol/L (135-149)
[2024-03-28 06:47] LABS: Potassium* 3.7 mmol/L (3.6-5.1)
[2024-03-28 06:49] LABS: Anion Gap 9 mEq/L (7-15); Blood Urea Nitrogen* 25 mg/dL (7-30); Carbon Dioxide* 24 mmol/L (20-32); Creatinine* 1.4 mg/dL (0.5-1.5); Est. Creatinine Clearance* 47.81; Estimated Glomerular Filt Rate 52 ml/min
[2024-03-28 06:50] LABS: Calcium* 8.7 mg/dL (8.4-10.6); Glucose* 160 mg/dL (60-115)
[2024-03-28] MEDS: INSULIN ASPART 100 UNIT/ML SUBCUT ×4 (07:33→21:45)
--- NOTE | 2024-03-28 08:04 | PC.NURSE ---
At 6:30 am Shin was standing in his doorway of his room. Nursing assistants walked with him back into his room. Patient was completely naked and noticed he had ripped his IV out. He was cleaned up as there was blood on his chest and arm where he had pulled his IV out. Nursing then ordered his breakfast.
[2024-03-28] MEDS: POTASSIUM CHLORIDE 10 MEQ CAPSULE ER 20 MEQ PO ×2 (09:14→21:31)
[2024-03-28] MEDS: DULOXETINE 30 MG CAPSULE DR 60 MG PO (09:14)
[2024-03-28] MEDS: LEVOTHYROXINE 100 MCG TABLET PO (09:15)
[2024-03-28] MEDS: GABAPENTIN 100 MG CAPSULE 200 MG PO ×2 (09:15→21:31)
[2024-03-28] MEDS: FINASTERIDE 5 MG TABLET PO (09:15)
[2024-03-28] MEDS: SPIRONOLACTONE 25 MG TABLET PO (09:15)
[2024-03-28] MEDS: TAMSULOSIN HCL 0.4 MG CAPSULE PO (09:15)
[2024-03-28] MEDS: OMEPRAZOLE 20 MG CAPSULE DR PO (09:15)
[2024-03-28] MEDS: FOLIC ACID 1 MG TABLET PO (09:15)
[2024-03-28] MEDS: carvediloL 6.25 MG TABLET PO (09:15)
[2024-03-28] MEDS: INSULIN GLARGINE,HUM.REC.ANLOG 100 UNIT/ML INSULN.PEN 40 UNIT SUBCUT (09:16)
[2024-03-28] MEDS: FUROSEMIDE 40 MG TABLET PO (09:19)
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
[2024-03-28] MEDS: 0.9 % SODIUM CHLORIDE 250 ml IV (15:44)
--- NOTE | 2024-03-28 18:21 | PC.NURSE ---
End of Shift: Patient pleasant and cooperative,alert and oriented on and off. Patient vitally stable, lungs clear, BS WNL, IV SL and intact. Patient SBA when ambulating. Osman intact and draining straw/clear urine, no BM. Patient denies pain. Patient tolerating regular diet. Blood sugars. 181,341,340. Patient has been up in chair majority of day.
[2024-03-28] MEDS: ROSUVASTATIN CALCIUM 10 MG TABLET 20 MG PO (21:30)
[2024-03-28] MEDS: SODIUM CHLORIDE 0.9 % (FLUSH) 10 ML SYRINGE 5 ML IVF (21:42)
--- NOTE | 2024-03-28 23:31 | PC.NURSE ---
[id number] End of Shift: Patient was oriented to name and month. Pt was severely confused and stating I want to go upstairs to my room. Environmental Conservation Officer reoriented Pt. Pt was uncooperative and refused care. Environmental Conservation Officer encouraged medications and the importance while Pt was refusing. Pt stated Just get out of my room and maybe we can get along. Patient SBA when ambulating. Osman intact and draining straw/clear urine. Patient denies pain. Close observation was taken place outside of Pts room. Pt in bed resting watching television, call light in reach.
[2024-03-29] VITALS (10 sets, daily range): BP systolic 119–156; BP diastolic 53–102; PULSE 59–80; RESP 16–20; TEMP 35.9–36.3; O2SAT 94–100
[2024-03-29] MEDS: ACETAMINOPHEN 325 MG TABLET 650 MG PO (00:04)
[2024-03-29] MEDS: MELATONIN 3 MG TABLET PO (00:04)
[2024-03-29] MEDS: PIPERACILLIN/TAZOBACTAM 3.375 GM in 0.9 % SODIUM CHLORIDE Mini-bag 100 ML IVPB ×2 (03:42→08:59)
[2024-03-29 06:33] LABS: Hematocrit 31.7 % (37.0-53.0); Hemoglobin* 10.3 gm/dL (13.5-17.5); Mean Corpuscular HGB Conc 33 gm/dL (32-36); Mean Corpuscular Hemoglobin 28 pg (26-34); Mean Corpuscular Volume 87 fL (80-100); Platelet Count* 341 K/uL (140-440); Red Blood Count 3.65 m/uL (4.30-5.90); White Blood Count* 9.47 K/uL (4.50-11.00)
--- NOTE | 2024-03-29 06:33 | PC.NURSE ---
End of shift [id number]: Pt has been alert & disoriented this shift. He is only oriented to self. Restful night vitals in place. Osman is patent and intact. Pt was restless & anxious beginning of the shift so PRN Tylenol & melatonin given @ 0005 and he?s had a restful night since. PIV in right AC SL and C/D/I, covered with tubi-crm solution architect to prevent pt from pulling it out. He is SBA for ambulation and transfers. Denies having any pain, nausea or dizziness. HS blood sugar: 232 and 0200 check: 113.?
[2024-03-29 06:47] LABS: Slide Review Reflex No
[2024-03-29 06:51] LABS: Chloride* 100 mmol/L (96-114)
[2024-03-29 06:52] LABS: Potassium* 3.6 mmol/L (3.6-5.1); Sodium* 131 mmol/L (135-149)
[2024-03-29 06:54] LABS: Carbon Dioxide* 25 mmol/L (20-32); Creatinine* 1.4 mg/dL (0.5-1.5); Est. Creatinine Clearance* 47.81; Estimated Glomerular Filt Rate 52 ml/min
[2024-03-29 06:55] LABS: Anion Gap 6 mEq/L (7-15); Blood Urea Nitrogen* 24 mg/dL (7-30); Calcium* 8.8 mg/dL (8.4-10.6); Glucose* 122 mg/dL (60-115)
[2024-03-29] MEDS: TAMSULOSIN HCL 0.4 MG CAPSULE PO (08:58)
[2024-03-29] MEDS: LEVOTHYROXINE 100 MCG TABLET PO (08:58)
[2024-03-29] MEDS: OMEPRAZOLE 20 MG CAPSULE DR PO (08:58)
[2024-03-29] MEDS: POTASSIUM CHLORIDE 10 MEQ CAPSULE ER 20 MEQ PO ×2 (08:58→20:47)
[2024-03-29] MEDS: FUROSEMIDE 40 MG TABLET PO (08:58)
[2024-03-29] MEDS: GABAPENTIN 100 MG CAPSULE 200 MG PO ×2 (08:59→20:47)
[2024-03-29] MEDS: SODIUM CHLORIDE 0.9 % (FLUSH) 10 ML SYRINGE 5 ML IVF ×2 (08:59→20:48)
[2024-03-29] MEDS: carvediloL 6.25 MG TABLET PO (08:59)
[2024-03-29] MEDS: DULOXETINE 30 MG CAPSULE DR 60 MG PO (08:59)
[2024-03-29] MEDS: FINASTERIDE 5 MG TABLET PO (08:59)
[2024-03-29] MEDS: FOLIC ACID 1 MG TABLET PO (08:59)
[2024-03-29] MEDS: SPIRONOLACTONE 25 MG TABLET PO (09:00)
[2024-03-29] MEDS: INSULIN GLARGINE,HUM.REC.ANLOG 100 UNIT/ML INSULN.PEN 40 UNIT SUBCUT (09:02)
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
[2024-03-29 10:04] LABS: Thyroid Stimulating Hormone* 0.732 uIU/mL (0.270-4.20)
[2024-03-29] MEDS: INSULIN ASPART 100 UNIT/ML SUBCUT ×3 (13:38→20:47)
--- NOTE | 2024-03-29 13:45 | CRLHL7_ITS ---
For Patients: As a result of the Century Cures Act, medical imaging exams and procedure reports are released immediately into your electronic medical record. You may view this report before your referring provider. If you have questions, please contact your health care provider. INDICATION: Status change TECHNIQUE: CT of the head was performed without IV contrast. COMPARISON: 03/25/2024. FINDINGS: Parenchyma: No acute hemorrhage, infarction, or mass. Moderate confluent periventricular white matter hypoattenuation is nonspecific and is favored to represent chronic small vessel ischemic disease. Ventricles and extra-axial spaces: Mild involutional changes. Visualized paranasal sinuses: Mild mucosal thickening of the left maxillary sinus. Mastoid air cells: Clear. Bones: No focal abnormality. Additional comment: None. IMPRESSION: No acute intracranial abnormality. Please note that all CT scans at this facility use dose modulation, iterative reconstruction, and/or weight-based dosing when appropriate to reduce radiation dose to as low as reasonably achievable. Dictated by Sundar Upton MD @ 03/29/2024 2:59:35 PM (Electronically Signed)
--- NOTE | 2024-03-29 14:55 | PC.NURSE ---
End of shift pt is very pleasant. he is alert x1. off on place and date,. he was up with PT this am and did well. Jacqui is patent and it was d/c 1245 Jacqui was d/c. pt has been sleepy all day. he was not restless or anxious. SL is patent and IV antibiotics infused with no problems. pt does have a small right side facial droop. right arm is covered with tubi-blow torch burner to prevent pt from pulling it out. blood sugar: 141 and 211. he was up with SBA earlier in the day,. 1245 Jacqui was d/c pt and had just left the room and helped to order lunch. plan was shower after. lunch arrived and pt was sitting up. he was leaning to the right. he has been leaning to the right on previous days. OT noticed he was coughing on his food. pt LOC was same as this am. but we did notice more weakness on the right side with arms and legs weak and not moving like earlier in the day. was notified and STAT head CT was ordered.
--- NOTE | 2024-03-29 15:59 | PM.EN ---
Chart Event Note Date Seen: 03/29/24 Chart Event Note: Was informed that the patient was doing well earlier today and then this afternoon had a recurrence of right-sided weakness, listing to the right side, right facial drooping, coughing when swallowing. Additionally he was sleepy and when talking not making sense. When I initially went to assess him in his hospital room and he was in radiology area for a CT scan of the head without contrast. When he returned I did examine him around 3:15 p.m. Although his eyes were shut when I spoke with him he moderate some sounds that I could not always understand but in between there he answered seemingly appropriately yes and no to certain questions. He was able to follow commands including moving the right side of his body. Did not have right facial droop. No obvious focal motor deficits. No longer coughing or sputtering when swallowing. Using his right and left hand to try to move himself in his bed and scratching his head. I re-examined him around 3:50 p.m. and he was able to transfer himself from supine to sitting and sitting to standing with gait belt, walker, and assist of 1. Able to ambulate to the bathroom with standby assist and then maneuver himself so he can sit on the toilet and go to the bathroom. CT scan of the head without contrast this afternoon was unchanged from previous CT scan of the head without contrast. No acute intracranial processes noted. Dense microvascular changes noted. Transient episode of right facial weakness, right-sided weakness, altered mental status with sleepiness. Differential diagnosis for this includes seizure with postictal state, TIA, stroke. Given relatively normal vital signs most likely it is going to be postictal state. History of traumatic brain injury, anoxic event, history of severe alcohol use disorder, and severe microvascular changes in the brain, he is certainly at high risk for seizures. I reviewed my impression with the patient and . Given that he had a similar episode this past Monday and now he is having another similar episode today, I am postulated he may be having intermittent seizures and thus we need to initiate an anti seizure medication at this time. Will give a single loading dose of levetiracetam (Keppra) 1000 mg IV today and then starting tomorrow 500 mg p.o. twice daily. Will ask our speech therapist to see him again today. Continue to work with PT and OT. Continue with the clopidogrel as presently instituted for now. If he continues to have these episodes on the anti seizure medication, may need to consider additional diagnostic measures including the possibility of an EEG. I reviewed my impression, recommendations with patient and . I answered their questions. He did not really have any questions but his did. They are agreeable.
[2024-03-29] MEDS: 0.9 % SODIUM CHLORIDE 250 ml IV (16:47)
[2024-03-29] MEDS: ROSUVASTATIN CALCIUM 10 MG TABLET 20 MG PO (20:47)
[2024-03-30 06:31] VITALS: RESP 16
--- NOTE | 2024-03-30 06:42 | PC.NURSE ---
End of shift [id number]: Confused and quite sleepy throughout shift. Ambulated to bathroom x1 w/ A2 walker and gait belt. Turn and repo q2h while in bed. Incontinent of bowel and bladder. Pt would open eyes during cares but would go right back to sleep. pm meds given crushed in pudding. Coughing noted after eating. Bed alarm in place.
[2024-03-30 06:51] LABS: Basophils Absolute Auto 0.05 K/uL (0.00-0.30); Basophils Percent Auto 0.6 % (0.0-3.0); Eosinophils Absolute Auto 0.45 K/uL (0.00-0.50); Eosinophils Percent Auto 5.3 % (0.0-7.0); Hematocrit 36.7 % (37.0-53.0); Immature Granulocytes Pct Auto 1.2 %; Lymphocytes Percent Auto 21.2 % (20-44); Mean Corpuscular HGB Conc 33 gm/dL (32-36); Mean Corpuscular Hemoglobin 28 pg (26-34); Mean Corpuscular Volume 86 fL (80-100); Monocytes Percent Auto 9.2 % (0.0-11.0); Neutrophils Absolute Auto 5.32 K/uL (1.7-7.0); Neutrophils Percent Auto 62.5 % (42.0-72.0); Platelet Count* 413 K/uL (140-440); RDW Coefficient of Variation % 13.9 % (11.5-15.5); Red Blood Count 4.26 m/uL (4.30-5.90)
[2024-03-30 07:02] LABS: Albumin* 3.7 g/dL (3.3-5.0); Chloride* 98 mmol/L (96-114)
[2024-03-30 07:03] LABS: Potassium* 3.5 mmol/L (3.6-5.1); Slide Review Reflex No; Sodium* 133 mmol/L (135-149)
[2024-03-30 07:05] LABS: Anion Gap 9 mEq/L (7-15); Aspartate Amino Transferase* 15 U/L (12-35); Bilirubin Total* 0.7 mg/dL (0.1-1.5); Carbon Dioxide* 26 mmol/L (20-32); Creatinine* 1.1 mg/dL (0.5-1.5); Est. Creatinine Clearance* 60.85; Estimated Glomerular Filt Rate 70 ml/min; Total Protein* 6.8 g/dL (6.0-8.3)
[2024-03-30 07:06] LABS: Alanine Aminotransferase* 9 U/L (4-50); Alkaline Phosphatase* 104 U/L (40-150); Blood Urea Nitrogen* 20 mg/dL (7-30); Calcium* 9.2 mg/dL (8.4-10.6); Glucose* 173 mg/dL (60-115)
[2024-03-30 08:15] VITALS: PULSE 74; RESP 18; RESP 20; O2SAT 98
[2024-03-30 08:16] VITALS: BP 187/81; PULSE 76; RESP 18; TEMP 36.4; O2SAT 98
[2024-03-30] MEDS: INSULIN ASPART 100 UNIT/ML SUBCUT ×2 (09:36→13:35)
[2024-03-30] MEDS: levETIRAcetam 500 MG TABLET PO (09:38)
[2024-03-30] MEDS: carvediloL 6.25 MG TABLET PO (09:38)
[2024-03-30] MEDS: FOLIC ACID 1 MG TABLET PO (09:39)
[2024-03-30] MEDS: TAMSULOSIN HCL 0.4 MG CAPSULE PO (09:39)
[2024-03-30] MEDS: GABAPENTIN 100 MG CAPSULE 200 MG PO (09:39)
[2024-03-30] MEDS: POTASSIUM CHLORIDE 10 MEQ CAPSULE ER 20 MEQ PO (09:40)
[2024-03-30] MEDS: DULOXETINE 30 MG CAPSULE DR 60 MG PO (09:40)
[2024-03-30] MEDS: FINASTERIDE 5 MG TABLET PO (09:41)
[2024-03-30] MEDS: FUROSEMIDE 40 MG TABLET PO (09:41)
[2024-03-30] MEDS: OMEPRAZOLE 20 MG CAPSULE DR PO (09:45)
[2024-03-30] MEDS: SPIRONOLACTONE 25 MG TABLET PO (09:45)
[2024-03-30] MEDS: LEVOTHYROXINE 100 MCG TABLET PO (09:45)
[2024-03-30] MEDS: INSULIN GLARGINE,HUM.REC.ANLOG 100 UNIT/ML INSULN.PEN 40 UNIT SUBCUT (09:46)
[2024-03-30] MEDS: SODIUM CHLORIDE 0.9 % (FLUSH) 10 ML SYRINGE 5 ML IVF (09:48)
[2024-03-30 11:40] VITALS: BP 137/71; PULSE 74; RESP 20; TEMP 36.5; O2SAT 94
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
--- NOTE | 2024-03-30 14:03 | PC.NURSE ---
Discharged: Pt aroused by name and oriented to self and birthday. IV intact. Nurse to nurse given to [facility]. Transferred via non emergent EMS at 1400. Discharge papers sent over.
== END 2024-03-30 14:00 | disposition short-term general hospital (02) | DRG 71 ==
LOC: ED 12:28 → MEDSURG 15:02
PROVIDERS: Family Medicine; Physician Assistant; Admitting Provider Family Medicine; Emergency Provider Family Medicine; PCP Family Medicine; Visit Provider Family Medicine
DX: G93.40 Encephalopathy, unspecified (principal); E87.1 Hypo-osmolality and hyponatremia; I13.0 Hypertensive heart and chronic kidney disease with heart failure and stage 1 through stage 4 chronic kidney disease, or unspecified chronic kidney disease; I67.82 Cerebral ischemia; G93.1 Anoxic brain damage, not elsewhere classified; R56.9 Unspecified convulsions; I50.9 Heart failure, unspecified; N18.32 Chronic kidney disease, stage 3b; E11.22 Type 2 diabetes mellitus with diabetic chronic kidney disease; E11.65 Type 2 diabetes mellitus with hyperglycemia; Z79.84 Long term (current) use of oral hypoglycemic drugs; Z79.4 Long term (current) use of insulin; Z91.81 History of falling; Z87.820 Personal history of traumatic brain injury; I48.0 Paroxysmal atrial fibrillation; Z86.74 Personal history of sudden cardiac arrest; I87.2 Venous insufficiency (chronic) (peripheral); E66.01 Morbid (severe) obesity due to excess calories; Z68.33 Body mass index [BMI] 33.0-33.9, adult; I25.10 Atherosclerotic heart disease of native coronary artery without angina pectoris; G47.33 Obstructive sleep apnea (adult) (pediatric); E11.40 Type 2 diabetes mellitus with diabetic neuropathy, unspecified; E11.621 Type 2 diabetes mellitus with foot ulcer; L97.519 Non-pressure chronic ulcer of other part of right foot with unspecified severity; F10.21 Alcohol dependence, in remission; R50.9 Fever, unspecified; R13.10 Dysphagia, unspecified; R29.810 Facial weakness; E11.649 Type 2 diabetes mellitus with hypoglycemia without coma; I35.0 Nonrheumatic aortic (valve) stenosis; E03.9 Hypothyroidism, unspecified; I25.2 Old myocardial infarction; R51.9 Headache, unspecified; A46 Erysipelas; N40.0 Benign prostatic hyperplasia without lower urinary tract symptoms; E78.5 Hyperlipidemia, unspecified
CPT/HCPCS: 36415; 51798; 70450; 71045; 71260; 80048; 80053; 80076; 81001; 82945; 82962; 83605; 84145; 84157; 84295; 84443; 85025; 85027; 86140; 86789; 87040; 87070; 87205; 87631; 89051; 92526; 92610; 93005; 97110; 97116; 97162; 97166; 97530; 97535; 99284; 99285; A9270; G0378; J1815; J1940; J1953; J2543; J7050; J7131; Q9967

== ENCOUNTER 2024-03-30 13:50 | Outpatient (CLI) | payer MEDICARE, BC, SELFPAY ==
--- OUTSIDE RECORDS SUMMARY | 2024-04-06 23:39 | XMS_ITS | Continuity of Care Document ---
Author Organization [facility] Address [address] [place] [address] Phone Care Team Providers Care Lace Machine Operator Name Role Phone Roshni Rousseau DPT Unavailable Unavailable Allergies, Adverse Reactions, Alerts Substance Reaction Status Criticality Penicillins Active No Information WARNIN allergy(ies) could not be collected because the type is not supported. Please contact the source practice for further details. Medications Medication Instructions Dosage Effective Dates (start - stop) Status Comments amlodipine 5 mg tablet take 1 tablet [...] and evening meals 500 MG - Active metoprolol succinate ER 25 mg tablet,extended release 24 hr take 3 tablet by oral route 2 times every day 75 MG - Active omeprazole 20 mg capsule,delayed release take 1 capsule by oral route every day 30 minutes to 1 hour before a meal 20 MG - Active rosuvastatin 20 mg tablet take 1 tablet by oral route every day 20 MG - Active tamsulosin 0.4 mg capsule take 1 capsule by oral route every day 1/2 hour following the same meal each day 0.4 MG - Active triamterene 37.5 mg-hydrochlorothiazid e 25 mg tablet take 1 tablet by oral route every day 1.00 tablet - Active Procedures Procedure Date PT Eval - High Complexity Neuromuscular Re-education Psychiatric Diagnostic Evaluation Teleph one Only Est Pt Eval New Pt Eval 45 Min Advance Directives Directive Yes / No Effective Date File Name No Information Encounters Encounter Description Practice Location Reason(s) For Visit Diagnoses Date Provider Providers Copied on Encounter [facility], [address], [place], [place], [id number], [place] tel:[phone] [facility] [facility] No Information 3 Soham Barakat. [address], [address], [place], [address], [place]. tel:[phone] [facility], [address], [place], [place], [id number], [place] tel:[phone] [facility] Spinal stenosis, lumbar region with neurogenic claudicationRadic ulopathy, lumbar regionType 2 diabetes mellitus with diabetic neuropathy, unsp 3 Soham Barakat. [address], [address], [place], [address], [place]. tel:[phone] Referring Provider: Laron Basurto, [address], [place], [address] . tel:[phone] Psychiatric Diagnostic Evaluation Telephone Only [facility], [address], [place], [place], [id number], [place] tel:[phone] [facility] Pain disorder with related psychological factors 3 Selwyn Pabon. [address], [place], [address], [place]. tel:[phone] Referring Provider: Laron Basurto, [address], [place], [address] . tel:[phone] [facility], [address], [place], [place], [id number], [place] tel:[phone] [facility] Spinal stenosis, lumbar region with neurogenic claudicationRadic ulopathy, lumbar region 3 Foster Sam. [address], [place], [address], [place]. tel:[phone] Referring Provider: Laron Basurto, [address], [place], [address] . tel:[phone] Est Pt [facility], [address], [place], [place], [id number], [place] tel:[phone] [facility] back pain (chief complaint) Spinal stenosis, lumbar region with neurogenic claudicationType 2 diabetes mellitus w/ diabetic neuropathyRadicul opathy, lumbar regionBody mass index (BMI) 40.0-44.9, adult 3 [place] [facility]. [address], [place], [address], [place]. tel:[phone] Referring Provider: Laron Basurto, [address], [place], [address] . tel:[phone] New Pt Eval 45 Min [facility], [facility], [address], [place], [place], [id number], [place] tel:[phone] [facility] back pain (chief complaint) Body mass index (BMI) 40.0-44.9, adultSpinal stenosis, lumbar region with neurogenic claudicationRadic ulopathy, lumbar regionType 2 diabetes mellitus w/ diabetic neuropathy Dec- 3 Foster Sam. [address], [place], [address], [place]. tel:[phone] Referring Provider: Laron Basurto, [address], [place], [address] . tel:[phone] Family History Family Member Type Diagnosis Age At Onset No Information Payers Payer name Insurance type Covered alliance party ID Bernice galicia(s) Medicare Part B AKUA [id number] [employer] [id number] Social History Type Description Quantity Date Captured [...] region -Requested medical r ecords from [facility] ([place]Order MRI of the lumbar spine at [facility] [...]
--- OUTSIDE RECORDS SUMMARY | 2024-04-06 23:40 | XMS_ITS ---
Author Organization [facility] Address [address] [place] [address] Care Team Providers Care Shellfish Processing Laborer Name Role Phone Unavailable Unavailable Unavailable Surgery Details Not on file Complications Check Surgery Details section. Procedure Estimated Blood Loss Check Surgery Details section. Procedure Findings Check Surgery Details section. Procedure Specimens Taken Check Surgery Details section.
--- OUTSIDE RECORDS SUMMARY | 2024-04-06 23:40 | XMS_ITS | Encounter Summary ---
Author Organization [facility] Address [address] [place] [address] Care Team Providers Care Lube Worker Name Role Phone Shanae Ugarte APRN, C.N.P. Primary Care Provide r Reason for Visit * Reason Comments Fall Encounter Details Date Type Department Care Team (Late st Contact Info) Description 03/08/2024 6:24 PM CDT - 03/08/2024 8:42 PM CDT Emergency [facility] [address] [place] [address] Jaden Serna, P.A.-C. [address] [place] [address] Laceration Forehead Initial (Primary Dx); [...] Body Mass Index 37.89 05/31/2023 2:47 PM METAL CANS SUPERVISOR documented in this encounter Discharge Instructions * Discharge Instructions* Jaden Serna P.A.-C. - 03/08/2024 8:31 PM CDT Sutures in your forehead can come out in 5 days Sutures in your ankle can come out in 7-10 days * Attachments The following attachments cannot be sent through Care Everywhere. * Laceration Care Adult Hybi-fw-Qcxu (Indonesian) documented in this encounter Medications at Time [...] tablet 3 05/12/2023 clotrimazole (LOTRIMIN) 1 % creamIndications:[place] titis Seborrheic Apply 1 Application topically 2 [...] by mouth. 07/06/2023 triamcinolone (KENALOG) 0.1 % creamIndications:[place] titis Seborrheic Apply 1 Application topically 2 [...] by: Patient REVIEW OF SYSTEMS As per [facility] OBJECTIVE Initial Vitals Temperature 03/08/241826 36.7 [...] ?? Care team members present 1. Jaden Senra P.A.-C. PROCEDURE DETAILS Repair type: ??Simple Limited [...] Cervical spine straightening, trace likely chronic/degenerative C4- K7shncgmcvuduhccf. Vertebral body heights, disc spaces, dens and facetsintact. Chronic traumatic deformity C6 spinous process tip. Advanced C2-C3disc degeneration and inferior C2 endplate sclerotic permeation. Other moderate multilevel multifactorialspondylotic change. Suspect moderate/marked canal stenosis at C3-B1htszurzq to spondylosis. Negative for prevertebral edema. Clear lung apices. IMPRESSION: Negative for acute cervical spine fracture. Jaden Serna P.A.-C. Mayte CT PROCEDUR ES * CT Head without IV Contrast (03/08/2024 7:11 PM CDT) Anatomical Region Laterality Modality Head, Neuroradiology [facility] , Neuroradiology [facility], Neuroradiology [facility] N/A Computed Tomography 03/08/2024 7:04 [...] Given 03/08/2024 8:08 PM CDT 1 Application lzweusnva-jglyzlaid-buotbhpz ne 4-0.05-0.5 % gel 1 mL (L.E.T. [...] R.N.) PRN Medication Order 03/06/2024 03/07/2024 03/08/2024 otkndifin-zbhxlomqd-rfxrvqvbhy 4-0.05-0.5 % gel 1 mL (L.E.T. Gel) 1 mL, topical, As needed, mild pain or score 1-3 of 10, Starting on Mon03/08/24 at 1952 documented in this encounter Additional Health Concerns Assessment Noted Time PHQ-9 Depression Total Score: 5 10/11/19 24 9:23 PM CDT documented as of this encounter Care Teams Lube Worker Relationship Specialty Start Date End Date Shanae Ugarte APRN, C.N.P. [address] [place] [address] PCP - General 11/24/23 documented as of this encounter
--- OUTSIDE RECORDS SUMMARY | 2024-04-06 23:40 | XMS_ITS | Encounter Summary ---
Author Organization [facility] Address [address] [place] [address] Care Team Providers Care Home Performance Laborer Name Role Phone Soham James MD Primary Care Provider [phone] Encounter Details Date Type Department Care Team (Late st Contact Info) Description 2023 Telephone [facility] Podiatry [address] [facility] [address] [place] [address] Piper Castanon, DPMikki, Podiatry/Foot and Ankle Surgery [address] [place], [place] [id number] Social History Tobacco Use Types Packs/Day Years [...] referral we received from Dr. Soham James ([facility]) via fax this morning. Scheduled patient to see Dr. Castanon on June 20 in [place]. Patient requested the building address be sent to him via mail, so a letter was sent out. Patient was appreciative of the call. Dionte Rodrigez, Visit Machine Designer ATION AND OUTREACH COORDINATOR documented in this encounter Plan of Treatment Not on file documented as of this encounter Visit Diagnoses Not on filedocumented in this encounter Care Teams Home Performance Laborer Relationship Specialty Start Date End Date Soham James MD [facility] [address] [place] [address] PCP - General Family Practice 07/25/12 documented as of this encounter
--- OUTSIDE RECORDS SUMMARY | 2024-04-06 23:40 | XMS_ITS | Referral Summary ---
Author Organization [facility] Address [address] [place] [address] Care Team Providers Care Spindle Sander Name Role Phone Shanae Ugarte APRN, C.N.P. Primary Care Provide r Source Comments Patient records contain information from all sites at [facility]. For routine questions regarding patient records, call [phone] during business hours, M-F 8:00 AM - 5:00 PM Central Time. Record requests for emergency care only can be directed to [phone] at any time.[facility] Encounters Date Type Department Care Team Description 03/26/2024 Clinical Communication Department of Family Medicine, [facility], in [address] [phone] Shanae Ugarte APRN, C.N.P. Free Style Jesus 03/08/2024 6:24 PM CDT - 03/08/2024 8:42 PM CDT Emergency [facility] [address] [place] [phone] Jaden Serna, P.A.-C. Laceration Forehead Initial (Primary Dx); Laceration Ankle Without Foreign Body Initial Right Discharge Disposition: Home or Self Care 02/26/2024 Refill Department of Family Medicine, [facility], in [address] [phone] Shanae Ugarte APRN, C.N.P. Med Refill 01/16/2024 Orders Only [facility] Shanae Ugarte APRN, C.N.P. 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..] daily. 90 tablet 3 08/17/2023 Active Basaglar RickiPen U-100 Insulin 100 unit/mL (3 mL) injectionIndication [...] 810 capsule 3 10/11/2023 5 Active DME CPAPIndications:Golf Course Superintendent ea Sleep Obstructive DME Order 1 each [...] - MODE RNA (12 YEARS AND OLDER) [id number] 05/12/2023 SARS-COV-2 (COVID-19) - MODERNA(Discontinued) SARS-COV-2 (COVID-19) [...] 177 cm (5' 9.69) 05/31/2023 2:47 PM MAINTENANCE AND UTILITIES SUPERVISOR Body Mass Index 37.89 05/31/2023 2:47 PM MAINTENANCE AND UTILITIES SUPERVISOR Plan of Treatment Not on file Medical Devices Implanted Type Area Tank Truck Mechanic Device Identifier Shelf Expiration Date Model / [...] ALBUMIN, RANDOM, U Routine 05/31/2023 2:26 PM MAINTENANCE AND UTILITIES SUPERVISOR Diabetes Mellitus Type 2 With Diabetic Neuropathy Hyperglycemic (HCC) BASIC METABOLIC PANEL, S/P Routine 05/31/2023 2:22 PM MAINTENANCE AND UTILITIES SUPERVISOR Monitoring For Therapeutic Drug Therapy THYROID-STIMULATI [...] consolidative process, pleural effusion or appreciablepneumothorax. Jaden Sharma-CJosh IMG DIAGNOSTIC IMAGING PROCEDURES * CT Cervical [...] Cervical spine straightening, trace likely chronic/degenerative C4- J6tjhihjlcufssnoa. Vertebral body heights, disc spaces, dens and facetsintact. Chronic traumatic deformity C6 spinous process tip. Advanced C2-C3disc degeneration and inferior C2 endplate sclerotic permeation. Other moderate multilevel multifactorialspondylotic change. Suspect moderate/marked canal stenosis at C3-Y1lvspxxkj to spondylosis. Negative for prevertebral edema. Clear lung apices. IMPRESSION: Negative for acute cervical spine fracture. Jaden Serna P.A.-C. Mayte CT PROCEDUR ES * CT Head without IV Contrast (03/08/2024 7:11 PM CDT) Anatomical Region Laterality Modality Head, Neuroradiology [facility] , [facility], Neuroradiology [facility] N/A Computed Tomography 03/08/2024 7:04 PM CDT [...] P.A.-C. IMG CT PROCEDUR ES * (ABNORMAL) Albumin, Random, Urine (05/31/2023 2:26 PM MAINTENANCE AND UTILITIES SUPERVISOR) Microalbumin 53.8 mg/L 05/31/2023 2:48 PM MAINTENANCE AND UTILITIES SUPERVISOR CNFL Creatinine 115 mg/dL 05/31/2023 2:48 PM MAINTENANCE AND UTILITIES SUPERVISOR CNFL Albumin/Creatinin e Ratio 47(H) <17 mg/g 05/31/2023 2:48 PM MAINTENANCE AND UTILITIES SUPERVISOR CNFL Urine (Urine, Midstream) 05/31/2023 2:26 PM MAINTENANCE AND UTILITIES SUPERVISOR 05/31/2023 2:26 PM MAINTENANCE AND UTILITIES SUPERVISOR Soham James M.D., Ph.D. LAB URINE ORDER SREEKANTH [facility] [address] [place] [id number], [facility] in [address] [address] * S-TSH (Thyroid-Stimulating Hormone - Sensitive) (10/25/2021 10:43 AM CDT) TSH, Sensitive 1.8 0.3 - 4.2 mIU/L 10/25/2021 11:15 AM CDT CNFL Blood (Blood, Venous) 10/25/2021 10:43 AM CDT 10/25/2021 10:47 AM CDT Soham James M.D., Ph.D. LAB BLOOD ADD-O N [facility] [address] [place] [address], [facility] CNFL [facility] in [address] [address] * US Aorta AAA Screening (05/05/2020 10:41 [...] S Nonreactive Nonreactive 10/09/2017 10:35 AM CDT [facility] Blood 10/06/2017 2:29 PM CDT 10/06/2017 9:44 PM CDT Narrative [facility] - 10/09/2017 10:35 AM CDT Specimen Information: Specimen ID: [id number] Specimen Type: Blood Specimen Collection Start Date: 10/06/2017 ??2:29 PM Specimen Received Date: 10/06/2017 ??9:44 PM Specimen ID: [id number] Specimen Type: Blood Specimen Collection Start Date: 10/06/2017 ??2:29 PM Specimen Received Date: 10/06/2017 ??9:44 PM Soham James M.D., Ph.D. LAB MICROBIOLOG Y - BLOOD ORDERABLES [facility] [address] [place] [address] from Last 3 Months or Most Recently Relevant to Health Maintenance Care Teams Spindle Sander Relationship Specialty Start Date End Date Shanae Ugarte APRN, C.N.P. [address] [place] [phone] [facility] - General 11/24/23
--- OUTSIDE RECORDS SUMMARY | 2024-04-06 23:40 | XMS_ITS | Clinical Summary ---
Author Organization [facility] Address [address] [place] [address] Care Team Providers Care Direct Mail Marketer Name Role Phone Shanae Ugarte APRN, C.N.P. Primary Care Provide r Source Comments Patient records contain information from all sites at [facility]. For routine questions regarding patient records, call [phone] during business hours, M-F 8:00 AM - 5:00 PM Central Time. 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 Free Style Jesus 03/08/2024 6:24 PM CDT - 03/08/2024 8:42 PM CDT Emergency [place] [facility] [address] [place] [phone] Jaden Serna P.A.Tate. Laceration Forehead Initial (Primary Dx); Laceration Ankle Without Foreign Body Initial Right Discharge Disposition: Home or Self Care 02/26/2024 Refill Department of Family Medicine, [facility], in [address] [phone] Shanae Ugarte APRN, C.N.P. Med Refill 01/16/2024 Orders Only [facility] PCP [facility] Shanae Ugarte APRN, C.N.P. 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) from Last 3 Months Immunizations Name Administration Dates Next Due H1N1 All Forms 08/10/2009 Influenza Split Preservative Free ID 05/15/2012 Influenza TIV (IM) 08/25/2006 Influenza high dose QV(65 years or older) (PF) 1 ,04/20/2020 Influenza, Quadrivalent, Adjuvanted, Preservativ e Free 05/12/2023 Influenza, Seasonal, Injectable 08/25/2006 PCV13 08/18/2008 PPSV23 12/04/2018 SARS-COV-2 (COVID-19) - MODE RNA (12 YEARS AND OLDER) [id number] 05/12/2023 SARS-COV-2 (COVID-19) - MODERNA(Discontinued) SARS-COV-2 (COVID-19) [...] 177 cm (5' 9.69) 05/31/2023 2:47 PM BAKER BISCUIT Body Mass Index 37.89 05/31/2023 2:47 PM BAKER BISCUIT Plan of Treatment Health Maintenance Due Date Last Done Comments Dilated Eye Exam 1945 Zoster Vaccines (1 of 2) 1997 Hepatitis B Vaccines (1 of 3 - Risk 3-dose series) 2007 RSV vaccine - (32-3 6 weeks) or 60+ years (1 - 1-dose 75+ series) 2022 Depression Monitoring (PHQ-9) 02/10/2024 10/11/2023 COVID-19 Vaccine (2023-2 5 season) 2024 05/12/2023, 05/09/2022, 01/30/2022, Additional history exists Influenza Vaccine (#1) 2024 3, 05/12/2023, 05/09/2022, Additional history exists Urine Albumin 05/31/2024 05/31/2023, 0402/2022, 09/15/2020, Additional history exists Visit: Medicare Annual Wellness 06/01/2024 Thyroid Stimulating Hormone (TSH) test for thyroid function 06/19/2024 06/19/2023, 10/25/2021, 09/15/2020, Additional history exists Hemoglobin A1C 06/29/2024 03/30/2024, 04/0 09/2023, 06/16/2023, Additional history exists Diabetic Office Visit with F oot Exam 10/10/2024 10/11/2023, 10/11/2023, 07/12/2023, Additional history exists Office Visit for Blood Press ure Check / Re-check 10/10/2024 10/11/2023 Creatinine Level (Kidney Fun ction Test) 04/01/2025 04/01/2024, 04/01/2024, 03/30/2024, Additional history exists Potassium Level 04/01/2025 04/01/2024, 03/11, 03/30/2024, Additional history exists Sodium Level 04/01/2025 04/01/2024, 03/11, 03/30/2024, Additional history exists DTaP,Tdap,and Td Vaccines (3 [...] FIT Discontinued Medical Devices Implanted Type Area Food Service Representative Device Identifier Shelf Expiration Date Model / [...] ALBUMIN, RANDOM, U Routine 05/31/2023 2:26 PM BAKER BISCUIT Diabetes Mellitus Type 2 With Diabetic Neuropathy Hyperglycemic (HCC) BASIC METABOLIC PANEL, S/P Routine 05/31/2023 2:22 PM BAKER BISCUIT Monitoring For Therapeutic Drug Therapy THYROID-STIMULATI NG [...] (03/08/2024 8:32 PM CDT) Narrative Jaden Serna P.APenelope. - 03/08/2024 8:32 PM CDT Jaden Serna [...] Laterality Modality Cervical Spine, Neuroradiolo gy RST [facility], Neuroradiology [facility], Neuroradiology [facility] N/A Computed Tomography 03/08/2024 [...] Cervical spine straightening, trace likely chronic/degenerative C4- Z4hkmherklhdxsvvx. Vertebral body heights, disc spaces, dens and facetsintact. Chronic traumatic deformity C6 spinous process tip. Advanced C2-C3disc degeneration and inferior C2 endplate sclerotic permeation. Other moderate multilevel multifactorialspondylotic change. Suspect moderate/marked canal stenosis at C3-Y5dzwhnjlv to spondylosis. Negative for prevertebral edema. Clear [...] and small associated contusion. Jaden Serna P.A.-C. IM CT PROCEDUR ES * (ABNORMAL) Albumin, Random, Urine (05/31/2023 2:26 PM BAKER BISCUIT) Microalbumin 53.8 mg/L 05/31/2023 2:48 PM BAKER BISCUIT CNFL Creatinine 115 mg/dL 05/31/2023 2:48 PM BAKER BISCUIT CNFL Albumin/Creatinin e Ratio 47(H) <17 mg/g 05/31/2023 2:48 PM BAKER BISCUIT CNFL Urine (Urine, Midstream) 05/31/2023 2:26 PM BAKER BISCUIT 05/31/2023 2:26 PM BAKER BISCUIT Soham James M.D., Ph.D. LAB URINE ORDER SREEKANTH Performing Organization Address City/[facility]/ZIP Co de Phone Number [address] [address], [place] [address] * S-TSH (Thyroid-Stimulating Hormone - Sensitive) (10/25/2021 10:43 AM CDT) TSH, Sensitive 1.8 0.3 - 4.2 mIU/L 10/25/2021 11:15 AM CDT [facility] Blood (Blood, Venous) 10/25/2021 10:43 AM CDT 10/25/2021 10:47 AM CDT Soham James M.D., Ph.D. LAB BLOOD ADD-O N Performing Organization Address City/[facility]/ZIP Co de Phone Number [facility] [address] [place] [address], [address] [address] * [place] Aorta AAA Screening (05/05/2020 10:41 [...] 10:35 AM CDT Specimen Information: Specimen ID: [id number] Specimen Type: Blood Specimen Collection Start Date: 10/06/2017 ??2:29 PM Specimen Received Date: 10/06/2017 ??9:44 PM Specimen ID: [id number] Specimen Type: Blood Specimen Collection Start Date: 10/06/2017 ??2:29 PM Specimen Received Date: 10/06/2017 ??9:44 PM Soham James M.D., Ph.D. LAB MICROBIOLOG Y - BLOOD ORDERABLES [facility] [address] [place] [address], [facility] from Last 3 Months or Most Recently Relevant to Health Maintenance Care Teams Direct Mail Marketer Relationship Specialty Start Date End Date Shanae Ugarte APRN, C.N.P. [facility] [place] [phone] PCP - General 11/24/23
--- OUTSIDE RECORDS SUMMARY | 2024-04-06 23:40 | XMS_ITS | Clinical Summary ---
Author Organization [employer] [facility] Address [place], [place] [address] Care Team Providers Care Assembler Knife Name Role Phone Hao Drwe MD Unavailable Desiree Black MD Primary Care Provider + Allergies Active Allergy Reactions Criticality Noted Date Comments Esomeprazole Magnesium Nausea Only 11/12/2012 INCREASED ACID Penicillins Hives 04/15/2014 Hpuoanf-Lcr-Izc Reductase Inhibitors Nausea Only,Myalgia 04/15/2014 Medications Medication Sig Dispensed Refills Start Date End Date Status omeprazole (PRILOSEC) 20 mg Delayed-Release capsule Take 20 mg by mouth once daily before a meal. 06/08/20 18 Suspended CPAPIndications:C entral sleep apnea,TING (obstructive sleep apnea) CPAP machine for home use at pressure: 12 cm, full face mask x1/3month with a full face cushion x1/mo; Length of Need: 99 months; Frequency of use: Daily 1 Device 10 10/30/19 21 Suspended Additional Information acetaminophen (TYLENOL) 325 mg tablet Take 650 mg by mouth every 6 hours if needed for Headache or Pain. Max acetaminophen dose: 4000mg in 24 hrs. Suspended amLODIPine (NORVASC) 2.5 mg tabletIndications :HTN (hypertension) Take 1 Tablet (2.5 mg) by mouth once daily. 30 Tablet 07/07/20 23 024 Discontinued( Pharmacist change per medication history (E-cancel not sent)) camphor-menthol, 0.5%-0.5%, (SARNA ANTI-ITCH) lotionIndications :Pruritus Apply topically to affected area(s) three times daily. 07/06/20 Suspended Additional Information diclofenac topical (VOLTAREN) 1 % gelIndications:Bi lateral thumb pain Apply 2 g topically to affected area(s) four times daily. 07/06/20 Suspended Additional Information DULoxetine (CYMBALTA) 60 mg Delayed-release capsuleIndication s:Pain Take 1 Capsule (60 mg) by mouth once daily. 30 Capsule 07/06/20 Suspended Additional Information finasteride (PROSCAR) 5 mg tabletIndications :Benign prostatic hyperplasia, unspecified whether lower urinary tract symptoms present Take 1 Tablet (5 mg) by mouth every morning. 30 Tablet 07/06/20 Suspended Additional Information folic acid 1 mg tabletIndications :Folate deficiency Take 1 Tablet (1 mg) by mouth once daily. 30 Tablet 07/06/20 Suspended Additional Information gabapentin (NEURONTIN) 100 mg capsuleIndication s:Pain Take 1 Capsule (100 mg) by mouth three times daily. 90 Capsule 07/06/20 024 Discontinued( Pharmacist change per medication history (E-cancel not sent)) levothyroxine (LevoxyL) 100 mcg tabletIndications :Acquired hypothyroidism Take 1 Tablet (100 mcg) by mouth before breakfast. 30 Tablet 07/06/20 Suspended Additional Information tamsulosin (FLOMAX) 0.4 mg capsuleIndication s:Benign prostatic hyperplasia, unspecified whether lower urinary tract symptoms present Take 1 Capsule (0.4 mg) by mouth once daily after a meal. 30 Capsule 07/06/20 Suspended Additional Information thiamine (VITAMIN B1) 100 mg tabletIndications :Alcohol abuse Take 1 Tablet (100 mg) by mouth once daily. 30 Tablet 07/06/20 Suspended Additional Information Ziyad Rose U-100 Insulin 100 unit/mL (3 mL) penIndications:Ty pe 2 diabetes mellitus with diabetic neuropathy, with long-term current use of insulin (HC) Inject 55 units subcutaneous two times daily. Product desired: BASAGLAR KWIKPEN 07/06/20 Suspended Additional Information Patient taking differently: 40 unitSubcutaneousQ AM, Product desired: ZIYAD ROSE, Informant: Other Medical Records, Reported on 03/31/2024 insulin aspart, U-100, (NovoLOG Flexpen U-100 Insulin) 100 unit/mL (3 mL) penIndications:Ty pe 2 diabetes mellitus with diabetic neuropathy, with long-term current use of insulin (HC) Inject 16 units subcutaneous three times daily before meals. 07/06/20 Suspended Additional Information Patient taking differently: 5 unitSubcutaneous THREE TIMES DAILY BEFORE MEALS, Informant: Other Medical Records, Reported on 03/31/2024 CaneIndications:A cute CVA (cerebrovascular accident) (HC) Single Point Cane for home use. For 99 weeks. 1 Each 07/06/20 Suspended Additional Information rosuvastatin (CRESTOR) 20 mg tabletIndications :ST elevation myocardial infarction involving left anterior descending (LAD) coronary artery (HC) Take 1 Tablet (20 mg) by mouth at bedtime. 90 Tablet 07/31/19 Suspended Additional Information nitroglycerin (NITROSTAT) 0.4 mg sublingual tabletIndications :Ischemic chest pain (HC) Place 1 Tablet (0.4 mg) under the tongue every 5 minutes if needed for Chest Pain (For chest pain x 3 doses.). 25 Tablet 07/31/19 Suspended Additional Information Ozempic 0.25 mg or 0.5 mg (2 mg/3 mL) pen Inject 0.25 mg subcutaneous once weekly. Inject 0.25 mg subcutaneous once weekly for 2 weeks, then go up to 0.5 mg thereafter. 06/02/20 Suspended carvediloL (COREG) 6.25 mg tabletIndications :HTN (hypertension) Take 1 Tablet (6.25 mg) by mouth two times daily with meals. 180 Tablet 07/31/19 Suspended Additional Information Patient taking differently:6.25 mg OralONCE DAILY BEFORE A MEAL, Informant: Other Medical Records, Reported on 03/31/2024 clopidogreL (PLAVIX) 75 mg tabletIndications :ASCVD (arteriosclerotic cardiovascular disease) Take 1 Tablet (75 mg) by mouth once daily. 90 Tablet 07/31/19 Suspended Additional Information spironolactone (ALDACTONE) 25 mg tabletIndications :Chronic systolic heart failure (HC),Stage 3b chronic kidney disease (CKD) (HC) Take 1 Tablet (25 mg) by mouth every morning. 90 Tablet 07/31/19 Suspended Additional Information rivaroxaban (Xarelto) 20 mg tabletIndications :Paroxysmal atrial fibrillation (HC) Take 1 Tablet (20 mg) by mouth once daily with evening meal. 90 Tablet 3 08/28/19 24 024 Discontinued( Pharmacist change per medication history (E-cancel not sent)) metFORMIN (GLUCOPHAGE) 500 mg tablet Take 2 Tablets by mouth two times daily. Suspended furosemide (LASIX) 40 mg tabletIndications :CARLENE (acute kidney injury) (HC),Chronic systolic heart failure (HC) Take 1 Tablet (40 mg) by mouth once daily in the morning. 90 Tablet 3 02/06/20 24 Suspended Additional Information potassium chloride (KLOR-CON M10) 10 mEq extended-release tablet (part/cryst)Indic ations:Chronic systolic heart failure (HC) Take 2 Tablets (20 mEq) by mouth once daily with a meal. 180 Tablet 3 02/06/20 24 Suspended Additional Information Patient taking differently:20 mEq OralTWICE DAILY WITH MEALS, Informant: Other Medical Records, Reported on 03/31/2024 gabapentin (NEURONTIN) 100 mg capsule Take 200 mg by mouth two times daily. Suspended levETIRAcetam (Keppra) 500 mg tablet Take 500 mg by mouth two times daily. Suspended Active Problems Problem Noted Date Diagnosed Date Cerebrovascular accident (CVA) of basal ganglia 03/31/2024 Acute encephalopathy 03/30/2024 DMII (diabetes mellitus, type 2) 03/30/2024 Bilateral thumb pain 07/01/2023 Anoxic Brain injury [...] 05/05/2015 Hyperlipidemia 05/05/2015 CAD (coronary artery disease), manzanita coronary a rtery 10/30/2014 Systolic murmur 09/29/2014 [...] Encounters Date Type Department Care Team Description 04/05/2024 Hospital Encounter 03/30/2024 3:10 PM CDT - Present Hospital Encounter [facility] [address] [place] [address] [facility], Hospitalist [facility] Bhupinder Quiroga MD Potter, Dustin Christopher, MD Cerebrovascular accident (CVA) of basal ganglia (HC) (Primary Dx) 03/18/2024 3:00 PM CDT Ancillary Procedure [facility] [address] [place] [address] 02/12/2024 Telephone [facility] [address] [facility] [address] [place] [id number] Hao Drew MD Results (labs) 02/05/2024 4:40 PM CDT Orders Only [facility] [address] [place] [id number] Lab, Appv Lab 02/05/2024 4:00 PM CDT Office Visit [facility] [address] [place] [address] Hao Drew MD Concerns (Paitent denies chest pain, shortness of breath /Patient states he has been having some dizziness ) 02/05/2024 Travel from Last 3 Months Immunizations Name [...] Sign Reading Time Taken Comments Blood Pressure 137/63 04/06/2024 11:22 PM CDT Pulse 60 04/06/2024 11:36 PM CDT Temperature 36.5 ??C (97.7 ??F) 04/06/2024 4:05 PM CD T Respiratory Rate 16 04/06/2024 11:2 2 PM CDT Oxygen Saturation 96% 04/06/2024 11: 22 PM CDT Inhaled Oxygen Concentration - - Weight 114.6 kg (252 lb 9.6 oz) 02/05/2024 4:04 PM CDT Height 180.3 cm (5' 11) 02/05/2024 4:04 PM CDT Body Mass Index 35.23 02/05/2024 4:04 PM CDT Plan of Treatment Upcoming Encounters Date Type Department Care Team (Late st Contact Info) Description 04/07/2024 Hospital Encounter [facility] [address] [place] [address] Arlyn Scott MD [address] [facility] [address] [place] [address] 05/20/2024 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 Office Visit [facility] [address] [facility] [address] [facility] [address] [place] [address] Mariaelena Vanegas, MOSES [address] [facility] [address] [facility] [address] [place], [place] [id number] Health Maintenance Due Date Last Done Comments Depression screening for age 12+ 1959 Hepatitis C screening for ag e 18-79 1965 Zoster (shingles) series for age 50+ (1 of 2) 1997 Medicare Wellness for age 65+ 2012 Tetanus booster 02/24/2020 02/23/2010 RSV vaccine for adults or (1 - 1-dose 75+ series) 2022 COVID-19 vaccine series ( season) 2024 05/09/2022, 01/30/2022, 06/07/2021, Additional history exists Influenza for age 65+ 03/10/2024 05/24/2023 , 04/10/2018, 04/30/2014, Additional history exists BMI (ht and wt on same day) for age 18+ 02/04/2025 02/05/2024, 07/31/2023, 11/18/2021, Additional history exists Tdap Completed 02/23/2010 Pneumococcal series for age 65+ Completed 9, 08/18/2008 Medical Devices Implanted Type Area Account Management Assistant Device Identifier Shelf Expiration Date Model / Serial / Lot Cmnt Bone Simplex Hv Gentamicin - [id number] Implanted:Qty: 2 on 04/28/2014 by Amrik Falcon MD at [facility] Left: Knee [employer] 11/06/2014 6195-1-001 # / / [id number] Patella 37u26vl Triathlon Asymmetric X3 - [id number] Implanted:Qty: 1 on 04/28/2014 by Amrik Falcon MD at [facility] Left: Knee [employer] 02/06/2019 5551-G-350 # / / [id number] Fem Lt Sz7 Triathlon Post Stbznon Pors - [id number] Implanted:Qty: 1 on 04/28/2014 by Amrik Falcon MD at [facility] Left: Knee [employer] 02/06/2018 5515-F-701 # / / [id number] Baseplate Tib Sz6 Triathlon Pe - [id number] Implanted:Qty: 1 on 04/28/2014 by Amrik Falocn MD at [facility] Left: Knee [employer] 12/07/2018 5521-B-600 # / / [id number] Insert Knee Sz6 11mm Triathlonpost Stbz X3 - [id number] Implanted:Qty: 1 on 04/28/2014 by Amrik Falcon MD at [facility] Left: Knee [employer] 02/06/2019 5532-G-611 # / / [id number] Triathlon X3 Asymmetric Patella D12u29ud - [id number] Implanted:Qty: 1 on 08/14/2019 by Amrik Falcon MD at [facility] Right: Knee [employer] 02/19/2024 5551-G-381 -E / / [id number] Triathlon X3 Tibial Bearing Insert Cs Valery 5 Typ Cs Thkns 11mm - [id number] Implanted:Qty: 1 on 08/14/2019 by Amrik Falcon MD at [facility] Right: Knee [employer] 03/24/2024 5531-G-511 -E / / [id number] Cmnt Bone Simplex Hv - [id number] Implanted:Qty: 1 on 08/14/2019 by Amrik Falcon MD at [facility] Right: Knee [employer] 12/07/2020 6194-1-001 # / / [id number] Cmnt Bone Simplex Hv Gentamicin - [id number] Implanted:Qty: 1 on 08/14/2019 by Amrik Falcon MD at [facility] Right: Knee [employer] 06/08/2020 6195-1-001 # / / [id number] Fem Rt Sz6 Triathlon Cruc Ret Co Cr - [id number] Implanted:Qty: 1 on 08/14/2019 by Amrik Falcon MD at [facility] Right: Knee [employer] 01/11/2024 5510-F-602 # / / [id number] Baseplate Tib Sz5 Triathlon Pe - [id number] Implanted:Qty: 1 on 08/14/2019 by Amrik Falcon MD at [facility] Right: Knee [employer] 04/17/2024 5521-B-500 # / / [id number] Procedures The patient is currently admitted. The information in this section might not be complete until the patient is discharged. Procedure Name Priority Date/Time Associated Diagnosis Comments GLUCOSE METER Timed 04/06/2024 9:15 PM CDT GLUCOSE METER Timed 04/06/2024 4:36 PM CDT GLUCOSE METER Timed 04/06/2024 12:39 PM CDT SCAN-CARDIAC STRIP 04/06/2024 9: 11 AM CDT GLUCOSE METER Timed 04/06/2024 8:39 AM CDT GLUCOSE METER Timed 04/06/2024 8:33 AM CDT PLATELET COUNT Early AM 04/06/2024 6:52 AM CDT GLUCOSE METER Timed 04/05/2024 9:08 PM CDT GLUCOSE METER Timed 04/05/2024 6:08 PM CDT MR ANGIO HEAD BRAIN WO Routine 4:46 PM CDT MR HEAD BRAIN WWO STAT 04/05/2024 4:4 2 PM CDT GLUCOSE METER Timed 04/05/2024 11:31 AM CDT SCAN-CARDIAC STRIP 04/05/2024 9: 21 AM CDT SCAN-CARDIAC STRIP 04/05/2024 9: 21 AM CDT GLUCOSE METER Timed 04/05/2024 7:56 AM CDT GLUCOSE METER Timed 04/05/2024 2:19 AM CDT GLUCOSE METER Timed 04/04/2024 10:40 PM CDT GLUCOSE METER Timed 04/04/2024 8:42 PM CDT GLUCOSE METER Timed 04/04/2024 5:53 PM CDT GLUCOSE METER Timed 04/04/2024 12:04 PM CDT SCAN-CARDIAC STRIP 04/04/2024 8: 25 AM CDT GLUCOSE METER Timed 04/04/2024 7:46 AM CDT GLUCOSE METER Timed 04/03/2024 9:18 PM CDT SCAN-CARDIAC STRIP 04/03/2024 7: 47 PM CDT GLUCOSE METER Timed 04/03/2024 4:59 PM CDT SCAN-CARDIAC STRIP 04/03/2024 3: 34 PM CDT GLUCOSE METER Timed 04/03/2024 11:45 AM CDT EKG 12 LEAD STAT 04/03/2024 10:47 AM CDT SCAN-CARDIAC STRIP 04/03/2024 8: 48 AM CDT GLUCOSE METER Timed 04/03/2024 8:20 AM CDT CREATININE Early AM 04/03/2024 7:30 AM CDT [place] VIRUS ANTIBODY BLOOD Early AM 04/03/2024 7:29 AM CDT LYME SCREEN W/REFLEX Early AM 04/03/2024 7:29 AM CDT PLATELET COUNT Early AM 04/03/2024 7:29 AM CDT GLUCOSE METER Timed 04/02/2024 9:57 PM CDT GLUCOSE METER Timed 04/02/2024 6:57 PM CDT GLUCOSE METER Timed 04/02/2024 5:34 PM CDT PATH NON RETAIL SHIFT SUPERVISOR CYTOLOGY Today 04/02/2024 3:08 PM CDT VDRL,CSF Today 04/02/2024 3:08 PM CDT [facility] 230 Today 04/02/2024 3:08 PM CDT LYME (B BURGDORFERI) PCR BLD OR CSF Add On 04/02/2024 3:08 PM CDT SPINAL FLUID CULT, STAIN Today 04/02/2024 3:08 PM CDT MENINGITIS/ENCEPHALITI S PATHOGEN PANEL, MULTIPLEX PCR (CSF) Today 04/02/2024 3:08 PM CDT PROTEIN CSF,TOTAL Today 04/02/2024 3:0 8 PM CDT GLUCOSE,CSF Today 04/02/2024 3:08 PM CDT CSF CELL COUNT/DIFF Today 04/02/2024 3 :08 PM CDT XR LUMBAR PUNCTURE DIAGNOSTIC Routine 04/02/2024 2:54 PM CDT GLUCOSE METER Timed 04/02/2024 12:02 PM CDT XR VIDEO SWALLOW W SPEECH Routine 04/02/2024 11:24 AM CDT CONTINUOUS VIDEO EEG MONITORING Routine 04/02/2024 9:48 AM CDT SCAN-CARDIAC STRIP 04/02/2024 8: 26 AM CDT GLUCOSE METER Timed 04/02/2024 8:22 AM CDT GLUCOSE METER Timed 04/02/2024 12:23 AM CDT GLUCOSE METER Timed 04/01/2024 9:02 PM CDT EKG 12 LEAD GOLDIE 04/01/2024 7:48 PM CDT BASIC METABOLIC PANEL Today 04/01/2024 5:31 PM CDT GLUCOSE METER Timed 04/01/2024 5:06 PM CDT SCAN-CARDIAC STRIP 04/01/2024 4: 31 PM CDT SCAN-CARDIAC STRIP 04/01/2024 4: 31 PM CDT SCAN-CARDIAC STRIP 04/01/2024 4: 24 PM CDT MAGNESIUM GOLDIE 04/01/2024 2:41 PM CDT BASIC METABOLIC PANEL Today 04/01/2024 2:41 PM CDT AMMONIA Today 04/01/2024 2:41 PM CDT GLUCOSE METER Timed 04/01/2024 11:42 AM CDT SCAN CORRESP-LABORATORY RESULTS 04/01/2024 9:20 AM CDT SCAN CORRESP-IMAGING 04/01/2024 9:20 AM CDT SCAN CORRESP-EKG RESULTS 04/01/2024 9:16 AM CDT SCAN-CARDIAC STRIP 04/01/2024 8: 56 AM CDT GLUCOSE METER Timed 04/01/2024 8:05 AM CDT GLUCOSE METER Timed 04/01/2024 3:51 AM CDT GLUCOSE METER Timed 03/31/2024 11:42 PM CDT MR ANGIO HEAD BRAIN WO Routine 11:15 PM CDT GLUCOSE METER Timed 03/31/2024 7:59 PM CDT US CAROTID DUPLEX BILATERAL Routine 03/31/2024 3:31 PM CDT SCAN-CARDIAC STRIP 03/31/2024 10 :58 AM CDT GLUCOSE METER Timed 03/31/2024 4:10 AM CDT GLUCOSE METER Timed 03/31/2024 1:27 AM CDT GLUCOSE METER Timed 03/30/2024 8:56 PM CDT MR HEAD BRAIN WWO Routine 03/30/2024 7:5 7 PM CDT XR CHEST 2 VIEWS PA AND LATERAL Today 03/30/2024 7:28 PM CDT SCAN-CARDIAC STRIP 03/30/2024 6: 30 PM CDT LIPID PANEL GOLDIE 03/30/2024 5:14 PM CDT EXTRA TUBE LIGHT GREEN Today 5:14 PM CDT HEMOGLOBIN A1C GOLDIE 03/30/2024 5:07 PM CDT SEDIMENTATION RATE Today 03/30/2024 5: 07 PM CDT CBC W PLT NO DIFF Today 03/30/2024 5:0 7 PM CDT C-REACTIVE PROTEIN Today 03/30/2024 4: 43 PM CDT HEPATIC FUNCTION PANEL Today 4:43 PM CDT BASIC METABOLIC PANEL Today 03/30/2024 4:43 PM CDT ECHO TTE COMPLETE W CONTRAST Routine 03/18/2024 12:15 PM CDT Heart murmur Fever BASIC METABOLIC PANEL Routine 02/05/2024 4:41 PM CDT Stage 3 chronic kidney disease, unspecified whether stage 3a or 3b CKD (HC) from Last 3 Months Results * (ABNORMAL) GLUCOSE METER (04/06/2024 9:15 PM CDT) Only the most recent of35 resultswithin the time period is included. GLUCOSE METER 379(H) 65 - 100 mg/dL 04/06/2024 9:15 PM CDT [facility] Blood BLOOD SPECIMEN / Unknown 04/06/2024 9:15 PM CDT 04/06/2024 9:15 PM CDT Sandip Norton MD CHEMISTRY [facility] SENDOUT [place]IP [phone] [place] [address] * SCAN-CARDIAC STRIP (04/06/2024 9:11 AM CDT) Scanner OTHER * PLATELET COUNT (04/06/2024 6:52 AM CDT) Only the most recent of2 resultswithin the time period is included. PLATELET COUNT 305 140 - 440 thou/cu mm 04/06/2024 7:40 AM CDT [facility] MPV 9.9 6.5 - 11.0 fL 04/06/2024 7:40 AM CDT [facility] Blood BLOOD SPECIMEN / Unknown Venipuncture / Unknown 04/06/2024 6:52 AM CDT 04/06/2024 7:32 AM CDT Sandip Norton MD HEMATOLOGY [facility] SENDOUT [place]NAL [address] [phone] [place] [address] * MR ANGIO HEAD BRAIN WO (04/05/2024 4:46 PM CDT) Only the most recent of2 resultswithin the time period is included. Anatomical Region Laterality Modality HEAD, BRAIN Magnetic Resonan ce 04/05/2024 4:46 PM CDT Impressions 04/05/2024 5:12 PM CDT HEAD MRI: 1. ??Two small acute to subacute infarcts in the left cerebellum, new from prior. 2. ??Unchanged subacute left basal ganglia/internal capsule infarcts. 3. ??No acute intracranial hemorrhage or pathologic enhancement. HEAD MRA: 1. ??No large vessel occlusion, aneurysm or high flow vascular malformation. 2. ??Unchanged moderate narrowing of the distal left V4 segment. 3. ??Unchanged moderate right P2 stenosis. 4. ??Unchanged moderate to severe stenosis distal left P2 segment. Narrative 04/05/2024 5:12 PM CDT For Patients: As a result of the Cures Act, medical imaging exams and procedure reports are released immediately into your electronic medical record. You may view this report before your referring provider. If you have questions, please contact your health care provider. EXAM: MR HEAD BRAIN WWO, MR ANGIO HEAD BRAIN WO LOCATION: [facility] MEDICAL IMAGING DATE: 04/05/2024 INDICATION: Neuro deficit, acute, stroke suspected COMPARISON: 03/31/24, 03/30/24 (accession [id number]), None. (accession [id number]) CONTRAST: GADOTERATE MEGLUMINE 0.5 MMOL/ML IV SOLN 20 ML SYRINGE: 20mL (accession [id number]), None. (accession [id number]) TECHNIQUE: 1) Routine multiplanar multisequence head MRI without and with intravenous contrast. 2) 3D uhgh-lr-cdwitf head MRA without intravenous contrast. FINDINGS: HEAD MRI: INTRACRANIAL CONTENTS: There are two ??small foci of acute to subacute infarction in the the left cerebellum which are new from the prior exam. Areas of restricted diffusion corresponding to subacute infarcts in the left basal ganglia and internal capsule are unchanged from prior exam. No mass, acute hemorrhage, or extra-axial fluid collections. Patchy and confluent nonspecific T2/FLAIR hyperintensities within the cerebral white matter most consistent with moderate chronic microvascular ischemic change. Mild to moderate generalized cerebral atrophy. No hydrocephalus. Normal position of the cerebellar tonsils. No pathologic enhancement. SELLA: No abnormality accounting for technique. OSSEOUS STRUCTURES/SOFT TISSUES: Normal marrow signal. The major intracranial vascular flow voids are maintained. ORBITS: No abnormality accounting for technique. SINUSES/MASTOIDS: Mild mucosal thickening scattered about the paranasal sinuses. No middle ear or mastoid effusion. HEAD MRA: ANTERIOR CIRCULATION: Scattered mild stenoses are present within the anterior circulation. No severe stenosis/occlusion, aneurysm, or high flow vascular malformation. Standard habematolel of Simpson anatomy. POSTERIOR CIRCULATION: No stenosis/occlusion, aneurysm, or high flow vascular malformation. Moderate narrowing of the distal left vertebral artery just prior to the basilar artery. No focal stenosis in the right vertebral artery or basilar artery. Short segment moderate to severe to narrowing proximal right P2. She was in a moderate to severe narrowing mid left P2. Procedure Note Chayito Menjivar MD - 04/05/2024 For Patients: As a result of the Century Cures Act, medical imagingexams and procedure reports are released immediately into your electronicmedical record. You may view this report before your referring provider.If you have questions, please contact your health care provider. EXAM: MR HEAD BRAIN WWO, MR ANGIO HEAD BRAIN WO LOCATION: [facility] MEDICAL IMAGING DATE: 04/05/2024 INDICATION: Neuro deficit, acute, stroke suspected COMPARISON: 03/31/24, 03/30/24 (accession [id number]), None. ([id number]) CONTRAST: GADOTERATE MEGLUMINE 0.5 MMOL/ML IV SOLN 20 ML SYRINGE: 20mL(accession [id number]), None. (accession [id number]) TECHNIQUE: 1) Routine multiplanar multisequence head MRI without and with intravenouscontrast. 2) 3D oxob-gc-fvvzvy head MRA without intravenous contrast. FINDINGS: HEAD MRI: INTRACRANIAL CONTENTS: There are two small foci of acute to subacuteinfarction in the the left cerebellum which are new from the prior exam.Areas of restricted diffusion corresponding to subacute infarcts in theleft basal ganglia and internal capsule are unchanged from prior exam. [place], acute hemorrhage, or extra-axial fluid collections. Patchy andconfluent nonspecific T2/FLAIR hyperintensities within the cerebral whitematter most consistent with moderate chronic microvascular ischemicchange. Mild to moderate generalized cerebral atrophy. No hydrocephalus.Normal position of the cerebellar tonsils. No pathologic enhancement. SELLA: No abnormality accounting for technique. OSSEOUS STRUCTURES/SOFT TISSUES: Normal marrow signal. The majorintracranial vascular flow voids are maintained. ORBITS: No abnormality accounting for technique. SINUSES/MASTOIDS: Mild mucosal thickening scattered about the paranasalsinuses. No middle ear or mastoid effusion. HEAD MRA: ANTERIOR CIRCULATION: Scattered mild stenoses are present within theanterior circulation. No severe stenosis/occlusion, aneurysm, or high flowvascular malformation. Standard habematolel of Simpson anatomy. POSTERIOR CIRCULATION: No stenosis/occlusion, aneurysm, or high flowvascular malformation. Moderate narrowing of the distal left vertebralartery just prior to the basilar artery. No focal stenosis in the rightvertebral artery or basilar artery. Short segment moderate to severe tonarrowing proximal right P2. She was in a moderate to severe narrowing midleft P2. IMPRESSION: HEAD MRI: 1. Two small acute to subacute infarcts in the left cerebellum, new fromprior. 2. Unchanged subacute left basal ganglia/internal capsule infarcts. 3. No acute intracranial hemorrhage or pathologic enhancement. HEAD MRA: 1. No large vessel occlusion, aneurysm or high flow vascularmalformation. 2. Unchanged moderate narrowing of the distal left V4 segment. 3. Unchanged moderate right P2 stenosis. 4. Unchanged moderate to severe stenosis distal left P2 segment. Mariaelena Vanegas NP MR * MR BRAIN W/WO CONTRAST (04/05/2024 4:42 PM CDT) Only the most recent of2 resultswithin the time period is included. Anatomical Region Laterality Modality BRAIN, HEAD Magnetic Resonan ce 04/05/2024 4:42 PM CDT Impressions 04/05/2024 5:12 PM CDT HEAD MRI: 1. ??Two small acute to subacute infarcts in the left cerebellum, new from prior. 2. ??Unchanged subacute left basal ganglia/internal capsule infarcts. 3. ??No acute intracranial hemorrhage or pathologic enhancement. HEAD MRA: 1. ??No large vessel occlusion, aneurysm or high flow vascular malformation. 2. ??Unchanged moderate narrowing of the distal left V4 segment. 3. ??Unchanged moderate right P2 stenosis. 4. ??Unchanged moderate to severe stenosis distal left P2 segment. Narrative 04/05/2024 5:12 PM CDT For Patients: As a result of the Cures Act, medical imaging exams and procedure reports are released immediately into your electronic medical record. You may view this report before your referring provider. If you have questions, please contact your health care provider. EXAM: MR HEAD BRAIN WWO, MR ANGIO HEAD BRAIN WO LOCATION: [facility] MEDICAL IMAGING DATE: 04/05/2024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 T [facility] CALCIUM 9.0 8.8 - 10.2 mg/dL 04/01/2024 6:12 PM T [facility] BUN 23 8 - 23 mg/dL 04/01/2024 6:12 PM T [facility] CREATININE 1.35(H) 0.70 - 1.20 mg/dL 04/01/2024 6:12 PM [facility] BUN/CREAT RATIO 17 10 - 20 6:12 PM T [facility] eGFR 54(L) >90 mL/min/1.7 3m2 04/01/2024 6:12 PM [facility] Comment:As of 2021, eG FR is calculated by the CKD-EPI creatinine equation without race adjustment. ??eGFR can be influenced by muscle mass, exercise, and diet. ??The reported eGFR is an estimation only and is only applicable if the renal function is stable. Blood BLOOD SPECIMEN / Unknown Venipuncture / Unknown 04/01/2024 5:31 PM CDT 04/01/2024 5:42 PM CDT Sandip Norton MD CHEMISTRY [facility] SENDOUT INTER[address]IP [address] [address] [place] [address] * SCAN-CARDIAC STRIP (04/01/2024 4:31 PM CDT) Scanner OTHER * SCAN-CARDIAC STRIP (04/01/2024 4:31 PM CDT) Scanner OTHER * SCAN-CARDIAC STRIP (04/01/2024 4:24 PM CDT) Scanner OTHER * MAGNESIUM (04/01/2024 2:41 PM CDT) MAGNESIUM 1.8 1.6 - 2.4 mg/dL 04/01/2024 5:34 PM CDT [facility] Blood BLOOD SPECIMEN / Unknown Venipuncture / Unknown 04/01/2024 2:41 PM CDT 04/01/2024 2:48 PM CDT Sandip Norton MD CHEMISTRY [facility] SENDOUT [place] ZIP [phone] [place] [address] * (ABNORMAL) AMMONIA (04/01/2024 2:41 PM CDT) Pathologist [facility] [place] AMMONIA 10(L) 11 - 51 umol/L 04/01/2024 3:08 PM CDT [facility] Blood BLOOD SPECIMEN / Unknown Venipuncture / Unknown 04/01/2024 2:41 PM CDT 04/01/2024 2:48 PM CDT Narrative [facility] - 04/01/2024 3:08 PM CDT 1. ??Sulfasalazine and its metabolite Sulfapyridine at therapeutic concentrations may lead to falsely low results. 2. ??Temozolomide and its metabolite MTIC may lead to falsely elevated results, and its metabolite AIC may lead to falsely low results. Mariaelena Vanegas NP CHEMISTRY Performing Organization Address City/[facility]/ZIP Co de Phone Number [facility] SENDOUT INTER[address]IP [phone] [place] [address] * SCAN CORRESP-LABORATORY RESULTS (04/01/2024 9:20 AM CDT) Narrative 04/01/2024 9:20 AM CDT Ordered by an unspecified provider. Other Clinical Staff OTHER * SCAN CORRESP-IMAGING (04/01/2024 9:20 AM CDT) Anatomical Region Laterality Modality Other Narrative 04/01/2024 9:20 AM CDT Ordered by an unspecified provider. Other Clinical Staff OTHER * SCAN CORRESP-EKG RESULTS (04/01/2024 9:16 AM CDT) Narrative 04/01/2024 9:16 AM CDT Ordered by an unspecified provider. Other Clinical Staff OTHER * SCAN-CARDIAC STRIP (04/01/2024 8:56 AM CDT) Scanner OTHER * US CAROTID DUPLEX BILATERAL (03/31/2024 3:31 PM CDT) Anatomical Region Laterality Modality CAROTID, NECK Ultrasound 03/31/2024 3:31 PM CDT Impressions 03/31/2024 6:42 PM CDT 1. ??Mild plaque formation, velocities consistent with less than 50% stenosis in the right internal carotid artery. 2. ??Moderate amount of calcified plaque formation, velocities consistent with less than 50% stenosis in the left internal carotid artery. 3. ??Flow within the vertebral arteries is antegrade. Narrative 03/31/2024 6:42 PM CDT For Patients: As a result of the 21st Century Cures Act, medical imaging exams and procedure reports are released immediately into your electronic medical record. You may view this report before your referring provider. If you have questions, please contact your health care provider. EXAM: US CAROTID DUPLEX BILATERAL LOCATION: [facility] MEDICAL IMAGING DATE: 03/31/2024 INDICATION: CVA/TIA. Carotid stenosis. COMPARISON: None. TECHNIQUE: Duplex exam performed utilizing 2D quintanilla-scale imaging, Doppler interrogation with color-flow and spectral waveform analysis. The percent diameter stenosis is determined using Updated Recommendations for Carotid Stenosis Interpretation Criteria from [employer] [facility]. FINDINGS: RIGHT: Mild plaque at the bifurcation. The peak systolic velocity in the ICA is less than 180 cm/sec, consistent with less than 50% stenosis. Normal velocities in the ECA. Antegrade flow within the vertebral artery. LEFT: Moderate amount of calcified plaque at the bifurcation. The peak systolic velocity in the ICA is less than 180 cm/sec, consistent with less than 50% stenosis. Normal velocities in the ECA. Antegrade flow within the vertebral artery. VELOCITY CHART: CCA ?? Right: 89/8 cm/s ?? Left: 86/6 cm/s ICA ?? Right: 65/11 cm/s ?? Left: 76/14 cm/s ECA ?? Right: 85/21 cm/s ?? Left: 103/14 cm/s ICA/CCA PSV Ratio ?? Right: 0.7 ?? Left: 0.9 Procedure Note Arnulfo Pinto MD - 03/31/2024 For Patients: As a result of the Century Cures Act, medical imagingexams and procedure reports are released immediately into your electronicmedical record. You may view this report before your referring provider.If you have questions, please contact your health care provider. EXAM: US CAROTID DUPLEX BILATERAL LOCATION: [facility] MEDICAL IMAGING DATE: 03/31/2024 INDICATION: CVA/TIA. Carotid stenosis. COMPARISON: None. TECHNIQUE: Duplex exam performed utilizing 2D quintanilla-scale imaging, Dopplerinterrogation with color-flow and spectral waveform analysis. The percentdiameter stenosis is determined using Updated Recommendations for CarotidStenosis Interpretation Criteria from [facility] Vascular Testing. FINDINGS: RIGHT: Mild plaque at the bifurcation. The peak systolic velocity in theICA is less than 180 cm/sec, consistent with less than 50% stenosis.Normal velocities in the ECA. Antegrade flow within the vertebral artery. LEFT: Moderate amount of calcified plaque at the bifurcation. The peaksystolic velocity in the ICA is less than 180 cm/sec, consistent with lessthan 50% stenosis. Normal velocities in the ECA. Antegrade flow within thevertebral artery. VELOCITY CHART: CCA Right: 89/8 cm/s Left: 86/6 cm/s ICA Right: 65/11 cm/s Left: 76/14 cm/s ECA Right: 85/21 cm/s Left: 103/14 cm/s ICA/CCA PSV Ratio Right: 0.7 Left: 0.9 IMPRESSION: 1. Mild plaque formation, velocities consistent with less than 50%stenosis in the right internal carotid artery. 2. Moderate amount of calcified plaque formation, velocities consistentwith less than 50% stenosis in the left internal carotid artery. 3. Flow within the vertebral arteries is antegrade. Paolo Alicea MD US * SCAN-CARDIAC STRIP (03/31/2024 10:58 AM CDT) Scanner OTHER * XR Chest PA and Lateral (03/30/2024 7:28 PM CDT) Anatomical Region Laterality Modality CHEST, THORAX, Lung, HEART Compu syl Radiography 03/30/2024 7:28 PM CDT Impressions 03/30/2024 7:34 PM CDT Negative chest. Lungs clear. Narrative 03/30/2024 7:34 PM CDT For Patients: As a result of the Cures Act, medical imaging exams and procedure reports are released immediately into your electronic medical record. You may view this report before your referring provider. If you have questions, please contact your health care provider. EXAM: XR CHEST 2 VIEWS PA AND LATERAL LOCATION: [facility] MEDICAL IMAGING DATE: 03/30/2024 INDICATION: Encephalopathy. COMPARISON: None. Procedure Note Keegan Gipson MD - 03/30/2024 For Patients: As a result of the Cures Act, medical imagingexams and procedure reports are released immediately into your electronicmedical record. You may view this report before your referring provider.If you have questions, please contact your health care provider. EXAM: XR CHEST 2 VIEWS PA AND LATERAL LOCATION: [facility] DATE: 03/30/2024 INDICATION: Encephalopathy. COMPARISON: None. IMPRESSION: Negative chest. Lungs clear. Bhupinder Quiroga MD GENERAL IMAGING * SCAN-CARDIAC STRIP (03/30/2024 6:30 PM CDT) Scanner OTHER * EXTRA TUBE LIGHT GREEN (03/30/2024 5:14 PM CDT) Blood BLOOD SPECIMEN / Unknown Extra Tube / Unknown 03/30/2024 5:14 PM CDT 03/30/2024 5:15 PM CDT Doctor Yoko LABORATORY [facility] SENDOUT INTERNAL [address] [phone] [place] [address] * (ABNORMAL) LIPID PANEL (03/30/2024 5:14 PM CDT) CHOLESTEROL,TOTAL 141 100 - 199 mg/dL 03/31/2024 1:30 PM CDT [facility] Comment: Cholesterol, Total Reference Ranges Desirable <200 mg/dL Borderline 200-239 mg/dL High >=240 mg/dL TRIGLYCERIDES 134 <150 mg/dL 03/31/2024 1:30 PM CDT [facility] HDL CHOLESTEROL 34(L) >40 mg/dL 1:30 PM CDT [facility] NON-HDL CHOLESTEROL 107 <145 mg/dl 03/31/2024 1:30 PM T [facility] CHOL/HDL RATIO 4.15 <4.50 03/31/2024 1:30 PM CDT [facility] LDL CHOLESTEROL 80 <=130 mg/dL 03/31/2024 1:30 PM T [facility] VLDL CHOLESTEROL 27 <=30 mg/dL 03/31/20 1:30 PM CDT [facility] Blood BLOOD SPECIMEN / Unknown Extra Tube / Unknown 03/30/2024 5:14 PM CDT 03/30/2024 5:15 PM CDT Paolo Alicea MD CHEMISTRY [facility] SENDOUT [address] [address] [address] [place] [address] * (ABNORMAL) SEDIMENTATION RATE (03/30/2024 5:07 PM CDT) SEDIMENTATION RATE 73(H) <20 mm/hr 2023 5:30 PM CDT [facility] Blood BLOOD SPECIMEN / Unknown Venipuncture / Unknown 03/30/2024 5:07 PM CDT 03/30/2024 5:13 PM CDT Bhupinder Quiroga MD HEMATOLOGY [facility] SENDOUT INTERNAL ZIP [address] [place] [address] * (ABNORMAL) HEMOGLOBIN A1C SCREENING (03/30/2024 5:07 PM CDT) HEMOGLOBIN A1C SCREENING 9.4(H) <=6.4 % 03/31/2024 1:26 PM CDT [facility] Blood BLOOD SPECIMEN / Unknown Venipuncture / Unknown 03/30/2024 5:07 PM CDT 03/30/2024 5:13 PM CDT Narrative [facility] - 03/31/2024 1:26 PM CDT ? (<5.7%) ?Normal ? (5.7% to 6.4%) ? Indicates prediabetes ? (>=6.5%) ? Confirms diabetes Falsely low levels may be seen with: Recent Transfusion, Recent Significant Blood Loss, Hemolytic Diseases, or Falsely elevated levels may be seen with: Untreated Anemias, Splenectomy Paolo Alicea MD CHEMISTRY Performing Organization Address City/[facility]/ZIP Co de Phone Number [facility] SENDOUT [address] ZIP [phone] [place] [address] * (ABNORMAL) CBC W PLT NO DIFF (03/30/2024 5:07 PM CDT) WHITE BLOOD COUNT 8.1 4.5 - 11.0 thou/cu mm 03/30/2024 5:19 PM CDT [facility] RED BLOOD COUNT 4.15(L) 4.30 - 5.90 mil/cu mm 03/30/2024 5:19 PM CDT [facility] HEMOGLOBIN 11.8(L) 13.5 - 17.5 g/dL 03/30/2024 5:19 PM CDT [facility] HEMATOCRIT 34.6(L) 37.0 - 53.0 % 03/30/2024 5:19 PM CDT [facility] MCV 83 80 - 100 fL 03/30/2024 5:19 PM CDT [facility] MCH 28.4 26.0 - 34.0 pg 03/30/2024 5:19 PM CDT [facility] MCHC 34.1 32.0 - 36.0 g/dL 03/30/2024 5:19 PM CDT [facility] RDW 13.7 11.5 - 15.5 % 03/30/2024 5:19 PM CDT [facility] PLATELET COUNT 385 140 - 440 thou/cu mm 03/30/2024 5:19 PM CDT [facility] MPV 9.4 6.5 - 11.0 fL 03/30/2024 5:19 PM CDT [facility] NRBC 0.0 % 03/30/2024 5:19 PM CDT [facility] ABS NRBC 0.0 thou /cu mm 03/30/2024 5:19 PM CDT [facility] Blood BLOOD SPECIMEN / Unknown Venipuncture / Unknown 03/30/2024 5:07 PM CDT 03/30/2024 5:13 PM CDT Bhupinder Quiroga MD HEMATOLOGY [facility] SENDOUT INTERNAL ZIP [phone] [place] [address] * (ABNORMAL) C-REACTIVE PROTEIN (03/30/2024 4:43 PM CDT) C-REACTIVE PROTEIN 3.4(H) <0.5 mg/dL 03/30/2024 5:13 PM CDT [facility] Blood BLOOD SPECIMEN / Unknown Venipuncture / Unknown 03/30/2024 4:43 PM CDT 03/30/2024 4:50 PM CDT Bhupinder Quiroga MD CHEMISTRY [facility] SENDOUT INTERNAL ZIP [phone] [place] [address] * (ABNORMAL) HEPATIC FUNCTION PANEL (03/30/2024 4:43 PM CDT) Pathologist [facility] [place] ALBUMIN 3.3(L) 4.0 - 4.9 g/dL 03/30/2024 5:13 PM CDT [facility] PROTEIN,TOTAL 6.6 6.0 - 8.0 g/dL 03/30/2024 5:13 PM CDT [facility] BILIRUBIN,TOTAL 0.4 0.0 - 1.2 mg/dL 03/30/2024 5:13 PM CDT [facility] BILIRUBIN,DIRECT 0.2 0.0 - 0.2 mg/dL 03/30/2024 5:13 PM CDT [facility] BILIRUBIN,INDIRE CT 0.2 0.2 - 0.8 mg/dL 03/30/2024 5:13 PM CDT [facility] ALK PHOSPHATASE 100 40 - 129 IU/L 03/30/2024 5:13 PM CDT [facility] ALT (SGPT) 5(L) 10 - 50 IU/L 03/30/2024 5:13 PM CDT [facility] AST (SGOT) 10 10 - 50 IU/L 03/30/2024 5:13 PM CDT [facility] Blood BLOOD SPECIMEN / Unknown Venipuncture / Unknown 03/30/2024 4:43 PM CDT 03/30/2024 4:50 PM CDT Bhupinder Quiroga MD CHEMISTRY [facility] SENDOUT INTERNAL ZIP [address] [place] [address] * ECHO TTE COMPLETE W CONTRAST (03/18/2024 12:15 PM CDT) Pathologist [facility] [place] AORTIC VALVE MEAN PG 21 mmHg LVEDD 4.4 cm EJECTION FRACTION 60 - 65% Anatomical Region Laterality Modality Ultrasound 03/18/2024 11:3 5 AM CDT Narrative 03/18/2024 12:53 PM CDT ECHOCARDIOGRAM SHIN HOLT ?Accession#: ?? [id number] : ?1945 78 years Study Date: ?? 03/18/2024 11:35:50 AM Gender: M ? BP: ? 161/74 mmHg Height: 175.00 cm ? BSA: ?2.25 m? ? ? Weight: 111.00 kg ? Tech: ? MCK ?Referring MD: DRE HUGHES Site: ? [facility] Reading Location: [facility] Patient Location: Inpatient. Procedure: 2D w/ Contrast, [...] documentation: 2 ml diluted Definity, lot #[id number], [facility]# [id number] was administered peripherally to enhance visualization of all left ventricular segments. . This study was interpreted by an [facility] accredited facility. CC: [facility] (med records) [facility], Med/Surg - IP [facility]. ??Final ?? Procedure Note Davi Ruiz MD - 03/18/2024 ECHOCARDIOGRAM SHIN HOLT : 1945 78 years Study Date: 03/18/2024 11:35:50 AM Gender: M BP: 161/74 mmHg Height: 175.00 cm BSA: 2.25 m? ? ? Weight: 111.00 kg Tech: ALMA Referring MD: DRE HUGHES Site: [facility] Reading Location: [facility] Patient Location: Inpatient. Procedure: 2D w/ Contrast, [...] documentation: 2 ml diluted Definity, lot #[id number], [facility]#[id number] was administered peripherally to enhance visualization of allleft ventricular segments. . This study was interpreted by an [facility] accredited facility. CC: [facility] (med records) [facility], Med/Surg - IP [facility]. Final Tiara Ocampo MD ECHO ORD from Last 3 Months Advance Directives * Full Code (Latest Code Status on File) Date Activated Date Inactivated Comments 03/30/2024 4:09 PM Question Answer Comments Code Status Discussion: Reviewed Preferences * Full Code Date Activated Date Inactivated Comments 06/23/2023 3:00 [...] Comments 08/14/2019 9:32 AM 08/15/2019 4:49 PM Care Teams Assembler Knife Relationship Specialty Start Date End Date Desiree Black MD [address] [place] [address] PCP - General Family Practice 02/05/24 Hao Drew MD [address] [place] [address] [address] [place] [address] Cardiology Cardiovascular Disease 12/30/19
--- OUTSIDE RECORDS SUMMARY | 2024-04-06 23:40 | XMS_ITS | Referral Summary ---
Author Organization [facility] Address [address] [place] [address] Care Team Providers Care Brass Roller Name Role Phone Soham James MD Primary Care Provider [phone] Allergies Active Allergy Reactions Criticality Noted Date [...] Comments Blood Pressure 118/67 08/07/2018 9:20 AM PROPERTY DISPOSAL OFFICER Pulse 64 08/07/2018 9:20 AM PROPERTY DISPOSAL OFFICER Temperature 36.6 ??C (97.9 ??F) 08/21/2012 8:20 AM CS T Respiratory Rate 20 08/07/2018 9:30 AM PROPERTY DISPOSAL OFFICER Oxygen Saturation 91% 08/07/2018 9:27 AM PROPERTY DISPOSAL OFFICER Inhaled Oxygen Concentration - - Weight 124.7 kg (275 lb) 08/07/2018 7:52 AM PROPERTY DISPOSAL OFFICER Height 177.8 cm (5' 10) 08/07/2018 7:52 AM PROPERTY DISPOSAL OFFICER Body Mass Index 39.46 08/07/2018 7:52 AM PROPERTY DISPOSAL OFFICER Plan of Treatment Not on file Procedures Procedure Name Priority Date/Time Associated Diagnosis Comments COLONOSCOPY Routine 08/07/2018 8:13 AM PROPERTY DISPOSAL OFFICER GLUCOSE BY METER Routine 08/21/2012 7:19 AM PROPERTY DISPOSAL OFFICER from Last 3 Months or Most Recently Relevant to Health Maintenance Results * COLONOSCOPY (08/07/2018 8:13 AM PROPERTY DISPOSAL OFFICER) [facility] COLONOSCOPY [facility] Endoscopy Department ___ Patient Name: Shin Best ? Procedure Date: 08/07/2018 8:13 AM ? Date of : 1945 ? Admit Type: Outpatient Age: 73 ? Room: 3 Note Status: Finalized ?Attending MD: Abraham Milner , Total Sedation Time: 41 mins of continuous bedside 1:1 Instrument Name: 325 [id number] AdultColonoscope ___ Procedure: ?Colonoscopy Indications: ?Screening for [...] Procedure Code(s): ? --- Professional --- ? 22719, Colonoscopy, flexible; with removal of tumor(s), polyp(s), or ? other lesion(s) by snare technique Diagnosis Code(s): ? --- Professional --- ? Z12.11, Encounter for screening for malignant neoplasm of colon ? K62.1, Rectal polyp CPT copyright 2017 [employer]. All rights reserved. The codes documented in this report are preliminary and upon production support supervisor review may be revised to meet current compliance requirements. Abraham Milner, 08/07/2018 9:10:30 AM I was physically present for the entire viewing portion of the exam. Abraham Milner Number of Addenda: 0 Note Initiated On: 08/07/2018 8:13 AM MRN: ?[id number] Procedure Date: ? 08/07/2018 8:13:49 AM Scope Withdrawal Time: 0 hours 13 minutes 27 seconds Total Procedure Duration: 0 hours 40 minutes 58 seconds Estimated Blood Loss: ? Scope In: 8:20:39 AM Scope Out: 9:01:37 AM RADIOLOGY RESULTS 08/07/2018 8:13 AM PROPERTY DISPOSAL OFFICER Soham James MD PROCEDURES RADIOLOGY RESULTS * Glucose by meter (08/21/2012 7:19 AM PROPERTY DISPOSAL OFFICER) Glucose 79 60 - 99 mg/dL POINT OF CARE TEST, GLUCOSE Comment:Dr/RN Notified 08/21/2012 7:19 AM PROPERTY DISPOSAL OFFICER 08/21/2012 7:25 AM PROPERTY DISPOSAL OFFICER Stacy Ayers MD [facility] POCT POINT OF CARE TEST, GLUCOSE from Last 3 Months or Most Recently Relevant to Health Maintenance Care Teams Brass Roller Relationship Specialty Start Date End Date Soham James MD [place] [id number] [place] [address] PCP - General Family Practice 07/25/12
--- OUTSIDE RECORDS SUMMARY | 2024-04-06 23:40 | XMS_ITS | Encounter Summary ---
Author Organization [facility] Address [address] [place] [address] Care Team Providers Care Hvac R Tech Name Role Phone Shanae Ugarte APRN, C.N.P. Primary Care Provide r Encounter Details Date Type Department Care Team (Late st Contact Info) Description 01/16/2024 Orders Only [facility] PCP [facility] MNT Shanae gUarte, ARRON, C.N.P. [address] [place] [address] Diabetes Mellitus Type 2 With [...] documented as of this encounter Care Teams Hvac R Tech Relationship Specialty Start Date End Date Shanae Ugarte APRN, C.N.P. [address] [place] [phone] PCP - General 11/24/23 documented as of this encounter
--- OUTSIDE RECORDS SUMMARY | 2024-04-06 23:40 | XMS_ITS | Encounter Summary ---
Author Organization [facility] Address [address] [place] [address] Care Team Providers Care Technical Assistant Name Role Phone Shanae Ugarte APRN, C.N.P. Primary Care Provide r Reason for Visit * Reason Onset Date Comments Free Style Jesus 03/26/2024 Encounter Details Date Type Department Care Team (Latest Contact Info) Description 03/26/2024 Clinical Communication Department of Family Medicine, [facility], in [address] [phone] Shanae Ugarte APRN, C.N.P. [address] [place] [address] Free Style Jesus Social History Tobacco Use Types Packs/Day Years [...] encounter Miscellaneous Notes * Telephone Encounter - Kandy Mirza - 03/29/2024 12:57 PM CDT We have not received this yet. documented in this encounter Plan of Treatment Not on file documented as of this encounter Visit Diagnoses Not on filedocumented in this encounter Additional Health Concerns Assessment Noted Time PHQ-9 Depression Total Score: 5 10/11/19 24 9:23 PM CDT documented as of this encounter Care Teams Technical Assistant Relationship Specialty Start Date End Date Shanae Ugarte APRN, C.N.P. [address] [place] [address] PCP - General 11/24/23 documented as of this encounter
--- OUTSIDE RECORDS SUMMARY | 2024-04-06 23:40 | XMS_ITS | Encounter Summary ---
Author Organization [facility] Address [address] [place] [address] Care Team Providers Care Conductor Symphonic Orchestra Name Role Phone Shanae Ugarte APRN, C.N.P. Primary Care Provide r Encounter Details Date Type Department Care Team (Late st Contact Info) Description 01/02/2024 Clinical Communication Department of Family Medicine, [facility], in [address] [phone] Shanae Ugarte APRN, C.N.P. [address] [place] [address] Social History Tobacco Use Types [...] copy of this note was faxed to [facility] so that they would have all of the necessary information. documented in this encounter Plan of Treatment Not on file documented as of this encounter Visit Diagnoses Not on filedocumented in this encounter Additional Health Concerns Assessment Noted Time PHQ-9 Depression Total Score: 5 10/11/19 24 9:23 PM CDT documented as of this encounter Care Teams Conductor Symphonic Orchestra Relationship Specialty Start Date End Date Shanae Ugarte APRN, C.N.P. [address] [place] [address] PCP - General 11/24/23 documented as of this encounter
--- OUTSIDE RECORDS SUMMARY | 2024-04-06 23:40 | XMS_ITS | Clinical Summary ---
Author Organization [facility] Address [address] [place] [id number] Care Team Providers Care End Frazer Name Role Phone Soham James MD Primary Care Provider [phone] Allergies Active Allergy Reactions Criticality Noted Date [...] Comments Blood Pressure 118/67 08/07/2018 9:20 AM STOCK AND STATION AGENT Pulse 64 08/07/2018 9:20 AM STOCK AND STATION AGENT Temperature 36.6 ??C (97.9 ??F) 08/21/2012 8:20 AM CS T Respiratory Rate 20 08/07/2018 9:30 AM STOCK AND STATION AGENT Oxygen Saturation 91% 08/07/2018 9:27 AM STOCK AND STATION AGENT Inhaled Oxygen Concentration - - Weight 124.7 kg (275 lb) 08/07/2018 7:52 AM STOCK AND STATION AGENT Height 177.8 cm (5' 10) 08/07/2018 7:52 AM STOCK AND STATION AGENT Body Mass Index 39.46 08/07/2018 7:52 AM STOCK AND STATION AGENT Plan of Treatment Health Maintenance Due Date [...] calendar year) 2023 COVID-19 Vaccine ( season) 2024 05/12/2023, 05/09/2022, 01/29/2022, Additional history [...] Diagnosis Comments COLONOSCOPY Routine 08/07/2018 8:13 AM STOCK AND STATION AGENT GLUCOSE BY METER Routine 08/21/2012 7:19 AM STOCK AND STATION AGENT from Last 3 Months or Most Recently Relevant to Health Maintenance Results * COLONOSCOPY (08/07/2018 8:13 AM STOCK AND STATION AGENT) COLONOSCOPY [facility] Endoscopy Department ___ Patient Name: Shin Best ? Procedure Date: 08/07/2018 8:13 AM ? Date of : 1945 ? Admit Type: Outpatient Age: 73 ? Room: 3 Note Status: Finalized ?Attending MD: Abraham Milner , Total Sedation Time: 41 mins of continuous bedside 1:1 Instrument Name: 325 [id number] AdultColonoscope ___ Procedure: ?Colonoscopy Indications: ?Screening for [...] Procedure Code(s): ? --- Professional --- ? 06601, Colonoscopy, flexible; with removal of tumor(s), polyp(s), or ? other lesion(s) by snare technique Diagnosis Code(s): ? --- Professional --- ? Z12.11, Encounter for screening for malignant neoplasm of colon ? K62.1, Rectal polyp CPT copyright 2017 [employer]. All rights reserved. The codes documented in this report are preliminary and upon supervisor fiber locking review may be revised to meet current compliance requirements. Abraham Milner, 08/07/2018 9:10:30 AM I was physically present for the entire viewing portion of the exam. Abraham Milner Number of Addenda: 0 Note Initiated On: 08/07/2018 8:13 AM MRN: ?[id number] Procedure Date: ? 08/07/2018 8:13:49 AM Scope Withdrawal Time: 0 hours 13 minutes 27 seconds Total Procedure Duration: 0 hours 40 minutes 58 seconds Estimated Blood Loss: ? Scope In: 8:20:39 AM Scope Out: 9:01:37 AM RADIOLOGY RESULTS 08/07/2018 8:13 AM STOCK AND STATION AGENT Soham James MD PROCEDURES RADIOLOGY RESULTS * Glucose by meter (08/21/2012 7:19 AM STOCK AND STATION AGENT) Glucose 79 60 - 99 mg/dL POINT OF CARE TEST, GLUCOSE Comment:Dr/RN Notified 08/21/2012 7:19 AM STOCK AND STATION AGENT 08/21/2012 7:25 AM STOCK AND STATION AGENT Stacy Ayers MD LAB - BEAKER POCT Performing Organization Address City/[facility] Co de Phone Number POINT OF CARE TEST, GLUCOSE from Last 3 Months or Most Recently Relevant to Health Maintenance Care Teams End Frazer Relationship Specialty Start Date End Date Soham James MD [facility] [address] [place] [address] PCP - General Family Practice 07/25/12
--- OUTSIDE RECORDS SUMMARY | 2024-04-06 23:40 | XMS_ITS | Encounter Summary ---
Author Organization [facility] Address [address] [place] [address] Care Team Providers Care Media Assistant Name Role Phone Shanae Ugarte APRN, C.N.P. Primary Care Provide r Reason for Visit * Reason Comments Med Refill Encounter Details Date Type Department Care Team (Late st Contact Info) Description 02/26/2024 Refill Department of Family Medicine, [facility], in [address] [phone] Shanae Ugarte APRN, C.N.P. [address] [place] [phone] Med Refill Social History Tobacco Use Types [...] documented as of this encounter Care Teams Media Assistant Relationship Specialty Start Date End Date Shanae Ugarte APRN, C.N.P. [address] [place] [phone] PCP - General 11/24/23 documented as of this encounter
== END 2024-03-30 13:51 | disposition home or self-care (01) ==
LOC: AMB 04-06 23:36
PROVIDERS: PCP Family Medicine; Visit Provider Emergency Medicine
DX: R41.82 Altered mental status, unspecified (principal)
CPT/HCPCS: A0425; A0429